=== PATIENT | female | born 1975 | race Caucasian/White ===

== ENCOUNTER 2020-01-29 10:08 | Outpatient (REF) | payer OTHER, SELFPAY | END 2020-01-29 10:09 | disposition home or self-care (01) | LOC: HO.BBR 10:08 | PROVIDERS: Visit Provider Internal Medicine | DX: E83.110 Hereditary hemochromatosis (principal) | CPT/HCPCS: 99195 ==

== ENCOUNTER 2020-05-19 09:40 | Outpatient (REF) | payer OTHER, SELFPAY | END 2020-05-19 09:41 | disposition home or self-care (01) | LOC: HO.BBR 09:40 | PROVIDERS: PCP Nurse Practitioner Family; Visit Provider Internal Medicine | DX: Z13.89 Encounter for screening for other disorder (principal) ==

== ENCOUNTER 2020-05-19 10:18 | Outpatient (REF) | payer SELFPAY ==
[2020-05-19 11:59] LABS: Vitamin D 25-OH Total 23.8 ng/mL (>30)
== END 2020-05-19 10:19 | disposition home or self-care (01) ==
LOC: HO.LNC 10:18
PROVIDERS: Visit Provider Pathology Anatomic Pathology & Clinical Pathology
DX: Z13.89 Encounter for screening for other disorder (principal)
CPT/HCPCS: 36415; 82306

== ENCOUNTER 2020-08-23 09:09 | Outpatient (REF) | payer OTHER, SELFPAY | END 2020-08-23 09:10 | disposition home or self-care (01) | LOC: HO.BBR 09:09 | PROVIDERS: Visit Provider Internal Medicine | DX: Z13.89 Encounter for screening for other disorder (principal) ==

== ENCOUNTER 2020-10-19 12:13 | Outpatient (REF) | payer OTHER, SELFPAY | END 2020-10-19 12:14 | disposition home or self-care (01) | LOC: HO.BBR 12:13 | PROVIDERS: Visit Provider Internal Medicine | DX: Z13.89 Encounter for screening for other disorder (principal) ==

== ENCOUNTER 2021-02-08 10:09 | Outpatient (REF) | payer OTHER, SELFPAY | END 2021-02-08 10:10 | disposition home or self-care (01) | LOC: HO.BBR 10:09 | PROVIDERS: PCP Nurse Practitioner Family; Visit Provider Internal Medicine | DX: Z13.89 Encounter for screening for other disorder (principal) ==

== ENCOUNTER 2021-03-23 15:46 | Outpatient (REF) | payer OTHER, SELFPAY | END 2021-03-23 15:47 | disposition home or self-care (01) | LOC: HO.LAB 15:46 | PROVIDERS: Visit Provider Internal Medicine | DX: Z20.822 Contact with and (suspected) exposure to COVID-19 (principal) | CPT/HCPCS: C9803; U0003; U0005 ==

== ENCOUNTER 2021-04-04 09:06 | Outpatient (REF) | payer OTHER, SELFPAY | END 2021-04-04 09:07 | disposition home or self-care (01) | LOC: HO.BBR 09:06 | PROVIDERS: Visit Provider Internal Medicine | DX: Z13.89 Encounter for screening for other disorder (principal) ==

== ENCOUNTER 2021-06-14 09:11 | Outpatient (REF) | payer OTHER, SELFPAY | END 2021-06-14 09:12 | disposition home or self-care (01) | LOC: HO.BBR 09:11 | PROVIDERS: Visit Provider Internal Medicine | DX: Z13.89 Encounter for screening for other disorder (principal) ==

== ENCOUNTER 2021-08-21 09:12 | Outpatient (REF) | payer OTHER, SELFPAY | END 2021-08-21 09:13 | disposition home or self-care (01) | LOC: HO.BBR 09:12 | PROVIDERS: Visit Provider Internal Medicine | DX: Z13.89 Encounter for screening for other disorder (principal) ==

== ENCOUNTER 2022-01-18 11:50 | Outpatient (REF) | payer OTHER, SELFPAY ==
[2022-01-18 13:44] LABS: Appearance Urine Clear; Color Urine Yellow; Glucose Urine UA Negative (Negative); Leukocyte Esterase Urine Small (1+) (Negative); Nitrite Urine Negative (Negative); UMIC TRIGGER UACC YES; Urine Blood Large (3+) (Negative); Urine Ketones Negative (Negative); Urine Protein Negative (Neg-Trace)
[2022-01-18 13:46] LABS: MANUAL DIFF FLAG NO
[2022-01-18 13:48] LABS: Basophils Percent Auto 0.6 % (0-2); Eosinophils Absolute Auto 0.1 X10*3/uL (0.0-0.4); Eosinophils Percent Auto 1.3 % (0-4); Hematocrit 35.3 % (37.0-47.0); Hemoglobin 11.8 g/dl (12.0-16.0); Imm Gran Abs Auto 0.02 X10*3/uL (0.00-0.03); Imm Gran Pct Auto 0.3 % (0.0-0.4); Lymphocytes Percent Auto 13.6 % (20-40); Mean Corpuscular HGB Conc 33.4 g/dl (31.0-35.0); Mean Corpuscular Hemoglobin 29.9 pg (27.0-33.0); Mean Corpuscular Volume 89.6 fL (80.0-98.0); Mean Platelet Volume 10.5 fL (9.4-12.3); Monocytes Absolute Auto 0.5 X10*3/uL (0.1-1.2); Monocytes Percent Auto 6.4 % (2-11); Neutrophils Absolute Auto 5.5 x10*3/uL (2.0-8.3); Neutrophils Percent Auto 77.8 % (45-73); Platelet Count 272 X10*3/uL (160-400); Red Blood Count 3.94 X10*6/uL (4.20-5.50); Red Cell Distribution Width 14.6 % (11.0-16.0)
[2022-01-18 13:55] LABS: Bacteria Urine None Seen (None Seen); Hyaline Casts Urine 0-2 /LPF (0-2); RBC Urine >20 /HPF (0-2); UACC Culture Trigger YES; WBC Urine 0-5 /HPF (0-5)
[2022-01-18 14:01] LABS: Alanine Aminotransferase 18 U/L (0-31); Albumin Level 3.8 g/dL (3.5-5.0); Alkaline Phosphatase 43 U/L (39-117); Anion Gap 11 (12-20); Aspartate Amino Transferase 17 U/L (5-31); Bilirubin Total 0.4 mg/dL (0.0-1.0); Blood Urea Nitrogen 11 mg/dL (9-16); Calcium 8.2 mg/dL (8.4-10.2); Carbon Dioxide 24 mmol/L (22-29); Chloride 107 mmol/L (96-108); Cholesterol 148 mg/dL; Estimated Glomerular Filt Rate > 60; Glucose Fasting 86 mg/dL (60-99); HDL Cholesterol 37 mg/dL; LDL Cholesterol Calculated 93 mg/dl; Sodium 138 mmol/L (135-145); Triglycerides 94 mg/dL
[2022-01-18 14:23] LABS: Ferritin 8 ng/mL (10-250); TSH reflex Free T4 0.52 uIU/mL (0.32-4.0)
== END 2022-01-18 11:51 | disposition home or self-care (01) ==
LOC: HO.10HDL 11:50
PROVIDERS: Visit Provider Nurse Practitioner Family
DX: Z00.00 Encounter for general adult medical examination without abnormal findings (principal)
CPT/HCPCS: 36415; 80053; 80061; 81001; 82728; 84443; 85025; 87086

== ENCOUNTER 2022-02-08 09:20 | Outpatient (REF) | payer OTHER, SELFPAY ==
--- NOTE | ~2022-02-08 | US_ITS ---
EXAMINATION: US THYROID CLINICAL INFORMATION: Nontoxic single thyroid nodule. COMPARISON: Ultrasound thyroid 01/09/2020. TECHNIQUE: Linear transducer grayscale and color Doppler examination with attention to the region of the thyroid. FINDINGS: SIZE: Measurements of the thyroid lobes and nodules are given in sagittal, anteroposterior and transverse dimensions respectively. Right Thyroid Lobe: 5.7 x 2.0 x 2.0 cm, volume 12.0 mL. Previously 5.7 x 1.8 x 2.2 cm, volume 10.8 mL. Parenchyma: The gland echotexture is heterogeneous. Thyroid vascularity is increased. Left Thyroid Lobe: 5.8 x 2.1 x 2.3 cm, volume 14.4 mL. Previously 5.1 x 2.1 x 2.4 cm, volume 13.4 mL. Parenchyma: The gland echotexture is heterogeneous. Thyroid vascularity is increased. Isthmus: 0.21 cm in maximum AP dimension. Previously 0.30 cm. Estimated total number of nodules greater than or equal to 1 cm: 4. 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 Location: Right superior. Size: 2.8 x 1.8 x 2.0 cm, volume 5.4 mL. Previously: 2.6 x 1.4 x 2.5 cm, volume 4.8 mL. Nodule characteristics: Composition: Solid/almost completely solid (2). Echogenicity: Isoechoic (1). Shape: Not taller than wide (0). Margins: Smooth (0). Echogenic Foci: Macrocalcifications (1). ACR TI-RADS total points: 4 ACR TI-RADS category: 4 Significant change in size (>/= 20% in 2 dimensions and minimal increase of 2 mm or 50% or greater increase in volume): No Change in features: No Change in ACR TI-RADS risk category: No 2. Location: Right mid. Size: 2.2 x 1.1 x 1.6 cm, volume 2.0 mL. Previously: 1.8 x 0.78 x 1.3 cm, volume 0.95 mL. Nodule characteristics: Composition: Solid/almost completely solid (2). Echogenicity: Isoechoic (1). Shape: Not taller than wide (0). Margins: Smooth (0). Echogenic Foci: Punctate echogenic foci (3). ACR TI-RADS total points: 6 ACR TI-RADS category: 4 Significant change in size (>/= 20% in 2 dimensions and minimal increase of 2 mm or 50% or greater increase in volume): Yes Change in features: No Change in ACR TI-RADS risk category: No 3. Location: Right mid. Size: 1.4 x 0.70 x 1.1 cm, volume 0.54 mL. Previously: 1.3 x 0.58 x 0.91 cm, volume 0.36 mL. Nodule characteristics: Composition: Solid/almost completely solid (2). Echogenicity: Isoechoic (1). Shape: Not taller than wide (0). Margins: Smooth (0). Echogenic Foci: None (0). ACR TI-RADS total points: 3 ACR TI-RADS category: 3 Significant change in size (>/= 20% in 2 dimensions and minimal increase of 2 mm or 50% or greater increase in volume): No Change in features: No Change in ACR TI-RADS risk category: No 4. Location: Left mid. Size: 2.8 x 2.0 x 1.6 cm, volume of 4.7 mL. Previously: 3.4 x 1.3 x 2.4 cm, volume 5.5 mL. Nodule characteristics: Composition: Solid/almost completely solid (2). Echogenicity: Isoechoic (1). Shape: Taller than wide (3). Margins: Smooth (0). Echogenic Foci: None (0). ACR TI-RADS total points: 6 ACR TI-RADS category: 4 Significant change in size (>/= 20% in 2 dimensions and minimal increase of 2 mm or 50% or greater increase in volume): No Change in features: No Change in ACR TI-RADS risk category: No NODES: No lymphadenopathy is seen in the tissue surrounding the thyroid gland. US/US thyroid IMPRESSION: Bilateral thyroid nodules are present. The most concerning nodules seen bilaterally meet criteria for TI-RADS category 4. These measure 2.8 and 2.2 cm in greatest dimension on the right, 2.8 cm on the left. Given the size greater than 1.5 cm, correlation with fine-needle aspiration is recommended. ACR TI-RADS RECOMMENDATION REFERENCE: * TR4 (4-6 points): FNA if more than or equal to 1.5 cm in maximum dimension, followup ultrasound in 1, 2, 3 and 5 years if 1 to 1.4 cm in maximum dimension. RECOMMENDATION: FINE NEEDLE ASPIRATION
== END 2022-02-08 09:21 | disposition home or self-care (01) ==
LOC: HO.HMGCX 09:20
PROVIDERS: PCP Nurse Practitioner Family; Visit Provider Nurse Practitioner Family
DX: E04.1 Nontoxic single thyroid nodule (principal)
CPT/HCPCS: 76536

== ENCOUNTER 2022-04-19 15:32 | Outpatient (REF) | payer OTHER, SELFPAY ==
[2022-04-19 15:50] LABS: MANUAL DIFF FLAG NO
[2022-04-19 17:52] LABS: Appearance Urine Clear; Color Urine Yellow; Glucose Urine UA Negative (Negative); Leukocyte Esterase Urine Negative (Negative); Nitrite Urine Negative (Negative); PH 8.5 (5.0-9.0); Specific Gravity - Urine 1.015 (1.005-1.025); UMIC TRIGGER UACC YES; Urine Blood Moderate (2+) (Negative); Urine Ketones Negative (Negative); Urine Protein Negative (Neg-Trace)
[2022-04-19 17:55] LABS: Basophils Absolute Auto 0.1 X10*3/uL (0.0-0.2); Basophils Percent Auto 0.8 % (0-2); Eosinophils Absolute Auto 0.3 X10*3/uL (0.0-0.4); Eosinophils Percent Auto 3.7 % (0-4); Hemoglobin 12.1 g/dl (12.0-16.0); Imm Gran Abs Auto 0.04 X10*3/uL (0.00-0.03); Imm Gran Pct Auto 0.6 % (0.0-0.4); Lymphocytes Absolute Auto 1.9 X10*3/uL (1.2-4.9); Lymphocytes Percent Auto 26.2 % (20-40); Mean Corpuscular HGB Conc 32.7 g/dl (31.0-35.0); Mean Corpuscular Hemoglobin 29.8 pg (27.0-33.0); Mean Corpuscular Volume 91.1 fL (80.0-98.0); Mean Platelet Volume 10.2 fL (9.4-12.3); Monocytes Absolute Auto 0.5 X10*3/uL (0.1-1.2); Monocytes Percent Auto 6.5 % (2-11); Neutrophils Absolute Auto 4.5 x10*3/uL (2.0-8.3); Neutrophils Percent Auto 62.2 % (45-73); Platelet Count 371 X10*3/uL (160-400); Red Blood Count 4.06 X10*6/uL (4.20-5.50); Red Cell Distribution Width 13.2 % (11.0-16.0); White Blood Count 7.2 X10*3/uL (4.8-10.8)
[2022-04-19 17:59] LABS: Bacteria Urine None Seen (None Seen); Hyaline Casts Urine 0-2 /LPF (0-2); RBC Urine >20 /HPF (0-2); Squamous Epithelial Cell Urine 0-2 /HPF (0-2); WBC Urine 0-5 /HPF (0-5)
[2022-04-19 18:36] LABS: Ferritin 8 ng/mL (10-250); Iron 33 mcg/dL (30-160); Percent Iron Saturation 12 % (15-50); Total Iron Binding Capacity 266 mcg/dL (228-428); Unsaturated Iron Binding 233 ug/dL
== END 2022-04-19 15:33 | disposition home or self-care (01) ==
LOC: HO.LAB 15:32
PROVIDERS: PCP Nurse Practitioner Family; Visit Provider Nurse Practitioner Family
DX: Z00.00 Encounter for general adult medical examination without abnormal findings (principal); E83.119 Hemochromatosis, unspecified
CPT/HCPCS: 36415; 81001; 82728; 83540; 85025

== ENCOUNTER 2022-08-31 06:42 | Day surgery (SDC) | payer OTHER, SELFPAY ==
--- NOTE | 2022-08-30 09:30 | P.CONAN_ITS ---
Documented by User: Faiza Campbell NP 08/30/22 09:33 HPI - Anesthesia Eval Consult details Narrative: 46yo F for Upper Endoscopy and Colonoscopy *Multiple Allergies* PMFSH Active Problems Active Problems: All Active Problems (Updated 04/04/22 @ 16:37 by Medardo Valdovinos MD) Upper respiratory tract infection (Acute) Hemochromatosis (Acute) Nodular thyroid disease (Acute) Physical exam (Acute) Past Medical History Medical History (Updated 04/04/22 @ 16:37 by Medardo Valdovinos MD) Asthma Enlarged thyroid Fibroadenoma of left breast Hemochromatosis Hepatic adenoma Hepatic hemangioma MVP (mitral valve prolapse) Nodular thyroid disease Renal cyst Family History Family History Father HTN (hypertension) Type 2 diabetes mellitus High cholesterol Ulcerative colitis Mother Pulmonary embolism Multiple myeloma Maternal Grandmother Diabetes mellitus CVD (cardiovascular disease) Maternal Grandfather CVD (cardiovascular disease) Paternal Grandfather Substance use disorder Paternal Grandmother Uterine cancer Maternal Uncle CVD (cardiovascular disease) Substance use disorder Sister No problems noted. Son No problems noted. Daughter No problems noted. Surgical History Surgical History History of section History of tonsillectomy and adenoidectomy Social History Social History Housing: House Alcohol intake: current Alcohol intake frequency: holidays/special occasions only Patient Tobacco Use Status: Never used Tobacco e-Cigarette/Vaping Use: Never Used Second Hand Smoke Exposure: No Advance Directives: No Advance Directives Information Provided: Yes Nutrition Risks: No Nutritional Risk service: No Current occupational status: employed Current occupation: [employer] Current occupational exposures/hazards: No Cognitive needs: No Hearing needs: No Vision needs: No Meds Allergies Allergy/AdvReac Type Severity Reaction Status Date / Time hydrocodone [HYDROCODONE] Allergy Intermediate HIVES Verified 04/04/22 16:21 amoxicillin [Augmentin] Allergy Unknown unknown Verified 04/04/22 16:21 chlorhexidine Allergy Unknown unknown Verified 04/04/22 16:21 clavulanic acid [Augmentin] Allergy Unknown unknown Verified 04/04/22 16:21 doxycycline Allergy Unknown anaphylaxis Verified 04/04/22 16:21 ibuprofen [IBUPROFEN] Allergy Unknown HIVES Verified 04/04/22 16:21 meperidine [Demerol] Allergy Unknown unknown Verified 04/04/22 16:21 morphine [MORPHINE] Allergy Unknown HIVES Verified 04/04/22 16:21 prednisone Allergy neuropathy Verified 08/30/22 11:49 acetaminophen [From PERCOCET] AdvReac Unknown HIVES Verified 04/04/22 16:21 oxycodone [From PERCOCET] AdvReac Unknown HIVES Verified 04/04/22 16:21 Home Medications Medication Instructions Recorded Confirmed Last Taken Type albuterol sulfate 90 mcg/actuation 2 puff PO QID PRN 03/31/20 01/09/22 Unknown History aerosol inhaler budesonide-formoterol HFA 160 2 puff inhalation BID 04/04/22 Unknown History mcg-4.5 mcg/actuation aerosol inhaler (Symbicort) montelukast 10 mg tablet 10 mg PO DAILY 04/04/22 Unknown History norgestimate 0.25 mg-ethinyl 1 tab PO DAILY 04/04/22 Unknown History estradiol 35 mcg tablet Exam Exam Date and Time: August 30, 2022 0930 Pertinent Lab Results Pertinent Lab Results: Laboratory Tests 01/18/22 04/19/22 11:25 15:46 WBC 7.2 Hgb 12.1 Hct 37.0 Plt Count 371 D Sodium 138 Potassium 4.0 Chloride 107 Carbon Dioxide 24 BUN 11 Creatinine 0.74 Assessment and Plan Assessment Anesthesia Assessment: Chart Reviewed Documented by User: Johnny Baker MD 08/31/22 07:32 [facility] Past Medical History Medical History (Updated 04/04/22 @ 16:37 by Medardo Valdovinos MD) Asthma Enlarged thyroid Fibroadenoma of left breast Hemochromatosis Hepatic adenoma Hepatic hemangioma MVP (mitral valve prolapse) Nodular thyroid disease Renal cyst Family History Family History Father HTN (hypertension) Type 2 diabetes mellitus High cholesterol Ulcerative colitis Mother Pulmonary embolism Multiple myeloma Maternal Grandmother Diabetes mellitus CVD (cardiovascular disease) Maternal Grandfather CVD (cardiovascular disease) Paternal Grandfather Substance use disorder Paternal Grandmother Uterine cancer Maternal Uncle CVD (cardiovascular disease) Substance use disorder Sister No problems noted. Son No problems noted. Daughter No problems noted. Family history of problems with anesthesia: No Surgical History Surgical History History of section History of tonsillectomy and adenoidectomy History of Problems with Anesthesia: No Social History Social History Housing: House Alcohol intake: current Alcohol intake frequency: holidays/special occasions only Patient Tobacco Use Status: Never used Tobacco e-Cigarette/Vaping Use: Never Used Second Hand Smoke Exposure: No Advance Directives: No Advance Directives Information Provided: Yes Nutrition Risks: No Nutritional Risk service: No Current occupational status: employed Current occupation: [employer] Current occupational exposures/hazards: No Cognitive needs: No Hearing needs: No Vision needs: No Meds Allergies Allergy/AdvReac Type Severity Reaction Status Date / Time hydrocodone [HYDROCODONE] Allergy Intermediate HIVES Verified 04/04/22 16:21 amoxicillin [Augmentin] Allergy Unknown unknown Verified 04/04/22 16:21 chlorhexidine Allergy Unknown unknown Verified 04/04/22 16:21 clavulanic acid [Augmentin] Allergy Unknown unknown Verified 04/04/22 16:21 doxycycline Allergy Unknown anaphylaxis Verified 04/04/22 16:21 ibuprofen [IBUPROFEN] Allergy Unknown HIVES Verified 04/04/22 16:21 meperidine [Demerol] Allergy Unknown unknown Verified 04/04/22 16:21 morphine [MORPHINE] Allergy Unknown HIVES Verified 04/04/22 16:21 prednisone Allergy neuropathy Verified 08/30/22 11:49 acetaminophen [From PERCOCET] AdvReac Unknown HIVES Verified 04/04/22 16:21 oxycodone [From PERCOCET] AdvReac Unknown HIVES Verified 04/04/22 16:21 Home Medications Medication Instructions Recorded Confirmed Last Taken Type albuterol sulfate 90 mcg/actuation 2 puff PO QID PRN 03/31/20 01/09/22 Unknown History aerosol inhaler budesonide-formoterol HFA 160 2 puff inhalation BID 04/04/22 Unknown History mcg-4.5 mcg/actuation aerosol inhaler (Symbicort) montelukast 10 mg tablet 10 mg PO DAILY 04/04/22 Unknown History norgestimate 0.25 mg-ethinyl 1 tab PO DAILY 04/04/22 Unknown History estradiol 35 mcg tablet Exam Airway Mallampati Class: III TM Dist: <=3cm Neck ROM: Limited Heart: rrr Lungs: cta Assessment and Plan Assessment Anesthesia Assessment: Anesthesia Plan Discussed Final Anesthetic Review Family History of Problems with Anesthesia: No History of Problems with Anesthesia: No NPO: Yes ASA Class: II Final Preanesthetic Review: No Changes in Pt Med Stat, Meds/Allgs Chart Reviewed, Consent Obtained/Reviewed and Anes Risks/Benef Reviewed Patient Risk: Intermediate Procedure Risk: Intermediate Anesthetic Plan Anesthetic Plan: MAC: and Agree w/ Assess. and Plan Disposition: Standard PACU
[2022-08-31 07:06] LABS: UPreg QC Valid YES; Urine Pregnancy NEGATIVE (NEGATIVE)
[2022-08-31 07:09] VITALS: BP 96/58; PULSE 75; RESP 16; TEMP 36.4; O2SAT 97; BMI 24.8
--- NOTE | 2022-08-31 07:31 | MHC.SHP ---
Pre-Procedural Eval Section A Date of Service: 08/31/22 Section B Chief Complaint: screening,reflux,dysphagia Details of Present Illness: see H&P no changes Relevant Family History (Specify if Yes): No Relevant Social History: None Present Medications: see Short Stay [facility] assessment Medical History: No relevant PMH History of Previous Operations: Relevant previous surgery/procedure and date(s) Allergies: Allergies Allergy/AdvReac Type Severity Reaction Status Date / Time hydrocodone [HYDROCODONE] Allergy Intermediate HIVES Verified 04/04/22 16:21 amoxicillin [Augmentin] Allergy Unknown unknown Verified 04/04/22 16:21 chlorhexidine Allergy Unknown unknown Verified 04/04/22 16:21 clavulanic acid [Augmentin] Allergy Unknown unknown Verified 04/04/22 16:21 doxycycline Allergy Unknown anaphylaxis Verified 04/04/22 16:21 ibuprofen [IBUPROFEN] Allergy Unknown HIVES Verified 04/04/22 16:21 meperidine [Demerol] Allergy Unknown unknown Verified 04/04/22 16:21 morphine [MORPHINE] Allergy Unknown HIVES Verified 04/04/22 16:21 prednisone Allergy neuropathy Verified 08/30/22 11:49 acetaminophen [From PERCOCET] AdvReac Unknown HIVES Verified 04/04/22 16:21 oxycodone [From PERCOCET] AdvReac Unknown HIVES Verified 04/04/22 16:21 Review of Systems Sugical H&P ROS: Negative: Constitution, Cardiovascular, Respiratory, Neurological, Psychiatric, Hem-Onc, Allergic/Immunologic, Gastrointestinal, Genitourinary, Musculoskeletal, Integumentary, Endocrine and Eyes/Ears/Nose/Throat Exam Surgical H&P Exam: Normal: HEENT, Normal: Heart, Normal: Lungs, Normal: Extremities, Normal: Abdomen, Normal: Skin and Normal: Neurological Plan Diagnosis/Plan: Unchanged I have reviewed the history and physical and performed a pertinent physical examination on my patient. No changes have occurred unless specified. Time Spent With Patient Time: Total time managing care of this patient today ____ minutes.
[2022-08-31 08:14] VITALS: BP 95/46; PULSE 77; RESP 16; TEMP 36.3; O2SAT 97
--- NOTE | 2022-08-31 08:18 | PM.OP ---
Brief Operative Note Date of Service: 08/31/22 Pre-op diagnosis: dysphagia, screenin Post-op diagnosis: same Procedure: egd colon Surgeon: Raúl Pike Anesthesia: MAC Was an Clinical Educator used for this Procedure?: No Estimated blood loss (mL): 2 Pathology: other Condition: stable Disposition: PACU
[2022-08-31 08:29] VITALS: BP 96/53; PULSE 87; RESP 16; TEMP 36.6; O2SAT 100
--- NOTE | 2022-08-31 09:06 | OP_ITS ---
DATE OF SERVICE: 08/31/2022 SURGEON: Raúl Pike MD INDICATIONS: Dysphagia and colon cancer screening. PREOPERATIVE DIAGNOSIS: POSTOPERATIVE DIAGNOSIS: PROCEDURE PERFORMED: Upper endoscopy with biopsy and colonoscopy to the terminal ileum with biopsy. ESTIMATED BLOOD LOSS: COMPLICATIONS: ANESTHESIA: Monitored anesthesia care. ASSISTANTS: SPECIMENS: DESCRIPTION OF PROCEDURE: History and physical performed. The risks and benefits of the procedure were explained to the patient. Informed consent was obtained. The patient was placed in left lateral decubitus position. The Olympus videogastroscope was introduced into the esophagus, stomach, and duodenum. Examination was performed. The scope was removed. She tolerated the procedure well and was repositioned for colonoscopy. Digital rectal exam was performed and it was found to be normal. The Olympus pediatric colonoscope was introduced into the rectum and advanced to the cecum without difficulty. The cecum was identified by transillumination, palpation, and identification of the ileocecal valve. Examination was performed. The scope was removed. She tolerated both procedures well and was returned to the recovery area in stable condition. FINDINGS: Upper endoscopy: 1. The esophagus showed an irregular EG junction. This was biopsied. 2. The stomach was normal. Antral biopsies were obtained to rule out H pylori. 3. Duodenum: The bulb and second portion were normal. Biopsies were obtained to evaluate for any evidence of celiac disease. Colonoscopy: The terminal ileum was normal. Visualized colonic mucosa was normal. Quality of the prep was good. There were no polyps. There was no evidence of colitis. Retroflexed examination showed no abnormalities. Biopsies were obtained from the sigmoid randomly. IMPRESSION: 1. Normal upper endoscopy. 2. Normal colonoscopy. RECOMMENDATION: Follow up biopsy results. MD HEIDI Page/JAKYL / [id number]
== END 2022-08-31 08:50 | disposition home or self-care (01) ==
PROVIDERS: Nurse Practitioner; PCP Nurse Practitioner Family; Visit Provider Internal Medicine Gastroenterology
PROC: (CPT 45378; principal; 2022-08-31 07:30)
DX: Z12.11 Encounter for screening for malignant neoplasm of colon (principal); R13.10 Dysphagia, unspecified; K21.9 Gastro-esophageal reflux disease without esophagitis; J45.909 Unspecified asthma, uncomplicated; Z79.899 Other long term (current) drug therapy; Z88.1 Allergy status to other antibiotic agents; Z88.5 Allergy status to narcotic agent; Z88.8 Allergy status to other drugs, medicaments and biological substances
CPT/HCPCS: 45378; 43239; 81025; 88305; 88342; J2250

== ENCOUNTER 2022-12-21 08:56 | Outpatient (REF) | payer OTHER, SELFPAY ==
[2022-12-21 11:02] LABS: MANUAL DIFF FLAG NO
[2022-12-21 11:06] LABS: Basophils Absolute Auto 0.1 X10*3/uL (0.0-0.2); Basophils Percent Auto 1.3 % (0-2); Eosinophils Absolute Auto 0.1 X10*3/uL (0.0-0.4); Eosinophils Percent Auto 3.1 % (0-4); Hematocrit 33.9 % (37.0-47.0); Hemoglobin 10.2 g/dl (12.0-16.0); Imm Gran Abs Auto 0.01 X10*3/uL (0.00-0.03); Imm Gran Pct Auto 0.2 % (0.0-0.4); Lymphocytes Absolute Auto 1.5 X10*3/uL (1.2-4.9); Lymphocytes Percent Auto 32.2 % (20-40); Mean Corpuscular HGB Conc 30.1 g/dl (31.0-35.0); Mean Corpuscular Hemoglobin 24.9 pg (27.0-33.0); Mean Corpuscular Volume 82.7 fL (80.0-98.0); Mean Platelet Volume 10.4 fL (9.4-12.3); Monocytes Absolute Auto 0.4 X10*3/uL (0.1-1.2); Monocytes Percent Auto 9.3 % (2-11); Neutrophils Absolute Auto 2.5 x10*3/uL (2.0-8.3); Neutrophils Percent Auto 53.9 % (45-73); Platelet Count 439 X10*3/uL (160-400); Red Cell Distribution Width 17.8 % (11.0-16.0); White Blood Count 4.5 X10*3/uL (4.8-10.8)
[2022-12-21 11:08] LABS: Appearance Urine Clear; Color Urine Yellow; Glucose Urine UA Negative (Negative); Leukocyte Esterase Urine Negative (Negative); Nitrite Urine Negative (Negative); PH 6.5 (5.0-9.0); Specific Gravity - Urine 1.025 (1.005-1.025); UMIC TRIGGER UACC YES; Urine Blood Large (3+) (Negative); Urine Ketones Negative (Negative); Urine Protein Trace mg/dL (Neg-Trace)
[2022-12-21 11:22] LABS: Bacteria Urine Trace (None Seen); Hyaline Casts Urine 0-2 /LPF (0-2); WBC Urine 0-5 /HPF (0-5)
[2022-12-21 11:41] LABS: Ferritin 7 ng/mL (10-250); TSH reflex Free T4 1.07 uIU/mL (0.32-4.0)
[2022-12-21 11:51] LABS: Alanine Aminotransferase 12 U/L (0-31); Alkaline Phosphatase 47 U/L (39-117); Anion Gap 12 (12-20); Aspartate Amino Transferase 17 U/L (5-31); Bilirubin Total 0.1 mg/dL (0.0-1.0); Blood Urea Nitrogen 10 mg/dL (9-16); Calcium 8.8 mg/dL (8.4-10.2); Carbon Dioxide 20 mmol/L (22-29); Chloride 112 mmol/L (96-108); Cholesterol 155 mg/dL (<200); Estimated Glomerular Filt Rate > 60; Glucose Fasting 105 mg/dL (60-99); HDL Cholesterol 44 mg/dL (>40); Iron 17 mcg/dL (30-160); LDL Cholesterol Calculated 96 mg/dL (<100); Percent Iron Saturation 6 % (15-50); Potassium 4.3 mmol/L (3.3-5.1); Sodium 140 mmol/L (135-145); Total Iron Binding Capacity 280 mcg/dL (228-428); Triglycerides 78 mg/dL (<150); Unsaturated Iron Binding 263 ug/dL
== END 2022-12-21 08:57 | disposition home or self-care (01) ==
LOC: HO.10HDL 08:56
PROVIDERS: Visit Provider Nurse Practitioner Family
DX: Z13.220 Encounter for screening for lipoid disorders (principal); E04.1 Nontoxic single thyroid nodule; K22.70 Barrett's esophagus without dysplasia; E83.119 Hemochromatosis, unspecified
CPT/HCPCS: 36415; 80053; 80061; 81001; 82728; 83540; 84443; 85025

== ENCOUNTER 2023-05-02 07:13 | Outpatient (AMB) | payer OTHER, SELFPAY ==
--- NOTE | 2023-05-02 07:24 | A.OFFPC_ITS ---
Intake Visit Reasons: Back muscle sprain [phone] Allergies hydrocodone [HYDROCODONE] Allergy (Intermediate, Verified 09/27/22 14:01) HIVES amoxicillin [Augmentin] Allergy (Unknown, Verified 09/27/22 14:01) unknown chlorhexidine Allergy (Unknown, Verified 09/27/22 14:01) unknown clavulanic acid [Augmentin] Allergy (Unknown, Verified 09/27/22 14:01) unknown doxycycline Allergy (Unknown, Verified 09/27/22 14:01) anaphylaxis ibuprofen [IBUPROFEN] Allergy (Unknown, Verified 09/27/22 14:01) HIVES meperidine [Demerol] Allergy (Unknown, Verified 09/27/22 14:01) unknown morphine [MORPHINE] Allergy (Unknown, Verified 09/27/22 14:01) HIVES prednisone Allergy (Verified 09/27/22 14:01) neuropathy acetaminophen [From PERCOCET] Adverse Reaction (Unknown, Verified 09/27/22 14:01) HIVES oxycodone [From PERCOCET] Adverse Reaction (Unknown, Verified 09/27/22 14:01) HIVES Medication List - Last Reconciled 05/02/23 by ISAIAH Briones albuterol sulfate 90 mcg/actuation 2 puffs PO QID PRN budesonide-formoterol 160-4.5 mcg/actuation (Symbicort) 2 puffs inhalation BID cyclobenzaprine 10 mg PO BID PRN 15 days epinephrine (Auvi-Q) IM lifitegrast 5% (Xiidra) drps ophthalmic (eye) montelukast 10 mg PO DAILY norgestimate-ethinyl estradiol 0.25-35 mg-mcg 1 tab PO DAILY omeprazole 20 mg PO DAILY Tobacco use date assessed: 09/27/22 HPI Back muscle sprain [phone] HPI Details Pt c/o pain to her right occipital region that radiates to her right posterior neck and trap region. She was given cyclobenzaprine which does help. Will refer to PT. Denies fever, chills, and dizziness. Neck strain [facility] Medical History (Updated 05/02/23 @ 07:28 by ISAIAH Briones) Barretts esophagus Enlarged thyroid MVP (mitral valve prolapse) Fibroadenoma of left breast Renal cyst Hepatic hemangioma Hepatic adenoma Asthma Hemochromatosis Nodular thyroid disease Surgical History (Updated 02/20/23 @ 17:20 [facility] H/O thyroidectomy History of tonsillectomy and adenoidectomy History of section Family History Father HTN (hypertension) Type 2 diabetes mellitus High cholesterol Ulcerative colitis Mother Pulmonary embolism Multiple myeloma Maternal Grandmother Diabetes mellitus CVD (cardiovascular disease) Maternal Grandfather CVD (cardiovascular disease) Paternal Grandfather Substance use disorder Paternal Grandmother Uterine cancer Maternal Uncle CVD (cardiovascular disease) Substance use disorder Sister No problems noted. Son No problems noted. Daughter No problems noted. Social History Housing: House Alcohol intake: current Alcohol intake frequency: holidays/special occasions only Patient Tobacco Use Status: Never used Tobacco e-Cigarette/Vaping Use: Never Used Second Hand Smoke Exposure: No service: No Current occupational status: employed Current occupation: [employer] Current occupational exposures/hazards: No Cognitive needs: No Hearing needs: No Vision needs: No Questionnaire Thrive Questionnaire Date Thrive assessed: 01/09/22 ABI-7 AMB Questionnaire ABI-7 Date ABI - 7 assessed: 01/09/22 Source: Developed by Drs. Rosales Rose, Thelma Willams, King Larson and colleagues, with an educational marjorie from [employer]. Review of Systems Const Reports as per HPI Physical exam (Primary Care) Tobacco/Smoking Status: Tobacco use Status Tobacco use date assessed 09/27/22 05/02/23 07:25 Patient Tobacco Use Status Never used Tobacco 05/02/23 07:25 e-Cigarette/Vaping Use Never Used 05/02/23 07:25 Thrive Assessment: Date of Thrive Assessment Date Thrive assessed 01/09/22 05/02/23 07:25 Const General: cooperative Orientation/consciousness: patient oriented x3 Neuro General: patient oriented x3 Psych Appearance: grossly normal Mental Status: mental status grossly normal Speech and movement: Clear speech present Affect: normal affect Attitude: cooperative Thought process: Normal thought process present Thought content: Normal thought content present Insight: Good insight present (Psych) Judgement: Good judgement present (Psych) Telehealth Telehealth Location of provider rendering services: practice address Location of patient: address on file Patient Identification confirmed using: Name, : Yes Telehealth method: video Patient verbally consented to treatment: Yes Patient verbally consented to billing insurance company: Yes Patient informed of any privacy concerns related to visit: Yes Minutes spent on Phone/Video with Pt.: 10 Assessment and Plan Assessment & Plan (1) Neck strain: Code(s): S16.1XXA - Strain of muscle, fascia and tendon at neck level, initial encounter Plan: Referred to PT, cyclobenzaprine sent Plan The patient agreed to the use of a medical research associate for this encounter. Scribed for ISAIAH Babb by Rubina Carcamo medical research associate, on 05/02/2023 at 07:25 EST. Orders: Orders PT Evaluation and Treatment Today S16.1XXA - Strain of muscle, fascia and tendon at neck level, initial encounter Medications: New cyclobenzaprine 10 mg PO BID 15 days PRN 30 tabs 0RF muscle spasm Coding Level of Care Code Tele Est Pt Level 3 (00710) Diagnoses Neck strain S16.1XXA
== END 2023-05-02 07:47 | disposition home or self-care (01) ==
LOC: HO.HMGC 07:13
PROVIDERS: PCP Nurse Practitioner Family; Visit Provider Nurse Practitioner Family
DX: S16.1XXA Strain of muscle, fascia and tendon at neck level, initial encounter (principal)
CPT/HCPCS: 99213

== ENCOUNTER 2023-06-27 09:33 | Outpatient (AMB) | payer OTHER, SELFPAY ==
[2023-06-27 09:36] VITALS: BP 102/60; PULSE 82; O2SAT 98; BMI 25.5
--- NOTE | 2023-06-27 09:36 | MHC.PC.OV ---
Vital Signs 06/27/23 09:36 Height 5 ft 3 in Weight 144 lb BMI 25.5 BP 102/60 Blood Pressure Location Rt brachial Position Sitting Pulse 82 Pulse Source Pulse Oximeter Pulse Oximetry (%) 98 Oxygen Delivery Method Room Air Intake Visit Reasons: Followup UC tachycardia Intake Note: pt is here for f/u tachycardia Psychiatric Technician Assistant Required: No Accompanied by: Self / Same As Patient Allergies hydrocodone [HYDROCODONE] Allergy (Intermediate, Verified 06/27/23 09:38) HIVES amoxicillin [Augmentin] Allergy (Unknown, Verified 06/27/23 09:38) unknown chlorhexidine Allergy (Unknown, Verified 06/27/23 09:38) unknown clavulanic acid [Augmentin] Allergy (Unknown, Verified 06/27/23 09:38) unknown doxycycline Allergy (Unknown, Verified 06/27/23 09:38) anaphylaxis ibuprofen [IBUPROFEN] Allergy (Unknown, Verified 06/27/23 09:38) HIVES meperidine [Demerol] Allergy (Unknown, Verified 06/27/23 09:38) unknown morphine [MORPHINE] Allergy (Unknown, Verified 06/27/23 09:38) HIVES prednisone Allergy (Verified 06/27/23 09:38) neuropathy acetaminophen [From PERCOCET] Adverse Reaction (Unknown, Verified 06/27/23 09:38) HIVES oxycodone [From PERCOCET] Adverse Reaction (Unknown, Verified 06/27/23 09:38) HIVES Medication List - Last Reconciled 06/27/23 by Brett Sharma, OIL WELL SERVICE OPERATOR HELPER- acyclovir 400 mg PO BID budesonide-formoterol 160-4.5 mcg/actuation (Symbicort) 2 puffs inhalation BID calcitriol mcg PO epinephrine (Auvi-Q) IM esomeprazole magnesium 40 mg PO DAILY levalbuterol tartrate 45 mcg/actuation 2 inhalations inhalation Q6H levothyroxine 112 mcg PO DAILY lifitegrast 5% (Xiidra) drps ophthalmic (eye) montelukast 10 mg PO DAILY norethindrone acetate 5 mg PO DAILY Tobacco use date assessed: 06/27/23 Dental Screening Dental Screen Date: 06/27/23 Did you have a dental visit in the last 12 months?: Yes Did you have a dental problem in the last 6 months where you did not have access to dental care?: No Was dental information given to patient?: Patient has dentist HPI Followup UC tachycardia HPI Details Pt reports episodes of tachycardia. She reports a feeling of doom with these but states this has improved. Pt was seen at an urgent care and EKG was normal according to pt. She is currently wearing a 14 day holter monitor. I look forward to final results from this. Pt knows to document if she develops tachycardia type symptoms, or any other symptoms while wearing this monitor . Pt will be following up with cardiology. She is also seeing an emergency veterinary technician due to asthma. Pt had a recent viral illness and reports doing better, with minimal residual symptoms (describing an uptake in asthma symptoms while battling illness). denies any CP, increased SOB, dizziness, blurred vision. [facility] Medical History (Updated 06/27/23 @ 12:26 by ISAIAH Briones) Barretts esophagus Enlarged thyroid MVP (mitral valve prolapse) Fibroadenoma of left breast Renal cyst Hepatic hemangioma Hepatic adenoma Asthma Hemochromatosis Nodular thyroid disease Surgical History H/O thyroidectomy History of tonsillectomy and adenoidectomy History of section Family History Father HTN (hypertension) Type 2 diabetes mellitus High cholesterol Ulcerative colitis Mother Pulmonary embolism Multiple myeloma Maternal Grandmother Diabetes mellitus CVD (cardiovascular disease) Maternal Grandfather CVD (cardiovascular disease) Paternal Grandfather Substance use disorder Paternal Grandmother Uterine cancer Maternal Uncle CVD (cardiovascular disease) Substance use disorder Sister No problems noted. Son No problems noted. Daughter No problems noted. Social History Housing: House Alcohol intake: current Alcohol intake frequency: holidays/special occasions only Patient Tobacco Use Status: Never used Tobacco e-Cigarette/Vaping Use: Never Used Second Hand Smoke Exposure: No service: No Current occupational status: employed Current occupation: [employer] Current occupational exposures/hazards: No Cognitive needs: No Hearing needs: No Vision needs: No Questionnaire Thrive Questionnaire Date Thrive assessed: 01/09/22 ABI-7 AMB Questionnaire ABI-7 Date ABI - 7 assessed: 01/09/22 Source: Developed by Drs. Rosales Rose, Thelma Willams, King Larson and colleagues, with an educational marjorie from [employer]. Review of Systems Const Reports as per HPI Physical exam (Primary Care) Vital Signs: Last Vital Signs Pulse 82 06/27/23 09:36 BP 102/60 06/27/23 09:36 Pulse Ox 98 06/27/23 09:36 Oxygen Delivery Method Room Air 06/27/23 09:36 BMI result Body Mass Index 25.5 Tobacco/Smoking Status: Tobacco use Status Tobacco use date assessed 06/27/23 06/27/23 09:43 Patient Tobacco Use Status Never used Tobacco 06/27/23 09:43 e-Cigarette/Vaping Use Never Used 06/27/23 09:43 Thrive Assessment: Date of Thrive Assessment Date Thrive assessed 01/09/22 06/27/23 09:43 Const Other: slightly diaphoretic, speaking in full sentences while wearing a mask, though stopped a couple of times, mid senstence, to catch breath. General: cooperative Orientation/consciousness: patient oriented x3 Resp Effort & Inspection: normal respiratory effort Auscultation: clear to auscultation bilaterally Cardio Rate: regular rate Rhythm: regular rhythm Heart sounds: S1 normal heart sound present, S2 normal heart sound present and no murmurs Neuro General: patient oriented x3 Psych Appearance: grossly normal Mental Status: mental status grossly normal Speech and movement: Normal speech and movement present Affect: normal affect Attitude: cooperative Thought process: Normal thought process present Thought content: Normal thought content present Insight: Good insight present (Psych) Judgement: Good judgement present (Psych) Assessment and Plan Assessment & Plan (1) Viral illness: Code(s): B34.9 - Viral infection, unspecified Plan: pt is slowly getting better, though still has some residual symptoms (2) Tachycardia: Code(s): R00.0 - Tachycardia, unspecified Plan: holter monitor present (3) Asthma: Code(s): J45.909 - Unspecified asthma, uncomplicated Plan The patient agreed to the use of a medical receptionist medical assistant for this encounter. Scribed for ISAIAH Babb by Rubina Carcamo medical receptionist medical assistant, on 06/27/2023 at 10:15 EST. Coding Level of Care Code Est Pt Level 3 (67470) Diagnoses Viral illness B34.9 Tachycardia R00.0 Asthma J45.909
== END 2023-06-27 10:26 | disposition home or self-care (01) ==
PROVIDERS: PCP Nurse Practitioner Family; Visit Provider Nurse Practitioner Family
DX: B34.9 Viral infection, unspecified (principal); R00.0 Tachycardia, unspecified; J45.909 Unspecified asthma, uncomplicated
CPT/HCPCS: 99213

== ENCOUNTER 2023-07-04 10:00 | Outpatient (RCR) | payer OTHER, SELFPAY ==
--- NOTE | 2023-05-30 13:45 | MHC.PT.EP ---
[facility] [place] Office [place] Office [place] Office [address] Rosie Hodge [address] [phone] F: [phone] F: [phone] F: [phone] F: [phone] Physical Therapy Plan of Care Date of Evaluation: 05/30/23 Date of Surgery: Diagnosis: neck strain Assessment: Pt is a 47yo female who was referred to PT for neck pain/muscle strain. PT exam reveals dysfunctional cervical motion, increased tissue density with new scar tissue, impaired deep neck flexor endurance and poor postural awareness. Skilled PT indicated to address these impairments, teach her how to manage symptoms at home, to improve QOL and return to PLOF. Pt in agreement with POC and is motivated to participate. Frequency and Duration: The patient will be seen 2x/week x 4 weeks Short Term Goals: 1. In 2 weeks patient will be able to Independently complete phase 1 exercises including chin tuck, and cervical stretching. 2. In 2 weeks, patient will report no pain when performing cervical neutral exercises. 3. In 2 weeks, patient will be I with scar tissue self-massage, and report reduction in sensitivity by 25%. Care Home Goals: 1. In 4 weeks, patient will be able to turn head without pain to check blind spot during driving. 2. In 4 weeks, patient will report decreased muscle and neck pain with improved NDI score by 50% 3. In 4 weeks, patient will improve deep neck flexor endurance to WNL. Treatment Plan: Modalities to reduce pain, spasms and effusion. Manual therapy to restore motion and function. Therapeutic exercise to improve strength and flexibility. Neuromuscular re-education for posture and balance. Therapeutic activities to return to functional activities of daily living. Electronically signed by: Nancy Kiran PT, DPT Please sign and return to therapist. Thank you for your referral.
--- NOTE | 2023-11-20 12:39 | MHC.PT.DC ---
[facility] [place] Office [place] Office [place] Office [address] Rosie Hodge [address] [phone] F: [phone] F: [phone] F: [phone] F: [phone] Physical Therapy Discharge Report Diagnosis: neck strain Date of Surgery: Date of Evaluation: 05/30/23 Date of Discharge: 07/04/23 Treatments to Date: 9 Cancellations to Date: No Shows to Date: Discharge Status: Achieved Goals Improved Function Independent with HEP Discharge Summary: Pt was referred to PT for trapezius strain. Pt fully participated in 9 treatment sessions. Focus of sessions including postural re-training, deep neck flexor endurance training, periscapular strengthening. By end of care, pt is I with HEP, and is encouraged by the improvement of deep neck flexor endurance and reduced pain overall. Pt in agreement with D/C to HEP. Thank you for this referral. Electronically signed by: Nancy Kiran PT, DPT Please sign and return to therapist. Thank you for your referral.
== END 2023-11-20 12:39 | disposition home or self-care (01) ==
LOC: HO.PT 10:00
PROVIDERS: PCP Nurse Practitioner Family; Visit Provider Nurse Practitioner Family
DX: S16.1XXA Strain of muscle, fascia and tendon at neck level, initial encounter (principal)
CPT/HCPCS: 97110; 97140; 97161

== ENCOUNTER 2023-07-11 08:10 | Outpatient (AMB) | payer OTHER, SELFPAY ==
--- NOTE | 2023-07-11 07:23 | MHC.PC.OV ---
Intake Visit Reasons: medication follow up/912-3123 Allergies hydrocodone [HYDROCODONE] Allergy (Intermediate, Verified 07/11/23 07:40) HIVES amoxicillin [Augmentin] Allergy (Unknown, Verified 07/11/23 07:40) unknown chlorhexidine Allergy (Unknown, Verified 07/11/23 07:40) unknown clavulanic acid [Augmentin] Allergy (Unknown, Verified 07/11/23 07:40) unknown doxycycline Allergy (Unknown, Verified 07/11/23 07:40) anaphylaxis ibuprofen [IBUPROFEN] Allergy (Unknown, Verified 07/11/23 07:40) HIVES meperidine [Demerol] Allergy (Unknown, Verified 07/11/23 07:40) unknown morphine [MORPHINE] Allergy (Unknown, Verified 07/11/23 07:40) HIVES prednisone Allergy (Verified 07/11/23 07:40) neuropathy acetaminophen [From PERCOCET] Adverse Reaction (Unknown, Verified 07/11/23 07:40) HIVES oxycodone [From PERCOCET] Adverse Reaction (Unknown, Verified 07/11/23 07:40) HIVES Medication List - Last Reconciled 07/11/23 by Brett Sharma, MAGNETIC PROSPECTOR- acyclovir 400 mg PO BID budesonide-formoterol 160-4.5 mcg/actuation (Symbicort) 2 puffs inhalation BID calcitriol mcg PO epinephrine (Auvi-Q) IM esomeprazole magnesium 40 mg PO DAILY levalbuterol tartrate 45 mcg/actuation 2 inhalations inhalation Q6H levothyroxine 112 mcg PO DAILY lifitegrast 5% (Xiidra) drps ophthalmic (eye) montelukast 10 mg PO DAILY norethindrone acetate 5 mg PO DAILY Tobacco use date assessed: 06/27/23 [facility] medication follow up/702-3952 HPI Details Tachycardia: Pt recently had a 14 day holter which is not resulted yet. She does report some ongoing episodes of tachycardia. Pt was tracking her heart rate and it went from 39 to 139 in less than a minute. Will await holter results (she sees cardiology). Will order labs. Denies chest pain, shortness of breath, and dizziness. Pt is on levothyroxine which she started 3 weeks ago. She is seeing [facility] due to multinodular goiter. [facility] Medical History Barretts esophagus Enlarged thyroid MVP (mitral valve prolapse) Fibroadenoma of left breast Renal cyst Hepatic hemangioma Hepatic adenoma Asthma Hemochromatosis Nodular thyroid disease Surgical History H/O thyroidectomy History of tonsillectomy and adenoidectomy History of section Family History Father HTN (hypertension) Type 2 diabetes mellitus High cholesterol Ulcerative colitis Mother Pulmonary embolism Multiple myeloma Maternal Grandmother Diabetes mellitus CVD (cardiovascular disease) Maternal Grandfather CVD (cardiovascular disease) Paternal Grandfather Substance use disorder Paternal Grandmother Uterine cancer Maternal Uncle CVD (cardiovascular disease) Substance use disorder Sister No problems noted. Son No problems noted. Daughter No problems noted. Social History Housing: House Alcohol intake: current Alcohol intake frequency: holidays/special occasions only Patient Tobacco Use Status: Never used Tobacco e-Cigarette/Vaping Use: Never Used Second Hand Smoke Exposure: No service: No Current occupational status: employed Current occupation: [employer] Current occupational exposures/hazards: No Cognitive needs: No Hearing needs: No Vision needs: No Questionnaire Thrive Questionnaire Date Thrive assessed: 01/09/22 ABI-7 AMB Questionnaire ABI-7 Date ABI - 7 assessed: 01/09/22 Source: Developed by Drs. Rosales Rose, Thelma Willams, King Larson and colleagues, with an educational marjorie from [employer]. Review of Systems Const Reports as per HPI Physical exam (Primary Care) Tobacco/Smoking Status: Tobacco use Status Tobacco use date assessed 06/27/23 07/11/23 07:25 Patient Tobacco Use Status Never used Tobacco 07/11/23 07:25 e-Cigarette/Vaping Use Never Used 07/11/23 07:25 Thrive Assessment: Date of Thrive Assessment Date Thrive assessed 01/09/22 07/11/23 07:25 Const General: cooperative Orientation/consciousness: patient oriented x3 Neuro General: patient oriented x3 Psych Appearance: grossly normal Mental Status: mental status grossly normal Speech and movement: Clear speech present Affect: normal affect Attitude: cooperative Thought process: Normal thought process present Thought content: Normal thought content present Insight: Good insight present (Psych) Judgement: Good judgement present (Psych) Telehealth Telehealth Location of provider rendering services: practice address Location of patient: address on file Patient Identification confirmed using: Name, : Yes Telehealth method: video Patient verbally consented to treatment: Yes Patient verbally consented to billing insurance company: Yes Patient informed of any privacy concerns related to visit: Yes Minutes spent on Phone/Video with Pt.: 10 Assessment and Plan Assessment & Plan (1) Tachycardia: Code(s): R00.0 - Tachycardia, unspecified Plan: Labs ordered, awaiting holter results (2) Asthma: Code(s): J45.909 - Unspecified asthma, uncomplicated (3) Nodular thyroid disease: Code(s): E04.1 - Nontoxic single thyroid nodule Plan: pt sees endo, tsh ordered Plan The patient agreed to the use of a outside medical sales representative for this encounter. Scribed for REX Babb-BC by Rubina Carcamo outside medical sales representative, on 07/11/2023 at 07:30 EST. Orders: Orders Complete Blood Count Auto Diff Today R00.0 - Tachycardia, unspecified TSH reflex Free T4 Today R00.0 - Tachycardia, unspecified Comprehensive Met. Panel Today R00.0 - Tachycardia, unspecified UA CC w/rflx Micro + Cult Today R00.0 - Tachycardia, unspecified Coding Level of Care Code Tele Est Pt Level 3 (05352) Diagnoses Tachycardia R00.0 Asthma J45.909 Nodular thyroid disease E04.1
== END 2023-07-11 12:09 | disposition home or self-care (01) ==
LOC: HO.HMGC 08:10
PROVIDERS: PCP Nurse Practitioner Family; Visit Provider Nurse Practitioner Family
DX: R00.0 Tachycardia, unspecified (principal); J45.909 Unspecified asthma, uncomplicated; E04.1 Nontoxic single thyroid nodule
CPT/HCPCS: 99213

== ENCOUNTER 2023-07-11 12:58 | Outpatient (REF) | payer OTHER, SELFPAY ==
[2023-07-11 13:08] LABS: MANUAL DIFF FLAG NO
[2023-07-11 13:53] LABS: Basophils Absolute Auto 0.1 X10*3/uL (0.0-0.2); Basophils Percent Auto 1.2 % (0-2); Eosinophils Absolute Auto 0.1 X10*3/uL (0.0-0.4); Eosinophils Percent Auto 1.9 % (0-4); Hematocrit 38.6 % (37.0-47.0); Hemoglobin 12.3 g/dl (12.0-16.0); Imm Gran Abs Auto 0.02 X10*3/uL (0.00-0.03); Imm Gran Pct Auto 0.4 % (0.0-0.4); Lymphocytes Percent Auto 38.4 % (20-40); Mean Corpuscular HGB Conc 31.9 g/dl (31.0-35.0); Mean Corpuscular Hemoglobin 27.5 pg (27.0-33.0); Mean Corpuscular Volume 86.4 fL (80.0-98.0); Mean Platelet Volume 9.7 fL (9.4-12.3); Monocytes Absolute Auto 0.5 X10*3/uL (0.1-1.2); Monocytes Percent Auto 8.6 % (2-11); Neutrophils Absolute Auto 2.6 x10*3/uL (2.0-8.3); Neutrophils Percent Auto 49.5 % (45-73); Platelet Count 404 X10*3/uL (160-400); Red Blood Count 4.47 X10*6/uL (4.20-5.50); Red Cell Distribution Width 15.2 % (11.0-16.0); White Blood Count 5.2 X10*3/uL (4.8-10.8)
[2023-07-11 13:56] LABS: Appearance Urine Clear; Color Urine Yellow; Glucose Urine UA Negative (Negative); Leukocyte Esterase Urine Negative (Negative); Nitrite Urine Negative (Negative); PH 7.5 (5.0-9.0); Specific Gravity - Urine <= 1.005 (1.005-1.025); Urine Blood Negative (Negative); Urine Ketones Negative (Negative); Urine Protein Negative (Neg-Trace)
[2023-07-11 14:25] LABS: Alanine Aminotransferase 15 U/L (0-31); Albumin Level 4.4 g/dL (3.5-5.0); Alkaline Phosphatase 44 U/L (39-117); Anion Gap 11 (12-20); Aspartate Amino Transferase 16 U/L (5-31); Bilirubin Total 0.3 mg/dL (0.0-1.0); Blood Urea Nitrogen 11 mg/dL (9-16); Calcium 9.1 mg/dL (8.4-10.2); Carbon Dioxide 28 mmol/L (22-29); Chloride 107 mmol/L (96-108); Estimated Glomerular Filt Rate > 60; Glucose Random 105 mg/dL (60-115); Potassium 4.2 mmol/L (3.3-5.1); Sodium 142 mmol/L (135-145); Total Protein 7.2 g/dL (6.5-8.0)
[2023-07-11 14:40] LABS: TSH reflex Free T4 5.05 uIU/mL (0.32-4.0)
[2023-07-11 15:24] LABS: Free T4 (Free Thyroxine) 1.13 ng/dL (0.71-1.85)
== END 2023-07-11 12:59 | disposition home or self-care (01) ==
LOC: HO.LAB 12:58
PROVIDERS: PCP Nurse Practitioner Family; Visit Provider Nurse Practitioner Family
DX: R00.0 Tachycardia, unspecified (principal)
CPT/HCPCS: 36415; 80053; 81003; 84439; 84443; 85025

== ENCOUNTER 2023-08-07 07:47 | Outpatient (AMB) | payer OTHER, SELFPAY ==
--- NOTE | 2023-08-07 07:39 | A.OFFPC_ITS ---
Intake Visit Reasons: 3 week follow up, labs/101-2008 Allergies hydrocodone [HYDROCODONE] Allergy (Intermediate, Verified 08/07/23 10:21) HIVES amoxicillin [Augmentin] Allergy (Unknown, Verified 08/07/23 10:21) unknown chlorhexidine Allergy (Unknown, Verified 08/07/23 10:21) unknown clavulanic acid [Augmentin] Allergy (Unknown, Verified 08/07/23 10:21) unknown doxycycline Allergy (Unknown, Verified 08/07/23 10:21) anaphylaxis ibuprofen [IBUPROFEN] Allergy (Unknown, Verified 08/07/23 10:21) HIVES meperidine [Demerol] Allergy (Unknown, Verified 08/07/23 10:21) unknown morphine [MORPHINE] Allergy (Unknown, Verified 08/07/23 10:21) HIVES prednisone Allergy (Verified 08/07/23 10:21) neuropathy acetaminophen [From PERCOCET] Adverse Reaction (Unknown, Verified 08/07/23 10:21) HIVES oxycodone [From PERCOCET] Adverse Reaction (Unknown, Verified 08/07/23 10:21) HIVES Medication List - Last Reconciled 08/07/23 by REX Briones- acyclovir 400 mg PO BID budesonide-formoterol 160-4.5 mcg/actuation (Symbicort) 2 puffs inhalation BID calcitriol mcg PO epinephrine (Auvi-Q) IM esomeprazole magnesium 40 mg PO DAILY levalbuterol tartrate 45 mcg/actuation 2 inhalations inhalation Q6H levothyroxine 112 mcg PO DAILY lifitegrast 5% (Xiidra) drps ophthalmic (eye) montelukast 10 mg PO DAILY norethindrone acetate 5 mg PO DAILY Tobacco use date assessed: 06/27/23 Dental Screening Dental Screen Date: 06/27/23 HPI 3 week follow up, labs/[id number] HPI Details asthma: symptoms getting better. palpitations: getting better, following up with cardiology, thought to be related to her thyroid (seeing endo), having non sustained SVT. hemochromotosis: Has a pulper tender. Fibroids: going to [facility] for possible ablation. Denies fever, chills, and dizziness. [facility] Medical History Barretts esophagus Enlarged thyroid MVP (mitral valve prolapse) Fibroadenoma of left breast Renal cyst Hepatic hemangioma Hepatic adenoma Asthma Hemochromatosis Nodular thyroid disease Surgical History H/O thyroidectomy History of tonsillectomy and adenoidectomy History of section Family History Father HTN (hypertension) Type 2 diabetes mellitus High cholesterol Ulcerative colitis Mother Pulmonary embolism Multiple myeloma Maternal Grandmother Diabetes mellitus CVD (cardiovascular disease) Maternal Grandfather CVD (cardiovascular disease) Paternal Grandfather Substance use disorder Paternal Grandmother Uterine cancer Maternal Uncle CVD (cardiovascular disease) Substance use disorder Sister No problems noted. Son No problems noted. Daughter No problems noted. Social History Housing: House Alcohol intake: current Alcohol intake frequency: holidays/special occasions only Patient Tobacco Use Status: Never used Tobacco e-Cigarette/Vaping Use: Never Used Second Hand Smoke Exposure: No service: No Current occupational status: employed Current occupation: [employer] Current occupational exposures/hazards: No Cognitive needs: No Hearing needs: No Vision needs: No Questionnaire Thrive Questionnaire Date Thrive assessed: 01/09/22 ABI-7 AMB Questionnaire ABI-7 Date ABI - 7 assessed: 01/09/22 Source: Developed by Drs. Rosales Rose, Thelma Willams, King Larson and colleagues, with an educational marjorie from [employer]. Review of Systems Const Reports as per HPI Physical exam (Primary Care) Tobacco/Smoking Status: Tobacco use Status Tobacco use date assessed 06/27/23 08/07/23 07:40 Patient Tobacco Use Status Never used Tobacco 08/07/23 07:40 e-Cigarette/Vaping Use Never Used 08/07/23 07:40 Thrive Assessment: Date of Thrive Assessment Date Thrive assessed 01/09/22 08/07/23 07:40 Const General: cooperative Orientation/consciousness: patient oriented x3 Neuro General: patient oriented x3 Psych Appearance: grossly normal Mental Status: mental status grossly normal Speech and movement: Clear speech present Affect: normal affect Attitude: cooperative Thought process: Normal thought process present Thought content: Normal thought content present Insight: Good insight present (Psych) Judgement: Good judgement present (Psych) Telehealth Telehealth Location of provider rendering services: practice address Location of patient: address on file Patient Identification confirmed using: Name, : Yes Telehealth method: video Patient verbally consented to treatment: Yes Patient verbally consented to billing insurance company: Yes Patient informed of any privacy concerns related to visit: Yes Minutes spent on Phone/Video with Pt.: 10 Assessment and Plan Assessment & Plan (1) Hemochromatosis: Code(s): E83.119 - Hemochromatosis, unspecified Plan: Seeing hematology (2) Nodular thyroid disease: Code(s): E04.1 - Nontoxic single thyroid nodule Plan: Seeing endo (3) Tachycardia: Code(s): R00.0 - Tachycardia, unspecified Plan: Seeing cardiology (4) Asthma: Code(s): J45.909 - Unspecified asthma, uncomplicated Plan: Better controlled (5) Fibroids: Code(s): D21.9 - Benign neoplasm of connective and other soft tissue, unspecified Plan: Going to [facility] for possible ablation Plan The patient agreed to the use of a medical and health services manager for this encounter. Scribed for ISAIAH Babb by Rubina Carcamo medical and health services manager, on 08/07/2023 at 07:45 EST. Coding Level of Care Code Tele Est Pt Level 3 (49441) Diagnoses Hemochromatosis E83.119 Nodular thyroid disease E04.1 Tachycardia R00.0 Asthma J45.909 Fibroids D21.9
== END 2023-08-07 16:43 | disposition home or self-care (01) ==
LOC: HO.HMGC 07:47
PROVIDERS: PCP Nurse Practitioner Family; Visit Provider Nurse Practitioner Family
DX: E83.119 Hemochromatosis, unspecified (principal); E04.1 Nontoxic single thyroid nodule; R00.0 Tachycardia, unspecified; J45.909 Unspecified asthma, uncomplicated; D21.9 Benign neoplasm of connective and other soft tissue, unspecified
CPT/HCPCS: 99213

== ENCOUNTER 2023-11-04 07:59 | Outpatient (REF) | payer OTHER, SELFPAY ==
[2023-11-04 08:15] LABS: MANUAL DIFF FLAG NO
[2023-11-04 08:53] LABS: Basophils Absolute Auto 0.1 X10*3/uL (0.0-0.2); Basophils Percent Auto 0.9 % (0-2); Eosinophils Absolute Auto 0.1 X10*3/uL (0.0-0.4); Eosinophils Percent Auto 1.9 % (0-4); Hemoglobin 13.3 g/dl (12.0-16.0); Imm Gran Abs Auto 0.01 X10*3/uL (0.00-0.03); Imm Gran Pct Auto 0.2 % (0.0-0.4); Lymphocytes Absolute Auto 1.8 X10*3/uL (1.2-4.9); Lymphocytes Percent Auto 31.6 % (20-40); Mean Corpuscular HGB Conc 33.3 g/dl (31.0-35.0); Mean Corpuscular Hemoglobin 29.4 pg (27.0-33.0); Mean Corpuscular Volume 88.5 fL (80.0-98.0); Mean Platelet Volume 10.1 fL (9.4-12.3); Monocytes Absolute Auto 0.5 X10*3/uL (0.1-1.2); Monocytes Percent Auto 8.9 % (2-11); Neutrophils Absolute Auto 3.3 x10*3/uL (2.0-8.3); Neutrophils Percent Auto 56.5 % (45-73); Platelet Count 343 X10*3/uL (160-400); Red Blood Count 4.52 X10*6/uL (4.20-5.50); Red Cell Distribution Width 15.6 % (11.0-16.0); White Blood Count 5.8 X10*3/uL (4.8-10.8)
[2023-11-04 09:34] LABS: Iron 58 mcg/dL (30-160); Percent Iron Saturation 25 % (15-50); Total Iron Binding Capacity 230 mcg/dL (228-428); Unsaturated Iron Binding 172 ug/dL
[2023-11-04 09:43] LABS: Ferritin 10 ng/mL (10-250); TSH reflex Free T4 1.76 uIU/mL (0.32-4.0)
== END 2023-11-04 08:00 | disposition home or self-care (01) ==
LOC: HO.LAB 07:59
PROVIDERS: PCP Nurse Practitioner Family; Visit Provider Nurse Practitioner Family
DX: R53.83 Other fatigue (principal)
CPT/HCPCS: 36415; 82728; 83540; 84443; 85025

== ENCOUNTER 2024-02-04 16:48 | Outpatient (REF) | payer OTHER, SELFPAY ==
[2024-02-04 16:59] LABS: MANUAL DIFF FLAG NO
[2024-02-04 17:15] LABS: Appearance Urine Clear; Color Urine Yellow; Glucose Urine UA Negative (Negative); Leukocyte Esterase Urine Negative (Negative); Nitrite Urine Negative (Negative); PH 5.5 (5.0-9.0); Specific Gravity - Urine 1.025 (1.005-1.025); Urine Blood Negative (Negative); Urine Ketones Negative (Negative); Urine Protein Negative (Neg-Trace)
[2024-02-04 17:16] LABS: Basophils Absolute Auto 0.1 X10*3/uL (0.0-0.2); Eosinophils Absolute Auto 0.2 X10*3/uL (0.0-0.4); Eosinophils Percent Auto 2.7 % (0-4); Hematocrit 43.1 % (37.0-47.0); Hemoglobin 14.1 g/dl (12.0-16.0); Imm Gran Abs Auto 0.03 X10*3/uL (0.00-0.03); Imm Gran Pct Auto 0.5 % (0.0-0.4); Lymphocytes Absolute Auto 2.2 X10*3/uL (1.2-4.9); Lymphocytes Percent Auto 36.4 % (20-40); Mean Corpuscular HGB Conc 32.7 g/dl (31.0-35.0); Mean Corpuscular Hemoglobin 29.1 pg (27.0-33.0); Mean Platelet Volume 9.5 fL (9.4-12.3); Monocytes Absolute Auto 0.5 X10*3/uL (0.1-1.2); Monocytes Percent Auto 8.1 % (2-11); Neutrophils Percent Auto 51.3 % (45-73); Platelet Count 370 X10*3/uL (160-400); Red Blood Count 4.84 X10*6/uL (4.20-5.50); Red Cell Distribution Width 13.7 % (11.0-16.0); White Blood Count 5.9 X10*3/uL (4.8-10.8)
[2024-02-04 17:54] LABS: Alanine Aminotransferase 28 U/L (0-31); Albumin Level 4.5 g/dL (3.5-5.0); Alkaline Phosphatase 48 U/L (39-117); Anion Gap 12 (12-20); Aspartate Amino Transferase 19 U/L (5-31); Bilirubin Total 0.2 mg/dL (0.0-1.0); Blood Urea Nitrogen 11 mg/dL (9-16); Calcium 9.5 mg/dL (8.4-10.2); Carbon Dioxide 25 mmol/L (22-29); Chloride 108 mmol/L (96-108); Estimated Glomerular Filt Rate > 60; Glucose Random 111 mg/dL (60-115); Potassium 3.9 mmol/L (3.3-5.1); Sodium 141 mmol/L (135-145); Total Protein 7.6 g/dL (6.5-8.0)
[2024-02-04 18:10] LABS: TSH reflex Free T4 2.12 uIU/mL (0.32-4.0)
== END 2024-02-04 16:49 | disposition home or self-care (01) ==
LOC: HO.LAB 16:48
PROVIDERS: PCP Nurse Practitioner Family; Visit Provider Nurse Practitioner Family
DX: Z01.818 Encounter for other preprocedural examination (principal)
CPT/HCPCS: 36415; 80053; 81003; 84443; 85025

== ENCOUNTER → 2024-02-10 15:29 | Outpatient (AMB) | payer OTHER, SELFPAY ==
--- NOTE | 2024-02-10 15:31 | MHC.PC.OV ---
Vital Signs 02/10/24 15:32 Height 5 ft 3 in Weight 154 lb 4 oz BMI 27.3 BP 106/62 Blood Pressure Location Rt brachial Position Sitting Pulse 83 Pulse Source Pulse Oximeter Pulse Oximetry (%) 98 Intake Visit Reasons: Surgical Clearance Intake Note: pt is here for pre-op clearance, repair umbilical hernia, abd pannis and abdplasty with liposuction flanks Allergies hydrocodone [HYDROCODONE] Allergy (Intermediate, Verified 02/10/24 16:41) HIVES amoxicillin [Augmentin] Allergy (Unknown, Verified 02/10/24 16:41) unknown chlorhexidine Allergy (Unknown, Verified 02/10/24 16:41) unknown clavulanic acid [Augmentin] Allergy (Unknown, Verified 02/10/24 16:41) unknown doxycycline Allergy (Unknown, Verified 02/10/24 16:41) anaphylaxis ibuprofen [IBUPROFEN] Allergy (Unknown, Verified 02/10/24 16:41) HIVES meperidine [Demerol] Allergy (Unknown, Verified 02/10/24 16:41) unknown morphine [MORPHINE] Allergy (Unknown, Verified 02/10/24 16:41) HIVES prednisone Allergy (Verified 02/10/24 16:41) neuropathy acetaminophen [From PERCOCET] Adverse Reaction (Unknown, Verified 02/10/24 16:41) HIVES oxycodone [From PERCOCET] Adverse Reaction (Unknown, Verified 02/10/24 16:41) HIVES Medication List - Last Reconciled 02/10/24 by Brett Sharma, FENCE ERECTOR SUPERVISOR- acyclovir 400 mg PO BID budesonide-formoterol 160-4.5 mcg/actuation (Symbicort) 2 puffs inhalation BID calcitriol mcg PO epinephrine (Auvi-Q) IM esomeprazole magnesium 40 mg PO DAILY levalbuterol tartrate 45 mcg/actuation 2 inhalations inhalation Q6H levothyroxine 112 mcg PO DAILY lifitegrast 5% (Xiidra) drps ophthalmic (eye) montelukast 10 mg PO DAILY norethindrone acetate 5 mg PO DAILY Tobacco use date assessed: 06/27/23 Dental Screening Dental Screen Date: 06/27/23 HPI Surgical Clearance HPI Details Pt is here for a pre-op evaluation. She is scheduled to undergo an umbilical hernia repair, abdominal pannus and abdominoplasty with liposuction flanks. Labs were already performed. EKG done in office. Pt is cleared for surgery from my standpoint. [facility] Medical History Barretts esophagus Enlarged thyroid MVP (mitral valve prolapse) Fibroadenoma of left breast Renal cyst Hepatic hemangioma Hepatic adenoma Asthma Hemochromatosis Nodular thyroid disease Surgical History H/O thyroidectomy History of tonsillectomy and adenoidectomy History of section Family History Father HTN (hypertension) Type 2 diabetes mellitus High cholesterol Ulcerative colitis Mother Pulmonary embolism Multiple myeloma Maternal Grandmother Diabetes mellitus CVD (cardiovascular disease) Maternal Grandfather CVD (cardiovascular disease) Paternal Grandfather Substance use disorder Paternal Grandmother Uterine cancer Maternal Uncle CVD (cardiovascular disease) Substance use disorder Sister No problems noted. Son No problems noted. Daughter No problems noted. Social History Housing: House Alcohol intake: current Alcohol intake frequency: holidays/special occasions only Patient Tobacco Use Status: Never used Tobacco e-Cigarette/Vaping Use: Never Used Second Hand Smoke Exposure: No service: No Current occupational status: employed Current occupation: [employer] Current occupational exposures/hazards: No Cognitive needs: No Hearing needs: No Vision needs: No Questionnaire PHQ-9 Over the last 2 weeks, how often have you been bothered by any of the following problems? 1. Little interest or pleasure in doing things: not at all 2. Feeling down, depressed, or hopeless: not at all 3. Trouble falling or staying asleep, or sleeping too much: not at all 4. Feeling tired or having little energy: not at all 5. Poor appetite or overeating: not at all 6. Feeling bad about yourself - or that you are a failure or have let yourself or your family down: not at all 7. Trouble concentrating on things, such as reading the newspaper or watching television: not at all 8. Moving or speaking so slowly that other people could have noticed. Or the opposite - being so fidgety or restless that you have been moving around a lot more than usual: not at all 9. Thoughts that you would be better off or of hurting yourself in some way: not at all Total score: 0 Depression Screening Interpretation: Negative Depression Screening Done: Yes 07290 - PHQ-9 Billing: Yes Source: Developed by Drs. Rosales Rose, Thelma Willams, King Larson and colleagues, with an educational marjorie from [email or web address]. Thrive Questionnaire Date Thrive assessed: 02/10/24 I am a: Patient What is your living situation today?: I have a steady place to live Within the past 12 months, did the food you bought not last and you didn't have the money to get more?: Never true Within the past 12 months, did you worry whether your food would run out before you got money to buy more?: Never true Do you have trouble paying for medicines?: No Do you have trouble getting transportation to medical appointments?: No Do you have trouble paying your heating and electricity bill?: No Do you have trouble taking care of your child, family member or friend?: No Do you have trouble with day-to-day activities such as bathing, preparing meals, shopping, managing finances, etc.?: No Are you currently unemployed and looking for a job?: No Are you interested in more education?: No Please select the resources that you would like help with: None Currently or been in a relationship where the following occur: No concerns reported THRIVE Score: 0 AUDIT C Alcohol Use Questionnaire (AUDIT-C) 1. How often do you have a drink containing alcohol?: 2-4 times a month 2. How many drinks containing alcohol do you have on a typical day when you are drinking?: 1 or 2 3. How often do you have six or more drinks on one occasion?: Never Total Score: 2 Score Reviewed/Action Taken: Yes ABI-7 AMB Questionnaire ABI-7 Date ABI - 7 assessed: 02/10/24 Feeling nervous, anxious, or on edge: 0 = Not at all Not being able to stop or control worryin = Not at all Worrying too much about different things: 0 = Not at all Trouble relaxin = Not at all Being so restless that it is hard to sit still: 0 = Not at all Becoming easily annoyed or irritable: 0 = Not at all Feeling afraid as if something awful might happen: 0 = Not at all Total ABI-7 score (0-4 normal; 5-9 mild; 10-14 moderate; 15-21 severe): 0 Source: Developed by Drs. Rosales Rose, Thelma Willams, King Larson and colleagues, with an educational marjorie from [email or web address]. ABI-7 Assessment Billing ABI-7 Assessment Tool: ABI-7 Assessment 06679 Review of Systems Const Denies chills and Denies fever(s) Eyes Denies blurry vision ENT Denies vertigo, Denies dizziness and Denies sore throat Card Denies chest pain at rest, Denies chest pain with activity, Denies diaphoresis, Denies dyspnea and Denies dyspnea on exertion Resp Denies cough, Denies dyspnea, Denies dyspnea on exertion and Denies wheezing GI Denies abdominal pain, Denies melena, Denies hematochezia, Denies constipation, Denies diarrhea and Denies loose stools Denies hematuria Musc Denies numbness and Denies tingling Skin/Breast Denies lesions Neuro Denies vertigo, Denies dizziness, Denies numbness and Denies tingling Psych Denies anxiety, Denies depression, Denies homicidal ideation, Denies suicidal ideation and Denies other (substance abuse) Aller/Immun Denies wheezing Physical exam (Primary Care) Vital Signs: Last Vital Signs Pulse 83 02/10/24 15:32 BP 106/62 02/10/24 15:32 Pulse Ox 98 02/10/24 15:32 BMI result Body Mass Index 27.3 Tobacco/Smoking Status: Tobacco use Status Tobacco use date assessed 06/27/23 02/10/24 15:33 Patient Tobacco Use Status Never used Tobacco 02/10/24 15:33 e-Cigarette/Vaping Use Never Used 02/10/24 15:33 PHQ-9: PHQ-9 Score PHQ-9: Total score 0 02/10/24 16:44 Depression Screening Interpretation: Negative Thrive Assessment: Date of Thrive Assessment Date Thrive assessed 02/10/24 02/10/24 15:33 Currently or been in a relationship where the following occur: No concerns reported Const General: cooperative Nutritional Appearance: well nourished Orientation/consciousness: patient oriented x3 Neck Neck: Yes no lymphadenopathy Resp Effort & Inspection: normal respiratory effort Auscultation: clear to auscultation bilaterally Cardio Rate: regular rate Rhythm: regular rhythm Heart sounds: S1 normal heart sound present, S2 normal heart sound present and no murmurs Neuro General: patient oriented x3 Psych Appearance: grossly normal Mental Status: mental status grossly normal Speech and movement: Normal speech and movement present Affect: normal affect Attitude: cooperative Thought process: Normal thought process present Thought content: Normal thought content present Insight: Good insight present (Psych) Judgement: Good judgement present (Psych) Coding Level of Care Code Est Pt Prev Care 40-64y(03540) Diagnoses Pre-op evaluation Z01.818 Additional Codes ABI-7 Assessment Billing - ABI-7 Assessment Tool: ABI-7 Assessment 19216 ([id number]) Assessment & Plan Assessment & Plan (1) Pre-op evaluation: Code(s): Z01.818 - Encounter for other preprocedural examination Category: Medical Plan The patient agreed to the use of a medical administrative for this encounter. Scribed for ISAIAH Babb by Rubina Carcamo medical administrative, on 02/10/2024 at 15:55 EST.
[2024-02-10 15:32] VITALS: BP 106/62; PULSE 83; O2SAT 98; BMI 27.3
== END ==
PROVIDERS: PCP Nurse Practitioner Family; Visit Provider Nurse Practitioner Family
DX: Z01.818 Encounter for other preprocedural examination (principal)

== ENCOUNTER → 2024-02-10 15:29 | Outpatient (BNVA) | payer OTHER, SELFPAY | PROVIDERS: PCP Nurse Practitioner Family; Visit Provider Nurse Practitioner Family | DX: Z01.818 Encounter for other preprocedural examination (principal); K42.9 Umbilical hernia without obstruction or gangrene | CPT/HCPCS: 96127 ==

== ENCOUNTER 2024-07-23 10:20 | Outpatient (AMB) | payer OTHER, SELFPAY ==
[2024-07-23 10:23] VITALS: BP 106/70; PULSE 82; O2SAT 97; BMI 25.5
--- NOTE | 2024-07-23 10:23 | A.OFFPC_ITS ---
Vital Signs 07/23/24 10:23 Height 5 ft 3 in Weight 144 lb BMI 25.5 BP 106/70 Blood Pressure Location Lt brachial Position Sitting Pulse 82 Pulse Source Pulse Oximeter Pulse Oximetry (%) 97 Oxygen Delivery Method Room Air Intake Visit Reasons: PE Intake Note: pt is here for PE today Local Truck Driver Required: No Accompanied by: Self / Same As Patient Allergies hydrocodone [HYDROCODONE] Allergy (Intermediate, Verified 07/23/24 10:23) HIVES amoxicillin [Augmentin] Allergy (Unknown, Verified 07/23/24 10:23) unknown chlorhexidine Allergy (Unknown, Verified 07/23/24 10:23) unknown clavulanic acid [Augmentin] Allergy (Unknown, Verified 07/23/24 10:23) unknown doxycycline Allergy (Unknown, Verified 07/23/24 10:23) anaphylaxis ibuprofen [IBUPROFEN] Allergy (Unknown, Verified 07/23/24 10:23) HIVES meperidine [Demerol] Allergy (Unknown, Verified 07/23/24 10:23) unknown morphine [MORPHINE] Allergy (Unknown, Verified 07/23/24 10:23) HIVES prednisone Allergy (Verified 07/23/24 10:23) neuropathy acetaminophen [From PERCOCET] Adverse Reaction (Unknown, Verified 07/23/24 10:23) HIVES oxycodone [From PERCOCET] Adverse Reaction (Unknown, Verified 07/23/24 10:23) HIVES Medication List - Last Reconciled 07/23/24 by Brett Sharma, SUPERVISOR [employer]- acyclovir 400 mg PO BID budesonide-formoterol 160-4.5 mcg/actuation (Symbicort) 2 puffs inhalation BID epinephrine (Auvi-Q) IM esomeprazole magnesium 40 mg PO DAILY levalbuterol tartrate 45 mcg/actuation 2 inhalations inhalation Q6H levothyroxine 125 mcg PO DAILY lifitegrast 5% (Xiidra) drps ophthalmic (eye) montelukast 10 mg PO DAILY Tobacco use date assessed: 07/23/24 Dental Screening Dental Screen Date: 07/23/24 Did you have a dental visit in the last 12 months?: Yes Did you have a dental problem in the last 6 months where you did not have access to dental care?: No Was dental information given to patient?: Patient has dentist HPI PE HPI Details History of Present Illness The patient is a 48-year-old female presenting with cervical neck pain, lower back pain, and numbness of the right foot. Following a bout of influenza, she developed neck pain localized to the left side two weeks prior while sleeping in a recliner. The patient reports a negative Spurling's test and minimal discomfort with neck movements. She also mentions numbness in her right foot, especially post-running, alongside slightly sore lower back pain. Notably, symptoms of cervical radiculopathy and cauda equina syndrome are denied, and her straight leg raise test is negative with positive patellar reflexes. Health Maintenance - Current mammogram is up to date. - Regular gynecological exams are conduc vera for Pap smears. - Plan to evaluate MMR vaccination statu s to assess immune competency. 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 - Engages in running as an exercise rout ine. Review of Systems - Neurological: Reports numbness in the right foot post-running. - Musculoskeletal: Denies cervical radic ulopathy symptoms. Denies symptoms suggestive of cauda equina syndrome. Physical Exam General: Cooperative, healthy appearing, comfortable, no acute distress and well developed Orientation: Patient oriented x3 Limitations: No limitations Head: Normal to inspection Ears: Hearing grossly normal bilaterally Nose: Normal external nose present Face and sinus: Normal facial exam Eyes: Appearance normal, both eyes and all related structures Neck: Stiff neck with cervical neck pain, especially on the left side. Negative Spurling's test. Full ROM with minimal discomfort on neck flexion. Respiratory: Normal respiratory effort and able to speak in complete sentences. Clear to auscultation bilaterally Cardiovascular: Regular rate and rhythm. Normal S1 and S2, very faint systolic murmur GI: Normal to inspection. Soft to palpation and nontender Skin: No rashes or lesions noted Neuro: Patient oriented x3. Positive patellar reflexes. Extremities: Normal to inspection. Slightly sore lower back. Negative straight leg raises. Results Plan I plan to conduct X-rays of the cervical and lumbar spine and refer the patient to physical therapy for her neck and lower back pain. 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 Discussion Notes During the consultation, I discussed the likely causes of the patient's cervical neck pain, lower back pain, and foot numbness. Diagnostic imaging in the form of X-rays has been recommended to further evaluate these complaints. I advised referring her to physical therapy to help alleviate her symptoms through targeted exercises. Additionally, an MMR titer was suggested to assess her immune status for occupational health reasons. We discussed the need for ongoing follow-up to monitor her progress and any recurrence of symptoms. Consent for the proposed diagnostic and therapeutic interventions was obtained. Patient Instructions - Undergo recommended X-rays of the cerv ical and lumbar spine. - Attend physical therapy sessions as pr escribed. - Follow up for MMR titers for immune st atus assessment. - Report any worsening symptoms or new d evelopments promptly to the clinic. [facility] Medical History Barretts esophagus Enlarged thyroid MVP (mitral valve prolapse) Fibroadenoma of left breast Renal cyst Hepatic hemangioma Hepatic adenoma Asthma Hemochromatosis Nodular thyroid disease Surgical History H/O thyroidectomy History of tonsillectomy and adenoidectomy History of section Family History Father HTN (hypertension) Type 2 diabetes mellitus High cholesterol Ulcerative colitis Mother Pulmonary embolism Multiple myeloma Maternal Grandmother Diabetes mellitus CVD (cardiovascular disease) Maternal Grandfather CVD (cardiovascular disease) Paternal Grandfather Substance use disorder Paternal Grandmother Uterine cancer Maternal Uncle CVD (cardiovascular disease) Substance use disorder Sister No problems noted. Son No problems noted. Daughter No problems noted. Social History Housing: House Alcohol intake: current Alcohol intake frequency: holidays/special occasions only Patient Tobacco Use Status: Never used Tobacco e-Cigarette/Vaping Use: Never Used Second Hand Smoke Exposure: No service: No Current occupational status: employed Current occupation: [employer] Current occupational exposures/hazards: No Cognitive needs: No Hearing needs: No Vision needs: No Questionnaire PHQ-9 Over the last 2 weeks, how often have you been bothered by any of the following problems? 1. Little interest or pleasure in doing things: not at all 2. Feeling down, depressed, or hopeless: not at all 3. Trouble falling or staying asleep, or sleeping too much: not at all 4. Feeling tired or having little energy: several days 5. Poor appetite or overeating: not at all 6. Feeling bad about yourself - or that you are a failure or have let yourself or your family down: not at all 7. Trouble concentrating on things, such as reading the newspaper or watching television: not at all 8. Moving or speaking so slowly that other people could have noticed. Or the opposite - being so fidgety or restless that you have been moving around a lot more than usual: not at all 9. Thoughts that you would be better off or of hurting yourself in some way: not at all Total score: 1 Depression Screening Interpretation: Negative Depression Screening Done: Yes 45133 - PHQ-9 Billing: Yes Source: Developed by Drs. Rosales Rose, Thelma Willams, King Larson and colleagues, with an educational marjorie from [employer]. Thrive Questionnaire Date Thrive assessed: 07/23/24 I am a: Patient What is your living situation today?: I have a steady place to live Within the past 12 months, did the food you bought not last and you didn't have the money to get more?: Never true Within the past 12 months, did you worry whether your food would run out before you got money to buy more?: Never true Do you have trouble paying for medicines?: No Do you have trouble getting transportation to medical appointments?: No Do you have trouble paying your heating and electricity bill?: No Do you have trouble taking care of your child, family member or friend?: No Do you have trouble with day-to-day activities such as bathing, preparing meals, shopping, managing finances, etc.?: No Are you currently unemployed and looking for a job?: No Are you interested in more education?: No Please select the resources that you would like help with: None Currently or been in a relationship where the following occur: No concerns reported THRIVE Score: 0 AUDIT C Alcohol Use Questionnaire (AUDIT-C) 1. How often do you have a drink containing alcohol?: 2-4 times a month 2. How many drinks containing alcohol do you have on a typical day when you are drinking?: 1 or 2 3. How often do you have six or more drinks on one occasion?: Never Total Score: 2 Score Reviewed/Action Taken: Yes ABI-7 AMB Questionnaire ABI-7 Date ABI - 7 assessed: 07/23/24 Feeling nervous, anxious, or on edge: 0 = Not at all Not being able to stop or control worryin = Not at all Worrying too much about different things: 0 = Not at all Trouble relaxin = Not at all Being so restless that it is hard to sit still: 0 = Not at all Becoming easily annoyed or irritable: 0 = Not at all Feeling afraid as if something awful might happen: 0 = Not at all Total ABI-7 score (0-4 normal; 5-9 mild; 10-14 moderate; 15-21 severe): 0 Source: Developed by Drs. Rosales Rose, Thelma Willams, King Larson and colleagues, with an educational marjorie from [employer]. ABI-7 Assessment Billing ABI-7 Assessment Tool: BAI-7 Assessment 35270 Physical exam (Primary Care) Vital Signs: Last Vital Signs Pulse 82 07/23/24 10:23 BP 106/70 07/23/24 10:23 Pulse Ox 97 07/23/24 10:23 Oxygen Delivery Method Room Air 07/23/24 10:23 BMI result Body Mass Index 25.5 Tobacco/Smoking Status: Tobacco use Status Tobacco use date assessed 07/23/24 07/23/24 10:24 Patient Tobacco Use Status Never used Tobacco 07/23/24 10:24 e-Cigarette/Vaping Use Never Used 07/23/24 10:24 PHQ-9: PHQ-9 Score PHQ-9: Total score 1 07/23/24 10:24 Depression Screening Interpretation: Negative Thrive Assessment: Date of Thrive Assessment Date Thrive assessed 07/23/24 07/23/24 10:24 Currently or been in a relationship where the following occur: No concerns reported Coding Level of Care Code Est Pt Prev Care 40-64y(54727) Diagnoses Immunizations incomplete Z28.39 Physical exam Z00.00 Lower back pain M54.50 Cervical pain (neck) M54.2 Additional Codes ABI-7 Assessment Billing - ABI-7 Assessment Tool: ABI-7 Assessment 39224 ([id number]) PHQ-9 - 60044 - PHQ-9 Billing: Yes ([id number]) Assessment & Plan Assessment & Plan (1) Immunizations incomplete: Code(s): Z28.39 - Other underimmunization status Category: Medical (2) Physical exam: Code(s): Z00.00 - Encounter for general adult medical examination without abnormal findi ngs Category: Medical (3) Lower back pain: Comment: with radiculopathy Code(s): M54.50 - Low back pain, unspecified Category: Medical (4) Cervical pain (neck): Code(s): M54.2 - Cervicalgia Category: Medical Plan . Orders: Orders MMR IgG Measles Mumps Rubella Today Z28.39 - Other underimmunization status Comprehensive [place]. Panel Fast Today Z00.00 - Encounter for general adult medical examination without abnormal findings PT Evaluation and Treatment Today M54.2 - Cervicalgia Complete Blood Count Auto Diff Today Z00.00 - Encounter for general adult medical examination without abnormal findings TSH reflex Free T4 Today Z00.00 - Encounter for general adult medical examination without abnormal findings UA CC w/rflx Micro + Cult Today Z00.00 - Encounter for general adult medical examination without abnormal findings Lipid Panel Today Z00.00 - Encounter for general adult medical examination without abnormal findings Vitamin D 25-OH Total Today Z00.00 - Encounter for general adult medical ex amination without abnormal findings XR lumbar spine 2-3V Today M54.50 - Low back pain, unspecified PT Evaluation and Treatment Today M54.50 - Low back pain, unspecified XR cervical spine 2V Today M54.2 - Cervicalgia
--- OUTSIDE RECORDS SUMMARY | 2024-07-23 11:15 | XMS_ITS | Patient Health Record ---
Author Organization [facility] Address [address] [place] [address] Care Team Providers Care Associate Producer Name Role Phone Rylee Dnag Primary Care Provider Raúl Turner Jr Unavailable Allergies Allergen (clinical drug ingredient) Drug/Non Drug Allergy documented on EMR Reaction Allergy Type Onset Date Status prednisone Prednisone neuropathy Drug Allergy Acti ve Latex Gloves Unknown Drug Allergy Acti ve meperidine Demerol (uncoded) Unknown Allergy A ctive Vicodin (uncoded) Unknown Allergy Ac tive acetaminophen / oxycodone Percocet (uncoded) Unknown Allergy Active Reason For Referral No Information Medications Medication SIG (Take, Route, Frequency, Duration) Notes Start Date End Date Status Ventolin HFA 108 (90 Base) MCG/ACT 2 puffs as needed Inhalation every 6 hrs/prn Active Pantoprazole Sodium 40 MG TAKE 1 TABLET BY MOUTH EVERY DAY FOR 30 DAYS for 90 Active Xiidra 5 % INSTILL 1 DROP INTO BOTH EYES TWICE A DAY Ophthalmic for 30 Active Symbicort 160-4.5 MCG/ACT 2 puffs Inhala tion Twice a day Active Esomeprazole Magnesium 40 MG TAKE 1 CAPS ULE BY MOUTH EVERY DAY for 90 Active Levothyroxine Sodium 125 MCG Oral for 90 Active Calcitriol 0.25 MCG Oral for 90 Active Immunizations Vaccine Route Administration Date Status Comme nts Influenza Unknown 02/04/2018 Administered Influenza Unknown 11/20/2018 Administered Influenza Unknown 01/27/2020 Administered Influenza Unknown 05/10/2021 Administered Problems Problem Type SNOMED Code ICD Code Onset Dates Problem Status W/U Status Risk Notes Problem 797377832 Colon cancer screening (Z12.11) Active confirmed Problem 666332667 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 Problem Dysphagia (31745119) Dysphagia (R13.10) Active confirmed Problem Gastroesophageal reflux disease (363163838) Gastroesophageal reflux disease (K21.9) Active confirmed Problem 609525346 Elevated liver function tests (R79.89) Active confirmed Problem 78470184 Dysphagia, unspecified type (R13.10) Active confirmed Problem 82302069 Hepatic hemangio ma (D18.03) Active confirmed Problem 538405865 Elevated liver function tests (R94.5) Active confirmed Problem 615365939 Gastroesophageal reflux disease, unspecified whether esophagitis present (K21.9) Active confirmed Vital Signs Blood pressure diastolic 00 mm Hg 11/28/2023 Height 62.50 in 11/28/2023 Blood pressure systolic 00 mm Hg 11/28/2023 Weight 144 lbs 11/28/2023 BMI 25.92 kg/m2 11/28/2023 Encounters Encounter Location Date Provider Diagnosis [facility] [address] [place] [phone] 11/28/2023 Raúl Pike Jr Hepatic hemangioma D18.03 ; Gastroesophageal reflux disease, unspecified whether esophagitis present K21.9 and 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 K22.70 [facility] [address] [place] [phone] 08/16/2023 Raúl Pike Jr [facility] [address] [place] [phone] 12/31/2023 Raúl Pike Jr [facility] [address] [place] [phone] 01/02/2024 aRúl Pike Jr Assessments Encounter Date Diagnosis (ICD Code) Assessment Notes Treatment Notes Treatment Clinical Notes Section Notes 11/28/2023 Hepatic hemangioma (ICD-10 - D18.03) Currently she appears to be stable. We discussed the endoscopic findings. She will have followup endoscopy in august of 2024. She understands risks and benefits and agrees to proceed. Imaging of her hepatic hemangioma will be obtained. Followup will be in one year pending these results. 11/28/2023 Gastroesophageal reflux disease, unspecified whether esophagitis present (ICD-10 - K21.9) Currently she appears to be stable. We discussed the endoscopic findings. She will have followup endoscopy in august of 2024. She understands risks and benefits and agrees to proceed. Imaging of her hepatic hemangioma will be obtained. Followup will be in one year pending these results. 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 We discussed the endoscopic findings. She will have followup endoscopy in august of 2024. She understands risks and benefits and agrees to proceed. Imaging of her hepatic hemangioma will be obtained. Followup will be in one year pending these results. Plan Of Treatment Pending Test Test Name Order Date LIVER PROFILE 01/13/2018 MRI ABD W&WO CONTRAST 05/07/2018 US ABD 11/28/2023 Future Test Test Name Order Date UPPER GI ENDOSCOPY 06/21/2022 COLONOSCOPY 06/21/2022 UPPER GI ENDOSCOPY 11/28/2023 Next Appt Details Provider Name:Raúl arteaga , 09/08/2024 08:20:00 AM, [address] [place] [address], [id number], Insurance Providers Payer Name Payer Address Payer Phone Subscriber Number Group Number Insured Name Patient Relationship to Insured Coverage Start Date Coverage End Date [facility] [address] [place], [place] [id number] ONDINA WINN Self - patient is the insured Medical (General) History Medical History History ICD Code Asthma hemochromatosis, Dr. Arturo Lawrence [facility] [place] valve prolapse Hepatic hemangioma Elevated liver function tests Thyroid cancer Colonoscopy 09/11, normal including biops ies, ten-year followup Gastroesophageal reflux dise ase/Gamino's esophagus, upper endoscopy 09/11 intestinal metaplasia at the EG junction. 2 year followup Surgical History Surgery Date(Month/Year) dental implant tonsillectomy and adenoidectomy section thyroid cancer /thyroid removed and part ial parathyroid removed Fibroid ablation
--- OUTSIDE RECORDS SUMMARY | 2024-07-23 11:15 | XMS_ITS | Encounter Summary ---
Author Organization [facility] Address [address] [place] [address] Care Team Providers Care Senior Game Developer Name Role Phone Brett Sharma MD Primary Care Provider + [phone] Encounter Details Date Type Department Care Team (Late st Contact Info) Description 03/04/2024 Scanned Document [facility] Plastic & Reconstructive Surgery [address] [phone] Michael Long MD [address] [place] [address] Social History Tobacco Use Types Packs/Day Years Used Date Smoking Tobacco: Never Smokeless Tobacco: Never Alcohol Use Standard Drinks/Week Comments Yes 0 (1 standard drink = 0.6 oz pur e alcohol) occ AUDIT-C Answer Date Recorded Q1: How often do you have a drink containing alc ohol? Monthly or less 02/20/2024 Q2: How many drinks containi ng alcohol do you have on a typical day when you are drinking? 1 or 2 02/20/2024 Q3: How often do you have si x or more drinks on one occasion? Never 02/20/2024 Sex and Gender Information Value Date Recorded Sex Assigned at Female 03/03/2024 11:57 AM EST Gender Identity Female 03/03/2024 11:57 AM EST Sexual Orientation Heterosexual (straight) 03/03 11:57 AM EST documented as of this encounter Plan of Treatment Upcoming Encounters Date Type Department Care Team (Late st Contact Info) Description 03/04/2025 9:00 AM EST Office Visit [facility] Plastic & Reconstructive Surgery [address] [place] [address] Michael Long MD [address] [facility] [address] [place] [address] documented as of this encounter Visit Diagnoses Not on filedocumented in this encounter Care Teams Senior Game Developer Relationship Specialty Start Date End Date Brett Sharma MD [address] [place] [address] PCP - General Family Medicine 03/03/24 documented as of this encounter
--- OUTSIDE RECORDS SUMMARY | 2024-07-23 11:15 | XMS_ITS | Clinical Summary ---
Author Organization [facility] Address [address] [place] [address] Care Team Providers Care Strike Out Machine Operator Name Role Phone Brett Sharma Primary Care Provider [phone] Allergies Active Allergy Reactions Criticality Noted Date Comments Amoxicillin-Pot Clavulanate Anaphylaxis High 10/19/2013 Cinnamon 12/31/2023 Doxycycline Anaphylaxis High 05/03/2017 Hydrocodone-Acetaminoph en Swelling 05/03/2017 Ibuprofen Anaphylaxis High 12/31/2023 Latex Rash Low 05/21/2019 Meperidine Swelling 05/03/2017 Morphine 09/12/2021 Other Rash Low 04/04/2017 turnips Oxycodone-Acetaminophen Rash,Swelling Low 8 Prednisone Other (See Comments) Medium 08/28/2022 [place] Hives Medium 04/04/2017 Tramadol Itching Low 09/12/2023 Itchy throat Itchy throat Valacyclovir Other (See Comments) Medium 08/28/2022 Medications Medication Sig Dispensed Refills Start Date End Date Status albuterol 108 (90 Base) MCG/ACT inhaler Inhale 2 puffs into the lungs every 6 (six) hours as needed. 0 06/23/2019 Active Symbicort 160-4.5 MCG/ACT inhaler 2 (two) times a day. 0 08/18/2021 Active Xiidra 5 % SOLN Place 1 drop into both eyes 2 (two) times a day. 0 08/23/2021 Active omeprazole (PriLOSEC) 20 MG capsule Take 1 capsule (20 mg total) by mouth daily. 0 08/09/2022 Active calcitRIOL (ROCALTROL) capsule 0.25 mcg TAKE 1 CAPSULE (0.25 MCG TOTAL) BY MOUTH TWICE A DAY 0 02/25/2023 Active levothyroxine (SYNTHROID) tablet 100 mcg TAKE 1 TABLET BY MOUTH EVERY DAY IN THE MORNING 0 02/12/2023 Active celecoxib (CeleBREX) 100 MG capsule TAKE 1 CAPSULE BY MOUTH EVERY DAY. BRING FOR CHALLENGE 0 09/24/2023 Active Auvi-Q 0.3 MG/0.3ML SOAJ INJECT NEEDED FOR SEVERE ALLERGIC REACTION INCLUDING ANAPHYLAXIS DIRECTED AND THEN CALL [phone] 12/16/2023 Active levalbuterol (XOPENEX HFA) 45 MCG/ACT inhaler Inhale 2 puffs into the lungs every 4 (four) hours as needed. 0 06/20/2023 Active acyclovir (ZOVIRAX) 200 MG capsuleIndications :History of herpes genitalis Take 2 capsules (400 mg total) by mouth 2 (two) times a day. 120 capsule 11 12/31/2023 Active norethindrone (AYGESTIN) 5 MG tabletIndications: Abnormal uterine bleeding Take 1 tablet (5 mg total) by mouth daily. 90 tablet 3 12/31/2023 Active Active Problems Problem Noted Date Diagnosed Date Abnormal uterine bleeding 05/02/2022 Immunizations Name Administration Dates Next Due Covid-19 (Moderna 12+) 100mcg/0.5mL dosage 05/27,04/29/2020 Family History Medical History Relation Name Comments Diabetes Father Breast cancer Maternal Aunt Diabetes Maternal Grandmother Multiple myeloma Mother Berry syndrome Sister mosaic; has aortic stenosis Colon cancer Neg Hx Ovarian cancer Neg Hx Uterine cancer Neg Hx Relation Name Status Comments Father Maternal Aunt Maternal Grandmother Mother Sister Social History Tobacco Use Types Packs/Day Years Used Date Smoking Tobacco: Never Smokeless Tobacco: Never Tobacco Cessation:Counseling Given: Not Answered Alcohol Use Standard Drinks/Week Comments Yes 0 (1 standard drink = 0.6 oz pur e alcohol) occasional Sex and Gender Information Value Date Recorded Sex Assigned at Female 09/11/2021 11:28 PM EDT Gender Identity Not on file Sexual Orientation Not on file Job Start Date Occupation Industry Not on file Not on file Not on file Last Filed Vital Signs Vital Sign Reading Time Taken Comments Blood Pressure 103/67 12/31/2023 4:21 PM EDT Pulse 87 04/18/2022 11:10 AM EST Temperature 36.9 ??C (98.5 ??F) 09/12/2021 6:42 AM ED T Respiratory Rate 18 09/12/2021 6:42 AM EDT Oxygen Saturation 97% 09/12/2021 6:42 AM EDT Inhaled Oxygen Concentration - - Weight 68 kg (150 lb) 12/31/2023 4:21 PM EDT Height 162.6 cm (5' 4 ) 12/31/2023 4:21 PM EDT Body Mass Index 25.75 12/31/2023 4:21 PM EDT Plan of Treatment Health Maintenance Due Date Last Done Comments Hepatitis B Vaccines (1 of 3 - 3-dose series) 1975 Depression Screening 1988 DTap / Tdap / Td (1 - Tdap) 09/14/1995 Colon Cancer Screening (Colonoscopy) 2021 BMI Counseling 04/10/2023 04/10/2022, 12/22, 10/04/2021 COVID-19 Vaccine ( season) 2023 01/27/2023, 05/27/2020, 04/29/2020 Preventative Health Evaluation 12/30/2024 12/31/2023, 10/17/2022 Cervical Cancer Screening (Pap Smear) 12/30/2026 12/31/2023 Pneumococcal Vaccine Aged Out 01/06/2021, 11/04/19 21 No longer eligible based on patient's age to complete this topic Hepatitis C Screening Completed 10/17/2022 Influenza Vaccine Completed 12/16/2023, , 02/19/2022, Additional history exists RSV Ped < 20 months Aged Out No longe r eligible based on patient's age to complete this topic Care Teams Strike Out Machine Operator Relationship Specialty Start Date End Date Brett Sharma [address] [facility] [place] [address] PCP - General Family Medicine 09/11/21
--- OUTSIDE RECORDS SUMMARY | 2024-07-23 11:15 | XMS_ITS | Encounter Summary ---
Author Organization [facility] Address [address] [place] [address] Care Team Providers Care Cattle Brander Name Role Phone Brett Sharma MD Primary Care Provider + [phone] Encounter Details Date Type Department Care Team (Late st Contact Info) Description 03/04/[address] [facility] Plastic & Reconstructive Surgery [address] [phone] Michael Long MD [address] [place] [address] Social History Tobacco Use Types Packs/Day Years [...] Description 03/04/2025 9:00 AM EST Office Visit [facility] Plastic & Reconstructive Surgery [address] [place] [address] Michael Long MD 399 [facility] [address] [place] [address] documented as of this encounter Visit Diagnoses Not on filedocumented in this encounter Care Teams Cattle Brander Relationship Specialty Start Date End Date Brett Sharma MD [address] [place] [address] PCP - General Family Medicine 03/03/24 documented as of this encounter
--- OUTSIDE RECORDS SUMMARY | 2024-07-23 11:15 | XMS_ITS ---
Author Organization [facility] Address [address] [place] [address] Care Team Providers Care Field Kiln Burner Name Role Phone Rylee Dang Primary Care Provider Raúl Turner Jr Unavailable Allergies Allergen (clinical drug ingredient) Drug/Non Drug Allergy documented on EMR Reaction Allergy Type Onset Date Status prednisone Prednisone neuropathy Drug Allergy Acti ve Latex Gloves Unknown Drug Allergy Acti ve meperidine Demerol (uncoded) Unknown Allergy A ctive Vicodin (uncoded) Unknown Allergy Ac tive acetaminophen / oxycodone Percocet (uncoded) Unknown Allergy Active REASON FOR VISIT Patient presents today for a hepatic hemangioma Medications Medication SIG (Take, Route, Frequency, Duration) Notes Start Date End Date Status Ventolin HFA 108 (90 Base) MCG/ACT 2 puffs as needed Inhalation every 6 hrs/prn Active Xiidra 5 % INSTILL 1 DROP INTO BOTH EYES TWICE A DAY Ophthalmic for 30 Active Symbicort 160-4.5 MCG/ACT 2 puffs Inhala tion Twice a day Active Calcitriol 0.25 MCG Oral for 90 Active Esomeprazole Magnesium 40 MG TAKE 1 CAPS ULE BY MOUTH EVERY DAY FOR 30 DAYS for 90 Active Levothyroxine Sodium 125 MCG Oral for 90 Active Problems Problem Type SNOMED Code ICD Code Onset Dates Problem Status W/U Status Risk Notes Problem [id number] 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 Vital Signs Blood pressure systolic 00 mm Hg 11/28/19 24 Blood pressure diastolic 00 mm Hg 024 Height 62.50 in 11/28/2023 Weight 144 lbs 11/28/2023 BMI 25.92 kg/m2 11/28/2023 Encounters Encounter Location Date Provider Diagnosis [facility] [address] [facility] [address] [place] [address] 11/28/2023 Raúl Pike Jr Hepatic hemangioma D18.03 ; Gastroesophageal reflux disease, unspecified whether esophagitis present K21.9 and 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 K22.70 Assessments Encounter Date Diagnosis (ICD Code) Assessment [...] Treatment Pending Test Test Name Order Date US ABD 11/28/2023 Future Test Test Name Order Date UPPER GI ENDOSCOPY 11/28/2023 Next Appt Details Follow Up: 1 Year, Reason: Provider Name:Raúl arteaga Jr, 09/08/2024 08:20:00 AM, [address] [facility] , [place], [place], [id number], Progress Notes * JULIENNE WINNSANJUB:1975 ( 48 yo F)Acc No.[id number]:11/28/2023 Progress Notes Patient:?ONDINA WINN Provider:?Raúl Pike MD :1975???Age:48 Y???Sex:Female D ate:11/28/2023 Address:[address], [place] Pcp:Rylee Dang Subjective: * Chief Complaints: * ???1. Patient presents today for a hepatic hemangioma. * HPI: ???New symptom(s):? The patient is a pleasant 48-year-old woman seen today in followup of Gamino's esophagus/reflux disease and hepatic hemangioma. Previous endoscopy in august of 2022 done for dysphagia and colon cancer screening showed an irregular EG junction which was biopsied. Focal intestinal metaplasia was identified consistent with Gamino's esophagus. We reviewed this today. Other biopsy showed no H. pylori or celiac disease. She underwent colonoscopy at the same time, which was normal, including biopsies. We reviewed this today. Since we saw her last she's had thyroid cancer with a thyroidectomy at [facility]. She continues on esomeprazole for her reflux. She takes occasional TUMS for breakthrough symptoms. She has no dysphagia, hematemesis, or melena. Weight and appetite have been stable. She remains asymptomatic from her hepatic hemangioma. * Medical History:?Asthma, hem ochromatosis, Dr. Arturo Lawrence [facility], Mitral valve prolapse, Hepatic hemangioma, Elevated liver function tests, Thyroid cancer, Colonoscopy 09/11, normal including biopsies, ten-year followup, Gastroesophageal reflux disease/Gamino's esophagus, upper endoscopy 09/11 intestinal metaplasia at the EG junction. 2 year followup. * Surgical History:?dental imp lant , tonsillectomy and adenoidectomy , section , thyroid cancer /thyroid removed and partial parathyroid removed , Fibroid ablation . * Family History:?Father: art harper, Ulcerative colitis, diagnosed with Diabetes.?Mother: alive, mulitple Myleoma, diagnosed with HTN (hypertension).?Siblings: alive, cobos syndrome.? denies family hx of colon cancer, colon polyps, liver ds. * Social History:?Tobacco Use:?Tobacco Use/Smoking?Are you a: nonsmoker.?Drugs/Alcohol:?Alcohol Screen?Points: 1, Interpretation: Negative.? * Medications:?Taking Ventolin HFA 108 (90 Base) MCG/ACT Aerosol Solution 2 puffs as needed Inhalation every 6 hrs/prn, Taking Symbicort 160-4.5 MCG/ACT Aerosol 2 puffs Inhalation Twice a day, Taking Xiidra 5 % Solution INSTILL 1 DROP INTO BOTH EYES TWICE A DAY Ophthalmic , Taking Levothyroxine Sodium 125 MCG Tablet Oral , Taking Esomeprazole Magnesium 40 MG Capsule Delayed Release TAKE 1 CAPSULE BY MOUTH EVERY DAY FOR 30 DAYS , Taking Calcitriol 0.25 MCG Capsule Oral , Discontinued Pantoprazole Sodium 40 MG Tablet Delayed Release TAKE 1 TABLET BY MOUTH EVERY DAY FOR 30 DAYS , Medication List reviewed and reconciled with the patient * Allergies:?Percocet, Vicodin , Demerol, Latex Gloves, Prednisone: neuropathy. Objective: * Vitals:?Wt: 144 lbs, Ht: 62. 50 in, BMI:25.92 Index, BP: 00/00 mm Hg. * Examination: ???General Examination: ???On examination today, she appears well. Skin is anicteric. Lungs are clear. Heart shows a regular rate and rhythm. Abdomen is soft no focal masses or tenderness. Extremities are without edema. Assessment: * Assessment: 1.?Hepatic hemangioma - D18. 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 Currently she appears to be stable. We discussed the endoscopic findings. She will have followup endoscopy in august of 2024. She understands risks and benefits and agrees to proceed. Imaging of her hepatic hemangioma will be obtained. Followup will be in one year pending these results. Plan: * Treatment: * 2.?Gastroesophageal reflux disease, unspecified whether esophagitis present?Procedure: UPPER GI ENDOSCOPY (Ordered for 11/28/2023)* August 2024 3.?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?Procedure: UPPER GI ENDOSCOPY (Ordered for 11/28/2023)* August 2024 * Preventive Medicine:? ??Counseling:?Care goal follow-up plan:?Above Normal BMI Follow-up?Giving encouragement to exercise,?BMI management provided?Yes.? * Follow Up:?1 Year * * Sign off status: Completed true * Provider:?Raúl Pike MD Date:?0 11/28/2023 Generated for Chitra ordaz/Consuelo/Gaelitting on:?07/23/2024 11:15 AM EDT History and Physical Notes * HPI (History of Present Illness) Category Sub-Category Detail Notes Category Not es New symptom(s) The patient i s a pleasant 48-year-old woman seen today in followup of Gamino's esophagus/reflux disease and hepatic hemangioma. Previous endoscopy in august of 2022 done for dysphagia and colon cancer screening showed an irregular EG junction which was biopsied. Focal intestinal metaplasia was identified consistent with Gamino's esophagus. We reviewed this today. Other biopsy showed no H. pylori or celiac disease. She underwent colonoscopy at the same time, which was normal, including biopsies. We reviewed this today. Since we saw her last she's had thyroid cancer with a thyroidectomy at [facility]. She continues on esomeprazole for her reflux. She takes occasional TUMS for breakthrough symptoms. She has no dysphagia, hematemesis, or melena. Weight and appetite have been stable. She remains asymptomatic from her hepatic hemangioma. Examination Category Sub-Category Detail Notes Category Not es General Examination On exami nation today, she appears well. Skin is anicteric. Lungs are clear. Heart shows a regular rate and rhythm. Abdomen is soft no focal masses or tenderness. Extremities are without edema.
--- OUTSIDE RECORDS SUMMARY | 2024-07-23 11:15 | XMS_ITS | Encounter Summary ---
Author Organization [facility] [place] [facility] Address [address] [place] [address] Care Team Providers Care Car Designer Name Role Phone Pcp, No Primary Care Provider Brett Luis MD Primary Care Provider [phone] Encounter Details Date Type Department Care Team (Late st Contact Info) Description 02/27/2024 Scanned Document [facility] Plastic & Reconstructive Surgery [address] [place] [address] Michael Long MD [address] [place] [address] [address] [place] [phone] Social History Tobacco Use Types Packs/Day Years [...] Description 03/04/2025 9:00 AM EST Office Visit [facility] Plastic & Reconstructive Surgery [place] [address] [facility] [address] [place] [address] Michael Long MD [address] [facility] [address] [place] [address] documented as of this encounter Visit Diagnoses Not on filedocumented in this encounter Care Teams Car Designer Relationship Specialty Start Date End Date Pcp, No PCP - General General Medicine 03/04/19 03/02/24 Brett Sharma MD [address] [place] [address] PCP - General Family Medicine 03/03/24 documented as of this encounter
--- OUTSIDE RECORDS SUMMARY | 2024-07-23 11:15 | XMS_ITS | Encounter Summary ---
Author Organization [facility] Address [address] [place] [address] Care Team Providers Care Oil Well Services Superintendent Name Role Phone Brett Sharma MD Primary Care Provider + [phone] Encounter Details Date Type Department Care Team (Late st Contact Info) Description 04/21/2024 Scanned Document [facility] Plastic & Reconstructive Surgery [address] [place] [address] Mary Solomon LPN [address] [address] Social History Tobacco Use Types Packs/Day Years [...] [facility] [address] [place] [address] Michael Long MD [address] [facility] [address] [place] [address] documented as of this encounter Visit Diagnoses Not on filedocumented in this encounter Care Teams Oil Well Services Superintendent Relationship Specialty Start Date End Date Brett Sharma MD [address] [place] [address] PCP - General Family Medicine 03/03/24 documented as of this encounter
--- OUTSIDE RECORDS SUMMARY | 2024-07-23 11:15 | XMS_ITS | Clinical Summary ---
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 Phone Brett Sharma MD Primary Care Provider Allergies Active Allergy Reactions Criticality Noted Date Comments Amoxicillin-Pot Clavulanate Anaphylaxis High 10/19/2013 Cinnamon Unknown/Patient and Family Unable to Define Medium 12/31/2023 Doxycycline Anaphylaxis High 05/03/2017 Hydrocodone-Acetamin ophen Swelling Medium 05/03/2017 Ok with tylenol Ibuprofen Shortness Of Breath,Anaphylaxis High 12/31/2023 Delayed hypersensitivity reaction Latex Rash/Dermatitis,Unk nown/Patient and Family Unable to Define Medium 05/21/2019 Meperidine Swelling,Unknown/Pa tient and Family Unable to Define Medium 05/03/2017 Morphine Itching,Swelling Medium 10/19/2013 Prednisone Other (See Comments) Medium 08/28/2022 Neuropathy Strawberries Hives Medium 04/04/2017 Tramadol Itching Low 09/12/2023 Itchy throat Itchy throat Itchy throat Valacyclovir Other (See Comments) Medium 08/28/2022 Medications Medication Sig Dispensed Refills Start Date End Date Status calcitRIOL (ROCALTROL) 0.25 MCG capsule Take 1 capsule (0.25 mcg total) by mouth every morning. 02/25/2023 09/06/2024 Active Symbicort 160-4.5 MCG/ACT inhaler Inhale 2 puffs 2 (two) times a day. 09/05/2023 Active albuterol (PROVENTIL) (0.083%) 2.5 mg/3 mL nebulizer solution INHALE 1 AMP EVERY 4 HOURS NEEDED 09/24/2023 Active acyclovir (ZOVIRAX) 200 mg capsule Take 2 capsules (400 mg total) by mouth. 11/13/2022 Active celeCOXIB (CeleBREX) 100 MG capsule as needed. 09/24/2023 Active Auvi-Q 0.3 MG/0.3ML auto-injection INJECT NEEDED FOR SEVERE ALLERGIC REACTION INCLUDING ANAPHYLAXIS DIRECTED AND THEN CALL 911 12/16/2023 Active esomeprazole (NexIUM) 40 MG capsule every morning. Active levothyroxine (SYNTHROID, LEVOTHROID) 125 MCG tablet Oral for 90 10/16/2023 Active norethindrone (AYGESTIN) 5 MG tablet Take 1 tablet (5 mg total) by mouth every morning. Active levalbuterol (XOPENEX HFA) 45 mcg/puff inhaler Inhale 2 puffs every 4 (four) hours as needed. 06/20/2023 Active Xiidra 5 % Solution INSTILL 1 DROP INTO BOTH EYES TWICE A DAY Ophthalmic for 30 Active diazepam (VALIUM) 5 MG tabletIndications: Abdominal pannus,Umbilical hernia without obstruction and without gangrene Take 1 tablet (5 mg total) by mouth 4 times daily (every 6 hours) as needed for anxiety. 15 tablet 12/26/2023 Active HYDROmorphone (DILAUDID) 2 MG tabletIndications: Abdominal pannus,Umbilical hernia without obstruction and without gangrene Take 1 tablet (2 mg total) by mouth every 4 (four) hours as needed for moderate pain or severe pain. Max Daily Amount: 12 mg 18 tablet 01/02/2024 Active calcium carbonate (TUMS) 500 MG chewable tablet Chew 1 tablet (500 mg total) nightly. Active famotidine (PEPCID) 40 MG tablet Take 1 tablet (40 mg total) by mouth 2 (two) times a day as needed. 03/11/2024 Active PANTOprazole (PROTONIX) 40 MG EC tablet Take 1 tablet (40 mg total) by mouth. 02/22/2024 Active diazepam (VALIUM) 5 MG tabletIndications: Diastasis recti Take 1 tablet (5 mg total) by mouth 3 times daily (every 8 hours) as needed for muscle spasms. 10 tablet 03/26/2024 Active Active Problems No known active problems Resolved Problems Problem Noted Date Diagnosed Date Resolved Date Asthma exacerbation, mild 03/03/2024 Encounters Date Type Department Care Team Description 05/28/2024 9:00 AM EST Office Visit [facility] Plastic & Reconstructive Surgery [address] [id number] Clyde Martin PA Abdominal pannus (Primary Dx); Lipodystrophy; Umbilical hernia without obstruction and without gangrene; Diastasis recti 05/28/2024 Travel from Last 3 Months Social History Tobacco Use Types Packs/Day Years [...] Orientation Heterosexual (straight) 03/03 11:57 AM EST Last Filed Vital Signs Vital Sign Reading Time Taken Comments Blood Pressure 104/70 03/04/2024 8:18 AM EST Pulse 88 03/04/2024 8:18 AM EST Temperature 37.2 ??C (99 ??F) 03/04/2024 8:18 AM EST Respiratory Rate 18 03/04/2024 8:18 AM EST Oxygen Saturation 96% 03/04/2024 8:18 AM EST Inhaled Oxygen Concentration - - Weight 61.2 kg (135 lb) 03/26/2024 1:03 PM EST Height 162.6 cm (5' 4 ) 03/26/2024 1:03 PM EST Body Mass Index 23.17 03/26/2024 1:03 PM EST Plan of Treatment Upcoming Encounters Date Type Department Care Team (Late st Contact Info) Description 03/04/2025 9:00 AM EST Office Visit [facility] Plastic & Reconstructive Surgery [address] [place] [address] Michael Long MD [address] [place] [address] Health Maintenance Due Date Last Done Comments Hepatitis C Virus Screening 1976 HIV Screening 1989 DTaP/Tdap/Td Vaccines (1 - Tdap) 09/14/1995 Hepatitis B Vaccines (1 of 3 - 19+ 3-dose series) 09/14/1995 Pap Smear (Ages 21-65) 1997 Mammogram 2016 Colonoscopy 2021 Influenza Vaccine Completed 12/16/2023, , 12/16/2023, Additional history exists COVID-19 Vaccine Completed 01/29/2024, 11/2022, 01/17/2022, Additional history exists Pneumococcal Vaccine: Pediatric (0-5 Years) and At-Risk Patients (6 to 49 Years) Aged Out No longer eligible based on patient's age to complete this topic Advance Directives * Full Code (Latest Code Status on File) Date Activated Date Inactivated Comments 03/03/2024 9:09 PM * Full Code Date Activated Date Inactivated Comments 03/03/2024 12:17 PM 03/03/2024 9:09 PM 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
--- OUTSIDE RECORDS SUMMARY | 2024-07-23 11:15 | XMS_ITS | Clinical Summary ---
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 Role Phone Brett Sharma NP Primary Care Provider Allergies Active Allergy Reactions Criticality Noted Date Comments Amoxicillin-Pot Clavulanate Anaphylaxis High 10/19/2013 Cinnamon 12/31/2023 Doxycycline Anaphylaxis High 05/03/2017 Hydrocodone-Acetaminophen Swelling 05/03/2017 Ibuprofen Anaphylaxis High 12/31/2023 Latex Rash Low 05/21/2019 Meperidine Swelling 05/03/2017 Morphine 09/12/2021 Other Rash Low 04/04/2017 turnips Oxycodone-Acetaminophen Rash,Swelling Low 8 Prednisone Medium 08/28/2022 Other Reaction(s): Other (See Comments) Mcclelland Hives Medium 04/04/2017 Tramadol Itching Low 09/12/2023 Itchy throat Itchy throat Valacyclovir Medium 08/28/2022 Other Reaction(s): Other (See Comments) Medications acyclovir (ZOVIRAX) 200 mg capsule Take 2 capsules (400 mg total) by mouth 2 (two) times a day. Active albuterol HFA (PROAIR HFA ; PROVENTIL HFA ; VENTOLIN HFA) 90 mcg/actuation inhaler Inhale 2 puffs by mouth every 6 hours as needed. 0 Active calcitrioL (ROCALTROL) 0.25 mcg capsule Take 1 capsule (0.25 mcg total) by mouth 1 (one) time each day. Active celecoxib (CeleBREX) 100 mg capsule TAKE 1 CAPSULE BY MOUTH EVERY DAY. BRING FOR CHALLENGE Active Auvi-Q 0.3 mg/0.3 mL injection INJECT NEEDED FOR SEVERE ALLERGIC REACTION INCLUDING ANAPHYLAXIS DIRECTED AND THEN CALL 911 4 Active levalbuterol (XOPENEX HFA) 45 mcg/actuation inhaler Inhale 2 puffs by mouth Every 4 hours as needed. 4 Active levothyroxine (SYNTHROID, LEVOTHROID) 100 mcg tablet Take 1 tablet (100 mcg total) by mouth 1 (one) time each day in the morning. 3 Active omeprazole (PriLOSEC) [address] capsule Take 1 capsule (20 mg total) by mouth 1 (one) time each day. 3 Active Xiidra 5 % dropperette Place 1 drop into both eyes 2 (two) times a day. 2 Active Active Problems Problem Noted Date Diagnosed Date Abnormal uterine bleeding 05/02/2022 Encounters Date Type Department Care Team Description 06/11/2024 Telephone Obstetrics and Gynecology [facility] [address] [place] [phone] Viky Cohen RN f/u appt for iud check 06/10/2024 12:43 PM EST - 06/10/2024 11:59 PM EST Hospital Encounter [facility] OB Ultrasound [address] [place] [address] Fibroids Discharge Disposition: Home or Self Care 06/10/2024 11:30 AM EST Procedure visit Obstetrics and Gynecology [facility] [address] [place] [phone] Sharon Lawrence DO test negative (Primary Dx); Abnormal uterine bleeding (AUB) 06/04/2024 Telephone Obstetrics and Gynecology [facility] [address] [place] [phone] Darya Linares MA prior auth 06/03/2024 Telephone Obstetrics and Gynecology [facility] [address] [place] [address], [place] [phone] Viky Cohen RN ultrasound / iud appt today 05/14/2024 Telephone Obstetrics and Gynecology [facility] [address] [place] [address] Physician, No Pcp from Last 3 Months Surgical History Surgery Date Site/Laterality Comments SECTION PROCEDURE: SECTION TONSILLECTOMY PROCEDURE:TONSILLECTOMY;COMMENT:adnoids WISDOM TOOTH EXTRACTION PROCEDURE:WISDOM TOOTH EXTRACTION COLONOSCOPY PROCEDURE:COLONOSCOPY RADIOFREQUENCY ABLATION PROCEDURE:RADIOFREQUENCY ABLATION;COMMENT:of uterine fibroid via Sonata THYROIDECTOMY PROCEDURE:THYROIDECTOMY;COMMENT:total Medical History Medical History Date Comments Asthma DX:Asthma Hemochromatosis DX:Hemochromatos is Gamino esophagus DX:Gamino eso phagus Papillary thyroid carcinoma 01/2023 DX:P apillary thyroid carcinoma (HCC) Hearing loss DX:Hearing loss; COMMENT:bilateral; Fibroids DX:Fibroids Hypoparathyroidism DX:Hypoparath yroidism (HCC) Family History Medical History Relation Name Comments Diabetes Father Diabetes Maternal Grandmother Multiple myeloma Mother Breast cancer Mother's Sister Berry syndrome Sister mosaic; has aortic stenosis Colon cancer Neg Hx Ovarian cancer Neg Hx Uterine cancer Neg Hx Relation Name Status Comments Father Maternal Grandmother Mother Mother's Sister Sister Social History Tobacco Use Types Packs/Day Years Used Date Smoking Tobacco: Never Smokeless Tobacco: Never Alcohol Use Standard Drinks/Week Comments Yes 0 (1 standard drink = 0.6 oz pur e alcohol) Housing Instability Answer Date Recorde d Are you worried that in the next 2 months you may not have stable housing? No 05/27/2024 Food Access & Nutrition Answer Date Rec orded Do you have access to a vari ety of food including fruits and vegetables? Yes 05/27/2024 Health Literacy Answer Date Recorded How often do you need to hav e someone help you when you read instructions, pamphlets, or other written material from your doctor or pharmacy? Never 05/27/2024 Caregiver: How often do you need to have someone help you when you read instructions, pamphlets, or other written material from your doctor or pharmacy? Not on file 05/27/2024 Financial Risk Answer Date Recorded How hard is it for you to pa y for the very basics like food, housing, medical care, and air conditioning / heating? Not very hard 05/27/2024 Transportation Answer Date Recorded Has the lack of transportati on kept you from meetings, work, or from getting things needed for daily living? No Has the lack of transportati on kept you from medical appointments or from getting medications? No 05/27/2024 Social Isolation Answer Date Recorded How often do you feel lonely or isolated from th ose around you? Never 05/27/2024 Food Risk Answer Date Recorded Within the past 12 months we worried whether our food would run out before we got money to buy more. Never true 05/27/2024 Within the past 12 months th e food we bought just didn't last and we didn't have money to get more. Never true 05/27/2024 Dependent Care Answer Date Recorded Do you need help finding or paying for care for your loved ones. For example, child and family therapist or elderly care for an older adult? No 05/27/2024 Education Answer Date Recorded Do you think completing more education or training, like finishing a GED, going to college, or learning a trade, would be helpful for you? No 05/27/2024 Employment and Income Answer Date Recor ded During the last four weeks, have you been actively looking for work? No 05/27/2024 Living Situation Answer Date Recorded What is your living situation? 0 05/27/2024 Comments Unknown Sex and Gender Information Value Date Recorded Sex Assigned at Female 05/29/2024 10:13 AM EST Legal Sex Female 1:23 AM EST Gender Identity Female 05/29/2024 10:13 AM EST Sexual Orientation Not on file Obstetrics History Last Filed Vital Signs Vital Sign Reading Time Taken Comments Blood Pressure 113/69 06/10/2024 11:42 AM EST Pulse 81 06/10/2024 11:42 AM EST Temperature - - Respiratory Rate - - Oxygen Saturation - - Inhaled Oxygen Concentration - - Weight 68 kg (150 lb) 12/31/2023 4:21 PM EDT Height 162.6 cm (5' 4 ) 12/31/2023 4:21 PM EDT Body Mass Index 25.75 12/31/2023 4:21 PM EDT Plan of Treatment Upcoming Encounters Date Type Department Care Team (Late st Contact Info) Description 07/28/2024 1:00 PM EDT Office Visit Obstetrics and Gynecology - [place] [address] [place] [phone] Faustina Weaver MD [address] [place] [address] 01/15/2025 8:30 AM EDT Office Visit Obstetrics and Gynecology - [place] [address] [place] [phone] Faustina Weaver MD [address] [place], [place] [id number] Health Maintenance Due Date Last Done Comments Breast Cancer Screening 1975 Hepatitis B Vaccines (1 of 3 - 19+ 3-dose series) 09/14/1995 Colorectal Cancer Screening: Colonoscopy 03/31/2022 Cholesterol Screening (Lipid Panel) 03/10/2025 03/10/2020 Social Influencers of Health Screening 05/27/2025 05/27/2024 Depression Screening 07/22/2025 07/22/2024 Pneumococcal Vaccine: Pediatrics (0 to 5 Years) and At-Risk Patients (6 to 64 Years) (3 of 3 - PCV20 or PCV21) 2026 01/06/2021, 11/03/2020 Cervical Cancer Screening: HPV 12/30/2028 12/31/2023 DTaP,Tdap,and Td Vaccines (2 - Td or Tdap) 08/18/2033 08/19/2023 MMR Vaccines Aged Out 09/16/2018 No longer eligi ble based on patient's age to complete this topic HIV Screening Completed 10/17/2022 Hepatitis C Screening Completed 10/17/2022 Influenza Vaccine Completed 12/16/2023, , 02/19/2022, Additional history exists COVID-19 Vaccine Completed 01/29/2024, 11/2022, 01/17/2022, Additional history exists HIB Vaccines Aged Out No longer eligi ble based on patient's age to complete this topic HPV Vaccines Aged Out No longer eligi ble based on patient's age to complete this topic Hepatitis A Vaccines Aged Out No long er eligible based on patient's age to complete this topic IPV Vaccines Aged Out No longer eligi ble based on patient's age to complete this topic Meningococcal ACWY Vaccine Aged Out N o longer eligible based on patient's age to complete this topic Meningococcal B Vacine Aged Out No lo nger eligible based on patient's age to complete this topic RSV Immunization Patients Under 20 months Aged Out No longer eligible based on patient's age to complete this topic Varicella Vaccines Aged Out No longer eligible based on patient's age to complete this topic Procedures Procedure Name Priority Date/Time Associated Diagnosis Comments US PELVIS TRANSVAGINAL NON OB Routine 06/10/2024 2:20 PM EST Fibroids US PELVIS NON OB COMPLETE Routine 06/10/2024 2:20 PM EST Fibroids POC , URINE DIAGNOSTIC Routine 06/10/2024 11:41 AM EST test negative HPV Routine 12/31/2023 HEPATITIS C SCREENING Routine 10/17/2022 HIV SCREENING Routine 10/17/2022 from Last 3 Months or Most Recently Relevant to Health Maintenance Results * US Pelvis Non OB Complete (06/10/2024 2:20 PM EST) Anatomical Region Laterality Modality Body, Pelvis Ultrasound 06/10/2024 3:35 PM EST Narrative 06/10/2024 4:00 PM EST Female Pelvis ?(Signed Final 06/10/2024 04:00 pm) PATIENT INFO: ID #: ? [id number] ? : ??[birth year] (48 yrs)(F) Name: ? CAMRYN WINN ?Visit Date: 06/10/2024 03:35 pm PERFORMED BY: Attending: ?Sharon Lawrence, DO Associate: ?Sharon Lawrence DO Performed By: ? Imelda Ritter RDND Referred By: ?FAUSTINA WEAVER M.D. Ref. Address: ? [address] ? [address] ? [place], [place] Location: ? [facility] Ultrasound (OBU) SERVICE(S) PROVIDED: US Pelvic and Transvaginal ?[id number], [id number] INDICATIONS: Fibroids ? D25.9 Encounter for IUD insertion ?Z30.430 TECHNIQUE/SCAN QUALITY: Technique: ?A transabdominal and a transvaginal scan were ? completed at today's visit Scan Quality: ?? Satisfactory COMPARISON: Ultrasounds dating back to 09/12/21 CLINICAL INFORMATION: Age: ?? 47 ?G: ?4 ? P: ?2 AB: ?2 Menses: ?Irregular. Hormone Treatment: ? norethindrone HISTORY: section Thyroidectomy with partial parathyroidectomy due to cancer January 2023 Abdominoplasty Radiofrequency Sonata UTERUS: Size (cm) ?L: ??9.58 ?W: ?? 7.06 ? H: ??5.31 Vol(ml): ?188.05 Position: ?Anteverted, anteflexed. Comment: ? The uterus is enlarged and irregular in contour. ?The myometrium is heterogeneous. ??Multiple ?fibroids noted (see below). MYOMETRIAL LESIONS: # ?? Date ?Location ?Site ? Description 1 ?? 06/10/24 ? Midline Posterior Submucosal ? Heterogeneous 1 ?? 01/22/24 ? Midline Posterior partially ?Heterogeneous ? Intracavitary 1 ?? 05/15/23 ? Midline Posterior partially ?Heterogeneous ? intracavitary 2 ?? 06/10/24 ? Right Posterior ?? Intramural ? Heterogeneous 2 ?? 01/22/24 ? Right Lateral ? Intramural ? Heterogeneous 2 ?? 05/15/23 ? Right Lateral ? Intramural ? Heterogeneous 3 ?? 06/10/24 ? Midline Posterior Intramural ? Heterogeneous 3 ?? 01/22/24 ? Midline Posterior Subserosal ? Heterogeneous 3 ?? 05/15/23 ? Midline Posterior Subserosal ? Heterogeneous 4 ?? 01/22/24 ? Left Lateral ?Intramural ? Heterogeneous 4 ?? 05/15/23 ? Left Lateral ?Intramural ? Heterogeneous 5 ?? 01/22/24 ? Midline Posterior Intramural ? Heterogeneous Measurements: # ?? Date ?L(cm) ? AP(cm) ?TV(cm) 1 ?? 06/10/24 ? 1.87 ?1.75 ?2.62 1 ?? 01/22/24 ? 2.58 ?2.15 ?2.88 1 ?? 05/15/23 ? 3.8 ? 3.14 ?3.9 2 ?? 06/10/24 ? 2.15 ?1.75 ?2.32 2 ?? 01/22/24 ? 2.61 ?2.1 ? 2.68 2 ?? 05/15/23 ? 2.4 ? 2.23 ?2.54 3 ?? 06/10/24 ? 0.9 ? 0.77 ?1 3 ?? 01/22/24 ? 2.52 ?1.61 ?2.36 3 ?? 05/15/23 ? 2.37 ?2.08 ?2.36 4 ?? 01/22/24 ? 1.46 ?1.01 ?1.25 4 ?? 05/15/23 ? 1.94 ?1.84 ?1.86 5 ?? 01/22/24 ? 2.54 ?1.76 ?2.25 ENDOMETRIUM: Thickness: ?? 3.2 ? mm Comment: ?The endometrial cavity is distorted by multiple ? uterine fibroids. The endometrial cavity is ? symmetric. ??The endometrial lining is regular. ? Single layer thickness measures 0.16 cm. CERVIX: No abnormality visualized. RIGHT OVARY: Size(cm): ?1.06 ? x ??1.51 ? x ??2.23 ?Vol(ml): ??1.87 Comment: ?Normal appearance. The ovary is located between ? the uterus and the pelvic sidewall. RIGHT ADNEXA: Comment: ?No abnormality visualized. LEFT OVARY: Size(cm): ?2.09 ? x ??1.48 ? x ??1.57 ?Vol(ml): ??2.54 Comment: ?Normal appearance. The ovary is located between ? the uterus and the pelvic sidewall. LEFT ADNEXA: Comment: ?No abnormality visualized. CUL-DE-SAC: There is no free fluid in the cul de sac. BLADDER: Distended with regular contour. COMMENTS: Ms. Winn is referred today for evaluation of fibroids and for an ultrasound guided IUD insertion. Transabdominal and transvaginal imaging today w/a 9.58cm AV uterus w/ inhomogeneous uterine parenchyma w/ several small myomas and 2 dominant fibroid lesions measured today: ??1.87 x 1.75 x 2.62cm posterior type II-III submucosal myoma ans a 2cm posterior type IV myomoa on right/posterior. ??Bilateral ovaries/adnexa within normal limits. ??No FF in cul de sac. Today's ultrasound demonstrates multiple uterine leiomyomas described above, decreased in size slightly from previous imaging. The IUD was successfully inserted-documented in EPIC chart. The ovaries appear normal. Thank you for allowing us to participate in the care of your patient. [facility], DO Electronically Signed Final Report ?? 06/10/2024 04:00 pm Procedure [facility], - 06/10/2024 Female Pelvis (Signed Final 06/10/2024 04:00 pm) PATIENT INFO: ID #: [id number] : [birth year] (48 yrs)(F) Name: CAMRYN WINN Visit Date: 06/10/2024 03:35 pm PERFORMED BY: Attending: [facility] DO Associate: Sharon Lawrence DO Performed By: Imelda Ritter [facility] Referred By: FAUSTINA WEAVER M.D. Ref. Address: [address] [place] [address] Location: [facility] Ultrasound (OBU) SERVICE(S) PROVIDED: US Pelvic and Transvaginal [id number], [id number] INDICATIONS: Fibroids D25.9 Encounter for IUD insertion Z30.430 TECHNIQUE/SCAN QUALITY: Technique: A transabdominal and a transvaginal scan were completed at today's visit Scan Quality: Satisfactory COMPARISON: Ultrasounds dating back to 09/12/21 CLINICAL INFORMATION: Age: 47 P: 2 AB: 2 Menses: Irregular. Hormone Treatment: norethindrone HISTORY: section Thyroidectomy with partial parathyroidectomy due to cancer January 2023 Abdominoplasty Radiofrequency Sonata UTERUS: Size (cm) L: 9.58 W: 7.06 H: 5.31 Vol(ml): 188.05 Position: Anteverted, anteflexed. Comment: The uterus is enlarged and irregular in contour. The myometrium is heterogeneous. Multiple fibroids noted (see below). MYOMETRIAL LESIONS: # Date Location Site Description 1 06/10/24 Midline Posterior Submucosal Heterogeneous 1 01/22/24 Midline Posterior partially Heterogeneous Intracavitary 1 05/15/23 Midline Posterior partially Heterogeneous intracavitary 2 06/10/24 Right Posterior Intramural Heterogeneous 2 01/22/24 Right Lateral Intramural Heterogeneous 2 05/15/23 Right Lateral Intramural Heterogeneous 3 06/10/24 Midline Posterior Intramural Heterogeneous 3 01/22/24 Midline Posterior Subserosal Heterogeneous 3 05/15/23 Midline Posterior Subserosal Heterogeneous 4 01/22/24 Left Lateral Intramural Heterogeneous 4 05/15/23 Left Lateral Intramural Heterogeneous 5 01/22/24 Midline Posterior Intramural Heterogeneous Measurements: # Date L(cm) AP(cm) TV(cm) 1 06/10/24 1.87 1.75 2.62 1 01/22/24 2.58 2.15 2.88 1 05/15/23 3.8 3.14 3.9 2 06/10/24 2.15 1.75 2.32 2 01/22/24 2.61 2.1 2.68 2 05/15/23 2.4 2.23 2.54 3 06/10/24 0.9 0.77 1 3 01/22/24 2.52 1.61 2.36 3 05/15/23 2.37 2.08 2.36 4 01/22/24 1.46 1.01 1.25 4 05/15/23 1.94 1.84 1.86 5 01/22/24 2.54 1.76 2.25 ENDOMETRIUM: Thickness: 3.2 mm Comment: The endometrial cavity is distorted by multiple uterine fibroids. The endometrial cavity is symmetric. The endometrial lining is regular. Single layer thickness measures 0.16 cm. CERVIX: No abnormality visualized. RIGHT OVARY: Size(cm): 1.06 x 1.51 x 2.23 Vol(ml): 1.87 Comment: Normal appearance. The ovary is located between the uterus and the pelvic sidewall. RIGHT ADNEXA: Comment: No abnormality visualized. LEFT OVARY: Size(cm): 2.09 x 1.48 x 1.57 Vol(ml): 2.54 Comment: Normal appearance. The ovary is located between the uterus and the pelvic sidewall. LEFT ADNEXA: Comment: No abnormality visualized. CUL-DE-SAC: There is no free fluid in the cul de sac. BLADDER: Distended with regular contour. COMMENTS: Ms. Winn is referred today for evaluation of fibroids and for an ultrasound guided IUD insertion. Transabdominal and transvaginal imaging today w/a 9.58cm AV uterus w/ inhomogeneous uterine parenchyma w/ several small myomas and 2 dominant fibroid lesions measured today: 1.87 x 1.75 x 2.62cm posterior type II-III submucosal myoma ans a 2cm posterior type IV myomoa on right/posterior. Bilateral ovaries/adnexa within normal limits. No FF in cul de sac. Today's ultrasound demonstrates multiple uterine leiomyomas described above, decreased in size slightly from previous imaging. The IUD was successfully inserted-documented in EPIC chart. The ovaries appear normal. Thank you for allowing us to participate in the care of your patient. [facility], DO Electronically Signed Final Report 06/10/2024 04:00 pm us Faustina Weaver MD IMG US PROCEDURES Final Resul t * US Pelvis Transvaginal Non OB (06/10/2024 2:20 PM EST) Anatomical Region Laterality Modality Body Ultrasound 06/10/2024 3:35 PM EST Narrative 06/10/2024 4:00 PM EST Female Pelvis ?(Signed Final 06/10/2024 04:00 pm) PATIENT INFO: ID #: ? [id number] ? : ??[birth year] (48 yrs)(F) Name: ? CAMRYN WINN ?Visit Date: 06/10/2024 03:35 pm PERFORMED BY: Attending: ?Sharon Lawrence, DO Associate: ?Sharon Lawrence DO Performed By: ? Imelda Ritter RDMS Referred By: ?FAUSTIAN WEAVER M.D. Ref. Address: ? [address] ? [address] ? [place] Location: ? [facility] Ultrasound (OBU) SERVICE(S) PROVIDED: US Pelvic and Transvaginal ?[id number], [address] INDICATIONS: Fibroids ? D25.9 Encounter for IUD insertion ?Z30.430 TECHNIQUE/SCAN QUALITY: Technique: ?A transabdominal and a transvaginal scan were ? completed at today's visit Scan Quality: ?? Satisfactory COMPARISON: Ultrasounds dating back to 09/12/21 CLINICAL INFORMATION: Age: ?? 47 ?G: ?4 ? P: ?2 AB: ?2 Menses: ?Irregular. Hormone Treatment: ? norethindrone HISTORY: section Thyroidectomy with partial parathyroidectomy due to cancer January 2023 Abdominoplasty Radiofrequency Sonata UTERUS: Size (cm) ?L: ??9.58 ?W: ?? 7.06 ? H: ??5.31 Vol(ml): ?188.05 Position: ?Anteverted, anteflexed. Comment: ? The uterus is enlarged and irregular in contour. ?The myometrium is heterogeneous. ??Multiple ?fibroids noted (see below). MYOMETRIAL LESIONS: # ?? Date ?Location ?Site ? Description 1 ?? 06/10/24 ? Midline Posterior Submucosal ? Heterogeneous 1 ?? 01/22/24 ? Midline Posterior partially ?Heterogeneous ? Intracavitary 1 ?? 05/15/23 ? Midline Posterior partially ?Heterogeneous ? intracavitary 2 ?? 06/10/24 ? Right Posterior ?? Intramural ? Heterogeneous 2 ?? 01/22/24 ? Right Lateral ? Intramural ? Heterogeneous 2 ?? 05/15/23 ? Right Lateral ? Intramural ? Heterogeneous 3 ?? 06/10/24 ? Midline Posterior Intramural ? Heterogeneous 3 ?? 01/22/24 ? Midline Posterior Subserosal ? Heterogeneous 3 ?? 05/15/23 ? Midline Posterior Subserosal ? Heterogeneous 4 ?? 01/22/24 ? Left Lateral ?Intramural ? Heterogeneous 4 ?? 05/15/23 ? Left Lateral ?Intramural ? Heterogeneous 5 ?? 01/22/24 ? Midline Posterior Intramural ? Heterogeneous Measurements: # ?? Date ?L(cm) ? AP(cm) ?TV(cm) 1 ?? 06/10/24 ? 1.87 ?1.75 ?2.62 1 ?? 01/22/24 ? 2.58 ?2.15 ?2.88 1 ?? 05/15/23 ? 3.8 ? 3.14 ?3.9 2 ?? 06/10/24 ? 2.15 ?1.75 ?2.32 2 ?? 01/22/24 ? 2.61 ?2.1 ? 2.68 2 ?? 05/15/23 ? 2.4 ? 2.23 ?2.54 3 ?? 06/10/24 ? 0.9 ? 0.77 ?1 3 ?? 01/22/24 ? 2.52 ?1.61 ?2.36 3 ?? 05/15/23 ? 2.37 ?2.08 ?2.36 4 ?? 01/22/24 ? 1.46 ?1.01 ?1.25 4 ?? 05/15/23 ? 1.94 ?1.84 ?1.86 5 ?? 01/22/24 ? 2.54 ?1.76 ?2.25 ENDOMETRIUM: Thickness: ?? 3.2 ? mm Comment: ?The endometrial cavity is distorted by multiple ? uterine fibroids. The endometrial cavity is ? symmetric. ??The endometrial lining is regular. ? Single layer thickness measures 0.16 cm. CERVIX: No abnormality visualized. RIGHT OVARY: Size(cm): ?1.06 ? x ??1.51 ? x ??2.23 ?Vol(ml): ??1.87 Comment: ?Normal appearance. The ovary is located between ? the uterus and the pelvic sidewall. RIGHT ADNEXA: Comment: ?No abnormality visualized. LEFT OVARY: Size(cm): ?2.09 ? x ??1.48 ? x ??1.57 ?Vol(ml): ??2.54 Comment: ?Normal appearance. The ovary is located between ? the uterus and the pelvic sidewall. LEFT ADNEXA: Comment: ?No abnormality visualized. CUL-DE-SAC: There is no free fluid in the cul de sac. BLADDER: Distended with regular contour. COMMENTS: Ms. Winn is referred today for evaluation of fibroids and for an ultrasound guided IUD insertion. Transabdominal and transvaginal imaging today w/a 9.58cm AV uterus w/ inhomogeneous uterine parenchyma w/ several small myomas and 2 dominant fibroid lesions measured today: ??1.87 x 1.75 x 2.62cm posterior type II-III submucosal myoma ans a 2cm posterior type IV myomoa on right/posterior. ??Bilateral ovaries/adnexa within normal limits. ??No FF in cul de sac. Today's ultrasound demonstrates multiple uterine leiomyomas described above, decreased in size slightly from previous imaging. The IUD was successfully inserted-documented in EPIC chart. The ovaries appear normal. Thank you for allowing us to participate in the care of your patient. Sharon Lawrence, DO Electronically Signed Final Report ?? 06/10/2024 04:00 pm Procedure Note Sharon Lawrence, DO - 06/10/2024 Female Pelvis (Signed Final 06/10/2024 04:00 pm) PATIENT INFO: ID #: [id number] : [birth year] (48 yrs)(F) Name: CAMRYN WINN Visit Date: 06/10/2024 03:35 pm PERFORMED BY: Attending: Sharon Lawrence DO Associate: Sharon Lawrence DO Performed By: Imelda Ritter [facility] Referred By: FAUSTINA WEAVER M.D. Ref. Address: [address] [place] [address] [place] [address] Location: [facility] Ultrasound (OBU) SERVICE(S) PROVIDED: US Pelvic and Transvaginal [id number], [id number] INDICATIONS: Fibroids D25.9 Encounter for IUD insertion Z30.430 TECHNIQUE/SCAN QUALITY: Technique: A transabdominal and a transvaginal scan were completed at today's visit Scan Quality: Satisfactory COMPARISON: Ultrasounds dating back to 09/12/21 CLINICAL INFORMATION: Age: 47 P: 2 AB: 2 Menses: Irregular. Hormone Treatment: norethindrone HISTORY: section Thyroidectomy with partial parathyroidectomy due to cancer January 2023 Abdominoplasty Radiofrequency Sonata UTERUS: Size (cm) L: 9.58 W: 7.06 H: 5.31 Vol(ml): 188.05 Position: Anteverted, anteflexed. Comment: The uterus is enlarged and irregular in contour. The myometrium is heterogeneous. Multiple fibroids noted (see below). MYOMETRIAL LESIONS: # Date Location Site Description 1 06/10/24 Midline Posterior Submucosal Heterogeneous 1 01/22/24 Midline Posterior partially Heterogeneous Intracavitary 1 05/15/23 Midline Posterior partially Heterogeneous intracavitary 2 06/10/24 Right Posterior Intramural Heterogeneous 2 01/22/24 Right Lateral Intramural Heterogeneous 2 05/15/23 Right Lateral Intramural Heterogeneous 3 06/10/24 Midline Posterior Intramural Heterogeneous 3 01/22/24 Midline Posterior Subserosal Heterogeneous 3 05/15/23 Midline Posterior Subserosal Heterogeneous 4 01/22/24 Left Lateral Intramural Heterogeneous 4 05/15/23 Left Lateral Intramural Heterogeneous 5 01/22/24 Midline Posterior Intramural Heterogeneous Measurements: # Date L(cm) AP(cm) TV(cm) 1 06/10/24 1.87 1.75 2.62 1 01/22/24 2.58 2.15 2.88 1 05/15/23 3.8 3.14 3.9 2 06/10/24 2.15 1.75 2.32 2 01/22/24 2.61 2.1 2.68 2 05/15/23 2.4 2.23 2.54 3 06/10/24 0.9 0.77 1 3 01/22/24 2.52 1.61 2.36 3 05/15/23 2.37 2.08 2.36 4 01/22/24 1.46 1.01 1.25 4 05/15/23 1.94 1.84 1.86 5 01/22/24 2.54 1.76 2.25 ENDOMETRIUM: Thickness: 3.2 mm Comment: The endometrial cavity is distorted by multiple uterine fibroids. The endometrial cavity is symmetric. The endometrial lining is regular. Single layer thickness measures 0.16 cm. CERVIX: No abnormality visualized. RIGHT OVARY: Size(cm): 1.06 x 1.51 x 2.23 Vol(ml): 1.87 Comment: Normal appearance. The ovary is located between the uterus and the pelvic sidewall. RIGHT ADNEXA: Comment: No abnormality visualized. LEFT OVARY: Size(cm): 2.09 x 1.48 x 1.57 Vol(ml): 2.54 Comment: Normal appearance. The ovary is located between the uterus and the pelvic sidewall. LEFT ADNEXA: Comment: No abnormality visualized. CUL-DE-SAC: There is no free fluid in the cul de sac. BLADDER: Distended with regular contour. COMMENTS: Ms. Winn is referred today for evaluation of fibroids and for an ultrasound guided IUD insertion. Transabdominal and transvaginal imaging today w/a 9.58cm AV uterus w/ inhomogeneous uterine parenchyma w/ several small myomas and 2 dominant fibroid lesions measured today: 1.87 x 1.75 x 2.62cm posterior type II-III submucosal myoma ans a 2cm posterior type IV myomoa on right/posterior. Bilateral ovaries/adnexa within normal limits. No FF in cul de sac. Today's ultrasound demonstrates multiple uterine leiomyomas described above, decreased in size slightly from previous imaging. The IUD was successfully inserted-documented in EPIC chart. The ovaries appear normal. Thank you for allowing us to participate in the care of your patient. Sharon Lawrence DO Electronically Signed Final Report 06/10/2024 04:00 pm Faustina LEDEZMA US PROCEDURES Final Resul t * POC , urine manually resulted (06/10/2024 11:41 AM EST) HCG, Ur POC Negative Negative POC hCG Int QC Pass? Yes Yes EXPIRATION DATE POC na LOT NUMBER POC na Urine Urine specimen obtained by clean catch procedure / Unknown 06/10/2024 11:41 AM EST Sharon Lawrence DO POINT OF CARE TEST ENTER/EDIT ORDERABLES Final Result * Cervical Cancer Screening: HPV (12/31/2023) Cervical Cancer Screening: HPV Negative, Abstracted Historical Provider MD HEALTH MAINTENANCE Final Result * HIV Screening (10/17/2022) HIV Screening Abstracted Historical Provider MD HEALTH MAINTENANCE Final Result * Hepatitis C Screening (10/17/2022) Hepatitis C Screening Abstracted Historical Provider HEALTH MAINTENANCE Final Result from Last 3 Months or Most Recently Relevant to Health Maintenance Insurance Care Teams Joint Cleaning Machine Operator Relationship Specialty Start Date End Date Brett Sharma NP [address] [facility] JERZY Caro PCP - General Family Medicine 09/11/21
--- OUTSIDE RECORDS SUMMARY | 2024-07-23 11:15 | XMS_ITS | Encounter Summary ---
Author Organization [facility] Address [address] [place] [address] Care Team Providers Care Diesel Instructor Name Role Phone Pcp, No Primary Care Provider Brett Luis MD Primary Care Provider [phone] Encounter Details Date Type Department Care Team (Late st Contact Info) Description 02/27/2024 Scanned Document [facility] [address] [place] [address] Michael Long MD [address] [place] [address] [address] [place] [phone] Social History Tobacco Use Types Packs/Day Years [...] Description 03/04/2025 9:00 AM EST [facility] [place] [address] [facility] [address] [place] [address] Michael Long MD [address] [facility] [address] [place] [address] documented as of this encounter Visit Diagnoses Not on filedocumented in this encounter Care Teams Diesel Instructor Relationship Specialty Start Date End Date Pcp, No PCP - General General Medicine 03/04/19 03/02/24 Brett Sharma MD [address] [place] [address] PCP - General Family Medicine 03/03/24 documented as of this encounter
--- OUTSIDE RECORDS SUMMARY | 2024-07-23 11:16 | XMS_ITS ---
[facility] Name [facility] History of Medication Use Medication Directions Dispensed Refills Start Date End Date Stat levonorgestreL (MIRENA) 21 mcg/24hr (up to 8 yrs) 52 mg IUD intrauterine, Once, On Sat06/10/24 at 1215, For 1 dose 06/10/2024 5 completed norethindrone (AYGESTIN) 5 mg tablet Take 1 tablet (5 mg total) by mouth 1 (one) time each day. active calcitrioL (ROCALTROL) 0.25 mcg capsule Take 1 capsule (0.25 mcg total) by mouth 1 (one) time each day. active omeprazole (PriLOSEC) [address] capsule Take 1 capsule (20 mg total) by mouth 1 (one) time each day. 08/09/2022 active levothyroxine (SYNTHROID, LEVOTHROID) 100 mcg tablet Take 1 tablet (100 mcg total) by mouth 1 (one) time each day in the morning. 02/12/2023 active levalbuterol (XOPENEX HFA) 45 mcg/actuation inhaler Inhale 2 puffs by mouth Every 4 hours as needed. 06/20/2023 active Auvi-Q 0.3 mg/0.3 mL injection INJECT NEEDED FOR SEVERE ALLERGIC REACTION INCLUDING ANAPHYLAXIS DIRECTED AND THEN CALL 911 12/16/2023 active acyclovir (ZOVIRAX) 200 mg capsule Take 2 capsules (400 mg total) by mouth 2 (two) times a day. active albuterol HFA (PROAIR HFA ; PROVENTIL HFA ; VENTOLIN HFA) 90 mcg/actuation inhaler Inhale 2 puffs by mouth every 6 hours as needed. 06/23/2019 active Xiidra 5 % dropperette Place 1 drop into both eyes 2 (two) times a day. 08/23/2021 active celecoxib (CeleBREX) 100 mg capsule TAKE 1 CAPSULE BY MOUTH EVERY DAY. BRING FOR CHALLENGE active levalbuterol (XOPENEX HFA) 45 mcg/puff inhaler Inhale 2 puffs every 4 (four) hours as needed. 06/20/2023 active cephalexin (KEFLEX) 500 MG capsule Take 1 capsule (500 mg total) by mouth 2 (two) times a day. 12/26/2023 active acyclovir (ZOVIRAX) 200 MG capsule Take 2 capsules (400 mg total) by mouth 2 (two) times a day. 02/14/2023 active calcitRIOL (ROCALTROL) capsule 0.25 mcg TAKE 1 CAPSULE (0.25 MCG TOTAL) BY MOUTH TWICE A DAY 02/25/2023 active celecoxib (CeleBREX) 100 MG capsule TAKE 1 CAPSULE BY MOUTH EVERY DAY. BRING FOR CHALLENGE 09/24/2023 active calcitRIOL (ROCALTROL) capsule 0.25 mcg TAKE 1 CAPSULE (0.25 MCG TOTAL) BY MOUTH TWICE A DAY 02/25/2023 active estradiol (VIVELLE-DOT) 0.0375 MG/24HR Place 1 patch onto the skin 2 (two) times a week. 06/27/2023 active Symbicort 160-4.5 MCG/ACT inhaler Inhale 2 puffs 2 (two) times a day. 09/05/2023 active Xiidra 5 % SOLN Place 1 drop into both eyes 2 (two) times a day. 08/23/2021 active levalbuterol (XOPENEX HFA) 45 MCG/ACT inhaler Inhale 2 puffs into the lungs every 4 (four) hours as needed. 06/20/2023 active Xiidra 5 % Solution INSTILL 1 DROP INTO BOTH EYES TWICE A DAY Ophthalmic for 30 active acyclovir (ZOVIRAX) 200 MG capsule Take 2 capsules (400 mg total) by mouth 2 (two) times a day. 12/31/2023 active cefdinir (OMNICEF) 300 MG capsule Take 1 capsule (300 mg total) by mouth. 03/11/2024 active Problems Problem Status Onset Date Problem Type Date of Resolution Source Abnormal uterine bleeding active 2022-05-02 ProblemAct [facility] Abdominal pannus active EncounterDiagnosisAct [facility] Diastasis recti active EncounterDiagnosisAct [facility] Screening for cervical cancer active EncounterDiagnosisAct [facility] Fibroids active EncounterDiagnosisAct [facility] History of herpes genitalis active EncounterDiagnosisAct [facility] Umbilical hernia without obstruction and without gangrene [facility] Encounter for screening mammogram for malignant neoplasm of breast active EncounterDiagnosisAct [facility] Lipodystrophy active [facility]Diagn[facility]Act [facility] Immunizations Vaccine Date Source Lot Number Status Prevnar 13 Prefilled Syringe 11/03/2020 [id number] completed Influenza (IM) Preservative Free (36+ Months) 04/08/2013 [facility] Pfizer Cominarty Covid-19 SDV (12+ yrs) 01/27/2023 [facility] CCT [id number] completed Covid-19 (Moderna 12+) 100mcg/0.5mL dosage 04/29/2020 [facility] NEMG [id number] completed Covid-19 (Moderna 12+) 100mcg/0.5mL dosage 05/27/2020 [facility] NEMG [id number] completed Fluarix Quadrivalent Prefilled Syringe 03/03/2016 [facility] 74Y32 completed Flucelvax Trivalent PFS IM; Without Preservative (18+ mos) 12/18/2019 [facility] [id number] completed MMR Single Dose Vial 09/16/2018 [facility] [id number] comp leted Fluarix Quadrivalent Prefilled Syringe 01/23/2017 [facility] [id number] completed Flucelvax Trivalent PFS IM; Without Preservative (18+ mos) 02/04/2021 [facility] 0764[facility] completed Boostrix (Tdap) Prefilled Syringe 08/19/2023 [facility] Z7 L7H completed Fluzone Trivalent Prefilled Syringe (18+ months) 01/20/2018 [facility] [id number] completed Flucelvax Trivalent PFS IM; Without Preservative (18+ mos) 12/11/2018 [facility] [id number] completed Flucelvax Trivalent PFS IM; Without Preservative (18+ mos) 04/06/2019 [facility] 461278 completed Flucelvax Trivalent PFS IM; Without Preservative (18+ mos) 02/19/2022 [facility] 701672 completed Flucelvax Trivalent PFS IM; Without Preservative (18+ mos) 12/16/2023 [facility] 6664[facility] completed Pfizer Comirnaty Covid-19 Pr efilled Syringe (12+ yrs) 01/29/2024 [facility] [id number] completed Fluzone Quadrivalent Multi-d ose Vial (36+ months) 01/21/2015 [facility] [id number] completed Pneumovax 23 Prefilled Syringe 01/06/2021 [facility] T0402 02 completed Flucelvax Trivalent PFS IM; Without Preservative (18+ mos) 02/05/2023 [facility] 480571 completed Encounters Encounter Type Encounter Reason Primary Diagnosis Location Date Ambulatory Benign neoplasm of connective and other soft tissue, 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 05/28/2024 Ambulatory Localized adiposity Localized adiposity H [facility] 03/26/2024 Ambulatory Localized adiposity Localized adiposity [facility] 03/12/2024 Ambulatory Localized adiposity Localized adiposity H [facility] 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 12/26/2023 Ambulatory Localized adiposity Localized adiposity [facility] 10/07/2023 Ambulatory Benign neoplasm of connective and other soft tissue, unspecified [facility] 11/13/2022 [facility] 11/07/2022 Care Team Organization Name Specialty Phone Email Start Date End Da jose miguel [facility] Primary [facility] 03/03/2024 [facility] Primary [facility] 03/02/2024 [facility] 02/28/2024 [facility] NO PCP Primary Care 01/29 [facility] PCP Electrician Office 10/08/2023 07/09/2024 [facility] 11/07/2022 11/07/2022 [facility] NO PCP Primary Care 10/04/2022 10/04/2022
--- OUTSIDE RECORDS SUMMARY | 2024-07-23 11:16 | XMS_ITS ---
Author Organization [facility] Address [address] [place] [address] Care Team Providers Care System Support Specialist Name Role Phone Rylee Dang Primary Care Provider Raúl Turner Jr REASON FOR VISIT Please lock 11-28-2023 office note. Encounters Encounter Location Date Provider Diagnosis [facility] [address] [place] [address] [place] [address] 12/31/2023 Raúl Pike Jr Plan Of Treatment Next Appt Details Provider Name:Raúl arteaga Jr, 09/08/2024 08:20:00 AM, [address] [place] [address] , [place], [place], [phone], Progress Notes * JULIENNE WINNIDOB:1975 ( 48 yo F)Acc No.[id number]:12/31/2023 Patient:?ONDINA WINN :1975???Age:48 Y???Sex:Female Address:[address], [place], [address] * true * Date:? Generated for Chitra ordaz/Consuelo/eTransmitting on:?07/23/2024 11:15 AM EDT
--- OUTSIDE RECORDS SUMMARY | 2024-07-23 11:16 | XMS_ITS ---
Author Organization [facility] Address [address] [place] [address] Care Team Providers Care Renewable Energy Consultant Name Role Phone Rylee Dang Primary Care Provider Raúl Turner Jr REASON FOR VISIT ultrasound Encounters Encounter Location Date Provider Diagnosis [facility] [address] [place] [address] 01/02/2024 Raúl Pike Jr Plan Of Treatment Next Appt Details Provider Name:Raúl arteaga Jr, 09/08/2024 08:20:00 AM, [address] [place] [address] , [place], [place], [phone], Progress Notes * BRYON WINNB:1975 ( 48 yo F)Acc No.[id number]:01/02/2024 Patient:?ONDINA WINN :1975???Age:48 Y???Sex:Female Address:[address], [place], [address] * true * Date:? Generated for Printi sushma/Consuelo/eTransmitting on:?07/23/2024 11:15 AM EDT
== END 2024-07-23 11:55 | disposition home or self-care (01) ==
LOC: HO.HMCC 10:21
PROVIDERS: PCP Nurse Practitioner Family; Visit Provider Nurse Practitioner Family
DX: Z28.39 Other underimmunization status (principal); Z00.00 Encounter for general adult medical examination without abnormal findings; M54.50 Low back pain, unspecified; M54.2 Cervicalgia

== ENCOUNTER → 2024-07-23 10:20 | Outpatient (BNVA) | payer OTHER, SELFPAY | PROVIDERS: PCP Nurse Practitioner Family; Visit Provider Nurse Practitioner Family | DX: Z00.00 Encounter for general adult medical examination without abnormal findings (principal); M54.50 Low back pain, unspecified; M54.2 Cervicalgia; Z28.39 Other underimmunization status | CPT/HCPCS: 96127 ==

== ENCOUNTER 2024-07-27 10:13 | Outpatient (REF) | payer OTHER, SELFPAY ==
--- NOTE | ~2024-07-27 | XR_ITS ---
CLINICAL HISTORY: M54.50 - Low back pain, unspecified 3 views lumbar spine Comparison: None Findings: No fractures or spondylolisthesis. Small anterior lateral vertebral body osteophytes Normal facets Disc spaces are maintained. Pedicles and transverse processes intact. Lordotic curvature is straightened Normal bone mineralization. Normal soft tissues. Sacroiliac joints unremarkable. Impression: 1. No compression fractures or spondylolisthesis. Straightened lumbar lordosis. Minimal spondylosis This document has been electronically signed by: Genaro Mulligan MD on 07/28/2024 12:56:56
--- NOTE | ~2024-07-27 | XR_ITS ---
CLINICAL HISTORY: M54.2 - Cervicalgia 3 views cervical spine Comparison: None Findings: No compression fractures. Equivocal 2 mm retrolisthesis C5 relative to C6 and 2 mm anterolisthesis C7 relative to T1 Odontoid and lateral masses intact. Mild degenerative facet arthropathy C4 through C7. Disc spaces are maintained. Unicinate and transverse processes intact. Lordotic curvature is preserved. Normal bone mineralization. Multiple surgical clips in the soft tissues of the neck No widening of the retropharyngeal soft tissues. Lung apices unremarkable. Impression: 1. Degenerative spondylosis with minimal listhesis This document has been electronically signed by: Genaro Mulligan MD on 07/28/2024 12:46:04
[2024-07-27 10:30] LABS: MANUAL DIFF FLAG NO
[2024-07-27 10:59] LABS: Basophils Absolute Auto 0.1 X10*3/uL (0.0-0.2); Basophils Percent Auto 1.7 % (0-2); Eosinophils Absolute Auto 0.1 X10*3/uL (0.0-0.4); Eosinophils Percent Auto 2.1 % (0-4); Hematocrit 39.6 % (37.0-47.0); Hemoglobin 13.1 g/dl (12.0-16.0); Imm Gran Abs Auto 0.02 X10*3/uL (0.00-0.03); Imm Gran Pct Auto 0.4 % (0.0-0.4); Lymphocytes Absolute Auto 1.7 X10*3/uL (1.2-4.9); Lymphocytes Percent Auto 31.9 % (20-40); Mean Corpuscular HGB Conc 33.1 g/dl (31.0-35.0); Mean Corpuscular Hemoglobin 29.2 pg (27.0-33.0); Mean Corpuscular Volume 88.4 fL (80.0-98.0); Mean Platelet Volume 10.1 fL (9.4-12.3); Monocytes Absolute Auto 0.5 X10*3/uL (0.1-1.2); Neutrophils Absolute Auto 2.9 x10*3/uL (2.0-8.3); Neutrophils Percent Auto 54.9 % (45-73); Platelet Count 298 X10*3/uL (160-400); Red Blood Count 4.48 X10*6/uL (4.20-5.50); White Blood Count 5.2 X10*3/uL (4.8-10.8)
[2024-07-27 11:06] LABS: Appearance Urine Clear; Color Urine Yellow; Glucose Urine UA Negative (Negative); Leukocyte Esterase Urine Negative (Negative); Nitrite Urine Negative (Negative); Urine Blood Negative (Negative); Urine Ketones Negative (Negative); Urine Protein Negative (Neg-Trace)
--- OUTSIDE RECORDS SUMMARY | 2024-07-27 11:58 | XMS_ITS | Encounter Summary ---
Author Organization [facility] Address [address] [place] [address] Care Team Providers Care Cattle Killer Name Role Phone Brett Sharma MD Primary Care Provider + [phone] Encounter Details Date Type Department Care Team (Late st Contact Info) Description 04/21/2024 Scanned Document [facility] Plastic & Reconstructive Surgery [address] [place] [phone] Mary Solomon LPN [address] [address] Social History Tobacco Use Types Packs/Day Years [...] Description 03/04/2025 9:00 AM EST Office Visit [facility] Plastic & Reconstructive Surgery [address] [place] [address] Michael Long MD [address] [facility] [address] [place] [address] documented as of this encounter Visit Diagnoses Not on filedocumented in this encounter Care Teams Cattle Killer Relationship Specialty Start Date End Date Brett Sharma MD [address] [place] [address] PCP - General Family Medicine 03/03/24 documented as of this encounter
--- OUTSIDE RECORDS SUMMARY | 2024-07-27 11:58 | XMS_ITS | Encounter Summary ---
Author Organization [facility] Address [address] [place] [address] Care Team Providers Care Shell Coremaker Name Role Phone Pcp, No Primary Care Provider Brett Luis MD Primary Care Provider + [phone] Encounter Details Date Type Department Care Team (Late st Contact Info) Description 02/27/2024 Scanned Document [facility] Plastic & Reconstructive Surgery [address] [place] [address] Michael Long MD [address] [place] [address] [address] [place] [phone] Social History Tobacco Use Types Packs/Day Years [...] Description 03/04/2025 9:00 AM EST Office Visit [facility] Plastic & Reconstructive Surgery [place] [address] [facility] [address] [place] [address] Michael Long MD [address] [facility] [address] [place] [address] documented as of this encounter Visit Diagnoses Not on filedocumented in this encounter Care Teams Shell Coremaker Relationship Specialty Start Date End Date Pcp, No PCP - General General Medicine 03/04/19 03/02/24 Brett Sharma MD [address] [place] [address] PCP - General Family Medicine 03/03/24 documented as of this encounter
--- OUTSIDE RECORDS SUMMARY | 2024-07-27 11:58 | XMS_ITS ---
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 Vital Signs Blood pressure systolic 00 mm Hg 11/28/19 24 Blood pressure diastolic 00 mm Hg 024 Height 62.50 in 11/28/2023 Weight 144 lbs 11/28/2023 BMI 25.92 kg/m2 11/28/2023 Encounters Encounter Location Date Provider Diagnosis [facility] [address] [facility] [address] [place] [address] 11/28/2023 Raúl Pike Jr Hepatic hemangioma D18.03 [...] Name:Raúl arteaga Jr, 09/08/2024 08:20:00 AM, [address] [facility] , [place], [place], [phone], Progress Notes * JULIENNE WINNSANJUB:1975 ( 48 yo F)Acc No.[id number]:11/28/2023 Progress Notes Patient:?ONDINA WINN Provider:?Raúl Pike MD :1975???Age:48 Y???Sex:Female D ate:11/28/2023 Address:[address], [id number] Pcp:Rylee Dang Subjective: * Chief Complaints: * [...] had thyroid cancer with a thyroidectomy at [facility]. She continues on esomeprazole for her reflux. She takes occasional TUMS for breakthrough symptoms. She has no dysphagia, hematemesis, or melena. Weight and appetite have been stable. She remains asymptomatic from her hepatic hemangioma. * Medical History:?Asthma, hem ochromatosis, Dr. Arturo Lawrence [facility], Mitral valve prolapse, Hepatic hemangioma, Elevated liver [...] MD Date:?0 11/28/2023 Generated for Chitra ordaz/Consuelo/Gaelitting on:?07/27/2024 11:58 AM EDT History and Physical Notes * [...] had thyroid cancer with a thyroidectomy at [facility]. She continues on esomeprazole for [...]
--- OUTSIDE RECORDS SUMMARY | 2024-07-27 11:58 | XMS_ITS | Patient Health Record ---
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 Problem Dysphagia (03388723) Dysphagia (R13.10) Active confirmed Problem Gastroesophageal reflux disease (329664999) Gastroesophageal reflux disease (K21.9) Active confirmed Problem 617552685 Elevated liver function tests (R79.89) Active confirmed Problem 42337270 Dysphagia, unspecified type (R13.10) Active confirmed Problem 58815690 Hepatic hemangio ma (D18.03) Active confirmed Problem 292816871 Elevated liver function tests (R94.5) Active confirmed Problem 634331042 Gastroesophageal reflux disease, unspecified whether esophagitis present (K21.9) Active confirmed Vital Signs Blood pressure diastolic 00 mm Hg 11/28/2023 Height 62.50 in 11/28/2023 Blood pressure systolic 00 mm Hg 11/28/2023 Weight 144 lbs 11/28/2023 BMI 25.92 kg/m2 11/28/2023 Encounters Encounter Location Date Provider Diagnosis [facility] [address] [place] [phone] 11/28/2023 Raúl Pike Jr Hepatic hemangioma D18.03 ; Gastroesophageal reflux disease, unspecified whether esophagitis present K21.9 and 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 K22.70 [facility] [address] [place] [phone] 08/16/2023 Raúl Pike Jr [facility] [address] [place] [phone] 12/31/2023 Raúl Pike Jr [facility] [address] [place] [phone] 01/02/2024 Raúl Pike Jr Assessments Encounter Date Diagnosis (ICD [...] Provider Name:Raúl arteaga , 09/08/2024 08:20:00 AM, [address] [place] [address], [phone], Insurance Providers Payer Name Payer Address Payer Phone Subscriber Number Group Number Insured Name Patient Relationship to Insured Coverage Start Date Coverage End Date [facility] [address] [place], [place] [id number] ONDINA WINN Self - patient is the insured Medical (General) History Medical History History ICD Code Asthma hemochromatosis, Dr. Arturo Lawrence [facility] [place] mitral valve prolapse Hepatic hemangioma Elevated liver [...]
--- OUTSIDE RECORDS SUMMARY | 2024-07-27 11:58 | XMS_ITS | Encounter Summary ---
Author Organization [facility] Address [address] [place] [address] Care Team Providers Care Behavioral Instructor Name Role Phone Brett Sharma MD Primary Care Provider + [phone] Encounter Details Date Type Department Care Team (Late st Contact Info) Description 03/04/[address] [facility] Plastic & Reconstructive Surgery [address] [phone] Michael Long MD [address] [place] [address] Social History Tobacco Use Types Packs/Day Years [...] 03/04/2025 9:00 AM EST Office Visit [facility] Plastic & Reconstructive Surgery [address] [place] [address] Michael Long MD [address] [facility] [address] [place] [address] documented as of this encounter Visit Diagnoses Not on filedocumented in this encounter Care Teams Behavioral Instructor Relationship Specialty Start Date End Date Brett Sharma MD [address] [place] [address] PCP - General Family Medicine 03/03/24 documented as of this encounter
--- OUTSIDE RECORDS SUMMARY | 2024-07-27 11:58 | XMS_ITS | Clinical Summary ---
Author Organization [facility] Address [address] [place] [phone] Phone Care Team Providers Care Land Development Project Manager Name Role Phone Brett Sharma NP Primary Care Provider Allergies Active Allergy Reactions Criticality Noted Date Comments Amoxicillin-Pot Clavulanate Anaphylaxis High 10/19/2013 Cinnamon 12/31/2023 Doxycycline Anaphylaxis High 05/03/2017 Hydrocodone-Acetaminophen Swelling 05/03/2017 Ibuprofen Anaphylaxis High 12/31/2023 Latex Rash Low 05/21/2019 Meperidine Swelling 05/03/2017 Morphine 09/12/2021 Other Rash Low 04/04/2017 turnips Oxycodone-Acetaminophen Rash,Swelling Low 8 Prednisone Medium 08/28/2022 Other Reaction(s): Other (See Comments) [place]our Hives Medium 04/04/2017 Tramadol Itching Low 09/12/2023 [...] Team Description 06/11/2024 Telephone Obstetrics and Gynecology [facility] [address] [place] [phone] Viky Cohen RN f/u appt for iud check 06/10/2024 12:43 PM EST - 06/10/2024 11:59 PM EST Hospital Encounter [facility] OB Ultrasound [address] [place] [address] Fibroids Discharge Disposition: Home or Self Care 06/10/2024 11:30 AM EST Procedure visit Obstetrics and Gynecology [facility] [address] [place] [phone] Sharon Lawrence DO test negative (Primary Dx); Abnormal uterine bleeding (AUB) 06/04/2024 Telephone Obstetrics and Gynecology [facility] [address] [place] [address] Darya Linares MA prior auth 06/03/2024 Telephone Obstetrics and Gynecology [facility] [address] [place] [address], [place] [address] Viky Choen RN ultrasound / iud appt today 05/14/2024 Telephone Obstetrics [facility] [address] [place] [address] Physician, No Pcp from Last [...] care for your loved ones. For example, school child care attendant or elderly care for an older adult? [...] EDT Office Visit Obstetrics and Gynecology - [place] [address] [place] [address] Faustina Weaver MD [address] [place] [address] 01/15/2025 8:30 AM EDT Office Visit Obstetrics and Gynecology - [place] [address] [place] [address] Faustina Weaver MD [address] [place], [place] [phone] Health Maintenance Due Date Last Done Comments [...] 04:00 pm) PATIENT INFO: ID #: ? [id number] ? : ??[birth year] (48 yrs)(F) Name: ? CAMRYN WINN ?Visit Date: 06/10/2024 03:35 pm PERFORMED BY: Attending: ?Sharon Lawrence, DO Associate: ?Sharon Lawrence DO Performed By: ? Imelda Ritter RDTX Referred By: ?FAUSTINA WEAVER M.D. Ref. Address: ? [address] ? [address] ? [place], [place] Location: ? [facility] Ultrasound (OBU) SERVICE(S) PROVIDED: US Pelvic and Transvaginal ?78285, 18063 INDICATIONS: Fibroids ? D25.9 Encounter for IUD [...] 06/10/2024 04:00 pm) PATIENT INFO: ID #: [id number] : [birth year] (48 yrs)(F) Name: CAMRYN WINN Visit Date: 06/10/2024 03:35 pm PERFORMED BY: Attending: Sharon Lawrence DO Associate: Sharon Lawrence DO Performed By: Imelda Ritter [facility] Referred By: FAUSTINA WEAVER M.D. Ref. Address: [address] [place] [address] Location: [facility] Ultrasound (OBU) SERVICE(S) PROVIDED: US Pelvic and Transvaginal 65166, [address]34 INDICATIONS: Fibroids D25.9 Encounter for IUD insertion [...] 04:00 pm) PATIENT INFO: ID #: ? [id number] ? : ??[birth year] (48 yrs)(F) Name: ? CAMRYN WINN ?Visit Date: 06/10/2024 03:35 pm PERFORMED BY: Attending: ?Sharon Lawrence, DO Associate: ?Sharon Lawrence DO Performed By: ? Imelda Ritter RDMS Referred By: ?FAUSTINA WEAVER M.D. Ref. Address: ? [address] ? [address] ? [place] Location: ? [facility] Ultrasound (OBU) SERVICE(S) PROVIDED: US Pelvic and Transvaginal ?99363, 32412 INDICATIONS: Fibroids ? D25.9 Encounter for IUD [...] 06/10/2024 04:00 pm) PATIENT INFO: ID #: [id number] : [birth year] (48 yrs)(F) Name: CAMRYN WINN Visit Date: 06/10/2024 03:35 pm PERFORMED BY: Attending: Sharon Lawrence DO Associate: Sharon Lawrence DO Performed By: Imelda Ritter [facility] Referred By: FAUSTINA WEAVER M.D. Ref. Address: [address] [place] [address] [place] [address] Location: [facility] Ultrasound (OBU) SERVICE(S) PROVIDED: US Pelvic and Transvaginal 69118, 85206 INDICATIONS: Fibroids D25.9 Encounter for IUD insertion [...] Relevant to Health Maintenance Insurance Care Teams Land Development Project Manager Relationship Specialty Start Date End Date Brett Sharma NP [address] [facility] [place] PCP - General Family Medicine 09/11/21
--- OUTSIDE RECORDS SUMMARY | 2024-07-27 11:58 | XMS_ITS | Encounter Summary ---
Author Organization [facility] Address [address] [place] [address] Care Team Providers Care Reroller Hand Name Role Phone Brett Sharma MD Primary Care Provider + [phone] Encounter Details Date Type Department Care Team (Late st Contact Info) Description 03/04/2024 Scanned Document [facility] Plastic & Reconstructive Surgery [address] [phone] Michael Long MD [address] [place] [address] Social History Tobacco Use Types Packs/Day Years [...] Description 03/04/2025 9:00 AM EST Office Visit [facility] Plastic & Reconstructive Surgery [address] [place] [address] Michael Long MD [address] [facility] [address] [place] [address] documented as of this encounter Visit Diagnoses Not on filedocumented in this encounter Care Teams Reroller Hand Relationship Specialty Start Date End Date Brett Sharma MD [address] [place] [address] PCP - General Family Medicine 03/03/24 documented as of this encounter
--- OUTSIDE RECORDS SUMMARY | 2024-07-27 11:58 | XMS_ITS | Clinical Summary ---
Author Organization [facility] Address [address] [place] [address] Care Team Providers Care Ice Cream Machine Operator Name Role Phone Brett Sharma MD Primary [...] Description 05/28/2024 9:00 AM EST Office Visit [facility] Plastic & Reconstructive Surgery [address] [address] Clyde Martin PA Abdominal pannus [...] Description 03/04/2025 9:00 AM EST Office Visit [facility] Plastic & Reconstructive Surgery [address] [place] [address] Michael Long MD [address] [place] [address] Health Maintenance Due Date Last Done Comments [...] 12:17 PM 03/03/2024 9:09 PM Care Teams Ice Cream Machine Operator Relationship Specialty Start Date End Date Brett Sharma MD [address] [place] [address] PCP - General Family Medicine 03/03/24
--- OUTSIDE RECORDS SUMMARY | 2024-07-27 11:58 | XMS_ITS | Clinical Summary ---
Author Organization [facility] Address [address] [place] [address] Care Team Providers Care Corporate Development Intern Name Role Phone Brett Sharma Primary Care Provider [phone] Allergies Active Allergy Reactions Criticality Noted Date Comments Amoxicillin-Pot Clavulanate Anaphylaxis High 10/19/2013 Cinnamon 12/31/2023 Doxycycline Anaphylaxis High 05/03/2017 Hydrocodone-Acetaminoph en Swelling 05/03/2017 Ibuprofen Anaphylaxis High 12/31/2023 Latex Rash Low 05/21/2019 Meperidine Swelling 05/03/2017 Morphine 09/12/2021 Other Rash Low 04/04/2017 turnips Oxycodone-Acetaminophen Rash,Swelling Low 8 Prednisone Other (See Comments) Medium 08/28/2022 [place] Hives Medium 04/04/2017 Tramadol Itching Low 09/12/2023 [...] age to complete this topic Care Teams Corporate Development Intern Relationship Specialty Start Date End Date Brett Sharma [address] [facility] [place] [address] PCP - General Family Medicine 09/11/21
--- OUTSIDE RECORDS SUMMARY | 2024-07-27 11:58 | XMS_ITS | Encounter Summary ---
Author Organization [facility] Address [address] [place] [address] Care Team Providers Care Heat Curer Name Role Phone Pcp, No Primary Care Provider Brett Luis MD Primary Care Provider + [phone] Encounter Details Date Type Department Care Team (Late st Contact Info) Description 02/27/2024 Scanned Document [facility] Plastic & Reconstructive Surgery [address] [place] [address] Michael Long MD [address] [place] [address] [address] [place] [phone] Social History Tobacco Use Types Packs/Day Years [...] [facility] Plastic & Reconstructive Surgery [place] [address] [facility] [address] [place] [address] Michael Long MD [address] [facility] [address] [place] [address] documented as of this encounter Visit Diagnoses Not on filedocumented in this encounter Care Teams Heat Curer Relationship Specialty Start Date End Date Pcp, No PCP - General General Medicine 03/04/19 03/02/24 Brett Sharma MD [address] [place] [address] PCP - General Family Medicine 03/03/24 documented as of this encounter
--- OUTSIDE RECORDS SUMMARY | 2024-07-27 11:59 | XMS_ITS ---
Author Organization [facility] Address [address] [place] [address] Care Team Providers Care Semiconductor Testing Group Leader Name Role Phone Rylee Dang Primary Care Provider Raúl Turner Jr [phone] REASON FOR VISIT Please lock 11-28-2023 office note. Encounters Encounter Location Date Provider Diagnosis [facility] [address] [place] [address] [place] [address] 12/31/2023 Raúl Pike Jr Plan Of Treatment Next Appt Details Provider Name:Raúl arteaga Jr, 09/08/2024 08:20:00 AM, [address] [place] [address] , [place], [place], [phone], Progress Notes * JULIENNE WINNIDOB:1975 ( 48 yo F)Acc No.[id number]:12/31/2023 Patient:?ONDINA WINN :1975???Age:48 Y???Sex:Female Address:[address], [place], [address] * true * Date:? Generated for Chitra ordaz/Consuelo/eTransmitting on:?07/27/2024 11:59 AM EDT
--- OUTSIDE RECORDS SUMMARY | 2024-07-27 11:59 | XMS_ITS ---
Author Organization [facility] Address [address] [place] [address] Care Team Providers Care Office Assistant Receptionist Name Role Phone Rylee Dang Primary Care Provider Raúl Turner Jr REASON FOR VISIT ultrasound Encounters Encounter Location Date Provider Diagnosis [facility] [address] [place] [phone] 01/02/2024 Raúl Pike Jr Plan Of Treatment Next Appt Details Provider Name:Raúl arteaga Jr, 09/08/2024 08:20:00 AM, [address] [place] [address] , [place], [place], [phone], Progress Notes * BRYON WINNB:1975 ( 48 yo F)Acc No.[id number]:01/02/2024 Patient:?ONDINA WINN :1975???Age:48 Y???Sex:Female Address:[address], [place], [address] * true * Date:? Generated for Printi ng/Jorjeg/eTransmitting on:?07/27/2024 11:58 AM EDT
[2024-07-27 12:07] LABS: TSH reflex Free T4 0.83 uIU/mL (0.32-4.0); Vitamin D 25-OH Total 34.7 ng/mL (>30)
[2024-07-27 15:11] LABS: Alanine Aminotransferase 41 U/L (0-31); Albumin Level 4.1 g/dL (3.5-5.0); Alkaline Phosphatase 52 U/L (39-117); Anion Gap 11 (12-20); Aspartate Amino Transferase 24 U/L (5-31); Bilirubin Total 0.4 mg/dL (0.0-1.0); Blood Urea Nitrogen 13 mg/dL (9-16); Calcium 8.8 mg/dL (8.4-10.2); Carbon Dioxide 24 mmol/L (22-29); Chloride 110 mmol/L (96-108); Cholesterol 157 mg/dL (<200); Estimated Glomerular Filt Rate > 60; Glucose Fasting 90 mg/dL (60-99); HDL Cholesterol 38 mg/dL (>40); LDL Cholesterol Calculated 107 mg/dL (<100); Potassium 4.3 mmol/L (3.3-5.1); Sodium 141 mmol/L (135-145); Total Protein 6.6 g/dL (6.5-8.0); Triglycerides 63 mg/dL (<150)
[2024-07-28 22:24] LABS: Rubella IgG Antibody 1.91 Index; Rubeola IgG (Measles) >300.00 AU/mL
== END 2024-07-27 10:14 | disposition home or self-care (01) ==
LOC: HO.LAB 10:13
PROVIDERS: PCP Nurse Practitioner Family; Visit Provider Nurse Practitioner Family
DX: Z00.00 Encounter for general adult medical examination without abnormal findings (principal); Z28.39 Other underimmunization status; M54.50 Low back pain, unspecified; M47.812 Spondylosis without myelopathy or radiculopathy, cervical region
CPT/HCPCS: 36415; 72040; 72100; 80053; 80061; 81003; 82306; 84443; 85025; 86735; 86762; 86765

== ENCOUNTER → 2024-07-27 10:33 | Outpatient (BNV) | payer OTHER, SELFPAY | PROVIDERS: PCP Nurse Practitioner Family; Visit Provider Radiology Diagnostic Radiology | DX: M54.2 Cervicalgia (principal); M54.50 Low back pain, unspecified | CPT/HCPCS: 72040; 72100 ==

== ENCOUNTER 2024-09-08 07:07 | Day surgery (SDC) | payer OTHER, SELFPAY ==
[2024-09-04 13:16] VITALS: BMI 25.9
--- NOTE | 2024-09-07 12:07 | HO.ANESPROP2 ---
Documented by User: Faiza Campbell NP 09/07/24 12:09 HPI - Anesthesia Eval Consult details Narrative: 48yo F for Upper Endoscopy PMFSH Active Problems Active Problems: All Active Problems Cervical pain (neck) (Acute) Lower back pain (Acute) Immunizations incomplete (Acute) Pre-op evaluation (Acute) Fatigue (Acute) Fibroids (Acute) Tachycardia (Acute) Viral illness (Acute) Neck strain (Acute) Upper respiratory tract infection (Acute) Physical exam (Acute) Asthma (Acute) Barretts esophagus (Acute) Hemochromatosis (Acute) Nodular thyroid disease (Acute) Past Medical History Medical History Hernia GERD (gastroesophageal reflux disease) Thyroid cancer Elevated liver function tests Barretts esophagus Enlarged thyroid MVP (mitral valve prolapse) Fibroadenoma of left breast Renal cyst Hepatic hemangioma Hepatic adenoma Asthma Hemochromatosis Nodular thyroid disease Family History Family History Father HTN (hypertension) Type 2 diabetes mellitus High cholesterol Ulcerative colitis Mother Pulmonary embolism Multiple myeloma Maternal Grandmother Diabetes mellitus CVD (cardiovascular disease) Maternal Grandfather CVD (cardiovascular disease) Paternal Grandfather Substance use disorder Paternal Grandmother Uterine cancer Maternal Uncle CVD (cardiovascular disease) Substance use disorder Sister No problems noted. Son No problems noted. Daughter No problems noted. Family history of problems with anesthesia: No Surgical History Surgical History Hx of prior ablation treatment Hx of partial thyroidectomy History of esophagogastroduodenoscopy (EGD) H/O colonoscopy H/O thyroidectomy History of tonsillectomy and adenoidectomy History of section History of Problems with Anesthesia: No Social History Social History Housing: House Alcohol intake: current Alcohol intake frequency: holidays/special occasions only Patient Tobacco Use Status: Never used Tobacco e-Cigarette/Vaping Use: Never Used Second Hand Smoke Exposure: No Have you been hit, kicked, punched, or otherwise hurt by someone within the past year? If so, by whom?: No Are you DNR?: No Advance Directives: No Advance Directives Information Provided: Yes FDLMP: 2 weeks ago service: No Current occupational status: employed Current occupation: [employer] Current occupational exposures/hazards: No Cognitive needs: No Hearing needs: No Vision needs: No Meds Allergies Allergy/AdvReac Type Severity Reaction Status Date / Time hydrocodone [HYDROCODONE] Allergy Intermediate HIVES Verified 07/23/24 10:23 amoxicillin [Augmentin] Allergy Unknown unknown Verified 07/23/24 10:23 chlorhexidine Allergy Unknown unknown Verified 07/23/24 10:23 clavulanic acid [Augmentin] Allergy Unknown unknown Verified 07/23/24 10:23 doxycycline Allergy Unknown anaphylaxis Verified 07/23/24 10:23 ibuprofen [IBUPROFEN] Allergy Unknown HIVES Verified 07/23/24 10:23 meperidine [Demerol] Allergy Unknown unknown Verified 07/23/24 10:23 morphine [MORPHINE] Allergy Unknown HIVES Verified 07/23/24 10:23 acetaminophen Allergy Anaphylaxis Verified 09/08/24 07:46 cephalexin [From Keflex] Allergy Anaphylaxis Verified 09/08/24 07:31 latex Allergy Unknown Verified 09/04/24 13:22 prednisone Allergy neuropathy Verified 07/23/24 10:23 oxycodone [From PERCOCET] AdvReac Unknown HIVES Verified 07/23/24 10:23 Home Medications ?Medication ?Instructions ?Recorded ?Confirmed ?Last Taken ?Type budesonide-formoterol HFA 160 2 puff inhalation BID 04/04/22 09/04/24 09/08/24 History mcg-4.5 mcg/actuation aerosol inhaler (Symbicort) lifitegrast 5 % eye drops in a 1 drp ophthalmic (eye) BID 09/27/22 09/04/24 Unknown History dropperette (Xiidra) esomeprazole magnesium 40 mg 40 mg PO DAILY 06/27/23 09/04/24 09/08/24 History capsule,delayed release levothyroxine 125 mcg tablet 125 mcg PO DAILY 07/23/24 09/04/24 09/08/24 History albuterol sulfate 90 mcg/actuation 2 puff inhalation Q6H PRN 09/04/24 09/04/24 Unknown History aerosol inhaler (Ventolin HFA) Shortness Of Breath Or Wheezing calcitriol 0.25 mcg capsule 0.25 mcg PO DAILY 09/04/24 09/04/24 Unknown History cetirizine 10 mg tablet (Zyrtec) 10 mg PO DAILY 09/08/24 09/08/24 Unknown History montelukast 10 mg tablet 10 mg PO DAILY 09/08/24 09/08/24 Unknown History (Singulair) Exam Height,Weight and Vital Signs: Height 5 ft 2.5 in Weight 65.317 kg Assessment and Plan Assessment Anesthesia Assessment: Chart Reviewed Final Anesthetic Review Family History of Problems with Anesthesia: No History of Problems with Anesthesia: No Documented by User: Modesta Richard MD 09/08/24 07:53 PMFSH Past Medical History Medical History Hernia GERD (gastroesophageal reflux disease) Thyroid cancer Elevated liver function tests Barretts esophagus Enlarged thyroid MVP (mitral valve prolapse) Fibroadenoma of left breast Renal cyst Hepatic hemangioma Hepatic adenoma Asthma Hemochromatosis Nodular thyroid disease Family History Family History Father HTN (hypertension) Type 2 diabetes mellitus High cholesterol Ulcerative colitis Mother Pulmonary embolism Multiple myeloma Maternal Grandmother Diabetes mellitus CVD (cardiovascular disease) Maternal Grandfather CVD (cardiovascular disease) Paternal Grandfather Substance use disorder Paternal Grandmother Uterine cancer Maternal Uncle CVD (cardiovascular disease) Substance use disorder Sister No problems noted. Son No problems noted. Daughter No problems noted. Surgical History Surgical History Hx of prior ablation treatment Hx of partial thyroidectomy History of esophagogastroduodenoscopy (EGD) H/O colonoscopy H/O thyroidectomy History of tonsillectomy and adenoidectomy History of section Social History Social History Housing: House Alcohol intake: current Alcohol intake frequency: holidays/special occasions only Patient Tobacco Use Status: Never used Tobacco e-Cigarette/Vaping Use: Never Used Second Hand Smoke Exposure: No Have you been hit, kicked, punched, or otherwise hurt by someone within the past year? If so, by whom?: No Are you DNR?: No Advance Directives: No Advance Directives Information Provided: Yes FDLMP: 2 weeks ago service: No Current occupational status: employed Current occupation: [employer] Current occupational exposures/hazards: No Cognitive needs: No Hearing needs: No Vision needs: No Meds Allergies Allergy/AdvReac Type Severity Reaction Status Date / Time hydrocodone [HYDROCODONE] Allergy Intermediate HIVES Verified 07/23/24 10:23 amoxicillin [Augmentin] Allergy Unknown unknown Verified 07/23/24 10:23 chlorhexidine Allergy Unknown unknown Verified 07/23/24 10:23 clavulanic acid [Augmentin] Allergy Unknown unknown Verified 07/23/24 10:23 doxycycline Allergy Unknown anaphylaxis Verified 07/23/24 10:23 ibuprofen [IBUPROFEN] Allergy Unknown HIVES Verified 07/23/24 10:23 meperidine [Demerol] Allergy Unknown unknown Verified 07/23/24 10:23 morphine [MORPHINE] Allergy Unknown HIVES Verified 07/23/24 10:23 acetaminophen Allergy Anaphylaxis Verified 09/08/24 07:46 cephalexin [From Keflex] Allergy Anaphylaxis Verified 09/08/24 07:31 latex Allergy Unknown Verified 09/04/24 13:22 prednisone Allergy neuropathy Verified 07/23/24 10:23 oxycodone [From PERCOCET] AdvReac Unknown HIVES Verified 07/23/24 10:23 Home Medications ?Medication ?Instructions ?Recorded ?Confirmed ?Last Taken ?Type budesonide-formoterol HFA 160 2 puff inhalation BID 04/04/22 09/04/24 09/08/24 History mcg-4.5 mcg/actuation aerosol inhaler (Symbicort) lifitegrast 5 % eye drops in a 1 drp ophthalmic (eye) BID 09/27/22 09/04/24 Unknown History dropperette (Xiidra) esomeprazole magnesium 40 mg 40 mg PO DAILY 06/27/23 09/04/24 09/08/24 History capsule,delayed release levothyroxine 125 mcg tablet 125 mcg PO DAILY 07/23/24 09/04/24 09/08/24 History albuterol sulfate 90 mcg/actuation 2 puff inhalation Q6H PRN 09/04/24 09/04/24 Unknown History aerosol inhaler (Ventolin HFA) Shortness Of Breath Or Wheezing calcitriol 0.25 mcg capsule 0.25 mcg PO DAILY 09/04/24 09/04/24 Unknown History cetirizine 10 mg tablet (Zyrtec) 10 mg PO DAILY 09/08/24 09/08/24 Unknown History montelukast 10 mg tablet 10 mg PO DAILY 09/08/24 09/08/24 Unknown History (Singulair) Exam Airway Mallampati Class: II TM Dist: >3cm Neck ROM: Full Heart: rrr Lungs: cta Assessment and Plan Assessment Anesthesia Assessment: Anesthesia Plan Discussed Final Anesthetic Review NPO: Yes ASA Class: II Final Preanesthetic Review: No Changes in Pt Med Stat, Meds/Allgs Chart Reviewed, Consent Obtained/Reviewed and Anes Risks/Benef Reviewed Patient Risk: Low Procedure Risk: Low Anesthetic Plan Anesthetic Plan: MAC: Disposition: Standard PACU
[2024-09-08 07:09] VITALS: BP 104/60; PULSE 76; RESP 18; TEMP 36.9; O2SAT 97
[2024-09-08 07:23] LABS: UPreg QC Valid YES; Urine Pregnancy NEGATIVE (NEGATIVE)
[2024-09-08] MEDS: Lactated Ringers 1,000 ML 100 ML IVCONT (07:39)
--- NOTE | 2024-09-08 07:59 | MHC.SHP ---
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 Details of Present Illness: see H&P no changes Relevant Family History (Specify if Yes): No Relevant Social History: None Present Medications: see Short Stay Collaborative assessment Medical History: No relevant PMH History of Previous Operations: No relevant previous surgery Allergies: Allergies Allergy/AdvReac Type Severity Reaction Status Date / Time hydrocodone [HYDROCODONE] Allergy Intermediate HIVES Verified 07/23/24 10:23 amoxicillin [Augmentin] Allergy Unknown unknown Verified 07/23/24 10:23 chlorhexidine Allergy Unknown unknown Verified 07/23/24 10:23 clavulanic acid [Augmentin] Allergy Unknown unknown Verified 07/23/24 10:23 doxycycline Allergy Unknown anaphylaxis Verified 07/23/24 10:23 ibuprofen [IBUPROFEN] Allergy Unknown HIVES Verified 07/23/24 10:23 meperidine [Demerol] Allergy Unknown unknown Verified 07/23/24 10:23 morphine [MORPHINE] Allergy Unknown HIVES Verified 07/23/24 10:23 acetaminophen Allergy Anaphylaxis Verified 09/08/24 07:46 cephalexin [From Keflex] Allergy Anaphylaxis Verified 09/08/24 07:31 latex Allergy Unknown Verified 09/04/24 13:22 prednisone Allergy neuropathy Verified 07/23/24 10:23 oxycodone [From PERCOCET] AdvReac Unknown HIVES Verified 07/23/24 10:23 Review of Systems Sugical H&P ROS: Negative: Constitution, Cardiovascular, Respiratory, Neurological, Psychiatric, Hem-Onc, Allergic/Immunologic, Gastrointestinal, Genitourinary, Musculoskeletal, Integumentary, Endocrine and Eyes/Ears/Nose/Throat Exam Surgical H&P Exam: Normal: HEENT, Normal: Heart, Normal: Lungs, Normal: Extremities, Normal: Abdomen, Normal: Skin and Normal: Neurological Plan Diagnosis/Plan: Unchanged I have reviewed the history and physical and performed a pertinent physical examination on my patient. No changes have occurred unless specified. Time Spent With Patient Time: Total time managing care of this patient today ____ minutes.
[2024-09-08] MEDS: Albuterol Sulfate (0.083%) 2.5 MG/3 ML VIAL.NEB INHALE (08:02)
[2024-09-08 08:03] VITALS: PULSE 67; RESP 18; O2SAT 97
--- NOTE | 2024-09-08 08:20 | PC.NURSE ---
pt received resp tx ls clear prior no sob resp easy and reg pt sts to anesthesia didnot take allergy meds has a tickle in throat with clearing of throat no resp distress noted pwd speaking in full sentences
[2024-09-08 09:05] VITALS: BP 125/80; PULSE 81; RESP 16; TEMP 36.6; O2SAT 96
[2024-09-08 09:20] VITALS: BP 101/49; PULSE 78; RESP 16; O2SAT 98
--- NOTE | 2024-09-08 09:29 | OP_ITS ---
DATE OF SERVICE: 09/08/2024 SURGEON: Raúl Pike MD PREOPERATIVE DIAGNOSIS: POSTOPERATIVE DIAGNOSIS: PROCEDURE PERFORMED: Upper endoscopy with biopsy. ESTIMATED BLOOD LOSS: COMPLICATIONS: ANESTHESIA: Monitored anesthesia care. 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 DESCRIPTION OF PROCEDURE: A history and physical was performed. The risks and benefits of the procedure were explained to the patient. Informed consent was obtained. The patient was placed in the left lateral decubitus position. The Olympus video gastroscope was introduced into the esophagus, stomach, and duodenum. Examination was performed. The scope was removed. She tolerated the procedure well and was returned to the recovery area in stable condition. FINDINGS: Esophagus: The esophagus showed an irregular EG junction. This was biopsied. There were no raised lesions or ulcerated areas. Stomach: The stomach showed no evidence of masses, ulcers, or polyps. There was a small sliding hiatal hernia. Duodenum: The bulb and 2nd portion were normal. IMPRESSION: Gamino esophagus. RECOMMENDATION: Follow up the biopsy results. Raúl Pike MD BC/MODL / [id number] MTDD
[2024-09-08 09:35] VITALS: BP 104/64; PULSE 78; RESP 20; TEMP 36.8; O2SAT 98
== END 2024-09-08 10:00 | disposition home or self-care (01) ==
PROVIDERS: Nurse Practitioner; PCP Nurse Practitioner Family; Visit Provider Internal Medicine Gastroenterology
PROC: 0DJ08ZZ Inspection of Upper Intestinal Tract, Via Natural or Artificial Opening Endoscopic (ICD-10-PCS; CPT 43235; principal; 2024-09-08 08:20)
DX: K22.70 Barrett's esophagus without dysplasia (principal); K22.89 Other specified disease of esophagus; K44.9 Diaphragmatic hernia without obstruction or gangrene; K21.9 Gastro-esophageal reflux disease without esophagitis; D18.03 Hemangioma of intra-abdominal structures; E83.119 Hemochromatosis, unspecified; J45.909 Unspecified asthma, uncomplicated; C73 Malignant neoplasm of thyroid gland; Z79.899 Other long term (current) drug therapy
CPT/HCPCS: 43239; 81025; 88305; 88313; 94640; J2003; J2704

== ENCOUNTER 2024-11-20 08:02 | Outpatient (RCR) | payer OTHER, SELFPAY ==
--- NOTE | 2024-09-11 12:54 | MHC.PT.EP ---
[facility] [place] Office [place] Office [place] Office [address] Rosie Hodge [address] [phone] F: [phone] F: [phone] F: [phone] F: [phone] Physical Therapy Plan of Care Date of Evaluation: 09/11/24 Date of Surgery: Diagnosis: LOWER BACK PAIN Assessment: 48 YO FEMALE REF TO PT W H/O Rt SI Jt ACHE , BUT HER CONCERN IS AKIL DISTAL LEs NUMBNESS ONSET WITH RUNNING (ON A TREADMILL) 3 MILES , PROGRESSIVE OVER THE PAST YEAR - OF IMPORTANCE, SHE HAD AN UMBILICAL HERNIA REPAIR IN 02/2024 WITH A LARGE HORIZONTAL LOWER ABDOM INCISIONAL SCAR. 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 OBJECTIVE FINDINGS: DECR POSTURAL AWARENESS, (+) LUMBOPELVIC ASYMM W INCR LEFT LUMBAR PS TENSION AND Rt QL RESTRICTION; WEAK ABDOM/ GLUTES; AND ACTIVITY SPECIFIC ONSET OF DISTAL LEs NUMBNESS W RUNNING. SHE IS INDEP W ADLs- SHE HAS A SQUAT TO THE FLOOR W (+) COMPENSATION FOR TIGHT CALVES/ HIPS. SHE DENIES BLADDER/ BOWEL SIGNS AND SXS. THE Pt IS MOTIVATED FOR PT- WE DISCUSSED POC AND SHE AGREES TO PROCEED W OUT-Pt PT. 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 Manual therapy to restore motion and function. Therapeutic exercise to improve strength and flexibility. Neuromuscular re-education for posture and balance. Therapeutic activities to return to functional activities of daily living. Electronically signed by: PIYUSH TOTH,PT Please sign and return to therapist. Thank you for your referral.
--- NOTE | 2024-11-26 09:27 | MHC.PT.DC ---
[facility] [place] Office [place] Office [place] Office [address] Rosie Hodge [address] [phone] F: [phone] F: [phone] F: [phone] F: [phone] Physical Therapy Discharge Report Diagnosis: LOWER BACK PAIN Date of Surgery: Date of Evaluation: 09/11/24 Date of Discharge: 11/26/24 Treatments to Date: 11 Cancellations to Date: 4 No Shows to Date: 1 Discharge Status: Achieved Goals Improved Function Independent with HEP Discharge Summary: ONDINA HAS PROGRESSED NICELY IN PT ADDRESSING HER LBP-> SHE HAS MADE SIGNIF IMPROVEMENTS WITH PT IN IMPROVING STRENGTH, SELF-SX MGMT TECHN, POSTURAL AWARENESS, AND SCAR/ SOFT TISSUE MOBILITY. SHE HAS COMPLETED 11 SESSIONS , IS INDEP W HEP-> SHE HAS MET HER PT GOALS AND AGREES W D/C AT THIS TIME. Electronically signed by: PIYUSH TOTH,PT Please sign and return to therapist. Thank you for your referral.
== END 2024-11-26 09:28 | disposition home or self-care (01) ==
LOC: HO.PT 08:02
PROVIDERS: PCP Nurse Practitioner Family; Visit Provider Nurse Practitioner Family
DX: M54.50 Low back pain, unspecified (principal)
CPT/HCPCS: 97110; 97112; 97140; 97162; 97530

== ENCOUNTER 2024-12-28 15:11 | Outpatient (REF) | payer OTHER, SELFPAY ==
--- OUTSIDE RECORDS SUMMARY | 2023-08-19 06:40 | XMS_ITS ---
Author Organization [facility] Address [address] [place] [address] Care Team Providers Care Debeader Name Role Phone Rylee Dang Primary Care Provider Raúl Turner Jr [phone] REASON FOR VISIT Patient presents today for hepatic hemangioma Encounters Encounter Location Date Provider Diagnosis [facility] [address] [place] [address] 08/19/2023 Raúl Pike Jr Plan Of Treatment No Information Progress Notes * BRYON WINNB:1975 ( 49 yo F)Acc No.[id number]:08/19/2023 Progress Notes Patient: ONDINA VILLEDA Provider: Ulices Pike MD :1975 A ge:47 Y S ex:Female Date:08/19/2023 Address:[address] [facility] Pcp:Rylee Dang Subjective: * Chief Complaints: * 1 . Patient presents today for hepatic hemangioma. * Medical History: Objective: * Vitals: Assessment: Plan: * Treatment: * * The named appointment provid er may or may not be the originator of this progress note, and it is not deemed complete until electronically signed by the appointment provider. Sign off status: Pending * Provider: Ulices Pike MD Date: 0 08/19/2023 Generated for Chitra ordaz/Consuelo/eTransmitting on: 12/28/2024 06:21 PM EDT
--- OUTSIDE RECORDS SUMMARY | 2024-09-08 04:20 | XMS_ITS ---
Author Organization 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
--- OUTSIDE RECORDS SUMMARY | 2024-12-24 15:39 | XMS_ITS | Encounter Summary ---
Author Organization [facility] Address [address] [facility] [address] [place] [address] Phone Care Team Providers Care Textile Pin Worker Name Role Phone Arturo Lawrence MD, PhD Unavailable [phone] Brett Sharma NP Primary Care Provider + Encounter Details Date Type Department Care Team (Latest Contact Info) Description 12/24/2024 3:39 PM EDT - 12/24/2024 11:59 PM EDT Hospital Encounter [facility] 30 [place] [address] Miki Blackwood MD 15 [place] [address] [email or web address] Discharge Disposition: Home or Self Care Social History Tobacco Use Types Packs/Day Years Used Date Smoking Tobacco: Never Smokeless Tobacco: Never Alcohol Use Standard Drinks/Week Comments Yes 3 (1 standard drink = 0.6 oz pur e alcohol) socially Education Answer Date Recorded Are you interested in more education? Not on kayden e 08/28/2022 Are you concerned about learning? Not on file 08/28/2022 No 08/28/2022 No 08/28/2022 Digital Access Answer Date Recorded No 09/14/2022 No 09/14/2022 Reliable internet access at home? Not on file 09/14/2022 Device with a working camera? Not on file Intimate Partner Violence Answer Date R ecorded Are you denied basic needs s uch as food, clothing, or medical care? No 03/11/2024 In the past 12 months have y ou been in a relationship with a person who hurts, threatens, or tries to control you? No 03/11/2024 Are you denied basic needs s uch as food, clothing, or medical care? No 03/11/2024 In the past 12 months have y ou been in a relationship with a person who hurts, threatens, or tries to control you? No 03/11/2024 Comments No Sex and Gender Information Value Date Recorded Sex Assigned at Female 06/23/2019 12:35 PM EST Legal Sex Female 5:25 PM EST Gender Identity Female 06/23/2019 12:35 PM EST Sexual Orientation Straight 06/23/2019 12 :35 PM EST documented as of this encounter Medications at Time of Discharge albuterol 90 mcg/actuation inhaler Inhale 2 puffs into the lungs every 6 (six) hours as needed for wheezing. 1 Inhaler 06/23/2019 budesonide-formo terol (SYMBICORT) 160-4.5 mcg/actuation inhaler 2 (two) times a day. 08/18/2021 calcium carbonate (TUMS ULTRA) 1,000 mg (400 mg elemental) Chew Take 1,000 mg by mouth daily. celecoxib (CELEBREX) 100 MG capsule TAKE 1 CAPSULE BY MOUTH EVERY DAY. BRING FOR CHALLENGE 09/24/2023 levalbuterol (XOPENEX HFA) 45 mcg/actuation inhaler Inhale 1-2 puffs into the lungs every 4 (four) hours as needed for wheezing. levothyroxine (SYNTHROID, LEVOTHROID) 125 MCG tablet Take 1 tablet (125 mcg total) by mouth every morning. 90 tablet 3 09/08/2024 montelukast (SINGULAIR) 10 mg tablet take 1 tablet by mouth everyday at bedtime 11/12/2022 pantoprazole (PROTONIX) 40 MG tablet Take 1 tablet by mouth every morning. 08/09/2023 XIIDRA 5 % opthalmic solution 1 drop 2 (two) times a day. 12/21/2022 documented as of this encounter Plan of Treatment Upcoming Encounters Date Type Department Care Team (Late st Contact Info) Description 12/31/2024 3:30 PM EDT Blood Draw [facility] [address] [facility], 7th Floor, [address] [place] [address] Arturo Lawrence MD, PhD [address] [place] [address] for [address] [address] [email or web address] 12/31/2024 4:40 PM EDT Office Visit [facility] [address] [place] [address], 7th Floor, [address] [place] [address] Arturo Lawrence MD, PhD [address] [place] [address] [address] [email or web address] 01/11/2025 9:40 AM EDT Office Visit [facility] [address] [place] [address], [address] [address] Miki Blackwood MD [address] [place] [address] [email or web address] 01/15/2025 9:30 AM EDT Office Visit [facility] Otology [address] [address] Arturo Bunn MD, PhD [address] [place] [address] [email or web address] 01/15/2025 11:30 AM EDT Evaluation [facility] Audiology [address] [address] Arturo Bunn MD, PhD [address] [place] [address] [email or web address] Alecia Hogan E[phone] [place] [address] [email or web address] 04/29/2025 10:30 AM EST Office Visit [facility] [address] [facility], 5th [place] [address] Ranjit Morley MD [address] [address] MARCELA@[email or web address] 09/24/2025 10:30 AM EDT Office Visit [facility] [address] [facility], [address] [place] [address] Magnus Perez MD 55 [place] [address] [email or web address] documented as of this encounter Procedures Procedure Name Priority Date/Time Associated Diagnosis Comments THYROGLOBULIN, TUMOR MARKER Routine 12/24/2024 4:54 PM EDT Hypothyroidism, postop Thyroid cancer FREE T3 Routine 12/24/2024 4:54 PM EDT Hypothyroidism, postop Thyroid cancer TSH Routine 12/24/2024 4:54 PM EDT Hypothyroidism, postop Thyroid cancer FREE T4 Routine 12/24/2024 4:54 PM EDT Hypothyroidism, postop Thyroid cancer PHOSPHORUS Routine 12/24/2024 4:54 PM EDT Hypocalcemia PARATHYROID HORMONE (PTH) Routine 12/24/2024 4:54 PM EDT Hypocalcemia CALCIUM Routine 12/24/2024 4:54 PM EDT Hypocalcemia ALBUMIN Routine 12/24/2024 4:54 PM EDT Hypocalcemia documented in this encounter Results * Albumin (12/24/2024 4:54 PM EDT) ALBUMIN 4.6 3.9 - 4.8 g/dL [facility] Blood 12/24/2024 4:54 PM EDT 12/24/2024 5:01 PM EDT Miki Blackwood MD LAB BLOOD ORDERABLES Final Result Performing Organization Address City/[facility]/ZIP Co de Phone Number [address] [address] * Phosphorus (12/24/2024 4:54 PM EDT) PHOSPHORUS 3.0 2.7 - 4.5 mg/dL [facility] Blood 12/24/2024 4:54 PM EDT 12/24/2024 5:01 PM EDT Miki Blackwood MD LAB BLOOD ORDERABLES Final Result Performing Organization Address City/[facility]/ZIP Co de Phone Number [address] [address] * Thyroglobulin, Tumor Marker (12/24/2024 4:54 PM EDT) Pathologist [facility] THYROGLOBULIN 0.5 < or = 33 ng/mL [facility] THYROGLOBULIN AB <1.8 <1.8 IU/mL [facility] THYROGLOBULIN INTRP SEE NOTE [facility] Comment: (NOTE) Thyroglobulin (Tg) reference intervals are for patients with an intact thyroid and not for patients who have had surgery for thyroid cancer. Tg reference intervals in patients that have undergone thyroidectomy or any treatment for follicular thyroid cancer are dependent on the residual mass of the thyroid tissue after surgery. Tg results, regardless of concentration, should not be interpreted as absolute evidence for the presence or absence of papillary or follicular thyroid cancer. This result needs to be interpreted in the context of the clinical evaluation. ADDITIONAL INFORMATION PLEASE NOTE: The given cutoff of <1.8 IU/mL is for the detection of potential thyroglobulin antibody (TgAb) interference in thyroglobulin immunoassays. A thyroglobulin antibody (TgAb) reference cutoff of <4.0 IU/mL may be more suitable for the evaluation of autoimmune thyroiditis. The thyroglobulin and thyroglobulin antibody testing methods are immunoenzymatic assays manufactured by [employer] and performed on the [employer] DXI 800. Values obtained from different assay methods or kits may be different and cannot be used interchangeably. The results cannot be interpreted as absolute evidence for the presence or absence of malignant disease. Blood 12/24/2024 4:54 PM EDT 12/24/2024 5:01 PM EDT Miki Blackwood MD LAB BLOOD ORDERABLES Final Result Performing Organization Address City/[facility]/ZIP Co de Phone Number [facility] [address] [place] [address] * Free T3 (12/24/2024 4:54 PM EDT) FREE T3 2.9 2.0 - 4.4 pg/mL [facility] Blood 12/24/2024 4:54 PM EDT 12/24/2024 5:01 PM EDT Miki Blackwood MD LAB BLOOD ORDERABLES Final Result Performing Organization Address City/[facility]/ZIP Co de Phone Number [address] [address] * Free T4 (12/24/2024 4:54 PM EDT) FREE T4 1.6 0.9 - 1.7 ng/dL [facility] Blood 12/24/2024 4:54 PM EDT 12/24/2024 5:01 PM EDT Miki Blackwood MD LAB BLOOD ORDERABLES Final Result Performing Organization Address City/[facility]/ZIP Co de Phone Number [address] [address] * TSH (12/24/2024 4:54 PM EDT) TSH 0.47 0.27 - 4.20 uIU/mL [facility] Blood 12/24/2024 4:54 PM EDT 12/24/2024 5:01 PM EDT us Miki Blackwood MD LAB BLOOD ORDERABLES Final Result [address] [address] * Calcium (12/24/2024 4:54 PM EDT) CALCIUM 8.9 8.4 - 10.3 mg/dL [facility] Blood 12/24/2024 4:54 PM EDT 12/24/2024 5:01 PM EDT us Miki Blackwood MD LAB BLOOD ORDERABLES Final Result [address] [address] * Parathyroid hormone (PTH) (12/24/2024 4:54 PM EDT) PARATHYROID HORMONE 39 15 - 65 pg/mL [facility] Blood 12/24/2024 4:54 PM EDT 12/24/2024 5:01 PM EDT Miki Blackwood MD LAB BLOOD ORDERABLES Final Result [address] [address] documented in this encounter Visit Diagnoses Diagnosis Hypothyroidism, postop Thyroid cancer Malignant neoplasm of thyroid gland Hypocalcemia documented in this encounter Care Teams Textile Pin Worker Relationship Specialty Start Date End Date Brett Sharma NP [address] [facility] [place] [address] PCP - General Family Medicine 08/16/21 Arturo Lawrence MD, PhD [address] [place] [address] Outpatient CareYAW [address]B [place] [address] [email or web address] Hematology and Oncology 07/06/17 documented as of this encounter Additional Source Comments The information contained in this document represents components of the legal health record. It is not the complete legal health record.[facility]
--- OUTSIDE RECORDS SUMMARY | 2024-12-28 02:45 | XMS_ITS | Encounter Summary ---
Author Organization [facility] Address [address] [place] [address] Phone Care Team Providers Care Manager Of Clinical Name Role Phone Arturo Lawrence MD, PhD Unavailable [phone] Brett Sharma NP Primary Care Provider + Reason for Visit * Reason Comments Allergic Reaction Encounter Details Date Type Department Care Team (Late st Contact Info) Description 12/28/2024 2:45 AM EDT - 12/28/2024 6:20 AM EDT Emergency [facility] [address] [place] [address] Jairo Young, DO [address] [place] [address] [email or web address] Discharge Disposition: Home or Self Care Social [...] as food, clothing, or medical care? No 12/28/2024 In the past 12 months have y ou been in a relationship with a person who hurts, threatens, or tries to control you? No 12/28/2024 Are you denied basic needs s uch as food, clothing, or medical care? No 12/28/2024 In the past 12 months have y ou been in a relationship with a person who hurts, threatens, or tries to control you? No 12/28/2024 Comments No Sex and Gender Information Value Date Recorded Sex Assigned at Female 06/23/2019 12:35 PM EST Legal Sex Female 5:25 PM EST Gender Identity Female 06/23/2019 12:35 PM EST Sexual Orientation Straight 06/23/2019 12 :35 PM EST documented as of this encounter Last Filed Vital Signs Vital Sign Reading Time Taken Comments Blood Pressure 101/58 12/28/2024 5:30 AM EDT Pulse 95 12/28/2024 12:16 AM EDT Temperature 36.2 C (97.2 F) 12/28/2024 5:30 AM EDT Respiratory Rate 20 12/28/2024 12:16 AM EDT Oxygen Saturation 100% 12/28/2024 5:30 AM EDT Inhaled Oxygen Concentration - - Weight 66.2 kg (146 lb) 12/28/2024 12:16 AM EDT Height 162.6 cm (5' 4 ) 12/28/2024 12:16 AM EDT Body Mass Index 25.06 12/28/2024 12:16 AM EDT documented in this encounter Functional Status * Calculated C-SSRS Risk Score (Lifetime/Recent) Answer Date of Assessment Author No Risk Indicated 12/28/2024 12:18 AM EDT Rylee Carl RN * [place] Suicide Severity Rating Scale (Screener/Recent Self-Report) Question Answer Date of Assessment Author 1. Wish to be (Past 1 Month) No 12/28/2024 12:18 AM EDT Rylee Carl RN 2. Non-Specific Active Suicidal Thoughts (Past 1 Month) No 12/28/2024 12:18 AM EDT Rylee Carl RN 6. Suicidal Behavior (Lifetime) No 12/28/2024 12:18 AM EDT Rylee Carl RN documented as of this encounter Discharge Instructions * Attachments The following attachments cannot be sent through Care Everywhere. * Allergic Reaction (Slovak) documented in this encounter Medications at Time of Discharge [...] day. 12/21/2022 documented as of this encounter ED Notes * Ella Romo RN - 12/28/2024 6:16 AM EDT ED Discharge Nursing Note Pt d/c instructions reviewed with no questions or concerns, pt in NAD, breathing even and unlabored, speaking in clear full sentences, ambulates with steady gait * Rylee Carl RN - 12/28/2024 12:15 AM EDT Patient presents reporting anaphylaxis to cinnamon today, took benadryl at 430pm and 1030pm tonight. Patient reports hypersensitivity reaction it comes 12 hours later after taking benadryl . Patientawake, alert, voice hoarse, speech unclear, breathing is equal and unlabored, no hives or skin reaction noted. Patient reporting tightness in throat and lungs. documented in this encounter Plan of Treatment Upcoming Encounters Date Type Department Care Team (Late st Contact Info) Description 12/31/2024 3:30 PM EDT Blood Draw [facility] [address] [place] [address], 7th Floor, [address] [place] [address] Arturo Lawrence MD, PhD [address] [place] [address] for [address] [address] [email or web address] 12/31/2024 4:40 PM EDT Office Visit [facility] [address] [place] [address], 7th Floor, [address] [place] [address] Arturo Lawrence MD, PhD [address] [place] [address] [address] [email or web address] 01/11/2025 9:40 AM EDT Office Visit [facility] [address] [facility], [address] [place] [address] Miki Blackwood MD [address] [place] [address] KALPANA@[email or web address] 01/15/2025 9:30 AM EDT Office Visit [facility] Otology [address] 2nd [place] [address] Arturo Bunn MD, PhD [address] [place] [address] [email or web address] 01/15/2025 11:30 AM EDT Evaluation [facility] Audiology [facility] [address] [facility] 2nd [place] [address] Arturo Bunn MD, PhD [address] [place] [address] [email or web address] EdisonGretaangy YangEron [address] [place] [phone] [email or web address] 04/29/2025 10:30 AM EST Office Visit [facility] [address] [facility], 5th [place] [address] Ranjit Morley MD [address] [address] [email or web address]@[email or web address] 09/24/2025 10:30 AM EDT Office Visit [facility] [address] [facility], [address] [place] [address] Magnus Perez MD 55 [place] [address] [email or web address] documented as of this encounter Visit Diagnoses Diagnosis Allergic reaction, initial encounter- Primary documented in this encounter Administered Medications Inactive Administered Medications - up to 3 most recent administrations Medication Order MAR Action Action Date Dose Rate Site dexAMETHasone (DECADRON) oral solution 10 mg 10 mg, Oral, Once, On 12/28/24 at 0330, For 1 dose, FOR ORAL USE ONLY May administer with food to reduce GI upset. Given 12/28/2024 4:08 AM EDT 10 mg famotidine (PEPCID) tablet 20 mg 20 mg, Oral, Once, On 12/28/24 at 0330, For 1 dose Given 12/28/2024 4:08 AM EDT 20 mg documented in this encounter Active and Recently Administered Medications Times are shown in EDT. Scheduled Medication Order 12/26/2024 12/27/2024 12/28/2024 dexAMETHasone (DECADRON) oral solution 10 mg (COMPLETED) 10 mg, Oral, Once, On Sat12/28/24 at 0330, For 1 dose, FOR ORAL USE ONLY May administer with food to reduce GI upset. 0408 (Given - Provid er: Ella Romo, DANE) famotidine (PEPCID) tablet 20 mg (COMPLETED) 20 mg, Oral, Once, On Sat12/28/24 at 0330, For 1 dose 0408 (Given - Provid er: Ella Romo RN) documented in this encounter Care Teams Manager Of Clinical Relationship Specialty Start Date End Date Brett Sharma NP [address] [facility] [place] [address] PCP - General Family Medicine 08/16/21 Arturo Lawrence MD, PhD [address] [place] [address] [address] [email or web address] Hematology and Oncology 07/06/17 documented as of this encounter Additional Source Comments The information contained in this document represents components of the legal health record. It is not the complete legal health record.[facility]
--- OUTSIDE RECORDS SUMMARY | 2024-12-28 18:21 | XMS_ITS | Encounter Summary ---
Author Organization [facility] Address [address] [facility] [address] [place] [address] Phone Care Team Providers Care Special Events Fundraiser Name Role Phone Arturo Lawrence MD, PhD Unavailable [phone] Bertt Sharma NP Primary Care Provider + Encounter Details Date Type Department Care Team (Late st Contact Info) Description 11/30/2021 Procedure Pass [facility] Cardiology [address] [facility], [address] [place] [id number] Social History Tobacco Use Types Packs/Day Years Used Date Smoking Tobacco: Never Smokeless Tobacco: Never Comments Unknown Sex and Gender Information Value Date Recorded Sex Assigned at Female 06/23/2019 12:35 PM EST Legal Sex Female 5:25 PM EST Gender Identity Female 06/23/2019 12:35 PM EST Sexual Orientation Straight 06/23/2019 12 :35 PM EST documented as of this encounter Plan of Treatment Upcoming Encounters Date Type Department Care Team (Late st Contact Info) Description 12/31/2024 3:30 PM EDT Blood Draw [facility] for [facility] [address] [facility], 7th Floor, [address] [place] [address] Arturo Lawrence MD, PhD [address] [facility] for Outpatient CareYAW [address] [place] [address] [email or web address] 12/31/2024 4:40 PM EDT Office Visit [facility] for [facility]ology [address] [facility], 7th Floor, [address] [place] [address] Arturo Lawrnece MD, PhD [address] [facility] for Outpatient CareYAW [address] [place] [address] [email or web address] 01/11/2025 9:40 AM EDT Office Visit [facility] [address] [facility], [address] [place] [address] Miki Blackwood MD 15 [place] [address] KALPANA@[email or web address] 01/15/2025 9:30 AM EDT Office Visit [facility] Otology [address] [address] Arturo Bunn MD, PhD [address] [place] [address] [email or web address] 01/15/2025 11:30 AM EDT Evaluation [facility] Audiology [address] [address] Arturo Bunn MD, PhD [address] [place] [address] [email or web address] Alecia Hogan [phone] [place] [address] [email or web address] 04/29/2025 10:30 AM EST Office Visit [facility] [address] [facility], 5th [place] [address] Ranjit Morley MD 15 [facility] [address] [place] [address] [email or web address] 09/24/2025 10:30 AM EDT Office Visit [facility] Cardiology Street Practice [address] [facility], [address] [place] [address] Magnus Perez MD 55 [place] [address] [email or web address] documented as of this encounter Visit Diagnoses Not on filedocumented in this encounter Care Teams Special Events Fundraiser Relationship Specialty Start Date End Date Brett Sharma, SELWYN [address] [facility] [place] [id number] PCP - General Family Medicine 08/16/21 Arturo Lawrence MD, PhD [address] [place] [address] [facility] [address] [place] [address] [email or web address] Hematology and Oncology 07/06/17 documented as of this encounter Additional Source Comments The information contained in this document represents components of the legal health record. It is not the complete legal health record.[facility]
--- OUTSIDE RECORDS SUMMARY | 2024-12-28 18:21 | XMS_ITS | Clinical Summary ---
Author Organization [facility] Address [address] [place] [address] Care Team Providers Care Dictaphone Typist Name Role Phone Brett Sharma Primary Care Provider [phone] Allergies Active Allergy Reactions Criticality Noted Date Comments Amoxicillin-Pot Clavulanate Anaphylaxis High 10/19/2013 Cinnamon 12/31/2023 Doxycycline Anaphylaxis High 05/03/2017 Hydrocodone-Acetaminoph en Swelling 05/03/2017 Ibuprofen Anaphylaxis High 12/31/2023 Latex Rash Low 05/21/2019 Meperidine Swelling 05/03/2017 Morphine 09/12/2021 Other Rash Low 04/04/2017 turnips Oxycodone-Acetaminophen Rash,Swelling Low 8 Prednisone Other (See Comments) Medium 08/28/2022 [place] Hives Medium 04/04/2017 Tramadol Itching Low 09/12/2023 [...] 87 04/18/2022 11:10 AM EST Temperature 36.9 C (98.5 F) 09/12/2021 6:42 AM EDT Respiratory Rate 18 09/12/2021 6:42 AM EDT [...] 04/10/2022, 12/22, 10/04/2021 COVID-19 Vaccine ( season) 2024 01/27/2023, 05/27/2020, 04/29/2020 Influenza Vaccine (#1) 2024 , 02/05/2023, 02/19/2022, Additional history exists Preventative Health Evaluation 12/30/2024 12/31/2023, 10/17/2022 Cervical Cancer Screening (Pap Smear) 12/30/2026 12/31/2023 Pneumococcal Vaccine Aged Out 01/06/2021, 11/04/19 21 No longer eligible based on patient's age to complete this topic Hepatitis C Screening Completed 10/17/2022 RSV Ped < 20 months Aged Out No longe r eligible based on patient's age to complete this topic Care Teams Dictaphone Typist Relationship Specialty Start Date End Date Brett Sharma [address] [place] [address] PCP - General Family Medicine 09/11/21
--- OUTSIDE RECORDS SUMMARY | 2024-12-28 18:22 | XMS_ITS | Encounter Summary ---
Author Organization [facility] Address [address] [facility] [address] [place] [address] Phone Care Team Providers Care Side Piece Coverer Name Role Phone Arturo Lawrence MD, PhD Unavailable [phone] Brett Sharam NP Primary Care Provider + Reason for Visit * Reason Onset Date Comments s/p procedure question 10/08/2023 Shannen Hernandez Encounter Details Date Type Department Care Team (Late st Contact Info) Description 10/08/2023 Telephone [facility] Gynecology [address] [facility], 4th Floor, [address] [place] [address] Shannen Hayward MD [address] [place] [address] [email or web address] [place] [email or web address] s/p procedure question (Shannen Hayward) Social History Tobacco Use Types Packs/Day Years [...] with a working camera? Not on file Comments No Sex and Gender Information Value [...] Description 12/31/2024 3:30 PM EDT Blood Draw [facility] [address] [place] [address], 7th [facility], [address] [place] [address] Arturo Lawrence MD, PhD [address] [place] [address] [address] AURELIA@[facility] 12/31/2024 4:40 PM EDT Office Visit [facility] [address] [place] [address], [address]th [facility], [address] [place] [address] Arturo Lawrence MD, PhD [address] [place] [address] [address] AURELIA@[facility] 01/11/2025 9:40 AM EDT Office Visit [facility] [address] [place] [address], [address] [place] [address] Miki Blackwood MD [address] [place] [address] KALPANA@[facility] 01/15/2025 9:30 AM EDT Office Visit [facility] Otology [address] 2nd [place] [address] Arturo Bunn MD, PhD [address] [place] [address] [email or web address] 01/15/2025 11:30 AM EDT Evaluation [facility] Audiology [facility] [address] [facility] 2nd [place] [address] Arturo Bunn MD, PhD [address] [place] [address] [email or web address] Alecia holland [address] [place] [address] [email or web address] 04/29/2025 10:30 AM EST Office Visit [facility] 55 [facility], 5th [place] [address] Ranjit Morley MD [address] [address] MARCELA@[facility] 09/24/2025 10:30 AM EDT Office Visit [facility] [address] [facility], [address] [place] [address] Magnus Perez MD 55 [place] [address] [email or web address] documented as of this encounter Visit Diagnoses Not on filedocumented in this encounter Care Teams Side Piece Coverer Relationship Specialty Start Date End Date Brett Sharma NP [address] [facility] [place] [address] PCP - General Family Medicine 08/16/21 Arturo Lawrence MD, PhD [address] [facility] Outpatient CareYA [address] [place] [address] AURELIA@[email or web address] Hematology and Oncology 07/06/17 documented as of this encounter Additional Source Comments The information contained in this document represents components of the legal health record. It is not the complete legal health record.[facility]
--- OUTSIDE RECORDS SUMMARY | 2024-12-28 18:22 | XMS_ITS | Encounter Summary ---
Author Organization [facility] Address [address] [facility] [address] [place] [address] Phone Care Team Providers Care Case Investigator Name Role Phone Arturo Lawrence MD, PhD Unavailable [phone] Brett Sharma NP Primary Care Provider + Encounter Details Date Type Department Care Team (Late st Contact Info) Description 02/12/2023 Procedure Pass [facility] [address] [place], [place] [id number] Social History Tobacco Use Types Packs/Day Years Used Date Smoking Tobacco: Never Smokeless Tobacco: Never Alcohol Use Standard Drinks/Week Comments Yes 3 (1 standard drink = 0.6 oz pur e alcohol) Education Answer Date Recorded Are you interested [...] 12/31/2024 3:30 PM EDT Blood Draw [facility] [address] [facility], 7th Floor, [address] [place] [address] Arturo Lawrence MD, PhD [address] [place] [address] [address] AURELIA@[facility] 12/31/2024 4:40 PM EDT Office Visit [facility] [address] [facility], 7th Floor, [address] [place] [address] Arturo Lawrence MD, PhD [address] [place] [address] [address] AURELIA@[facility] 01/11/2025 9:40 AM EDT Office Visit [facility] [address] [facility] [place], [address] [place] [address] Miki Blackwood MD [address] [place] [address] KALPANA@[facility] 01/15/2025 9:30 AM EDT Office Visit [facility] Otology [address] [address] Arturo Bunn MD, PhD [address] [place] [address] [email or web address]@[email or web address] 01/15/2025 11:30 AM EDT Evaluation [facility] Audiology [address] [address] Arturo Bunn MD, PhD [address] [place] [address] [email or web address]@[email or web address] Alecia Hogan [address] [place] [phone] [email or web address] 04/29/2025 10:30 AM EST Office Visit [facility] 55 [facility], 5th [place] [address] Ranjit Morley MD [address] [address] MARCELA@[email or web address] 09/24/2025 10:30 AM EDT Office Visit [facility] Cardiology [facility] [address] [facility], [address] [place] [address] Magnus Perez MD 55 [place] [address] [email or web address] documented as of this encounter Visit Diagnoses Not on filedocumented in this encounter Care Teams Case Investigator Relationship Specialty Start Date End Date Brett Sharma NP [address] [facility] [place] [address] PCP - General Family Medicine 08/16/21 Arturo Lawrence MD, PhD [address] [place] [address] Outpatient CareYAW 7B [place] [address] [email or web address] Hematology and Oncology 07/06/17 documented as of this encounter Additional Source Comments The information contained in this document represents components of the legal health record. It is not the complete legal health record.[facility]
--- OUTSIDE RECORDS SUMMARY | 2024-12-28 18:22 | XMS_ITS | Encounter Summary ---
Author Organization [facility] Address [address] [facility] [address] [place] [address] Phone Care Team Providers Care Theoretical Physicist Name Role Phone Arturo Lawrence MD, PhD Unavailable [phone] Brett Sharma NP Primary Care Provider + Encounter Details Date Type Department Care Team (Late Contact Info) Description 09/25/2023 Procedure Pass [facility] [address] [place] [id number] Social History Tobacco Use Types Packs/Day Years [...] Description 12/31/2024 3:30 PM EDT Blood Draw [facility]ematology [address] [facility], 7th Floor, [address] [place] [address] Arturo Lawrence MD, PhD [address] [place] [address] [address] [address] AURELIA@[facility] 12/31/2024 4:40 PM EDT Office Visit [facility] Hematology [address] [facility], 7th Floor, [address] [place] [address] Arturo Lawrence MD, PhD [address] [place] [address] [address] AURELIA@[facility] 01/11/2025 9:40 AM EDT Office Visit [facility] [address] [facility], [address] [place] [address] Miki Blackwood MD [address] [place] [address] KALPANA@[email or web address] 01/15/2025 9:30 AM EDT Office Visit [facility] Otology [address] [address] Arturo Bunn MD, PhD [address] [place] [address] [email or web address]@[email or web address] 01/15/2025 11:30 AM EDT Evaluation [facility] Audiology [address] [address] Arturo Bunn MD, PhD [address] [place] [address] [email or web address]@[email or web address] Alecia Hogan [address] [place] [address] [email or web address] 04/29/2025 10:30 AM EST Office Visit [facility] 55 [facility], 5th [place] [address] Ranjit oMrley MD 15 [facility] [address] [place] [address] MARCELA@[facility] 09/24/2025 10:30 AM EDT Office Visit [facility] Cardiology [facility] [address] [facility], [address] [place] [address] Magnus Perez MD 55 [place] [address] [email or web address] documented as of this encounter Visit Diagnoses Not on filedocumented in this encounter Care Teams Theoretical Physicist Relationship Specialty Start Date End Date Brett Sharma NP [address] [facility] [place] [address] PCP - General Family Medicine 08/16/21 Arturo Lawrence MD, PhD [address] [place] [address] Outpatient CareYA [address] [place] [address] AURELIA@[facility] Hematology and Oncology 07/06/17 documented as of this encounter Additional Source Comments The information contained in this document represents components of the legal health record. It is not the complete legal health record.[facility]
--- OUTSIDE RECORDS SUMMARY | 2024-12-28 18:22 | XMS_ITS | Encounter Summary ---
Author Organization [facility] Address [address] [facility] [address] [place] [address] Phone Care Team Providers Care Income Tax Consultant Name Role Phone Pcp, Not Required Primary Care Provider Unavaila Arturo Tong MD, PhD Unavailable [phone] Rylee Zendejas MAINTENANCE MECHANIC ELEVATORS Primary Care Provider Unknown, Unknown Primary Care Provider Rylee Sanchez MAINTENANCE MECHANIC ELEVATORS Primary Care Provider Brett Sharma MAINTENANCE MECHANIC ELEVATORS Primary Care Provider + Encounter Details Date Type Department Care Team (Late st Contact Info) Description 02/03/2018 Procedure Pass [facility] General Imaging [address] [place] [address] Social History Tobacco Use Types Packs/Day Years [...] Description 12/31/2024 3:30 PM EDT Blood Draw [facility] Center for Hematology [address] [facility], 7th Floor, [address] [place] [address] Arturo Lawrence MD, PhD [address] [facility] for Outpatient CareYAW [address] [place] [address] AURELIA@[facility] 12/31/2024 4:40 PM EDT Office Visit [facility] Center for Hematology [address] [facility], 7th Floor, [address] [place] [address] Arturo Lawrence MD, PhD [address] [facility] for Outpatient CareYAW [address] [place] [address] AURELIA@[facility] 01/11/2025 9:40 AM EDT Office Visit [facility] 52 [facility], [address] [place] [address] Miki Blackwood MD [address] [place] [address] KALPANA@[facility] 01/15/2025 9:30 AM EDT Office Visit [facility] Otology [address] [address] Arturo Bunn MD, PhD [address] [place] [address] [email or web address] 01/15/2025 11:30 AM EDT Evaluation [facility] Audiology [address] [address] Arturo Bunn MD, PhD [address] [place] [address] [email or web address] Alecia Hogan [address] [place] [phone] [email or web address] 04/29/2025 10:30 AM EST Office Visit [facility] 55 [facility], 5th [place] [address] Ranjit Morley MD 15 [facility] [address] [place] [address] MARCELA@[facility] 09/24/2025 10:30 AM EDT Office Visit [facility] [address] [facility], [address] [place] [address] Magnus Perez MD [address] [place] [address] [email or web address] documented as of this encounter Visit Diagnoses Not on filedocumented in this encounter Care Teams Income Tax Consultant Relationship Specialty Start Date End Date Pcp, Not Required [address] [place] [address] PCP - General 08/24/16 04/26/19 Rylee Zendejas NP [address] [place] [address] [email or web address] PCP - General Family Medicine 04/27/19 06/15/19 Cesario, MD Cesario [address] [place] [address] PCP - General 06/16/19 06/22/19 Rylee Zendejas NP [address] [place] [address] [place] [address] [email or web address] PCP - General Family Medicine 06/23/19 08/15/21 Brett Sharma NP [address] [place] [address] [place] [address] PCP - General Family Medicine 08/16/21 Arturo Lawrence MD, PhD [address] [facility] Outpatient CareYAW [address] [place] [address] AURELIA@[email or web address] Hematology and Oncology 07/06/17 documented as of this encounter Additional Source Comments The information contained in this document represents components of the legal health record. It is not the complete legal health record.[facility]
--- OUTSIDE RECORDS SUMMARY | 2024-12-28 18:22 | XMS_ITS | Encounter Summary ---
Author Organization [facility] Address [address] [address] Phone Care Team Providers Care Acid Purification Equipment Operator Name Role Phone Pcp, Not Required Primary Care Provider Unavaila Arturo Tong MD, PhD Unavailable [phone] Rylee Zendejas PHARMACEUTICAL BOTANIST Primary Care Provider Unknown, Unknown Primary Care Provider Rylee Sanchez PHARMACEUTICAL BOTANIST Primary Care Provider Brett Sharma PHARMACEUTICAL BOTANIST Primary Care Provider + Encounter Details Date Type Department Care Team (Late st Contact Info) Description 04/07/2019 Transcribe Orders [facility] Laboratory [address] [place] [address] Arturo Lawrence MD, PhD [address] [place] [address] [address] [email or web address] Pigment cirrhosis (Primary Dx) Social History Tobacco Use Types Packs/Day Years [...] Description 12/31/2024 3:30 PM EDT Blood Draw [facility] Center for Hematology [address] [facility], 7th Floor, [address] [place] [address] Arturo Lawrence MD, PhD [address] [place] [address] [address] AURELIA@[facility] 12/31/2024 4:40 PM EDT Office Visit [facility] Center for Hematology [address] [facility], 7th Floor, [address] [place] [address] Arturo Lawrence MD, PhD [address] [place] [address] [address] AURELIA@[facility] 01/11/2025 9:40 AM EDT Office Visit [facility] 52 [facility], [facility] [address] [place] [address] Miki Blackwood MD [address] [place] [address] KALPANA@[facility] 01/15/2025 9:30 AM EDT Office Visit [facility] Otology [address] [address] Arturo Bunn MD, PhD [address] [place] [address] [email or web address]@[email or web address] 01/15/2025 11:30 AM EDT Evaluation [facility] Audiology [address] [address] Arturo Bunn MD, PhD [address] [place] [address] [email or web address]@[email or web address] Alecia Hogan [address] [place] [address] [email or web address] 04/29/2025 10:30 AM EST Office Visit [facility] 55 [facility], 5th [place] [address] Ranjit Morley MD [address] [address] [email or web address]@[email or web address] 09/24/2025 10:30 AM EDT Office Visit [facility] Cardiology [facility] [address] [facility], [address] [place] [address] Magnus Perez MD 55 [place] [address] [email or web address] documented as of this encounter Results * Ferritin (04/07/2019 9:28 AM EST) FERRITIN 22 13 - 150 ug/L [facility] Blood 04/07/2019 9:28 AM EST 04/07/2019 9:30 AM EST us Arturo Lawrence MD, PhD LAB BLOOD ORDERABLES F inal Result Performing Organization Address [facility]/ZIP Co de Phone Number [address] [address] * Iron and iron binding capacity (04/07/2019 9:28 AM EST) IRON 67 30 - 160 ug/dL [facility] IRON BINDING CAPACITY 230 228 - 428 ug/dL [facility] TRANSFERRIN SATURAT. 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 PCP - General Family Medicine 06/23/19 08/15/21 Brett Sharma, SELWYN [address] [place] [address] [place] [address] PCP - General Family Medicine 08/16/21 Arturo Lawrence MD, PhD [address] [place] [address] [facility] [address] [place] [address] [email or web address] Hematology and Oncology 07/06/17 documented as of this encounter Additional Source Comments The information contained in this document represents components of the legal health record. It is not the complete legal health record.[facility]
--- OUTSIDE RECORDS SUMMARY | 2024-12-28 18:22 | XMS_ITS | Encounter Summary ---
Author Organization [facility] Address [address] [facility] [address] [place] [id number] Phone Care Team Providers Care Outsole Caser Name Role Phone Arturo Lawrence MD, PhD Unavailable [phone] Brett Sharma NP Primary Care Provider + Encounter Details Date Type Department Care Team (Late st Contact Info) Description 08/28/2022 Procedure Pass [facility], Ct Scan - [address] [address] Social History Tobacco Use Types Packs/Day Years Used Date Smoking Tobacco: Never Smokeless Tobacco: Never Education Answer Date Recorded Are you interested in more education? Not on kayden e 08/28/2022 Are you concerned about learning? Not on file 08/28/2022 No 08/28/2022 No 08/28/2022 Comments Unknown Sex and Gender Information Value Date Recorded Sex Assigned at Female 06/23/2019 12:35 PM EST Legal Sex Female 5:25 PM EST Gender Identity Female 06/23/2019 12:35 PM EST Sexual Orientation Straight 06/23/2019 12 :35 PM EST documented as of this encounter Functional Status * Calculated C-SSRS Risk Score (Lifetime/Recent) Answer Date of Assessment Author No Risk Indicated 08/28/2022 4:56 AM Eli Rios, RN * Sunburst Suicide Severity Rating Scale (Screener/Recent Self-Report) Question Answer Date of Assessment Author 1. Wish to be (Past 1 Month) No 08/28/2022 4:56 AM EDT Mulugeta Tomas, DANE 2. Non-Specific Active Suicidal Thoughts (Past 1 Month) No 08/28/2022 4:56 AM EDT Mulugeta Tomas, DANE 6. Suicidal Behavior (Lifetime) No 08/28/2022 4:56 AM EDT Mulugeta Tomas, RN documented as of this encounter Plan of Treatment Upcoming Encounters Date Type Department Care Team (Late st Contact Info) Description 12/31/2024 3:30 PM EDT Blood Draw [facility] [address] [place] [address], [address] [facility], [address] [place] [address] Arturo Lawrence MD, PhD [address] [place] [address] [address] [email or web address] 12/31/2024 4:40 PM EDT Office Visit [facility] [address] [place] [address], [address]th [facility], [address] [place] [address] Arturo Lawrence MD, PhD [address] [place] [address] [address] [email or web address] 01/11/2025 9:40 AM EDT Office Visit [facility] [address] [facility], [address] [place] [address] Miki Blackwood MD [address] [place] [id number] [email or web address] 01/15/2025 9:30 AM EDT Office Visit [facility] [address] [place] [address] Arturo Bunn MD, PhD [address] [place] [id number] [email or web address] 01/15/2025 11:30 AM EDT Evaluation [facility] Audiology [facility] [address] [facility] 2nd [place] [address] Arturo Bunn MD, PhD [address] [place] [address] [email or web address] Alecia holland [phone] [place] [phone] [email or web address] 04/29/2025 10:30 AM EST Office Visit [facility] [address] [facility] 5th [place] [address] Ranjit Morley MD [address] [address] [email or web address] 09/24/2025 10:30 AM EDT Office Visit [facility] [place] [facility] Cardiology [facility] [address] [facility], [address] [place] [address] Magnus Perez MD [address] [place] [address] [email or web address] documented as of this encounter Visit Diagnoses Not on filedocumented in this encounter Care Teams Outsole Caser Relationship Specialty Start Date End Date Brett Sharma NP [address] [facility] [place] [address] PCP - General Family Medicine 08/16/21 Arturo Lawrence MD, PhD [address] [facility] [address] [place] [address] [email or web address] and Oncology 07/06/17 documented as of this encounter Additional Source Comments The information contained in this document represents components of the legal health record. It is not the complete legal health record.[facility]
--- OUTSIDE RECORDS SUMMARY | 2024-12-28 18:22 | XMS_ITS | Clinical Summary ---
Author Organization [facility] Address [address] [address] Phone Care Team Providers Care Thin Film Technician Name Role Phone Arturo Lawrence MD, PhD Unavailable [phone] Brett Sharma NP Primary Care Provider + Allergies Active Allergy Reactions Criticality Noted Date Comments [place] Oil Rash Low 04/04/2017 Amoxicillin-Pot Clavulanate Anaphylaxis High 10/19/2013 Flavoring Agent (Bulk) Rash Low 04/04/2017 Meperidine Swelling 05/03/2017 Doxycycline Hyclate Anaphylaxis High 05/03/2017 Ibuprofen 05/23/2022 Throat tightness feels like asthma attack Latex, Natural Rubber Rash Low 05/21/2019 Morphine Itching,Swelling 10/19/2013 Other 08/28/2022 turnip Oxycodone-Acetaminophen Swelling 05/03/2017 Ok with tylenol Prednisone Neuropathy Medium 08/28/2022 [place] Hives Medium 04/04/2017 Tramadol Itching Low 09/12/2023 Itchy throat Valacyclovir Neuropathy Medium 08/28/2022 Hydrocodone-Acetaminophe n Swelling 05/03/2017 Ok with tylenol Medications albuterol 90 mcg/actuation inhaler Inhale 2 puffs into the lungs every 6 (six) hours as needed for wheezing. 1 Inhaler 0 Active budesonide-form oterol (SYMBICORT) 160-4.5 mcg/actuation inhaler 2 (two) times a day. 2 Active XIIDRA 5 % opthalmic solution 1 drop 2 (two) times a day. 3 Active montelukast (SINGULAIR) 10 mg tablet take 1 tablet by mouth everyday at bedtime 3 Active levalbuterol (XOPENEX HFA) 45 mcg/actuation inhaler Inhale 1-2 puffs into the lungs every 4 (four) hours as needed for wheezing. Active celecoxib (CELEBREX) 100 MG capsule TAKE 1 CAPSULE BY MOUTH EVERY DAY. BRING FOR CHALLENGE 4 Active pantoprazole (PROTONIX) 40 MG tablet Take 1 tablet by mouth every morning. 4 Active calcium carbonate (TUMS ULTRA) 1,000 mg (400 mg elemental) Chew Take 1,000 mg by mouth daily. Active levothyroxine (SYNTHROID, LEVOTHROID) 125 MCG tablet Take 1 tablet (125 mcg total) by mouth every morning. 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 A prior echocardiogram reports mild posterior mitral valve leaflet prolapse with mild to moderate mitral regurgitation. Echocardiogram report from July 2017 reports LVEF 60-65%, LVIDd 42 mm, LVIDs 30 mm, mild posterior mitral valve prolapse, mild to moderate mitral regurgitation, normal RV size and function, estimated RVSP 19 mmHg, normal LV systolic function and left ventricular cavity size, normal left atrial size with an anterior-posterior dimension of 34 mm and a volume index of 34 mL/m2. EKG from today shows normal sinus rhythm at 76 bpm, left axis deviation and minor nonspecific ST-segment and T-wave abnormalities. Blood pressure well controlled. EKG obtained today and interpreted by me. Reviewed her echocardiogram report in detail. Reviewed that the findings of mitral valve prolapse and regurgitation are unlikely to be related to her diagnosis of hemochromatosis, also the degree of regurgitation has reported as only mild to moderate. Discussed that the natural history of this condition will be important to follow to get a sense of progression. Will, therefore, plan for a first repeat echocardiogram in July 2018, so that could be compared to the study from July 2017 done in [facility]. She will try to send me the disc of the study done in July 2017. The findings of the July 2018 study could then inform how frequently we need to get echocardiograms moving forward. We did discuss a smaller real chance of an acute chord rupture and acute severe mitral regurgitation and she knows to look out for that although hopefully, that will not occur. We also discussed that antibiotic prophylaxis is not mandated based on practice guidelines. It has been recommended for her to take an aspirin each day although she has an allergy to NSAIDs and we discussed that from my perspective an aspirin is not absolutely necessary. She felt relieved after our discussion and we will plan for the repeat echocardiogram in July 2018 at the [facility] facility and then one week later an office visit with me to review the findings. Follow up in July 2018, one week after the repeat echocardiogram. 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 Lawrence for hemochromatosis and receives therapeutic phlebotomy. There is a plan from her morning show producer, Dr. Castle at [place] to perform a cardiac MRI to assess for the myocardial involvement of the hemochromatosis. As noted, she has genetically improving hemochromatosis and is undergoing phlebotomy. In terms of cardiac involvement, it is noteworthy that the echocardiogram shows normal LV wall thickness with a septal thickness of 6 mm and posterior wall of 8 mm. Additionally, the E/A ratio is normal with an E wave of 62 and A wave of 49. Reviewed and discussed prior cardiac studies. Discussed that the echocardiogram does not suggest any myocardial involvement for hemochromatosis. She does have a cardiac MRI plan locally which is reasonable and she will send the results to me for review. It is also noted that after phlebotomy she can feel tachycardic where her heart races. She had a Holter monitor which was worn in August 2017 and that showed sinus rhythm and a period of sinus tachycardia up to 150 bpm which occurred after phlebotomy session. Now that the phlebotomy is being spread out more she is hopeful that she would be feeling better and the EKG from today shows a heart rate of 76 bpm. Paresthesia 10/19/2013 Overview (06/12/2014): Paresthesia Asthma 10/19/2013 Overview (06/12/2014): Asthma Resolved Problems Problem Noted Date Diagnosed Date Resolved Date Cobalamin deficiency 10/19/2013 018 Overview (06/12/2014): Vitamin B12 deficiency Encounters Date Type Department Care Team Description 12/28/2024 2:45 AM EDT - 12/28/2024 6:20 AM EDT Emergency [facility] [address] [place] [address] Jairo Young, DO Discharge Disposition: Home or Self Care 12/24/2024 3:39 PM EDT - 12/24/2024 11:59 PM EDT Hospital Encounter [facility] Laboratory [address] [place] [address] Miki Blackwood MD Discharge Disposition: Home or Self Care 12/24/2024 Orders Only [facility] [address] [facility], [address] [place] [address] Miki Blackwood MD Hypocalcemia (Primary Dx) 12/24/2024 Transcribe Orders [facility] [address] [place] [address] Miki Blackwood MD Hypothyroidism, postop (Primary Dx); Thyroid cancer 12/24/2024 Transcribe Orders [facility] [address] [place] [address] Miki Blackwood MD Hypothyroidism, postop (Primary Dx); Thyroid cancer 12/07/2024 Orders Only [facility] [address] [facility], [address] [place] [address] Miki Blackwood MD Hypothyroidism, postop (Primary Dx); Thyroid cancer 11/11/2024 8:45 AM EDT Office Visit [address] [address] Arturo Bunn MD, PhD Sudden left hearing loss (Primary Dx) 11/06/2024 3:30 PM EDT Office Visit [address] [address] Roscoe Jtet MD Sudden left hearing loss (Primary Dx) 11/02/2024 10:03 AM EDT - 11/02/2024 11:59 PM EDT Hospital Encounter [facility] PATHOLOGY [facility] [address] [facility] [place] [address] Discharge Disposition: Home or Self Care 11/02/2024 7:15 AM EDT Procedure visit [address] [address] Jovany Kaur MD Sudden left hearing loss (Primary Dx) 10/28/2024 1:45 PM EDT Office Visit [address] [address] Arturo Bunn MD, PhD Sudden left hearing loss (Primary Dx); Sensorineural hearing loss (SNHL), bilateral 10/28/2024 11:45 AM EDT Evaluation [facility] Audiology [address] [address] Unknown, Unknown, Gena Guzmán AuD Sensorineural hearing loss (SNHL) of both ears (Primary Dx) 10/28/2024 Orders Only [facility] Otology [address] [address] Arturo Bunn MD, PhD Sudden hearing loss (Primary Dx) 10/26/[address] [address] Isi Solomon RN 10/20/2024 Telephone [facility] Otology [address] [place] [address] [facility] 2nd [place] [address] Isi Solomon RN 10/20/2024 Telephone [facility] [address] [facility], [address] [place] [address] Miki Blackwood MD 10/02/2024 10:00 AM EDT Office Visit [facility] Card[facility] [address] [facility], [address] [place] [address] Da Winters MD Mitral valve prolapse (Primary Dx); Mitral valve insufficiency, unspecified etiology; Hereditary hemochromatosis 10/02/2024 8:41 AM EDT - 10/02/2024 11:59 PM EDT Hospital Encounter [facility] Echo [facility] [address] [facility], [address] [place] [address] Da Winters MD Discharge Disposition: Home or Self Care 10/02/2024 Orders Only [facility] [address] [facility], [address] [place] [address] Mary Degroot Mitral valve insufficiency, unspecified etiology (Primary Dx) 10/04/2023 Procedure Pass [facility] [address] [facility] [facility], [address] [place] [address] from Last 3 Months Immunizations Immunization Administration Dates Next Due COVID-19 (Pre-02/11) Moderna Vaccine, mRNA, PF 0 05/27/2020,04/29/2020 Influenza, Unspecified Formulation 01/17/2017, Family History Medical History Relation Comments Diabetes Father Hearing loss Father Ulcerative colitis Father Stomach cancer Maternal Grandfather Diabetes Maternal Grandmother Multiple myeloma Mother Uterine cancer Paternal Grandmother TRINIDAD disease Son Thyroid cancer Neg Hx Thyroid disease Neg Hx Relation Status Comments Daughter Alive Father Alive Maternal Grandfather Maternal Grandmother Mother Alive Paternal Grandfather Paternal Grandmother Son Alive Social History Tobacco Use Types Packs/Day Years [...] Orientation Straight 06/23/2019 12 :35 PM EST Last Filed Vital Signs Vital Sign [...] Mass Index 25.06 12/28/2024 12:16 AM EDT Plan of Treatment Upcoming Encounters Date Type Department Care Team (Late st Contact Info) Description 12/31/2024 3:30 PM EDT Blood Draw [facility] Center for Hematology [address] [facility], 7th [address], [address] [place] [address] Arturo Lawrence MD, PhD [address] [place] [address] [address] [address] [email or web address] 12/31/2024 4:40 PM EDT Office Visit [facility] for [facility] [address] [facility], [address]th [address], [address] [place] [address] Arturo Lawrence MD, PhD [address] [facility] for Outpatient CareYAW [address] [place] [id number] [email or web address] 01/11/2025 9:40 AM EDT Office Visit [facility] [address] [facility], [address] [place] [address] Miki Blackwood MD [address] [place] [id number] [email or web address] 01/15/2025 9:30 AM EDT Office Visit [facility] Otology [address] [address] Arturo Bunn MD, PhD [address] [place] [phone] [email or web address] 01/15/2025 11:30 AM EDT Evaluation [facility] Audiology [address] [address] Arturo Bunn MD, PhD [address] [place] [id number] [email or web address] Alecia Hogan [address] [phone] [email or web address] 04/29/2025 10:30 AM EST Office Visit [facility] [address] [facility], 5th [place] [address] Ranjit Morley MD [address] [address] [email or web address] 09/24/2025 10:30 AM EDT Office Visit [facility] Cardiology [facility] [address] [facility], [address] [place] [address] Da Winters MD [address] [place] [address] [email or web address] Health Maintenance Due Date Last Done Comments DEPRESSION SCREENING 1988 HIV ONE-TIME SCREENING (18-65 YEARS) 1994 PNEUMOCOCCAL VACCINES (0-49 years) (1 of 2 - PCV) 09/14/1995 MAMMOGRAM 2016 COLOGUARD 2021 COLONOSCOPY 2021 COLORECTAL CANCER SCREENING 2021 FIT TEST 2021 FOBT 2021 SIGMOIDOSCOPY 2021 VIRTUAL COLONOSCOPY 2021 Adult Td,Tdap Booster 09/20/2021 09/21/2011 INFLUENZA VACCINE (#1) 2024 , 12/29/2019, 11/25/2018, Additional history exists COVID-19 VACCINE (2024- season) 2024 03/24/2021, 05/27/2020, 04/29/2020 LIPID PANEL 03/10/2025 03/10/2020 SCREENING FOR DIABETES 08/28/2025 08/28/2022 TSH LEVEL 12/24/2025 12/24/2024, 05/23, 12/30/2023, Additional history exists PAP SMEAR 12/30/2026 12/31/2023 HEPATITIS C SCREENING Completed 10/17/2022 SMOKING STATUS SCREENING (Once After 26 Yrs) Completed 12/28/2024 HEPATITIS A VACCINES Aged Out No long er eligible based on patient's age to complete this topic HIB VACCINES Aged Out No longer eligi ble based on patient's age to complete this topic MENINGOCOCCAL VACCINES (ACWY) Aged Out No longer eligible based on patient's age to complete this topic MENINGOCOCCAL VACCINES (B) Aged Out N o longer eligible based on patient's age to complete this topic Medical Devices Implanted Type Area Clinical Informatics Strategist Device Identifier Shelf Expiration Date Model / Serial / Lot Dental-Left Upper Procedures Procedure Name Priority Date/Time Associated Diagnosis Comments ALBUMIN Routine 12/24/2024 4:54 PM EDT Hypocalcemia PHOSPHORUS Routine 12/24/2024 4:54 PM EDT Hypocalcemia THYROGLOBULIN, TUMOR MARKER Routine 12/24/2024 4:54 PM EDT Hypothyroidism, postop Thyroid cancer FREE T3 Routine 12/24/2024 4:54 PM EDT Hypothyroidism, postop Thyroid cancer FREE T4 Routine 12/24/2024 4:54 PM EDT Hypothyroidism, postop Thyroid cancer TSH Routine 12/24/2024 4:54 PM EDT Hypothyroidism, postop Thyroid cancer CALCIUM Routine 12/24/2024 4:54 PM EDT Hypocalcemia PARATHYROID HORMONE (PTH) Routine 12/24/2024 4:54 PM EDT Hypocalcemia CBC AND DIFFERENTIAL Routine 11/02/2024 10:27 AM EDT Hereditary hemochromatosis FERRITIN Routine 11/02/2024 10:27 AM EDT Hereditary hemochromatosis HEARING TEST Routine 10/28/2024 1:33 PM EDT Sudden hearing loss AUDIOLOGY ORDERS 10/28/2024 12:0 4 PM EDT ECG 12-LEAD Routine 10/02/2024 10:05 AM EDT Mitral valve insufficiency, unspecified etiology TTE COMPREHENSIVE Routine 10/02/2024 9:5 1 AM EDT Mitral valve insufficiency, unspecified etiology from Last 3 Months Results * Thyroglobulin, Tumor Marker (12/24/2024 4:54 PM EDT) THYROGLOBULIN 0.5 < or = 33 ng/mL [facility] THYROGLOBULIN AB <1.8 <1.8 IU/mL [facility] THYROGLOBULIN INTRP SEE NOTE [facility] Comment: (NOTE) Thyroglobulin (Tg) [...] testing methods are immunoenzymatic assays manufactured by [employer] and performed on the [employer] DXI 800. Values obtained from different assay methods or kits may be different and cannot be used interchangeably. The results cannot be interpreted as absolute evidence for the presence or absence of malignant disease. Blood 12/24/2024 4:54 PM EDT 12/24/2024 5:01 PM EDT us Miki Blackwood MD LAB BLOOD ORDERABLES Final Result [facility] [address] [place] [address] * Free T3 (12/24/2024 4:54 PM EDT) FREE T3 2.9 2.0 - 4.4 pg/mL [facility] Blood 12/24/2024 4:54 PM EDT 12/24/2024 5:01 PM EDT us Miki Blackwood MD LAB BLOOD ORDERABLES Final Result Performing Organization Address [facility]/ZIP Co de Phone Number [address] [address] * TSH (12/24/2024 4:54 PM EDT) TSH 0.47 0.27 - 4.20 uIU/mL [facility] Blood 12/24/2024 4:54 PM EDT 12/24/2024 5:01 PM EDT us Miki Blackwood MD LAB BLOOD ORDERABLES Final Result Performing Organization Address [facility] Co de Phone Number [address] [address] * Free T4 (12/24/2024 4:54 PM EDT) FREE T4 1.6 0.9 - 1.7 ng/dL [facility] Blood 12/24/2024 4:54 PM EDT 12/24/2024 5:01 PM EDT us Miki Blackwood MD LAB BLOOD ORDERABLES Final Result Performing Organization Address [facility] Co de Phone Number [address] [address] * Phosphorus (12/24/2024 4:54 PM EDT) PHOSPHORUS 3.0 2.7 - 4.5 mg/dL [facility] Blood 12/24/2024 4:54 PM EDT 12/24/2024 5:01 PM EDT us Miki Blackwood MD LAB BLOOD ORDERABLES Final Result Performing Organization Address City/[facility]/ZIP Co de Phone Number [address] [address] * Parathyroid hormone (PTH) (12/24/2024 4:54 PM EDT) PARATHYROID HORMONE 39 15 - 65 pg/mL [facility] Blood 12/24/2024 4:54 PM EDT 12/24/2024 5:01 PM EDT Miki Blackwood MD LAB BLOOD ORDERABLES Final Result [address] [address] * Calcium (12/24/2024 4:54 PM EDT) CALCIUM 8.9 8.4 - 10.3 mg/dL [facility] Blood 12/24/2024 4:54 PM EDT 12/24/2024 5:01 PM EDT Miki Blackwood MD LAB BLOOD ORDERABLES Final Result [address] [address] * Albumin (12/24/2024 4:54 PM EDT) ALBUMIN 4.6 3.9 - 4.8 g/dL [facility] Blood 12/24/2024 4:54 PM EDT 12/24/2024 5:01 PM EDT Miki Blackwood MD LAB BLOOD ORDERABLES Final Result [address] [address] * (ABNORMAL) CBC and differential (11/02/2024 10:27 AM EDT) WBC 6.61 4.00 - 11.00 K/uL [facility] RBC 4.41 4.00 - 5.20 M/uL [facility] HGB 13.1 12.0 - 16.0 g/dL [facility] HCT 41.6 36.0 - 46.0 % [facility] PLT 311 150 - 450 K/uL [facility] MCV 94.3 80.0 - 100.0 fL [facility] MCH 29.7 27.0 - 31.0 pg [facility] MCHC 31.5(L) 32.0 - 36.0 g/dL [facility] RDW 13.4 11.5 - 14.5 % [facility] MPV 10.8 8.4 - 12.0 fL [facility] NRBC 0.00 0.00 /100 WBCs [facility] ABSOLUTE NRBC 0.00 0.00 K/uL [facility] DIFF METHOD Auto [facility] NEUTS 75.1 48.0 - 76.0 % [facility] LYMPHS 18.0 18.0 - 41.0 % [facility] MONOS 4.2 4.0 - 11.0 % [facility] EOS 0.8 0.0 - 5.0 % [facility] BASOS 1.1 0.0 - 1.5 % [facility] % IMMATURE GRANS 0.8 0.0 - 0.9 % [facility] ABSOLUTE NEUTS 4.97 1.92 - 7.60 K/uL [facility] ABSOLUTE LYMPHS 1.19 0.72 - 4.10 K/uL [facility] ABSOLUTE MONOS 0.28 0.16 - 1.10 K/uL [facility] ABSOLUTE EOS 0.05 0.00 - 0.50 K/uL [facility] ABSOLUTE BASOS 0.07 0.00 - 0.15 K/uL [facility] ABS IMMATURE GRANS 0.05 0.00 - 0.09 K/uL [facility] Blood 11/02/2024 10:2 7 AM EDT 11/02/2024 1:05 PM EDT us Arturo Lawrence MD, PhD LAB BLOOD ORDERABLES F inal Result [facility] [address] [place] [address] * Ferritin (11/02/2024 10:27 AM EDT) FERRITIN 17 10 - 200 ug/L [facility] 11/02/2024 10:2 7 AM EDT 11/02/2024 1:05 PM EDT us Arturo Lawrence MD, PhD LAB BLOOD ORDERABLES F inal Result [facility] [address] [place] [address] * Hearing Test (10/28/2024 1:33 PM EDT) Other us Arturo Bunn MD, PhD AUDIOLOGY SERVICES ORDERABL ES Final Result * Audiology Orders (10/28/2024 12:04 PM EDT) 10/28/2024 12:0 4 PM EDT us Provider Not In System PhD AUDIOLOGY SERVICES OR DERABLES Final Result Performing Organization Address City/[facility]/ZIP Co de Phone Number DR HARMONEI AUD * ECG 12-LEAD (10/02/2024 10:05 AM EDT) Systolic Blood Pressure [facility] Diastolic Blood Pressure [facility] Ventricular Rate EKG/MIN 59 BPM [facility] Atrial Rate 59 BPM [facility] DC Interval 204 ms [facility] QRS Duration 90 ms [facility] QT Interval 414 ms [facility] QTC Interval 409 ms [facility] P Beaver 20 degrees [facility] R Wave Beaver -46 degrees [facility] T Wave Be[place] 18 degrees [facility] 10/02/2024 10:0 5 AM EDT 10/04/2024 10:29 AM EDT Narrative [facility] - 10/04/2024 10:29 AM EDT SINUS BRADYCARDIA BORDERLINE FIRST DEGREE ATRIOVENTRICULAR BLOCK ANDRA PATTERN NORMAL VARIANT LEFT AXIS DEVIATION TENDENCY TO LOW VOLTAGE POOR R WAVE PROGRESSION WHEN COMPARED WITH ECG OF 04-Oct-2023 09:07, HEART RATE HAS DECREASED us Da Winters MD ECG ORDERABLES Final Result [facility] * TTE COMPREHENSIVE (10/02/2024 9:51 AM EDT) Left Ventricle Internal Diameter End Diastole 44 37 - 52 mm Interventricular Septum Thickness 10 6 - 11 mm Height 163 cm Left Ventricle Internal Diameter End Systole 29 <35 mm Left Ventricular Posterior Wall Thickness 9 6 - 11 mm Ascending Aorta Diameter 33 <36 mm Weight 63 kg Raw LV EF% 57 % Left Atrium Dimension Anterior-Posterior 40 15 - 40 mm Body Surface Area 1.68 m2 Left Atrial Volume Index 32 16 - 34 mL/m2 Right Ventricle TAPSE 22 >=17 mm Relative Wall Thickness 0.41 0.22 - 0.42 Left Ventricle indexed to BSA 82.0 g/m2 Right Ventricle Basal Diameter 29 25 - 41 mm Left Atrial Volume 53 mL Left Atrial Volume Index by Height 33 mL/m Ascending Aorta Index 20 mm/m2 Asc Aorta CSA Index by Height 5.24 cm2/m Right Atrium Pressure Estimated 10 mmHg Ascending Aorta Index 20 mm Ascending Aorta Diameter 20 mm AO ASC DIAM BSA INDEX 19.64 Aortic Sinus Diameter 39 <40 mm Left Ventricular Apical Contribution 10 Ejection Fraction 64 50 - 75 % Aortic Valve Sinus Index by BSA 23 mm/m2 Aorta Sinus Index by Height 2.39 cm/m Aorta Sinus CSA index by Height 7.33 cm2/m Aortic Sinus Index 23 mm Aortic Valve Sinus Index 1 23 19 - 27 mm Right Ventricle Tissue Doppler MPI 11 0.22 - 0.54 Left Atrium Dimension Medial-Lateral 42 29 - 49 mm Right Atrium Dimension Superior-Inferior 51 mm Right Atrium Index Superior-Inferior 30 19 - 30 mm/m2 Right Atrium Dimension Medial-Lateral 39 mm Right Atrium Dimension Medial-Lateral 23 13 - 25 mm/m2 Inferior Vena Cava Diameter 16 <21 mm Right Atrium Dimension Medial-Lateral 23 mm/m2 Right Atrium Index Superior-Inferior 30 mm/m2 Anatomical Region Laterality Modality Heart Ultrasound Narrative 10/03/2024 9:36 AM EDT Normal biventricular systolic function Posterior MVP with trace mitral regurgitation Left Ventricle The left ventricle is normal in size. There is normal wall thickness. There is normal left ventricular systolic function. The LV ejection fraction is 64% (calculated via the single dimension method). There are no wall motion abnormalities. Right Ventricle The right ventricle is normal in size. The RV basal dimension is 29 mm (normal: 25-41 mm). There is normal right ventricular systolic function. Left Atrium The left atrium is normal in size. The left atrial volume is 53 mL. The left atrial volume index by BSA is 32 mL/m2 (normal: 16-34 mL/m2). Right Atrium The right atrium is normal in size. The right atrial superior-inferior index is 30 mm/m2 (normal: 19-30 mm/m2). The right atrial medial-lateral index is 23 mm/m2 (normal: 13-25 mm/m2). The IVC is normal in size with normal inspiratory collapse. Mitral Valve There is mild posterior mitral valve prolapse. There is trace mitral regurgitation. Tricuspid Valve There is trace tricuspid regurgitation. RV systolic pressure could not be estimated due to insufficient TR Doppler envelope. Aortic Valve The aortic valve is tricuspid. There is no aortic stenosis. There is trace aortic regurgitation. The aortic sinus diameter is 39 mm (normal: < 40 mm). The ascending aortic diameter is 33 mm (normal: < 36 mm). Pulmonic Valve There is no pulmonic stenosis. There is trace pulmonic regurgitation. Pericardium There is no pericardial effusion. General Findings The image quality was fair (3). Comparison Findings Compared to prior TTE study on 04/19/2022, there are no important changes. Da Winters MD CV ECHO ORDERABLES Final Result from Last 3 Months Insurance AETNA PPO AETNA PPO AETNA PPO AETNA PPO AETNA PPO AETNA PPO AETNA PPO AETNA PPO AETNA PPO AET[employer] PPO Care Teams Thin Film Technician Relationship Specialty Start Date End Date Brett Sharma NP [address] [place] [address] PCP - General Family Medicine 08/16/21 Arturo Lawrence MD, PhD [address] [place] [id number] [email or web address] Hematology and Oncology 07/06/17 Additional Source Comments The information contained in this document represents components of the legal health record. It is not the complete legal health record.[facility]
--- OUTSIDE RECORDS SUMMARY | 2024-12-28 18:22 | XMS_ITS ---
Author Name [facility] Organization Unknown History of Medication Use Medication Directions Dispensed Refills Start Date End Date Stat us levonorgestreL (MIRENA) 21 mcg/24hr (up to 8 yrs) 52 mg IUD intrauterine, Once, On Sat06/10/24 at 1215, For 1 dose 06/10/2024 5 completed cefdinir (OMNICEF) 300 MG capsule Take 1 capsule (300 mg total) by mouth. 03/11/2024 4 active acyclovir (ZOVIRAX) 200 MG capsule Take 2 capsules (400 mg total) by mouth 2 (two) times a day. 12/31/2023 active cephalexin (KEFLEX) 500 MG capsule Take 1 capsule (500 mg total) by mouth 2 (two) times a day. 12/26/2023 4 active Auvi-Q 0.3 mg/0.3 mL injection INJECT NEEDED FOR SEVERE ALLERGIC REACTION INCLUDING ANAPHYLAXIS DIRECTED AND THEN CALL 911 12/16/2023 active celecoxib (CeleBREX) 100 MG capsule TAKE 1 CAPSULE BY MOUTH EVERY DAY. BRING FOR CHALLENGE 09/24/2023 active Symbicort 160-4.5 MCG/ACT inhaler Inhale 2 puffs 2 (two) times a day. 09/05/2023 active estradiol (VIVELLE-DOT) 0.0375 MG/24HR Place 1 patch onto the skin 2 (two) times a week. 06/27/2023 active levalbuterol (XOPENEX HFA) 45 MCG/ACT inhaler Inhale 2 puffs into the lungs every 4 (four) hours as needed. 06/20/2023 active levalbuterol (XOPENEX HFA) 45 mcg/actuation inhaler Inhale 2 puffs by mouth Every 4 hours as needed. 06/20/2023 active levalbuterol (XOPENEX HFA) 45 mcg/actuation inhaler TAKE 2 PUFFS BY MOUTH EVERY 4 HOURS NEEDED 06/20/2023 active levalbuterol (XOPENEX HFA) 45 mcg/puff inhaler Inhale 2 puffs every 4 (four) hours as needed. 06/20/2023 active calcitRIOL (ROCALTROL) capsule 0.25 mcg TAKE 1 CAPSULE (0.25 MCG TOTAL) BY MOUTH TWICE A DAY 02/25/2023 active calcitRIOL (ROCALTROL) capsule 0.25 mcg TAKE 1 CAPSULE (0.25 MCG TOTAL) BY MOUTH TWICE A DAY 02/25/2023 active acyclovir (ZOVIRAX) 200 MG capsule Take 2 capsules (400 mg total) by mouth 2 (two) times a day. 02/14/2023 active levothyroxine (SYNTHROID, LEVOTHROID) 100 mcg tablet Take 1 tablet (100 mcg total) by mouth 1 (one) time each day in the morning. 02/12/2023 active omeprazole (PriLOSEC) 20 MG capsule Take 1 capsule (20 mg total) by mouth 08/09/2022 active omeprazole (PriLOSEC) [address] capsule Take 1 capsule (20 mg total) by mouth 1 (one) time each day. 08/09/2022 active Xiidra 5 % dropperette Place 1 drop into both eyes 2 (two) times a day. 08/23/2021 active Xiidra 5 % SOLN Place 1 drop into both eyes 2 (two) times a day. 08/23/2021 active budesonide-formotero L (SYMBICORT) 160-4.5 mcg/actuation inhaler 2 (two) times a day. 08/18/2021 active albuterol HFA (PROAIR HFA ; PROVENTIL HFA ; VENTOLIN HFA) 90 mcg/actuation inhaler Inhale 2 puffs by mouth every 6 hours as needed. 06/23/2019 active acyclovir (ZOVIRAX) 200 mg capsule Take 2 capsules (400 mg total) by mouth 2 (two) times a day. active calcitrioL (ROCALTROL) 0.25 mcg capsule Take 1 capsule (0.25 mcg total) by mouth 1 (one) time each day. active celecoxib (CeleBREX) 100 mg capsule TAKE 1 CAPSULE BY MOUTH EVERY DAY. BRING FOR CHALLENGE active norethindrone (AYGESTIN) 5 mg tablet Take 1 tablet (5 mg total) by mouth 1 (one) time each day. active Xiidra 5 % Solution INSTILL 1 DROP INTO BOTH EYES TWICE A DAY Ophthalmic for 30 active Allergies Allergen Reaction Severity Comment Documented Date Source Status TRAMADOL ITCHINGITCHINGITCHING Itchy throat Itchy throat,Itchy throat 09/12/2023 [facility] active VALACYCLOVIR OTHER (SEE COMMENTS) Other Reaction(s): Other (See Comments) 08/28/2022 [facility] active IBUPROFEN ANAPHYLAXIS Throat tightness feels like asthma attack 05/23/2022 [facility] active LATEX UNKNOWN/PATIENT AND FAMILY UNABLE TO DEFINE 05/21/2019 [facility] acti ve LATEX, NATURAL RUBBER RASH 05/21/2019 [facility] active MEPERIDINE UNKNOWN/PATIENT AND FAMILY UNABLE TO DEFINE 05/03/2017 [facility] acti ve OXYCODONE-ACET AMINOPHEN SWELLINGRASH 05/03/2017 [facility] active STRAWBERRIES HIVES 04/04/2017 [facility] active STRAWBERRY HIVES 04/04/2017 [facility] active AMOXICILLIN-PO T CLAVULANATE ANAPHYLAXIS 10/19/2013 [facility] active MORPHINE SWELLING 10/19/2013 [facility] active ALMOND OIL RASH/DERMATITIS [facility] CINNAMON UNKNOWN/PATIENT AND FAMILY UNABLE TO DEFINE [facility] DOXYCYCLINE ANAPHYLAXIS [facility] AN DOXYCYCLINE HYCLATE ANAPHYLAXIS [facility] HYDROCODONE-AC ETAMINOPHEN SWELLING Ok with tylenol [facility] OTHER RASHRASH turnips [facility] PREDNISONE OTHER (SEE COMMENTS) Neuropathy [facility] Problems Problem Status Onset Date Problem Type Date of Resolution Source Encounter for screening mammogram for malignant neoplasm of breast active EncounterDiagnosisAct [facility] Abnormal uterine bleeding active 2022-05-02 [address] [facility] History of herpes genitalis active EncounterDiagnosisAct [facility]THNE MG Screening for cervical cancer active EncounterDiagnosisAct [facility]TT [facility] IUD check up active EncounterDiagnosisAct [facility] Fibroid active EncounterDiagnosisAct [facility] Abdominal pannus active EncounterDiagnosisAct [facility] Diastasis recti active EncounterDiagnosisAct [facility] Umbilical hernia without obstruction and without gangrene active EncounterDiagnosisAct [facility] Lipodystrophy active EncounterDiagnosisAct [facility] Immunizations Vaccine Date Source Lot Number Status [facility] Pr efilled Syringe (12+ yrs) 01/29/2024 [facility] [id number] completed Flucelvax Trivalent PFS IM; Without Preservative (18+ mos) 12/16/2023 [facility] [id number] completed Boostrix (Tdap) Prefilled Syringe 08/19/2023 [facility] [id number] completed Flucelvax Trivalent PFS IM; Without Preservative (18+ mos) 02/05/2023 [facility] [id number] completed [facility] Covid-19 SDV (12+ yrs) 01/27/2023 [facility] CCT [id number] completed Flucelvax Trivalent PFS IM; Without Preservative (18+ mos) 02/19/2022 [facility] [id number] completed Flucelvax Trivalent PFS IM; Without Preservative (18+ mos) 02/04/2021 [facility] [id number] completed Pneumovax 23 Prefilled Syringe 01/06/2021 [facility] [id number] 02 completed Prevnar 13 Prefilled Syringe 11/03/2020 [facility] [id number] completed Covid-19 (Moderna 12+) 100mcg/0.5mL dosage 05/27/2020 [facility] [id number] completed Covid-19 (Moderna 12+) 100mcg/0.5mL dosage 04/29/2020 [facility] [id number] completed Flucelvax Trivalent PFS IM; Without Preservative (18+ mos) 12/18/2019 [facility] [id number] completed Flucelvax Trivalent PFS IM; Without Preservative (18+ mos) 04/06/2019 [facility] [id number] completed Flucelvax Trivalent PFS IM; Without Preservative (18+ mos) 12/11/2018 [facility] [id number] completed MMR Single Dose Vial 09/16/2018 [facility] [id number] comp leted Fluzone Trivalent Prefilled Syringe (18+ months) 01/20/2018 [facility] [id number] completed Fluarix Quadrivalent Prefilled Syringe 01/23/2017 [facility] [id number] completed Fluarix Quadrivalent Prefilled Syringe 03/03/2016 [facility] [id number] completed Fluzone Quadrivalent Multi-d ose Vial (36+ months) 01/21/2015 [facility] [id number] completed Influenza (IM) Preservative Free (36+ Months) 04/08/2013 [facility] completed Encounters Encounter Type Encounter Reason Primary Diagnosis Location Date Ambulatory office visit Encounter for ro utine checking of intrauterine contraceptive device 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 06/10/2024 Ambulatory Encounter for test, result negative Encounter for test, result negative 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 01/22/2024 Ambulatory Encounter for screening for malignant neoplasm of cervix Encounter for screening for malignant neoplasm of cervix [facility] 01/01/2024 [facility] 12/31/2023 Ambulatory Localized adiposity Localized adiposity H Cycle 12/26/2023 Ambulatory Localized adiposity Localized adiposity H Cycle 10/07/2023 Ambulatory Benign neoplasm of connective and other soft tissue, unspecified [facility] 11/13/2022 [facility] 11/07/2022 Care Team Organization Name Specialty Phone Email Start Date End Da te [facility] Primary [facility] 03/03/2024 [facility] 03/02/2024 [facility] 02/28/[address] [facility] NO PCP Primary Care 01/29 [facility] 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
--- OUTSIDE RECORDS SUMMARY | 2024-12-28 18:22 | XMS_ITS | Clinical Summary ---
Author Organization [facility] Address [address] [place] [phone] Phone Care Team Providers Care Pull Over Machine Operator Name Role Phone Brett Sharma NP Primary Care Provider Allergies Active Allergy Reactions Criticality Noted Date Comments Amoxicillin-Pot Clavulanate Anaphylaxis High 10/19/2013 Cinnamon 12/31/2023 Doxycycline Anaphylaxis High 05/03/2017 Hydrocodone-Acetaminophen Swelling 05/03/2017 Ibuprofen Anaphylaxis High 12/31/2023 Latex Rash Low 05/21/2019 Meperidine Swelling 05/03/2017 Morphine 09/12/2021 Other Rash Low 04/04/2017 turnips Oxycodone-Acetaminophen Rash,Swelling Low 8 Prednisone Medium 08/28/2022 Other Reaction(s): Other (See Comments) [place] Hives Medium 04/04/2017 Tramadol Itching Low 09/12/2023 Itchy throat Itchy throat Valacyclovir Medium 08/28/2022 Other Reaction(s): Other (See Comments) Medications albuterol HFA (PROAIR HFA ; PROVENTIL HFA ; VENTOLIN HFA) 90 mcg/actuation inhaler Inhale 2 puffs by mouth every 6 hours as needed. 0 Active celecoxib (CeleBREX) 100 mg capsule TAKE [...] 2 (two) times a day. 2 Active acyclovir (ZOVIRAX) 200 mg capsuleIndicatio ns:Personal history of other infectious and parasitic diseases TAKE 2 CAPSULES BY MOUTH 2 TIMES A DAY. 360 capsule 3 5 Active Active Problems Problem Noted Date Diagnosed Date Abnormal uterine bleeding 05/02/2022 Surgical History Surgery Date Site/Laterality Comments SECTION PROCEDURE: SECTION TONSILLECTOMY PROCEDURE:TONSILLECTOMY;COMMENT:adnoids WISDOM TOOTH EXTRACTION PROCEDURE:WISDOM TOOTH EXTRACTION COLONOSCOPY PROCEDURE:COLONOSCOPY RADIOFREQUENCY ABLATION PROCEDURE:RADIOFREQUENCY ABLATION;COMMENT:of uterine fibroid via Sonata THYROIDECTOMY PROCEDURE:THYROIDECTOMY;COMMENT:total Medical History Medical History Date Comments Asthma DX:Asthma Hemochromatosis DX:Hemochromatos is Gamino esophagus DX:Gamino eso phagus Papillary thyroid carcinoma (CMS/HCC V24, CMS/HCC V28) 01/2023 DX:Papillary thyroid carcino ma (HCC) Hearing loss DX:Hearing loss; COMMENT:bilateral; Fibroids DX:Fibroids Hypoparathyroidism (CMS/HCC V24) DX:Hypoparathyroidism (HCC) Family History Medical History Relation Name [...] care for your loved ones. For example, children's lunchroom supervisor or elderly care for an older adult? [...] Sign Reading Time Taken Comments Blood Pressure 112/71 07/28/2024 1:02 PM EDT Pulse 81 06/10/2024 11:42 AM EST Temperature - - Respiratory Rate - - Oxygen Saturation - - Inhaled Oxygen Concentration - - Weight 64.9 kg (143 lb) 07/28/2024 1:02 PM EDT Height 162.6 cm (5' 4 ) 07/28/2024 1:02 PM EDT Body Mass Index 24.55 07/28/2024 1:02 PM EDT Plan of Treatment Upcoming Encounters Date Type Department Care Team (Late st Contact Info) Description 02/26/2025 11:15 AM EST Office Visit Obstetrics and Gynecology - [address] [place] [phone] Faustina [place] MD [address] [place], [place] [id number] Health Maintenance Due Date Last Done Comments Breast Cancer Screening 1975 Hepatitis B Vaccines (1 of 3 - 19+ 3-dose series) 09/14/1995 Colorectal Cancer Screening: Colonoscopy 03/31/2022 COVID-19 Vaccine (6 - Mixed Product risk season) 2024 01/29/2024, 01/27/2023, 01/17/2022, Additional history exists Influenza Vaccine (#1) 2024 , 02/05/2023, 02/19/2022, Additional history exists Cholesterol Screening (Lipid Panel) 03/10/2025 03/10/2020 Social Influencers of Health Screening 05/27/2025 05/27/2024 Pneumococcal Vaccine: Pediatrics (0 to 5 Years) and At-Risk Patients (6 to 49 Years) (3 of 3 - PCV20 or PCV21) 2026 01/06/2021, 11/03/2020 Cervical Cancer Screening: HPV 12/30/2028 12/31/2023 DTaP,Tdap,and Td Vaccines (2 - Td or Tdap) 08/18/2033 08/19/2023 MMR Vaccines Aged Out 09/16/2018 No longer eligi ble based on patient's age to complete this topic HIV Screening Completed 10/17/2022 Hepatitis C Screening Completed 10/17/2022 Depression Screening Completed 07/22/2024 HIB Vaccines Aged Out No longer eligi [...] age to complete this topic Meningococcal B Vaccine Aged Out No l onger eligible based on patient's age to complete this topic RSV Immunization Patients Under 20 months Aged Out No longer eligible based on patient's age to complete this topic Varicella Vaccines Aged Out No longer eligible based on patient's age to complete this topic Procedures Procedure Name Priority Date/Time Associated Diagnosis Comments HPV Routine 12/31/2023 HEPATITIS C SCREENING Routine 10/17/2022 HIV SCREENING Routine 10/17/2022 from Last 3 Months or Most Recently Relevant to Health Maintenance Results * Cervical Cancer Screening: HPV (12/31/2023) [facility] Cervical Cancer Screening: HPV Negative, Abstracted [facility] Provider HEALTH MAINTENANCE Final Result * HIV Screening (10/17/2022) [facility] HIV Screening Abstracted [facility] Provider HEALTH MAINTENANCE Final Result * Hepatitis C Screening (10/17/2022) [facility] Hepatitis C Screening Abstracted [facility] Provider HEALTH MAINTENANCE Final Result from Last 3 Months or Most Recently Relevant to Health Maintenance Insurance Care Teams Pull Over Machine Operator Relationship Specialty Start Date End Date Brett Sharma NP [address] [place], [place] PCP - General Family Medicine 09/11/21
--- OUTSIDE RECORDS SUMMARY | 2024-12-28 18:22 | XMS_ITS | Encounter Summary ---
Author Organization [facility] Address [address] [address] Phone Care Team Providers Care Ferryboat Helper Name Role Phone Pcp, Not Required Primary Care Provider Unavaila Arturo Tong MD, PhD Unavailable [phone] Rylee Zendejas RECOIL SPRING WINDER Primary Care Provider Unknown, Unknown Primary Care Provider Rylee Sanchez [employer]ER Primary Care Provider Brett Sharma [employer] SPRING WINDER Primary Care Provider + Encounter Details Date Type Department Care Team (Late st Contact Info) Description 08/14/2018 Transcribe Orders [facility] [address] [place] [address] Arturo [place] MD, PhD [address] [place] [address] [address] [email or web address] Social History Tobacco Use Types Packs/Day Years [...] 12/31/2024 3:30 PM EDT Blood Draw [facility] [address], [address], [address] [place] [address] Arturo Lawrence MD, PhD [address] [place] [address] [address] [email or web address] 12/31/2024 4:40 PM EDT Office Visit [facility] [address], [address], [address] [place] [address] Arturo [place] MD, PhD [address] [place] [address] [address] [email or web address] 01/11/2025 9:40 AM EDT Office Visit [facility] [address], [address] [place] [address] Miki Blackwood MD [address] [place] [id number] [email or web address] 01/15/2025 9:30 AM EDT Office Visit [facility] [address] [address] Arturo Bunn MD, PhD [address] [place] [address] [email or web address] 01/15/2025 11:30 AM EDT Evaluation [facility] Audiology [address] [address] Arturo Bunn MD, PhD [address] [place] [phone] [email or web address] Hogan [phone] [place] [phone] [email or web address] 04/29/2025 10:30 AM EST Office Visit [facility] [address], 5th [place] [address] Ranjit Morley MD [address] [address] [email or web address] 09/24/2025 10:30 AM EDT Office Visit [facility] [address], [address] [place] [address] Magnus Perez MD [address] [place] [address] [email or web address] documented as of this encounter Visit Diagnoses Not on filedocumented in this encounter Care Teams Ferryboat Helper Relationship Specialty Start Date End Date Pcp, Not Required [address] [place] [id number] PCP - General 08/24/16 04/26/19 Rylee Zendejas NP [address] [place] [address] [email or web address] PCP - General Family Medicine 04/27/19 06/15/19 Cesario, MD Cesario [address] [place] [address] PCP - General 06/16/19 06/22/19 Rylee Zendejas NP [address] [place] [address] [place] [address] [email or web address] PCP - General Family Medicine 06/23/19 08/15/21 Brett Sharma NP [address] [place] [address] [place] [address] PCP - General Family Medicine 08/16/21 Arturo Lawrence MD, PhD [address] [place] [address] Outpatient [facility] [address] [place] [address] [email or web address] Hematology and Oncology 07/06/17 documented as of this encounter Additional Source Comments The information contained in this document represents components of the legal health record. It is not the complete legal health record.[facility]
--- OUTSIDE RECORDS SUMMARY | 2024-12-28 18:22 | XMS_ITS | Clinical Summary ---
Author Organization [facility] Address [address] [place] [address] Care Team Providers Care Business Development Professional Name Role Phone Brett Sharma MD Primary [...] Valacyclovir Other (See Comments) Medium 08/28/2022 Medications calcitRIOL (ROCALTROL) 0.25 MCG capsule Take 1 capsule (0.25 mcg total) by mouth every morning. 3 Active Symbicort 160-4.5 MCG/ACT inhaler Inhale 2 puffs 2 (two) times a day. 4 Active albuterol (PROVENTIL) (0.083%) 2.5 mg/3 mL nebulizer solution INHALE 1 AMP EVERY 4 HOURS NEEDED 4 Active acyclovir (ZOVIRAX) 200 mg capsule Take 2 capsules (400 mg total) by mouth. 3 Active celeCOXIB (CeleBREX) 100 MG capsule as needed. 4 Active Auvi-Q 0.3 MG/0.3ML auto-injection INJECT NEEDED FOR SEVERE ALLERGIC REACTION INCLUDING ANAPHYLAXIS DIRECTED AND THEN CALL 911 4 Active esomeprazole (NexIUM) 40 MG capsule every morning. Activ e levothyroxine (SYNTHROID, LEVOTHROID) 125 MCG tablet Oral for 90 4 Active norethindrone (AYGESTIN) 5 MG tablet Take 1 tablet (5 mg total) by mouth every morning. Active levalbuterol (XOPENEX HFA) 45 mcg/puff inhaler Inhale 2 puffs every 4 (four) hours as needed. 4 Active Xiidra 5 % Solution INSTILL 1 DROP INTO BOTH EYES TWICE A DAY Ophthalmic for 30 Active diazepam (VALIUM) 5 MG tabletIndication s:Abdominal pannus,Umbilical hernia without obstruction and without gangrene Take 1 tablet (5 mg total) by mouth 4 times daily (every 6 hours) as needed for anxiety. 15 tablet 4 Active HYDROmorphone (DILAUDID) 2 MG tabletIndication s:Abdominal pannus,Umbilical hernia without obstruction and without gangrene Take 1 tablet (2 mg total) by mouth every 4 (four) hours as needed for moderate pain or severe pain. Max Daily Amount: 12 mg 18 tablet 4 Active calcium carbonate (TUMS) 500 MG chewable tablet Chew 1 tablet (500 mg total) nightly. Active famotidine (PEPCID) 40 MG tablet Take 1 tablet (40 mg total) by mouth 2 (two) times a day as needed. 4 Active PANTOprazole (PROTONIX) 40 MG EC tablet Take 1 tablet (40 mg total) by mouth. 4 Active diazepam (VALIUM) 5 MG tabletIndication s:Diastasis recti Take 1 tablet (5 mg total) by mouth 3 times daily (every 8 hours) as needed for muscle spasms. 10 tablet 4 Active Active Problems No known active problems Resolved Problems Problem Noted Date Diagnosed Date Resolved Date Asthma exacerbation, mild 03/03/2024 Social History Tobacco Use Types Packs/Day Years [...] more drinks on one occasion? Never 02/20/2024 Comments Unknown Sex and Gender Information Value Date Recorded Sex Assigned at Female 03/03/2024 11:57 AM EST Legal Sex Female 1:15 PM EST Gender Identity Female 03/03/2024 11:57 AM EST Sexual Orientation Heterosexual (straight) 03/03 11:57 AM EST Last Filed Vital Signs Vital Sign Reading Time Taken Comments Blood Pressure 104/70 03/04/2024 8:18 AM EST Pulse 88 03/04/2024 8:18 AM EST Temperature 37.2 C (99 F) 03/04/2024 8:18 AM EST Respiratory Rate 18 [...] Care Team (Late st Contact Info) Description 03/25/2025 9:00 AM EST Office Visit [facility] Plastic & Re[facility]ive [facility] [place] [address] [facility] 210 [place] [phone] Michael Long MD [address] [place] [address] [address] [place] [address] Health Maintenance Due Date Last Done Comments Hepatitis C Virus Screening 1976 HIV Screening 1989 DTaP/Tdap/Td Vaccines (1 - Tdap) 09/14/1995 Hepatitis B Vaccines (1 of 3 - 19+ 3-dose series) 09/14/1995 Pap Smear (Ages 21-65) 1997 Mammogram 2016 Colonoscopy 2021 Influenza Vaccine 11/20/2024 12/16/2023, , 12/16/2023, Additional history exists COVID-19 Vaccine Completed 01/29/2024, 11/2022, 01/17/2022, Additional history exists Pneumococcal Vaccine: Pediatric (0-5 Years) and At-Risk Patients (6 to 49 Years) Aged Out No longer eligible based on patient's age to complete this topic Insurance Advance Directives * Full Code (Latest Code Status on File) Date Activated Date Inactivated Comments 03/03/2024 9:09 PM * Full Code Date Activated Date Inactivated Comments 03/03/2024 12:17 PM 03/03/2024 9:09 PM Care Teams Business Development Professional Relationship Specialty Start Date End Date Brett Sharma MD [address] [place] [address] PCP - General Family Medicine 03/03/24
--- OUTSIDE RECORDS SUMMARY | 2024-12-28 18:22 | XMS_ITS | Encounter Summary ---
Author Organization [facility] Address [address] [address] Phone Care Team Providers Care Community Service Organization Director Name Role Phone Pcp, Not Required Primary Care Provider Unavaila Arturo Tong MD, PhD Unavailable [phone] Rylee Zendejas MACHINE STRAW HAT PRESSER Primary Care Provider Unknown, Unknown Primary Care Provider Rylee Sanchez MACHINE STRAW HAT PRESSER Primary Care Provider Brett Sharma MACHINE STRAW HAT PRESSER Primary Care Provider + Encounter Details Date Type Department Care Team (Late st Contact Info) Description 08/14/2018 Transcribe Orders [facility] Laboratory 30 [place] [address] Arturo Lawrence MD, PhD [address] [place] [address] [address] [email or web address] Social History Tobacco Use Types Packs/Day [...] Description 12/31/2024 3:30 PM EDT Blood [address] [facility] [address] [facility], 7th Floor, [address] [place] [address] Arturo Lawrence MD, PhD [address] [place] [address] [address] AURELIA@[email or web address] 12/31/2024 4:40 PM EDT Office Visit [facility] Center for Hematology [address] [facility], 7th Floor, [address] [place] [address] Arturo Lawrence MD, PhD [address] [place] [address] [address] AURELIA@[email or web address] 01/11/2025 9:40 AM EDT Office Visit [facility] [address] [facility], [address] [place] [address] Miki Blackwood MD [address] [place] [address] KALPANA@[email or web address] 01/15/2025 9:30 AM EDT Office [place] [facility] Ot[place] [address] [address] Arturo Bunn MD, PhD [address] [place] [address] [email or web address] 01/15/2025 11:30 AM EDT Evaluation [facility] Audiology [address] [address] Arturo Bunn MD, PhD [address] [place] [address] [email or web address] Alecia Hogan [address] [place] [address] [email or web address] 04/29/2025 10:30 AM EST Office Visit [facility] [address] [facility], 5th [place] [address] Ranjit Morley MD [address] [address] MARCELA@[email or web address] 09/24/2025 10:30 AM EDT Office Visit [facility] [address] [facility], [address] [place] [address] Magnus Perez MD 55 [place] [address] [email or web address] documented as of this encounter Visit Diagnoses Not on filedocumented in this encounter Care Teams Community Service Organization Director Relationship Specialty Start Date End Date Pcp, Not Required [address] [place] [address] PCP - General 08/24/16 04/26/19 Rylee Zendejas NP [address] [place] [address] [email or web address] PCP - General Family Medicine 04/27/19 06/15/19 Cesario, MD Cesario [address] [place] [address] PCP - General 06/16/19 06/22/19 Rylee Zendejas NP [address] [place] [address] [place] [address] [email or web address] PCP - General Family Medicine 06/23/19 08/15/21 Brett Sharma NP [address] [place] [address] [place] [address] PCP - General Family Medicine 08/16/21 Arturo Lawrence MD, PhD [address] [place] [address] Outpatient CareYAW [address]B [place] [address] [email or web address] Hematology and Oncology 07/06/17 documented as of this encounter Additional Source Comments The information contained in this document represents components of the legal health record. It is not the complete legal health record.[facility]
--- OUTSIDE RECORDS SUMMARY | 2024-12-28 18:22 | XMS_ITS | Encounter Summary ---
Author Organization [facility] Address 399 [facility] [address] [place] [address] Phone Care Team Providers Care Hospice Team Lead Name Role Phone Arturo Lawrence MD, PhD Unavailable [phone] Brett Sharma NP Primary Care Provider + Encounter Details Date Type Department Care Team (Late st Contact Info) Description 09/28/2022 Procedure Pass [facility] [place] [address] [facility], 6th [place] [address] Social History Tobacco Use Types Packs/Day Years [...] a working camera? Not on file Comments Unknown Sex and Gender Information Value [...] 12/31/2024 3:30 [address] EDT [address] [facility] Center for Hematology [address] [facility], 7th Floor, [address] [place] [address] Arturo Lawrence MD, PhD [address] [place] [address] [address] [address] AURELIA@[facility] 12/31/2024 4:40 PM EDT Office Visit [facility] Center for Hematology [address] [facility], 7th Floor, [address] [place] [address] Arturo Lawrence MD, PhD [address] [place] [address] [address] AURELIA@[facility] 01/11/2025 9:40 AM EDT Office Visit [facility] [address] [facility], [place] [address] [place] [address] Miki Blackwood MD [address] [place] [address] KALPANA@[email or web address] 01/15/2025 9:30 AM EDT Office Visit [facility] Otology [address] [address] Arturo Bunn MD, PhD [address] [place] [address] [email or web address] 01/15/2025 11:30 AM EDT Evaluation [facility] Audiology [address] [address] Arturo Bunn MD, PhD [address] [place] [phone] [email or web address] Alecia Hogan [phone] [place] [address] [email or web address] 04/29/2025 10:30 AM EST Office Visit [facility] 55 [facility], 5th [place] [address] Ranjit Morley MD [address] [facility] [address] [place] [address] MARCELA@[email or web address] 09/24/2025 10:30 AM EDT Office Visit [facility] [address] [facility], [address] [place] [address] Mangus Perze MD 55 [place] [address] [email or web address] documented as of this encounter Visit Diagnoses Not on filedocumented in this encounter Care Teams Hospice Team Lead Relationship Specialty Start Date End Date Brett Sharma NP [address] [place] [address] PCP - General Family Medicine 08/16/21 Arturo Lawrence MD, PhD 55 [facility] Outpatient CareYAW 7B [place] [address] AURELIA@[email or web address] Hematology and Oncology 07/06/17 documented as of this encounter Additional Source Comments The information contained in this document represents components of the legal health record. It is not the complete legal health record.[facility]
--- OUTSIDE RECORDS SUMMARY | 2024-12-28 18:23 | XMS_ITS | Encounter Summary ---
Author Organization [facility] Address [address] [facility] [address] [place] [address] Phone Care Team Providers Care New Car Inspector Name Role Phone Arturo Lawrence MD, PhD Unavailable [phone] Brett Sharma NP Primary Care Provider + Encounter Details Date Type Department Care Team (Late st Contact Info) Description 06/21/2023 Procedure Pass [facility] Cardiology [address], [address] [place], [place] [id number] Social History Tobacco Use Types Packs/Day Years [...] Description 12/31/2024 3:30 PM EDT Blood Draw [facility] Center for Hematology [address] [facility], 7th Floor, [address] [place] [address] Arturo Lawrence MD, PhD [address] [place] [address] [address] AURELIA@[facility] 12/31/2024 4:40 PM EDT Office Visit [facility] Center for Hematology [address] [facility], 7th Floor, [address] [place] [address] Arturo Lawrence MD, PhD [address] [place] [address] [address] AURELIA@[facility] 01/11/2025 9:40 AM EDT Office Visit [facility] [address] [facility], [address] [place] [address] Miki Blackwood MD [address] [place] [address] KALPANA@[facility] 01/15/2025 9:30 AM EDT Office [place] [facility] [place] [address] [address] Arturo Bunn MD, PhD [address] [place] [phone] [email or web address]@[email or web address] 01/15/2025 11:30 AM EDT Evaluation [facility] Audiology [address] [address] Arturo Bunn MD, PhD [address] [place] [address] [email or web address] Alecia Hogan [phone] [place] [address] [email or web address] 04/29/2025 10:30 AM EST Office Visit [facility] 55 [facility], 5th [place] [address] Ranjit Morley MD 15 [facility] 535 [place] [address] MARCELA@[facility] 09/24/2025 10:30 AM EDT Office Visit [facility] Cardiology [facility] [address], [address] [place] [address] Magnus Perez MD 55 [place] [address] [email or web address] documented as of this encounter Visit Diagnoses Not on filedocumented in this encounter Care Teams New Car Inspector Relationship Specialty Start Date End Date Brett Sharma NP [address] [place] [address] PCP - General Family Medicine 08/16/21 Arturo Lawrence MD, PhD [address] [place] [address] Outpatient CareYAW [address] [place] [address] AURELIA@[email or web address] Hematology and Oncology 07/06/17 documented as of this encounter Additional Source Comments The information contained in this document represents components of the legal health record. It is not the complete legal health record.[facility]
--- OUTSIDE RECORDS SUMMARY | 2024-12-28 18:23 | XMS_ITS | Encounter Summary ---
Author Organization [facility] Address [address] [place] [address] Care Team Providers Care Sous Chef Kitchen Manager Name Role Phone Pcp, No Primary Care Provider Brett Luis MD Primary Care Provider [phone] Encounter Details Date Type Department Care Team (Late st Contact Info) Description 02/27/2024 Scanned Document [facility] Plastic & Reconstructive Surgery [address] [place] [address] Michael Long MD [address] [place] [address] [address] [place] [phone] Social History Tobacco Use Types Packs/Day Years [...] Description 03/25/2025 9:00 AM EST Office Visit [facility] Plastic & Reconstructive Surgery [place] [address] [facility] [address] [place] [phone] Michael Long MD 399 [facility] 210 [place] [address] documented as of this encounter Visit Diagnoses Not on filedocumented in this encounter Care Teams Sous Chef Kitchen Manager Relationship Specialty Start Date End Date Pcp, No PCP - General General Medicine 03/04/19 03/02/24 Brett Sharma MD [address] [place] [address] PCP - General Family Medicine 03/03/24 documented as of this encounter
--- OUTSIDE RECORDS SUMMARY | 2024-12-28 18:23 | XMS_ITS | Encounter Summary ---
Author Organization [facility] Address [address] [facility] [address] [place] [address] Phone Care Team Providers Care Development Consultant Name Role Phone Arturo Lawrence MD, PhD Unavailable [phone] Brett Sharma NP Primary Care Provider + Encounter Details Date Type Department Care Team (Latest Contact Info) Description 12/24/[address] [facility] Laboratory 30 [place] [address] Miki Blackwood MD 15 [place] [address] KALPANA@[email or web address] Hypothyroidism, postop (Primary Dx); Thyroid cancer Social History Tobacco Use Types Packs/Day Years [...] Description 12/31/2024 3:30 PM EDT Blood Draw [facility] Center for Hematology [address] [place] [address], [facility], [address] [place] [address] Arturo Lawrence MD, PhD [address] [place] [address] for [address] [address] AURELIA@[facility] 12/31/2024 4:40 PM EDT Office Visit [facility] Center for Hematology [address] [place] [address], 7th Floor, [address] [place] [address] Arturo Lawrence MD, PhD [address] [place] [address] for Outpatient CareYAW [address] [place] [address] AURELIA@[facility] 01/11/2025 9:40 AM EDT Office Visit [facility] [address] [place] [address], [address] [place] [address] Miki Blackwood MD [address] [place] [address] KALPANA@[email or web address] 01/15/2025 9:30 AM EDT Office Visit [facility] Otology [facility] [address] [address] Arturo Bunn MD, PhD [address] [place] [address] [email or web address]@[email or web address] 01/15/2025 11:30 AM EDT Evaluation [facility] Audiology [address] [address] Arturo Bunn MD, PhD [address] [place] [address] [email or web address]@[email or web address] Edison Aleciasparkle Little[place] [address] [place] [phone] [email or web address] 04/29/2025 10:30 AM EST Office Visit [facility] 55 [facility], 5th [place] [address] Ranjit Morley MD [address] [address] MARCELA@[facility] 09/24/2025 10:30 AM EDT Office Visit [facility] Cardiology [facility] 52 [facility], [address] [place] [address] Magnus Perez MD 55 [place] [address] [email or web address] documented as of this encounter Results * Free T3 (12/24/2024 4:54 PM EDT) FREE T3 2.9 2.0 - 4.4 pg/mL [facility] Blood 12/24/2024 4:54 PM EDT 12/24/2024 5:01 PM EDT us Miki Blackwood MD LAB BLOOD ORDERABLES Final Result [address] [address] * Free T4 (12/24/2024 4:54 PM EDT) FREE T4 1.6 0.9 - 1.7 ng/dL [facility] Blood 12/24/2024 4:54 PM EDT 12/24/2024 5:01 PM EDT us Miki Blackwood MD LAB BLOOD ORDERABLES Final Result [address] [address] * TSH (12/24/2024 4:54 PM EDT) TSH 0.47 0.27 - 4.20 uIU/mL [facility] Blood 12/24/2024 4:54 PM EDT 12/24/2024 5:01 PM EDT us Miki Blackwood MD LAB BLOOD ORDERABLES Final Result Performing Organization Address City/[facility]/ZIP Co de Phone Number [address] [address] documented in this encounter Visit Diagnoses Diagnosis Hypothyroidism, postop- Primary Thyroid cancer Malignant neoplasm of thyroid gland documented in this encounter Care Teams Development Consultant Relationship Specialty Start Date End Date Brett Sharma NP [address] [place] [address] PCP - General Family Medicine 08/16/21 Arturo Lawrence MD, PhD [address] [place] [address] AURELIA@[email or web address] Hematology and Oncology 07/06/17 documented as of this encounter Additional Source Comments The information contained in this document represents components of the legal health record. It is not the complete legal health record.[facility]
--- OUTSIDE RECORDS SUMMARY | 2024-12-28 18:23 | XMS_ITS | Encounter Summary ---
Author Organization [facility] Address [address] [place] [address] Care Team Providers Care Process Designer Name Role Phone Brett Sharma MD Primary Care Provider [phone] Encounter Details Date Type Department Care Team (Late st Contact Info) Description 03/04/2024 Scanned Document [facility] Plastic & Reconstructive Surgery [address] [place] [phone] Michael Long MD [address] [place] [address] 210 [place] [address] Social History Tobacco Use Types Packs/Day Years [...] Description 03/25/2025 9:00 AM EST Office Visit [facility] Plastic & Reconstructive Surgery [place] [address] [facility] [address] [place] [address] Michael Long MD 399 [facility] [address] [place] [address] documented as of this encounter Visit Diagnoses Not on filedocumented in this encounter Care Teams Process Designer Relationship Specialty Start Date End Date Brett Sharma MD [address] [place] [address] PCP - General Family Medicine 03/03/24 documented as of this encounter
--- OUTSIDE RECORDS SUMMARY | 2024-12-28 18:23 | XMS_ITS | Encounter Summary ---
Author Organization [facility] Address [address] [place] [address] Phone Care Team Providers Care Baggage Security Checker Name Role Phone Arturo Lawrence MD, PhD Unavailable [phone] Brett Sharma NP Primary Care Provider + Encounter Details Date Type Department Care Team (Late st Contact Info) Description 12/24/2024 Orders Only [facility] [address] [facility], [address] [place] [address] Miki Blackwood MD 15 [place] [address] [email or web address] Hypocalcemia (Primary Dx) Social History Tobacco Use Types [...] Description 12/31/2024 3:30 PM EDT Blood Draw [facility] [address] [place] [address], [facility] Floor, [address] [place] [address] Arturo Lawrence MD, PhD [address] [place] [address] [address] [email or web address] 12/31/2024 4:40 PM EDT Office Visit [facility] Hematology [address] [place] [address], 7th Floor, [address] [place] [address] Arturo Lawrence MD, PhD [address] [place] [address] for Outpatient CareYAW [address] [place] [address] [email or web address] 01/11/2025 9:40 AM EDT Office Visit [facility] [address] [place] [address], Suite [facility] [place] [address] Miki Blackwood MD [address] [place] [address] [email or web address] 01/15/2025 9:30 AM EDT Office Visit [facility] Otology [facility] [address] [address] Arturo Bunn MD, PhD [address] [place] [address] [email or web address] 01/15/2025 11:30 AM EDT Evaluation [facility] Audiology [facility] [address] [address] Arturo Bunn MD, PhD [address] [place] [address] [email or web address] Edison Aleciasparkle Littlejohn [address] [place] [address] [email or web address] 04/29/2025 10:30 AM EST Office Visit [facility] 55 [facility], 5th [place] [address] Ranjit Morley MD [address] [address] [email or web address] 09/24/2025 10:30 AM EDT Office Visit [facility] Cardiology [facility] [address] [facility], [address] [place] [address] Magnus Perez MD 55 [place] [address] [email or web address] documented as of this encounter Results * Parathyroid hormone (PTH) (12/24/2024 4:54 PM EDT) PARATHYROID HORMONE 39 15 - 65 pg/mL [facility] Blood 12/24/2024 4:54 PM EDT 12/24/2024 5:01 PM EDT us Miki Blackwood MD LAB BLOOD ORDERABLES Final Result [address] [address] * Calcium (12/24/2024 4:54 PM EDT) CALCIUM 8.9 8.4 - 10.3 mg/dL [facility] Blood 12/24/2024 4:54 PM EDT 12/24/2024 5:01 PM EDT us Miki Blackwood MD LAB BLOOD ORDERABLES Final Result Performing Organization Address [facility]/ZIP Co de Phone Number [address] [address] * Albumin (12/24/2024 4:54 PM EDT) ALBUMIN 4.6 3.9 - 4.8 g/dL [facility] Blood 12/24/2024 4:54 PM EDT 12/24/2024 5:01 PM EDT us Miki Blackwood MD LAB BLOOD ORDERABLES Final Result Performing Organization Address City/[facility]/ZIP Co de Phone Number [address] [address] * Phosphorus (12/24/2024 4:54 PM EDT) PHOSPHORUS 3.0 2.7 - 4.5 mg/dL [facility] Blood 12/24/2024 4:54 PM EDT 12/24/2024 5:01 PM EDT us Miki Blackwood MD LAB BLOOD ORDERABLES Final Result [address] [address] documented in this encounter Visit Diagnoses Diagnosis Hypocalcemia- Primary documented in this encounter Care Teams Baggage Security Checker Relationship Specialty Start Date End Date Brett Sharma NP [address] [facility] [address] PCP - General Family Medicine 08/16/21 Arturo Lawrence MD, PhD [address] [place] [address] Outpatient CareYA [address] [place] [address] [email or web address] Hematology and Oncology 07/06/17 documented as of this encounter Additional Source Comments The information contained in this document represents components of the legal health record. It is not the complete legal health record.[facility]
--- OUTSIDE RECORDS SUMMARY | 2024-12-28 18:23 | XMS_ITS | Patient Health Record ---
Author Organization [facility] Address [address] [place] [address] Care Team Providers Care Tool Honing Machine Set Up Operator Name Role Phone Rylee Dang Primary Care Provider Raúl Turner Jr Unavailable [phone] Allergies Allergen (clinical drug ingredient) Drug/Non Drug Allergy documented on EMR Reaction Allergy Type Onset Date Status prednisone Prednisone neuropathy Drug Allergy Acti ve Latex Gloves Unknown Drug Allergy Acti ve meperidine Demerol (uncoded) Unknown Allergy A ctive Vicodin (uncoded) Unknown Allergy Ac tive acetaminophen / oxycodone Percocet (uncoded) Unknown Allergy Active Results Component Value Reference Range Notes Ur Preg Test Reviewed date:09/09/2024 08:27:13 AM Interpretation: Performing Lab:[facility], [address] [place] [phone] Notes/Report: Urine NEGATIVE NEGATIVE This test was developed to detect early . False negative results may occur after the 5th - 7th week of when using this test method. If clinically indicated, consider a serum hCG. 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 Problem Dysphagia (31199717) Dysphagia (R13.10) Active confirmed Problem Gastroesophageal reflux disease (278334396) Gastroesophageal reflux disease (K21.9) Active confirmed Problem 808765664 Elevated liver function tests (R79.89) Active confirmed Problem 57720231 Dysphagia, unspecified type (R13.10) Active confirmed Problem 87196985 Hepatic hemangio ma (D18.03) Active confirmed Problem 915452543 Elevated liver function tests (R94.5) Active confirmed Problem 230200740 Gastroesophageal reflux disease, unspecified whether esophagitis present (K21.9) Active confirmed Encounters Encounter Location Date Provider Diagnosis [facility] Outpatient [address] [place] [phone] 09/08/2024 Raúl Pike Jr Gamino esophagus K22.70 [facility] [address] [place] [phone] 12/31/2023 Raúl Pike Jr [facility] [address] [place] [phone] 01/02/2024 Raúl Pike Jr [facility] [address] [place] [phone] 09/11/2024 Raúl Pike Jr [facility] [address] [place] [phone] 09/16/2024 Raúl Pike Jr Assessments Encounter Date Diagnosis (ICD Code) Assessment Notes Treatment Notes Treatment Clinical Notes Section Notes 09/08/2024 Gamino esophagus (ICD-10 - K22.70) Plan Of Treatment Pending Test Test Name Order Date LIVER PROFILE 01/13/2018 MRI ABD W&WO CONTRAST 05/07/2018 US ABD 11/28/2023 Future Test Test Name Order Date UPPER GI ENDOSCOPY 06/21/2022 COLONOSCOPY 06/21/2022 UPPER GI ENDOSCOPY 11/28/2023 Insurance Providers Payer Name Payer Address Payer Phone Subscriber Number Group Number Insured Name Patient Relationship to Insured Coverage Start Date Coverage End Date [facility] [address] [place], [place] [id number] ONDINA WINN Self - patient is the insured Medical (General) History Medical History History ICD Code Asthma hemochromatosis, Dr. Arturo Lawrence [facility] mitral valve prolapse Hepatic hemangioma Elevated liver [...]
--- OUTSIDE RECORDS SUMMARY | 2024-12-28 18:23 | XMS_ITS | Encounter Summary ---
Author Organization [facility] Address [address] [facility] [address] [place] [address] Phone Care Team Providers Care Commissary Worker Name Role Phone Arturo Lawrence MD, PhD Unavailable [phone] Brett Sharma NP Primary Care Provider + Encounter Details Date Type Department Care Team (Latest Contact Info) Description 12/24/2024 Transcribe Orders [facility] Laboratory 30 [place] [address] Miki Blackwood MD 15 [place] [address] [email or web address] Hypothyroidism, postop (Primary Dx); Thyroid cancer Social [...] Description 12/31/2024 3:30 PM EDT Blood Draw [facility] Center for Hematology [address] [place] [address], [facility] Floor, [address] [place] [address] Arturo Lawrence MD, PhD [address] [place] [address] [address] [address] [email or web address] [place] 12/31/2024 4:40 PM EDT Office Visit [facility] Center for Hematology [address] [place] [address], 7th Floor, [address] [place] [address] Arturo Lawrence MD, PhD [address] [place] [address] for Outpatient CareYAW [address] [place] [address] [email or web address] [place] 01/11/2025 9:40 AM EDT Office Visit [facility] Associates [address] [place] [address], [address] [place] [address] Miki Blackwood MD [address] [place] [address] [email or web address] 01/15/2025 9:30 AM EDT Office Visit [facility] Otology [address] [address] Arturo Bunn MD, PhD [address] [place] [address] [email or web address] 01/15/2025 11:30 AM EDT Evaluation [facility] Audiology [address] [address] Arturo Bunn MD, PhD [address] [place] [address] [email or web address] skyler Aleciasparkle Littlejohn [address] [place] [address] [email or web address] 04/29/2025 10:30 AM EST Office Visit [facility]astro[facility]ology Associates 55 [facility], 5th [place] [address] Ranjit Morley MD [address] [address] [email or web address] [place] 09/24/2025 10:30 AM EDT Office Visit [facility] Cardiology [facility] [address] [facility], [address] [place] [address] Magnus Perez MD 55 [place] [address] [email or web address] documented as of this encounter Results * Thyroglobulin, Tumor Marker (12/24/2024 4:54 PM EDT) THYROGLOBULIN 0.5 < or = 33 ng/mL [facility] THYROGLOBULIN AB <1.8 <1.8 IU/mL [facility] THYROGLOBULIN INTRP SEE [...] testing methods are immunoenzymatic assays manufactured by [employer] and performed on the [employer] DXI 800. Values obtained from different assay methods or kits may be different and cannot be used interchangeably. The results cannot be interpreted as absolute evidence for the presence or absence of malignant disease. Blood 12/24/2024 4:54 PM EDT 12/24/2024 5:01 PM EDT us Miki Blackwood MD LAB BLOOD ORDERABLES Final Result [facility] [address] [place] [address] documented in this encounter Visit Diagnoses Diagnosis Hypothyroidism, postop- Primary Thyroid cancer Malignant neoplasm of thyroid gland documented in this encounter Care Teams Commissary Worker Relationship Specialty Start Date End Date Brett Sharma NP [address] [facility] [address] PCP - General Family Medicine 08/16/21 Arturo Lawrence MD, PhD [address] [place] [address] Outpatient [facility] [address] [place] [address] [email or web address] Hematology and Oncology 07/06/17 documented as of this encounter Additional Source Comments The information contained in this document represents components of the legal health record. It is not the complete legal health record.[facility]
--- OUTSIDE RECORDS SUMMARY | 2024-12-28 18:23 | XMS_ITS | Encounter Summary ---
Author Organization [facility] Address [address] [place] [address] Care Team Providers Care Casting Coordinator Name Role Phone Pcp, No Primary Care Provider Brett Luis MD Primary Care Provider [phone] Encounter Details Date Type Department Care Team (Late st Contact Info) Description 02/27/2024 Scanned Document [facility] Plastic & Reconstructive Surgery [address] [place] [address] Michael Long MD [address] [place] [address] [address] [place] [phone] Social History Tobacco Use Types Packs/Day Years [...] Description 03/25/2025 9:00 AM EST Office Visit [facility] Plastic & Reconstructive Surgery [place] [address] [facility] [address] [place] [address] Michael Long MD 399 [facility] Joshua [address] [place] [address] documented as of this encounter Visit Diagnoses Not on filedocumented in this encounter Care Teams Casting Coordinator Relationship Specialty Start Date End Date Pcp, No PCP - General General Medicine 03/04/19 03/02/24 Brett Sharma MD [address] [place] [address] PCP - General Family Medicine 03/03/24 documented as of this encounter
--- OUTSIDE RECORDS SUMMARY | 2024-12-28 18:23 | XMS_ITS | Encounter Summary ---
Author Organization [facility] Address [address] [place] [address] Care Team Providers Care Hot Iron Worker Name Role Phone Brett Sharma MD Primary Care Provider + [phone] Encounter Details Date Type Department Care Team (Late st Contact Info) Description 04/21/2024 Scanned Document [facility] Plastic & Reconstructive Surgery [address] [place] [phone] Mary Solomon LPN [address] [address] Social History Tobacco Use Types Packs/Day Years [...] Description 03/25/2025 9:00 AM EST Office Visit [facility] Plastic & Reconstructive Surgery [place] [address] [facility] [address] [place] [address] Michael Long MD 399 [facility] [address] [place] [address] documented as of this encounter Visit Diagnoses Not on filedocumented in this encounter Care Teams Hot Iron Worker Relationship Specialty Start Date End Date Brett Sharma MD [address] [place] [address] PCP - General Family Medicine 03/03/24 documented as of this encounter
--- OUTSIDE RECORDS SUMMARY | 2024-12-28 18:23 | XMS_ITS | Encounter Summary ---
Author Organization [facility] Address [address] [address] Phone Care Team Providers Care Harp Regulator Name Role Phone Pcp, Not Required Primary Care Provider Arturo Castillo MD, PhD Unavailable [phone] Rylee Zendejas GUARD MANAGER Primary Care Provider Unknown, Unknown Primary Care Provider Rylee Sanchez GUARD MANAGER Primary Care Provider Brett Sharma GUARD MANAGER Primary Care Provider + Reason for Referral * Consultation (Elective) - Closed Specialty Diagnoses / Procedures Referred By Contact Referred To Contact Pediatric Gastroenterology Diagnoses Non-celiac gluten sensitivity System, Provider Not In, PhD [address] [address] Referral ID Status Reason Start Date Expiration Date Visits Re quested Visits Authorized [id number] Closed 08/24/2016 08/24/2017 1 1 Encounter Details Date Type Department Care Team (Latest Contact Info) Description 08/24/2016 Transcribe Orders [facility] [address] [place] [address] Pcp, Not Required [address] [place] [address] Non-celiac gluten sensitivity (Primary Dx); Intestinal malabsorption, unspecified type Social History Tobacco Use Types Packs/Day Years Used Date Smoking Tobacco: Never Comments Unknown Sex and Gender [...] Description 12/31/2024 3:30 PM EDT Blood Draw [facility] Center for Hematology [address] [place] [address], [address] [place] [address], [address] [place] [address] Arturo Lawrence MD, PhD [address] [place] [address] [address] [email or web address] 12/31/2024 4:40 PM EDT Office Visit [facility] Center for Hematology [address] [place] [address], [address] [place] [address], [address] [place] [address] Arturo Lawrence MD, PhD [address] [place] [address] [address] [email or web address] 01/11/2025 9:40 AM EDT Office Visit [facility] Thyroid Associates [address] [place] [address] [address] [place] [address] Miki Blackwood MD [address] [place] [address] [email or web address] 01/15/2025 9:30 AM EDT Office Visit [facility] Otology [address] [address] Arturo Bunn MD, PhD [address] [place] [address] [email or web address] 01/15/2025 11:30 AM EDT Evaluation [facility] Audiology [address] [address] Arturo Bunn MD, PhD [address] [place] [address] [email or web address] Alecia Hogan [phone] [place] [address] [email or web address] 04/29/2025 10:30 AM EST Office Visit [facility] Gastroenterology Associates 55 [facility], 5th [place] [address] Ranjit Morley MD [address] [address] [email or web address] 09/24/2025 10:30 AM EDT Office Visit [facility] Cardiology [place] [facility] [address] [facility], [address] [place] [address] Magnus Perez MD [address] [place] [address] [email or web address] Scheduled Referrals Name Type Priority Associated Diagnoses Orde r Schedule Ambulatory referral to [facility] Pediatric GI/Nutrition Outpatient Referral Routine Non-celiac gluten sensitivity Ordered: 08/24/2016 documented as of this encounter Visit Diagnoses Diagnosis Non-celiac gluten sensitivity- Primary Intestinal malabsorption, unspecified type documented in this encounter Care Teams Harp Regulator Relationship Specialty Start Date End Date Pcp, Not Required [address] [place] [address] PCP - General 08/24/16 04/26/19 Rylee Zendejas NP [address] [place] [address] [email or web address] PCP - General Family Medicine 04/27/19 06/15/19 Unknown, MD Cesario [address] [place] [address] PCP - General 06/16/19 06/22/19 Rylee Zendejas NP [address] [place] [address] [place] [address] [email or web address] [facility] PCP - General Family Medicine 06/23/19 08/15/21 Brett Sharma, SELWYN [address] [place] [address] [place] [address] PCP - General Family Medicine 08/16/21 Arturo Lawrence MD, PhD [address] [place] [address] Outpatient CareW [address] [place] [address] [email or web address] Hematology and Oncology 07/06/17 documented as of this encounter Additional Source Comments The information contained in this document represents components of the legal health record. It is not the complete legal health record.[facility]
--- OUTSIDE RECORDS SUMMARY | 2024-12-28 18:23 | XMS_ITS | Encounter Summary ---
Author Organization [facility] Address [address] [place] [address] Care Team Providers Care Bobbin Trucker Name Role Phone Brett Sharma MD Primary Care Provider + [phone] Encounter Details Date Type Department Care Team (Late st Contact Info) Description 03/04/2024 Scanned Document [facility] Plastic & Reconstructive Surgery [address] [place] [address] Michael Long MD [address] [place] [address] 210 [place] [address] Social History Tobacco Use Types Packs/Day Years [...] 9:00 AM EST Office Visit [facility] Plastic & Reconstructive Surgery [place] [address] [facility] [address] [place] [address] Michael Long MD 399 [facility] [address] [place] [address] documented as of this encounter Visit Diagnoses Not on filedocumented in this encounter Care Teams Bobbin Trucker Relationship Specialty Start Date End Date Brett Sharma MD [address] [place] [address] PCP - General Family Medicine 03/03/24 documented as of this encounter
== END 2024-12-28 15:12 | disposition home or self-care (01) ==
LOC: HO.LAB 15:11
PROVIDERS: PCP Nurse Practitioner Family; Visit Provider Allergy & Immunology
DX: J45.21 Mild intermittent asthma with (acute) exacerbation (principal); T88.7XXA Unspecified adverse effect of drug or medicament, initial encounter; J30.9 Allergic rhinitis, unspecified
CPT/HCPCS: 36415; 82785

== ENCOUNTER 2025-01-19 07:59 | Outpatient (RCR) | payer OTHER, SELFPAY ==
--- NOTE | 2024-12-18 08:58 | MHC.PT.EP ---
[facility] [place] Office [place] Office [place] Office [address] [phone] F: [phone] F: [phone] F: [phone] F: [phone] Physical Therapy Plan of Care Date of Evaluation: 12/18/24 Date of Surgery: NA Diagnosis: Cervicalgia Assessment: Camryn is a 49 year old female who is referred to PT for cervicalgia . She reports of having gradual onset of pain about 7-8 months back. She denies any trauma or falls but reports of having p/h/o neck pain following thyroid surgery which resolved with PT. On PT examination she presented with TTP over B UT and spinous process from C2 to T4, 3-4/10 pain with neck rotation and flexion, decreased neck ROM, decreased shoulder ROM, decreased scap strength and altered posture. She lives with her family and is independent with all ADLS but has pain with them. 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 She would benefit from skilled PT to address the aforementioned impairments and improve tolerance to functional activities. Frequency and Duration: The patient will be seen 2/week for 5 weeks Short Term Goals: 1. Pt will have 50% decrease in pain which will enable her to sleep through the night in 2 weeks. 2. Pt will be able to move her neck through full plane of motion without pain which will enable her to drive without pain in 3 weeks Departmental Shipping Clerk Goals: 1. Pt will demonstrate an increase in muscle strength by 1 grade which will enable her to perform all ADLS without pain in 5 weeks 2. Pt will be independent with all HEP for symptom management and maintenance following d/c in 5 weeks. Treatment Plan: Modalities to reduce pain, spasms and effusion. Manual therapy to restore motion and function. Therapeutic exercise to improve strength and flexibility. Neuromuscular re-education for posture and balance. Therapeutic activities to return to functional activities of daily living. Electronically signed by: Sarah Sullivan PT DPT Please sign and return to therapist. Thank you for your referral.
--- NOTE | 2025-01-25 08:24 | MHC.PT.DC ---
[facility] [place] Office [place] Office [place] Office [address] Rosei Hodge [address] [phone] F: [phone] F: [phone] F: [phone] F: [phone] Physical Therapy Discharge Report Diagnosis: Cervicalgia Date of Surgery: NA Date of Evaluation: 12/18/24 Date of Discharge: 01/25/25 Treatments to Date: 6 Cancellations to Date: 0 No Shows to Date: 0 Discharge Status: Patient Elected to Stop Discharge Summary: Camryn came for her 5th PT visit with sudden onset of severe pain in her neck and R UE and she denied having any trauma or injury. A few days after that visit she went to the ED due to increased pain and weakness R UE. She was seen by neurosurgery and recommended surgery for neck. She is therefore being d/c from PT. Electronically signed by: Sarah [place] PT DPT Please sign and return to therapist. Thank you for your referral.
== END 2025-01-25 08:24 | disposition home or self-care (01) ==
LOC: HO.PT 07:59
PROVIDERS: PCP Nurse Practitioner Family; Visit Provider Nurse Practitioner Family
DX: M54.2 Cervicalgia (principal)
CPT/HCPCS: 97110; 97112; 97140; 97161; 97530

== ENCOUNTER 2025-02-01 09:27 | Outpatient (REF) | payer OTHER, SELFPAY ==
[2025-02-01 13:06] LABS: MANUAL DIFF FLAG NO
[2025-02-01 13:11] LABS: Hematocrit 42.4 % (37.0-47.0); Hemoglobin 14.1 g/dl (12.0-16.0); Imm Gran Abs Auto 0.03 X10*3/uL (0.00-0.03); Imm Gran Pct Auto 0.5 % (0.0-0.4); Lymphocytes Absolute Auto 1.3 X10*3/uL (1.2-4.9); Mean Corpuscular HGB Conc 33.3 g/dl (31.0-35.0); Mean Corpuscular Hemoglobin 30.7 pg (27.0-33.0); Mean Corpuscular Volume 92.4 fL (80.0-98.0); NRBC Abs Auto 0.000 X10*3/uL (0.0-0.012); NRBC Pct Auto 0.0 /100WBC (0.0-0.2); Platelet Count 293 X10*3/uL (160-400); Red Blood Count 4.59 X10*6/uL (4.20-5.50); White Blood Count 5.8 X10*3/uL (4.8-10.8)
[2025-02-01 13:19] LABS: INTERNATIONAL NORM RATIO 1.0 (0.9-1.1); Prothrombin Time 11.0 SEC (10.9-12.4)
[2025-02-01 13:20] LABS: Appearance Urine Clear; Glucose Urine UA Negative (Negative); PH 5.5 (5.0-9.0); Specific Gravity - Urine 1.015 (1.005-1.025)
[2025-02-01 13:21] LABS: Partial Thromboplastin Time 25.2 SEC (26.7-34.1)
[2025-02-01 13:41] LABS: Alanine Aminotransferase 20 U/L (0-31); Albumin Level 4.2 g/dL (3.5-5.0); Alkaline Phosphatase 52 U/L (39-117); Anion Gap 11 (12-20); Aspartate Amino Transferase 18 U/L (5-31); Blood Urea Nitrogen 16 mg/dL (9-16); Calcium 8.6 mg/dL (8.4-10.2); Carbon Dioxide 25 mmol/L (22-29); Chloride 111 mmol/L (96-108); Estimated Glomerular Filt Rate > 60; Potassium 3.4 mmol/L (3.3-5.1); Sodium 144 mmol/L (135-145); Total Protein 6.3 g/dL (6.5-8.0)
== END 2025-02-01 09:28 | disposition home or self-care (01) ==
LOC: HO.HMGCLDS 09:27
PROVIDERS: PCP Nurse Practitioner Family; Visit Provider Nurse Practitioner Family
DX: Z01.818 Encounter for other preprocedural examination (principal); E83.119 Hemochromatosis, unspecified; Z85.850 Personal history of malignant neoplasm of thyroid
CPT/HCPCS: 36415; 80053; 81003; 84443; 85025; 85610; 85730; 96127

== ENCOUNTER 2025-02-01 09:27 | Outpatient (AMB) | payer OTHER, SELFPAY ==
--- OUTSIDE RECORDS SUMMARY | 2023-08-19 06:40 | XMS_ITS ---
Author Organization [facility] Address [address] [place] [address] Care Team Providers Care Conductor/Engineer Name Role Phone Rylee Dang Primary Care Provider Raúl Turner Jr REASON FOR VISIT Patient presents today for hepatic hemangioma Encounters Encounter Location Date Provider Diagnosis [facility] [address] [place] [address] 08/19/2023 Raúl Pike Jr Plan Of Treatment No Information Progress Notes * BRYON WINNB:1975 ( 49 yo F)Acc No.[id number]:08/19/2023 Progress Notes Patient: ONDINA VILLEDA Provider: Ulices Pike MD :1975 A ge:47 Y S ex:Female Date:08/19/2023 Address:[address] [facility] Pcp:Rylee Dang Subjective: * Chief Complaints: * [...] 0 08/19/2023 Generated for Chitra ordaz/Consuelo/eTransmitting on: 1 09:31 AM EDT
--- OUTSIDE RECORDS SUMMARY | 2024-09-08 04:20 | XMS_ITS ---
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 Self's. * Medical History: Objective: * Vitals: Assessment: * Assessment: 1. B arrett esophagus - K22.70 (Primary) Plan: * Treatment: * Procedure Codes: 4 3239 UPPER GI ENDOSCOPY, BIOPSY * * The named appointment provid er may or may not be the originator of this progress note, and it is not deemed complete until electronically signed by the appointment provider. Sign off status: Pending * Provider: Ulices Pike MD Date: 0 09/08/2024 Generated for Chitra ordaz/Consuelo/Oscar on: 09:32 AM EDT
--- OUTSIDE RECORDS SUMMARY | 2025-01-27 09:00 | XMS_ITS | Encounter Summary ---
Author Organization Formerly [facility] Address [address] [place] [id number] Care Team Providers Care Workers' Compensation Mediator Name Role Phone Brett Shamra MD Primary Care Provider + [phone] Isis Young RN Unavailable [phone] Reason for Visit * Reason Comments Neck Pain * Neurosurgery (Routine) - Closed Specialty Diagnoses / Procedures Referred By Contac t Referred To Contact Surgery, Neurosurgery / Neurosurgery Diagnoses Spinal stenosis of cervical region Brett Sharma MD [address] [facility] [place] Phone: tel: fax: Tip Campos MD [address] [address] Phone: tel: fax: Referral ID Status Reason Start Date Expiration Date V isits Requested Visits Authorized [id number] Closed Consult 01/21/2025 01/22/2026 1 1 Encounter Details Date Type Department Care Team (Late st Contact Info) Description 01/27/2025 9:00 AM EDT Consult [facility] Neuro[facility] [address] [place] [address] [phone] Tip Campos MD [address] [address] Cervical disc disorder with radiculopathy (Primary Dx) Social History Tobacco Use Types [...] AM EST documented as of this encounter Last Filed Vital Signs Vital Sign Reading Time Taken Comments Blood Pressure - - Pulse 107 01/27/2025 9:10 AM EDT Temperature 36.7 C (98 F) 01/27/2025 9:10 AM EDT Respiratory Rate - - Oxygen Saturation 98% 01/27/2025 9:10 AM EDT Inhaled Oxygen Concentration - - Weight 65.8 kg (145 lb) 01/27/2025 9:10 AM EDT V erbal Given. Height 162.6 cm (5' 4.02 ) 01/27/2025 9:10 AM ED T Verbal Given. Body Mass Index 24.88 01/27/2025 9:10 AM EDT documented in this encounter Patient Instructions * Patient Instructions* Tip Campos MD - 01/27/2025 8:53 AM EDT Images from the original note were not included. MRI side view (facet to R) View from feet (face up, R is L) Your MRI shows disc bulges/arthritis narrowing the space around your nerves at C4-5 (on the R) and to a less extent at C5-6 (more on the left). This can cause shooting pain down your arm and potentially weakness of your R shoulder, but should not cause facial numbness or twitching (the nerves in your neck do not go to your face, and your brain MRI looks normal). It also should not cause numbness in your 4th-5th fingers. You may also have thoracic outlet syndrome (narrowing around the nerves in your upper chest/shoulder) - this cause cause pain in your shoulder/arm and numbness in your fingers (worse raising arm overhead) but should not cause weakness raising your shoulder (deltoid muscle). Fortunately, there is no pressure on your spinal cord to suggest you need emergency surgery, but since your R arm is getting weaker, I recommend an operation to take the pressure off your nerves - atleast at C4-5 and probably C5-6. X-rays bending front Bending back Your neck/shoulder/arm pain are from arthritis in your neck pushing on the nerves leaving your spine. If you have surgery with me, your operation would be at [facility] and would involve a 2-3 incision on the front of your neck and taking out the discs/bone spurs at C4-5 and probably C5-6 thenfusing the bones together with at metal plate/screws & replacing the discs with cadaver bone plugs (anterior cervical discectomy/fusion C4-5 or C4-6). The operation takes about 2-3 and you generally spend 1 night in the hospital. Recovery to light activity is 6 weeks and full activity 6 months in general. We could also try an injection in your neck. You should avoid advil/motrin/ibuprofen/alleve/naproxen for and take calcium/vitamin D supplements for 6 months after surgery. documented in this encounter Progress Notes * Tip Campos MD - 01/27/2025 11:30 AM EDT Images from the original note were not included. Assessment & Plan Ms. 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 I believe this would best be accomplished through an anterior approach -an ACDF C4-6. I explained to Camryn that her facial numbness/twitching is not directly related to her cervical pathology, and she reportedly was diagnosed with thoracic outlet syndrome by an orthopedic surgeon recently, though this does not explain her proximal weakness or decreased C5/6 reflexes. The risks, benefits, indications, alternatives and methods of an anterior cervical diskectomy and instrumented fusion with plate/screws using local autograft & cadaveric allograft bone C4-6 were explained in detail to Ms. Quach. Risks include but are not limited to , coma, paralysis, stroke, bleeding, infection, pain, numbness, weakness, nerve damage, swallowing/talking problems, hardware failure/malpositioning, non-union, CSF leak, heart attack, blood clots, and need for more surgery. Alteratives include no treatment, injections, disc arthoplasty, posterior decompression w/wo fusion, laminoplasty, PT, acupuncture, chiropractor, massage therapy, bracing or medical therapy. All questions were answered. No guarantees were made. Surgical techniques were reviewed using patient's imaging. She seemed to understand and agreed to proceed. Subjective Camryn Quach is a 49 y.o. right-handed female who is being evaluated for Neck Pain as requested by Brett Sharma MD. She developed right neck pain in July 2024. She was in PT from September through December without any significant relief. The pain worsened in October and radiated to her right upper arm with numbness in her 4th/5th digits. The pain is worse with reaching, looking up or turning her head to the right. Shetingling but she says she is about the arm. Around 01/08/2025, she developed severe neck and right shoulder pain with new difficulty raising her arm. The pain has improved, but her deltoid has gotten progressively weaker. 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 The pain and weakness gets worse later in the day. Lyrica has helped her pain, but not her strength. The following portions of the patient's history were reviewed and updated as appropriate: allergies, current medications, past family history, past medical history, past social history, past surgicalhistory and problem list. Review of Systems: Weight Change: Yes Chills: No Fever: No Eye redness: No Eye pain: No Rash: No Skin color change: No Sore throat: No Ear pain: No Stuffy nose: No Hearing loss: Yes Sneezing: No Runny nose: No Ringing in the ears: Yes Leg swelling: No Palpitations: Yes Shortness of breath: Yes Wheezing: No Chest tightness: No Joint pains: No Back pain: Yes Muscle pains: No Joint swelling: No Nervous/anxious: No Sleep disturbance: Yes Confusion: No Cold intolerance: No Heat intolerance: No Painful urination: No Frequent urination: No Loss of bladder control: No Blood in urine: No Easy bruising/bleeding: No Swollen glands: No Abdominal pain: No Nausea: No Vomiting: No Constipation: No Tremors: No Numbness: Yes Weakness: Yes Dizziness: Yes Seizures: No Headaches: Yes Food allergies: Yes Environmental allergies: Yes Low immune system: No Objective Physical Exam: Pulse (!) 107 Temp 98 ??F (36.7 ??C) (Temporal) Ht 1.626 m (5' 4.02 ) Comment: Verbal Given. Wt 65.8 kg (145 lb) Comment: Verbal Given. SpO2 98% BMI 24.88 kg/m?? 3-4/5 R deltoid. 4+/5 R biceps/tricep. 3+ x4 except 1+ R biceps No javier/toes Constitutional: in no acute distress and healthy appearing. Head and Face: atraumatic and head normocephalic. Eyes: the sclera and conjunctiva were normal. ENT: the ears and nose were normal in appearance and mucous membranes were moist. Neck: the appearance of the neck was normal: supple w/ no stridor. Pulmonary: normal respiratory rhythm and effort and non-labored breathing. Neurologic: Mental status: alert and oriented, speech & memory grossly intact. Cranial Nerves: cranial nerves II - XII grossly intact. Motor: grossly, strength is full with normal bulk and tone. 5/5 x4 except R deltoid 2-3/5 and biceps/triceps 4+/5. Reflexes 2+ left biceps & bilateral triceps, patella, achilles. 1+ right biceps. Toes down going bilaterally. Negative Javier's sign bilaterally. No ankle clonus. Gait: the balance and gait were normal. Spine: Cervical spine: positive spurling's maneuver on R. Vascular: extremities warm and well perfused. Skin: normal skin color and pigmentation. Results: MRI of the cervical spine 01/17/25 & 01/24/25 reveals R canal/foraminal narrowing at C4-5 and bilateral C5-6 foraminal narrowing. There does not appear to be any significant cord compression. Cervical X-rays today revealed decreased ROM C4-6 without instability. I personally reviewed the imaging and radiologist's interpretation. I spent a total of 52 minutes during the same date of this visit on [id number] evaluation of the patient, reviewing relevant clinical data, communicating with patient's providers and/or documentation of the encounter. Tip Campos MD documented in this encounter Plan of Treatment Upcoming Encounters Date Type Department Care Team (Late st Contact Info) Description 02/05/2025 8:15 AM EDT Hospital Encounter [facility] [address] [place] [phone] Tip Campos MD [address] [address] 02/05/2025 8:15 AM EDT - 02/05/2025 12:30 PM EDT Surgery [facility] [address] [place] [phone] Tip Campos MD [address] [address] ACDF 4-6 02/19/2025 10:00 AM EDT Office Visit [facility] [place] [address] [phone] Leatha Mc PA 85 [facility] [address] [place] [address] 03/25/2025 9:00 AM EST Office Visit [facility] [place] [address] [facility] [address] [place] [phone] Michael Long MD 399 [facility] [address] [place] [address] Scheduled Procedures Name Priority Associated Diagnoses Date/Ti me FUSION ANTERIOR CERVICAL DISC Cervical disc prolapse with radiculopathy 02/05/2025 8:15 AM EDT Scheduled Referrals Name Type Priority Associated Diagnoses Order Schedule Amb Referral to Neurosurgery Outpatient Referral Routine Spinal stenosis of cervical region Ordered: 01/21/2025 documented as of this encounter Visit Diagnoses Diagnosis Cervical disc disorder with radiculopathy- Primary Other and unspecified disc disorder of cervical region Cervical disc prolapse with radiculopathy documented in this encounter Care Teams Workers' Compensation Mediator Relationship Specialty Start Date End Date Brett Sharma MD [address] [place] [address] PCP - General Family Medicine 03/03/24 Isis Young RN [address] [place] [address] Nurse Navigator Surgery, Neurosurgery 01/25/25 documented as of this encounter
--- OUTSIDE RECORDS SUMMARY | 2025-02-01 09:31 | XMS_ITS | Clinical Summary ---
Author Organization [facility] Address [address] [place] [phone] Phone Care Team Providers Care [employer] Supervisor Name Role Phone Brett Sharma NP Primary Care Provider Allergies Active Allergy Reactions Criticality Noted Date Comments Amoxicillin-Pot Clavulanate Anaphylaxis High 10/19/2013 Cinnamon 12/31/2023 Doxycycline Anaphylaxis High 05/03/2017 Hydrocodone-Acetaminophen Swelling 05/03/2017 Ibuprofen Anaphylaxis High 12/31/2023 Latex Rash Low 05/21/2019 Meperidine Swelling 05/03/2017 Morphine 09/12/2021 Other Rash Low 04/04/2017 turnips Oxycodone-Acetaminophen Rash,Swelling Low 8 Prednisone Medium 08/28/2022 Other Reaction(s): Other (See Comments) [place] Hives Medium 04/04/2017 Tramadol Itching Low 09/12/2023 [...] for your loved ones. For example, child care group leader or elderly care for an older adult? [...] Date Recorded What is your living situation? Unrecognized valu e 05/27/2024 Comments Unknown Sex and Gender Information [...] EST Office Visit Obstetrics and Gynecology - [address] [place] [phone] Faustina Weaver MD [address] [place] [address] [place], [place] [id number] Health Maintenance Due Date Last Done Comments Breast Cancer Screening 1975 Colorectal Cancer Screening: Colonoscopy 1975 Hepatitis B Vaccines (1 of 3 - 19+ 3-dose series) 09/14/1995 COVID-19 Vaccine (6 - Mixed Product risk [...] (2 - Td or Tdap) 08/18/2033 08/19/2023 RSV Immunization Adult Patients (1 - 1-dose 75+ series) 09/14/2051 MMR Vaccines Aged Out 09/16/2018 No longer [...] Results * Cervical Cancer Screening: HPV (12/31/2023) [facility] Cervical Cancer Screening: HPV Negative, Abstracted [facility] Provider HEALTH MAINTENANCE Final Result * HIV Screening (10/17/2022) [facility] HIV Screening Abstracted [facility] Provider HEALTH MAINTENANCE Final Result * Hepatitis C Screening (10/17/2022) [facility] Hepatitis C Screening Abstracted [facility] Provider HEALTH MAINTENANCE Final Result from Last 3 Months or Most Recently Relevant to Health Maintenance Insurance Care Teams [employer] Supervisor Relationship Specialty Start Date End Date Brett Sharma NP [address] [place], [place] PCP - General Family Medicine 09/11/21
--- OUTSIDE RECORDS SUMMARY | 2025-02-01 09:31 | XMS_ITS | Clinical Summary ---
Author Organization [facility] Address [address] [place] [address] Care Team Providers Care Nickel Operator Name Role Phone Brett Sharma MD Primary Care Provider [phone] Isis Young RN Unavailable [phone] Allergies Active Allergy Reactions Criticality Noted Date Comments Amoxicillin-Pot Clavulanate Anaphylaxis High 10/19/2013 Cinnamon Unknown/Patient and Family Unable to Define Medium 12/31/2023 Doxycycline Anaphylaxis High 05/03/2017 Hydrocodone-Acetamin ophen Swelling Medium 05/03/2017 Ok with tylenol Ibuprofen Shortness Of Breath,Anaphylaxis High 12/31/2023 Delayed hypersensitivity reaction Cephalexin Anaphylaxis High 01/27/2025 Latex Rash/Dermatitis,Unk nown/Patient and Family Unable to Define Medium 05/21/2019 Meperidine Swelling,Unknown/Pa tient and Family Unable to Define Medium 05/03/2017 Morphine Itching,Swelling Medium 10/19/2013 Prednisone Other (See Comments) Medium 08/28/2022 Neuropathy Strawberries Hives Medium 04/04/2017 Tramadol Unknown/Patient and Family Unable to Define Medium 09/12/2023 Made me feel funny Valacyclovir Other (See Comments) Medium 08/28/2022 Medications Symbicort 160-4.5 MCG/ACT inhaler Inhale 2 puffs as needed. 09/05/19 24 Active celeCOXIB (CeleBREX) 100 MG capsule Take 1 capsule (100 mg total) by mouth 2 (two) times a day. 09/24/19 24 Active levothyroxine (SYNTHROID, LEVOTHROID) 125 MCG tablet Take 1 tablet (125 mcg total) by mouth every morning. 10/16/19 24 Active levalbuterol (XOPENEX HFA) 45 mcg/puff inhaler Inhale 2 puffs every 4 (four) hours as needed. 06/20/19 24 Active HYDROmorphone (DILAUDID) 2 MG tabletIndicatio ns:Abdominal pannus,Umbilica l hernia without obstruction and without gangrene Take 1 tablet (2 mg total) by mouth every 4 (four) hours as needed for moderate pain or severe pain. Max Daily Amount: 12 mg 18 tablet 01/02/20 Active Additional Information Patient not taking.Reason: Other, Informant: Self, Reported on 01/29/2025 calcium carbonate (TUMS) 500 MG chewable tablet Chew 1 tablet (500 mg total) as needed. Active Restasis 0.05 % ophthalmic emulsion Administer 1 drop to both eyes twice daily (every 12 hours). 01/19/20 Active montelukast (SINGULAIR) 10 MG tablet Take 1 tablet (10 mg total) by mouth nightly. 01/19/20 Active OMEprazole (PriLOSEC) 20 MG capsule Take 1 capsule (20 mg total) by mouth every morning before breakfast. Active acetaminophen (TYLENOL) 500 MG tablet Take 2 tablets (1,000 mg total) by mouth 4 times daily (every 6 hours) as needed for mild pain. Active carboxymethylce llulose (REFRESH PLUS) 0.5 % Solution Administer 1 drop to both eyes 4 (four) times a day as needed for dry eyes. Active pregabalin (LYRICA) 50 MG capsuleIndicati ons:Cervical stenosis of spine Take 1 capsule (50 mg total) by mouth 3 (three) times a day. 90 capsule 01/26/20 25 Active Albuterol-Budes onide 90-80 MCG/ACT Aerosol Inhale as needed. Active levonorgestrel (MIRENA) 20 mcg/24hr IUD 1 Intra Uterine Device by Intrauterine route once. Active busPIRone (BUSPAR) 5 MG tablet Take 1 tablet (5 mg total) by mouth 2 (two) times a day. Active calcitRIOL (ROCALTROL) 0.25 MCG capsule Take 1 capsule (0.25 mcg total) by mouth every morning. 02/26/20 23 025 Discontin ued(Thera py completed ) albuterol (PROVENTIL) (0.083%) 2.5 mg/3 mL nebulizer solution INHALE 1 AMP EVERY 4 HOURS NEEDED 09/24/19 Discontin ued(Med List Clean-up/ Old Med - No E-Cancel/ No AVS) acyclovir (ZOVIRAX) 200 mg capsule Take 2 capsules (400 mg total) by mouth. 11/14/19 Discontin ued(Stop Taking at Discharge ) Auvi-Q 0.3 MG/0.3ML auto-injection INJECT NEEDED FOR SEVERE ALLERGIC REACTION INCLUDING ANAPHYLAXIS DIRECTED AND THEN CALL 911 12/16/19 Discontin ued(Med List Clean-up/ Old Med - No E-Cancel/ No AVS) esomeprazole (NexIUM) 40 MG capsule every morning. Discontin ued(Med List Clean-up/ Old Med - No E-Cancel/ No AVS) norethindrone (AYGESTIN) 5 MG tablet Take 1 tablet (5 mg total) by mouth every morning. Discontin ued(Med List Clean-up/ Old Med - No E-Cancel/ No AVS) Xiidra 5 % Solution INSTILL 1 DROP INTO BOTH EYES TWICE A DAY Ophthalmic for 30 Discontin ued(Med List Clean-up/ Old Med - No E-Cancel/ No AVS) diazepam (VALIUM) 5 MG tabletIndicatio ns:Abdominal pannus,Umbilica l hernia without obstruction and without gangrene Take 1 tablet (5 mg total) by mouth 4 times daily (every 6 hours) as needed for anxiety. 15 tablet 12/26/19 Discontin ued(Med List Clean-up/ Old Med - No E-Cancel/ No AVS) famotidine (PEPCID) 40 MG tablet Take 1 tablet (40 mg total) by mouth 2 (two) times a day as needed. 03/11/20 Discontin ued(Med List Clean-up/ Old Med - No E-Cancel/ No AVS) PANTOprazole (PROTONIX) 40 MG EC tablet Take 1 tablet (40 mg total) by mouth. 11/02 Discontin ued(Dose adjustmen t) diazepam (VALIUM) 5 MG tabletIndicatio ns:Diastasis recti Take 1 tablet (5 mg total) by mouth 3 times daily (every 8 hours) as needed for muscle spasms. 10 tablet 03/26/20 Discontin ued(Med List Clean-up/ Old Med - No E-Cancel/ No AVS) Airsupra 90-80 MCG/ACT Aerosol Take 2 puffs by mouth every 4 (four) hours as needed. 01/19/20 Discontin ued(Stop Taking at Discharge ) gabapentin (NEURONTIN) 300 MG capsule Take 1 capsule (300 mg total) by mouth nightly. 01/02/20 Discontin ued(Stop Taking at Discharge ) PANTOprazole (PROTONIX) 20 MG tablet Take 1 tablet (20 mg total) by mouth. 01/19/20 Discontin ued(Med List Clean-up/ Old Med - No E-Cancel/ No AVS) Active Problems Problem Noted Date Diagnosed Date Chest pain 01/25/2025 Tachycardia, paroxysmal 01/25/2025 Assessment & Plan (01/25/2025 3:15 AM EDT): Patient presented with incidental finding of heart rate of 170-175/min on her Apple watch tracing Patient endorses palpitations with lightheadedness and chest pressure Patient with known history of mitral valve prolapse mild posterior leaflet trace MR. As noted per echo on September/2024. Troponin initially 51-->58--->58 Anticipating likely troponin elevation related to tachycardia EKG reviewed showed sinus tachycardia done on arrival rate 125 bpm left axis deviation Patient with positive family history of coronary artery disease specially mother approximately around age of 50 TSH was 0.47 in 01/14, free T41.6, free T32.9 Continue cardiac telemetry Mg 2.1 K 3.8 Elevated troponin 01/25/2025 Assessment & Plan (01/25/2025 3:15 AM EDT): Patient presented with incidental finding of heart rate of 170-175/min on her Apple watch tracing Patient endorses palpitations with lightheadedness and chest pressure Patient with known history of mitral valve prolapse mild posterior leaflet trace MR. As noted per echo on September/2024. Troponin initially 51-->58--->58 Anticipating likely troponin elevation related to tachycardia EKG reviewed showed sinus tachycardia done on arrival rate 125 bpm left axis deviation Patient with positive family history of coronary artery disease specially mother approximately around age of 50 TSH was 0.47 in 01/14, free T41.6, free T32.9 Continue cardiac telemetry Mg 2.1 K 3.8 Gastroesophageal reflux dise ase with esophagitis without hemorrhage 01/25/2025 Assessment & Plan (01/25/2025 2:14 AM EDT): Continue pantoprazole 40 mg daily History of asthma 01/25/2025 Assessment & Plan (01/25/2025 2:14 AM EDT): With history of asthma she uses Symbicort as outpatient History of thyroid cancer 01/25/2025 Assessment & Plan (01/25/2025 2:14 AM EDT): Status post total thyroidectomy on 0 02/12/2023 benign 9-year-old with 7 mm incidental PTC Patient has hypoparathyroidism and postoperative hypothyroidism. 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 Per most recent hematology note the last lobotomy was done in August/2021. Hypoparathyroidism after procedure 01/25/2025 Assessment & Plan (01/25/2025 2:14 AM EDT): Status post total thyroidectomy on 0 02/12/2023 benign 9-year-old with 7 mm incidental PTC Patient has hypoparathyroidism and postoperative hypothyroidism. Continue on 25 mcg Synthroid per home dose Continue calcium carbonate 1000 mg per home dose continue calcitriol 0.25 mcg per home dose Acquired hypothyroidism 01/25/2025 Assessment & Plan (01/25/2025 2:14 AM EDT): Status post total thyroidectomy on 0 02/12/2023 benign 9-year-old with 7 mm incidental PTC Patient has hypoparathyroidism and postoperative hypothyroidism. Continue on 25 mcg Synthroid per home dose Continue calcium carbonate 1000 mg per home dose continue calcitriol 0.25 mcg per home dose Cervical stenosis of spine 01/25/2025 Assessment & Plan (01/25/2025 2:14 AM EDT): Patient with previous history of C4-C5 bilateral neuroforaminal narrowing at C5- C6 Repeated MRI today showed multilevel cervical spondylosis no any acute intracranial abnormality Patient evaluated neurosurgery in the ED initially for concern of cord alert due to weakness right upper extremity/stroke MRI brain and MRI cervical spine with no any acute pathology Neurosurgery signed off, patient to continue home medication DVT prophylaxis as required as well Resolved Problems Problem Noted Date Diagnosed Date Resolved Date Asthma exacerbation, mild 03/03/2024 Encounters Date Type Department Care Team Description 02/01/2025 Orders Only [facility] [address] [phone] Tip Campos MD Dysphonia (Primary Dx) 01/29/2025 Travel 01/29/2025 Telephone [facility] [address] [place] [phone] Isis Young RN Advice Only 01/27/2025 9:00 AM EDT Consult [facility] [address] [place] [phone] Tip Campos MD Cervical disc disorder with radiculopathy (Primary Dx) 01/27/2025 Telephone [facility] [address] [place] [address] Tip Campos MD surgery 01/27/2025 Scanned Document [facility] [address] [place] [address] Tip Campos MD 01/27/2025 Travel 01/26/2025 Telephone [facility] [place] [address] [facility] [address] [place] [phone] Isis Young RN Establish Care 01/24/2025 7:30 PM EDT - 01/25/2025 3:33 PM EDT Hospital Encounter [facility] Emergency Department [address] [place] [phone] Jaswinder Valentine MD Alkasir, Amr, MD Khan, Sana, MD Cervical stenosis of spine (Primary Dx); Cervical stenosis of spinal canal; Chest pain Discharge Disposition: Home or Self Care 01/24/2025 Travel 01/22/2025 11:20 AM EDT Ancillary Procedure [facility] [address] [place] [phone] Provider, File Room 01/22/2025 Orders Only [facility] [address] [phone] Tip Campos MD Cervical disc disorder with radiculopathy (Primary Dx) 01/22/2025 Scanned Document [facility] [id number] [id number] [place] [address] Tip Campos MD 01/21/2025 Transcribe Orders [facility] [place] [address] [facility] [address] [place] [address] Neurosurgery, Scan Spinal stenosis of cervical region (Primary Dx) 01/17/2025 Orders Only [facility] [address] [place] [phone] Provider, File Room from Last 3 Months Social History Tobacco Use Types Packs/Day Years Used Date Smoking Tobacco: Never Smokeless Tobacco: Never Tobacco Cessation:Counseling Given: Not Answered Alcohol Use Standard Drinks/Week Comments Yes 0 (1 standard drink = 0.6 oz pur e alcohol) occ AUDIT-C Answer Date Recorded Q1: How often do you have a drink containing alc ohol? 2-4 times a month 01/29/2025 Q2: How many drinks containi ng alcohol do you have on a typical day when you are drinking? 1 or 2 01/29/2025 Q3: How often do you have si x or more drinks on one occasion? Never 01/29/2025 Comments Unknown Sex and Gender Information Value Date Recorded Sex Assigned at Female 03/03/2024 11:57 AM EST Legal Sex Female 1:15 PM EST Gender Identity Female 03/03/2024 11:57 AM EST Sexual Orientation Heterosexual (straight) 03/03 11:57 AM EST Last Filed Vital Signs Vital Sign Reading Time Taken Comments Blood Pressure 114/56 01/25/2025 2:07 PM EDT Pulse 107 01/27/2025 9:10 AM EDT Temperature 36.7 C (98 F) 01/27/2025 9:10 AM EDT Respiratory Rate 18 01/25/2025 2:07 PM EDT Oxygen Saturation 98% 01/27/2025 9:10 AM EDT Inhaled Oxygen Concentration - - Weight 63.5 kg (140 lb) 01/29/2025 11:49 AM EDT Height 162.6 cm (5' 4 ) 01/29/2025 11:49 AM EDT Body Mass Index 24.03 01/29/2025 11:49 AM EDT Plan of Treatment Upcoming Encounters Date Type Department Care Team (Late st Contact Info) Description 02/05/2025 8:15 AM EDT Hospital Encounter [facility] [address] [place] [phone] Tip Campos MD [address] [phone] 02/05/2025 8:15 AM EDT - 02/05/2025 12:30 PM EDT Surgery [facility] [address] [place] [phone] Tip Campos MD [address] [address] ACDF [id number] 02/19/2025 10:00 AM EDT Office Visit [facility] [place] [address] [facility] [address] [place] [phone] Leatha Mc PA 85 [facility] [address] [place], [place] [phone] 03/25/2025 9:00 AM EST Office Visit [facility] [place] [address] [facility] [address] [place] [address] Michael Long MD [address] [facility] [address] [place] [address] Scheduled Procedures Name Priority Associated Diagnoses Date/Ti me FUSION ANTERIOR CERVICAL DISC Cervical disc prolapse with radiculopathy 02/05/2025 8:15 AM EDT Health Maintenance Due Date Last Done Comments Hepatitis C Virus Screening 1976 HIV Screening 1989 DTaP/Tdap/Td Vaccines (1 - Tdap) 09/14/1995 Hepatitis B Vaccines (1 of 3 - 19+ 3-dose series) 09/14/1995 Pap Smear (Ages 21-65) 1997 Mammogram 2016 Colonoscopy 2021 COVID-19 Vaccine Completed 01/05/2025, 12/2023, 01/27/2023, Additional history exists Influenza Vaccine Completed 01/22/2025, , 12/16/2023, Additional history exists Pneumococcal Vaccine: Pediatric (0-5 Years) and At-Risk Patients (6 to 49 Years) Aged Out No longer eligible based on patient's age to complete this topic Goals Goal Patient Goal Type Associated Problems Recent Progress Patient-Stated? Author Autogenerat ed Goal Care Plan Autogenerated Problem No Chaparro Maravilla MA Procedures Procedure Name Priority Date/Time Associated Diagnosis Comments HIGH SENSITIVITY TROPONIN T CARD 01/25/2025 3:31 AM EDT ECG 12-LEAD STAT 01/25/2025 2:58 AM EDT MAGNESIUM CARD 01/24/2025 11:49 PM EDT HIGH SENSITIVITY TROPONIN T CARD 01/24/2025 11:49 PM EDT HIGH SENSITIVITY TROPONIN T CARD 01/24/2025 10:59 PM EDT MRI CERVICAL SPINE W/O CONTRAST STAT 01/24/2025 10:41 PM EDT MRI BRAIN W/O CONTRAST STAT 10:41 PM EDT COMPREHENSIVE METABOLIC PANEL STAT 01/24/2025 8:06 PM EDT COMPLETE BLOOD COUNT, WITH DIFFERENTIAL STAT 01/24/2025 8:06 PM EDT HIGH SENSITIVITY TROPONIN T CARD 01/24/2025 8:06 PM EDT ECG 12-LEAD Routine 01/24/2025 7:20 PM EDT MR SPINE ARCHIVE FOR REFERENCE ONLY Routine 01/22/2025 11:15 AM EDT from Last 3 Months Results * (ABNORMAL) High Sensitivity Troponin T (Once) (01/25/2025 3:31 AM EDT) Only the most recent of4 resultswithin the time period is included. High Sensitivity Troponin T 38(H) <15 ng/L 01/25/2025 4:07 AM EDT [facility] Delta (Change) 13(H) <3 01/25/2025 4:07 AM EDT [facility] Comment:Decreased Blood Blood specimen / Unknown 01/25/2025 3:31 AM EDT 01/25/2025 3:35 AM EDT Zaira Stewart MD LAB BLOOD ORDERABLES Final Resul t [facility] [address] [place] [address], [facility] [address] [place] [address] * ECG 12 lead (01/25/2025 2:58 AM EDT) Only the most recent of2 resultswithin the time period is included. Pathologist [facility] Ventricular rate 99 BPM EKG [facility] Atrial rate 99 BPM EKG [facility] P-R interval 182 ms EKG [facility] QRS duration 88 ms EKG [facility] Q-T interval 344 ms EKG [facility] QTC calculation (Bazett) 442 ms EKG [facility] P axis 60 degrees EKG [facility] R axis -52 degrees EKG [facility] T axis 30 degrees [facility] 01/25/2025 2:58 AM EDT Narrative EKG [facility] - 01/25/2025 12:02 PM EDT Normal sinus rhythm Left axis deviation Inferior infarct (cited on or before 24-Jan-2025) Cannot rule out Anterior infarct (cited on or before 24-Jan-2025) Abnormal ECG When compared with ECG of 24-Jan-2025 19:20, No significant change was found Confirmed by MD Forte Eric ([id number]) on 01/25/2025 12:02:53 PM Procedure Note Golden Forte MD - 01/25/2025 Normal sinus rhythm Left axis deviation Inferior infarct (cited on or before 24-Jan-2025) Cannot rule out Anterior infarct (cited on or before 24-Jan-2025) Abnormal ECG When compared with ECG of 24-Jan-2025 19:20, No significant change was found Confirmed by MD Forte Eric ([id number]) on 01/25/2025 12:02:53 PM Jaswinder Valentine MD ECG ORDERABLES Final Result [facility] * Magnesium (01/24/2025 11:49 PM EDT) Magnesium 2.1 1.6 - 2.7 mg/dL 01/25/2025 2:44 AM EDT [facility] 01/24/2025 11:4 9 PM EDT 01/25/2025 12:01 AM EDT Jaswinder Valentine MD LAB BLOOD ORDERABLES Final Res ult Performing Organization Address City/State/[facility] Co de Phone Number [facility] [address] [place] [address], [facility] [address] [place] [address] * MRI Cervical spine w/o contrast (01/24/2025 10:41 PM EDT) Anatomical Region Laterality Modality C-spine Magnetic Resonan ce 01/24/2025 9:42 PM EDT Addenda Addendum by Capo Constantino MD on 01/26/2025 8:50 AM EDT ADDENDUM #1 Results Acknowledgement: This was communicated to Dr. Jaswinder Valentine by a physician functional support analyst at 11:25 PM on 01/24/2025. Impressions 01/24/2025 11:19 PM EDT 1. No acute intracranial abnormality. 2. Multilevel cervical spondylosis as detailed. At C4-C5, there is disc osteophyte complex asymmetric to the right with right paracentral disc protrusion. Moderate spinal canal narrowing with mass effect and mild indentation of the right anterior aspect of the cervical spinal cord. Severe right and mild left foraminal stenosis. At C5-C6, there is severe left and moderate to severe right foraminal stenosis. Narrative 01/24/2025 11:19 PM EDT EXAMINATION: MRI BRAIN AND CERVICAL SPINE WITHOUT CONTRAST CLINICAL INFORMATION: Right facial paresthesia. Right upper extremity weakness. Concern for cervical spine compression. COMPARISON: Cervical spine radiograph 07/27/2024. TECHNIQUE: Noncontrast multiplanar multisequence MRI of the brain and cervical spine. FINDINGS: HEAD: No restricted diffusion to suggest acute or subacute infarct. No evidence of intracranial hemorrhage. The ventricles and cortical sulci are normal. There is no mass effect or midline shift. No significant chronic microangiopathy. No extra-axial collections.The brainstem and cerebellum appear unremarkable. The major intracranial flow voids appear preserved. Minimal mucosal thickening of ethmoid air cells. Otherwise the paranasal sinuses and bilateral mastoids are clear. Normal osseous marrow signal. CERVICAL SPINE: Mild reversal of cervical lordosis. The cervical vertebral bodies demonstrate normal height. 2 mm retrolisthesis of C4 over C5 and C5 over C6. Mild multilevel intervertebral disc space narrowing. Disc desiccation at multiple levels. The paraspinous soft tissues appear unremarkable. The cervical spinal cord demonstrate normal signal. C2-C3: Left uncovertebral hypertrophy. No significant spinal canal or foraminal stenosis. C3-C4: Mild disc osteophyte complex. No spinal canal stenosis. Mild left foraminal narrowing. No right foraminal stenosis. C4-C5: Disc osteophyte complex asymmetric to the right with right paracentral disc protrusion. Moderate spinal canal narrowing with mass effect and mild indentation of the right anterior aspect of cervical spinal cord. Severe right and mild left foraminal stenosis. C5-C6: Disc osteophyte complex with uncovertebral hypertrophy. Bilateral facet arthropathy, left greater than right. Mild spinal canal narrowing. Severe left and moderate to severe right foraminal stenosis. C6-C7: Disc osteophyte complex and bilateral facet arthropathy. No significant spinal canal stenosis. Mild to moderate bilateral foraminal stenosis. C7-T1: No spinal canal or foraminal stenosis. Procedure Note Capo Constantino MD - 01/24/2025 EXAMINATION: MRI BRAIN AND CERVICAL SPINE WITHOUT CONTRAST CLINICAL INFORMATION: Right facial paresthesia. Right upper extremity weakness. Concern for cervical spine compression. COMPARISON: Cervical spine radiograph 07/27/2024. TECHNIQUE: Noncontrast multiplanar multisequence MRI of the brain and cervical spine. FINDINGS: HEAD: No restricted diffusion to suggest acute or subacute infarct. No evidence of intracranial hemorrhage. The ventricles and cortical sulci are normal. There is no mass effect or midline shift. No significant chronic microangiopathy. No extra-axial collections.The brainstem and cerebellum appear unremarkable. The major intracranial flow voids appear preserved. Minimal mucosal thickening of ethmoid air cells. Otherwise the paranasal sinuses and bilateral mastoids are clear. Normal osseous marrow signal. CERVICAL SPINE: Mild reversal of cervical lordosis. The cervical vertebral bodies demonstrate normal height. 2 mm retrolisthesis of C4 over C5 and C5 over C6. Mild multilevel intervertebral disc space narrowing. Disc desiccation at multiple levels. The paraspinous soft tissues appear unremarkable. The cervical spinal cord demonstrate normal signal. C2-C3: Left uncovertebral hypertrophy. No significant spinal canal or foraminal stenosis. C3-C4: Mild disc osteophyte complex. No spinal canal stenosis. Mild left foraminal narrowing. No right foraminal stenosis. C4-C5: Disc osteophyte complex asymmetric to the right with right paracentral disc protrusion. Moderate spinal canal narrowing with mass effect and mild indentation of the right anterior aspect of cervical spinal cord. Severe right and mild left foraminal stenosis. C5-C6: Disc osteophyte complex with uncovertebral hypertrophy. Bilateral facet arthropathy, left greater than right. Mild spinal canal narrowing. Severe left and moderate to severe right foraminal stenosis. C6-C7: Disc osteophyte complex and bilateral facet arthropathy. No significant spinal canal stenosis. Mild to moderate bilateral foraminal stenosis. C7-T1: No spinal canal or foraminal stenosis. IMPRESSION: 1. No acute intracranial abnormality. 2. Multilevel cervical spondylosis as detailed. At C4-C5, there is disc osteophyte complex asymmetric to the right with right paracentral disc protrusion. Moderate spinal canal narrowing with mass effect and mild indentation of the right anterior aspect of the cervical spinal cord. Severe right and mild left foraminal stenosis. At C5-C6, there is severe left and moderate to severe right foraminal stenosis. Jaswinder Valentine MD [place] MRI ORDERABLES Edited Resu lt - Final * MRI Brain w/o contrast (01/24/2025 10:41 PM EDT) Anatomical Region Laterality Modality Head Magnetic Resonan ce 01/24/2025 9:43 PM EDT Addenda Addendum by Capo Constantino MD on 01/26/2025 8:50 AM EDT ADDENDUM #1 Results Acknowledgement: This was communicated to Dr. Jaswinder Valentine by a physician functional support analyst at 11:25 PM on 01/24/2025. Impressions 01/24/2025 11:19 PM EDT 1. No acute intracranial abnormality. 2. Multilevel cervical spondylosis as detailed. At C4-C5, there is disc osteophyte complex asymmetric to the right with right paracentral disc protrusion. Moderate spinal canal narrowing with mass effect and mild indentation of the right anterior aspect of the cervical spinal cord. Severe right and mild left foraminal stenosis. At C5-C6, there is severe left and moderate to severe right foraminal stenosis. Narrative 01/24/2025 11:19 PM EDT EXAMINATION: MRI BRAIN AND CERVICAL SPINE WITHOUT CONTRAST CLINICAL INFORMATION: Right facial paresthesia. Right upper extremity weakness. Concern for cervical spine compression. COMPARISON: Cervical spine radiograph 07/27/2024. TECHNIQUE: Noncontrast multiplanar multisequence MRI of the brain and cervical spine. FINDINGS: HEAD: No restricted diffusion to suggest acute or subacute infarct. No evidence of intracranial hemorrhage. The ventricles and cortical sulci are normal. There is no mass effect or midline shift. No significant chronic microangiopathy. No extra-axial collections.The brainstem and cerebellum appear unremarkable. The major intracranial flow voids appear preserved. Minimal mucosal thickening of ethmoid air cells. Otherwise the paranasal sinuses and bilateral mastoids are clear. Normal osseous marrow signal. CERVICAL SPINE: Mild reversal of cervical lordosis. The cervical vertebral bodies demonstrate normal height. 2 mm retrolisthesis of C4 over C5 and C5 over C6. Mild multilevel intervertebral disc space narrowing. Disc desiccation at multiple levels. The paraspinous soft tissues appear unremarkable. The cervical spinal cord demonstrate normal signal. C2-C3: Left uncovertebral hypertrophy. No significant spinal canal or foraminal stenosis. C3-C4: Mild disc osteophyte complex. No spinal canal stenosis. Mild left foraminal narrowing. No right foraminal stenosis. C4-C5: Disc osteophyte complex asymmetric to the right with right paracentral disc protrusion. Moderate spinal canal narrowing with mass effect and mild indentation of the right anterior aspect of cervical spinal cord. Severe right and mild left foraminal stenosis. C5-C6: Disc osteophyte complex with uncovertebral hypertrophy. Bilateral facet arthropathy, left greater than right. Mild spinal canal narrowing. Severe left and moderate to severe right foraminal stenosis. C6-C7: Disc osteophyte complex and bilateral facet arthropathy. No significant spinal canal stenosis. Mild to moderate bilateral foraminal stenosis. C7-T1: No spinal canal or foraminal stenosis. Procedure Note Capo Constantino MD - 01/24/2025 EXAMINATION: MRI BRAIN AND CERVICAL SPINE WITHOUT CONTRAST CLINICAL INFORMATION: Right facial paresthesia. Right upper extremity weakness. Concern for cervical spine compression. COMPARISON: Cervical spine radiograph 07/27/2024. TECHNIQUE: Noncontrast multiplanar multisequence MRI of the brain and cervical spine. FINDINGS: HEAD: No restricted diffusion to suggest acute or subacute infarct. No evidence of intracranial hemorrhage. The ventricles and cortical sulci are normal. There is no mass effect or midline shift. No significant chronic microangiopathy. No extra-axial collections.The brainstem and cerebellum appear unremarkable. The major intracranial flow voids appear preserved. Minimal mucosal thickening of ethmoid air cells. Otherwise the paranasal sinuses and bilateral mastoids are clear. Normal osseous marrow signal. CERVICAL SPINE: Mild reversal of cervical lordosis. The cervical vertebral bodies demonstrate normal height. 2 mm retrolisthesis of C4 over C5 and C5 over C6. Mild multilevel intervertebral disc space narrowing. Disc desiccation at multiple levels. The paraspinous soft tissues appear unremarkable. The cervical spinal cord demonstrate normal signal. C2-C3: Left uncovertebral hypertrophy. No significant spinal canal or foraminal stenosis. C3-C4: Mild disc osteophyte complex. No spinal canal stenosis. Mild left foraminal narrowing. No right foraminal stenosis. C4-C5: Disc osteophyte complex asymmetric to the right with right paracentral disc protrusion. Moderate spinal canal narrowing with mass effect and mild indentation of the right anterior aspect of cervical spinal cord. Severe right and mild left foraminal stenosis. C5-C6: Disc osteophyte complex with uncovertebral hypertrophy. Bilateral facet arthropathy, left greater than right. Mild spinal canal narrowing. Severe left and moderate to severe right foraminal stenosis. C6-C7: Disc osteophyte complex and bilateral facet arthropathy. No significant spinal canal stenosis. Mild to moderate bilateral foraminal stenosis. C7-T1: No spinal canal or foraminal stenosis. IMPRESSION: 1. No acute intracranial abnormality. 2. Multilevel cervical spondylosis as detailed. At C4-C5, there is disc osteophyte complex asymmetric to the right with right paracentral disc protrusion. Moderate spinal canal narrowing with mass effect and mild indentation of the right anterior aspect of the cervical spinal cord. Severe right and mild left foraminal stenosis. At C5-C6, there is severe left and moderate to severe right foraminal stenosis. us Jaswinder Valentine MD IMG MRI ORDERABLES Edited Resu lt - Final * Complete Blood Count, with Differential (01/24/2025 8:06 PM EDT) White Blood Cell Count 9.3 4.0 - 11.0 Thou/uL 01/24/2025 9:07 PM [facility] Platelet Count 364 150 - 450 Thou/uL 01/24/2025 9:07 PM [facility] Hemoglobin 15.2 11.7 - 15.7 g/dL 01/24/2025 9:07 PM [facility] Hematocrit 45.1 35.0 - 47.0 % 01/24/2025 9:07 PM [facility] Red Blood Cell Count 5.10 4.00 - 5.40 Mil/uL 01/24/2025 9:07 PM [facility] MCV 88 80 - 100 fL 01/24/2025 9:07 PM [facility] MCH 29.8 26.0 - 34.0 pg 01/24/2025 9:07 PM [facility] MCHC 33.7 30.0 - 36.0 g/dL 01/24/2025 9:07 PM [facility] RDW 14.1 11.5 - 14.5 % 01/24/2025 9:07 PM [facility] MPV 10.0 7.5 - 12.5 fL 01/24/2025 9:07 PM [facility] Neutrophils Auto 65.3 % 01/25/20 9:07 PM [facility] Immature Granulocytes 1.0 % 01/24/2025 9:07 PM [facility] Lymphocytes Auto 24.4 % 01/25/20 9:07 PM [facility] Monocytes Auto 7.8 % 01/24/2025 9:07 PM [facility] Eosinophils Auto 0.6 % 01/25/20 9:07 PM [facility] Basophils Auto 0.9 % 01/24/2025 9:07 PM EDT [facility] Abs Neutrophils Auto 6.04 2.00 - 7.50 Thou/uL 01/24/2025 9:07 PM EDT [facility] Abs Immature Granulocytes 0.09 0.00 - 0.10 Thou/uL 01/24/2025 9:07 PM EDT [facility] Abs Lymphocytes Auto 2.26 1.50 - 4.50 Thou/uL 01/24/2025 9:07 PM EDT [facility] Abs Monocytes Auto 0.72 0.20 - 1.50 Thou/uL 01/24/2025 9:07 PM EDT [facility] Abs Eosinophils Auto 0.06 0.00 - 0.70 Thou/uL 01/24/2025 9:07 PM EDT [facility] Abs Basophils Auto 0.08 0.00 - 0.20 Thou/uL 01/24/2025 9:07 PM T [facility] Blood Blood specimen / Unknown 01/24/2025 8:06 PM EDT 01/24/2025 8:57 PM EDT us Jaswinder Valentine MD LAB BLOOD [place]AB[place] [address], [place] [address] * (ABNORMAL) Comprehensive Metabolic Panel (01/24/2025 8:06 PM EDT) Glucose 101(H) 65 - 99 mg/dL 01/24/2025 9:59 PM T [facility] Comment:Fasting: <100 mg/dL, Non-Fasting: <200 mg/dL (ADA 2004) Blood Urea Nitrogen (BUN) 23(H) 8 - 21 mg/dL 01/24/2025 9:59 PM EDT [facility] Creatinine 0.78 0.40 - 1.10 mg/dL 01/24/2025 9:59 PM EDT [facility] eGFR >90 >59 01/24/2025 9:59 PM T [facility] Comment:CKD-EPI (2020) in mL /min/1.73 sq meters. Sodium 141 136 - 145 mmol/L [facility] Potassium 3.8 3.4 - 5.3 mmol/L 01/24/2025 9:59 PM [facility] Chloride 108(H) 98 - 107 mmol/L 01/24/2025 9:59 PM [facility] CO2 23 22 - 33 mmol/L 01/24/2025 9:59 PM [facility] Calcium 9.3 8.7 - 10.5 mg/dL 01/24/2025 9:59 PM [facility] Alkaline Phosphatase 59 32 - 122 U/L 01/24/2025 9:59 PM [facility] Aspartate Aminotrans (AST) 15 10 - 50 U/L 01/24/2025 9:59 PM [facility] Alanine Aminotrans (ALT) 17 10 - 50 U/L 01/24/2025 9:59 PM [facility] Bilirubin, Total <0.2(L) 0.2 - 1.0 mg/dL 01/24/2025 9:59 PM [facility] Protein, Total 6.6 6.3 - 8.3 g/dL 01/24/2025 9:59 PM [facility] Albumin 4.1 3.5 - 5.0 g/dL 01/24/2025 9:59 PM [facility] BUN/Creatinine Ratio 29(H) 10.0 - 25.0 Ratio 01/24/2025 9:59 PM [facility] Globulin 2.5 1.5 - 3.9 g/dL 01/24/2025 9:59 PM [facility] Albumin/Globulin Ratio 1.6 1.0 - 3.0 Ratio 01/24/2025 9:59 PM [facility] Anion Gap 10 7 - 17 01/24/2025 9:59 PM [facility] Blood Blood specimen / Unknown 01/24/2025 8:06 PM EDT 01/24/2025 8:57 PM EDT us Jaswinder Valentine MD LAB BLOOD ORDERABLES Final Res ult [address] [address], [address] [address] * MR Spine Archive for Reference Only (01/22/2025 11:15 AM EDT) Pito RAMOS - 01/22/2025 11:15 AM EDT This study has been auto finalized and does not contain a result. us File Room Provider IMG DIGITIZE FILMS Final Resu lt RACHEL [phone] from Last 3 Months Additional Health Concerns Active Problems Noted Date Diagnosed Date Autogenerated Problem 01/28/2025 Insurance Advance Directives * Full Code (Latest Code Status on File) Date Activated Date Inactivated Comments 01/25/2025 1:00 AM * Full Code Date Activated Date Inactivated Comments 03/03/2024 9:09 PM 01/24/2025 7:09 PM * Full Code Date Activated Date Inactivated Comments 03/03/2024 12:17 PM 03/03/2024 9:09 PM Care Teams Nickel Operator Relationship Specialty Start Date End Date Brett Sharma MD [address] [place] [address] PCP - General Family Medicine 03/03/24 Isis Young RN [address] [place] [address] Nurse Navigator Surgery, Neurosurgery 01/25/25
--- OUTSIDE RECORDS SUMMARY | 2025-02-01 09:32 | XMS_ITS | Patient Health Record ---
Author Organization [facility] Address [address] [place] [address] Care Team Providers Care Electromechanical Equipment Assembler Name Role Phone Rylee Dang Primary Care [...] Test Reviewed date:09/09/2024 08:27:13 AM Interpretation: Performing Lab:[facility], [address] [place] [id number] Notes/Report: Urine NEGATIVE NEGATIVE This test was developed to detect early . False negative results may occur after the 5th - 7th week of when using this test method. If clinically indicated, consider a serum hCG. Pathology Reviewed date:09/11/2024 04:05:40 PM Interpretation: Performing Lab:[address] [address] Notes/Report: Reason For Referral No Information Medications Medication SIG (Take, Route, Frequency, Duration) Notes Start Date End Date Status Ventolin HFA 108 (90 Base) MCG/ACT 2 puffs as needed Inhalation every 6 hrs/prn Active Pantoprazole Sodium 40 MG TAKE 1 TABLET BY MOUTH EVERY DAY FOR 30 DAYS; Duration: 90 Active Xiidra 5 % INSTILL 1 DROP INTO BOTH EYES TWICE A DAY Ophthalmic; Duration: 30 Active Symbicort 160-4.5 MCG/ACT 2 puffs Inhala tion Twice a day Active Esomeprazole Magnesium 40 MG TAKE 1 CAPS ULE BY MOUTH EVERY DAY; Duration: 90 Active Levothyroxine Sodium 125 MCG Oral; Duration: 90 Active Calcitriol 0.25 MCG Oral; Duration: 90 Active Immunizations Vaccine Route Administration Date Status Comme nts Influenza Unknown 02/04/2018 Administered Influenza Unknown 11/20/2018 Administered Influenza Unknown 01/27/2020 Administered Influenza Unknown 05/10/2021 Administered Problems Problem Type SNOMED Code ICD Code Onset Dates Problem Status W/U Status Risk Notes Problem Colon cancer screening (860663024) Colon cancer screening (Z12.11) Active confirmed Problem 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 Problem Dysphagia (48308013) Dysphagia (R13.10) Active confirmed Problem Gastroesophageal reflux disease (179228688) Gastroesophageal reflux disease (K21.9) Active confirmed Problem Elevated liver enzymes level (650217676) Elevated liver function tests (R79.89) Active confirmed Problem Dysphagia (12163155) Dysphagia, unspecified type (R13.10) Active confirmed Problem Hepatic hemangioma (22255498) Hepatic hemangioma (D18.03) Active confirmed Problem Elevated liver enzymes level (829417169) Elevated liver function tests (R94.5) Active confirmed Problem Gastroesophageal reflux disease (110070275) Gastroesophageal reflux disease, unspecified whether esophagitis present (K21.9) Active confirmed Encounters Encounter Location Date Provider Diagnosis [facility] Outpatient [address] [place] [id number] 09/08/2024 Raúl Pike Jr Gamino esophagus K22.70 [facility] [address] [place] [phone] 09/11/2024 Raúl Pike Jr [facility] [address] [place] [phone] 09/16/2024 Raúl Pike Jr Assessments Encounter Date [...] Insured Coverage Start Date Coverage End Date [facility] [id number] MUKESH MONTES [id number] ONDINA WINN Self - patient is the insured Medical (General) History Medical History History ICD Code Asthma hemochromatosis, Dr. Arturo Lawrence [facility] mitral valve prolapse Hepatic hemangioma Elevated liver [...]
--- OUTSIDE RECORDS SUMMARY | 2025-02-01 09:32 | XMS_ITS | Encounter Summary ---
Author Organization [facility] Address [address] [place] [address] Care Team Providers Care Sales Support Technician Name Role Phone Pcp, No Primary Care Provider Brett Luis MD Primary Care Provider [phone] Isis Young RN Unavailable Encounter Details Date Type Department Care Team (Late Contact Info) Description 02/27/2024 Scanned Document [facility] Plastic & Reconstructive Surgery [address] [place] [phone] Michael Long MD [address] [place] [address] [address] [place] [address] Social History Tobacco Use Types Packs/Day Years [...] Description 02/05/2025 8:15 AM EDT Hospital Encounter [facility] [address] [place] [phone] Tip Campos MD [address] [phone] 02/05/2025 8:15 AM EDT - 02/05/2025 12:30 PM EDT Surgery [facility] [address] [place] [phone] Tip Campos MD [address] [phone] ACDF 4-6 02/19/2025 10:00 AM EDT Office Visit [facility] Neurosurgery [place] [address] [phone] Leatha Mc PA [address] [phone] 03/25/2025 9:00 AM EST Office Visit [facility] Plastic & Reconstructive Surgery [place] [address] [phone] Michael Long MD [address] [place] [address] Scheduled Procedures Name Priority Associated Diagnoses Date/Ti me FUSION ANTERIOR CERVICAL DISC Cervical disc prolapse with radiculopathy 02/05/2025 8:15 AM EDT documented as of this encounter Visit Diagnoses Not on filedocumented in this encounter Care Teams Sales Support Technician Relationship Specialty Start Date End Date Pcp, No PCP - General General Medicine 03/04/19 03/02/24 Brett Sharma MD [address] [place] [address] PCP - General Family Medicine 03/03/24 Isis Young RN [address] [place] [address] Nurse Navigator Surgery, Neurosurgery 01/25/25 documented as of this encounter
--- OUTSIDE RECORDS SUMMARY | 2025-02-01 09:32 | XMS_ITS | Encounter Summary ---
Author Organization [facility] Address [address] [place] [address] Care Team Providers Care Analytical Chemist Name Role Phone Brett Sharma MD Primary Care Provider [phone] Isis Young RN Unavailable [phone] Encounter Details Date Type Department Care Team (Late Contact Info) Description 03/04/2024 Scanned Document [facility] Plastic & Reconstructive Surgery [address] [place] [address] Michael Long MD [address] [place] [address] [address] [place] [phone] Social History Tobacco Use Types Packs/Day Years [...] Encounters Date Type Department Care Team (Late Contact Info) Description 02/05/2025 8:15 AM EDT Hospital Encounter [facility] [address] [place] [phone] Tip Campos MD [address] [address] 02/05/2025 8:15 AM EDT - 02/05/2025 12:30 PM EDT Surgery [facility] [address] [place] [phone] Tip Campos MD [address] [phone] ACDF 4-6 02/19/2025 10:00 AM EDT Office Visit [facility] Neurosurgery [place] [address] [phone] Leatha Mc PA [address] [phone] 03/25/2025 9:00 AM EST Office Visit [facility] Plastic & Reconstructive Surgery [place] [address] [phone] Michael Long MD [address] [place] [address] Scheduled Procedures Name Priority Associated Diagnoses Date/Ti me FUSION ANTERIOR CERVICAL DISC Cervical disc prolapse with radiculopathy 02/05/2025 8:15 AM EDT documented as of this encounter Visit Diagnoses Not on filedocumented in this encounter Care Teams Analytical Chemist Relationship Specialty Start Date End Date Brett Sharma MD [address] [place] [address] PCP - General Family Medicine 03/03/24 Isis Young RN [address] [place] [address] Nurse Navigator Surgery, Neurosurgery 01/25/25 documented as of this encounter
--- OUTSIDE RECORDS SUMMARY | 2025-02-01 09:32 | XMS_ITS | Encounter Summary ---
Author Organization [facility] Address [address] [place] [address] Care Team Providers Care Car Knocker Name Role Phone Pcp, No Primary Care Provider Brett Luis MD Primary Care Provider [phone] Isis Young RN Unavailable [phone] Encounter Details Date Type Department Care Team (Late Contact Info) Description 02/27/2024 Scanned Document [facility] Plastic & Reconstructive Surgery [address] [place] [phone] Michael Long MD [address] [place] [address] [address] [place] [address] Social History Tobacco Use Types Packs/Day Years [...] Description 02/05/2025 8:15 AM EDT Hospital Encounter [facility] [address] [place] [phone] Tip Campos MD [address] [phone] 02/05/2025 8:15 AM EDT - 02/05/2025 12:30 PM EDT Surgery [facility] [address] [place] [phone] Tip Campos MD [address] [phone] ACDF 4-6 02/19/2025 10:00 AM EDT Office Visit [facility] Neurosurgery [place] [address] [phone] Leatha Mc PA [address] [phone] 03/25/2025 9:00 AM EST Office Visit [facility] Plastic & Reconstructive Surgery [place] [address] [phone] Michael Long MD [address] [place] [address] Scheduled Procedures Name Priority Associated Diagnoses Date/Ti me FUSION ANTERIOR CERVICAL DISC Cervical disc prolapse with radiculopathy 02/05/2025 8:15 AM EDT documented as of this encounter Visit Diagnoses Not on filedocumented in this encounter Care Teams Car Knocker Relationship Specialty Start Date End Date Pcp, No PCP - General General Medicine 03/04/19 03/02/24 Brett Sharma MD [address] [place] [address] PCP - General Family Medicine 03/03/24 Isis Young RN [address] [place] [address] Nurse Navigator Surgery, Neurosurgery 01/25/25 documented as of this encounter
--- OUTSIDE RECORDS SUMMARY | 2025-02-01 09:32 | XMS_ITS | Encounter Summary ---
Author Organization [facility] Address [address] [facility] [address] [place] [address] Phone Care Team Providers Care Program Planner Name Role Phone Arturo Lawrence MD, PhD Unavailable [phone] Brett Sharma NP Primary Care Provider + Encounter Details Date Type Department Care Team (Late st Contact Info) Description 11/30/2021 Procedure Pass [facility] [place] [facility] [address] [facility] [place] [phone] Social History Tobacco Use Types Packs/Day Years [...] Care Team (Late st Contact Info) Description 03/23/2025 3:20 PM EST Office Visit [facility] [address] [facility], [address] [place] [address] Miki Blackwood MD [address] [place] [address] [address] [place] [address] [email or web address] 04/29/2025 10:30 AM EST Office Visit [facility] [address] [facility], 5th [place] [address] Ranjit Morley MD [address] [address] [email or web address] 05/18/2025 8:45 AM EST Evaluation [facility] Audiology [address] [address] Charissa Lew AuD [address] [place] [address] [email or web address] 05/18/2025 9:30 AM EST Office Visit [facility] Otology [address] [address] Arturo Bunn MD, PhD [address] [place] [address] [email or web address] 08/27/2025 9:10 AM EDT Office Visit [facility] [address] [place] [address] Pooja Jacob MD [address] [address] [email or web address] 09/24/2025 10:30 AM EDT Office Visit [facility] Cardiology [place] [facility] [address] [facility] [place] [address] Magnus Perez MD [address] [facility] [address] [place] [address] [email or web address] documented as of this encounter Visit Diagnoses Not on filedocumented in this encounter Care Teams Program Planner Relationship Specialty Start Date End Date Brett Sharma NP [address] [facility] [address] PCP - General Family Medicine 08/16/21 Arturo Lawrence MD, PhD [address] [place] [address] [facility] [address] [place] [address] [email or web address] Hematology and Oncology 07/06/17 documented as of this encounter Additional Source Comments The information contained in this document represents components of the legal health record. It is not the complete legal health record.[facility]
--- OUTSIDE RECORDS SUMMARY | 2025-02-01 09:32 | XMS_ITS | Encounter Summary ---
Author Organization [facility] Address [address] [place] [address] Care Team Providers Care Coal Tram Driver Name Role Phone Brett Sharma MD Primary Care Provider [phone] Isis Young RN Unavailable [phone] Encounter Details Date Type Department Care Team (Late Contact Info) Description 04/21/2024 Scanned Document [facility] Plastic & Reconstructive Surgery [address] [place] [address] Mary Solomon LPN [address] [address] Social History Tobacco Use Types Packs/Day Years [...] Description 02/05/2025 8:15 AM EDT Hospital Encounter [facility] Perioperative Surgical Services 80 [place] [phone] Tip Campos MD [address] [phone] 02/05/2025 8:15 AM EDT - 02/05/2025 12:30 PM EDT Surgery [facility]operative Surgical Services [address] [place] [phone] Tip Campos MD [address] [phone] ACDF 4-6 02/19/2025 10:00 AM EDT Office Visit [facility] Neurosurgery [place] [address] [phone] Leatha Mc PA [address] [address] 03/25/2025 9:00 AM EST Office Visit [facility] Plastic & Reconstructive Surgery [place] [address] [phone] Michael Long MD [address] [place] [address] Scheduled Procedures Name Priority Associated Diagnoses Date/Ti me FUSION ANTERIOR CERVICAL DISC Cervical disc prolapse with radiculopathy 02/05/2025 8:15 AM EDT documented as of this encounter Visit Diagnoses Not on filedocumented in this encounter Care Teams Coal Tram Driver Relationship Specialty Start Date End Date Brett Sharma MD [address] [place] [address] PCP - General Family Medicine 03/03/24 Isis Young, DANE [address] [place] [address] Nurse Navigator Surgery, Neurosurgery 01/25/25 documented as of this encounter
--- OUTSIDE RECORDS SUMMARY | 2025-02-01 09:32 | XMS_ITS | Encounter Summary ---
Author Organization [facility] Address [address] [place] [address] Care Team Providers Care Chemical Educator Name Role Phone Brett Sharma MD Primary Care Provider [phone] Isis Young RN Unavailable [phone] Encounter Details Date Type Department Care Team (Late Contact Info) Description 03/04/2024 Scanned Document [facility] Plastic & Reconstructive Surgery [address] [place] [address] Michael Long MD [address] [place] [address] [address] [place] [phone] Social History Tobacco Use Types Packs/Day Years [...] Description 02/05/2025 8:15 AM EDT Hospital Encounter [facility] Perioperative Surgical Services 80 [place] [phone] Tip Campos MD [address] [address] 02/05/2025 8:15 AM EDT - 02/05/2025 12:30 PM EDT Surgery [facility] Perioperative Surgical Services 80 [place] [phone] Tip Campos MD [address] [phone] ACDF 4-6 02/19/2025 10:00 AM EDT Office Visit [facility] Neurosurgery [place] [address] [phone] Leatha Mc PA [address] [phone] 03/25/2025 9:00 AM EST Office Visit [facility] Plastic & Reconstructive Surgery [place] [address] [address] Michael Long MD [address] [place] [address] Scheduled Procedures Name Priority Associated Diagnoses Date/Ti me FUSION ANTERIOR CERVICAL DISC Cervical disc prolapse with radiculopathy 02/05/2025 8:15 AM EDT documented as of this encounter Visit Diagnoses Not on filedocumented in this encounter Care Teams Chemical Educator Relationship Specialty Start Date End Date Brett Sharma MD [address] [place] [address] PCP - General Family Medicine 03/03/24 Isis Young RN 80 [place] [address] Nurse Navigator Surgery, Neurosurgery 01/25/25 documented as of this encounter
--- OUTSIDE RECORDS SUMMARY | 2025-02-01 09:32 | XMS_ITS | Clinical Summary ---
Author Organization [facility] Address [address] [place] [address] Care Team Providers Care Grain Distributor Name Role Phone Brett Sharma Primary Care Provider [phone] Allergies Active Allergy Reactions Criticality Noted Date Comments Amoxicillin-Pot Clavulanate Anaphylaxis High 10/19/2013 Cinnamon 12/31/2023 Doxycycline Anaphylaxis High 05/03/2017 Hydrocodone-Acetaminoph en Swelling 05/03/2017 Ibuprofen Anaphylaxis High 12/31/2023 Latex Rash Low 05/21/2019 Meperidine Swelling 05/03/2017 Morphine 09/12/2021 Other Rash Low 04/04/2017 turnips Oxycodone-Acetaminophen Rash,Swelling Low 8 Prednisone Other (See Comments) Medium 08/28/2022 Evening Shade Hives Medium 04/04/2017 Tramadol Itching Low 09/12/2023 [...] age to complete this topic Care Teams Grain Distributor Relationship Specialty Start Date End Date Brett Shamra [address] [place] [address] PCP - General Family Medicine 09/11/21
--- OUTSIDE RECORDS SUMMARY | 2025-02-01 09:32 | XMS_ITS | Encounter Summary ---
Author Organization [facility] Address [address] [facility] [address] [place] [address] Phone Care Team Providers Care Director Client Services Name Role Phone Arturo Lawrence MD, PhD Unavailable [phone] Brett Sharma NP Primary Care Provider + Encounter Details Date Type Department Care Team (Late st Contact Info) Description 10/04/2023 Procedure Pass [facility] Cardiology Echo [facility] [place] 52 Counts Include [address] [facility], [address] [place] [address] Social History Tobacco Use Types Packs/Day Years [...] Description 03/23/2025 3:20 PM EST Office Visit [facility] 15 [facility], [address] [place] [address] Miki Blackwood MD 55 [facility] [address] [place] [address] KALPANA@[email or web address] 04/29/2025 10:30 AM EST Office Visit [facility] 55 [facility], 5th [place] [address] Ranjit Morley MD [address] [address] [email or web address] 05/18/2025 8:45 AM EST Evaluation [facility] Audiology [address] [address] Charissa Lew AuD [address] [place] [address] Amanda@[email or web address] 05/18/2025 9:30 AM EST Office Visit [facility] Otology [address] [address] Arturo Bunn MD, PhD [address] [place] [address] [email or web address] 08/27/2025 9:10 AM EDT Office Visit [facility] Cardiovascular Clinic 70 [place] [address] Pooja Jacob MD [address] [address] NINI@[facility] 09/24/2025 10:30 AM EDT Office Visit [facility] 52 [facility], [address] [place] [address] Magnus Perez MD 55 [facility] [address] [place] [address] [email or web address] documented as of this encounter Visit Diagnoses Not on filedocumented in this encounter Care Teams Director Client Services Relationship Specialty Start Date End Date Brett Sharma, SELWYN [address] [facility] [place] [address] PCP - General Family Medicine 08/16/21 Arturo Lawrence MD, PhD 55 [facility] Outpatient CareY[facility] 7B [place] [address] AURELIA@[email or web address] [facility].[facility] Hematology and Oncology 07/06/17 documented as of this encounter Additional Source Comments The information contained in this document represents components of the legal health record. It is not the complete legal health record.[facility]
--- OUTSIDE RECORDS SUMMARY | 2025-02-01 09:33 | XMS_ITS | Encounter Summary ---
Author Organization [facility] Address [address] [address] Phone Care Team Providers Care Talent Acquisition Administrator Name Role Phone Pcp, Not Required Primary Care Provider Unavaila Arturo Tong MD, PhD Unavailable [phone] Rylee Zendejas KAITARA TARAKA Primary Care Provider Unknown, Unknown Primary Care Provider Rylee Sanchez KAITARA TARAKA Primary Care Provider Brett Sharma KAITARA TARAKA Primary Care Provider + Encounter Details Date Type Department Care Team (Late st Contact Info) Description 08/14/2018 Transcribe Orders [facility] Laboratory 30 [place] [address] Arturo Lawrence MD, PhD [address] [place] [address] [address] [email or web address] Social History Tobacco Use Types [...] Description 03/23/2025 3:20 PM EST Office Visit [facility] 15 [facility], [address] [place] [address] Miki Blackwood MD 55 [facility] [address] [place] [address] KALPANA@[email or web address] 04/29/2025 10:30 AM EST Office Visit [facility] 55 [facility], 5th [place] [address] Ranjit Morley MD [address] [address] MARCELA@[email or web address] 05/18/2025 8:45 AM EST Evaluation [facility] Audiology [address] [address] Charissa Lew AuD [address] [place] [address] Amanda@[facility] 05/18/2025 9:30 AM EST Office Visit [facility] Otology [address] [address] Arturo Bunn MD, PhD [address] [place] [address] [email or web address] 08/27/2025 9:10 AM EDT Office Visit [facility] 70 [place] [address] Pooja Jacob MD [address] [address] NINI@[email or web address] 09/24/2025 10:30 AM EDT Office Visit [facility] Cardiology [facility] 52 [facility] 520 [place] [address] Magnus Peerz MD 55 [facility] 5B [place] [address] [email or web address] documented as of this encounter Visit Diagnoses Not on filedocumented in this encounter Care Teams Talent Acquisition Administrator Relationship Specialty Start Date End Date Pcp, Not Required [address] [place] [address] PCP - General 08/24/16 04/26/19 Rylee Zendejas, SELWYN [address] [place] [address] [email or web address] PCP - General Family Medicine 04/27/19 06/15/19 Unknown, Cesario, [address] [place] [address] PCP - General 06/16/19 06/22/19 Rylee Zendejas, SELWYN [address] [place] [address] [place] [address] [email or web address] PCP - General Family Medicine 06/23/19 08/15/21 Brett Sharma NP [address] [place] [address] [place] [address] PCP - General Family Medicine 08/16/21 Arturo Lawrence MD, PhD [address] [place] [address] Outpatient CareYAW [address] [place] [address] [email or web address] Hematology and Oncology 07/06/17 documented as of this encounter Additional Source Comments The information contained in this document represents components of the legal health record. It is not the complete legal health record.[facility]
--- OUTSIDE RECORDS SUMMARY | 2025-02-01 09:33 | XMS_ITS | Encounter Summary ---
Author Organization [facility] Address 399 [facility] [address] [place] [address] Phone Care Team Providers Care Clinical Laboratory Director Name Role Phone Arturo Lawrence MD, PhD Unavailable [phone] Brett Sharma NP Primary Care Provider + Encounter Details Date Type Department Care Team (Late st Contact Info) Description 06/21/2023 Procedure Pass [facility] Cardiology [address] [facility], [address] [place], [place] [phone] Social History Tobacco Use Types Packs/Day Years [...] Description 03/23/2025 3:20 PM EST Office Visit [facility] 15 [facility], [address] [place] [address] Miki Blackwood MD 55 [facility] [address] [place] [address] KALPANA@[email or web address] 04/29/2025 10:30 AM EST Office Visit [facility] 55 [facility], 5th [place] [address] Ranjit Morley MD [address] [address] MARCELA@[email or web address] 05/18/2025 8:45 AM EST Evaluation [facility] Audiology [address] [address] Charissa Lew AuD [address] [place] [address] Amanda@[facility] 05/18/2025 9:30 AM EST Office Visit [facility] Otology [address] [address] Arturo Bunn MD, PhD [address] [place] [address] [email or web address] 08/27/2025 9:10 AM EDT Office [facility] Clinic 70 [place] [address] Pooja Jacob MD [address] [address] NINI@[facility] 09/24/2025 10:30 AM EDT Office Visit [facility] Cardiology [facility] 52 [facility], [address] [place] [address] Magnus Perez MD 55 [facility] [address] [place] [address] [email or web address] documented as of this encounter Visit Diagnoses Not on filedocumented in this encounter Care Teams Clinical Laboratory Director Relationship Specialty Start Date End Date Brett Sharma NP [facility] [place] [address] PCP - General Family Medicine 08/16/21 Arturo Lawrence MD, PhD [address] [place] [address] Outpatient CareYAW 7B [place] [address] [email or web address] Hematology and Oncology 07/06/17 documented as of this encounter Additional Source Comments The information contained in this document represents components of the legal health record. It is not the complete legal health record.[facility]
--- OUTSIDE RECORDS SUMMARY | 2025-02-01 09:33 | XMS_ITS | Encounter Summary ---
Author Organization [facility] Address [address] [facility] [address] [place] [address] Phone Care Team Providers Care Willow Specialists Name Role Phone Arturo Lawrence MD, PhD Unavailable [phone] Brett Sharma NP Primary Care Provider + Encounter Details Date Type Department Care Team (Late st Contact Info) Description 08/28/2022 Procedure Pass [facility], Ct Scan - [address] [address] Social History Tobacco Use Types Packs/Day Years [...] 08/28/2022 4:56 AM Eli Rios, RN * [place] Suicide Severity Rating Scale (Screener/Recent Self-Report) Question Answer Date of Assessment Author 1. Wish to be (Past 1 Month) No 08/28/2022 4:56 AM EDT Mulugeta Tomas RN 2. Non-Specific Active Suicidal Thoughts (Past 1 Month) No 08/28/2022 4:56 AM EDT Mulugeta Tomas RN 6. Suicidal Behavior (Lifetime) No 08/28/2022 4:56 AM EDT Mulugeta Tomas RN documented as of this encounter Plan of Treatment Upcoming Encounters Date Type Department Care Team (Late st Contact Info) Description 03/23/2025 3:20 PM EST Office Visit [facility] 15 [facility], [address] [place] [address] Miki Blackwood MD [address] [place] [address] [address] [place] [address] KALPANA@[email or web address] 04/29/2025 10:30 AM EST Office Visit [facility] [address] [place] [address], 5th [place] [address] Ranjit Morley MD [address] [address] MARCELA@[email or web address] 05/18/2025 8:45 AM EST Evaluation [place] [address] [address] Charissa Lew AuD [address] [place] [address] Amanda@[facility] 05/18/2025 9:30 AM EST Office Visit [place] [address] [address] Arturo Bunn MD, PhD [address] [place] [address] [email or web address] 08/27/2025 9:10 AM EDT Office Visit [facility] Cardiovascular Clinic 70 [place] [address] Pooja Jacob MD [address] [facility] Clinics3 [place] [address] [email or web address] 09/24/2025 10:30 AM EDT Office Visit [facility] Cardiology [place] [facility] 52 [facility], [address] [place] [address] Magnus Perez MD 55 [facility] [address] [place] [address] [email or web address] documented as of this encounter Visit Diagnoses Not on filedocumented in this encounter Care Teams Willow Specialists Relationship Specialty Start Date End Date Brett Sharma NP [address] [place] [address] PCP - General Family Medicine 08/16/21 Arturo Lawrence MD, PhD 55 [facility] Outpatient CareYAW 7[address] [place] [address] AURELIA@[facility].[place].[facility] Hematology and Oncology 07/06/17 documented as of this encounter Additional Source Comments The information contained in this document represents components of the legal health record. It is not the complete legal health record.[facility]
--- OUTSIDE RECORDS SUMMARY | 2025-02-01 09:33 | XMS_ITS | Encounter Summary ---
Author Organization [facility] Address 399 [facility] [address] [place] [address] Phone Care Team Providers Care Customer Engineering Specialist Name Role Phone Arturo Lawrence MD, PhD Unavailable [phone] Brett Sharma NP Primary Care Provider + Encounter Details Date Type Department Care Team (Late st Contact Info) Description 09/28/2022 Procedure Pass [facility] [place] 32 [facility], 6th [place] [address] Social History Tobacco Use Types Packs/Day Years [...] Description 03/23/2025 3:20 PM EST Office Visit [facility] 15 [facility], [address] [place] [address] Miki Blackwood MD 55 [facility] [address] [place] [address] KALPANA@[facility] 04/29/2025 10:30 AM EST Office Visit [facility] 55 [facility], 5th [place] [address] Ranjit Morley MD 15 [facility] 535 [place] [address] MARCELA@[facility] 05/18/2025 8:45 AM EST Evaluation [facility] Audiology [address] [address] Charissa Lew AuD [address] [place] [address] Amanda@[facility] 05/18/2025 9:30 AM EST Office Visit [facility] Otology [address] [address] Arturo Bunn MD, PhD [address] [place] [address] [email or web address] 08/27/2025 9:10 AM EDT Office Visit [facility] Cardiovascular Clinic 70 [place] [address] Pooja Jacob MD [address] [address] NINI@[email or web address] 09/24/2025 10:30 AM EDT Office Visit [facility] Cardiology [facility] [address] [facility], [address] [place] [address] Magnus Perez MD [address] [address] [email or web address] documented as of this encounter Visit Diagnoses Not on filedocumented in this encounter Care Teams Customer Engineering Specialist Relationship Specialty Start Date End Date Brett Sharma NP [address] [facility] [address] PCP - General Family Medicine 08/16/21 Arturo Lawrence MD, PhD 55 [facility] Outpatient CareYAW 7[address] [place] [address] AURELIA@[facility].[facility] Hematology and Oncology 07/06/17 documented as of this encounter Additional Source Comments The information contained in this document represents components of the legal health record. It is not the complete legal health record.[facility]
--- OUTSIDE RECORDS SUMMARY | 2025-02-01 09:33 | XMS_ITS | Encounter Summary ---
Author Organization [facility] Address [address] [place] [address] Care Team Providers Care Leasing Machine Tender Name Role Phone Brett Sharma MD Primary Care Provider [phone] Isis Young RN Unavailable [phone] Encounter Details Date Type Department Care Team ([facility] Contact Info) Description 01/22/2025 Scanned Document [facility] [id number] [address] [address] Tip Campos MD 85 [facility] [address] [place] [phone] Social History Tobacco Use Types Packs/Day Years [...] Upcoming Encounters Date Type Department Care Team ([facility] Contact Info) Description 02/05/2025 8:15 AM EDT Hospital Encounter [facility] Perioperative Surgical Services 80 [place] [address] Tip Campos MD [address] [address] 02/05/2025 8:15 AM EDT - 02/05/2025 12:30 PM EDT Surgery [facility] Perioperative Surgical Services [address] [place] [address] Tip Campos MD [address] [phone] ACDF 4-6 02/19/2025 10:00 AM EDT Office Visit [facility] Neurosurgery [place] [address] [phone] Leatha Mc PA [address] [phone] 03/25/2025 9:00 AM EST Office Visit [facility] Plastic & Reconstructive Surgery [place] [address] [address] Michael Long MD [address] [place] [address] Scheduled Procedures Name Priority Associated Diagnoses Date/Ti me FUSION ANTERIOR CERVICAL DISC Cervical disc prolapse with radiculopathy 02/05/2025 8:15 AM EDT documented as of this encounter Visit Diagnoses Not on filedocumented in this encounter Care Teams Leasing Machine Tender Relationship Specialty Start Date End Date Brett Sharma MD [address] [place] [address] PCP - General Family Medicine 03/03/24 Isis Young, DANE [address] [place] [address] Nurse Navigator Surgery, Neurosurgery 01/25/25 documented as of this encounter
--- OUTSIDE RECORDS SUMMARY | 2025-02-01 09:33 | XMS_ITS | Encounter Summary ---
Author Organization [facility] Address 399 [facility] [address] [place] [address] Phone Care Team Providers Care Furniture Restorer Name Role Phone Arturo Lawrence MD, PhD Unavailable [phone] Brett Sharma NP Primary Care Provider + Encounter Details Date Type Department Care Team (Late st Contact Info) Description 02/12/2023 Procedure Pass [facility] PERIOPERATIVE DEPT [address] [place], [place] [id number] Social History Tobacco Use Types Packs/Day Years [...] Description 03/23/2025 3:20 PM EST Office Visit [facility] [address] [facility], [address] [place] [address] Miki Blackwood MD 55 [facility] [address] [place] [address] [email or web address] 04/29/2025 10:30 AM EST Office Visit [facility] 55 [facility], 5th [place] [address] Ranjit Morley MD [address] [address] [email or web address] 05/18/2025 8:45 AM EST Evaluation [facility] [place] [address] [address] Charissa Lew AuD [address] [place] [address] [email or web address] 05/18/2025 9:30 AM EST Office Visit [facility] [place]ology [address] [address] Arturo Bunn MD, PhD [address] [place] [address] [email or web address] 08/27/2025 9:10 AM EDT Office Visit [facility] Clinic [address] [place] [address] Pooja Jacob MD [address] [address] [email or web address] 09/24/2025 10:30 AM EDT Office Visit [facility] [address] [facility], [address] [place] [address] Magnus Perez MD 55 [facility] [address] [place] [address] [email or web address] documented as of this encounter Visit Diagnoses Not on filedocumented in this encounter Care Teams Furniture Restorer Relationship Specialty Start Date End Date Brett Sharma NP [employer] [facility] [place] [address] PCP - General Family Medicine 08/16/21 Arturo Lawrence MD, PhD [address] [place] [address] Outpatient [facility] [address] [place] [address] [email or web address] Hematology and Oncology 07/06/17 documented as of this encounter Additional Source Comments The information contained in this document represents components of the legal health record. It is not the complete legal health record.[facility]
--- OUTSIDE RECORDS SUMMARY | 2025-02-01 09:33 | XMS_ITS | Encounter Summary ---
Author Organization [facility] Address [address] [place] [address] Care Team Providers Care Mergers And Acquisitions Manager Name Role Phone Brett Sharma MD Primary Care Provider [phone] Isis Young RN Unavailable [phone] Encounter Details Date Type Department Care Team (Late st Contact Info) Description 01/27/[address] [facility] Neurosurgery [place] 100 [facility] [address] [place] [address] Tip Campos MD [address] [place] [address] 1003 [place] [address] Social History Tobacco Use Types Packs/Day Years [...] AM EST documented as of this encounter Functional Status * Audit-C Score Answer Date of Assessment Author 2 01/29/2025 11:53 AM Rogelio Quintero RN * Question Answer Date of Assessment Author AUDIT-C Total Score - Female 2 01/29/2025 11:53 AM Rogelio Quintero RN Q1: How often do you have a drink containing alcohol? 2-4 times a month 01/29/2025 11:53 AM Rogelio Quintero RN Q2: How many drinks containing alcohol do you have on a typical day when you are drinking? 1 or 2 01/29/2025 11:53 AM Rogelio Quintero RN Q3: How often do you have six or more drinks on one occasion? Never 01/29/2025 11:53 AM Rogelio Quintero RN documented as of this encounter Plan of Treatment Upcoming Encounters Date Type Department Care Team (Late st Contact Info) Description 02/05/2025 8:15 AM EDT Hospital Encounter [facility] Perioperative Surgical Services [address] [place] [phone] Tip Campos MD [address] [place] [address] 02/05/2025 8:15 AM EDT - 02/05/2025 12:30 PM EDT Surgery [facility] Perioperative Surgical Services [address] [place] [phone] Tip Campos MD [address] [place] [address] ACDF 4-6 02/19/2025 10:00 AM EDT Office Visit [facility] Neurosurgery [place] [address] [address] Leatha Mc PA [address] [address] 03/25/2025 9:00 AM EST Office Visit [facility] Plastic & Reconstructive Surgery [address] [place] [address] Michael Long MD 399 [facility] 210 [place] [address] Scheduled Procedures Name Priority Associated Diagnoses Date/Ti me FUSION ANTERIOR CERVICAL DISC Cervical disc prolapse with radiculopathy 02/05/2025 8:15 AM EDT documented as of this encounter Visit Diagnoses Not on filedocumented in this encounter Care Teams Mergers And Acquisitions Manager Relationship Specialty Start Date End Date Brett Sharma MD [address] [place] [address] PCP - General Family Medicine 03/03/24 Isis Young, DANE 80 [place] [address] Nurse Navigator Surgery, Neurosurgery 01/25/25 documented as of this encounter
--- OUTSIDE RECORDS SUMMARY | 2025-02-01 09:33 | XMS_ITS | Encounter Summary ---
Author Organization [facility] Address 100 [place] [address] Care Team Providers Care Freelance Court Reporter Name Role Phone Brett Sharma MD Primary Care Provider + [phone] Isis Young RN Unavailable [phone] Encounter Details Date Type Department Care Team (Latest Contact Info) Description 01/27/2025 Travel Social History Tobacco Use Types Packs/Day Years [...] Encounter [facility] Perioperative Surgical Services [address] [place] [address] Tip Campos MD 85 [facility] 1003 [place] [address] 02/05/2025 8:15 AM EDT - 02/05/2025 12:30 PM EDT Surgery [facility] Perioperative Surgical Services [address] [place] [phone] Tip Campos MD [address] [address] ACDF 4-6 02/19/2025 10:00 AM EDT Office Visit [facility] Neurosurgery [place] 85 [facility] [address] [place] [phone] Leatha Mc PA [address] [address] 03/25/2025 9:00 AM EST Office Visit [facility] Plastic & Reconstructive Surgery [place] [address] [phone] Michael Long MD 399 [facility] 210 [place] [address] Scheduled Procedures Name Priority Associated Diagnoses Date/Ti me FUSION ANTERIOR CERVICAL DISC Cervical disc prolapse with radiculopathy 02/05/2025 8:15 AM EDT documented as of this encounter Visit Diagnoses Not on filedocumented in this encounter Care Teams Freelance Court Reporter Relationship Specialty Start Date End Date Brett Sharma MD [address] [place] [address] PCP - General Family Medicine 03/03/24 Isis Young, DANE 80 [place] [address] Nurse Navigator Surgery, Neurosurgery 01/25/25 documented as of this encounter
--- OUTSIDE RECORDS SUMMARY | 2025-02-01 09:33 | XMS_ITS | Encounter Summary ---
Author Organization [facility] Address [address] [place] [address] Care Team Providers Care High Lead Yarder Name Role Phone Brett Sharma MD Primary Care Provider [phone] Isis Young RN Unavailable [phone] Reason for Visit * Reason Onset Date Comments Advice Only 01/29/2025 Encounter Details Date Type Department Care Team (Late st Contact Info) Description 01/29/[address] [place] [address] Isis Young RN 80 [place], [place] [phone] Advice Only Social History Tobacco Use Types Packs/Day Years [...] Quintero RN documented as of this encounter Miscellaneous Notes * Telephone Encounter - Isis Young RN - 01/29/2025 1:58 PM EDT Camryn called. Provided [facility] contact #[phone] to call to schedule appointment. Provided pre-operative, intra-operative, and postoperative phase of care education. Advised for Camryn to clarify allergy inhaler mediations with design transferrer Dr. Yoon. Eased anxieties and concerns regarding intubation, ABCs, and infection risk and antibiotic treatment. Advised for Camryn to follow up with PCP to inquire about potential antianxiety medication(s) she maybe prescribed pre-operatively. NN contact provided, advised to call with questions/concerns. * Telephone Encounter - Isis Young RN - 01/29/2025 10:02 AM EDT Received message from Camryn asking to review surgical questions/concerns and asking where to send FMLA paperwork. Able to leave message, informed to send FMLA to office nurse Viktoriya, advised to call back to clarify questions/concerns regarding surgery. NN contact provided to further discuss. documented in this encounter Plan of Treatment Upcoming Encounters Date Type Department Care Team (Late st Contact Info) Description 02/05/2025 8:15 AM EDT Hospital Encounter [facility] Perioperative Surgical Services 80 [place] [phone] Tip Campos MD [address] [address] 02/05/2025 8:15 AM EDT - 02/05/2025 12:30 PM EDT Surgery [facility] Perioperative Surgical Services 80 [place] [phone] Tip Campos MD [address] [phone] ACDF 4-6 02/19/2025 10:00 AM EDT Office Visit [facility] Neurosurgery [place] [address] [phone] Leatha Mc PA [address] [phone] 03/25/2025 9:00 AM EST Office Visit [facility] Plastic & Reconstructive Surgery [place] [address] [address] Michael Long MD [address] [place] [address] 210 [place] [address] Scheduled Procedures Name Priority Associated Diagnoses Date/Ti me FUSION ANTERIOR CERVICAL DISC Cervical disc prolapse with radiculopathy 02/05/2025 8:15 AM EDT documented as of this encounter Goals Goal Patient Goal Type Associated Problems Recent Progress Patient-Stated? Author Autogenerat ed Goal Care Plan Autogenerated Problem Chaparro Dent [place] documented as of this encounter Visit Diagnoses Not on filedocumented in this encounter Additional Health Concerns Active Problems Noted Date Diagnosed Date Autogenerated Problem 01/28/2025 documented as of this encounter Care Teams High Lead Yarder Relationship Specialty Start Date End Date Brett Sharma MD [address] [place] [address] PCP - General Family Medicine 03/03/24 Isis Young RN 80 [place] [address] Nurse Navigator Surgery, Neurosurgery 01/25/25 documented as of this encounter
--- OUTSIDE RECORDS SUMMARY | 2025-02-01 09:33 | XMS_ITS | Encounter Summary ---
Author Organization [facility] Address [address] [place] [address] Care Team Providers Care Black Top Roller Name Role Phone Brett Sharma MD Primary Care Provider + [phone] Isis Young RN Unavailable [phone] Reason for Referral * ENT (Urgent) - Authorized Specialty Diagnoses / Procedures Referred By Contac t Referred To Contact Otolaryngology Diagnoses Dysphonia Tip Campos MD [address] [place] [address] Phone: tel: fax: Denzel Hale MD [address] [place] [address] Phone: tel: fax: Referral ID Status Reason Start Date Expiration Date Visits Requested Visits Authorized [id number] Authorized Specialty Services Required 02/02/2026 1 1 Comments Prior thyroidectomy w post-op hoarseness, urgent ACDF scheduled 02/05. Please eval vocal cord function w/ laryngoscopy. Thx! Encounter Details Date Type Department Care Team (Late st Contact Info) Description 02/01/2025 Orders Only [facility] Neurosurgery [address] [phone] Tip Campos MD [address] [address] Dysphonia (Primary Dx) Social History Tobacco Use Types [...] Hospital Encounter [facility] Perioperative Surgical Services [address] [place] [phone] Tip Campos MD [address] [place] [phone] 02/05/2025 8:15 AM EDT - 02/05/2025 12:30 PM EDT Surgery [facility] Perioperative Surgical Services 80 [place] [phone] Tip Campos MD [address] [place] [phone] ACDF 4-6 02/19/2025 10:00 AM EDT Office Visit [facility] Neurosurgery [place] [address] [phone] Leatha Mc PA [address] [phone] 03/25/2025 9:00 AM EST Office Visit [facility] Plastic & Reconstructive Surgery [place] [address] [facility] [address] [place] [address] Michael Long MD 399 [facility] 210 [place] [address] Scheduled Procedures Name Priority Associated Diagnoses Date/Ti me FUSION ANTERIOR CERVICAL DISC Cervical disc prolapse with radiculopathy 02/05/2025 8:15 AM EDT Scheduled Referrals Name Type Priority Associated Diagnoses Orde r Schedule Amb Referral to ENT Outpatient Referral Routine Dysphonia Ordered: 02/01/2025 documented as of this encounter Goals Goal Patient Goal Type Associated Problems Recent Progress Patient-Stated? Author Autogenerat ed Goal Care Plan Autogenerated Problem Chaparro Dent MA documented as of this encounter Visit Diagnoses Diagnosis Dysphonia- Primary Cervical disc prolapse with radiculopathy documented in this encounter Additional Health Concerns Active Problems Noted Date Diagnosed Date Autogenerated Problem 01/28/2025 documented as of this encounter Care Teams Black Top Roller Relationship Specialty Start Date End Date Brett Sharma MD [address] [place] [address] PCP - General Family Medicine 03/03/24 Isis Young RN 80 [place] [address] Nurse Navigator Surgery, Neurosurgery 01/25/25 documented as of this encounter
--- OUTSIDE RECORDS SUMMARY | 2025-02-01 09:33 | XMS_ITS | Encounter Summary ---
Author Organization [facility] Address [address] [facility] [address] [place] [address] Phone Care Team Providers Care Potato Inspector Name Role Phone Pcp, Not Required Primary Care Provider Arturo Castillo MD, PhD Unavailable [phone] Rylee Zendejas TIN TIE MACHINE OPERATOR AUTOMATIC Primary Care Provider Unknown, Unknown Primary Care Provider Rylee Sanchez TIN TIE MACHINE OPERATOR AUTOMATIC Primary Care Provider Brett Sharma TIN TIE MACHINE OPERATOR AUTOMATIC Primary Care Provider + Encounter Details Date Type Department Care Team (Late st Contact Info) Description 02/03/[address] [facility] Imaging 55 [place] [address] Social History Tobacco Use Types Packs/Day Years [...] 03/23/2025 3:20 PM EST Office Visit [facility] 15 [facility], [address] [place] [address] Miki Blackwood MD [address] [place] [address] [address] [place] [address] [email or web address] 04/29/2025 10:30 AM EST Office Visit [facility] 55 [facility], 5th [place] [address] Ranjit [place] MD 15 [facility] 535 [place] [address] [email or web address] 05/18/2025 8:45 AM EST Evaluation [facility] [address] [address] Charissa Lew AuD [address] [place] [address] [email or web address] 05/18/2025 9:30 AM EST Office Visit [facility] [address] [address] Arturo Bunn MD, PhD [address] [place] [phone] [email or web address] 08/27/2025 9:10 AM EDT Office Visit [facility] Cardiovascular Clinic 70 [place] [address] Pooja Jacob MD [address] [address] [email or web address] 09/24/2025 10:30 AM EDT Office Visit [facility] [address] [facility], [address] [place] [address] Magnus Perez MD 55 [facility] Y[address] [place] [address] [email or web address] documented as of this encounter Visit Diagnoses Not on filedocumented in this encounter Care Teams Potato Inspector Relationship Specialty Start Date End Date Pcp, Not Required [address] [place] [address] PCP - General 08/24/16 04/26/19 Rylee Zendejas, SELWYN [address] [place] [address] [email or web address] PCP - General Family Medicine 04/27/19 06/15/19 Unknown, Cesario, [address] [place] [address] PCP - General 06/16/19 06/22/19 Rylee Zendejas, SELYWN [address] [place] [address] [place] [address] [email or web address] PCP - General Family Medicine 06/23/19 08/15/21 Brett Sharma, SELWYN [address] [place] [address] [place] [address] PCP - General Family Medicine 08/16/21 Arturo Lawrence MD, PhD [address] [place] [address] [facility] [address] [place] [address] [email or web address] Hematology and Oncology 07/06/17 documented as of this encounter Additional Source Comments The information contained in this document represents components of the legal health record. It is not the complete legal health record.[facility]
--- OUTSIDE RECORDS SUMMARY | 2025-02-01 09:33 | XMS_ITS | Encounter Summary ---
Author Organization [facility] Address [address] [address] Phone Care Team Providers Care Case Management Social Worker Name Role Phone Pcp, Not Required Primary Care Provider Unavaila Arturo Tong MD, PhD Unavailable [phone] Rylee Zendejas EXTERNAL RELATIONS DIRECTOR Primary Care Provider Unknown, Unknown Primary Care Provider Rylee Sanchez EXTERNAL RELATIONS DIRECTOR Primary Care Provider Brett Sharma EXTERNAL RELATIONS DIRECTOR Primary Care Provider + Encounter Details Date Type Department Care Team (Late st Contact Info) Description 04/07/2019 Transcribe Orders [facility] Laboratory 30 [place] [address] Arturo Lawrence MD, PhD [address] [place] [address] [address] [email or web address] Pigment cirrhosis (Primary Dx) Social History Tobacco [...] Description 03/23/2025 3:20 PM EST Office Visit [facility] 15 [facility], [address] [place] [address] Miki Blackwood MD 55 [facility] [address] [place] [address] [email or web address] 04/29/2025 10:30 AM EST Office Visit [facility] 55 [facility], 5th [place] [address] Ranjit [place] MD [address] [address] [email or web address] 05/18/2025 8:45 AM EST Evaluation [facility] Audiology [address] [address] Charissa Lew AuD [address] [place] [address] [email or web address] 05/18/2025 9:30 AM EST Office Visit [facility] Otology [address] [address] Arturo Bunn MD, PhD [address] [place] [address] [email or web address] 08/27/2025 9:10 AM EDT Office Visit [facility] Cardiovascular Clinic 70 [place] [address] Pooja Jacob MD [address] [address] [email or web address] 09/24/2025 10:30 AM EDT Office Visit [facility] [address] [facility], [address] [place] [address] Magnus Perez MD [address] [facility] [address] [place] [address] [email or web address] documented as of this encounter Results * Ferritin (04/07/2019 9:28 AM EST) FERRITIN 22 13 - 150 ug/L [facility] Blood 04/07/2019 9:28 AM EST 04/07/2019 9:30 AM EST us Arturo Lawrence MD, PhD LAB BLOOD ORDERABLES F inal Result Performing Organization Address City/[facility]/ZIP Co de Phone Number [address] [address] * Iron and iron binding capacity (04/07/2019 9:28 AM EST) IRON 67 30 - 160 ug/dL [facility] IRON BINDING CAPACITY 230 228 - 428 ug/dL [facility] TRANSFERRIN SATURAT. 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 PCP - General Family Medicine 04/27/19 06/15/19 Unknown, Cesario, [address] [place] [address] PCP - General 06/16/19 06/22/19 Rylee Zendejas, SELWYN [address] [place] [address] [place] [address] [email or web address] PCP - General Family Medicine 06/23/19 08/15/21 Brett Sharma, SELWYN [address] [place] [address] [place] [address] PCP - General Family Medicine 08/16/21 Arturo Lawrence MD, PhD [address] [place] [place] [address] [facility] 7B [place] [address] [email or web address] [email or web address] Hematology and Oncology 07/06/17 documented as of this encounter Additional Source Comments The information contained in this document represents components of the legal health record. It is not the complete legal health record.[facility]
--- OUTSIDE RECORDS SUMMARY | 2025-02-01 09:33 | XMS_ITS | Encounter Summary ---
Author Organization [facility] Address [address] [place] [address] Care Team Providers Care Printer Technician Name Role Phone Brett Sharma MD Primary Care Provider + [phone] Isis Young RN Unavailable [phone] Encounter Details Date Type Department Care Team (Latest Contact Info) Description 01/29/2025 Travel Social History Tobacco Use Types Packs/Day [...] 2-4 times a month 01/29/2025 11:53 AM EDT Rogelio Emanuel RN Q2: How many drinks containing alcohol do you have on a typical day when you are drinking? 1 or 2 01/29/2025 11:53 AM EDT Rogelio Emanuel RN Q3: How often do you have six or more drinks on one occasion? Never 01/29/2025 11:53 AM EDT Rogelio Emanuel RN documented as of this encounter Plan of Treatment Upcoming Encounters Date Type Department Care Team (Late st Contact Info) Description 02/05/2025 8:15 AM EDT Hospital Encounter [facility] Perioperative Surgical Services [address] [place] [phone] Tip Campos MD [address] [place] [phone] 02/05/2025 8:15 AM EDT - 02/05/2025 12:30 PM EDT Surgery [facility] Perioperative Surgical Services [address] [place] [phone] Tip Campos MD [address] [place] [phone] [id number] [id number] 02/19/2025 10:00 AM EDT Office Visit [facility] [place] [address] [phone] Leatha Mc PA [address] [address] 03/25/2025 9:00 AM EST Office Visit [facility] Plastic & Reconstructive Surgery [place] [address] [phone] Michael Long MD [address] [place] [phone] Scheduled Procedures Name Priority Associated Diagnoses Date/Ti [...] documented as of this encounter Care Teams Printer Technician Relationship Specialty Start Date End Date Brett Sharma MD [address] [place] [address] PCP - General Family Medicine 03/03/24 Isis Young RN [address] [place] [address] Nurse Navigator Surgery, Neurosurgery 01/25/25 documented as of this encounter
--- OUTSIDE RECORDS SUMMARY | 2025-02-01 09:33 | XMS_ITS | Encounter Summary ---
Author Organization [facility] Address [address] [address] Phone Care Team Providers Care Tangled Yarn Spool Straightener Name Role Phone Pcp, Not Required Primary Care Provider Arturo Castillo MD, PhD Unavailable [phone] Rylee Zendejas POULTRY BONER Primary Care Provider Unknown, Unknown Primary Care Provider Rylee Sanchez POULTRY BONER Primary Care Provider Brett Sharma POULTRY BONER Primary Care Provider + Reason for Referral * Consultation (Elective) - Closed Specialty Diagnoses / Procedures Referred By Contact Referred To Contact Pediatric Gastroenterology Diagnoses Non-celiac gluten sensitivity System, Provider Not In, PhD [address] [address] Referral ID Status Reason Start Date Expiration Date Visits Re quested Visits Authorized [id number] Closed 08/24/2016 08/24/2017 1 1 Encounter Details Date Type Department Care Team (Latest Contact Info) Description 08/24/2016 Transcribe Orders [facility] [address] [place] [phone] Pcp, Not Required [address] [place] [phone] Non-celiac gluten sensitivity (Primary Dx); Intestinal malabsorption, [...] Description 03/23/2025 3:20 PM EST Office Visit [facility] [address], [address] [place] [address] Miki Blackwood MD [address] [facility] [address] [place] [address] [email or web address] 04/29/2025 10:30 AM EST Office Visit [facility] [address] [facility], [address] [place] [address] Ranjit Morley MD [address] [address] [email or web address] 05/18/2025 8:45 AM EST Evaluation [facility] [address] [address] Charissa Lew AuD [address] [place] [address] [email or web address] 05/18/2025 9:30 AM EST Office Visit [facility] Otology [address] [address] Arturo Bunn MD, PhD [address] [place] [phone] [email or web address] 08/27/2025 9:10 AM EDT Office [facility] [address] [place] [address] Pooja Jacob MD [address] [place], [place] [address] [place] [address] [email or web address] 09/24/2025 10:30 AM EDT Office Visit [facility] [address] [facility], [address] [place] [address] Magnus Perez MD [address] [address] [email or web address] Scheduled Referrals Name Type Priority Associated Diagnoses Orde r Schedule Ambulatory referral to [facility] Pediatric GI/Nutrition Outpatient Referral Routine Non-celiac gluten sensitivity Ordered: 08/24/2016 documented as of this encounter Visit Diagnoses Diagnosis Non-celiac gluten sensitivity- Primary Intestinal malabsorption, unspecified type documented in this encounter Care Teams Tangled Yarn Spool Straightener Relationship Specialty Start Date End Date Pcp, Not Required [address] [place] [address] PCP - General 08/24/16 04/26/19 Rylee Zendejas NP [address] [place] [address] [email or web address] PCP - General Family Medicine 04/27/19 06/15/19 Unknown, MD Cesario [address] [place] [address] PCP - General 06/16/19 06/22/19 Rylee Zendejas NP [address] [place] [address] [place] [address] [email or web address] PCP - General Family Medicine 06/23/19 08/15/21 Brett Sharma NP [address] [place] [address] [place] [address] PCP - General Family Medicine 08/16/21 Arturo Lawrence MD, PhD [address] [place] [address] [facility] [address] [place] [address] [email or web address] Hematology and Oncology 07/06/17 documented as of this encounter Additional Source Comments The information contained in this document represents components of the legal health record. It is not the complete legal health record.[facility]
--- OUTSIDE RECORDS SUMMARY | 2025-02-01 09:33 | XMS_ITS | Clinical Summary ---
Author Organization [facility] Address [address] [address] Phone Care Team Providers Care Samples And Repairs Preparer Name Role Phone Arturo Lawrence MD, PhD Unavailable [phone] Brett Sharma NP Primary Care Provider + Allergies Active Allergy Reactions Criticality Noted Date Comments [place] Oil Rash Low 04/04/2017 Amoxicillin-Pot Clavulanate Anaphylaxis High 10/19/2013 Flavoring Agent (Bulk) Rash Low 04/04/2017 Meperidine Swelling 05/03/2017 Doxycycline Hyclate Anaphylaxis High 05/03/2017 Ibuprofen 05/23/2022 Throat tightness feels like asthma attack Latex, Natural Rubber Rash Low 05/21/2019 Morphine Itching,Swelling 10/19/2013 Other 08/28/2022 turnip Oxycodone-Acetaminophen Swelling 05/03/2017 Ok with tylenol Prednisone Neuropathy Medium 08/28/2022 [place] Hives Medium 04/04/2017 Tramadol Itching Low 09/12/2023 [...] mg See Adm Inst Once 10/28/2024 01/26/2025 Ended Active Problems Problem Noted Date Diagnosed Date Bilateral hearing loss 01/01/2025 H/O total thyroidectomy 02/12/2023 GERD (gastroesophageal reflux disease) 3 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 A prior echocardiogram reports mild posterior mitral [...] the study from July 2017 done in [facility]. She will try to send me [...] repeat echocardiogram in July 2018 at the [facility] facility and then one week later an office visit with me to review the findings. Follow up in July 2018, one week after the repeat echocardiogram. 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 Lawrence for hemochromatosis and receives therapeutic phlebotomy. There is a plan from her bead flipper, Dr. Castle at [place] to perform a cardiac MRI to assess [...] Encounters Date Type Department Care Team Description 01/25/2025 Telephone [facility] [place] [facility] [address] [facility], [address] [place] [address] Magnus Perez MD 01/20/2025 Ancillary Orders [facility] [address] [place] [address] UnknownCesario MD 01/19/2025 4:26 PM EDT - 01/19/2025 11:59 PM EDT Hospital Encounter [facility] Laboratory [address] [place] [address] Jorge Moreno, Discharge Disposition: Home or Self Care 01/19/2025 Transcribe Orders [facility] Laboratory [address] [place] [address] Jorge Moreno DO Adverse food reaction, subsequent encounter (Primary Dx); Allergy to other foods 01/18/2025 Orders Only [facility] [address] [facility], 7th Floor, [address] [place] [address] Arturo Lawrence MD, PhD 01/17/2025 - 01/17/2025 11:59 PM EDT Hospital Encounter [facility] [address] [place] [address] Unknown, Unknown, MD Discharge Disposition: Home or Self Care 01/15/2025 11:30 AM EDT Evaluation [facility] [place] [address] [address] Arturo Bunn MD, PhD skyler Alecia Yangwell Sensorineural hearing loss (SNHL) of both ears (Primary Dx) 01/15/2025 11:00 AM EDT Evaluation [facility] [place] [address] [address] Arturo Bunn MD, PhD Sharon Borrego, AuD Sensorineural hearing loss, bilateral 01/15/2025 9:30 AM EDT Office Visit [facility] [place] [address] [address] Arturo Bunn MD, PhD Sudden left hearing loss (Primary Dx); Sensorineural hearing loss (SNHL), bilateral 01/15/2025 Transcribe Orders [facility] [place] [address] [address] Arturo Bunn MD, PhD Hearing disorder, unspecified laterality (Primary Dx) 01/06/2025 1:10 PM EDT - 01/06/2025 11:59 PM EDT Hospital Encounter [facility] [address] [place] [address] Jorge Moreno, Discharge Disposition: Home or Self Care 01/06/2025 Transcribe Orders [facility] [address] [place] [address] Jorge Moreno DO Anaphylaxis, subsequent encounter (Primary Dx) 01/04/2025 12:08 AM EDT - 01/04/2025 2:28 AM EDT Emergency [facility] Emergency [address] [place] [address] Discharge Disposition: Home or Self Care 12/31/2024 4:40 PM EDT Office Visit [facility] [address] [place] [address], 7th Floor, [address] [place] [address] Arturo Lawrence MD, PhD Hereditary hemochromatosis (Primary Dx); Bilateral hearing loss, unspecified hearing loss type; Fibroids 12/28/2024 2:45 AM EDT - 12/28/2024 6:20 AM EDT Emergency [facility] Emergency [address] [place] [address] Jairo Young, Discharge Disposition: Home or Self Care 12/24/2024 3:39 PM EDT - 12/24/2024 11:59 PM EDT Hospital Encounter [facility] Laboratory [address] [place] [address] Miki Blackwood MD Discharge Disposition: Home or Self Care 12/24/2024 Orders Only [facility] [address] [facility], [address] [place] [address] Miki Blackwood MD Hypocalcemia (Primary Dx) 12/24/2024 Transcribe Orders [facility] Laboratory [address] [place] [address] Miki Blackwood MD Hypothyroidism, postop (Primary Dx); Thyroid cancer 12/24/2024 Transcribe Orders [facility] Laboratory [address] [place] [address] Miki Blackwood MD Hypothyroidism, postop (Primary Dx); Thyroid cancer 12/07/2024 Orders Only [facility] [address] [facility], [address] [place] [address] Miki Blackwood MD Hypothyroidism, postop (Primary Dx); Thyroid cancer 11/11/2024 8:45 AM EDT Office Visit [facility] Otology Main [address] [address] Arturo Bunn MD, PhD Sudden left hearing loss (Primary Dx) 11/06/2024 3:30 PM EDT Office Visit [facility] [place] [address] [address] Roscoe Jett MD Sudden left hearing loss (Primary Dx) 11/02/2024 10:03 AM EDT - 11/02/2024 11:59 PM EDT Hospital Encounter [facility]OLOGY ACC[address] WACC-[address] [place] [address] Discharge Disposition: Home or Self Care 11/02/2024 7:15 AM EDT Procedure visit [facility] [place] [facility] [address] 2nd Floor [place], [place] [address] Jovany Kaur MD Sudden left hearing loss (Primary Dx) from Last 3 Months Immunizations Immunization Administration [...] on file 08/28/2022 No 08/28/2022 No 08/28/2022 Food Answer Date Recorded Within the past 6 months we worried whether our food would run out before we got money to buy more. Unable to assess 025 Within the past 6 months the food we bought just didn't last and we didn't have enough money to get more. Unable to assess 01/04/2025 Residential Stability Answer Date Recor ded What is your housing situation today? Unable to assess 01/04/2025 How many times have you moved in the past 12 mon ths? Unable to assess 01/04/2025 Paying for Meds Answer Date Recorded Do you have trouble paying for medicines? Unable to assess 01/04/2025 Paying Utility Bills Answer Date Record ed Do you have trouble paying y our heating or electricity bill? Unable to assess 01/04/2025 Transportation Answer Date Recorded Has the lack of transportati on kept you from medical appointments or from getting medications? Unable to assess 01/04/2025 Digital Access Answer Date Recorded No 01/04/2025 No 01/04/2025 Do you have reliable internet access at home? Un able to assess 01/04/2025 Do you have a device (e.g., phone, tablet, computer) with a working camera? Unable to assess 01/04/2025 Intimate Partner Violence Answer Date R ecorded Are you denied basic needs s uch as food, clothing, or medical care? No 01/03/2025 In the past 12 months have y ou been in a relationship with a person who hurts, threatens, or tries to control you? No 01/03/2025 Are you denied basic needs s uch as food, clothing, or medical care? No 01/03/2025 In the past 12 months have y ou been in a relationship with a person who hurts, threatens, or tries to control you? No 01/03/2025 Comments No Sex and Gender Information Value Date Recorded Sex Assigned at Female 06/23/2019 12:35 PM EST Legal Sex Female 5:25 PM EST Gender Identity Female 06/23/2019 12:35 PM EST Sexual Orientation Straight 06/23/2019 12 :35 PM EST Last Filed Vital Signs Vital Sign Reading Time Taken Comments Blood Pressure 110/67 01/04/2025 2:17 AM EDT Pulse 83 01/04/2025 2:17 AM EDT Temperature 36.9 C (98.4 F) 01/04/2025 2:17 AM EDT Respiratory Rate 18 01/04/2025 2:17 AM EDT Oxygen Saturation 98% 01/04/2025 2:17 AM EDT Inhaled Oxygen Concentration - - Weight 65.8 kg (145 lb) 01/03/2025 11:36 PM EDT Height 162.6 cm (5' 4 ) 12/28/2024 12:16 AM EDT Body Mass Index 24.89 12/28/2024 12:16 AM EDT Plan of Treatment Upcoming Encounters Date Type Department Care Team (Late st Contact Info) Description 03/23/2025 3:20 PM EST Office Visit [facility] [address] [facility], [address] [place] [address] Miki Blackwood MD [address] [place] [address] [address] [place] [address] [email or web address] 04/29/2025 10:30 AM EST Office Visit [facility] [address] [facility], 5th [place] [address] Ranjit Morley MD [address] [address] [email or web address] 05/18/2025 8:45 AM EST Evaluation [facility] [place] [address] [address] Charissa Lew AuD [address] [place] [address] [email or web address] 05/18/2025 9:30 AM EST Office Visit [facility] [place] [facility] [address] [address] Arturo Bunn MD, PhD [address] [place] [email or web address] 08/27/2025 9:10 AM EDT Office Visit [facility] [address] [place] [address] Pooja Jacob MD [address] [place] [email or web address] 09/24/2025 10:30 AM EDT Office Visit [facility] [place] [facility] [address] [facility], [address] [place] [address] Magnus Perez MD 55 [facility] [address] [place] [address] [email or web address] Health Maintenance Due Date Last Done Comments DEPRESSION SCREENING 1988 HIV ONE-TIME SCREENING (18-65 YEARS) 1994 PNEUMOCOCCAL VACCINES (0-49 years) (1 of 2 - PCV) 09/14/1995 MAMMOGRAM 2016 COLOGUARD 2021 COLONOSCOPY 2021 COLORECTAL CANCER SCREENING 2021 FIT TEST 2021 FOBT 2021 SIGMOIDOSCOPY 2021 VIRTUAL COLONOSCOPY 2021 Adult Td,Tdap Booster 09/20/2021 09/21/2011 COVID-19 VACCINE ( season) 2024 03/24/2021, 05/27/2020, 04/29/2020 LIPID PANEL 03/10/2025 03/10/2020 TSH LEVEL 12/24/2025 12/24/2024, 05/23, 12/30/2023, Additional history exists PAP SMEAR 12/30/2026 12/31/2023 HEPATITIS C SCREENING Completed 10/17/2022 SMOKING STATUS SCREENING (Once After 26 Yrs) Completed 12/28/2024 INFLUENZA VACCINE Completed 01/22/2025, , 12/29/2019, Additional history exists HEPATITIS A VACCINES Aged Out No long [...] this topic Medical Devices Implanted Type Area Cnc Mill And Lathe Operator Device Identifier Shelf Expiration Date Model / Serial / Lot Dental-Left Upper Procedures Procedure Name Priority Date/Time Associated Diagnosis Comments CINNAMON, IGE Routine 01/19/2025 4:41 PM EDT Adverse food reaction, subsequent encounter Allergy to other foods IMMUNOGLOBULIN E, TOTAL Routine 01/19/2025 4:41 PM EDT Anaphylaxis, subsequent encounter MRI SPINE MUSCULOSKELETAL FOCUS OUTSIDE (NO INTERPRETATION) Routine 01/17/2025 12:00 AM EDT AUDIOLOGY ORDERS 01/15/2025 11:1 3 AM EDT FERRITIN Routine 12/31/2024 2:58 PM EDT Hereditary hemochromatosis CBC AND DIFFERENTIAL Routine 12/31/2024 2:58 PM EDT Hereditary hemochromatosis ALBUMIN Routine 12/24/2024 4:54 PM EDT Hypocalcemia [...] Routine 11/02/2024 10:27 AM EDT Hereditary hemochromatosis from Last 3 Months Results * Katerin IgE (01/19/2025 4:41 PM EDT) Pathologist Marcela LEMUS IGE <0.10 <0.70 kU/L [place] [facility] MED/PATH [address] BOSCH Comment: (NOTE) Class 0 (Negative <0.10) ADDITIONAL INFORMATION This test was developed and its performance characteristics determined by [facility] in a manner consistent with CLIA requirements. This test has not been cleared or approved by the U.S. Food and Drug Administration. Blood 01/19/2025 4:41 PM EDT 01/19/2025 4:47 PM EDT Jorge Bhavani Notch DO LAB BLOOD ORDERABLES Final R esult Performing Organization Address [facility] Co de Phone Number [facility] LAB MED/PATH [address] [place] [address] * Immunoglobulin E, total (01/19/2025 4:41 PM EDT) IGE 27.8 <=214 kU/L [facility] LAB MED/PATH [address] Blood 01/19/2025 4:41 PM EDT 01/19/2025 4:47 PM EDT Jorge Bhavani [employer] LAB BLOOD ORDERABLES Final R esult Performing Organization Address [facility] de Phone Number [facility] LAB MED/PATH [address] [place] [address] * MRI Spine (Bone) Outside (No Interpretation) (01/17/2025 12:00 AM EDT) Narrative [facility] IMG INTERFACES - 01/20/2025 1:35 PM EDT This study is for PACS storage only and not for interpretation. us Unknown Unknown MD IMG OUTSIDE IMAGING W/OUT INT ERPRETATION Final Result Performing Organization Address [facility] Co de Phone Number [facility] IMG INTERFACES * Audiology Orders (01/15/2025 11:13 AM EDT) 01/15/2025 11:1 3 AM EDT us Provider Not In System PhD AUDIOLOGY SERVICES OR DERABLES Final Result Performing Organization Address [facility] Co de Phone Number DR BERNAL AUD * CBC and differential (12/31/2024 2:58 PM EDT) Only the most recent of2 resultswithin the time period is included. WBC 7.78 4.00 - 11.00 K/uL [facility] RBC 4.71 4.00 - 5.20 M/uL [facility] HGB 14.4 12.0 - 16.0 g/dL [facility] HCT 41.8 36.0 - 46.0 % [facility] PLT 326 150 - 450 K/uL [facility] MCV 88.7 80.0 - 100.0 fL [facility] MCH 30.6 27.0 - 31.0 pg [facility] MCHC 34.4 32.0 - 36.0 g/dL [facility] RDW 13.6 11.5 - 14.5 % [facility] MPV 10.1 8.4 - 12.0 fL [facility] NRBC 0.00 0.00 /100 WBCs [facility] ABSOLUTE NRBC 0.00 0.00 K/uL [facility] DIFF METHOD Auto [facility] NEUTS 60.9 48.0 - 76.0 % [facility] LYMPHS 29.6 18.0 - 41.0 % [facility] MONOS 7.5 4.0 - 11.0 % [facility] EOS 0.8 0.0 - 5.0 % [facility] BASOS 0.8 0.0 - 1.5 % [facility] % IMMATURE GRANS 0.4 0.0 - 0.9 % [facility] ABSOLUTE NEUTS 4.75 1.92 - 7.60 K/uL [facility] ABSOLUTE LYMPHS 2.30 0.72 - 4.10 K/uL [facility] ABSOLUTE MONOS 0.58 0.16 - 1.10 K/uL [facility] ABSOLUTE EOS 0.06 0.00 - 0.50 K/uL [facility] ABSOLUTE BASOS 0.06 0.00 - 0.15 K/uL [facility] ABS IMMATURE GRANS 0.03 0.00 - 0.09 K/uL [facility] Blood 12/31/2024 2:58 PM EDT 12/31/2024 3:09 PM EDT Arturo Lawrence MD, PhD LAB BLOOD ORDERABLES F inal Result [facility] [address] [place] [address] * Ferritin (12/31/2024 2:58 PM EDT) Only the most recent of2 resultswithin the time period is included. FERRITIN 24 10 - 200 ug/L [facility] 12/31/2024 2:58 PM EDT 12/31/2024 3:09 PM EDT Arturo Lawrence MD, PhD LAB BLOOD ORDERABLES F inal Result [facility] [address] [place] [address] * Thyroglobulin, Tumor Marker (12/24/2024 4:54 PM [...] testing methods are immunoenzymatic assays manufactured by [employer] and performed on the [employer] DXI 800. Values obtained from different assay methods or kits may be different and cannot be used interchangeably. The results cannot be interpreted as absolute evidence for the presence or absence of malignant disease. Blood 12/24/2024 4:54 PM EDT 12/24/2024 5:01 PM EDT Miki Blackwood MD LAB BLOOD ORDERABLES Final Result [facility] LAB MED/PATH [address] [place] [address] * Free T3 (12/24/2024 4:54 PM EDT) FREE T3 2.9 2.0 - 4.4 pg/mL [facility] Blood 12/24/2024 4:54 PM EDT 12/24/2024 5:01 PM EDT Miki Blackwood MD LAB BLOOD ORDERABLES Final Result Performing Organization Address [facility] Co de Phone Number [address] [address] * TSH (12/24/2024 4:54 PM EDT) TSH 0.47 0.27 - 4.20 uIU/mL [facility] Blood 12/24/2024 4:54 PM EDT 12/24/2024 5:01 PM EDT Miki Blackwood MD LAB BLOOD ORDERABLES Final Result Performing Organization Address City/[facility]/ZIP Co de Phone Number [address] [address] * Free T4 (12/24/2024 4:54 PM EDT) FREE T4 1.6 0.9 - 1.7 ng/dL [facility] Blood 12/24/2024 4:54 PM EDT 12/24/2024 5:01 PM EDT us Miki Blackwood MD LAB BLOOD ORDERABLES Final Result [address] [address] * Phosphorus (12/24/2024 4:54 PM EDT) PHOSPHORUS 3.0 2.7 - 4.5 mg/dL [facility] Blood 12/24/2024 4:54 PM EDT 12/24/2024 5:01 PM EDT us Miki Blackwood MD LAB BLOOD ORDERABLES Final Result Performing Organization Address [facility]/ZIP Co de Phone Number [address] [address] * Parathyroid hormone (PTH) (12/24/2024 4:54 PM EDT) PARATHYROID HORMONE 39 15 - 65 pg/mL [facility] Blood 12/24/2024 4:54 PM EDT 12/24/2024 5:01 PM EDT us Miki Blackwood MD LAB BLOOD ORDERABLES Final Result Performing Organization Address City/[facility]/ZIP Co de Phone Number [address] [address] * Calcium (12/24/2024 4:54 PM EDT) CALCIUM 8.9 8.4 - 10.3 mg/dL [facility] Blood 12/24/2024 4:54 PM EDT 12/24/2024 5:01 PM EDT us Miki Blackwood MD LAB BLOOD ORDERABLES Final Result Performing Organization Address City/[facility]/ZIP Co de Phone Number [address] [address] * Albumin (12/24/2024 4:54 PM EDT) ALBUMIN 4.6 3.9 - 4.8 g/dL [facility] Blood 12/24/2024 4:54 PM EDT 12/24/2024 5:01 PM EDT us Miki Blackwood MD LAB BLOOD ORDERABLES Final Result [facility] [address] [place] [address] from Last 3 Months Insurance AET PPO AETNA PPO AETNA PPO AETNA PPO AETNA PPO AETNA PPO AETNA PPO AETNA PPO AETNA PPO AETNA PPO Care Teams Samples And Repairs Preparer Relationship Specialty Start Date End Date Brett Sharma NP 1960 [facility] [place] [address] PCP - General Family Medicine 08/16/21 Arturo Lawrence MD, PhD [address] [place] [address] [facility] [address] [place] [address] [email or web address] Hematology and Oncology 07/06/17 Additional Source Comments The information contained in this document represents components of the legal health record. It is not the complete legal health record.[facility]
--- OUTSIDE RECORDS SUMMARY | 2025-02-01 09:33 | XMS_ITS | Encounter Summary ---
Author Organization [facility] Address [address] [address] Phone Care Team Providers Care Restrictive Preparation Operator Name Role Phone Pcp, Not Required Primary Care Provider Unavaila Arturo Tong MD, PhD Unavailable [phone] Rylee Zendejas WATCH CRYSTAL MOLDER Primary Care Provider Unknown, Unknown Primary Care Provider Rylee Sanchez WATCH CRYSTAL MOLDER Primary Care Provider Brett Sharma WATCH CRYSTAL MOLDER Primary Care Provider + Encounter Details Date Type Department Care Team (Late st Contact Info) Description 08/14/2018 Transcribe Orders [facility] Laboratory [address] [place] [address] Arturo Lawrence MD, PhD [address] [place] [address] [address] [email or web address] Social History Tobacco Use Types Packs/Day [...] Description 03/23/2025 3:20 PM EST Office Visit [facility] [address] [facility], [address] [place] [address] Miki Blackwood MD 55 [facility] [address] [place] [address] [email or web address] 04/29/2025 10:30 AM EST Office Visit [facility] [address] [facility], 5th [place] [address] Ranjit Morley MD [address] [address] [email or web address] 05/18/2025 8:45 AM EST Evaluation [facility] [address] [address] Charissa Lew AuD [address] [place] [address] [email or web address] 05/18/2025 9:30 AM EST Office Visit [facility] Otology [address] [address] Arturo Bunn MD, PhD [address] [place] [email or web address] 08/27/2025 9:10 AM EDT Office Visit [facility] [address] [place] [address] Pooja Jacob MD [address] [address] [email or web address] 09/24/2025 10:30 AM EDT Office Visit [facility] Cardiology [place] [facility] [address] [facility] [address] [place] [address] Magnus Perez MD 55 [facility] [address] [place] [address] [email or web address] documented as of this encounter Visit Diagnoses Not on filedocumented in this encounter Care Teams Restrictive Preparation Operator Relationship Specialty Start Date End Date Pcp, Not Required [address] [place] [address] PCP - General 08/24/16 04/26/19 Rylee Zendejas, SELWYN [address] [place] [address] [email or web address] PCP - General Family Medicine 04/27/19 06/15/19 Unknown, Cesario, [address] [place] [address] PCP - General 06/16/19 06/22/19 Rylee Zendejas, SELWYN [address] [place] [address] [place] [address] [email or web address] PCP - General Family Medicine 06/23/19 08/15/21 Brett Sharma NP [address] [place] [address] [place] [address] PCP - General Family Medicine 08/16/21 Arturo Lawrence MD, PhD [address] [place] [address] Outpatient [facility] [address] [place] [address] [email or web address] Hematology and Oncology 07/06/17 documented as of this encounter Additional Source Comments The information contained in this document represents components of the legal health record. It is not the complete legal health record.[facility]
--- OUTSIDE RECORDS SUMMARY | 2025-02-01 09:33 | XMS_ITS | Encounter Summary ---
Author Organization [facility] Address [address] [place] [address] Care Team Providers Care Kindergarten Instructional Assistant Name Role Phone Brett Sharma MD Primary Care Provider + [phone] Isis Young RN Unavailable [phone] Reason for Visit * Reason Onset Date Comments surgery 01/27/2025 Encounter Details Date Type Department Care Team (Late st Contact Info) Description 01/27/2025 Telephone [facility] Neurosurgery [address] [phone] Tip Campos MD [address] [place] [address] surgery Social History Tobacco Use Types Packs/Day Years [...] AM EST documented as of this encounter Miscellaneous Notes * Telephone Encounter - Mary Aldricharria - 01/27/2025 2:00 PM EDT Left message for patient 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 Advised to return my call toschedule. documented in this encounter Plan of Treatment Upcoming Encounters Date Type Department Care Team (Late st Contact Info) Description 02/05/2025 8:15 AM EDT Hospital Encounter [facility] Perioperative Surgical Services [address] [place] [address] Tip Campos MD [address] [address] 02/05/2025 8:15 AM EDT - 02/05/2025 12:30 PM EDT Surgery [facility] Perioperative Surgical Services [address] [place] [phone] Tip Campos MD [address] [address] ACDF 4-6 02/19/2025 10:00 AM EDT Office Visit [facility] Neurosurgery [place] [address] [phone] Leatha Mc PA [address] [address] 03/25/2025 9:00 AM EST Office Visit [facility] Plastic & Reconstructive Surgery [place] [address] [phone] Michael Long MD [address] [place] [address] Scheduled Procedures Name Priority Associated Diagnoses Date/Ti me FUSION ANTERIOR CERVICAL DISC Cervical disc prolapse with radiculopathy 02/05/2025 8:15 AM EDT documented as of this encounter Visit Diagnoses Not on filedocumented in this encounter Care Teams Kindergarten Instructional Assistant Relationship Specialty Start Date End Date Brett Sharma MD [address] [place] [address] PCP - General Family Medicine 03/03/24 Isis Young RN [address] [place] [phone] Nurse Navigator Surgery, Neurosurgery 01/25/25 documented as of this encounter
--- OUTSIDE RECORDS SUMMARY | 2025-02-01 09:33 | XMS_ITS | Encounter Summary ---
Author Organization [facility] Address [address] [facility] [address] [place] [address] Phone Care Team Providers Care Social Media Marketing Manager Name Role Phone Arturo Lawrence MD, PhD Unavailable [phone] Brett Sharma NP Primary Care Provider + Reason for Visit * Reason Onset Date Comments s/p procedure question 10/08/2023 Shannen Hernandez Encounter Details Date Type Department Care Team (Late st Contact Info) Description 10/08/2023 Telephone [facility] Gynecology [address] [facility], 4th Floor, [address] [place] [address] Shannen Hayward MD [address] [place] [place] [address] [email or web address] s/p procedure question (Shannen Hayward) Social [...] PM EST Office Visit [facility] [address] [facility], [address] [place] [address] Miki Blackwood MD [address] [place] [address] [address] [place] [address] [email or web address] 04/29/2025 10:30 AM EST Office Visit [facility] [address] [place] [address], 5th [place] [address] Ranjit Morley MD [address] [address] [email or web address] 05/18/2025 8:45 AM EST Evaluation [facility] [address] [address] Charissa Lew AuD [address] [place] [address] [email or web address] 05/18/2025 9:30 AM EST Office Visit [facility] Otology [address] [address] Arturo Bunn MD, PhD [address] [place] [address] [email or web address] 08/27/2025 9:10 AM EDT Office Visit [facility] Cardiovascular Clinic [address] [place] [address] Pooja Jacob MD 75 [facility]3 [place] [address] [email or web address] 09/24/2025 10:30 AM EDT Office Visit [facility] [address] [facility], [address] [place] [address] Magnus Perez MD [address] [facility] [address] [place] [address] [email or web address] documented as of this encounter Visit Diagnoses Not on filedocumented in this encounter Care Teams Social Media Marketing Manager Relationship Specialty Start Date End Date Brett Sharma NP [address] [facility] [place] [address] PCP - General Family Medicine 08/16/21 Arturo Lawrence MD, PhD 55 [facility] Outpatient CareYAW [address] [place] [address] [email or web address] Hematology and Oncology 07/06/17 documented as of this encounter Additional Source Comments The information contained in this document represents components of the legal health record. It is not the complete legal health record.[facility]
--- OUTSIDE RECORDS SUMMARY | 2025-02-01 09:33 | XMS_ITS | Encounter Summary ---
Author Organization [facility] Address [address] [facility] [address] [place] [address] Phone Care Team Providers Care Sheet Metal Assembler Name Role Phone Arturo Lawrence MD, PhD Unavailable [phone] Brett Sharma NP Primary Care Provider + Encounter Details Date Type Department Care Team (Late Contact Info) Description 09/25/2023 Procedure Pass [facility] [address] [place] [phone] Social History Tobacco Use Types Packs/Day Years [...] Description 03/23/2025 3:20 PM EST Office Visit [facility] [address] [facility], [address] [place] [address] Miki Blackwood MD 55 [facility] [address] [place] [address] [email or web address] 04/29/2025 10:30 AM EST Office Visit [facility] [address], 5th [place] [address] Ranjit Morley MD 15 [facility] [address] [place] [address] [email or web address] 05/18/2025 8:45 AM EST Evaluation [facility] [place] [address] [address] Charissa Lew AuD [address] [place] [address] [email or web address] 05/18/2025 9:30 AM EST Office Visit [facility] Otology [address] [address] Arturo Bunn MD, PhD [address] [place] [phone] [email or web address] 08/27/2025 9:10 AM EDT Office Visit [facility] [address] [place] [address] Pooja Jacob MD [address] [address] [email or web address] 09/24/2025 10:30 AM EDT Office Visit [facility] Cardiology [facility] [address] [facility], [address] [place] [address] Magnus Perez MD 55 [facility] [address] [place] [address] [email or web address] documented as of this encounter Visit Diagnoses Not on filedocumented in this encounter Care Teams Sheet Metal Assembler Relationship Specialty Start Date End Date Brett Sharma NP [address] [facility] [place] [address] PCP - General Family Medicine 08/16/21 Arturo Lawrence MD, PhD [address] [place] [address] Outpatient CareYAW [address] [place] [address] [email or web address] Hematology and Oncology 07/06/17 documented as of this encounter Additional Source Comments The information contained in this document represents components of the legal health record. It is not the complete legal health record.[facility]
[2025-02-01 09:36] VITALS: BP 108/64; PULSE 92; RESP 16; TEMP 36.8; O2SAT 98; BMI 25.9
--- NOTE | 2025-02-01 09:36 | MHC.PC.OV ---
Vital Signs 02/01/25 09:36 Height 5 ft 2.5 in Weight 144 lb BMI 25.9 BP 108/64 Blood Pressure Location Lt brachial Position Sitting Respiration 16 Pulse 92 Pulse Source Pulse Oximeter Temp 98.2 F Temp Source Oral Pulse Oximetry (%) 98 Intake Visit Reasons: cervical spine fusion Rigging Loft Repairer Required: No Accompanied by: Unknown Allergies hydrocodone (HYDROCODONE) Allergy (Intermediate, Verified 02/01/25 10:21) HIVES amoxicillin (Augmentin) Allergy (Unknown, Verified 02/01/25 10:21) unknown chlorhexidine Allergy (Unknown, Verified 02/01/25 10:21) unknown clavulanic acid (Augmentin) Allergy (Unknown, Verified 02/01/25 10:21) unknown doxycycline Allergy (Unknown, Verified 02/01/25 10:21) anaphylaxis ibuprofen (IBUPROFEN) Allergy (Unknown, Verified 02/01/25 10:21) HIVES meperidine (Demerol) Allergy (Unknown, Verified 02/01/25 10:21) unknown morphine (MORPHINE) Allergy (Unknown, Verified 02/01/25 10:21) HIVES acetaminophen Allergy (Verified 02/01/25 10:21) Anaphylaxis cephalexin (From Keflex) Allergy (Verified 02/01/25 10:21) Anaphylaxis latex Allergy (Verified 02/01/25 10:21) Unknown prednisone Allergy (Verified 02/01/25 10:21) neuropathy oxycodone (From PERCOCET) Adverse Reaction (Unknown, Verified 02/01/25 10:21) HIVES Medication List - Last Reconciled 02/01/25 by REX Briones- acyclovir 200 mg PO QID albuterol sulfate 90 mcg/actuation (Ventolin HFA) 2 puffs inhalation Q6H PRN budesonide-formoterol 160-4.5 mcg/actuation (Symbicort) 2 puffs inhalation BID buspirone 5 mg PO BID 30 days calcitriol 0.25 mcg PO DAILY cetirizine (Zyrtec) 10 mg PO DAILY esomeprazole magnesium 40 mg PO DAILY levothyroxine 125 mcg PO DAILY montelukast (Singulair) 10 mg PO DAILY pregabalin (Lyrica) 50 mg PO TID Tobacco use date assessed: 02/01/25 Dental Screening Dental Screen Date: 02/01/25 Did you have a dental visit in the last 12 months?: Yes Did you have a dental problem in the last 6 months where you did not have access to dental care?: No Was dental information given to patient?: Patient has dentist HPI cervical spine fusion HPI Details Chief Complaint The patient presents for a preoperative evaluation for cervical fusion surgery. History of Present Illness The patient is a 49-year-old female presenting for a preoperative evaluation for cervical fusion surgery. She has been evaluated by a neurosurgeon and is scheduled for cervical fusion at C4-C5, possibly extending to C5-C6, on the of this month. The patient has a history of tachycardia, for which she recently visited the emergency room. The tachycardia was not sustained, and she regularly sees a commissioner public works due to her history of hemochromatosis and previous episodes of tachycardia. She undergoes regular echocardiograms and is aware of the need for cardiology clearance prior to surgery, which she has reportedly obtained. Social History Health Maintenance Review of Systems Physical Exam General: Cooperative, healthy appearing, comfortable, no acute distress and well developed Orientation: Patient oriented x3 Limitations: Limited range of motion to her right upper extremity Head: Normal to inspection Ears: Hearing grossly normal bilaterally Nose: Normal external nose present Face and sinus: Normal facial exam Eyes: Appearance normal, both eyes and all related structures Neck: Normal visual inspection and limited ROM, especially turning to the right Respiratory: Normal respiratory effort and able to speak in complete sentences. Clear to auscultation bilaterally Cardiovascular: Regular rate and rhythm. Normal S1 and S2 GI: Normal to inspection. Soft to palpation and nontender Skin: No rashes or lesions noted Neuro: Patient oriented x3 Extremities: Limited range of motion to her right upper extremity Results Plan 1. Cervical Fusion The patient is scheduled for cervical fusion at C4-C5, possibly extending to C5-C6, on the of this month. She has been evaluated by a neurosurgeon and is cleared from a surgical standpoint. 2. Tachycardia The patient has a history of tachycardia and recently visited the emergency room for an episode that was not sustained. She is under regular cardiology care and undergoes echocardiograms routinely. Cardiology clearance for surgery has reportedly been obtained. 3. Hemochromatosis The patient has a history of hemochromatosis and is under regular cardiology care due to its implications. Discussion Notes The patient was informed about the upcoming cervical fusion surgery and the necessity of cardiology clearance due to her history of tachycardia and hemochromatosis. I confirmed that she has reportedly obtained this clearance and is clear from a surgical standpoint. Patient Instructions - Ensure cardiology clearance is documented before surgery. - Follow up with neurosurgeon as scheduled for surgery on the . [facility] Medical History Degenerative cervical disc Foraminal stenosis of cervical region Fibromuscular dysplasia of carotid artery Tinnitus Hearing loss Hernia GERD (gastroesophageal reflux disease) Thyroid cancer Elevated liver function tests Barretts esophagus Enlarged thyroid MVP (mitral valve prolapse) Fibroadenoma of left breast Renal cyst Hepatic hemangioma Hepatic adenoma Asthma Hemochromatosis Nodular thyroid disease Surgical History Hx of prior ablation treatment Hx of partial thyroidectomy History of esophagogastroduodenoscopy (EGD) H/O colonoscopy H/O thyroidectomy History of tonsillectomy and adenoidectomy History of section Family History Father HTN (hypertension) Type 2 diabetes mellitus High cholesterol Ulcerative colitis Mother Pulmonary embolism Multiple myeloma Maternal Grandmother Diabetes mellitus CVD (cardiovascular disease) Maternal Grandfather CVD (cardiovascular disease) Paternal Grandfather Substance use disorder Paternal Grandmother Uterine cancer Maternal Uncle CVD (cardiovascular disease) Substance use disorder Sister No problems noted. Son No problems noted. Daughter No problems noted. Social History Housing: House Alcohol intake: current Alcohol intake frequency: holidays/special occasions only Patient Tobacco Use Status: Never used Tobacco e-Cigarette/Vaping Use: Never Used Second Hand Smoke Exposure: No service: No Current occupational status: employed Current occupation: [employer] Current occupational exposures/hazards: No Cognitive needs: No Hearing needs: No Vision needs: No Questionnaire PHQ-9 Over the last 2 weeks, how often have you been bothered by any of the following problems? 1. Little interest or pleasure in doing things: not at all 2. Feeling down, depressed, or hopeless: not at all 3. Trouble falling or staying asleep, or sleeping too much: not at all 4. Feeling tired or having little energy: several days 5. Poor appetite or overeating: not at all 6. Feeling bad about yourself - or that you are a failure or have let yourself or your family down: not at all 7. Trouble concentrating on things, such as reading the newspaper or watching television: not at all 8. Moving or speaking so slowly that other people could have noticed. Or the opposite - being so fidgety or restless that you have been moving around a lot more than usual: not at all 9. Thoughts that you would be better off or of hurting yourself in some way: not at all Total score: 1 Depression Screening Interpretation: Negative Depression Screening Done: Yes 55715 - PHQ-9 Billing: Yes Source: Developed by Drs. Rosales Rose, Thelma Willams, King Larson and colleagues, with an educational marjorie from [employer]. Thrive Questionnaire Date Thrive assessed: 07/16/24 I am a: Patient What is your living situation today?: I have a steady place to live Within the past 12 months, did the food you bought not last and you didn't have the money to get more?: Never true Within the past 12 months, did you worry whether your food would run out before you got money to buy more?: Never true Do you have trouble paying for medicines?: No Do you have trouble getting transportation to medical appointments?: No Do you have trouble paying your heating and electricity bill?: No Do you have trouble taking care of your child, family member or friend?: No Do you have trouble with day-to-day activities such as bathing, preparing meals, shopping, managing finances, etc.?: No Are you currently unemployed and looking for a job?: No Are you interested in more education?: No Please select the resources that you would like help with: None Currently or been in a relationship where the following occur: No concerns reported THRIVE Score: 0 ABI-7 AMB Questionnaire ABI-7 Date ABI - 7 assessed: 02/01/25 Feeling nervous, anxious, or on edge: 0 = Not at all Not being able to stop or control worryin = Not at all Worrying too much about different things: 0 = Not at all Trouble relaxin = Not at all Being so restless that it is hard to sit still: 0 = Not at all Becoming easily annoyed or irritable: 0 = Not at all Feeling afraid as if something awful might happen: 0 = Not at all Total ABI-7 score (0-4 normal; 5-9 mild; 10-14 moderate; 15-21 severe): 0 Source: Developed by Drs. Rosales Rose, Thelma Willams, King Larson and colleagues, with an educational marjorie from [employer]. ABI-7 Assessment Billing ABI-7 Assessment Tool: ABI-7 Assessment 77899 Physical exam (Primary Care) Vital Signs: Last Vital Signs Temp 98.2 F 02/01/25 09:36 Pulse 92 02/01/25 09:36 Resp 16 02/01/25 09:36 BP 108/64 02/01/25 09:36 Pulse Ox 98 02/01/25 09:36 BMI result Body Mass Index 25.9 Tobacco/Smoking Status: Tobacco use Status Tobacco use date assessed 02/01/25 02/01/25 09:44 Patient Tobacco Use Status Never used Tobacco 02/01/25 09:44 e-Cigarette/Vaping Use Never Used 02/01/25 09:44 PHQ-9: PHQ-9 Score PHQ-9: Total score 1 02/01/25 09:46 Depression Screening Interpretation: Negative Thrive Assessment: Date of Thrive Assessment Date Thrive assessed 07/16/24 02/01/25 09:44 Currently or been in a relationship where the following occur: No concerns reported Coding Level of Care Code Est Pt Level 3 (40405) Est Pt Prev Care 40-64y(79157) Diagnoses Preoperative clearance Z01.818 Additional Codes ABI-7 Assessment Billing - ABI-7 Assessment Tool: ABI-7 Assessment 69414 ([id number]) PHQ-9 - 55640 - PHQ-9 Billing: Yes ([id number]) Assessment & Plan Assessment & Plan (1) Preoperative clearance: Code(s): Z01.818 - Encounter for other preprocedural examination Category: Medical Plan . Orders: Orders Complete Blood Count Auto Diff Today Z01.818 - Encounter for other preprocedural examination Comprehensive Met. Panel Today Z01.818 - Encounter for other preprocedural examination TSH reflex Free T4 Today Z01.818 - Encounter for other preprocedural examination Prothrombin Time INR Today Z01.818 - Encounter for other preprocedural examination UA CC w/rflx Micro + Cult Today Z01.818 - Encounter for other preprocedural examination Partial Thromboplastin Time Today Z01.818 - Encounter for other preprocedural examination
== END 2025-02-01 11:13 | disposition home or self-care (01) ==
LOC: HO.HMCC 09:28
PROVIDERS: PCP Nurse Practitioner Family; Visit Provider Nurse Practitioner Family
DX: M48.02 Spinal stenosis, cervical region (principal); R00.0 Tachycardia, unspecified; Z01.818 Encounter for other preprocedural examination

== ENCOUNTER 2025-03-27 11:39 | Outpatient (REF) | payer OTHER, SELFPAY ==
--- OUTSIDE RECORDS SUMMARY | 2025-03-25 09:00 | XMS_ITS | Encounter Summary ---
Author Organization Formerly [facility] Address [address] [place] [address] Care Team Providers Care Hims Coder Name Role Phone Brett Sharma NP Primary Care Provider [phone] Isis Young RN Unavailable [phone] Tip Campos MD Unavailable Magnus Perez MD Unavailable System, Provider Not In Unavailable Unavaila Miki Diana MD Unavailable [phone] Raúl Pike MD Unavailable Jorge Moreno DO Unavailable [phone] Arturo Bunn MD Unavailable Leatha Mc Unavailable [phone] Encounter Details Date Type Department Care Team (Late st Contact Info) Description 03/25/2025 9:00 AM EST Office Visit [facility] [address] [place] [phone] Michael Long MD [address] [place] [address] 210 [place] [address] Abdominal pannus (Primary Dx); Umbilical hernia without obstruction and without gangrene; Scar condition and fibrosis of skin Social History Tobacco Use Types Packs/Day Years Used Date Smoking Tobacco: Never Passive Smoke Exposure: Never Smokeless Tobacco: Never Alcohol Use Standard Drinks/Week Comments Yes 0 (1 standard drink = 0.6 oz pur e alcohol) rare, none for 2 months AUDIT-C Answer Date Recorded Q1: How often do you have a drink containing alc ohol? Monthly or less 02/01/2025 Q2: How many drinks containi ng alcohol do you have on a typical day when you are drinking? 1 or 2 02/01/2025 Q3: How often do you have si x or more drinks on one occasion? Never 02/01/2025 PHQ-2 Answer Date Recorded PHQ-2 Total Score 0 02/05/2025 Hunger Vital Sign Answer Date Recorded Within the past 12 months, y ou worried that your food would run out before you got the money to buy more. Never true 02/06/20 25 Within the past 12 months, t he food you bought just didn't last and you didn't have money to get more. Never true 02/05/2025 PRAPARE - Transportation Answer Date Re corded In the past 12 months, has l ack of transportation kept you from medical appointments or from getting medications? No 01/20 In the past 12 months, has l ack of transportation kept you from meetings, work, or from getting things needed for daily living? No 02/05/2025 Housing Stability Vital Sign Answer Casey e Recorded In the last 12 months, was t here a time when you were not able to pay the mortgage or rent on time? No 02/05/2025 In the past 12 months, how m any times have you moved where you were living? 0 02/05/2025 At any time in the past 12 m [facility], were you homeless or living in a long term (including now)? No 02/05/2025 [facility] Utilities Answer Date Recorded In the past 12 months has th e [employer], gas, oil, or water [employer] threatened to shut off services in your home? No 02/05/2025 Comments Unknown Sex and Gender Information Value Date Recorded Sex Assigned at Female 03/03/2024 11:57 AM EST Legal Sex Female 1:15 PM EST Gender Identity Female 03/03/2024 11:57 AM EST Sexual Orientation Heterosexual (straight) 03/03 11:57 AM EST documented as of this encounter Progress Notes * Michael Long MD - 03/25/2025 9:56 AM EST Did not show for today's follow-up visit. documented in this encounter Plan of Treatment Upcoming Encounters Date Type Department Care Team (Late st Contact Info) Description 03/31/2025 9:00 AM EST Treatment [facility] 35 [facility] [place] [address] Leatha Mc PA 85 [facility] [address] [place] [address] Zeina Messer CCC-BUILD MASTER 1559 [place] [address] 03/31/2025 10:00 AM EST Office Visit [facility] [place] 85 [facility] [address] [place] [phone] Samara Mendoza PA-C 85 [facility] [address] [place] [address] documented as of this encounter Goals Goal Patient Goal Type Associated Problems Recent Progress Patient-Stated? Author ST LTG 1 Speech Therapy No Zeina Messer CCC-BUILD MASTER Note: Pt will tolerate least restrictive diet without s/s aspiration. ST STG 1 Speech Therapy No Zeina Messer CCC-BUILD MASTER Note: Pt will complete an instrumental swallowing evaluation within 2 weeks. Additional goals to be set as indicated. documented as of this encounter Visit Diagnoses Diagnosis Abdominal pannus- Primary Umbilical hernia without obstruction and without gangrene Scar condition and fibrosis of skin documented in this encounter Care Teams Hims Coder Relationship Specialty Start Date End Date Brett Sharma NP [address] [place] [address] PCP - General Family Medicine 03/03/24 Isis Young, DANE 80 [place] [address] Nurse Navigator Surgery, Neurosurgery 01/25/25 Tip Campos MD [address] [address] Surgery, Neurosurgery 02/01/25 Magnus Perez MD [address] [place] [phone] Cardiovascular Disease 02/01/25 System, Provider Not In [address] [place] [phone] Hematology Oncology 02/01/25 Miki Blackwood MD [address] [place] [address] Endocrinology 02/01/25 Raúl Pike MD [address] [place] [address] Gastroenterology 02/01/25 Jorge Moreno DO [address] [place] [address] 201 [place] [address] Immunology 02/01/25 Arturo Bunn MD [address] [place] [address] Otolaryngology 02/01/25 Leatha Mc PA [address] [address] Physician Wire Cutter Surgery, Neurosurgery 02/05/25 documented as of this encounter
--- OUTSIDE RECORDS SUMMARY | 2025-03-27 11:42 | XMS_ITS | Encounter Summary ---
Author Organization [facility] Address [address] [place] [address] Care Team Providers Care Tallier Name Role Phone Brett Sharma NP Primary Care Provider + [phone] Isis Young RN Unavailable Tip Campos MD Unavailable [phone] Magnus Perez MD Unavailable [phone] System, Provider Not In Unavailable Unavaila Miki Diana MD Unavailable [phone] Raúl Pike MD Unavailable Jorge Moreno DO Unavailable Arturo Bunn MD Unavailable Leatha Mc Unavailable [phone] Encounter Details Date Type Department Care Team (Late st Contact Info) Description 03/25/2025 Scanned Document [facility] [place] 85 [facility] [address] [place] [address] Samara Mendoza PA-C 85 [facility] Joshua [address] [place] [address] Social History Tobacco Use Types Packs/Day Years [...] any time in the past 12 m [facility], were you homeless or living in a custodial (including now)? No 02/05/2025 [facility] Utilities Answer Date Recorded In the past 12 months has th e electric, gas, oil, or water company threatened to shut off services in your [...] Info) Description 03/31/2025 9:00 AM EST Treatment [facility] Yung [address] [place] [address] EMILI Barragan [phone] Leatha Mc PA [address] [phone] Zeina Messer CCC-SYSTEM SALES CONSULTANT [address] [place] [address] 03/31/2025 10:00 AM EST Office [facility] [place] 85 [facility] [address] [place] [phone] Samara Mendoza PA-C [address] [phone] documented as of this encounter Goals Goal Patient Goal Type Associated Problems Recent Progress Patient-Stated? Author ST LTG 1 Speech Therapy No Zeina Messer CCC-SLP Note: Pt will tolerate least restrictive diet without s/s aspiration. ST STG 1 Speech Therapy No Zeina Messer CCC-SLP Note: Pt will complete an instrumental swallowing evaluation within 2 weeks. Additional goals to be set as indicated. documented as of this encounter Visit Diagnoses Not on filedocumented in this encounter Care Teams Tallier Relationship Specialty Start Date End Date Brett Sharma NP [address] [place] [address] PCP - General Family Medicine 03/03/24 Isis Young RN 80 [place] [address] Nurse Navigator Surgery, Neurosurgery 01/25/25 Tip Campos MD [address] [phone] Surgery, Neurosurgery 02/01/25 Magnus Perez MD [address] [phone] Cardiovascular Disease 02/01/25 System, Provider Not In [address] [place] [phone] Hematology Oncology 02/01/25 Miki Blackwood MD 15 [place] [address] Endocrinology 02/01/25 Raúl Pike MD [address] [place] [address] Gastroenterology 02/01/25 Jorge Moreno DO 269 [facility] 201 [place] [address] Immunology 02/01/25 Arturo Bunn MD [address] [place] [address] Otolaryngology 02/01/25 Leatha Mc PA 85 [facility] 1003 [place] [address] Physician Cloud Developer Surgery, Neurosurgery 02/05/25 documented as of this encounter
--- OUTSIDE RECORDS SUMMARY | 2025-03-27 11:42 | XMS_ITS | Encounter Summary ---
Author Organization [facility] Address [address] [place] [address] Care Team Providers Care Cut Off Machine Helper Name Role Phone Brett Sharma NP Primary Care Provider + [phone] Isis Young RN Unavailable Tip Campos MD Unavailable [phone] Magnus Perez MD Unavailable [phone] System, Provider Not In Unavailable Unavaila Miki Diana MD Unavailable [phone] Raúl Pike MD Unavailable [phone] Jorge Moreno DO Unavailable Arturo Bunn MD Unavailable Leatha Mc Unavailable [phone] Encounter Details Date Type Department Care Team (Late st Contact Info) Description 02/03/2025 Scanned Document [facility] [place] 85 [facility] [address] [place] [phone] Samara Mendoza PA-C 85 [facility] Joshua [address] [place] [address] Social History Tobacco Use Types Packs/Day [...] any time in the past 12 m [facility], were you homeless or living in a custodial (including now)? No 02/05/[address] [facility] Utilities Answer Date Recorded In the [...] as of this encounter Functional Status * PHQ-2 Total Score Answer Date of Assessment Author 0 02/05/2025 6:49 AM EDT Ro Anaya RN * Question Answer Date of Assessment Author Little interest or pleasure in doing things Not at all 02/05/2025 6:49 AM EDT Lisa Anaya RN Feeling down, depressed, or hopeless Not at all 02/05/2025 6:49 AM EDT Lisa Anaya RN * Over the past 2 weeks, how often have you been bothered by any of the following problems? Question Answer Date of Assessment Author Patient Health Questionnaire-2 Score 0 01/20 6:49 AM EDT Lisa Anaya RN * Level of Risk per Screen Answer Date of Assessment Author Low Risk 02/05/2025 6:49 AM EDT Ro Anaya RN documented as of this encounter Plan of Treatment Upcoming Encounters Date Type Department Care Team (Late st Contact Info) Description 03/31/2025 9:00 AM EST Treatment [facility] 35 [place] [address] Leatha Mc PA [address] [place] [address] Zeina Messer, [facility]-PHARMACEUTICAL PLANT OPERATOR [address] [place] [address] 03/31/2025 10:00 AM EST Office Visit [facility] [place] [address] [phone] Samara Mendoza PA-C [address] [phone] documented as of this encounter Visit Diagnoses Not on filedocumented in this encounter Care Teams Cut Off Machine Helper Relationship Specialty Start Date End Date Brett Sharma NP [address] [place] [address] PCP - General Family Medicine 03/03/24 Isis Young RN 80 [place] [address] Nurse Navigator Surgery, Neurosurgery 01/25/25 Tip Campos MD [address] [address] Surgery, Neurosurgery 02/01/25 Magnus Perez MD [address] [place] [phone] Cardiovascular Disease 02/01/25 System, Provider Not In [address] [place] [phone] Hematology Oncology 02/01/25 Miki Blackwood MD [address] [place] [address] Endocrinology 02/01/25 Raúl Pike MD [address] [place] [address] Gastroenterology 02/01/25 Jorge Moreno DO [address] [place] [address] Immunology 02/01/25 Arturo Bunn MD [address] [place] [address] Otolaryngology 02/01/25 Leatha Mc PA [address] [address] Physician Electric Golf Cart Repairer Surgery, Neurosurgery 02/05/25 documented as of this encounter
--- OUTSIDE RECORDS SUMMARY | 2025-03-27 11:42 | XMS_ITS | Encounter Summary ---
Author Organization [facility]ly [facility] Address 100 [place] [address] Care Team Providers Care Sheet Folder Name Role Phone Brett Sharma NP Primary Care Provider [phone] Isis Young RN Unavailable [phone] Tip Campos MD Unavailable Magnus Perez MD Unavailable [phone] System, Provider Not In Unavailable Unavaila Miki Diana MD Unavailable [phone] Raúl Pike MD Unavailable [phone] Jorge Moreno DO Unavailable [phone] Arturo Bunn MD Unavailable Leatha Mc Unavailable [phone] Encounter Details Date Type Department Care Team (Late st Contact Info) Description 02/03/2025 Results Follow-Up [facility] [place] [address] [place] [address] 2nd [address] [place] [address] Ginny White PA [address] [place] [address] [address] [place] [address] Social History Tobacco Use Types Packs/Day Years [...] any time in the past 12 m [facility], were you homeless or living in a snf (including now)? No 02/05/2025 [facility] Utilities Answer Date Recorded In the past 12 months has th e [employer], gas, oil, or water [employer] threatened to shut off services in your [...] of Assessment Author 0 02/05/2025 6:49 AM EDRo Christian RN * Question Answer Date of Assessment Author Little interest or pleasure in doing things Not at all 02/05/2025 6:49 AM EDT Lisa Anaya RN Feeling down, depressed, or hopeless Not at all 02/05/2025 6:49 AM EDT Lisa Aanya RN * Over the past 2 weeks, [...] Info) Description 03/31/2025 9:00 AM EST Treatment [facility] 35 [place] [address] Leatha Mc PA [address] [place] [address] Zeina Messer, [facility])-PHARMACOGNOSY TEACHER [address] [place] [address] 03/31/2025 10:00 AM EST Office Visit [facility] [place] [address] [phone] Samara Mendoza PA-C [address] [place] [phone] documented as of this encounter Visit Diagnoses Not on filedocumented in this encounter Care Teams Sheet Folder Relationship Specialty Start Date End Date Brett Sharma NP [address] [place] [address] PCP - General Family Medicine 03/03/24 Isis Young RN 80 [place] [address] Nurse Navigator Surgery, Neurosurgery 01/25/25 Tip Campos MD [address] [address] Surgery, Neurosurgery 02/01/25 Magnus Perez MD [address] [place] [phone] Cardiovascular Disease 02/01/25 System, Provider Not In [address] [place] [phone] Hematology Oncology 02/01/25 Miki Blackwood MD [address] [place] [address] Endocrinology 02/01/25 Raúl Pike MD [address] [place] [address] Gastroenterology 02/01/25 Jorge Moreno DO [address] [place] [address] 201 [place] [address] Immunology 02/01/25 Arturo Bunn MD [address] [place] [address] Otolaryngology 02/01/25 Leatha Mc PA [address] [address] Physician Revenue Specialist Surgery, Neurosurgery 02/05/25 documented as of this encounter
--- OUTSIDE RECORDS SUMMARY | 2025-03-27 11:43 | XMS_ITS | Encounter Summary ---
Author Organization [facility] Address [address] [place] [address] Care Team Providers Care Draw End Hand Name Role Phone Brett Sharma NP Primary Care Provider + [phone] Isis Young RN Unavailable Tip Campos MD Unavailable Magnus Perez MD Unavailable [phone] System, Provider Not In Unavailable Unavaila Miki Diana MD Unavailable [phone] Raúl Pike MD Unavailable Jorge Moreno DO Unavailable Arturo Bunn MD Unavailable Leatha Mc Unavailable [phone] Encounter Details Date Type Department Care Team (Late st Contact Info) Description 03/19/2025 Scanned Document [facility] Neurosurgery [address] [address] Tip Campos MD [address] [place] [address] Social History Tobacco Use Types Packs/Day [...] any time in the past 12 m [facility], were you homeless or living in a intermediate (including now)? No 02/05/2025 [facility] Utilities Answer Date Recorded In the [...] Info) Description 03/31/2025 9:00 AM EST Treatment [facility] Yung [address] [place] [address] EMILI Barragan [address] Leatha Mc PA [address] [phone] Zeina Messer CCC-ASSISTANT GOLF COACH [address] [place] [address] 03/31/2025 10:00 AM EST Office Visit [facility] [place] 85 [facility] [address] [place] [phone] Samara Mendoza PA-C [address] [phone] documented as of this encounter Goals Goal Patient Goal Type Associated Problems Recent Progress Patient-Stated? Author ST LTG 1 Speech Therapy No eZina Messer CCC-SLP Note: Pt will tolerate least restrictive diet without s/s aspiration. ST STG 1 Speech Therapy No Zeina Messer CCC-SLP Note: Pt will complete an instrumental swallowing evaluation within 2 weeks. Additional goals to be set as indicated. documented as of this encounter Visit Diagnoses Not on filedocumented in this encounter Care Teams Draw End Hand Relationship Specialty Start Date End Date Brett Sharma NP [address] [place] [address] PCP - General Family Medicine 03/03/24 Isis Young RN 80 [place] [address] Nurse Navigator Surgery, Neurosurgery 01/25/25 Tip Campos MD [address] [phone] Surgery, Neurosurgery 02/01/25 Magnus Perez MD [address] [phone] Cardiovascular Disease 02/01/25 System, Provider Not In [address] [place] [phone] Hematology Oncology 02/01/25 Miki Blackwood MD 15 [place] [address] Endocrinology 02/01/25 Raúl Pike MD [address] [place] [address] Gastroenterology 02/01/25 Jorge Moreno DO 269 [facility] 201 [place] [address] Immunology 02/01/25 Arturo Bunn MD [address] [place] [address] Otolaryngology 02/01/25 Leatha Mc PA 85 [facility] 1003 [place] [address] Physician Waiter/Waitress Tavern Surgery, Neurosurgery 02/05/25 documented as of this encounter
--- OUTSIDE RECORDS SUMMARY | 2025-03-27 11:43 | XMS_ITS | Encounter Summary ---
Author Organization [facility] Address [address] [facility] [address] [place] [address] Phone Care Team Providers Care Dress Shoe Inspector Name Role Phone Arturo Lawrence MD, PhD Unavailable [phone] Brett Sharma NP Primary Care Provider + Reason for Visit * Reason Onset Date Comments s/p procedure question 10/08/2023 Shannen Hernandez Encounter Details Date Type Department Care Team (Late st Contact Info) Description 10/08/2023 Telephone [facility] Gynecology 55 [facility], 4th Floor, [address] [place] [address] Shannen Hayward MD [address] [place] [place] [address] [email or web address] s/p procedure question (Shannen Hayward) [...] Care Team (Late st Contact Info) Description 04/13/2025 3:00 PM EST Office Visit [facility] [address] [facility], [address] [place] [address] Miki Blackwood MD 55 [facility] [address] [place] [address] [email or web address] 04/29/2025 10:30 AM EST Office Visit [facility] 55 [facility], 5th [place] [address] Ranjit Morley MD [address] [address] [email or web address] 05/18/2025 8:45 AM EST Evaluation [facility] Audiology [address] [address] Charissa Lew AuD [address] [place] [address] [email or web address] 05/18/2025 9:30 AM EST Office Visit [facility] Otology [address] [address] Arturo Bunn MD, PhD [address] [place] [address] [email or web address] 08/27/2025 9:10 AM EDT Office Visit [facility] [address] [place] [address] Pooja Jacob MD 75 [facility] [place] [address] [email or web address] 09/24/2025 10:30 AM EDT Office Visit [facility] Cardiology [facility] [address] [facility], [address] [place] [address] Magnus Perez MD 55 [facility] [address] [place] [address] [email or web address] documented as of this encounter Visit Diagnoses Not on filedocumented in this encounter Care Teams Dress Shoe Inspector Relationship Specialty Start Date End Date Brett Sharma NP [address] [facility] [place] [address] PCP - General Family Medicine 08/16/21 Arturo Lawrence MD, PhD 55 [facility] Care[facility] [address] [place] [address] [email or web address] Hematology and Oncology 07/06/17 documented as of this encounter Additional Source Comments The information contained in this document represents components of the legal health record. It is not the complete legal health record.[facility]
--- OUTSIDE RECORDS SUMMARY | 2025-03-27 11:43 | XMS_ITS | Clinical Summary ---
Author Organization [facility] Address [address] [place] [address] Care Team Providers Care Occupational Safety And Health Manager Name Role Phone Rosalind Vizcarra NP Primary Care Provider Isis Young RN Unavailable Makayla Campos MD Unavailable Magnus Perez MD Unavailable [phone] System, Provider Not In Unavailable Unavaila Miki Diana MD Unavailable [phone] Raúl Pike MD Unavailable [phone] Jorge Moreno DO Unavailable [phone] Arturo Bunn MD Unavailable Leatha Mc Unavailable [phone] Allergies Active Allergy Reactions Criticality Noted Date Comments Amoxicillin-Pot Clavulanate Anaphylaxis High 10/19/2013 Cinnamon Anaphylaxis High 12/31/2023 Doxycycline Anaphylaxis High 05/03/2017 Lidocaine Rash/Dermatitis High 02/07/2025 Hydrocodone-Acetamin ophen Swelling Medium 05/03/2017 Ok with tylenol Ibuprofen Shortness Of Breath,Anaphylaxis High 12/31/2023 Delayed hypersensitivity reaction Cephalexin Anaphylaxis High 01/27/2025 Latex Rash/Dermatitis Medium 05/21/2019 Meperidine Swelling Medium 05/03/2017 Morphine Itching,Swelling Medium 10/19/2013 Mupirocin Rash/Dermatitis Low 02/02/2025 Prednisone Other (See Comments) Medium 08/28/2022 Neuropathy OK TO TAKE DECADRON Strawberries Anaphylaxis,Hives High 04/04/2017 Tramadol Unknown/Patient and Family Unable to Define Medium 09/12/2023 Made me feel funny Turnip Anaphylaxis High 02/01/2025 Valacyclovir Other (See Comments) Medium 08/28/2022 NEUROPATHY Medications Symbicort 160-4.5 MCG/ACT inhaler Inhale 2 puffs as needed. 4 Active levothyroxine (SYNTHROID, LEVOTHROID) 125 MCG tablet Take 1 tablet (125 mcg total) by mouth every morning. 4 Active levalbuterol (XOPENEX HFA) 45 mcg/puff inhaler Inhale 2 puffs every 4 (four) hours as needed. 4 Active calcium carbonate (TUMS) 500 MG chewable tablet Chew 1 tablet (500 mg total) as needed. Active Restasis 0.05 % ophthalmic emulsion Administer 1 drop to both eyes twice daily (every 12 hours). 5 Active montelukast (SINGULAIR) 10 MG tablet Take 1 tablet (10 mg total) by mouth nightly. 5 Active OMEprazole (PriLOSEC) 20 MG capsule Take 1 capsule (20 mg total) by mouth every morning before breakfast. Active carboxymethylce llulose (REFRESH PLUS) 0.5 % Solution Administer 1 drop to both eyes 4 (four) times a day as needed for dry eyes. Active Albuterol-Budes onide 90-80 MCG/ACT Aerosol Inhale as needed. Active levonorgestrel (MIRENA) 20 mcg/24hr IUD 1 Intra Uterine Device by Intrauterine route once. Active busPIRone (BUSPAR) 5 MG tablet Take 1 tablet (5 mg total) by mouth 2 (two) times a day. Active MISC MEDICATION/NEUT RACEUTICAL by Does not apply route. FIBER VIACTIV- VITAMIN D AND C PROTEIN POWDER MVI Active levocetirizine (XYZAL) 5 MG tablet Take 1 tablet (5 mg total) by mouth daily as needed for allergies. Active EPINEPHrine (Neffy) 1 MG/0.1ML Solution into each nostril once as needed (anaphylactic reaction). Active acyclovir (ZOVIRAX) 200 mg capsule Take 1 capsule (200 mg total) by mouth 2 (two) times a day. Active methylPREDNISol one (MEDROL DOSEPAK) 4 MG tabletIndicatio ns:Cervical spondylosis follow package directions 21 tablet 5 Active acetaminophen (TYLENOL) 325 MG tabletIndicatio ns:Cervical spondylosis Take 3 tablets (975 mg total) by mouth every 6 (six) hours. 360 tablet 5 Active esomeprazole (NexIUM) 40 MG capsule TAKE 1 CAPSULE BY MOUTH EVERY DAY; Duration: 90 Active Active Problems Problem Noted Date Diagnosed Date Cervical spondylosis 02/05/2025 Prediabetes 02/03/2025 Assessment & Plan (02/03/2025 2:41 PM EDT): A1c 5.7. advised ADA diet. PCP follow up to monitor. Anesthesia complication 02/02/2025 Assessment & Plan (02/02/2025 1:44 PM EDT): Reports difficulty breathing following abdominoplasty surgery, sx had improved with neb treatment in PACU. She states she has told they had difficulty with extubation. Chest pain 01/25/2025 Tachycardia, paroxysmal 01/25/2025 Assessment & Plan (02/02/2025 1:29 PM EDT): Patient presented to /H on 01/24/25 with incidental finding of heart rate of 170-175/min on her Apple watch tracing Patient with known history of mitral valve prolapse mild posterior leaflet trace MR. As noted per echo on September/2024. Troponin initially 51-->58--->58 Anticipating likely troponin elevation related to tachycardia EKG reviewed showed sinus tachycardia done on arrival rate 125 bpm left axis deviation Patient follows with cardiology ( Dr. Manuel Perez) in [place]. Per his recent notes (02/01/25)-Discussed pursuing a coronary CT-angiogram given the troponin during the recent admission. With no apparent cardiac symptoms that is not required prior to the planned surgery on Feb 05. Assessment & Plan (01/25/2025 3:15 AM EDT): [...] esophagitis without hemorrhage 01/25/2025 Assessment & Plan (02/02/2025 11:24 AM EDT): Maintained on prn tums and Omeprazole. Assessment & Plan (01/25/2025 2:14 AM EDT): Continue pantoprazole 40 mg daily History of asthma 01/25/2025 Assessment & Plan (02/02/2025 1:40 PM EDT): Stable asthma, no recent flare. Maintained on daily symbicort, montelucast, and prn albuterol. Assessment & Plan (01/25/2025 2:14 AM EDT): [...] home dose Hemochromatosis 01/25/2025 Assessment & Plan (02/02/2025 1:39 PM EDT): Therapeutic phlebotomy in the past, most recent 2021. 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 Per most recent hematology note the last lobotomy was done in August/2021. 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 -maintained on levothyroxine -TSH 0.47 (12/25/23) -PTH 39 -Free T3 2.9 -Free T4 1.6 Assessment & Plan (01/25/2025 2:14 AM EDT): [...] stenosis of spine 01/25/2025 Assessment & Plan (02/02/2025 1:31 PM EDT): ACDF 4-[address] Campos on 02/05/25. Assessment & Plan (01/25/2025 2:14 AM EDT): [...] medication DVT prophylaxis as required as well Bilateral hearing loss 01/01/2025 Mitral valve prolapse 11/22/2017 Assessment & Plan (02/02/2025 1:42 PM EDT): TTE 09/2024 LEVF 64%, mild MVP, trace MR. Resolved Problems Problem Noted Date Diagnosed Date Resolved Date Asthma exacerbation, mild 03/03/2024 Encounters Date Type Department Care Team Description 03/25/2025 9:00 AM EST Office Visit [facility] [address] [place] [phone] Michael Long MD Abdominal pannus (Primary Dx); Umbilical hernia without obstruction and without gangrene; Scar condition and fibrosis of skin 03/25/2025 Scanned Document [facility] Neurosurgery [address] [place] [phone] Samara Mendoza PA-C 03/19/2025 Scanned Document [facility] Neurosurgery [address] [place] [phone] Makayla Campos MD 03/19/2025 Scanned Document [facility] Neurosurgery [address] [place] [phone] Makayla Campos MD 03/09/2025 Scanned Document [facility] Neurosurgery [place] [address] [facility] [address] [place] [address] Leatha Mc PA 03/05/2025 9:00 AM EST Office Visit [facility] [address] [phone] Alonzo Root MD Dysphonia (Primary Dx); Laryngeal spasm; Muscle tension dysphonia; History of fusion of cervical spine; Chronic rhinitis; Unilateral partial vocal fold paralysis 02/26/2025 7:38 AM EST - 02/26/2025 11:59 PM EST Hospital Encounter [facility] Radiology [address] [place] [phone] Samara Mendoza PA-C Dysphagia, unspecified type; S/P cervical spinal fusion Discharge Disposition: Home or Self Care 02/24/2025 1:00 PM EST Evaluation [address] [phone] Leatha Mc PA Falk, Janice, [facility]-INFORMATION CLERK CASHIER Dysphagia, pharyngeal phase (Primary Dx); S/P cervical spinal fusion 02/24/2025 Plan of Care Documentation [address] [phone] 02/24/2025 Scanned Document [facility]surgery [place] [address] [facility] [address] [place] [phone] Makayla Campos MD 02/19/2025 11:40 AM EDT Ancillary Procedure [facility] Radiology [address] [place] [phone] Provider, File Room 02/19/2025 11:35 AM EDT Ancillary Procedure [facility]iology [address] [place] [phone] Provider, File Room 02/19/2025 11:35 AM EDT Ancillary Procedure [facility] [address] [place] [address] Provider, File Room 02/19/2025 10:00 AM EDT Office Visit [facility]surgery [place] [address] [facility] [address] [place] [address] Leatha Mc PA S/P cervical spinal fusion (Primary Dx); Dysphonia; Cervical disc disorder with radiculopathy; Fibromuscular dysplasia 02/17/2025 Scanned Document [facility] [place] [address] [facility] [address] [place] [address] Leatha Mc PA 02/09/2025 Scanned Document [facility] Neurosurgery [address] [phone] Neurosurgery, Scan 02/05/2025 8:15 AM EDT - 02/05/2025 12:[address] [facility] [address] [place] [address] Makayla Campos MD ACDF 4-6 02/05/2025 8:13 AM EDT Anesthesia Event [facility] [address] [place] [address] Conrad Jiang MD 02/05/2025 6:14 AM EDT - 02/07/2025 2:04 PM EDT Hospital Encounter [facility] [address] [place] [phone] Makayla Campos MD Cervical spondylosis (Primary Dx) Discharge Disposition: Home or Self Care 02/03/2025 Scanned Document [facility] [place] [address] [facility] [address] [place] [address] Samara Mendoza PA-C 02/03/2025 Results Follow-Up [facility] [address] [facility] 2nd [address] [place] [address] Ginny White PA 02/02/2025 10:30 AM EDT Pre-Admission Testing [facility] [address] [facility] 2[address] [facility] [address] [place] [address] Ginny White PA Pre-op evaluation (Primary Dx); Gastroesophageal reflux disease with esophagitis without hemorrhage; Hypoparathyroidism after procedure; Tachycardia, paroxysmal (HCC); Cervical stenosis of spine; Hemochromatosis, unspecified hemochromatosis type; History of asthma; Mitral valve prolapse; Complication of anesthesia, initial encounter; Prediabetes 02/02/2025 9:00 AM EDT Office Visit [facility] [address] [phone] Alonzo Root MD Dysphonia (Primary Dx); Cervical disc disorder; Muscle tension dysphonia 01/27/2025 9:00 AM EDT Consult [facility] Neurosurgery [address] [place] [address] Makayla Campos MD Cervical disc disorder with radiculopathy (Primary Dx) 01/27/2025 Scanned Document [facility]surgery [address] [place] [address] Makayla Campos MD 01/24/2025 7:30 PM EDT - 01/25/2025 3:33 PM EDT Hospital Encounter [facility] Emergency Department [address] [place] [address] Jaswinder Valentine MD Alkasir, Amr, MD Khan, Sana, MD Cervical stenosis of spine (Primary Dx); Cervical stenosis of spinal canal; Chest pain Discharge Disposition: Home or Self Care 01/22/2025 11:20 AM EDT Ancillary Procedure [facility] [address] [place] [address] Provider, File Room 01/22/2025 Scanned Document [facility] [id number] [address] [facility] [address] [place] [address] Makayla Campos MD from Last 3 Months Family History Medical History Relation Name Comments Autoimmune disease Father Lane Ilcerativ e colitis Blood Clots Father Lane Cancer Mother Shante Multiple myelom a Clotting disorder Paternal Uncle 1 Uncle tiago Factor V clotting disorder Factor V Leiden deficiency Paternal Uncle 2 Asthma Sister Shu Heart disease Sister Shu Aortic valve r eplacement from congential aortic stenosis and 2 aortic arrtery anyurisms repaied has turners syndrome Relation Name Status Comments Father Lane Alive Mother Shante Alive Paternal Uncle 1 Uncle tiago Alive Paternal Uncle 2 Sister Shu Alive Social History Tobacco Use Types Packs/Day Years Used Date Smoking Tobacco: Never Passive Smoke Exposure: Never Smokeless Tobacco: Never Tobacco Cessation:Counseling Given: [...] any time in the past 12 [facility], were you homeless or living in a longterm (including now)? No 02/05/2025 [facility] Utilities Answer Date Recorded In the past 12 months has [facility] electric, gas, oil, or water company threatened [...] Sign Reading Time Taken Comments Blood Pressure 104/57 02/07/2025 5:00 AM EDT Pulse 66 02/07/2025 5:00 AM EDT Temperature 36.6 C (97.8 F) 02/07/2025 5:00 AM EDT Respiratory Rate 18 02/07/2025 5:00 AM EDT Oxygen Saturation 98% 02/07/2025 9:24 AM EDT Inhaled Oxygen Concentration - - Weight 66.2 kg (146 lb) 03/05/2025 9:34 AM EST Height 160 cm (5' 3 ) 03/05/2025 9:34 AM EST Body Mass Index 25.86 03/05/2025 9:34 AM EST Plan of Treatment Upcoming Encounters Date Type Department Care Team (Late st Contact Info) Description 03/31/2025 9:00 AM EST Treatment [address] [phone] Leatha Mc PA [address] [place] [address] [address] [place], [place] [phone] Zeina Messer [facility]-INFORMATION CLERK CASHIER [address] [place] [address] 03/31/2025 10:00 AM EST Office Visit [facility] [place] [address] [facility] [address] [place] [phone] Samara Mendoza PA-C [address] [place] [phone] Health Maintenance Due Date Last Done Comments Hepatitis C Virus Screening 1976 HIV Screening 1989 DTaP/Tdap/Td Vaccines (1 - Tdap) 09/14/1995 Hepatitis B Vaccines (1 of 3 - 19+ 3-dose series) 09/14/1995 Pneumococcal Vaccine: Pediat bala (0-5 Years) and At-Risk Patients (6 to 49 Years) (1 of 2 - PCV) 09/14/1995 Pap Smear (Ages 21-65) 1997 Mammogram 2016 Colonoscopy 2021 COVID-19 Vaccine Completed 01/05/2025, 12/2023, 01/27/2023, Additional history exists Influenza Vaccine Completed 01/22/2025, , 01/22/2025, Additional history exists Goals Goal Patient Goal Type Associated Problems Recent Progress Patient-Stated? Author ST LTG 1 Speech Therapy No Zeina Messer CCC-INFORMATION CLERK CASHIER Note: Pt will tolerate least restrictive diet without s/s aspiration. ST STG 1 Speech Therapy No Zeina Messer CCC-INFORMATION CLERK CASHIER Note: Pt will complete an instrumental swallowing evaluation within 2 weeks. Additional goals to be set as indicated. Medical Devices Implanted Type Area Shaker Out Device Identifier Shelf Expiration Date Model / Serial / Lot [id number] Plate Spine 37.5mm Bone Valentina Vs Elite - [id number] Implanted:Qty : 1 on 02/05/2025 by Makayla Campos MD at [facility] Plate N/A: Spine Cervical [employer] MINIMALLY INVASIVE T [id number] / / [id number] Screw Bone Spine Cervical Anterior [place] 14mm Ti 4mm - [id number] Implanted:Qty : 4 on 02/05/2025 by Makayla Cmapos MD at [facility] Spine N/A: Spine Cervical [employer] MINIMALLY INVASIVE T [id number] / / [id number] Screw Bone Spine Cervical Anterior [place] 13mm Ti 4mm - [id number] Implanted:Qty : 2 on 02/05/2025 by Makayla Campos MD at [facility] Spine N/A: Spine Cervical [employer] MINIMALLY INVASIVE T [id number] / / [id number] Aalograft Spacer [id number] - [id number] Implanted:Qty : 1 on 02/05/2025 by Makayla Campos MD at [facility] Tissue N/A: Spine Cervical [employer] 06/02/2027 [id number] / [id number] / [id number] Graft Bone Crstn Asr Lrdtc Canc Aureliano Algrf Spcr [id number] - [id number] Implanted:Qty : 1 on 02/05/2025 by Makayla Campos MD at [facility] Tissue N/A: Spine Cervical [employer] MINIMALLY INVASIVE T 05/25/2027 [id number] / [id number] / [id number] Procedures Procedure Name Priority Date/Time Associated Diagnosis Comments XR LUMBAR SPINE COMPLETE W/BENDING 6+ VIEWS Routine 03/12/2025 4:25 PM EST Lumbar radiculopathy FL MODIFIED BARIUM SWALLOW W/SPEECH Routine 02/26/2025 8:56 AM EST Dysphagia, unspecified type S/P cervical spinal fusion XR CERVICAL SPINE 4 OR 5 VIEWS Routine 02/25/2025 2:23 PM EST S/P cervical spinal fusion Cervical disc disorder with radiculopathy CT HEAD ARCHIVE FOR REFERENCE ONLY Routine 02/19/2025 11:33 AM EDT MR HEAD ARCHIVE FOR REFERENCE ONLY Routine 02/19/2025 11:[address] HEAD ARCHIVE FOR REFERENCE ONLY Routine 02/19/2025 11:32 AM EDT XR CHEST 1 VIEW-PORTABLE Routine 02/06/2025 6:08 PM EDT XR CERVICAL SPINE 2 OR 3 VIEWS Routine 02/05/2025 9:46 PM EDT XR OR FLUORO <=1 HR (HH) Routine 02/05/2025 11:05 AM EDT XR CERVICAL SPINE 2 OR 3 VIEWS Routine 02/05/2025 11:05 AM EDT XR CERVICAL SPINE 2 OR 3 VIEWS STAT 02/05/2025 11:05 AM EDT LINE - PERIPHERAL Routine 02/05/2025 9:0 5 AM EDT ANES INTUBATION Routine 02/05/2025 9:05 AM EDT MS ARTHRD ANT INTERBODY DECOMPRESS CERVICAL BELW C2 02/05/2025 7:43 AM EDT Cervical disc prolapse with radiculopathy Special Needs *8:15 startLATEX ALLERGYC-ARM, [employer] [place]LANTIS/CORNERSTONE, NUVASIVE: SSEP, EMG, EMBER, SUPINE, MIDAS DRILL W/ MATCHSTICK, DELUCA BIPOLARS AVAILABLE, TRIMLINE RETRACTORS W/ FIXED HANDLE, CASPAR PINS W/ RETRACTORS, CODMAN CURETTES, 3-0 VICRYL SH, 4-0 MONOCRYL PS2, LIQUID SKIN ADHESIVE, HEADLIGHT, GEIGER STAND/C-ARM COVER, SURGIFLO W/ 14 GAUGE ANGIOCATH, FOLDED SHEET UNDER SHOULDERS, SUTURE: 3-0 VICRYL, 4-0 MONOCRYL, DERMABOND, UMBILICAL TAPE/3 POUND WEIGHT AVAILABLE, POST OP: BJI POCT , URINE (CHARGE) Routine 02/05/2025 6:48 AM EDT TYPE AND SCREEN Routine 02/05/2025 6:34 AM EDT TYPE AND SCREEN Routine 02/02/2025 11:39 AM EDT Pre-op evaluation TRANSFERRIN Routine 02/02/2025 11:39 AM EDT Pre-op evaluation PROTIME-INR Routine 02/02/2025 11:39 AM EDT Pre-op evaluation PARTIAL THROMBOPLASTIN TIME (PTT) Routine 02/02/2025 11:39 AM EDT Pre-op evaluation PREALBUMIN Routine 02/02/2025 11:39 AM EDT Pre-op evaluation HEMOGLOBIN A1C WITH ESTIMATED AVERAGE GLUCOSE Routine 02/02/2025 11:39 AM EDT Pre-op evaluation NASAL MRSA SCREEN, PCR Routine 02/02/2025 11:39 AM EDT Pre-op evaluation LAB RESULT 02/01/2025 XR CERVICAL SPINE W/FLEX+EXT 6+ VIEWS Routine 01/26/2025 3:01 PM EDT Cervical disc disorder with radiculopathy HIGH SENSITIVITY TROPONIN T CARD 01/25/2025 3:31 AM EDT ECG 12-LEAD STAT 01/25/2025 2:58 AM EDT MAGNESIUM CARD 01/24/2025 11:49 PM EDT HIGH SENSITIVITY TROPONIN T CARD 01/24/2025 11:49 PM EDT HIGH SENSITIVITY TROPONIN T CARD 01/24/2025 10:59 PM EDT MRI CERVICAL SPINE W/O CONTRAST STAT 01/24/2025 10:41 PM EDT MRI BRAIN W/O CONTRAST STAT 01/24/2025 10:41 PM EDT COMPREHENSIVE METABOLIC PANEL STAT 01/24/2025 8:06 PM EDT COMPLETE BLOOD COUNT, WITH DIFFERENTIAL STAT 01/24/2025 8:06 PM EDT HIGH SENSITIVITY TROPONIN T CARD 01/24/2025 8:06 PM EDT ECG 12-LEAD Routine 01/24/2025 7:20 PM EDT MR SPINE ARCHIVE FOR REFERENCE ONLY Routine 01/22/2025 11:15 AM EDT from Last 3 Months Results * XR Lumbar spine complete w/bending 6+ views (03/12/2025 4:25 PM EST) Anatomical Region Laterality Modality L-spine Computed Radiogr aphy 03/12/2025 4:00 PM EST 03/12/2025 4:00 PM EST Impressions 03/17/2025 3:47 PM EST Mild lumbar levoscoliosis. Discogenic degenerative changes at L5-S1. No change or instability with flexion or extension. Electronically signed by: Minh Nayak MD 03/17/2025 03:47 PM EST Thank you for referring your patient to us, Minh Nayak MD [phone] (Electronically Signed - 03/17/2025 15:47) Copy: ROSALIND VIZCARRA NP [facility] [address] [place] [address] Narrative 03/17/2025 3:47 PM EST EXAMINATION: XR LUMBAR SPINE CLINICAL INFORMATION: Radiculopathy, lumbar region. Patient states low back pain and right leg numbness, denies trauma or surgery. COMPARISON: X-ray lumbar spine 07/27/2024. TECHNIQUE: AP and lateral views of the lumbar spine and Lima and lateral views of the lumbosacral junction. FINDINGS: Mild lumbar levoscoliosis. Discogenic degenerative changes at L5-S1. No change or instability with flexion or extension. Procedure Note Minh Nayak MD - 03/17/2025 EXAMINATION: XR LUMBAR SPINE CLINICAL INFORMATION: Radiculopathy, lumbar region. Patient states low back pain and right legnumbness, denies trauma or surgery. COMPARISON: X-ray lumbar spine 07/27/2024. TECHNIQUE: AP and lateral views of the lumbar spine and Lima and lateral views ofthe lumbosacral junction. FINDINGS: Mild lumbar levoscoliosis. Discogenic degenerative changes at L5-S1. Nochange or instability with flexion or extension. IMPRESSION: Mild lumbar levoscoliosis. Discogenic degenerative changes at L5-S1. Nochange or instability with flexion or extension. Electronically signed by: Minh Nayak MD 03/17/2025 03:47 PM EST RPWorkstation: [id number] Thank you for referring your patient to us, Minh Nayak MD [phone] (Electronically Signed - 03/17/2025 15:47) Copy: ROSALIND VIZCARRA NP [facility] [address] [facility] [id number] us Leatha MOSS IMG DIAGNOSTIC IMAGING ORDERAB LES Final Result * FL Modified barium swallow w/speech (02/26/2025 8:56 AM EST) Anatomical Region Laterality Modality Radio Fluoroscop y 02/26/2025 8:21 AM EST Impressions 02/26/2025 4:44 PM EST 1. No aspiration or penetration with tested consistencies. 2. Please see speech language therapist's note for further details. Interpreted by: Manuel Shabazz MD [employer] Operator I personally reviewed the images and the resident's preliminary report and AGREE with the report as it is now presented ([email or web address]). Narrative 02/26/2025 4:44 PM EST EXAMINATION: FL MODIFIED BARIUM SWALLOW CLINICAL INFORMATION: Pharyngeal dysphagia, status post cervical spinal fusion COMPARISON: Cervical spine radiograph 02/05/2025 TECHNIQUE: The examination was performed with the speech pathologist present. The patient took several consistencies of barium. FLUOROSCOPY TIME: 1.9 minutes DAP: 40.793 dGy-cm2 FINDINGS: No pharyngeal or cricopharyngeal abnormalities were noted. Moderate spondylitic changes of the cervical spine with anterior fusion hardware from C4-C6. Surgical clips project over soft tissues anterior to the spinal fusion hardware. No aspiration or penetration with tested consistencies. Procedure Note Efrain Lind DO - 02/26/2025 EXAMINATION: FL MODIFIED BARIUM SWALLOW CLINICAL INFORMATION: Pharyngeal dysphagia, status post cervical spinal fusion COMPARISON: Cervical spine radiograph 02/05/2025 TECHNIQUE: The examination was performed with the speech pathologist present. The patient took several consistencies of barium. FLUOROSCOPY TIME: 1.9 minutes DAP: 40.793 dGy-cm2 FINDINGS: No pharyngeal or cricopharyngeal abnormalities were noted. Moderate spondylitic changes of the cervical spine with anterior fusion hardware from C4-C6. Surgical clips project over soft tissues anterior to the spinal fusion hardware. No aspiration or penetration with tested consistencies. IMPRESSION: 1. No aspiration or penetration with tested consistencies. 2. Please see speech language therapist's note for further details. Interpreted by: Manuel Shabazz MD [employer] Operator I personally reviewed the images and the resident's preliminary report and AGREE with the report as it is now presented ([email or web address]). us Samara Mendoza PA-C IMG FLUOROSCOPY ORDERABLES Fi nal Result * XR Cervical spine 4 or 5 views (02/25/2025 2:23 PM EST) Anatomical Region Laterality Modality C-spine Computed Radiogr aphy 02/25/2025 2:00 PM EST 02/25/2025 2:00 PM EST Impressions 03/01/2025 5:56 PM EST Postoperative changes in good position. Electronically signed by: Juan Moran MD 03/01/2025 05:56 PM EST Thank you for referring your patient to us, Juan Moran MD [phone] (Electronically Signed - 03/01/2025 17:56) Copy: MAKAYLA CAMPOS [facility]- [facility]- [place] [address] [facility] [address] [place] [address] ROSALIND VIZCARRA [facility] [address] [place] [address] PATIENT , Narrative 03/01/2025 5:56 PM EST EXAMINATION: XR CERVICAL SPINE CLINICAL INFORMATION: postop ACDF - check hardware COMPARISON: February 05, 2025 TECHNIQUE: 4 views of the cervical spine were performed. Anterior surgery is seen extending from C4 through C6 with plate and screws. Disc spacers are seen at these levels. Positioning appears good. There is no malalignment. Mild osteoarthropathy is seen of the facets of the cervical spine. There is a minimal subluxation with C2 anterior to C3 by 1 to 2 mm. This is unchanged. On flexion and extension lateral views no instability is seen. Procedure Note Juan Moran MD - 03/01/2025 EXAMINATION: XR CERVICAL SPINE CLINICAL INFORMATION: postop ACDF - check hardware COMPARISON: February 05, 2025 TECHNIQUE: 4 views of the cervical spine were performed. Anterior surgery is seenextending from C4 through C6 with plate and screws. Disc spacers are seenat these levels. Positioning appears good. There is no malalignment. Mild osteoarthropathy is seen of the facets of the cervical spine. Thereis a minimal subluxation with C2 anterior to C3 by 1 to 2 mm. This isunchanged. On flexion and extension lateral views no instability isseen. IMPRESSION: Postoperative changes in good position. Electronically signed by: Juan Moran MD 03/01/2025 05:56 PM EST RPWorkstation: [id number] Thank you for referring your patient to us, Juan Moran MD [phone] (Electronically Signed - 03/01/2025 17:56) Copy: MAKAYLA CAMPOS [facility]- NEUROSURGERY- [place] [address] [place] [address] ROSALIND VIZCARRA [facility] [address] [place] [address] PATIENT , us Leatha MOSS IMG DIAGNOSTIC IMAGING ORDERAB LES Final Result * CT Head Archive for Reference Only (02/19/2025 11:33 AM EDT) Only the most recent of2 resultswithin the time period is included. Narrative RAHCEL - 02/19/2025 11:33 AM EDT This study has been auto finalized and does not contain a result. us File Room Provider IMG DIGITIZE FILMS Final Resu lt RACHEL [phone] * MR Head Archive for Reference Only (02/19/2025 11:32 AM EDT) Narrative RACHEL - 02/19/2025 11:32 AM EDT This study has been auto finalized and does not contain a result. us File Room Provider IMG DIGITIZE FILMS Final Resu lt RACHEL [phone] * XR Chest 1 view-Portable (02/06/2025 6:08 PM EDT) Anatomical Region Laterality Modality Chest Computed Radiogr aphy 02/06/2025 5:27 PM EDT Impressions 02/09/2025 10:54 AM EDT No acute cardiopulmonary findings. Narrative 02/09/2025 10:54 AM EDT EXAMINATION: XR CHEST CLINICAL INFORMATION: Phlegm. Difficulty with secretions. Cough. COMPARISON: None available. TECHNIQUE: Frontal view of the chest was obtained. FINDINGS: The lungs are clear. The cardiomediastinal silhouette is normal in size. There is no pleural effusion or pneumothorax. No acute osseous abnormality. Procedure Note Armen Mckeon MD - 02/09/2025 EXAMINATION: XR CHEST CLINICAL INFORMATION: Phlegm. Difficulty with secretions. Cough. COMPARISON: None available. TECHNIQUE: Frontal view of the chest was obtained. FINDINGS: The lungs are clear. The cardiomediastinal silhouette is normal in size. There is no pleural effusion or pneumothorax. No acute osseous abnormality. IMPRESSION: No acute cardiopulmonary findings. Rosalind Stephens PA-C [facility] DIAGNOSTIC IMAGING OR DERABLES Final Result * XR Cervical spine 2 or 3 views (02/05/2025 9:46 PM EDT) Only the most recent of3 resultswithin the time period is included. Anatomical Region Laterality Modality C-spine Computed Radiogr aphy 02/05/2025 9:37 PM EDT Impressions 02/09/2025 11:21 AM EDT 1. Anterior stabilization and intervertebral disc hardware at C4 through C6 without evidence of complication. 2. Mild degenerative disc disease at C6-C7, unchanged. Narrative 02/09/2025 11:21 AM EDT EXAMINATION: XR CERVICAL SPINE CLINICAL INFORMATION: Postop cervical fusion. COMPARISON: Cervical spine radiographs dated 01/26/2025. TECHNIQUE: AP and lateral views of the cervical spine. FINDINGS: Anterior stabilization and intervertebral disc hardware at C4 through C6. No hardware fracture. Overlying soft tissue swelling and air consistent with postsurgical change. No radiopaque foreign body. Surgical clips redemonstrated within the thyroid bed. No acute osseous fracture. Normal vertebral body alignment. Mild degenerative disc disease at C6-C7, unchanged. Mild multilevel bilateral facet arthropathy is redemonstrated. Procedure Note Armen Mckeon MD - 02/09/2025 EXAMINATION: XR CERVICAL SPINE CLINICAL INFORMATION: Postop cervical fusion. COMPARISON: Cervical spine radiographs dated 01/26/2025. TECHNIQUE: AP and lateral views of the cervical spine. FINDINGS: Anterior stabilization and intervertebral disc hardware at C4 through C6. No hardware fracture. Overlying soft tissue swelling and air consistent with postsurgical change. No radiopaque foreign body. Surgical clips redemonstrated within the thyroid bed. No acute osseous fracture. Normal vertebral body alignment. Mild degenerative disc disease at C6-C7, unchanged. Mild multilevel bilateral facet arthropathy is redemonstrated. IMPRESSION: 1. Anterior stabilization and intervertebral disc hardware at C4 through C6 without evidence of complication. 2. Mild degenerative disc disease at C6-C7, unchanged. Leatha MOSS IMG DIAGNOSTIC IMAGING ORDERAB LES Final Result * XR OR FLUORO <=1HR () (02/05/2025 11:05 AM EDT) Anatomical Region Laterality Modality Computed Radiogr aphy 02/05/2025 8:39 AM EDT Impressions 02/05/2025 8:50 PM EDT Above findings were discussed with Dr. Campos on 02/05/2025 at 10:50 AM. Narrative 02/05/2025 8:50 PM EDT EXAMINATION: XR CERVICAL SPINE CLINICAL INFORMATION: ACDF 4-6 COMPARISON: Cervical spine radiograph 01/26/2025. TECHNIQUE: Multiple intraoperative views of the cervical spine. FINDINGS: Series of images demonstrate progressive surgical planning. The final set of images demonstrate postsurgical changes related to anterior cervical discectomy and fusion at C4-C6. The surgical hardware is adequately aligned and appears intact. Procedure Note Capo Constantino MD - 02/05/2025 EXAMINATION: XR CERVICAL SPINE CLINICAL INFORMATION: ACDF 4-6 COMPARISON: Cervical spine radiograph 01/26/2025. TECHNIQUE: Multiple intraoperative views of the cervical spine. FINDINGS: Series of images demonstrate progressive surgical planning. The final set of images demonstrate postsurgical changes related to anterior cervical discectomy and fusion at C4-C6. The surgical hardware is adequately aligned and appears intact. IMPRESSION: Above findings were discussed with Dr. Campos on 02/05/2025 at 10:50 AM. Makayla Campos MD IMG FLUOROSCOPY ORDERABLES Final Result * Peripheral Line (02/05/2025 9:05 AM EDT) Conrad Kraft MD - 02/05/2025 9:05 AM EDT Conrad Jiang MD 02/05/2025 9:28 AM Anesthesia Procedure Note - Peripheral IV Placement Patient Name: Camryn Quach : 1975 Patient location: OR Indication(s): surgery Performed by: MD Guadalupe Lucas SRNA Procedure Preparation Skin prep: skin prepped with alcohol - completely dried prior to procedure Hand hygeine performed prior to needle/catheter insertion Sterile barriers in place: cap, gloves and mask Patient pre-procedure mental status: awake 20 G, 1 in length, in right hand Insertion attempts: 1 Conrad Jiang MD MS ANESTHESIA Final Result * ANES INTUBATION (02/05/2025 9:05 AM EDT) Conrad Kraft MD - 02/05/2025 9:05 AM EDT Conrad Jiang MD 02/05/2025 9:28 AM Anesthesia Procedure Note - Intubation Patient Name: Camryn Quach : 1975 Patient location: OR Procedure indications: airway protection Procedure diagnosis: Anesthesia Performed by: MD Guadalupe Lucas SRNA Chart Verification ID band applied and present Patient ID verified via arm band, verbally with patient. Airway: airway not difficult Preanesthetic Checklist monitors and equipment checked. Patient's pre-procedure mental status: awake The patient was sedated prior to procedure. Current level of sedation: general anesthesia Airway not difficult - NPO status: > 8 hours Procedure Details Intubation route: oral Intubation method: direct laryngoscopy Mac 3 Number of attempts: 1 Patient status for intubation: unresponsive, paralyzed and sedated Patient position: supine Preoxygenation: BVM Quality of BVM: easy Tube size: 7.0 mm Tube: standard - cuffed and cuff inflated Cricoid pressure not applied or not required Cord visualization: Grade I Placement confirmation method: chest rise and ETCO2 monitor Breath sounds: equal bilaterally ETT to lip: 21 cm Dentition: same as baseline Complications: no complications us Conrad Jiang MD MS ANESTHESIA Final Result * POCT , Urine (02/05/2025 6:48 AM EDT) Preg Test, Ur Negative Negative Lot Number [id number] Clam Shucker Pass Pass Urine 02/05/2025 6:48 AM EDT us Conrad Jiang MD POINT OF CARE TEST ORD ERABLES Final Result * Type and Screen (02/05/2025 6:34 AM EDT) Only the most recent of2 resultswithin the time period is included. ABO/Rh A NEGATIVE 02/05/2025 8:37 AM EDT [facility] Antibody Screen NEGATIVE 8:37 AM EDT [facility] Specimen Expiration 02/08/2025 02/05/2025 8:37 AM EDT [facility] Blood Blood specimen / Unknown 02/05/2025 6:34 AM EDT 02/05/2025 7:26 AM EDT Lambert MOSS BLOOD BANK TEST ORDERABLES Final Result [address] [address], [address] [address] * (ABNORMAL) Hemoglobin A1c with Estimated Average Glucose (02/02/2025 11:39 AM EDT) Hemoglobin A1C 5.7(H) <5.7 % 02/03/2025 4:30 AM EDT [facility] Comment: A1c% Interpretation 5.7 - 6.0 Increase risk of diabetes 6.1 - 6.4 Higher risk of diabetes > or = 6.5 Consistent with diabetes Diabetes Care, 33(Supp 1):S1-S61, 2010 Estimated Average Glucose 117 mg/dL 02/03/2025 4:30 AM EDT [facility] Blood Blood specimen / Unknown 02/02/2025 11:39 AM EDT 02/02/2025 8:26 PM EDT us Ginny Otoo PA LAB BLOOD ORDERABLES Final Resul t Performing Organization Address City/[facility]/[place] [address], [place] [address] * MRSA PCR Screen, Qualitative: (02/02/2025 11:39 AM EDT) MRSA Result Not Detected Not Detected 10:27 PM EDT [facility] Comment:Performed by the Xpe rt MRSA NxG Assay Swab, Anterior Nares Specimen from nose / Unknown 02/02/2025 11:39 AM EDT 02/02/2025 8:25 PM EDT us Ginny Otoo PA MICROBIOLOGY - GENERAL ORDERABLE S Final Result Performing Organization Address [facility]/[place] [address], [place] [address] * Partial Thromboplastin Time (PTT) (02/02/2025 11:39 AM EDT) Anticoagulant Information not given 02/02/2025 10:32 AM EDT [facility] Partial Thromboplastin Time (PTT) 25 25 - 36 seconds 02/02/2025 8:44 PM EDT [facility] Blood Blood specimen / Unknown 02/02/2025 11:39 AM EDT 02/02/2025 8:26 PM EDT us Ginny Otoo PA LAB BLOOD ORDERABLES Final Resul t Performing Organization Address [facility] Co de Phone Number [address] [address], [address] [address] * Protime-INR (02/02/2025 11:39 AM EDT) Anticoagulant Information not given 02/02/2025 10:32 AM EDT [facility] Prothrombin Time (PT) 10.8 10.0 - 13.5 seconds 02/02/2025 8:44 PM EDT [facility] INR 0.9 02/02/2025 8:44 PM EDT [facility] Comment:INR Therapeutic Rang es: Standard dose anticoagulant 2.0 to 3.0, High dose anticoagulant 2.5-3.5. Blood Blood specimen / Unknown 02/02/2025 11:39 AM EDT 02/02/2025 8:26 PM EDT us Ginny Otoo PA LAB BLOOD ORDERABLES Final Resul t Performing Organization Address [facility] Co de Phone Number [address] [address], [address] [address] * Transferrin (02/02/2025 11:39 AM EDT) Transferrin 209 200 - 360 mg/dL 02/02/2025 8:50 PM EDT [facility] Blood Blood specimen / Unknown 02/02/2025 11:39 AM EDT 02/02/2025 8:26 PM EDT us Ginny Otoo PA LAB BLOOD ORDERABLES Final Resul t Performing Organization Address City/[facility] Co de Phone Number [address] [address], [address] [address] * Prealbumin (02/02/2025 11:39 AM EDT) Prealbumin 33 20 - 40 mg/dL 02/02/2025 8:50 PM EDT [facility] Blood Blood specimen / Unknown 02/02/2025 11:39 AM EDT 02/02/2025 8:26 PM EDT us Ginny Christopher PA LAB BLOOD ORDERABLES Final Resul t [address] [address], [address] [address] * LAB RESULT (02/01/2025) us Scan Primary Care HX AMB PROCEDURES Final Result * XR Cervical spine w/flex+ext 6+ views (01/26/2025 3:01 PM EDT) Anatomical Region Laterality Modality C-spine Computed Radiogr aphy 01/26/2025 3:30 PM EDT 01/26/2025 3:30 PM EDT Impressions 02/05/2025 4:09 PM EDT Unremarkable examination. Electronically signed by: Minh Nayak MD 02/05/2025 04:09 PM EDT Workstation: [id number] Thank you for referring your patient to us, Minh Nayak MD [phone] (Electronically Signed - 02/05/2025 16:09) Copy: ROSALIND VIZCARRA DICTATING MACHINE TRANSCRIBER [facility] [address] [facility] [place] [address] Narrative 02/05/2025 4:09 PM EDT EXAMINATION: XR CERVICAL SPINE CLINICAL INFORMATION: Cervical disc disorder with radiculopathy, unspecified cervical region. Patient states limited mobility right arm, neck pain. COMPARISON: X-ray cervical spine 07/27/2024. TECHNIQUE: AP, lateral (flexion, extension and neutral), both oblique, and open mouth odontoid views of the cervical spine. FINDINGS: Vertebral alignment is normal without spondylolisthesis. Vertebral body heights are normal. No fractures are evident. Intervertebral disc heights are well-preserved. Facet joints are unremarkable. No osseous neural foraminal encroachment. Prevertebral soft tissues are normal. Procedure Note Minh Nayak MD - 02/05/2025 EXAMINATION: XR CERVICAL SPINE CLINICAL INFORMATION: Cervical disc disorder with radiculopathy, unspecified cervical region.Patient states limited mobility right arm, neck pain. COMPARISON: X-ray cervical spine 07/27/2024. TECHNIQUE: AP, lateral (flexion, extension and neutral), both oblique, and open mouthodontoid views of the cervical spine. FINDINGS: Vertebral alignment is normal without spondylolisthesis. Vertebral bodyheights are normal. No fractures are evident. Intervertebral disc heights are well-preserved. Facet joints areunremarkable. No osseous neural foraminal encroachment. Prevertebral soft tissues are normal. IMPRESSION: Unremarkable examination. Electronically signed by: Minh Nayak MD 02/05/2025 04:09 PM EDT RPWorkstation: [id number] Thank you for referring your patient to us, Minh Nayak MD [phone] (Electronically Signed - 02/05/2025 16:09) Copy: ROSALIND VIZCARRA DICTATING MACHINE TRANSCRIBER [address] [place] [address] us Makayla Campos MD [facility] DIAGNOSTIC IMAGING ORDOrtega VALLES Final Result * (ABNORMAL) High Sensitivity Troponin T (Once) (01/25/2025 3:31 AM EDT) Only the most recent of4 resultswithin the time period is included. High Sensitivity Troponin T 38(H) <15 ng/L 01/25/2025 4:07 AM EDT [facility] Delta (Change) 13(H) <3 01/25/2025 4:07 AM EDT [facility] Comment:Decreased Blood Blood specimen / Unknown 01/25/2025 3:31 AM EDT 01/25/2025 3:35 AM EDT us Zaira Stewart MD LAB BLOOD ORDERABLES Final Resul t Performing Organization Address City/[facility] Co de Phone Number [address] [address], [facility] [address] [place] [address] * ECG 12 lead (01/25/2025 2:58 AM EDT) Only the most recent of2 resultswithin the time period is included. Ventricular rate 99 BPM EKG [facility] Atrial rate 99 BPM EKG [facility] P-R interval 182 ms EKG [facility] QRS duration 88 ms EKG [facility] Q-T interval 344 ms EKG [facility] QTC calculation (Bazett) 442 ms EKG [facility] P axis 60 degrees EKG [facility] R axis -52 degrees EKG [facility] T axis 30 degrees EKG [facility] 01/25/2025 2:58 AM EDT Narrative EKG [facility] - 01/25/2025 12:02 PM EDT Normal sinus [...] Forte Eric ([id number]) on 01/25/2025 12:02:53 PM us Jaswinder Valentine MD ECG ORDERABLES Final Result Performing Organization Address City/[facility]/ZIP Co de Phone Number EKG [facility] * Magnesium (01/24/2025 11:49 PM EDT) Magnesium 2.1 1.6 - 2.7 mg/dL 01/25/2025 2:44 AM EDT [facility] 01/24/2025 11:4 9 PM EDT 01/25/2025 12:01 AM EDT us Jaswinder Valentine MD LAB BLOOD ORDERABLES Final Res ult Performing Organization Address [facility] Co de Phone Number [address] [address], [address] [address] * MRI Cervical spine w/o contrast (01/24/2025 10:41 PM EDT) Anatomical Region Laterality Modality C-spine Magnetic Resonan ce 01/24/2025 9:42 PM EDT Addenda Addendum by Capo Constantino MD on 01/26/2025 8:50 AM EDT ADDENDUM #1 Results Acknowledgement: This was communicated to Dr. Jaswinder Valentine by a physician whanau support worker at 11:25 PM on 01/24/2025. Impressions 01/24/2025 [...] right foraminal stenosis. us Jaswinder Valentine MD G MRI ORDERABLES Edited Resu lt - Final * MRI Brain w/o contrast (01/24/2025 10:41 PM EDT) Anatomical Region Laterality Modality Head Magnetic Resonan ce 01/24/2025 9:43 PM EDT Addenda Addendum by Capo Constantino MD on 01/26/2025 8:50 AM EDT ADDENDUM #1 Results Acknowledgement: This was communicated to Dr. Jaswinder Valentine by a physician whanau support worker at 11:25 PM on 01/24/2025. Impressions 01/24/2025 [...] Blood Count, with Differential (01/24/2025 8:06 PM T) White Blood Cell Count 9.3 4.0 - 11.0 Thou/uL 01/24/2025 9:07 PM [facility] Platelet Count 364 150 - 450 Thou/uL 01/24/2025 9:07 PM [facility] Hemoglobin 15.2 11.7 - 15.7 g/dL 01/24/2025 9:07 PM [facility] Hematocrit 45.1 35.0 - 47.0 % 01/24/2025 9:07 PM [facility] Red Blood Cell Count 5.10 4.00 - 5.40 Mil/uL 01/24/2025 9:07 PM [facility] MCV 88 80 - 100 fL 01/24/2025 9:07 PM [facility] MCH 29.8 26.0 - 34.0 pg 01/24/2025 9:07 PM [facility] MCHC 33.7 30.0 - 36.0 g/dL 01/24/2025 9:07 PM [facility] RDW 14.1 11.5 - 14.5 % 01/24/2025 9:07 PM [facility] MPV 10.0 7.5 - 12.5 fL 01/24/2025 9:07 PM [facility] Neutrophils Auto 65.3 % 01/25/20 9:07 PM [facility] Immature Granulocytes 1.0 % 01/24/2025 9:07 PM [facility] Lymphocytes Auto 24.4 % 01/25/20 9:07 PM [facility] Monocytes Auto 7.8 % 01/24/2025 9:07 PM EDT [facility] Eosinophils Auto 0.6 % 01/25/20 9:07 PM EDT [facility] Basophils Auto 0.9 % 01/24/2025 9:07 PM EDT [facility] Abs Neutrophils Auto 6.04 2.00 - 7.50 Thou/uL 01/24/2025 9:07 PM EDT [facility] Abs Immature Granulocytes 0.09 0.00 - 0.10 Thou/uL 01/24/2025 9:07 PM EDT [facility] Abs Lymphocytes Auto 2.26 1.50 - 4.50 Thou/uL 01/24/2025 9:07 PM EDT [facility] Abs Monocytes Auto 0.72 0.20 - 1.50 Thou/uL 01/24/2025 9:07 PM EDT [facility] Abs Eosinophils Auto 0.06 0.00 - 0.70 Thou/uL 01/24/2025 9:07 PM EDT [facility] Abs Basophils Auto 0.08 0.00 - 0.20 Thou/uL 01/24/2025 9:07 PM EDT [facility] Blood Blood specimen / Unknown 01/24/2025 8:06 PM EDT 01/24/2025 8:57 PM EDT us Jaswinder Valentine MD LAB [place]LOOD [place] [address], [place] [address] * (ABNORMAL) Comprehensive Metabolic Panel (01/24/2025 8:06 PM EDT) Glucose 101(H) 65 - 99 mg/dL 01/24/2025 9:59 PM EDT [facility] Comment:Fasting: <100 mg/dL, Non-Fasting: <200 mg/dL (ADA 2005) Blood Urea Nitrogen (BUN) 23(H) 8 - 21 mg/dL 01/24/2025 9:59 PM EDT [facility] Creatinine 0.78 0.40 - 1.10 mg/dL 01/24/2025 9:59 PM EDT [facility] eGFR >90 >59 01/24/2025 9:59 PM [facility] Comment:CKD-EPI (2020) in mL /min/1.73 sq meters. Sodium 141 136 - 145 mmol/L 01/24/2025 9:59 PM [facility] Potassium 3.8 3.4 - 5.3 mmol/L 01/24/2025 9:59 PM [facility] Chloride 108(H) 98 - 107 mmol/L 01/24/2025 9:59 PM [facility] CO2 23 22 - 33 mmol/L 01/24/2025 9:59 PM [facility] Calcium 9.3 8.7 - 10.5 mg/dL 01/24/2025 9:59 PM [facility] Alkaline Phosphatase 59 32 - 122 U/L 01/24/2025 9:59 PM [facility] Aspartate Aminotrans (AST) 15 10 - 50 U/L 01/24/2025 9:59 PM [facility] Alanine Aminotrans (ALT) 17 10 - 50 U/L 01/24/2025 9:59 PM [facility] Bilirubin, Total <0.2(L) 0.2 - 1.0 mg/dL 01/24/2025 9:59 PM [facility] Protein, Total 6.6 6.3 - 8.3 g/dL 01/24/2025 9:59 PM [facility] Albumin 4.1 3.5 - 5.0 g/dL 01/24/2025 9:59 PM [facility] BUN/Creatinine Ratio 29(H) 10.0 - 25.0 Ratio 01/24/2025 9:59 PM [facility] Globulin 2.5 1.5 - 3.9 g/dL 01/24/2025 9:59 PM [facility] Albumin/Globulin Ratio 1.6 1.0 - 3.0 Ratio 01/24/2025 9:59 PM [facility] Anion Gap 10 7 - 17 01/24/2025 9:59 PM [facility] Blood Blood specimen / Unknown 01/24/2025 8:06 PM EDT 01/24/2025 8:57 PM EDT us Jaswinder Valentine MD LAB BLOOD ORDERABLES Final Res ult [address] [address], [address] [address] * MR Spine Archive for Reference Only (01/22/2025 11:15 AM EDT) Narrative RACHEL - 01/22/2025 11:15 AM EDT This study has been auto finalized and does not contain a result. us File Room Provider IMG DIGITIZE FILMS Final Resu lt RACHEL [phone] from Last 3 Months Insurance T PPO T PPO Advance Directives * Full Code (Latest Code Status on File) Date Activated Date Inactivated Comments 02/05/2025 1:26 PM * Full Code Date Activated Date Inactivated Comments 02/05/2025 6:33 AM 02/05/2025 1:26 PM * Full Code Date Activated Date Inactivated Comments 01/25/2025 1:00 AM 02/05/2025 6:14 AM * Full Code Date Activated Date Inactivated Comments 03/03/2024 9:09 PM 01/24/2025 7:09 PM * Full Code Date Activated Date Inactivated Comments 03/03/2024 12:17 PM 03/03/2024 9:09 PM Care Teams Occupational Safety And Health Manager Relationship Specialty Start Date End Date Rosalind Vizcarra NP [address] [place] [address] PCP - General Family Medicine 03/03/24 Isis Young RN [address] [place] [address] Nurse Navigator Surgery, Neurosurgery 01/25/25 Makayla Campos MD [address] [address] Surgery, Neurosurgery 02/01/25 Magnus Perez MD [address] [place] [phone] Cardiovascular Disease 02/01/25 System, Provider Not In [address] [place] [phone] Hematology Oncology 02/01/25 Miki Blackwood MD [address] [place] [phone] Endocrinology 02/01/25 Raúl Pike MD [address] [place] [address] [place] [address] Gastroenterology 02/01/25 Jorge Moreno DO [address] [facility] [address] [place] [address] Immunology 02/01/25 Arturo Bunn MD [address] [place] [phone] Otolaryngology 02/01/25 Leatha Mc PA [address] [address] Physician Food Sanitarian Surgery, Neurosurgery 02/05/25
--- OUTSIDE RECORDS SUMMARY | 2025-03-27 11:43 | XMS_ITS | Encounter Summary ---
Author Organization [facility] Address [address] [place] [address] Care Team Providers Care Marine Consultant Name Role Phone Brett Sharma NP Primary Care Provider + [phone] Isis Young RN Unavailable [phone] Tip Campos MD Unavailable [phone] Magnus Perez MD Unavailable System, Provider Not In Unavailable Unavaila Miki Diana MD Unavailable [phone] Raúl Pike MD Unavailable Jorge Moreno DO Unavailable Arturo Bunn MD Unavailable Leatha Mc Unavailable [phone] Encounter Details Date Type Department Care Team (Late st Contact Info) Description 03/04/2024 Scanned Document [facility] Plastic & Reconstructive Surgery [address] [place] [address] Michael Long MD [address] [place] [address] 210 [place] [address] Social History Tobacco Use Types Packs/Day Years [...] 9:00 AM EST Treatment [facility] [address] [address] Leatha Mc PA [address] [place] [address] [phone] Zeina Messer, [facility]-COMPUTER INFORMATION SCIENCE PROFESSOR [address] [place] [address] 03/31/2025 10:00 AM EST Office Visit [facility] Neurosurgery [place] [address] [phone] Samara Mendoza PA-C [address] [place] [phone] documented as of this encounter Visit Diagnoses Not on filedocumented in this encounter Care Teams Marine Consultant Relationship Specialty Start Date End Date Brett Sharma NP [address] [place] [address] PCP - General Family Medicine 03/03/24 Isis Young RN 80 [place] [address] Nurse Navigator Surgery, Neurosurgery 01/25/25 Tip Campos MD [address] [address] Surgery, Neurosurgery 02/01/25 Magnus Perez MD [address] [place] [phone] Cardiovascular Disease 02/01/25 System, Provider Not In [address] [place] [phone] Hematology Oncology 02/01/25 Miki Blackwood MD [address] [place] [address] Endocrinology 02/01/25 Raúl Pike MD [address] [place] [address] Gastroenterology 02/01/25 Jorge Moreno DO [address] [place] [address] Immunology 02/01/25 Arturo Bunn MD [address] [place] [address] Otolaryngology 02/01/25 Leatha Mc PA [address] [address] Physician Student Assistance Counselor Surgery, Neurosurgery 02/05/25 documented as of this encounter
--- OUTSIDE RECORDS SUMMARY | 2025-03-27 11:43 | XMS_ITS | Encounter Summary ---
Author Organization [facility] Address [address] [place] [address] Care Team Providers Care Hole Digger Truck Driver Name Role Phone Brett Sharma NP Primary Care Provider + [phone] Isis Young RN Unavailable Tip Campos MD Unavailable [phone] Magnus Perez MD Unavailable [phone] System, Provider Not In Unavailable Unavaila Miki Diana MD Unavailable [phone] Raúl Pike MD Unavailable Jorge Moreno DO Unavailable [phone] Arturo Bunn MD Unavailable Leatha Mc Unavailable [phone] Encounter Details Date Type Department Care Team (Late st Contact Info) Description 02/24/2025 Scanned Document [facility] Neurosurgery [address] [address] Tip Campos MD [address] [place] [address] Social History Tobacco Use Types Packs/Day [...] time in the past 12 m [facility], were you homeless or living in a longterm (including now)? No 02/05/2025 [facility] Utilities Answer Date Recorded In the [...] Info) Description 03/31/2025 9:00 AM EST Treatment [facility] Yung [address] [place] [address] EMILI Barragan [address] Leatha Mc PA [address] [phone] Zeina Messer CCC-AIRCRAFT SERVICER [address] [place] [address] 03/31/2025 10:00 AM EST Office Visit [facility] Neurosurgery [place] 85 [facility] [address] [place] [address] Samara Mendoza PA-C [address] [phone] documented as of this encounter Goals Goal [...] on filedocumented in this encounter Care Teams Hole Digger Truck Driver Relationship Specialty Start Date End Date Brett Sharma NP [address] [place] [address] PCP - General Family Medicine 03/03/24 Isis Young RN 80 [place] [address] Nurse Navigator Surgery, Neurosurgery 01/25/25 Tip Campos MD [address] [phone] Surgery, Neurosurgery 02/01/25 Magnus Perez MD [address] [phone] Cardiovascular Disease 02/01/25 System, Provider Not In [address] [place] [address] Hematology Oncology 02/01/25 Miki Blackwood MD 15 [place] [address] Endocrinology 02/01/25 Raúl Pike MD [address] [place] [address] Gastroenterology 02/01/25 Jorge Moreno DO 269 [facility] 201 [place] [address] Immunology 02/01/25 Arturo Bunn MD [address] [place] [address] Otolaryngology 02/01/25 Leatha Mc PA 85 [facility] 1003 [place] [address] Physician Splicer Apprentice Surgery, Neurosurgery 02/05/25 documented as of this encounter
--- OUTSIDE RECORDS SUMMARY | 2025-03-27 11:43 | XMS_ITS | Clinical Summary ---
Author Organization [facility] Prior to 09/19/[address] [place] [address] Care Team Providers Care Supervisor Wound Name Role Phone Brett Sharma Primary Care Provider [phone] Allergies Active Allergy Reactions Criticality Noted Date Comments Amoxicillin-Pot Clavulanate Anaphylaxis High 10/19/2013 Cinnamon 12/31/2023 Doxycycline Anaphylaxis High 05/03/2017 Hydrocodone-Acetaminoph en Swelling 05/03/2017 Ibuprofen Anaphylaxis High 12/31/2023 Latex Rash Low 05/21/2019 Meperidine Swelling 05/03/2017 Morphine 09/12/2021 Other Rash Low 04/04/2017 turnips Oxycodone-Acetaminophen Rash,Swelling Low 8 Prednisone Other (See Comments) Medium 08/28/2022 [place] Hives Medium 04/04/2017 Tramadol Itching Low 09/12/2023 [...] age to complete this topic Care Teams Supervisor Wound Relationship Specialty Start Date End Date Brett Sharma [address] [facility] [place]Y [place] [address] PCP - General Family Medicine 09/11/21
--- OUTSIDE RECORDS SUMMARY | 2025-03-27 11:43 | XMS_ITS | Encounter Summary ---
Author Organization [facility] Address [address] [place] [address] Care Team Providers Care Account Technician Name Role Phone Brett Sharma NP Primary Care Provider + [phone] Isis Young RN Unavailable Tip Campos MD Unavailable [phone] Magnus Perez MD Unavailable [phone] System, Provider Not In Unavailable Unavaila Miki Diana MD Unavailable [phone] Raúl Pike MD Unavailable Jorge Moreno DO Unavailable [phone] Arturo Bunn MD Unavailable Leatha Mc Unavailable [phone] Encounter Details Date Type Department Care Team (Late st Contact Info) Description 02/17/2025 Scanned Document [facility] Neurosurgery [address] [address] Leatha Mc PA [address] [address] Social History Tobacco Use Types Packs/Day [...] any time in the past 12 m [facility], were you homeless or living in a prison (including now)? No 02/05/2025 [facility] Utilities Answer Date Recorded In [...] Info) Description 03/31/2025 9:00 AM EST Treatment [facility] Yung [address] [place] [address] EMILI Barragan [address] Leatha Mc PA [address] [phone] Zeina Messer, [facility]-FIRE OFFICER 1559 [place] [address] 03/31/2025 10:00 AM EST Office Visit [facility] Neurosurgery [place] [address] [phone] Samara Mendoza PA-C [address] [address] documented as of this encounter Visit Diagnoses Not on filedocumented in this encounter Care Teams Account Technician Relationship Specialty Start Date End Date Brett Sharma NP 262 [place] [address] PCP - General Family Medicine 03/03/24 Isis Young RN 80 [place] [address] Nurse Navigator Surgery, Neurosurgery 01/25/25 Tip Campos MD [address] [place] [address] Surgery, Neurosurgery 02/01/25 Magnus Perez MD [address] [place] [phone] Cardiovascular Disease 02/01/25 System, Provider Not In [address] [place] [phone] Hematology Oncology 02/01/25 Miki Blackwood MD [address] [place] [address] Endocrinology 02/01/25 Raúl Pike MD [address] [place] [address] 102 [place] [address] Gastroenterology 02/01/25 Jorge Moreno DO [address] [place] [address] 201 [place] [address] Immunology 02/01/25 Arturo Bunn MD [address] [place] [address] Otolaryngology 02/01/25 Leatha Mc PA 85 [facility] 1003 [place] [address] Physician Technician Assistant Surgery, Neurosurgery 02/05/25 documented as of this encounter
--- OUTSIDE RECORDS SUMMARY | 2025-03-27 11:43 | XMS_ITS | Encounter Summary ---
Author Organization [facility] Address [address] [place] [address] Phone Care Team Providers Care Residential Care Facility Manager Name Role Phone Arturo Lawrence MD, PhD Unavailable [phone] Brett Sharma NP Primary Care Provider + Encounter Details Date Type Department Care Team (Late st Contact Info) Description 10/04/2023 Procedure Pass [facility] Cardiology [facility] [place] [address] [facility], [address] [place] [address] Social History Tobacco Use Types Packs/Day Years [...] Description 04/13/2025 3:00 PM EST Office Visit [facility] [address] [facility], [address] [place] [address] Miki Blackwood MD 55 [facility] [address] [place] [address] [email or web address] 04/29/2025 10:30 AM EST Office Visit [facility] [address] [facility], 5th [place] [address] Ranjit Morley MD [address] [address] [email or web address] 05/18/2025 8:45 AM EST Evaluation [facility] Audiology [address] [address] Charissa Lew AuD 243 [place] [address] [email or web address] 05/18/2025 9:30 AM EST Office Visit [facility] Otology [address] [address] Arturo Bunn MD, PhD [address] [place] [address] [email or web address] 08/27/2025 9:10 AM EDT Office Visit [facility] 70 [place] [address] Pooja Jacob MD [address] [address] [email or web address] 09/24/2025 10:30 AM EDT Office Visit [facility] [address] [facility], [address] [place] [address] Magnus Perez MD 55 [facility] [address] [place] [address] [email or web address] documented as of this encounter Visit Diagnoses Not on filedocumented in this encounter Care Teams Residential Care Facility Manager Relationship Specialty Start Date End Date Brett Sharma, SELWYN [address] [facility] [address] PCP - General Family Medicine 08/16/21 Arturo Lawrence MD, PhD 55 [facility] Out[facility] [address]B [place] [address] [email or web address] Hematology and Oncology 07/06/17 documented as of this encounter Additional Source Comments The information contained in this document represents components of the legal health record. It is not the complete legal health record.[facility]
--- OUTSIDE RECORDS SUMMARY | 2025-03-27 11:43 | XMS_ITS | Encounter Summary ---
Author Organization [facility] Address [address] [facility] [address] [place] [address] Phone Care Team Providers Care Feed Mill Tender Name Role Phone Arturo Lawrence MD, PhD Unavailable [phone] Brett Sharma NP Primary Care Provider + Encounter Details Date Type Department Care Team (Late Contact Info) Description 09/25/2023 Procedure [facility] [address] [place] [phone] Social History Tobacco Use Types Packs/Day Years [...] Description 04/13/2025 3:00 PM EST Office Visit [facility] 15 [facility], [address] [place] [address] Miki Blackwood MD 55 [facility] [address] [place] [address] [email or web address] 04/29/2025 10:30 AM EST Office Visit [facility] 55 [facility], 5th [place] [address] Ranjit Morley MD 15 [facility] 535 [place] [address] [email or web address] 05/18/2025 8:45 AM EST Evaluation [facility] Audiology [address] [address] Charissa Lew AuD [address] [place] [address] [email or web address] 05/18/2025 9:30 AM EST Office Visit [facility] Otology [address] [address] Arturo Bunn MD, PhD [address] [place] [address] [email or web address] 08/27/2025 9:10 AM EDT Office Visit [facility] 70 [place] [address] Pooja Jacob MD [address] [address] [email or web address] 09/24/2025 10:30 AM EDT Office Visit [facility] Cardiology [facility] [address] [facility], [address] [place] [address] Magnus Perez MD 55 [facility] 5[address] [place] [address] [email or web address] documented as of this encounter Visit Diagnoses Not on filedocumented in this encounter Care Teams Feed Mill Tender Relationship Specialty Start Date End Date Brett Sharma NP [address] [facility] [place] [address] PCP - General Family Medicine 08/16/21 Arturo Lawrence MD, PhD [address] [place] [address] Outpatient [facility] 7B [place] [address] [email or web address] Hematology and Oncology 07/06/17 documented as of this encounter Additional Source Comments The information contained in this document represents components of the legal health record. It is not the complete legal health record.[facility]
--- OUTSIDE RECORDS SUMMARY | 2025-03-27 11:43 | XMS_ITS | Encounter Summary ---
Author Organization [facility] Address [address] [address] Phone Care Team Providers Care Senior Administrative Assistant Name Role Phone Pcp, Not Required Primary Care Provider Unavaila Arturo Tong MD, PhD Unavailable [phone] Rylee Zendejas BEHAVIORAL HEALTH TECH Primary Care Provider Unknown, Unknown Primary Care Provider Rylee Sanchez BEHAVIORAL HEALTH TECH Primary Care Provider Brett Sharma BEHAVIORAL HEALTH TECH Primary Care Provider + Encounter Details Date Type Department Care Team (Late st Contact Info) Description 08/14/2018 Transcribe Orders [facility] Phleb Main 30 [place] [address] Arturo Lawrence MD, PhD [address] [place] [address] [address] [email or web address] Social History Tobacco Use Types Packs/Day [...] Description 04/13/2025 3:00 PM EST Office Visit [facility] 15 [facility], [address] [place] [address] Miki Blackwood MD 55 [facility] [address] [place] [address] [email or web address] 04/29/2025 10:30 AM EST Office Visit [facility] Gastro[facility]ology Associates 55 [facility], 5th [place] [address] Ranjit Morley MD [address] [address] [email or web address] 05/18/2025 8:45 AM EST Evaluation [facility] Audiology [address] [address] Charissa Lew AuD 243 [place] [address] [email or web address] 05/18/2025 9:30 AM EST Office Visit [facility] Otology [address] [address] Arturo Bunn MD, PhD [address] [place] [address] [email or web address] 08/27/2025 9:10 AM EDT Office Visit [facility] Cardi[facility] Clinic 70 [place] [address] Pooja Jacob MD [address] [address] [email or web address] 09/24/2025 10:30 AM EDT Office Visit [facility] Cardiology [facility] [address] [facility] [address] [place] [address] Magnus Perez MD 55 [facility] 5[address] [place] [address] [email or web address] documented as of this encounter Visit Diagnoses Not on filedocumented in this encounter Care Teams Senior Administrative Assistant Relationship Specialty Start Date End Date Pcp, Not Required PCP - General 08/24/16 04/26/19 Rylee Zendejas, SELWYN [address] [place] [address] [email or web address] PCP - General Family Medicine 04/27/19 06/15/19 Unknown, Cesario, [address] [place] [address] PCP - General 06/16/19 06/22/19 Rylee Zendejas NP [address] [place] [address] [place] [address] [email or web address] PCP - General Family Medicine 06/23/19 08/15/21 Brett Sharma, SELWYN [address] [place] [address] [place] [address] PCP - General Family Medicine 08/16/21 Arturo Lawrence MD, PhD 55 [facility] Outpatient [facility] 7[address] [place] [address] [email or web address] Hematology and Oncology 07/06/17 documented as of this encounter Additional Source Comments The information contained in this document represents components of the legal health record. It is not the complete legal health record.[facility]
--- OUTSIDE RECORDS SUMMARY | 2025-03-27 11:43 | XMS_ITS | Encounter Summary ---
Author Organization [facility] Address [address] [place] [address] Care Team Providers Care Potato Seed Cutter Name Role Phone Brett Sharma NP Primary Care Provider + [phone] Isis Young RN Unavailable Tip Campos MD Unavailable Magnus Perez MD Unavailable [phone] System, Provider Not In Unavailable Unavaila Miki Diana MD Unavailable [phone] Raúl Pike MD Unavailable Jorge Moreno DO Unavailable [phone] Arturo Bunn MD Unavailable Leatha Mc Unavailable [phone] Encounter Details Date Type Department Care Team (Late st Contact Info) Description 03/19/2025 Scanned Document [facility] Neurosurgery [address] [address] Tip Campos MD [address] [place] [address] Social History Tobacco Use Types Packs/Day [...] any time in the past 12 m [facility], were you homeless or living in a correction (including now)? No 02/05/2025 [facility] [...] Info) Description 03/31/2025 9:00 AM EST Treatment [facility] Yung [address] [place] [address] EMILI Barragan [address] Leatha Mc PA [address] [phone] Zeina Messer CCC-ROADS SUPERINTENDENT [address] [place] [address] 03/31/2025 10:00 AM EST Office Visit [facility] Neurosurgery [place] 85 [facility] [address] [place] [address] Samara Mendoza PA-C [address] [phone] documented as of this encounter Goals Goal [...] filedocumented in this encounter Care Teams Potato Seed Cutter Relationship Specialty Start Date End Date Brett Sharma NP [address] [place] [address] PCP - General Family Medicine 03/03/24 Isis Young RN 80 [place] [address] Nurse Navigator Surgery, Neurosurgery 01/25/25 Tip Campos MD [address] [phone] Surgery, Neurosurgery 02/01/25 Magnus Perez MD [address] [phone] Cardiovascular Disease 02/01/25 System, Provider Not In [address] [place] [phone] Hematology Oncology 02/01/25 Miki Blackwood MD 15 [place] [address] Endocrinology 02/01/25 Raúl Pike MD [address] [place] [address] Gastroenterology 02/01/25 Jorge Moreno DO 269 [facility] 201 [place] [address] Immunology 02/01/25 Arturo Bunn MD [address] [place] [address] Otolaryngology 02/01/25 Leatha Mc PA 85 [facility] 1003 [place] [address] Physician Washery Boss Surgery, Neurosurgery 02/05/25 documented as of this encounter
--- OUTSIDE RECORDS SUMMARY | 2025-03-27 11:43 | XMS_ITS | Clinical Summary ---
Author Organization [facility] Address [address] [place] [address] Phone Care Team Providers Care Qual Research Manager Name Role Phone Brett Sharma NP Primary Care Provider Allergies Active Allergy Reactions Criticality Noted Date Comments [place] Oil Rash Low 04/04/2017 Amoxicillin-Pot Clavulanate Anaphylaxis High 10/19/2013 Cinnamon Unknown Medium 12/31/2023 Doxycycline Anaphylaxis High 05/03/2017 Flavoring Agent (Bulk) Rash Low 04/04/2017 Hydrocodone-Acetaminophen Swelling 05/03/2017 Ibuprofen Anaphylaxis High 12/31/2023 Latex Rash Low 05/21/2019 Meperidine Swelling 05/03/2017 Morphine 09/12/2021 Other Rash Low 04/04/2017 turnips Oxycodone-Acetaminophen Rash,Swelling Low 8 Prednisone Medium 08/28/2022 Other Reaction(s): Other (See Comments) [place] Hives Medium 04/04/2017 Tramadol Itching Low 09/12/2023 [...] care for your loved ones. For example, registered nurse maternal child or elderly care for an older adult? [...] Care Team (Late st Contact Info) Description 05/04/2025 9:00 AM EST Office Visit Obstetrics and Gynecology - [address] [place] [phone] Faustina Weaver MD [address] [place] [address]26 [place] [address] Health Maintenance Due Date Last Done Comments Breast Cancer Screening 1976 Colorectal Cancer Screening: Colonoscopy 1975 Hepatitis B Vaccines (1 of 3 - 19+ 3-dose series) 09/14/1995 COVID-19 Vaccine (2024- season) 2024 01/29/2024, 01/27/2023, 01/17/2022, Additional history exists Influenza Vaccine (#1) 2024 , 02/05/2023, 02/19/2022, Additional history exists Social Influencers of Health Screening 05/27/2025 05/27/2024 [...] Results * Cervical Cancer Screening: HPV (12/31/2023) [facility] Cervical Cancer Screening: HPV Negative, Abstracted [facility] Provider HEALTH MAINTENANCE Final Result * HIV Screening (10/17/2022) [facility] HIV Screening Abstracted [facility] Provider HEALTH MAINTENANCE Final Result * Hepatitis C Screening (10/17/2022) [facility] Hepatitis C Screening Abstracted [facility] Provider HEALTH MAINTENANCE Final Result from Last 3 Months or Most Recently Relevant to Health Maintenance Insurance Care Teams Qual Research Manager Relationship Specialty Start Date End Date Brett Sharma NP 262 [place], [place] PCP - General Family Medicine 09/11/21
--- OUTSIDE RECORDS SUMMARY | 2025-03-27 11:43 | XMS_ITS | Encounter Summary ---
Author Organization [facility] Address [address] [address] Phone Care Team Providers Care Contemporary Or Modern Dancer Name Role Phone Pcp, Not Required Primary Care Provider Unavaila Arturo Tong MD, PhD Unavailable [phone] Rylee Zendejas UNIT SUPPORT REPRESENTATIVE Primary Care Provider Unknown, Unknown Primary Care Provider Rylee Sanchez UNIT SUPPORT REPRESENTATIVE Primary Care Provider Brett Sharma UNIT SUPPORT REPRESENTATIVE Primary Care Provider + Encounter Details Date Type Department Care Team (Late st Contact Info) Description 08/14/2018 Transcribe Orders [facility] Phleb Main 30 [place] [address] Arturo Lawrence MD, PhD [address] [place] [address] [address] [email or web address] Social History Tobacco Use Types Packs/Day [...] Description 04/13/2025 3:00 PM EST Office Visit [facility] 15 [facility], [address] [place] [address] Miki Blackwood MD 55 [facility] [address] [place] [address] [email or web address] 04/29/2025 10:30 AM EST Office Visit [facility] 55 [employer], 5th [place] [address] Ranjit Morley MD [address] [address] [email or web address] 05/18/2025 8:45 AM EST Evaluation [facility] Audiology [address] [address] Charissa Lew AuD 243 [place] [address] [email or web address] 05/18/2025 9:30 AM EST Office Visit [facility] Otology [address] [address] Arturo Bunn MD, PhD [address] [place] [address] [email or web address] 08/27/2025 9:10 AM EDT Office Visit [facility] 70 [place] [address] Pooja Jacob MD [address] [address] [email or web address] 09/24/2025 10:30 AM EDT Office Visit [facility] [address] [facility] [address] [place] [address] Magnus Perez MD 55 [facility] [address] [place] [address] [email or web address] documented as of this encounter Visit Diagnoses Not on filedocumented in this encounter Care Teams Contemporary Or Modern Dancer Relationship Specialty Start Date End Date Pcp, Not Required PCP - General 08/24/16 04/26/19 Rylee Zendejas, SELWYN [address] [place] [address] [email or web address] PCP - General Family Medicine 04/27/19 06/15/19 Unknown, Cesario, [address] [place] [address] PCP - General 06/16/19 06/22/19 Rylee Zendejas NP [address] [place] [address] [place] [address] [email or web address] PCP - General Family Medicine 06/23/19 08/15/21 Brett Sharma, SELWYN [address] [place] [address] [place] [address] PCP - General Family Medicine 08/16/21 Arturo Lawrence MD, PhD 55 [facility] Outpatient CareY[facility] [address] [place] [address] [email or web address] Hematology and Oncology 07/06/17 documented as of this encounter Additional Source Comments The information contained in this document represents components of the legal health record. It is not the complete legal health record.[facility]
--- OUTSIDE RECORDS SUMMARY | 2025-03-27 11:43 | XMS_ITS | Encounter Summary ---
Author Organization [facility] Address 399 [facility] [address] [place] [address] Phone Care Team Providers Care Master Certified Rv Technician Name Role Phone Pcp, Not Required Primary Care Provider Arturo Castillo MD, PhD Unavailable [phone] Rylee Zendejas FORESTRY SUPPORT SPECIALIST Primary Care Provider Unknown, Unknown Primary Care Provider Rylee Sanchez FORESTRY SUPPORT SPECIALIST Primary Care Provider Brett Sharma FORESTRY SUPPORT SPECIALIST Primary Care Provider + Encounter Details Date Type Department Care Team (Late st Contact Info) Description 02/03/[address] [facility] Imaging 55 [place] [address] Social History Tobacco Use Types Packs/Day Years [...] Description 04/13/2025 3:00 PM EST Office Visit [facility] 15 [facility], [address] [place] [address] Miki Blackwood MD [address] [place] [address] [address] [place] [address] [email or web address] 04/29/2025 10:30 AM EST Office Visit [facility] Gastroenterology Associates 55 [facility], 5th [place] [address] Ranjit Morley MD 15 [facility] 535 [place] [address] [email or web address] 05/18/2025 8:45 AM EST Evaluation [facility] Audiology [address] [address] Charissa Lew AuD [address] [place] [address] [email or web address] 05/18/2025 9:30 AM EST Office Visit [facility] Otology [address] [address] Arturo Bunn MD, PhD [address] [place] [address] [email or web address] 08/27/2025 9:10 AM EDT Office Visit [facility] 70 [place] [address] Pooja Jacob MD [address] [address] [email or web address] 09/24/2025 10:30 AM EDT Office Visit [facility] Cardiology [facility] [address] [facility], [address] [place] [address] Magnus Perez MD 55 [facility] YAW [address] [place] [address] [email or web address] documented as of this encounter Visit Diagnoses Not on filedocumented in this encounter Care Teams Master Certified Rv Technician Relationship Specialty Start Date End Date Pcp, Not Required PCP - General 08/24/16 04/26/19 Rylee Zendejas, SELWYN [address] [place] [address] [email or web address] PCP - General Family Medicine 04/27/19 06/15/19 Unknown, Unknown, [address] [place] [address] PCP - General 06/16/19 06/22/19 Rylee Zendejas NP [address] [place] [address] [place] [address] [email or web address] PCP - General Family Medicine 06/23/19 08/15/21 Brett Sharma, SELWYN [address] [place] [address] [place] [address] PCP - General Family Medicine 08/16/21 Arturo Lawrence MD, PhD [address] [place] [address] Outpatient CareW [address] [place] [address] [email or web address] Hematology and Oncology 07/06/17 documented as of this encounter Additional Source Comments The information contained in this document represents components of the legal health record. It is not the complete legal health record.[facility]
--- OUTSIDE RECORDS SUMMARY | 2025-03-27 11:43 | XMS_ITS | Encounter Summary ---
Author Organization [facility] Address [address] [place] [address] Care Team Providers Care Cash Manager Name Role Phone Brett Sharma NP Primary Care Provider + [phone] Isis Young RN Unavailable Tip Campos MD Unavailable Magnus Perez MD Unavailable System, Provider Not In Unavailable Unavaila Miki Diana MD Unavailable [phone] Raúl Pike MD Unavailable [phone] Jorge Moreno DO Unavailable Arturo Bunn MD Unavailable Leatha Mc Unavailable [phone] Encounter Details Date Type Department Care Team (Late st Contact Info) Description 03/04/2024 Scanned Document [facility] Plastic & Reconstructive Surgery [address] [place] [address] Michael Long MD [address] [place] [address] 210 [place] [address] Social History Tobacco Use Types Packs/Day Years [...] 03/31/2025 9:00 AM EST Treatment [facility] [address] [address] Leatha Mc PA [address] [place] [phone] Zeina Messer, [facility] [address] [place] [address] 03/31/2025 10:00 AM EST Office Visit [facility] Neurosurgery [place] [address] [phone] Samara Mendoza PA-C [address] [place] [phone] documented as of this encounter Visit Diagnoses Not on filedocumented in this encounter Care Teams Cash Manager Relationship Specialty Start Date End Date Brett Sharma NP [address] [place] [address] PCP - General Family Medicine 03/03/24 Isis Young RN 80 [place] [address] Nurse Navigator Surgery, Neurosurgery 01/25/25 Tip Campos MD [address] [address] Surgery, Neurosurgery 02/01/25 Magnus Perez MD [address] [place] [phone] Cardiovascular Disease 02/01/25 System, Provider Not In [address] [place] [phone] Hematology Oncology 02/01/25 Miki Blackwood MD [address] [place] [address] Endocrinology 02/01/25 Raúl Pike MD [address] [place] [address] Gastroenterology 02/01/25 Jorge Moreno DO [address] [place] [address] Immunology 02/01/25 Arturo Bunn MD [address] [place] [address] Otolaryngology 02/01/25 Leatha Mc PA [address] [address] Physician Flour Blender Helper Surgery, Neurosurgery 02/05/25 documented as of this encounter
--- OUTSIDE RECORDS SUMMARY | 2025-03-27 11:43 | XMS_ITS | Encounter Summary ---
Author Organization [facility] Address [address] [place] [address] Care Team Providers Care Risk Management Manager Name Role Phone Brett Sharma NP Primary Care Provider + [phone] Isis Young RN Unavailable [phone] Tip Campos MD Unavailable Magnus Perez MD Unavailable [phone] System, Provider Not In Unavailable Unavaila Miki Diana MD Unavailable [phone] Raúl Pike MD Unavailable Jorge Moreno DO Unavailable [phone] Arturo Bunn MD Unavailable Leatha Mc Unavailable [phone] Encounter Details Date Type Department Care Team (Late st Contact Info) Description 04/21/2024 Scanned Document [facility] Plastic & Reconstructive Surgery [address] [place] [address] Mary Solomon LPN [address] [address] Social History Tobacco Use Types Packs/Day Years [...] Info) Description 03/31/2025 9:00 AM EST Treatment [facility] 35 [place] [address] Leatha Mc PA [address] [address] Zeina Messer, [facility] BPC DEVELOPER [address] [place] [address] 03/31/2025 10:00 AM EST Office Visit [facility] Neurosurgery [facility] [address] [phone] Samara Mendoza, PA-C [address] [phone] documented as of this encounter Visit Diagnoses Not on filedocumented in this encounter Care Teams Risk Management Manager Relationship Specialty Start Date End Date Brett Sharma NP [address] [place] [address] PCP - General Family Medicine 03/03/24 Isis Young RN 80 [place] [address] Nurse Navigator Surgery, Neurosurgery 01/25/25 Tip Campos MD [address] [address] Surgery, Neurosurgery 02/01/25 Magnus Perez MD [address] [place] [phone] Cardiovascular Disease 02/01/25 System, Provider Not In [address] [place] [phone] Hematology Oncology 02/01/25 Miki Blackwood MD [address] [place] [address] Endocrinology 02/01/25 Raúl Pike MD [address] [place] [address] Gastroenterology 02/01/25 Jorge Moreno DO [address] [place] [address] Immunology 02/01/25 Arturo Bunn MD [address] [place] [address] Otolaryngology 02/01/25 Leatha cM PA [address] [address] Physician Marker Machine Attendant Surgery, Neurosurgery 02/05/25 documented as of this encounter
--- OUTSIDE RECORDS SUMMARY | 2025-03-27 11:43 | XMS_ITS | Encounter Summary ---
Author Organization [facility] Address [address] [place] [address] Care Team Providers Care Caption Writer Name Role Phone Brett Sharma NP Primary Care Provider + [phone] Isis Young RN Unavailable Tip Campos MD Unavailable [phone] Magnus Perez MD Unavailable [phone] System, Provider Not In Unavailable Unavaila Miki Diana MD Unavailable [phone] Raúl Pike MD Unavailable [phone] Jorge Moreno DO Unavailable [phone] Arturo Bunn MD Unavailable Leatha Mc Unavailable [phone] Encounter Details Date Type Department Care Team (Late st Contact Info) Description 03/09/2025 Scanned Document [facility] Neurosurgery [address] [address] Leatha Mc PA [address] [address] Social History Tobacco Use Types [...] any time in the past 12 m [facility], were you homeless or living in a senior care (including now)? No 02/05/2025 [facility] Utilities Answer Date Recorded In [...] Info) Description 03/31/2025 9:00 AM EST Treatment [facility] Yung [address] [place] [address] EMILI Barragan [address] Leatha Mc PA [address] [phone] Zeina Messer CCC-MANUFACTURING LABORER [address] [place] [address] 03/31/2025 10:00 AM EST Office Visit [facility] Neurosurgery [place] 85 [facility] [address] [place] [phone] Samara Mendoza PA-C [address] [phone] documented as of this encounter Goals Goal [...] on filedocumented in this encounter Care Teams Caption Writer Relationship Specialty Start Date End Date Brett Sharma NP [address] [place] [address] PCP - General Family Medicine 03/03/24 Isis Young RN 80 [place] [address] Nurse Navigator Surgery, Neurosurgery 01/25/25 Tip Campos MD [address] [phone] Surgery, Neurosurgery 02/01/25 Magnus Perez MD [address] [phone] Cardiovascular Disease 02/01/25 System, Provider Not In [address] [place] [phone] Hematology Oncology 02/01/25 Miki Blackwood MD 15 [place] [address] Endocrinology 02/01/25 Raúl Pike MD [address] [place] [address] Gastroenterology 02/01/25 Jorge Moreno DO 269 [facility] 201 [place] [address] Immunology 02/01/25 Arturo Bunn MD [address] [place] [address] Otolaryngology 02/01/25 Leatha Mc PA 85 [facility] 1003 [place] [address] Physician Belt Maker Helper Surgery, Neurosurgery 02/05/25 documented as of this encounter
--- OUTSIDE RECORDS SUMMARY | 2025-03-27 11:43 | XMS_ITS | Encounter Summary ---
Author Organization [facility] Address [address] [place] [address] Care Team Providers Care Laboratory Equipment Cleaner Name Role Phone Pcp, No Primary Care Provider Unavailabl Brett Iqbal NP Primary Care Provider [phone] Isis Young RN Unavailable Tip Campos MD Unavailable [phone] Magnus Perez MD Unavailable System, Provider Not In Unavailable Unavaila Miki Diana MD Unavailable Raúl Pike MD Unavailable Jorge Moreno DO Unavailable Arturo Bunn MD Unavailable Leatha Mc Unavailable [phone] Encounter Details Date Type Department Care Team (Late st Contact Info) Description 02/27/2024 Scanned Document [facility] Plastic & Reconstructive Surgery [address] [place] [phone] Michael Long MD [address] [place] [address] 210 [place] [address] Social History Tobacco Use Types Packs/Day Years [...] Description 03/31/2025 9:00 AM EST Treatment [facility] 35 [place] [address] Leatha Mc PA [address] [place] [phone] Zeina Messer, [facility] [address] 03/31/2025 10:00 AM EST Office Visit [facility] Neurosurgery [place] [address] [phone] Samara Mendoza PA-C [address] [place] [phone] documented as of this encounter Visit Diagnoses Not on filedocumented in this encounter Care Teams Laboratory Equipment Cleaner Relationship Specialty Start Date End Date Pcp, No PCP - General General Medicine 03/04/19 03/02/24 Brett Sharma NP [address] [place] [address] PCP - General Family Medicine 03/03/24 Isis Young RN 80 [place] [address] Nurse Navigator Surgery, Neurosurgery 01/25/25 Tip Campos MD [address] [address] Surgery, Neurosurgery 02/01/25 Magnus Perez MD [address] [place] [phone] Cardiovascular Disease 02/01/25 System, Provider Not In [address] [place] [phone] Hematology Oncology 02/01/25 Miki Blackwood MD [address] [place] [address] Endocrinology 02/01/25 Raúl Pike MD [address] [place] [address] Gastroenterology 02/01/25 Jorge Moreno DO [address] [address] Immunology 02/01/25 Arturo Bunn MD [address] [place] [address] Otolaryngology 02/01/25 Leatha Mc PA [address] [place] [address] Physician Falafel Cart Cook Surgery, Neurosurgery 02/05/25 documented as of this encounter
--- OUTSIDE RECORDS SUMMARY | 2025-03-27 11:43 | XMS_ITS | Encounter Summary ---
Author Organization [facility] Address [address] [address] Phone Care Team Providers Care Blueprint Maker Name Role Phone Pcp, Not Required Primary Care Provider Unavaila Arturo Tong MD, PhD Unavailable [phone] Rylee Zendejas TEACHER'S AIDE Primary Care Provider Unknown, Unknown Primary Care Provider Rylee Sanchez TEACHER'S AIDE Primary Care Provider Brett Sharma TEACHER'S AIDE Primary Care Provider + Encounter Details Date Type Department Care Team (Late st Contact Info) Description 04/07/2019 Transcribe Orders [facility] Phleb Main 30 [place] [address] Arturo Lawrence MD, PhD [address] [place] [address] [address] [email or web address] Pigment cirrhosis (Primary Dx) Social History [...] Description 04/13/2025 3:00 PM EST Office Visit [facility]roid Associates 15 [facility], [address] [place] [address] Miki Blackwood MD 55 [facility] [address] [place] [address] [email or web address] 04/29/2025 10:30 AM EST Office Visit [facility] Gastroenterology Associates 55 [facility], 5th [place] [address] Ranjit Morley MD [address] [address] [email or web address] 05/18/2025 8:45 AM EST Evaluation [facility] Audiology [address] [address] Charissa Lew AuD [address] [place] [address] [email or web address] 05/18/2025 9:30 AM EST Office Visit [facility] Otology [address] [address] Arturo Bunn MD, PhD [address] [place] [phone] [email or web address] 08/27/2025 9:10 AM EDT Office Visit [facility] Cardiovascular Clinic 70 [place] [address] Pooja Jacob MD [address] [address] [email or web address] 09/24/2025 10:30 AM EDT Office Visit [facility] Cardiology [facility] 52 [facility], [address] [place] [address] Magnus Perez MD [address] [place] [address] [email or web address] documented as of this encounter Results * Ferritin (04/07/2019 9:28 AM EST) FERRITIN 22 13 - 150 ug/L [facility] Blood 04/07/2019 9:28 AM EST 04/07/2019 9:30 AM EST Arturo Lawrence MD, PhD LAB BLOOD BKR ORDERABL ES Final Result Performing Organization Address City/[facility]/ZIP Co de Phone Number [address] [address] * Iron and iron binding capacity (04/07/2019 9:28 AM EST) IRON 67 30 - 160 ug/dL [facility] IRON BINDING CAPACITY 230 228 - 428 ug/dL [facility] TRANSFERRIN SATURAT. 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 PCP - General Family Medicine 04/27/19 06/15/19 Unknown, Cesario, [address] [place] [address] PCP - General 06/16/19 06/22/19 Rylee Zendejas, SELWYN [address] [place] [address] [place] [address] [email or web address] PCP - General Family Medicine 06/23/19 08/15/21 Brett Sharma, SELWYN [address] [place] [address] [place] [address] PCP - General Family Medicine 08/16/21 Arturo Lawrence MD, PhD [address] [place] [address] Outpatient CareW [address] [place] [address] [email or web address] Hematology and Oncology 07/06/17 documented as of this encounter Additional Source Comments The information contained in this document represents components of the legal health record. It is not the complete legal health record.[facility]
--- OUTSIDE RECORDS SUMMARY | 2025-03-27 11:43 | XMS_ITS | Encounter Summary ---
Author Organization Formerly [facility] Address [address] [place] [address] Care Team Providers Care Core Driller Helper Name Role Phone Brett Sharma NP Primary Care Provider + [phone] Isis Young RN Unavailable Tip Campos MD Unavailable [phone] Magnus Perez MD Unavailable [phone] System, Provider Not In Unavailable Unavaila Miki Diana MD Unavailable [phone] Raúl Pike MD Unavailable Jorge Moreno DO Unavailable [phone] Arturo Bunn MD Unavailable Leatha Mc Unavailable [phone] Encounter Details Date Type Department Care Team (Late st Contact Info) Description 02/09/2025 Scanned Document [facility] Neurosurgery [address] [phone] Neurosurgery, Scan Social History Tobacco Use Types Packs/Day Years [...] in the past 12 m [facility], were you homeless or living in a correction (including now)? No 02/05/2025 [facility] Utilities Answer Date Recorded In the past [...] Info) Description 03/31/2025 9:00 AM EST Treatment [facility] 35 [place] [phone] Leatha Mc, AJAY 85 [facility] 100[address] [place], [place] [phone] Zeina Messer, [facility] 1559 [place] [address] 03/31/2025 10:00 AM EST Office Visit [facility] Neurosurgery [place] [address] [phone] Samara Mendoza PA-C [address] [address] documented as of this encounter Visit Diagnoses Not on filedocumented in this encounter Care Teams Core Driller Helper Relationship Specialty Start Date End Date Brett Sharma NP 262 [place] [address] PCP - General Family Medicine 03/03/24 Isis Young RN 80 [place] [address] Nurse Navigator Surgery, Neurosurgery 01/25/25 Tip Campos MD [address] [place] [address] Surgery, Neurosurgery 02/01/25 Magnus Perez MD [address] [place] [phone] Cardiovascular Disease 02/01/25 System, Provider Not In [address] [place] [phone] Hematology Oncology 02/01/25 Miki Blackwood MD [address] [place] [address] Endocrinology 02/01/25 Raúl Pike MD [address] [place] [address] 102 [place] [address] Gastroenterology 02/01/25 Jorge Moreno DO 269 [facility] 201 [place] [address] Immunology 02/01/25 Arturo Bunn MD [address] [place] [address] Otolaryngology 02/01/25 Leatha Mc PA [address] [place] [address] 1003 [place] [address] Physician Order Schedule Clerk Surgery, Neurosurgery 02/05/25 documented as of this encounter
--- OUTSIDE RECORDS SUMMARY | 2025-03-27 11:43 | XMS_ITS | Encounter Summary ---
Author Organization [facility] Address [address] [place] [address] Phone Care Team Providers Care Software Test Engineer Name Role Phone Arturo Lawrence MD, PhD Unavailable [phone] Brett Sharma NP Primary Care Provider + Encounter Details Date Type Department Care Team (Late st Contact Info) Description 11/30/2021 Procedure Pass [facility] Cardiology [address] [facility], [address] [place] [phone] Social History Tobacco Use Types Packs/Day Years [...] Description 04/13/2025 3:00 PM EST Office Visit [facility] 15 [facility], [address] [place] [address] Miki Blackwood MD [address] [place] [address] [address] [place] [address] [email or web address] 04/29/2025 10:30 AM EST Office Visit [facility] 55 [facility], 5th [place] [address] Ranjit Morley MD [address] [address] [email or web address] 05/18/2025 8:45 AM EST Evaluation [facility] Audiology [address] [address] Charissa Lew AuD 243 [place] [address] [email or web address] 05/18/2025 9:30 AM EST Office Visit [facility] Otology [address] [address] Arturo Bunn MD, PhD [address] [place] [address] [email or web address] 08/27/2025 9:10 AM EDT Office Visit [facility] 70 [place] [address] Pooja Jacob MD [address] [address] [email or web address] 09/24/2025 10:30 AM EDT Office Visit [facility] Cardiology [facility] [address] [facility], [address] [place] [address] Magnus Perez MD 55 [facility] 5B [place] [address] [email or web address] documented as of this encounter Visit Diagnoses Not on filedocumented in this encounter Care Teams Software Test Engineer Relationship Specialty Start Date End Date Brett Sharma NP [address] [place] [address] PCP - General Family Medicine 08/16/21 Arturo Lawrence MD, PhD [address] [place] [address] [facility] 7B [place] [address] [email or web address] Hematology and Oncology 07/06/17 documented as of this encounter Additional Source Comments The information contained in this document represents components of the legal health record. It is not the complete legal health record.[facility]
--- OUTSIDE RECORDS SUMMARY | 2025-03-27 11:43 | XMS_ITS | Encounter Summary ---
Author Organization [facility] Address [address] [place] [address] Care Team Providers Care Garment Cutter Name Role Phone Pcp, No Primary Care Provider Unavailabl Brett Iqbal NP Primary Care Provider [phone] Isis Young RN Unavailable Tip Campos MD Unavailable [phone] Magnus Perez MD Unavailable [phone] System, Provider Not In Unavailable Unavaila Miki Diana MD Unavailable [phone] Raúl Pike MD Unavailable Jorge Moreno DO Unavailable Arturo Bunn MD Unavailable Leatha Mc Unavailable [phone] Encounter Details Date Type Department Care Team (Late st Contact Info) Description 02/27/2024 Scanned Document [facility] [address] 210 [place] [phone] Michael Long MD [address] [place] [address] 210 [place] [address] Social History Tobacco Use Types Packs/Day Years [...] AM EST Treatment [facility] 35 [place] [address] Leatha Mc PA [address] [place] [phone] Zeina Messer, [facility] [address] 03/31/2025 10:00 AM EST Office Visit [facility] [place] [address] [phone] Samara Mendoza PA-C [address] [place] [phone] documented as of this encounter Visit Diagnoses Not on filedocumented in this encounter Care Teams Garment Cutter Relationship Specialty Start Date End Date Pcp, No PCP - General General Medicine 03/04/19 03/02/24 Brett Sharma NP [address] [place] [address] PCP - General Family Medicine 03/03/24 Isis Young RN 80 [place] [address] Nurse Navigator Surgery, Neurosurgery 01/25/25 Tip Campos MD [address] [address] Surgery, Neurosurgery 02/01/25 Magnus Perez MD [address] [place] [phone] Cardiovascular Disease 02/01/25 System, Provider Not In [address] [place] [phone] Hematology Oncology 02/01/25 Miki Blackwood MD [address] [place] [address] Endocrinology 02/01/25 Raúl Pike MD [address] [place] [address] Gastroenterology 02/01/25 Jorge Moreno DO [address] [address] Immunology 02/01/25 Arturo Bunn MD [address] [place] [address] Otolaryngology 02/01/25 Leatha Mc PA [address] [place] [address] Physician Technical Inspector Surgery, Neurosurgery 02/05/25 documented as of this encounter
--- OUTSIDE RECORDS SUMMARY | 2025-03-27 11:44 | XMS_ITS | Encounter Summary ---
Author Organization [facility] Address [address] [facility] [address] [place] [address] Phone Care Team Providers Care Fisher Diver Net Name Role Phone Arturo Lawrence MD, PhD Unavailable [phone] Brett Sharma NP Primary Care Provider + Encounter Details Date Type Department Care Team (Late st Contact Info) Description 08/28/2022 Procedure Pass [facility] Scan - [address] [address] Social History Tobacco Use Types Packs/Day Years [...] 08/28/2022 4:56 AM Eli Rios, RN * Fielding Suicide Severity Rating Scale (Screener/Recent Self-Report) Question [...] Description 04/13/2025 3:00 PM EST Office Visit [facility] 15 [facility], [address] [place] [address] Miki Blackwood MD [address] [place] [address] [address] [place] [address] [email or web address] 04/29/2025 10:30 AM EST Office Visit [facility] Gastroenterology Associates [address] [place] [address], 5th [place] [address] Ranjit Morley MD [address] [address] [email or web address] 05/18/2025 8:45 AM EST Evaluation [facility] Audiology [address] [address] Charissa Lew AuD [address] [place] [address] [email or web address] 05/18/2025 9:30 AM EST Office Visit [facility] Otology [address] [address] Arturo Bunn MD, PhD [address] [place] [address] [email or web address] 08/27/2025 9:10 AM EDT Office Visit [facility] Cardiovascular Clinic 70 [place] [address] Pooja Jacob MD 75 [facility]3 [place] [address] [email or web address] 09/24/2025 10:30 AM EDT Office Visit [facility] Cardiology [facility] [address] [facility], [address] [place] [address] Magnus Perez MD 55 [facility] Y[address] 5B [place] [address] [email or web address] documented as of this encounter Visit Diagnoses Not on filedocumented in this encounter Care Teams Fisher Diver Net Relationship Specialty Start Date End Date Brett Sharma NP 1961 [facility] [place] [address] PCP - General Family Medicine 08/16/21 Arturo Lawrence MD, PhD 55 [facility] Outpatient Care[facility] 7B [place] [address] AURELIA@[email or web address] Hematology and Oncology 07/06/17 documented as of this encounter Additional Source Comments The information contained in this document represents components of the legal health record. It is not the complete legal health record.[facility]
--- OUTSIDE RECORDS SUMMARY | 2025-03-27 11:44 | XMS_ITS | Encounter Summary ---
Author Organization [facility] Address 399 [facility] [address] [place] [address] Phone Care Team Providers Care Correctional Food Service Supervisor Name Role Phone Arturo Lawrence MD, PhD Unavailable [phone] Brett Sharma NP Primary Care Provider + Encounter Details Date Type Department Care Team (Late st Contact Info) Description 09/28/2022 Procedure Pass [facility] [place] 32 [facility], 6th [place] [address] Social History Tobacco Use Types Packs/Day Years [...] Description 04/13/2025 3:00 PM EST Office Visit [facility] 15 [facility], [address] [place] [address] Miki Blackwood MD 55 [facility] [address] [place] [address] [email or web address] 04/29/2025 10:30 AM EST Office Visit [facility] Gastroenterology Associates 55 [facility], 5th [place] [address] Ranjit Morley MD 15 [facility] 535 [place] [address] MARCELA@[email or web address] 05/18/2025 8:45 AM EST Evaluation [facility] Audiology [address] [address] Charissa Lew AuD [address] [place] [address] [email or web address] 05/18/2025 9:30 AM EST Office Visit [facility] Otology [address] [address] Arturo uBnn MD, PhD [address] [place] [address] [email or web address] 08/27/2025 9:10 AM EDT Office Visit [facility] Cardiovascular Clinic 70 [place] [address] Pooja Jacob MD [address] [address] [email or web address] 09/24/2025 10:30 AM EDT Office Visit [facility] [address] [facility], [address] [place] [address] Magnus Perez MD [address] [address] [email or web address] documented as of this encounter Visit Diagnoses Not on filedocumented in this encounter Care Teams Correctional Food Service Supervisor Relationship Specialty Start Date End Date Brett Sharma NP [address] [facility] [address] PCP - General Family Medicine 08/16/21 Arturo Lawrence MD, PhD 55 [facility] Out[facility] Care[facility] 7B [place] [address] AURELIA@[email or web address] Hematology and Oncology 07/06/17 documented as of this encounter Additional Source Comments The information contained in this document represents components of the legal health record. It is not the complete legal health record.[facility]
--- OUTSIDE RECORDS SUMMARY | 2025-03-27 11:44 | XMS_ITS | Encounter Summary ---
Author Organization [facility] Address [address] [address] Phone Care Team Providers Care Lens Hardener Name Role Phone Pcp, Not Required Primary Care Provider Arturo Castillo MD, PhD Unavailable [phone] Rylee Zendejas OPERATOR CAVITY PUMP Primary Care Provider Unknown, Unknown Primary Care Provider Rylee Sanchez OPERATOR CAVITY PUMP Primary Care Provider Brett Sharma OPERATOR CAVITY PUMP Primary Care Provider + Reason for Referral * Consultation (Elective) - Closed Specialty Diagnoses / Procedures Referred By Contact Referred To Contact Pediatric Gastroenterology Diagnoses Non-celiac gluten sensitivity System, Provider Not In, PhD [address] [address] Referral ID Status Reason Start Date Expiration Date Visits Re quested Visits Authorized [id number] Closed 08/24/2016 08/24/2017 1 1 Encounter Details Date Type Department Care Team (Late st Contact Info) Description 08/24/[address] [facility] [address] [place] [address] Pcp, Not Required Non-celiac gluten sensitivity (Primary Dx); Intestinal malabsorption, [...] Description 04/13/2025 3:00 PM EST Office Visit [facility] 15 [facility], [address] [place] [address] Miki Blackwood MD 55 [facility] [address] [place] [address] [email or web address] 04/29/2025 10:30 AM EST Office Visit [facility] 55 [facility], 5th [place] [address] Ranjit Morley MD [address] [address] [email or web address] 05/18/2025 8:45 AM EST Evaluation [facility] Audiology [address] [address] Charissa Lew AuD 243 [place] [address] [email or web address] 05/18/2025 9:30 AM EST Office Visit [facility] Otology [address] [address] Arturo Bunn MD, PhD [address] [place] [address] [email or web address] 08/27/2025 9:10 AM EDT Office Visit [facility] Cardiovascular Clinic 70 [place] [address] Pooja Jacob MD [address] [address] [email or web address] 09/24/2025 10:30 AM EDT Office Visit [facility] Cardiology [place] [facility] [address] [facility], [address] [place] [address] Magnus Perez MD [address] [address] [email or web address] Scheduled Referrals Name Type Priority Associated Diagnoses Orde r Schedule Ambulatory referral to [facility] Pediatric GI/Nutrition Outpatient Referral Routine Non-celiac gluten sensitivity Ordered: 08/24/2016 documented as of this encounter Visit Diagnoses Diagnosis Non-celiac gluten sensitivity- Primary Intestinal malabsorption, unspecified type documented in this encounter Care Teams Lens Hardener Relationship Specialty Start Date End Date Pcp, Not Required PCP - General 08/24/16 04/26/19 Rylee Zendejas NP [address] [place] [address] [email or web address] PCP - General Family Medicine 04/27/19 06/15/19 Cesario, MD Cesario [address] [place] [address] PCP - General 06/16/19 06/22/19 Rylee Zendejas NP [address] [place] [address] [place] [address] [email or web address] PCP - General Family Medicine 06/23/19 08/15/21 Brett Sharma NP [address] [place] [address] [place] [address] PCP - General Family Medicine 08/16/21 Arturo Lawrence MD, PhD 55 [facility] Outpatient CareYAW 7B [place] [address] AURELIA@[email or web address] Hematology and Oncology 07/06/17 documented as of this encounter Additional Source Comments The information contained in this document represents components of the legal health record. It is not the complete legal health record.[facility]
--- OUTSIDE RECORDS SUMMARY | 2025-03-27 11:44 | XMS_ITS | Encounter Summary ---
Author Organization [facility] Address 399 [facility] [address] [place] [address] Phone Care Team Providers Care Insolvency Practitioner Name Role Phone Arturo Lawrence MD, PhD Unavailable [phone] Brett Sharma NP Primary Care Provider + Encounter Details Date Type Department Care Team (Late st Contact Info) Description 02/12/2023 Procedure Pass [facility] 2013 [place], [place] [id number] Social History Tobacco Use Types Packs/Day Years [...] Description 04/13/2025 3:00 PM EST Office Visit [facility] 15 [facility], [address] [place] [address] Miki Blackwood MD 55 [facility] [address] [place] [address] KALPANA@[email or web address] 04/29/2025 10:30 AM EST Office Visit [facility] Gastroenterology Associates 55 [facility], 5th [place] [address] Ranjit Morley MD 15 [facility] 535 [place] [address] MARCELA@[email or web address] 05/18/2025 8:45 AM EST Evaluation [facility] Audiology [address] [address] Charissa Lew AuD [address] [place] [address] [email or web address] 05/18/2025 9:30 AM EST Office Visit [facility] Otology [address] [address] Arturo Bunn MD, PhD [address] [place] [address] [email or web address] 08/27/2025 9:10 AM EDT Office Visit [facility] 70 [place] [address] Pooja Jacob MD [address] [address] [email or web address] 09/24/2025 10:30 AM EDT Office Visit [facility] Cardiology [place] [facility] [address] [facility], [address] [place] [address] Magnus Perez MD 55 [facility] [address] [place] [address] [email or web address] documented as of this encounter Visit Diagnoses Not on filedocumented in this encounter Care Teams Insolvency Practitioner Relationship Specialty Start Date End Date Brett Sharma NP [facility] [place] [address] PCP - General Family Medicine 08/16/21 Arturo Lawrence MD, PhD [address] [place] [address] Outpatient CareYAW 7B [place] [address] AURELIA@[email or web address] Hematology and Oncology 07/06/17 documented as of this encounter Additional Source Comments The information contained in this document represents components of the legal health record. It is not the complete legal health record.[facility]
--- OUTSIDE RECORDS SUMMARY | 2025-03-27 11:44 | XMS_ITS | Encounter Summary ---
Author Organization [facility] Address [address] [place] [address] Care Team Providers Care Flap Curer Name Role Phone Brett Sharma NP Primary Care Provider [phone] Isis Young RN Unavailable Tip Campos MD Unavailable Magnus Perez MD Unavailable [phone] System, Provider Not In Unavailable Unavaila Miki Diana MD Unavailable [phone] Raúl Pike MD Unavailable Jorge Moreno DO Unavailable [phone] Arturo Bunn MD Unavailable Leatha Mc Unavailable [phone] Encounter Details Date Type Department Care Team (Late st Contact Info) Description 01/27/2025 Scanned Document [facility] Neurosurgery [address] [place] [address] Tip Campos MD [address] [place] [address] 1003 [place] [address] Social History Tobacco Use Types [...] as of this encounter Functional Status * AUDIT-C Score Answer Date of Assessment Author 2 [...] Info) Description 03/31/2025 9:00 AM EST Treatment [address] [phone] Leatha Mc PA [address] [address] Zeina Messer, [facility] COORDINATOR 17[address] [place] [address] 03/31/2025 10:00 AM EST Office Visit [facility] Neurosurgery [place] [address] [address] Samara Mendoza PA-C [address] [address] documented as of this encounter Visit Diagnoses Not on filedocumented in this encounter Care Teams Flap Curer Relationship Specialty Start Date End Date Brett Sharma NP [address] [place] [address] PCP - General Family Medicine 03/03/24 Isis Young RN 80 [place] [address] Nurse Navigator Surgery, Neurosurgery 01/25/25 Tip Campos MD [address] [place] [address] Surgery, Neurosurgery 02/01/25 Magnus Perez MD [address] [place] [phone] Cardiovascular Disease 02/01/25 System, Provider Not In [address] [place] [phone] Hematology Oncology 02/01/25 Miki Blackwood MD [address] [place] [address] Endocrinology 02/01/25 Raúl Pike MD [address] [place] [address] Dr [place] [address] Gastroenterology 02/01/25 Jorge Moreno DO [address] [place] [address] 201 [place] [address] Immunology 02/01/25 Arturo Bunn MD [address] [place] [address] Otolaryngology 02/01/25 Leatha Mc PA [address] [address] Physician Staff Psychologist Surgery, Neurosurgery 02/05/25 documented as of this encounter
--- OUTSIDE RECORDS SUMMARY | 2025-03-27 11:44 | XMS_ITS | Encounter Summary ---
Author Organization [facility] Address [address] [place] [address] Care Team Providers Care Slitter Scorer Cut Off Operator Name Role Phone Brett Sharma NP Primary Care Provider + [phone] Isis Young RN Unavailable [phone] Tip Campos MD Unavailable [phone] Magnus Perez MD Unavailable [phone] System, Provider Not In Unavailable Unavaila Miki Diana MD Unavailable [phone] Raúl Pike MD Unavailable [phone] Jorge Moreno DO Unavailable [phone] Arturo Bunn MD Unavailable Leatha Mc Unavailable [phone] Encounter Details Date Type Department Care Team (Late st Contact Info) Description 01/22/2025 Scanned Document [facility] [id number] [address] [place] [phone] Tip Campos MD [address] [place] [address] [place] [address] Social History Tobacco Use Types Packs/Day [...] Info) Description 03/31/2025 9:00 AM EST Treatment [facility] [address] [phone] Leatha Mc PA [address] [phone] Zeina Messer, [facility]-SUPERVISORY INVESTIGATIVE SPECIALIST [address] [place] [address] 03/31/2025 10:00 AM EST Office Visit [facility] Neurosurgery [place] [address] [phone] Samara Mendoza, PA-C [address] [phone] documented as of this encounter Visit Diagnoses Not on filedocumented in this encounter Care Teams Slitter Scorer Cut Off Operator Relationship Specialty Start Date End Date Brett Sharma NP [address] [place] [address] PCP - General Family Medicine 03/03/24 Isis Young RN [address] [place] [address] Nurse Navigator Surgery, Neurosurgery 01/25/25 Tip Campos MD [address] [address] Surgery, Neurosurgery 02/01/25 Magnus Perez MD [address] [place] [phone] Cardiovascular Disease 02/01/25 System, Provider Not In [address] [place] [phone] Hematology Oncology 02/01/25 Miki Blackwood MD [address] [place] [address] Endocrinology 02/01/25 Raúl Pike MD [address] [place] [address] Gastroenterology 02/01/25 Jorge Moreno DO [address] [place] [phone] Immunology 02/01/25 Arturo Bunn MD [address] [place] [address] Otolaryngology 02/01/25 Leatha Mc PA [address] [address] Physician Door To Door Fundraising Collector Surgery, Neurosurgery 02/05/25 documented as of this encounter
--- OUTSIDE RECORDS SUMMARY | 2025-03-27 11:44 | XMS_ITS | Encounter Summary ---
Author Organization [facility] Address [address] [facility] [address] [place] [address] Phone Care Team Providers Care Pumper Brewery Name Role Phone Arturo Lawrence MD, PhD Unavailable [phone] Brett Sharma NP Primary Care Provider + Encounter Details Date Type Department Care Team (Late st Contact Info) Description 06/21/2023 Procedure Pass [facility] Cardiology [address] [facility], [address] [place], [place] [phone] Social History Tobacco Use Types Packs/Day Years [...] Description 04/13/2025 3:00 PM EST Office Visit [facility] [address] [facility], [address] [place] [address] Miki Blackwood MD [address] [facility] [address] [place] [address] [email or web address] 04/29/2025 10:30 AM EST Office Visit [facility] [address] [facility], 5th [place] [address] Ranjit Morley MD [address] [address] [email or web address] 05/18/2025 8:45 AM EST Evaluation [facility] Audiology [address] [address] Charissa Lew AuD [address] [place] [phone] [email or web address] 05/18/2025 9:30 AM EST Office Visit [facility] Otology [address] [address] Arturo Bunn MD, PhD [address] [place] [address] [email or web address] 08/27/2025 9:10 AM EDT Office Visit [facility] [address] [place] [address] Pooja Jacob MD [address] [address] [email or web address] 09/24/2025 10:30 AM EDT Office Visit [facility] Cardiology [facility] [address] [facility], [address] [place] [address] Magnus Perez MD 55 [facility] [address] [place] [address] [email or web address] documented as of this encounter Visit Diagnoses Not on filedocumented in this encounter Care Teams Pumper Brewery Relationship Specialty Start Date End Date Brett Sharma NP [facility] [place] [address] PCP - General Family Medicine 08/16/21 Arturo Lawrence MD, PhD [address] [place] [address] Outpatient [facility] [address] [place] [address] [email or web address] Hematology and Oncology 07/06/17 documented as of this encounter Additional Source Comments The information contained in this document represents components of the legal health record. It is not the complete legal health record.[facility]
--- OUTSIDE RECORDS SUMMARY | 2025-03-27 11:44 | XMS_ITS | Clinical Summary ---
Author Organization [facility] Address [address] [address] Phone Care Team Providers Care Linecasting Machine Keyboard Operator Name Role Phone Arturo Lawrence MD, PhD Unavailable [phone] Brett Sharma NP Primary Care Provider + Allergies Active Allergy Reactions Criticality Noted Date Comments [place] Oil Rash Low 04/04/2017 Amoxicillin-Pot Clavulanate Anaphylaxis High 10/19/2013 Flavoring Agent (Bulk) Rash Low 04/04/2017 Meperidine Swelling 05/03/2017 Doxycycline Hyclate Anaphylaxis High 05/03/2017 Ibuprofen 05/23/2022 Throat tightness feels like asthma attack Latex, Natural Rubber Rash Low 05/21/2019 Morphine Itching,Swelling 10/19/2013 Other 08/28/2022 turnip Oxycodone-Acetaminophen Swelling 05/03/2017 Ok with tylenol Prednisone Neuropathy Medium 08/28/2022 [place] Hives Medium 04/04/2017 Tramadol Itching Low 09/12/2023 [...] 90 tablet 3 5 09/09/19 26 Active Active Problems Problem Noted Date Diagnosed Date Bilateral hearing loss 01/01/2025 H/O total thyroidectomy 02/12/2023 GERD (gastroesophageal reflux disease) 3 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 A prior echocardiogram reports mild [...] the study from July 2017 done in [facility]. She will try to send me [...] repeat echocardiogram in July [address] [facility] facility and then one week later an office visit with me to review the findings. Follow up in July 2018, one week after the repeat echocardiogram. 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 Lawrence for hemochromatosis and receives therapeutic phlebotomy. There is a plan from her performance test consultant, Dr. Castle at [facility] to perform a cardiac MRI to assess [...] Date Type Department Care Team Description 02/01/2025 Telephone [facility] Cardiology [address] [place] [address] Magnus Perez MD 01/25/2025 Telephone [facility] Cardiology [facility] [address] [facility], [address] [place] [address] Magnus Perez MD 01/20/2025 Ancillary Orders [facility] [address] [place] [address] Cesario, MD Cesario 01/19/2025 4:26 PM EDT - 01/19/2025 11:59 PM EDT Hospital Encounter [facility] [address] [place] [address] Jorge Moreno DO Discharge Disposition: Home or Self Care 01/19/2025 Transcribe Orders [facility] [address] [place] [address] Jorge Moreno DO Adverse food reaction, subsequent encounter (Primary Dx); Allergy to other foods 01/18/2025 Orders Only [facility] Center for Hematology [address] [facility], 7th Floor, [address] [place] [address] Arturo Lawrence MD, PhD 01/17/2025 - 01/17/2025 11:59 PM EDT Hospital Encounter [facility] [address] [place] [address] Unknown, Unknown, MD Discharge Disposition: Home or Self Care 01/15/2025 11:30 AM EDT Evaluation [facility] Audiology [address] [address] Arturo Bunn MD, PhD Edison Alecia Eron Sensorineural hearing loss (SNHL) of both ears (Primary Dx) 01/15/2025 11:00 AM EDT Evaluation [facility] Audiology [address] [address] Arturo Bunn MD, PhD Sharon Borrego AuD Sensorineural hearing loss, bilateral 01/15/2025 9:30 AM EDT Office Visit [facility] Otology [address] [address] Arturo Bunn MD, PhD Sudden left hearing loss (Primary Dx); Sensorineural hearing loss (SNHL), bilateral 01/15/2025 Transcribe Orders [facility] Audiology [address] [address] Arturo Bunn MD, PhD Hearing disorder, unspecified laterality (Primary Dx) 01/06/2025 1:10 PM EDT - 01/06/2025 11:59 PM EDT Hospital Encounter [facility] [address] [place] [address] Jorge Moreno DO Discharge Disposition: Home or Self Care 01/06/2025 Transcribe Orders [facility] [address] [place] [address] Jorge Moreno DO Anaphylaxis, subsequent encounter (Primary Dx) 01/04/2025 12:08 AM EDT - 01/04/2025 2:28 AM EDT Emergency [facility] [address] [place] [address] Discharge Disposition: Home or Self Care 12/31/2024 4:40 PM EDT Office Visit [facility] Center for Hematology [address] [place] [address], 7th Floor, [address] [place] [address] Arturo Lawrence MD, PhD Hereditary hemochromatosis (Primary Dx); Bilateral hearing loss, unspecified hearing loss type; Fibroids 12/28/2024 2:45 AM EDT - 12/28/2024 6:20 AM EDT Emergency [facility] [address] [place] [address] Jairo Young, DO Discharge Disposition: Home or Self Care from Last 3 Months Immunizations Immunization Administration [...] 04/13/2025 3:00 PM EST Office Visit [facility] [address] [facility], [address] [place] [address] Miki Blackwood MD [address] [place] [address] [address] [place] [address] [email or web address] 04/29/2025 10:30 AM EST Office Visit [facility] [address] [facility], 5th [place] [address] Ranjit Morley MD [address] [address] [email or web address] 05/18/2025 8:45 AM EST Evaluation [facility] Audiology [address] [address] Charissa Lew AuD [address] [place] [address] [email or web address] 05/18/2025 9:30 AM EST Office Visit [facility] Otology [facility] [address] [address] Arturo Bunn MD, PhD [address] [place] [phone] [email or web address] 08/27/2025 9:10 AM EDT Office Visit [facility] [address] [place] [address] Pooja Jacob MD [address] [address] [email or web address] 09/24/2025 10:30 AM EDT Office Visit [facility] Cardiology [facility] [address] [facility], [address] [place] [address] Magnus Perez MD [address] [facility] [address] [place] [address] [email or web address] Health Maintenance Due Date Last Done Comments DEPRESSION SCREENING 1988 HIV ONE-TIME SCREENING (18-65 YEARS) 1994 PNEUMOCOCCAL VACCINES (0-49 years) (1 of 2 - PCV) 09/14/1995 MAMMOGRAM 2016 COLOGUARD 2021 COLONOSCOPY 2021 COLORECTAL CANCER SCREENING 2021 FIT TEST 2021 FOBT 2021 SIGMOIDOSCOPY 2021 VIRTUAL COLONOSCOPY 2021 Adult Td,Tdap Booster 09/20/2021 09/21/2011 COVID-19 VACCINE (2024- season) 2024 03/24/2021, 05/27/2020, [...] this topic Medical Devices Implanted Type Area Sulky Driver Device Identifier Shelf Expiration Date Model / [...] Routine 12/31/2024 2:58 PM EDT Hereditary hemochromatosis THYROID STIMULATING HORMONE (TSH) Routine 12/24/2024 4:54 PM EDT Hypothyroidism, postop Thyroid cancer from Last 3 Months or Most Recently Relevant to Health Maintenance Results * Cinnamon, IgE (01/19/2025 4:41 PM EDT) CINNAMON, IGE <0.10 <0.70 kU/L [facility]PATH SUPERIOR BOSCH Comment: (NOTE) Class 0 (Negative <0.10) ADDITIONAL INFORMATION This test was developed and its performance characteristics determined by [facility] in a manner consistent with CLIA requirements. This test has not been cleared or approved by the U.S. Food and Drug Administration. Blood 01/19/2025 4:41 PM EDT 01/19/2025 4:47 PM EDT Jorge Beckham Photolitec DO LAB BLOOD ORDERABLES Final R esult Performing Organization Address [facility] Co de Phone Number [facility] LAB MED/[place] [address] * Immunoglobulin E, total (01/19/2025 4:41 PM EDT) Pathologist [facility] IGE 27.8 <=214 kU/L [facility] LAB MED/PATH SUPERIOR BOSCH Blood 01/19/2025 4:41 PM EDT 01/19/2025 4:47 PM EDT Jorge Beckham Photolitec DO LAB BLOOD BKR ORDERABLES Fin al Result Performing Organization Address City/[facility] Co de Phone Number [facility] LAB MED/[place] [address] * MRI Spine (Bone) Outside (No Interpretation) (01/17/2025 12:00 AM EDT) Narrative [facility] IMG INTERFACES - 01/20/2025 1:35 PM EDT This study is for PACS storage only and not for interpretation. us Unknown Unknown IMG OUTSIDE IMAGING W/OUT INT ERPRETATION Final Result [facility] IMG INTERFACES * Audiology Orders (01/15/2025 11:13 AM EDT) 01/15/2025 11:1 3 AM EDT us Provider Not In System PhD AUDIOLOGY SERVICES OR DERABLES Final Result DR BERNAL AUD * CBC and differential (12/31/2024 2:58 PM EDT) WBC 7.78 4.00 - 11.00 K/uL [facility] RBC 4.71 4.00 - 5.20 M/uL [facility] HGB 14.4 12.0 - 16.0 g/dL [facility] HCT 41.8 36.0 - 46.0 % [facility] PLT 326 150 - 450 K/uL [facility] MCV 88.7 80.0 - 100.0 fL [facility] MCH 30.6 27.0 - 31.0 pg [facility] MCHC 34.4 32.0 - 36.0 g/dL [facility] RDW 13.6 11.5 - 14.5 % [facility] MPV 10.1 8.4 - 12.0 fL [facility] NRBC 0.00 0.00 /100 WBCs [facility] ABSOLUTE NRBC 0.00 0.00 K/uL [facility] DIFF METHOD Auto [facility] NEUTS 60.9 48.0 - 76.0 % [facility] LYMPHS 29.6 18.0 - 41.0 % [facility] MONOS 7.5 4.0 - 11.0 % [facility] EOS 0.8 0.0 - 5.0 % [facility] BASOS 0.8 0.0 - 1.5 % [facility] % IMMATURE GRANS 0.4 0.0 - 0.9 % [facility] ABSOLUTE NEUTS 4.75 1.92 - 7.60 K/uL [facility] ABSOLUTE LYMPHS 2.30 0.72 - 4.10 K/uL [facility] ABSOLUTE MONOS 0.58 0.16 - 1.10 K/uL [facility] ABSOLUTE EOS 0.06 0.00 - 0.50 K/uL [facility] ABSOLUTE BASOS 0.06 0.00 - 0.15 K/uL [facility] ABS IMMATURE GRANS 0.03 0.00 - 0.09 K/uL [facility] Blood 12/31/2024 2:58 PM EDT 12/31/2024 3:09 PM EDT us Arturo Lawrence MD, PhD LAB BLOOD BKR ORDERABL ES Final Result Performing Organization Address City/[facility]/ZIP Co de Phone Number [address] [address] * Ferritin (12/31/2024 2:58 PM EDT) FERRITIN 24 10 - 200 ug/L [facility] 12/31/2024 2:58 PM EDT 12/31/2024 3:09 PM EDT Arturo Lawrence MD, PhD LAB BLOOD BKR ORDERABL ES Final Result Performing Organization Address City/[facility]/ZIP Co de Phone Number [address] [address] * TSH (12/24/2024 4:54 PM EDT) TSH 0.47 0.27 - 4.20 uIU/mL [facility] Blood 12/24/2024 4:54 PM EDT 12/24/2024 5:01 PM EDT Miki Blackwood MD LAB BLOOD BKR ORDERABLES F inal Result [address] [address] from Last 3 Months or Most Recently Relevant to Health Maintenance Insurance AETNA PPO AETNA PPO AETNA PPO AET[employer] PPO A[employer] PPO [employer] PPO [employer] [phone] [id number] Care Teams Linecasting Machine Keyboard Operator Relationship Specialty Start Date End Date Brett Sharma NP [facility] [place] [address] PCP - General Family Medicine 08/16/21 Arturo Lawrence MD, PhD [address] [place] [address] [address] [email or web address] Hematology and Oncology 07/06/17 Additional Source Comments The information contained in this document represents components of the legal health record. It is not the complete legal health record.[facility]
[2025-03-27 13:47] LABS: MANUAL DIFF FLAG NO
[2025-03-27 13:52] LABS: Hematocrit 39.2 % (37.0-47.0); Hemoglobin 13.0 g/dl (12.0-16.0); Imm Gran Abs Auto 0.03 X10*3/uL (0.00-0.03); Imm Gran Pct Auto 0.3 % (0.0-0.4); Lymphocytes Absolute Auto 0.7 X10*3/uL (1.2-4.9); Mean Corpuscular HGB Conc 33.2 g/dl (31.0-35.0); Mean Corpuscular Hemoglobin 31.2 pg (27.0-33.0); Mean Corpuscular Volume 94.0 fL (80.0-98.0); NRBC Abs Auto 0.000 X10*3/uL (0.0-0.012); NRBC Pct Auto 0.0 /100WBC (0.0-0.2); Platelet Count 304 X10*3/uL (160-400); Red Blood Count 4.17 X10*6/uL (4.20-5.50); White Blood Count 9.8 X10*3/uL (4.8-10.8)
[2025-03-27 14:06] LABS: Alanine Aminotransferase 26 U/L (0-31); Albumin Level 4.5 g/dL (3.5-5.0); Alkaline Phosphatase 67 U/L (39-117); Anion Gap 11 (12-20); Aspartate Amino Transferase 22 U/L (5-31); Blood Urea Nitrogen 12 mg/dL (9-16); Calcium 9.0 mg/dL (8.4-10.2); Carbon Dioxide 26 mmol/L (22-29); Chloride 109 mmol/L (96-108); Estimated Glomerular Filt Rate > 60; Potassium 3.6 mmol/L (3.3-5.1); Sodium 142 mmol/L (135-145); Total Protein 6.9 g/dL (6.5-8.0)
[2025-03-27 14:30] LABS: Erythrocyte Sedimentation Rate 8 MM/HR (0-20)
[2025-03-29 21:34] LABS: SM/Ribonucleoprotein Ab <1.0 NEG AI (<1.0 NEG); Smith Protein <1.0 NEG AI (<1.0 NEG)
[2025-03-30 12:57] LABS: Anti Nuclear Antibody Screen NEGATIVE (NEGATIVE)
== END 2025-03-27 11:40 | disposition home or self-care (01) ==
LOC: HO.HMGCLDS 11:39
PROVIDERS: PCP Nurse Practitioner Family; Visit Provider Allergy & Immunology
DX: Z01.84 Encounter for antibody response examination (principal); J30.9 Allergic rhinitis, unspecified; R13.10 Dysphagia, unspecified
CPT/HCPCS: 36415; 80053; 85025; 85652; 86038; 86140; 86235

== ENCOUNTER 2025-04-04 13:18 | Observation (INO) | payer OTHER, SELFPAY ==
--- OUTSIDE RECORDS SUMMARY | 2024-09-08 03:20 | XMS_ITS ---
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 B arrett esophagus - K22.70 (Primary) Plan: * Procedure Codes: 4 3239 UPPER GI ENDOSCOPY, BIOPSY Billing Information: * Procedure Codes: 99051 UPPER GI ENDOSCOPY, BIOPSY. * The named appointment provid er may or may not be the originator of this progress note, and it is not deemed complete until electronically signed by the appointment provider. Sign off status: Pending * Provider: Ulices Pike MD Date: 0 09/08/2024 Generated for Chitra ordaz/Consuelo/Oscar on: 1 06/05/2024 04:49 PM EST
--- OUTSIDE RECORDS SUMMARY | 2025-03-31 10:00 | XMS_ITS | Encounter Summary ---
Author Organization [facility] Address [address] [place] [address] Care Team Providers Care Email Operations Manager Name Role Phone Rosalind Vizcarra NP Primary Care Provider + [phone] Isis Young RN Unavailable [phone] Tip Campos MD Unavailable [phone] Magnus Perez MD Unavailable [phone] System, Provider Not In Unavailable Unavaila Miki Diana MD Unavailable [phone] Raúl Pike MD Unavailable [phone] Jorge Moreno DO Unavailable Arturo Bunn MD Unavailable Leatha Mc Unavailable [phone] Reason for Referral * Rehabilitation (Elective) - Pending Review Specialty Diagnoses / Procedures Referred By Contelda t Referred To Contact Rehabilitation Diagnoses Lumbar radiculopathy Degeneration of intervertebral disc of lumbar region with discogenic back pain and lower extremity pain Samara Mendoza PA-C [address] [place] [address] Phone: tel: fax: [facility] Phone: tel: Referral ID Status Reason Start Date Expiration Date Visits Requested Visits Authorized [id number] Pending Review Support Services 04/01/2026 99 99 Question Answer Is this referral for an initial evaluation or additional visits? Initial evaulation Is this related to a Neurological Condition? Yes Is this referral for PT or OT? PT - L5-S1 DDD, lumbar sacral radiculopathy * Rehabilitation (Elective) - Pending Review Specialty Diagnoses / Procedures Referred By Can t Referred To Contact Rehabilitation Diagnoses S/P cervical spinal fusion Cervical disc disorder with radiculopathy Samara Mendoza PA-C [address] [place] [id number] Phone: tel: fax: [facility] Phone: tel: Referral ID Status Reason Start Date Expiration Date Visits Requested Visits Authorized [id number] Pending Review Support Services 04/01/2026 99 99 Question Answer Is this referral for an initial evaluation or additional visits? Additional visits Is this related to a Neurological Condition? Yes Is this referral for PT or OT? PT - S/p C4-6 ACDF on 02/05/2025 for right C5 radic with deltoid weakness - ok to start gentle PT for arm strengthening. Ok for UE weights gradual progression. may start gentle ROM. Reason for Visit * Reason Comments Back Pain Neck Pain Encounter Details Date Type Department Care Team (Latest Contact Info) Description 03/31/2025 10:00 AM EST Office Visit [facility] Neurosurgery [address] [place] [phone] Samara Mendoza PA-C [address] [place] [id number] S/P cervical spinal fusion (Primary Dx); Cervical disc disorder with radiculopathy; Lumbar radiculopathy; Degeneration of intervertebral disc of lumbar region with discogenic back pain and lower extremity pain; Fibromuscular dysplasia Social History Tobacco Use Types Packs/Day Years [...] any time in the past 12 m [facility], were you homeless or living in a detention (including now)? No 02/05/2025 [facility] Utilities Answer Date Recorded In the [...] Taken Comments Blood Pressure - - Pulse 80 03/31/2025 9:57 AM EST Temperature - - Respiratory Rate - - Oxygen Saturation 97% 03/31/2025 9:57 AM EST Inhaled Oxygen Concentration - - Weight 66.2 kg (146 lb) 03/31/2025 9:57 AM EST Height 160 cm (5' 3 ) 03/31/2025 9:57 AM EST Body Mass Index 25.86 03/31/2025 9:57 AM EST documented in this encounter Progress Notes * Samara Mendoza PA-C - 03/31/2025 10:00 AM EST Assessment & Plan Camryn is presenting for postoperative follow up from C4-6 ACDF on 02/05/2025. Right arm strength significantly improved. Lumbar radiculopathy. Struggling from pulmonary perspective, has follow-up today. -Regarding her pulmonary status, she has now had 2 courses of steroids. We discussed weighing the risk benefits of additional steroids moving forward in regards to her early postop arthrodesis consideration. She voiced good understanding of this. - PT for cervical and lumbar spine. - MRA head/neck pending 04/01 for concern of FMD from previous cardiology work up. Will follow-up pending results, may consider [facility] visit if findings or review if negative at next scheduled appointment. Ativan provided. PDMP compliant. - Calcium/Vitamin D supplement (OTC is ok) - bone stimulator use continued - Instructions re: incisional care and activity restrictions reviewed - Follow up in 8-10weeks weeks with xrays Subjective Camryn Quach is here for a follow up postop visit. 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 She went on to have C4-6 ACDF on 02/05/2025. At her initial postop visit 02/19 she had minimal pain- u sing tylenol only. She had dysphagia which was present preoperatively and was referred for NUCLEAR CONTROL ROOM OPERATOR evaluation and MBS (no aspiration/penetration, s/sx likely due to esophagitis and self's). She contacted our office 03/26 reporting new left arm pain following a coughing fit. This ultimatelyresolved. She was found to have RSV. She was placed on a steroid taper by her allergy/asthma provider. She is currently in PT. She reports neck pain 2/10. Some intermittent hand numbness. She reports she has now full range of motion with her right arm. Strength is significantly improving. She reports numbness from her right lower back lateral right leg down to the plantar right foot. The following portions of the patient's history were reviewed and updated as appropriate: allergies, current medications, past family history, past medical history, past social history, past surgicalhistory and problem list. Objective Physical Exam: Pulse 80 Ht 1.6 m (5' 3 ) Wt 66.2 kg (146 lb) SpO2 97% BMI 25.86 kg/m?? Constitutional: in no acute distress and healthy appearing. Head and Face: atraumatic and head normocephalic. Eyes: the sclera and conjunctiva were normal. Pulmonary: normal respiratory rhythm and effort and non-labored breathing. Neurologic: Mental status: alert and oriented, speech clear and fluent, no hoarseness Cranial Nerves: PERRL, EOMI, face symmetric Motor: Bl UE 5/5- significant improvement in RUE D/B strength Sensation: some mild numbness/tingling to R hand noted. Gait: the balance and gait were normal. Vascular: extremities warm and well perfused, no edema Skin: normal skin color and pigmentation. Incision: Healing well. No fullness, erythema, or drainage. Results: XR Cervical spine w/flex+ext 6+ views Result Date: 03/30/2025 Cervical spine 4 views HISTORY: Postoperative, new left arm numbness Postoperative changes are seenfrom C4 through C6 anteriorly with plate and screws. Disc spacers are seen at C4-5 and C5-6. Positioning appears good. No interval changes are noted from prior exam. Minimal subluxation is seen at C2-3 with C2 anterior to C5 3 by a few millimeters. There is mild arthropathy seen throughout the facets apparent inferiorly. A miniscule subluxation is seen C7-T1 with C7 anterior to T1 by 2 mm. This also appears unchanged. On flexion and extension views no instability is felt to be present. Surgicalclips are seen in the anterior aspect of the lower neck likely related to prior thyroid surgery. Postoperative changes C4-C6. Positioning appears good. No instability is seen. Electronically signed by: Juan Moran MD 03/30/2025 07:26 AM EST RP Thank you for referring your patient to us, Juan Moran MD [phone] (Electronically Signed - 03/30/2025 07:26) Copy: PATIENT , XR Lumbar spine complete w/bending 6+ views Result Date: 03/17/2025 EXAMINATION: XR LUMBAR SPINE CLINICAL INFORMATION: Radiculopathy, lumbar region. Patient states lowback pain and right leg numbness, denies trauma or surgery. COMPARISON: X-ray lumbar spine 07/27/2024. TECHNIQUE: AP and lateral views of the lumbar spine and Lima and lateral views of the lumbosacral junction. FINDINGS: Mild lumbar levoscoliosis. Discogenic degenerative changes at L5-S1. No change or instability with flexion or extension. Mild lumbar levoscoliosis. Discogenic degenerative changes at L5-S1. No change or instability with flexion or extension. Electronically signed by: Minh Nayak MD 03/17/2025 03:47 PM EST RP Thank you for referring your patient to us, Minh Nayak MD [phone] (Electronically Signed - 03/17/2025 15:47) Copy: ROSALIND VIZCARRA YIELD CLERK [address] [place] [address] I personally reviewed the imaging and agree with the radiologist's interpretation. Samara Campos MD documented in this encounter Plan of Treatment Upcoming Encounters Date Type Department Care Team (Late st Contact Info) Description 04/26/2025 1:00 PM EST Office Visit [facility] Plastic & Reconstructive Surgery [place] [address] [facility] [address] [place] [phone] Clyde Martin PA [address] [facility] [address] [place] [address] 06/01/2025 10:00 AM EST Office Visit [facility] Neurosurgery [place] [address] [facility] [address] [place] [address] Samaar Mendoza PA-C [address] [facility] [place] [address] [place] [phone] Scheduled Orders Name Type Priority Associated Diagnoses Orde r Schedule XR Cervical spine 4 or 5 views Imaging Routine S/P cervical spinal fusion Expected: 06/29/2025 (Approximate), Expires: 03/31/2026 Scheduled Referrals Name Type Priority Associated Diagnoses Orde r Schedule Amb Referral to Therapy Services (PT or OT) Outpatient Referral Routine S/P cervical spinal fusion Cervical disc disorder with radiculopathy Ordered: 03/31/2025 Amb Referral to Therapy Services (PT or OT) Outpatient Referral Routine Lumbar radiculopathy Degeneration of intervertebral disc of lumbar region with discogenic back pain and lower extremity pain Ordered: 03/31/2025 documented as of this encounter Goals Goal Patient Goal Type Associated Problems Recent Progress Patient-Stated? Author ST LTG 1 Speech Therapy No Zeina Messer CCC-NUCLEAR CONTROL ROOM OPERATOR Note: Pt will tolerate least restrictive diet without s/s aspiration. ST STG 1 Speech Therapy No Zeina Messer CCC-NUCLEAR CONTROL ROOM OPERATOR Note: Pt will complete an instrumental swallowing evaluation within 2 weeks. Additional goals to be set as indicated. documented as of this encounter Visit Diagnoses Diagnosis S/P cervical spinal fusion- Primary Arthrodesis status Cervical disc disorder with radiculopathy Other and unspecified disc disorder of cervical region Lumbar radiculopathy Thoracic or lumbosacral neuritis or radiculitis, unspecified Degeneration of intervertebral disc of lumbar region with discogenic back pain and lower extremity pain Fibromuscular dysplasia Other specified disorders of arteries and arterioles documented in this encounter Care Teams Email Operations Manager Relationship Specialty Start Date End Date Rosalind Vizcarra NP [address] [place] [address] PCP - General Family Medicine 03/03/24 Isis Young RN [address] [place] [address] Nurse Navigator Surgery, Neurosurgery 01/25/25 Tip Campos MD [address] [address] Surgery, Neurosurgery 02/01/25 Magnus Perez MD [address] [place] [phone] Cardiovascular Disease 02/01/25 System, Provider Not In [address] [place] [phone] Hematology Oncology 02/01/25 Miki Blackwood MD [address] [place] [phone] Endocrinology 02/01/25 Raúl Pike MD [address] [place] [address] Gastroenterology 02/01/25 Jorge Moreno DO [address] [place] [phone] Immunology 02/01/25 Arturo Bunn MD [address] [place] [address] Otolaryngology 02/01/25 Leatha Mc PA [address] [place] [phone] Physician Rubber Goods Inspector Surgery, Neurosurgery 02/05/25 documented as of this encounter
--- NOTE | ~2025-04-04 | XR_ITS ---
CLINICAL HISTORY: recent anterior spinal fusion --- Additional Notes or Special Instructions: has been coughing, increased pain 3 views cervical spine Comparison: 07/27/2024 Findings: Since prior exam patient has undergone ACDF C4-C6. Anterior fusion plate and intervertebral grafts are present. Hardware and vertebral alignment appear intact with no evidence of hardware failure. Remaining intervertebral disc heights appear maintained. There is similar slight vertebral body spurring at C6-7. Prevertebral soft tissues normal. Lung apices are unremarkable. Impression: 1. Interval ACDF C4-C6. No evidence of hardware failure. This document has been electronically signed by: Miki Leigh MD on 04/04/2025 18:48:35
--- NOTE | ~2025-04-04 | XR_ITS ---
CLINICAL HISTORY: SOB 2 view chest x-ray. Comparison: None Findings: No consolidation or effusion. Cardiac and mediastinal contours are unremarkable. Bones unremarkable. Impression: 1. No acute pulmonary disease. This document has been electronically signed by: Miki Leigh MD on 04/04/2025 14:28:22
--- NOTE | ~2025-04-04 | CT_ITS ---
CLINICAL HISTORY: pleuritic CP, recent surgery, hx of cancer Exam: Contrast-enhanced chest CT pulmonary angiogram with multiplanar reformats. Comparison: None. Findings: There is no pulmonary embolism or thoracic aortic dissection. No mediastinal or hilar masses or adenopathy. No pleural or pericardial effusions. Images below the diaphragms reveal no acute abnormalities. Lungs are free of focal consolidation. No pulmonary nodules or parenchymal lesions. Airways are patent. No pneumothorax. There is very minimal pulmonary mosaic attenuation common nonspecific although may be seen in small airways disease. Osseous structures reveal no destructive osseous lesions. Impression: 1. No pulmonary embolism, aortic dissection or pulmonary consolidation. Very minimal pulmonary mosaic attenuation as described above. This document has been electronically signed by: Miki Leigh MD on 04/04/2025 18:32:56
[2025-04-04 13:33] VITALS: BP 123/60; PULSE 112; RESP 20; TEMP 36.4; O2SAT 95; BMI 24.8
--- NOTE | 2025-04-04 13:33 | ED.GENADULT ---
HPI - General Adult General Chief complaint: Dyspnea Stated complaint: asthma Time Seen by Provider: 04/04/25 16:35 Source: patient and RN notes reviewed Mode of arrival: ambulatory Limitations: no limitations History of Present Illness ED Provider: Beverley Lao PA-C HPI narrative: This is a 49-year-old female, with a past medical history of thyroid cancer s/p thyroidectomy 2022, cervical spine fusion 7 wks ago, asthma, hemochromatosis, HTN, HLD, MVP, fibromuscular dysplasia, pre-diabetes, with a recent anterior spinal fusion 7 weeks ago. Patient presents for 2 weeks of worsening shortness for breath and cough after an RSV infection diagnosed 7 days ago. Initial illness began on March 23 with URI symptoms which progressed to pneumonia, she was treated with the azithromycin with rapid improvement. Patient then developed RSV on March 29. Patient was started on methylprednisolone 35 milligrams by mouth at that time. Patient states that she felt as though her O2 saturations fell while tapering off of methylprednisolone, and felt as though her symptoms were your worsening therefore the dose was increased to 40 milligrams daily on . She currently has been on prednisolone 40mg for the last 4 days. Patient reports that today she has had increased shortness for breath with talking, walking, and all amount of free fluid and states that she has had nocturnal violent coughing. She also reports that she has had intermittent chest pain, and has had a new achiness in the her right posterior chest that correlates with coughing, and does occasionally occur at random. Patient denies any palpitations, racing heart rate or skipped beats. She states that after climbing 1 flight of stairs her heart rate went to 118 which is atypical of her. She has been monitoring her SpO2, reports 97-98% percent daytime, and drops to 93-94% daytime, and drops to 93-94% on waking. Patient is not currently on any antibiotics. She states that her snapper on, Dr. Moreno is concern for postinfectious pulmonary embolism. Patient reports that she has been using her nebulizers at home which provides her with some relief however after several hours she feels as though she needs it again. She otherwise denies any abdominal pain, nausea, vomiting, diarrhea. No other complaints or concerns at this time. Patient also reports that her mother had a history of a blood clot however was diagnosed with cancer. Uncle has factor 5 Leiden complaint: Shortness of breath Onset (ago): week(s) Radiation: non-radiation Severity: moderate Quality: aching Pain Consistency: constant Relieving factors: none Exacerbating factors: none Associated symptoms: denies other symptoms Treatments prior to arrival: none Related Data Home Medications ?Medication ?Instructions ?Recorded ?Confirmed budesonide-formoterol HFA 160 2 puff inhalation BID 04/04/22 02/01/25 mcg-4.5 mcg/actuation aerosol inhaler (Symbicort) esomeprazole magnesium 40 mg 40 mg PO DAILY 06/27/23 02/01/25 capsule,delayed release levothyroxine 125 mcg tablet 125 mcg PO DAILY 07/23/24 02/01/25 albuterol sulfate 90 mcg/actuation 2 puff inhalation Q6H PRN 09/04/24 02/01/25 aerosol inhaler (Ventolin HFA) Shortness Of Breath Or Wheezing calcitriol 0.25 mcg capsule 0.25 mcg PO DAILY 09/04/24 02/01/25 cetirizine 10 mg tablet (Zyrtec) 10 mg PO DAILY 09/08/24 02/01/25 montelukast 10 mg tablet 10 mg PO DAILY 09/08/24 02/01/25 (Singulair) acyclovir 200 mg capsule 200 mg PO QID 02/01/25 02/01/25 pregabalin 50 mg capsule (Lyrica) 50 mg PO TID 02/01/25 02/01/25 Previous Rx's ?Medication ?Instructions ?Recorded buspirone 5 mg tablet 5 mg PO BID 30 days #60 tabs 01/29/25 azithromycin 250 mg tablet See Rx Instructions PO .COMPLEX #6 02/16/25 tabs Allergies Allergy/AdvReac Type Severity Reaction Status Date / Time hydrocodone (HYDROCODONE) Allergy Intermediate HIVES Verified 02/01/25 10:21 amoxicillin (Augmentin) Allergy Unknown unknown Verified 02/01/25 10:21 chlorhexidine Allergy Unknown unknown Verified 02/01/25 10:21 clavulanic acid (Augmentin) Allergy Unknown unknown Verified 02/01/25 10:21 doxycycline Allergy Unknown anaphylaxis Verified 02/01/25 10:21 ibuprofen (IBUPROFEN) Allergy Unknown HIVES Verified 02/01/25 10:21 meperidine (Demerol) Allergy Unknown unknown Verified 02/01/25 10:21 morphine (MORPHINE) Allergy Unknown HIVES Verified 02/01/25 10:21 acetaminophen Allergy Anaphylaxis Verified 02/01/25 10:21 cephalexin (From Keflex) Allergy Anaphylaxis Verified 02/01/25 10:21 latex Allergy Unknown Verified 02/01/25 10:21 lidocaine (From LidoPatch) Allergy Rash Verified 04/04/25 13:37 menthol (From LidoPatch) Allergy Rash Verified 04/04/25 13:37 mupirocin Allergy Rash Verified 04/04/25 13:37 prednisone Allergy neuropathy Verified 02/01/25 10:21 oxycodone (From PERCOCET) AdvReac Unknown HIVES Verified 02/01/25 10:21 Review of Systems Review of Systems: Constitutional : No Fever, No Chills ENT/Mouth : No sore throat, No Rhinorrhea Eyes: No Eye Pain, No Swelling, No Redness Cardiovascular : + Chest Pain, + SOB Respiratory : + Cough, No Sputum Gastrointestinal : No Nausea, No Vomiting, No Diarrhea, No abdominal Pain Genitourinary : No Dysuria, No Hematuria Musculoskeletal : No joint pain, No Myalgias, No Joint Swelling Skin : No Skin Lesions Neuro : No Weakness, No Numbness, No Headache All other systems reviewed and are negative Yes all other systems are reviewed and are negative Constitutional: Constitutional: Reports as per [facility] Past Medical History Attestation statement: The following information was validated with the patient. Medical History Degenerative lumbar disc Neck pain with history of cervical spinal surgery Degenerative cervical disc Foraminal stenosis of cervical region Fibromuscular dysplasia of carotid artery Tinnitus Hearing loss Hernia GERD (gastroesophageal reflux disease) Thyroid cancer Elevated liver function tests Barretts esophagus Enlarged thyroid MVP (mitral valve prolapse) Fibroadenoma of left breast Renal cyst Hepatic hemangioma Hepatic adenoma Asthma Hemochromatosis Nodular thyroid disease Surgical History Hx of prior ablation treatment Hx of partial thyroidectomy History of esophagogastroduodenoscopy (EGD) H/O colonoscopy H/O thyroidectomy History of tonsillectomy and adenoidectomy History of section Family History Family History Father HTN (hypertension) Type 2 diabetes mellitus High cholesterol Ulcerative colitis Mother Pulmonary embolism Multiple myeloma Maternal Grandmother Diabetes mellitus CVD (cardiovascular disease) Maternal Grandfather CVD (cardiovascular disease) Paternal Grandfather Substance use disorder Paternal Grandmother Uterine cancer Maternal Uncle CVD (cardiovascular disease) Substance use disorder Sister No problems noted. Son No problems noted. Daughter No problems noted. Social History Social History Housing: House Alcohol intake: current Alcohol intake frequency: holidays/special occasions only Patient Tobacco Use Status: Never used Tobacco Smoked in Last 30 Days: No e-Cigarette/Vaping Use: Never Used Second Hand Smoke Exposure: No Use of substances other than those prescribed or required for medical reasons: No Advance Directives: No Advance Directives Information Provided: Yes Patient : No service: No Current occupational status: employed Current occupation: [employer] Current occupational exposures/hazards: No Cognitive needs: No Hearing needs: No Vision needs: No Physical Exam ED Vital Signs: Vital Signs - 24 hr 04/04/25 13:33 04/04/25 15:41 04/04/25 17:32 Temperature 97.6 F 98.2 F Pulse Rate 112 H 85 87 Respiratory Rate 20 22 H 18 Blood Pressure 123/60 117/72 Pulse Oximetry 95 93 95 Oxygen Delivery Method Room Air Room Air Room Air 04/04/25 18:15 Temperature Pulse Rate 92 Respiratory Rate 18 Blood Pressure Pulse Oximetry Oxygen Delivery Method BMI result Body Mass Index 24.8 Const General: cooperative, comfortable and no acute distress Orientation/consciousness: patient oriented x3 Limitations: no limitations [facility] Head: Yes normal to inspection, Yes normocephalic and Yes atraumatic Ears: hearing grossly normal bilaterally General nose exam: Normal external nose present Face and sinus: Yes normal facial exam Mouth: Normal oral and palatal mucosa present, oropharynx normal and moist mucous membranes Throat: Yes posterior oropharynx normal Eyes General: appearance normal, both eyes and all related structures Eyelids: Yes eyelids normal Conjunctivae: conjunctivae normal Sclerae: sclerae normal Pupils: Equal, round and reactive pupils present EOM: EOMs intact bilaterally Neck Other: Pt placed in soft cervical collar Neck: Yes normal visual inspection, Yes full ROM and Yes no lymphadenopathy Lymphatic: no lymphadenopathy noted Chest Chest palpation & inspection: normal inspection of the chest Resp Other: Lungs with faint expiratory wheeze at bilateral lung bases as well as left upper lung field. No crackles appreciated. Effort & Inspection: normal respiratory effort and able to speak in complete sentences Cardio Rate: regular rate Rhythm: regular rhythm Heart sounds: S1 normal heart sound present and S2 normal heart sound present GI Inspection: Yes normal to inspection Skin General skin exam: no rashes or lesions noted Trauma: no lacerations or abrasions Wounds: no wounds Neuro General: patient oriented x3 and moves all extremities Cranial nerves: Yes Equal, round and reactive pupils present Extrem General: Yes normal to inspection Right upper extremity: normal to inspection Left upper extremity: normal to inspection Right lower extremity: normal to inspection Left lower extremity: normal to inspection Course Course Course Narrative: This is a Rapid Medical Examination (RME) performed by Toño Corral PA-C in triage. Full HPI, ROS, assessment and treatment plan per primary provider in the Main ED. Hx: 49 yo F hx asthma here for eval of SOB and cough. diagnosed with RSV on Saturday (7 days ago). reports difficulty breathing and cough, her prednisone has been increased without improvement, outpatient snapper on is worried about possible post infectious PE - sent in for rule out. hx anterior spinal fusion 7 weeks ago - in soft collar. PE/vitals: 94% on RA, bronchospastic cough Plan: labs, ekg, cxr Medications Administered Discontinued Medications Generic Name Dose Route Start Last Admin Trade Name Freq PRN Reason Stop Dose Admin Albuterol Sulfate 2.5 mg/ 0 mg 04/04/25 18:09 04/04/25 18:14 Albuterol/Ipratropium 3 ml INHALE 04/04/25 18:10 5 dose ONCE ONE Administration Magnesium Sulfate 2 gm in 50 mls @ 150 mls/hr 04/04/25 17:55 04/04/25 19:38 Magnesium Sulfate/H2o IV 04/04/25 18:14 Infused ONCE ONE Infusion Iohexol 100 ml 04/04/25 17:57 04/04/25 17:58 Iohexol 350 Mg/Ml 100 Ml Infus..Btl IV 04/04/25 17:58 65 ml ONCE ONE Administration Medical Decision Making Medical Decision Making MDM Narrative: This is a 49-year-old female, with a past medical history of thyroid cancer s/p thyroidectomy 2022, cervical spine fusion 7 wks ago, asthma, hemochromatosis, HTN, HLD, MVP, fibromuscular dysplasia, pre-diabetes, with a recent anterior spinal fusion 7 weeks ago. On arrival, patient tachycardic at 112bpm oxygen saturation 95% on room air. Lungs with faint expiratory wheeze noted at bilateral lung bases as well as left upper lung wade. Patient is presenting with recent RSV infection on high dose steroids now with worsening dyspnea in a, wheezing, nocturnal desaturations and chest and back pain. High suspicion for post infectious complication including pulmonary embolism, other differentials including asthma exacerbation, pneumonia, steroid responsive reactive airway disease. Given worsening shortness of breath 2 weeks post URI, tachycardia with mild exertion with O2 saturation dropping and new pleuritic chest/back pain, we will obtain a CT angio of the chest to rule out PE. Will obtain CBC, BMP, coag panel. We will continue cardiac and SpO2 monitoring while in the ED. Given that patient has already took methylprednisolone 40 milligrams by mouth today, I am holding off on IV steroids at this time. Will medicate with single 2 gram of IV magnesium dose. We will also have Respiratory therapy come and assess patient as patient does have slight expiratory wheeze noted. 6:05 PM 04/04/2025 (Beverley Lao PA-C): Labs revealing slight leukocytosis at 11.1, chemistry revealing no significant electrolyte derangement, troponin less than 2.7. This does not appear to be cardiac in etiology therefore 2nd troponin not indicated at this time. Chest x-ray was obtained prior to my evaluation, no pneumonia seen. EKG revealing normal sinus rhythm at a ventricular rate of 86 beats per minute, IL interval 174, QT QTC 350/418, she does have an incomplete right bundle-branch block, no STEMI. Patient has a history of an incomplete right bundle-branch block seen on previous. CT angio as well as IV magnesium and ED bronch protocol pending at this time. We will continue to closely monitor. We will also perform walking O2 sat. 6:31 PM 04/04/2025 (Beverley Lao PA-C): Patient reports that her surgeon just got into contact with her stating to have repeat cervical spine x-rays given coughing, would like to assess to ensure that C-spine looks okay. Recommending uploading to the [facility] portal so he can assess these images once they were performed 6:59 PM 04/04/2025 (Beverley Lao PA-C): Cervical spinal x-ray revealing interval ACDF C4 through C6, no evidence of hardware failure. Uploaded the images to [facility] per patient's surgeon. We are still awaiting flu, COVID, and RSV swab. Patient is still has wheezes noted in bilateral lower lung wade. Sign-out given to my colleague, awaiting walking O2 sat, viral swabs, and overall symptomatic improvement. If patient continues to have shortness of breath, or walking O2 saturation desaturates, patient may need to be admitted for further management. Differential Diagnosis Differential Diagnoses: The differential diagnosis associated with the presentation includes See above Admission/Observation Consideration of admission/observation: Escalation of care including admission/observation considered Lab Data [facility] Lab Attestation statement: I reviewed the patient's lab results. See [facility] 04/04/25 13:57 04/04/25 13:57 Labs: Lab Results 04/04/25 04/04/25 Range/Units 13:57 18:32 WBC 11.1 H (4.8-10.8) X10*3/uL RBC 4.49 (4.20-5.50) X10*6/uL Hgb 13.9 (12.0-16.0) g/dl Hct 40.4 (37.0-47.0) % MCV 90.0 (80.0-98.0) fL MCH 31.0 (27.0-33.0) pg MCHC 34.4 (31.0-35.0) g/dl RDW 12.9 (11.0-16.0) % Plt Count 388 D (160-400) X10*3/uL MPV 9.6 (9.4-12.3) fL Immature Gran % (Auto) 1.5 H (0.0-0.4) % Neut % (Auto) 78.7 H (45-73) % Lymph % (Auto) 13.1 L (20-40) % [place] % (Auto) 6.4 (2-11) % Eos % (Auto) 0.1 (0-4) % Baso % (Auto) 0.2 (0-2) % Lymph # (Auto) 1.5 (1.2-4.9) X10*3/uL [place] # (Auto) 0.7 (0.1-1.2) X10*3/uL Eos # (Auto) 0.0 (0.0-0.4) X10*3/uL Baso # (Auto) 0.0 (0.0-0.2) X10*3/uL Abs Immat Gran (auto) 0.17 H (0.00-0.03) X10*3/uL Absolute Neuts (auto) 8.7 H (2.0-8.3) x10*3/uL Absolute Nucleated RBC 0.000 (0.0-0.012) X10*3/uL Nucleated RBC % (auto) 0.0 (0.0-0.2) /100WBC PT 12.3 (11.2-13.5) SEC INR 1.0 (0.9-1.1) Sodium 140 (135-145) mmol/L Potassium 4.2 (3.3-5.1) mmol/L Chloride 107 (96-108) mmol/L Carbon Dioxide 24 (22-29) mmol/L Anion Gap 13 (12-20) BUN 17 H (9-16) mg/dL Creatinine 0.63 (0.5-1.4) mg/dL Estim Creat Clear Calc 97.9 Estimated GFR > 60 Random Glucose 117 H (60-115) mg/dL Calcium 9.1 (8.4-10.2) mg/dL Magnesium 2.3 (1.6-2.6) mg/dL Total Bilirubin 0.3 (0.0-1.0) mg/dL AST 17 (5-31) U/L ALT 26 (0-31) U/L Alkaline Phosphatase 62 (39-117) U/L Troponin I High Sens < 2.7 (<3.5-17.0) ng/L NT-Pro-B Natriuret Pep 54.2 (<300) pg/mL Total Protein 6.8 (6.5-8.0) g/dL Albumin 4.3 (3.5-5.0) g/dL Influenza Type A (PCR) NEGATIVE (Negative) Influenza Type B (PCR) NEGATIVE (Negative) RSV RNA Qual (PCR) POSITIVE A (Negative) SARS-CoV-2 RNA (RT-PCR) NEGATIVE (Negative) Independent Interpretation I performed an independent interpretation of an: EKG Interpretation: EKG revealing normal sinus rhythm at a ventricular rate of 86 beats per minute, IL interval 174, QT QTC 350/418, she does have an incomplete right bundle-branch block, no STEMI. Patient has a history of an incomplete right bundle-branch block seen on previous. Radiology Impression Discussion of test interpretation with radiology: I have reviewed the radiologist's reading. Radiologist Impression: Reason for Exam: cough, sob CLINICAL HISTORY: SOB 2 view chest x-ray. Comparison: None Findings: No consolidation or effusion. Cardiac and mediastinal contours are unremarkable. Bones unremarkable. Impression: 1. No acute pulmonary disease. This document has been electronically signed by: iMki Leigh MD on 04/04/2025 14:28:22 Dictated By: Miki Leigh MD CLINICAL HISTORY: pleuritic CP, recent surgery, hx of cancer Exam: Contrast-enhanced chest CT pulmonary angiogram with multiplanar reformats. Comparison: None. Findings: There is no pulmonary embolism or thoracic aortic dissection. No mediastinal or hilar masses or adenopathy. No pleural or pericardial effusions. Images below the diaphragms reveal no acute abnormalities. Lungs are free of focal consolidation. No pulmonary nodules or parenchymal lesions. Airways are patent. No pneumothorax. There is very minimal pulmonary mosaic attenuation common nonspecific although may be seen in small airways disease. Osseous structures reveal no destructive osseous lesions. Impression: 1. No pulmonary embolism, aortic dissection or pulmonary consolidation. Very minimal pulmonary mosaic attenuation as described above. This document has been electronically signed by: Miki Leigh MD on 04/04/2025 18:32:56 Dictated By: Miki Leigh MD CLINICAL HISTORY: recent anterior spinal fusion --- Additional Notes or Special Instructions: has been coughing, increased pain 3 views cervical spine Comparison: 07/27/2024 Findings: Since prior exam patient has undergone ACDF C4-C6. Anterior fusion plate and intervertebral grafts are present. Hardware and vertebral alignment appear intact with no evidence of hardware failure. Remaining intervertebral disc heights appear maintained. There is similar slight vertebral body spurring at C6-7. Prevertebral soft tissues normal. Lung apices are unremarkable. Impression: 1. Interval ACDF C4-C6. No evidence of hardware failure. This document has been electronically signed by: Miki Leigh MD on 04/04/2025 18:48:35 Dictated By: Miki Leigh MD Discharge Plan Discharge Clinical Impression: Respiratory syncytial virus (RSV), Tachypnea Prescriptions: No Action buspirone 5 mg tablet 5 mg PO BID 30 Days Qty: 60 2RF azithromycin 250 mg tablet See Rx Instructions PO .COMPLEX Qty: 6 0RF Rx Instructions: For 250 mg dose pack: take 500 mg today (day 1), then 250 mg for 4 days (days 2-5) PO albuterol sulfate [Ventolin HFA] 90 mcg/actuation Hfa Aerosol Inhaler 2 puff INHALATION Q6H PRN (Reason: Shortness Of Breath Or Wheezing) calcitriol 0.25 mcg capsule 0.25 mcg PO DAILY cetirizine [Zyrtec] 10 mg Tablet 10 mg PO DAILY montelukast [Singulair] 10 mg Tablet 10 mg PO DAILY budesonide-formoterol [Symbicort] 160-4.5 mcg/actuation HFA aerosol inhaler 2 puff inhalation BID esomeprazole magnesium 40 mg capsule,delayed release(DR/EC) 40 mg PO DAILY levothyroxine 125 mcg tablet 125 mcg PO DAILY pregabalin [Lyrica] 50 mg capsule 50 mg PO TID acyclovir 200 mg capsule 200 mg PO QID Print Language: Arabic
--- NOTE | 2025-04-04 13:37 | ECG_ITS ---
Test Reason : sob Blood Pressure : */* mmHG Vent. Rate : 86 BPM Atrial Rate : 86 BPM P-R Int : 174 ms QRS Dur : 96 ms QT Int : 350 ms P-R-T Axes : 48 -44 24 degrees QTcB Int : 418 ms Normal sinus rhythm Left axis deviation Low voltage QRS Incomplete right bundle branch block Inferior infarct , age undetermined Abnormal ECG No previous ECGs available Referred By: Robina Corral Electronically Signed By: Noah Farah
[2025-04-04 14:03] LABS: MANUAL DIFF FLAG NO
[2025-04-04 14:13] LABS: INTERNATIONAL NORM RATIO 1.0 (0.9-1.1); Prothrombin Time 12.3 SEC (11.2-13.5)
[2025-04-04 14:16] LABS: Alanine Aminotransferase 26 U/L (0-31); Albumin Level 4.3 g/dL (3.5-5.0); Alkaline Phosphatase 62 U/L (39-117); Anion Gap 13 (12-20); Aspartate Amino Transferase 17 U/L (5-31); Blood Urea Nitrogen 17 mg/dL (9-16); Calcium 9.1 mg/dL (8.4-10.2); Carbon Dioxide 24 mmol/L (22-29); Chloride 107 mmol/L (96-108); Creatinine Clr Calc Pharmacy 97.9; Estimated Glomerular Filt Rate > 60; Magnesium 2.3 mg/dL (1.6-2.6); Potassium 4.2 mmol/L (3.3-5.1); Sodium 140 mmol/L (135-145); Total Protein 6.8 g/dL (6.5-8.0)
[2025-04-04 14:24] LABS: Troponin-I High Sensitivity < 2.7 ng/L (<3.5-17.0)
[2025-04-04 14:26] LABS: Hematocrit 40.4 % (37.0-47.0); Hemoglobin 13.9 g/dl (12.0-16.0); Imm Gran Abs Auto 0.17 X10*3/uL (0.00-0.03); Imm Gran Pct Auto 1.5 % (0.0-0.4); Lymphocytes Absolute Auto 1.5 X10*3/uL (1.2-4.9); Mean Corpuscular HGB Conc 34.4 g/dl (31.0-35.0); Mean Corpuscular Hemoglobin 31.0 pg (27.0-33.0); Mean Corpuscular Volume 90.0 fL (80.0-98.0); NRBC Abs Auto 0.000 X10*3/uL (0.0-0.012); NRBC Pct Auto 0.0 /100WBC (0.0-0.2); Platelet Count 388 X10*3/uL (160-400); Red Blood Count 4.49 X10*6/uL (4.20-5.50); White Blood Count 11.1 X10*3/uL (4.8-10.8)
[2025-04-04 15:41] VITALS: PULSE 85; RESP 22; O2SAT 93
--- OUTSIDE RECORDS SUMMARY | 2025-04-04 16:48 | XMS_ITS | Encounter Summary ---
Author Organization [facility] Address [address] [place] [id number] Care Team Providers Care Gi Technician Name Role Phone Brett Sharma NP Primary Care Provider + [phone] Isis Young RN Unavailable Tip Campos MD Unavailable [phone] Magnus Perez MD Unavailable [phone] System, Provider Not In Unavailable Unavaila Miki Diana MD Unavailable [phone] Raúl Pike MD Unavailable Jorge Moreno DO Unavailable [phone] Arturo Bunn MD Unavailable Leatha Mc Unavailable [phone] Encounter Details Date Type Department Care Team (Late st Contact Info) Description 02/24/2025 Scanned Document [facility] Neurosurgery [address] [phone] Tip Campos MD [address] [place] [address] Social History Tobacco Use Types Packs/Day [...] any time in the past [address] [facility], were you homeless or living in a long term (including now)? No 02/05/2025 [facility] Utilities Answer Date Recorded In [...] Description 04/26/2025 1:00 PM EST Office Visit [facility] Plastic & Reconstructive Surgery [address] [place] [address] Clyde Martin PA [address] [facility] [address] [place] [address] 06/01/2025 10:00 AM EST Office Visit [facility] Neurosurgery [place] [address] [phone] Samara Mendoza PA-C [address] [phone] documented as of this encounter Goals Goal Patient Goal Type Associated Problems Recent Progress Patient-Stated? Author ST LTG 1 Speech Therapy No Zeina Messer CCC-CORNICE MAKER Note: Pt will tolerate least restrictive diet without s/s aspiration. ST STG 1 Speech Therapy No Zeina Messer CCC-CORNICE MAKER Note: Pt will complete an instrumental swallowing evaluation within 2 weeks. Additional goals to be set as indicated. documented as of this encounter Visit Diagnoses Not on filedocumented in this encounter Care Teams Gi Technician Relationship Specialty Start Date End Date Brett Sharma NP [address] [place] [address] PCP - General Family Medicine 03/03/24 Isis Young RN [address] [place] [address] Nurse Navigator Surgery, Neurosurgery 01/25/25 Tip Campos MD [address] [place] [id number] Surgery, Neurosurgery 02/01/25 Magnus Perez MD [address] [place] [phone] Cardiovascular Disease 02/01/25 System, Provider Not In [address] [place] [phone] Hematology Oncology 02/01/25 Miki Blackwood MD [address] [place] [address] Endocrinology 02/01/25 Raúl Pike MD [address] [place] [address] Gastroenterology 02/01/25 Jorge Moreno DO [address] [facility] [place] [place] [address] [place] [address] Immunology 02/01/25 Arturo Bunn MD [address] [place] [address] Otolaryngology 02/01/25 Leatha Mc PA [address] [place] [address] [place] [phone] Physician Agricultural Education Teacher Surgery, Neurosurgery 02/05/25 documented as of this encounter
--- OUTSIDE RECORDS SUMMARY | 2025-04-04 16:48 | XMS_ITS | Encounter Summary ---
Author Organization [facility] Address [address] [place] [address] Care Team Providers Care Snuff Packing Machine Operator Name Role Phone Brett Sharma NP Primary Care Provider + [phone] Isis Young RN Unavailable [phone] Tip Campos MD Unavailable [phone] Magnus Perez MD Unavailable [phone] System, Provider Not In Unavailable Unavaila Miki Diana MD Unavailable [phone] Raúl Pike MD Unavailable Jorge Moreno DO Unavailable [phone] Arturo Bunn MD Unavailable Leatha Mc Unavailable [phone] Encounter Details Date Type Department Care Team (Late st Contact Info) Description 03/19/2025 Scanned Document [facility] Neurosurgery [address] [address] Tip Campos MD [address] [place] [address] Social History Tobacco Use Types Packs/Day [...] any time in the past 12 m [facility], were you homeless or living in a long term (including now)? No 02/05/2025 [facility] Utilities Answer Date Recorded In [...] Description 04/26/2025 1:00 PM EST Office Visit [facility] Plastic & Reconstructive Surgery [address] [place] [address] Clyde Martin PA 399 [facility] 210 [place] [address] 06/01/2025 10:00 AM EST Office Visit [facility] Neurosurgery [place] [address] [phone] Samara Mendoza PA-C [address] [address] documented as of this encounter Goals Goal Patient Goal Type Associated Problems Recent Progress Patient-Stated? Author ST LTG 1 Speech Therapy No Zeina Messer CCC-KITCHENHAND Note: Pt will tolerate least restrictive diet without s/s aspiration. ST STG 1 Speech Therapy No Zeina Messer CCC-KITCHENHAND Note: Pt will complete an instrumental swallowing evaluation within 2 weeks. Additional goals to be set as indicated. documented as of this encounter Visit Diagnoses Not on filedocumented in this encounter Care Teams Snuff Packing Machine Operator Relationship Specialty Start Date End Date Brett Sharma NP 262 [place] [address] PCP - General Family Medicine 03/03/24 Isis Young RN 80 [place] [address] Nurse Navigator Surgery, Neurosurgery 01/25/25 Tip Campos MD [address] [place] [address] Surgery, Neurosurgery 02/01/25 Magnus Perez MD [address] [place] [phone] Cardiovascular Disease 02/01/25 System, Provider Not In [address] [place] [address] Hematology Oncology 02/01/25 Miki Blackwood MD 15 [place] [address] Endocrinology 02/01/25 Raúl Pike MD [address] [place] [address] Gastroenterology 02/01/25 Jorge Moreno DO 269 [facility] 201 [place] [address] Immunology 02/01/25 Arturo Bunn MD [address] [place] [address] Otolaryngology 02/01/25 Leatha Mc PA [address] [place] [address] [place] [address] Physician Batter Mixer Helper Surgery, Neurosurgery 02/05/25 documented as of this encounter
--- OUTSIDE RECORDS SUMMARY | 2025-04-04 16:48 | XMS_ITS | Encounter Summary ---
Author Organization [facility] Address [address] [place] [address] Care Team Providers Care Bus Aide Name Role Phone Brett Sharma NP Primary Care Provider + [phone] Isis Young RN Unavailable Tip Campos MD Unavailable [phone] Magnus Perez MD Unavailable [phone] System, Provider Not In Unavailable Unavaila Miki Diana MD Unavailable [phone] Raúl Pike MD Unavailable Jorge Moreno DO Unavailable [phone] Arturo Bunn MD Unavailable Leatha Mc Unavailable [phone] Encounter Details Date Type Department Care Team (Late st Contact Info) Description 03/09/2025 Scanned Document [facility] Neurosurgery [address] [address] Leatha Mc PA [address] [address] Social History Tobacco Use Types [...] any time in the past 12 m [facility], were you homeless or living in a assisted (including now)? No 02/05/2025 [facility] Utilities Answer Date Recorded In the [...] Description 04/26/2025 1:00 PM EST Office Visit [facility] Plastic & Reconstructive Surgery [address] [place] [address] Clyde Martin PA 399 [facility] 210 [place] [address] 06/01/2025 10:00 AM EST Office Visit [facility] Neurosurgery [place] [address] [phone] Samara Mendoza PA-C [address] [address] documented as of this encounter Goals Goal Patient Goal Type Associated Problems Recent Progress Patient-Stated? Author ST LTG 1 Speech Therapy No Zeina Messer CCC-WHEELAGE CLERK Note: Pt will tolerate least restrictive diet without s/s aspiration. ST STG 1 Speech Therapy No Zeina Messer CCC-WHEELAGE CLERK Note: Pt will complete an instrumental swallowing evaluation within 2 weeks. Additional goals to be set as indicated. documented as of this encounter Visit Diagnoses Not on filedocumented in this encounter Care Teams Bus Aide Relationship Specialty Start Date End Date Brett Sharma NP 262 [place] [address] PCP - General Family Medicine 03/03/24 Isis Young RN 80 [place] [address] Nurse Navigator Surgery, Neurosurgery 01/25/25 Tip Campos MD [address] [place] [address] Surgery, Neurosurgery 02/01/25 Magnus Perez MD [address] [place] [phone] Cardiovascular Disease 02/01/25 System, Provider Not In [address] [place] [phone] Hematology Oncology 02/01/25 Miki Blackwood MD 15 [place] [address] Endocrinology 02/01/25 Raúl Pike MD [address] [place] [address] Gastroenterology 02/01/25 Jorge Moreno DO 269 [facility] 201 [place] [address] Immunology 02/01/25 Arturo Bunn MD [address] [place] [address] Otolaryngology 02/01/25 Leatha Mc PA [address] [place] [address] [place] [address] Physician Runner Man Surgery, Neurosurgery 02/05/25 documented as of this encounter
--- OUTSIDE RECORDS SUMMARY | 2025-04-04 16:48 | XMS_ITS | Clinical Summary ---
Author Organization [facility] Address [address] [place] [address] Phone Care Team Providers Care First Officer And Flight Instructor Name Role Phone Brett Sharma NP Primary Care Provider Allergies Active Allergy Reactions Criticality Noted Date Comments Crapo Oil Rash Low 04/04/2017 Amoxicillin-Pot Clavulanate Anaphylaxis High 10/19/2013 Cinnamon Unknown Medium 12/31/2023 Doxycycline Anaphylaxis High 05/03/2017 Flavoring Agent (Bulk) Rash Low 04/04/2017 Hydrocodone-Acetaminophen Swelling 05/03/2017 Ibuprofen Anaphylaxis High 12/31/2023 Latex Rash Low 05/21/2019 Meperidine Swelling 05/03/2017 Morphine 09/12/2021 Other Rash Low 04/04/2017 turnips Oxycodone-Acetaminophen Rash,Swelling Low 8 Prednisone Medium 08/28/2022 Other Reaction(s): Other (See Comments) [place] Hives Medium 04/04/2017 Tramadol Itching Low 09/12/2023 [...] care for your loved ones. For example, early childhood worker or elderly care for an older adult? [...] AM EST Sexual Orientation Not on file Last Filed Vital Signs [...] EST Office Visit Obstetrics and Gynecology - [address] [place] [phone] Faustina Weaver MD [address] [facility] 1026 [place] [address] Health Maintenance Due Date Last Done Comments Breast Cancer Screening 1976 Colorectal Cancer Screening: Colonoscopy 1976 Hepatitis B Vaccines (1 of 3 - 19+ 3-dose series) 09/14/1995 COVID-19 Vaccine ( - season) 2024 01/29/2024, 01/27/2023, 01/17/2022, Additional history [...] Results * Cervical Cancer Screening: HPV (12/31/2023) [facility] Cervical Cancer Screening: HPV Negative, Abstracted Historical Provider HEALTH MAINTENANCE Final Result * HIV Screening (10/17/2022) [facility] HIV Screening Abstracted [facility] Provider HEALTH MAINTENANCE Final Result * Hepatitis C Screening (10/17/2022) [facility] Hepatitis C Screening Abstracted [facility] Provider HEALTH MAINTENANCE Final Result from Last 3 Months or Most Recently Relevant to Health Maintenance Insurance Care Teams First Officer And Flight Instructor Relationship Specialty Start Date End Date Brett Sharma NP 262 [place], [place] PCP - General Family Medicine 09/11/21
--- OUTSIDE RECORDS SUMMARY | 2025-04-04 16:48 | XMS_ITS | Encounter Summary ---
Author Organization [facility] Address [address] [place] [address] Care Team Providers Care Vest Presser Name Role Phone Brett Sharma NP Primary Care Provider + [phone] Isis Young RN Unavailable Tip Campos MD Unavailable [phone] Magnus Perez MD Unavailable [phone] System, Provider Not In Unavailable Unavaila Miki Diana MD Unavailable [phone] Raúl Pike MD Unavailable Jorge Moreno DO Unavailable Arturo Bunn MD Unavailable Leatha Mc Unavailable [phone] Encounter Details Date Type Department Care Team (Late st Contact Info) Description 02/03/2025 Scanned Document [facility] Neurosurgery [place] 85 [facility] [address] [place] [address] Samara Mendoza PA-C 85 [facility] Joshua [address] [place] [address] Social History Tobacco Use Types Packs/Day [...] any time in the past 12 m [facility], were you homeless or living in a nursing home (including now)? No 02/05/2025 [facility] Utilities Answer Date Recorded In the [...] Description 04/26/2025 1:00 PM EST Office Visit [facility] Plastic & Reconstructive Surgery [place] 399 [facility] 210 [place] [address] Clyde Martin PA [address] [place] [address] 06/01/2025 10:00 AM EST Office Visit [facility] Neurosurgery [place] 85 [facility] 1003 [place] [phone] Samara Mendoza PA-C 85 [facility] [address] [place] [phone] documented as of this encounter Visit Diagnoses Not on filedocumented in this encounter Care Teams Vest Presser Relationship Specialty Start Date End Date Brett Sharma NP [address] [place] [address] PCP - General Family Medicine 03/03/24 Isis Young RN 80 [place] [address] Nurse Navigator Surgery, Neurosurgery 01/25/25 Tip Campos MD 85 [facility] 1003 [place] [address] Surgery, Neurosurgery 02/01/25 Magnus Perez MD [address] [place] [phone] Cardiovascular Disease 02/01/25 System, Provider Not In [address] [place] [address] Hematology Oncology 02/01/25 Miki Blackwood MD [address] [place] [address] Endocrinology 02/01/25 Raúl Pike MD [address] [place] [address] Gastroenterology 02/01/25 Jorge Moreno DO [address] [place] [address] 201 [place] [address] Immunology 02/01/25 Arturo Bunn MD [address] [place] [address] Otolaryngology 02/01/25 Leatha Mc PA 85 [facility] 1003 [place] [address] Physician Safety Counselor Surgery, Neurosurgery 02/05/25 documented as of this encounter
--- OUTSIDE RECORDS SUMMARY | 2025-04-04 16:48 | XMS_ITS | Encounter Summary ---
Author Organization [facility] Address [address] [place] [address] Care Team Providers Care Ski Molder Name Role Phone Brett Sharma NP Primary Care Provider + [phone] Isis Young RN Unavailable Tip Campos MD Unavailable [phone] Magnus Perez MD Unavailable [phone] System, Provider Not In Unavailable Unavaila Miki Diana MD Unavailable [phone] Raúl Pike MD Unavailable [phone] Jorge Moreno DO Unavailable [phone] Arturo Bunn MD Unavailable Leatha Mc Unavailable [phone] Encounter Details Date Type Department Care Team (Late st Contact Info) Description 02/17/2025 Scanned Document [facility] Neurosurgery [address] [address] Leatha Mc PA [address] [address] Social History Tobacco Use Types [...] any time in the past 12 m [facility], were you homeless or living in a assisted (including now)? No 02/05/2025 [facility] Utilities Answer Date Recorded In the past [...] Description 04/26/2025 1:00 PM EST Office Visit [facility] Plastic & Reconstructive Surgery [address] [place] [address] Clyde Martin PA 399 [facility] 210 [place] [address] 06/01/2025 10:00 AM EST Office Visit [facility] Neurosurgery [place] 85 [facility] [address] [place] [phone] Samara Mendoza PA-C [address] [address] documented as of this encounter Visit Diagnoses Not on filedocumented in this encounter Care Teams Ski Molder Relationship Specialty Start Date End Date Brett Sharma NP 262 [place] [address] PCP - General Family Medicine 03/03/24 Isis Young, DANE 80 [place] [address] Nurse Navigator Surgery, Neurosurgery 01/25/25 Tip Campos MD [address] [place] [address] Surgery, Neurosurgery 02/01/25 Magnus Perez MD [address] [place] [phone] Cardiovascular Disease 02/01/25 System, Provider Not In [address] [place] [address] Hematology Oncology 02/01/25 Miki Blackwood MD [address] [place] [address] Endocrinology 02/01/25 Raúl Pike MD [address] [place] [address] 102 [place] [address] Gastroenterology 02/01/25 Jorge Moreno DO 269 [facility] 201 [place] [address] Immunology 02/01/25 Arturo Bunn MD [address] [place] [address] Otolaryngology 02/01/25 Leatha Mc PA [address] [place] [address] 1003 [place] [address] Physician Sound Engineer Surgery, Neurosurgery 02/05/25 documented as of this encounter
--- OUTSIDE RECORDS SUMMARY | 2025-04-04 16:48 | XMS_ITS | Encounter Summary ---
Author Organization [facility] Address 100 [place] [address] Care Team Providers Care Template Fitter Name Role Phone Brett Sharma NP Primary Care Provider [phone] Isis Young RN Unavailable Tip Campos MD Unavailable Magnus Perez MD Unavailable [phone] System, Provider Not In Unavailable Unavaila Miki Diana MD Unavailable [phone] Raúl Pike MD Unavailable Jorge Moreno DO Unavailable [phone] Arturo Bunn MD Unavailable Leatha Mc Unavailable [phone] Encounter Details Date Type Department Care Team (Late st Contact Info) Description 02/03/2025 Results Follow-Up [facility] [address] [place] [address] [address] [place] [address] Ginny White PA [address] [place] [address] [address] [place] [address] Social History Tobacco Use Types [...] any time in the past 12 m [facility], were you homeless or living in a jail (including now)? No 02/05/2025 [facility] Utilities Answer Date Recorded In the past 12 months has th e [employer], gas, oil, or water [employer] threatened to shut off services in your [...] Description 04/26/2025 1:00 PM EST Office Visit [facility] Plastic & Reconstructive Surgery [address] [address] Clyde Martin PA [address] [place] [address] 06/01/2025 10:00 AM EST Office Visit [facility] Neurosurgery [place] [address] [phone] Samara Mendoza PA-C [address] [phone] documented as of this encounter Visit Diagnoses Not on filedocumented in this encounter Care Teams Template Fitter Relationship Specialty Start Date End Date Brett Sharma NP [address] [place] [address] PCP - General Family Medicine 03/03/24 Isis Young RN 80 [place] [address] Nurse Navigator Surgery, Neurosurgery 01/25/25 Tip Campos MD [address] [place] 650413 [place] [address] Surgery, Neurosurgery 02/01/25 Magnus Perez MD [address] [place] [phone] Cardiovascular Disease 02/01/25 System, Provider Not In [address] [place] [address] Hematology Oncology 02/01/25 Miki Blackwood MD [address] [place] [address] Endocrinology 02/01/25 Raúl Pike MD [address] [place] [address] Gastroenterology 02/01/25 Jorge Moreno DO 269 [facility] 201 [place] [address] Immunology 02/01/25 Arturo Bunn MD [address] [place] [address] Otolaryngology 02/01/25 Leatha Mc PA 85 [facility] 1003 [place] [address] Physician Surveillance Supervisor Surgery, Neurosurgery 02/05/25 documented as of this encounter
--- OUTSIDE RECORDS SUMMARY | 2025-04-04 16:48 | XMS_ITS | Encounter Summary ---
Author Organization [facility] Address [address] [place] [address] Care Team Providers Care Filter Plant Supervisor Name Role Phone Pcp, No Primary Care Provider Unavailabl Brett Iqbal NP Primary Care Provider [phone] Isis Young RN Unavailable [phone] Tip Campos MD Unavailable Magnus Perez MD Unavailable System, Provider Not In Unavailable Unavaila Miki Diana MD Unavailable [phone] Raúl Pike MD Unavailable [phone] Jorge Moreno DO Unavailable Arturo Bunn MD Unavailable Leatha Mc Unavailable [phone] Encounter Details Date Type Department Care Team (Late st Contact Info) Description 02/27/2024 Scanned Document [facility] Plastic & Reconstructive Surgery [address] 210 [place] [phone] Michael Long MD [address] [place] [address] 210 [place] [address] Social History Tobacco Use Types Packs/Day Years [...] Description 04/26/2025 1:00 PM EST Office Visit [facility] Plastic & Reconstructive Surgery [address] [address] Clyde Martin PA [address] [place] [address] 06/01/2025 10:00 AM EST Office Visit [facility] Neurosurgery [place] [address] [phone] Samara Mendoza PA-C [address] [address] documented as of this encounter Visit Diagnoses Not on filedocumented in this encounter Care Teams Filter Plant Supervisor Relationship Specialty Start Date End Date Pcp, No PCP - General General Medicine 03/04/19 03/02/24 Brett Sharma NP [address] [place] [address] PCP - General Family Medicine 03/03/24 Isis Young RN 80 [place] [address] Nurse Navigator Surgery, Neurosurgery 01/25/25 Tip Campos MD [address] [address] Surgery, Neurosurgery 02/01/25 Magnus Perez MD [address] [place] [phone] Cardiovascular Disease 02/01/25 System, Provider Not In [address] [place] [address] Hematology Oncology 02/01/25 Miki Blackwood MD [address] [place] [address] Endocrinology 02/01/25 Raúl Pike MD [address] [place] [address] Gastroenterology 02/01/25 Jorge Moreno DO [address] [place] [address] Immunology 02/01/25 Arturo Bunn MD [address] [place] [address] Otolaryngology 02/01/25 Leatha Mc PA [address] [address] Physician People Greeter Surgery, Neurosurgery 02/05/25 documented as of this encounter
--- OUTSIDE RECORDS SUMMARY | 2025-04-04 16:48 | XMS_ITS | Encounter Summary ---
Author Organization [facility] Address [address] [place] [address] Care Team Providers Care Shoe Repair Supervisor Name Role Phone Brett Sharma NP Primary Care Provider + [phone] Isis Young RN Unavailable Tip Campos MD Unavailable Magnus Perez MD Unavailable System, Provider Not In Unavailable Unavaila Miki Diana MD Unavailable [phone] Raúl Pike MD Unavailable Jorge Moreno DO Unavailable Arturo Bunn MD Unavailable Leatha Mc Unavailable [phone] Encounter Details Date Type Department Care Team (Late st Contact Info) Description 04/21/2024 Scanned Document [facility] Plastic & Reconstructive Surgery [address] [place] [address] Mary Solomon LPN [address] [address] Social History Tobacco Use Types Packs/Day Years [...] Description 04/26/2025 1:00 PM EST Office Visit [facility] Plastic & Reconstructive Surgery [place] [address] [address] Clyde Martin PA [address] [address] 06/01/2025 10:00 AM EST Office Visit [facility] Neurosurgery [place] [address] [phone] Samara Mendoza PA-C [address] [phone] documented as of this encounter Visit Diagnoses Not on filedocumented in this encounter Care Teams Shoe Repair Supervisor Relationship Specialty Start Date End Date Brett Sharma NP [address] [place] [address] PCP - General Family Medicine 03/03/24 Isis Young RN 80 [place] [address] Nurse Navigator Surgery, Neurosurgery 01/25/25 Tip Campos MD [address] [address] Surgery, Neurosurgery 02/01/25 Magnus Perez MD [address] [place] [phone] Cardiovascular Disease 02/01/25 System, Provider Not In [address] [place] [phone] Hematology Oncology 02/01/25 Miki Blackwood MD [address] [place] [address] Endocrinology 02/01/25 Raúl Pike MD [address] [place] [address] Gastroenterology 02/01/25 Jorge Moreno DO 269 [facility] 201 [place] [address] Immunology 02/01/25 Arturo Bunn MD [address] [place] [address] Otolaryngology 02/01/25 Leatha Mc PA [address] [place] [address] Physician Reroller Hand Surgery, Neurosurgery 02/05/25 documented as of this encounter
--- OUTSIDE RECORDS SUMMARY | 2025-04-04 16:48 | XMS_ITS | Encounter Summary ---
Author Organization [facility] Address [address] [place] [address] Care Team Providers Care Support Merchandiser Name Role Phone Brett Sharma NP Primary Care Provider + [phone] Isis Young RN Unavailable Tip Campos MD Unavailable Magnus Perez MD Unavailable [phone] System, Provider Not In Unavailable Unavaila Miki Diana MD Unavailable [phone] Raúl Pike MD Unavailable Jorge Moreno DO Unavailable [phone] Arturo Bunn MD Unavailable Leatha Mc Unavailable [phone] Encounter Details Date Type Department Care Team (Late st Contact Info) Description 03/19/2025 Scanned Document [facility] Neurosurgery [address] [phone] Tip Campos MD [address] [place] [address] Social History Tobacco Use Types Packs/Day [...] time in the past 12 [facility], were you homeless or living in a prison (including now)? No 02/05/2025 [facility] Utilities Answer Date Recorded In the [...] Description 04/26/2025 1:00 PM EST Office Visit [facility]astic [facility]ive Surgery [address] [place] [address] Clyde Martin PA 399 [facility] 210 [place] [address] 06/01/2025 10:00 AM EST Office Visit [facility] Neuro[facility] [place] [address] [phone] Samara Mendoza PA-C [address] [address] documented as of this encounter Goals Goal Patient Goal Type Associated Problems Recent Progress Patient-Stated? Author ST LTG 1 Speech Therapy No Zeina Messer CCC-ELECTRICAL PROSPECTING ENGINEER Note: Pt will tolerate least restrictive diet without s/s aspiration. ST STG 1 Speech Therapy No Zeina Messer CCC-ELECTRICAL PROSPECTING ENGINEER Note: Pt will complete an instrumental swallowing evaluation within 2 weeks. Additional goals to be set as indicated. documented as of this encounter Visit Diagnoses Not on filedocumented in this encounter Care Teams Support Merchandiser Relationship Specialty Start Date End Date Brett Sharma NP [address] [place] [address] PCP - General Family Medicine 03/03/24 Iiss Young RN 80 [place] [address] Nurse Navigator Surgery, Neurosurgery 01/25/25 Tip Campos MD [address] [place] [address] Surgery, Neurosurgery 02/01/25 Magnus Perez MD [address] [place] [phone] Cardiovascular Disease 02/01/25 System, Provider Not In [address] [place] [phone] Hematology Oncology 02/01/25 Miki Blackwood MD 15 [place] [address] Endocrinology 02/01/25 Raúl Pike MD [address] [place] [address] Gastroenterology 02/01/25 Jorge Moreno DO 269 [facility] 201 [place] [address] Immunology 02/01/25 Arturo Bunn MD [address] [place] [address] Otolaryngology 02/01/25 Leatha Mc PA [address] [place] [address] [place] [address] Physician Core Blower Surgery, Neurosurgery 02/05/25 documented as of this encounter
--- OUTSIDE RECORDS SUMMARY | 2025-04-04 16:48 | XMS_ITS | Encounter Summary ---
Author Organization [facility] Address [address] [place] [address] Care Team Providers Care Counter Stacker Name Role Phone Brett Sharma NP Primary Care Provider + [phone] Isis Young RN Unavailable [phone] Tip Campos MD Unavailable Magnus Perez MD Unavailable [phone] System, Provider Not In Unavailable Unavaila Miki Diana MD Unavailable [phone] Raúl Pike MD Unavailable [phone] Jorge Moreno DO Unavailable [phone] Arturo Bunn MD Unavailable Leatha Mc Unavailable [phone] Encounter Details Date Type Department Care Team (Late st Contact Info) Description 03/04/2024 Scanned Document [facility] Plastic & Reconstructive Surgery [address] [place] [address] Michael Long MD [address] [place] [address] 210 [place] [address] Social History Tobacco Use Types Packs/Day Years [...] Description 04/26/2025 1:00 PM EST Office Visit [facility] Plastic & Reconstructive Surgery [place] [address] [address] Clyde Martin PA [address] [place] [address] 06/01/2025 10:00 AM EST Office Visit [facility] Neurosurgery [place] [address] [phone] Samara Mendoza PA-C [address] [phone] documented as of this encounter Visit Diagnoses Not on filedocumented in this encounter Care Teams Counter Stacker Relationship Specialty Start Date End Date Brett Sharma NP [address] [place] [address] PCP - General Family Medicine 03/03/24 Isis Young RN 80 [place] [address] Nurse Navigator Surgery, Neurosurgery 01/25/25 Tip Campos MD [address] [place] [address] [place] [address] Surgery, Neurosurgery 02/01/25 Magnus Perez MD [address] [place] [phone] Cardiovascular Disease 02/01/25 System, Provider Not In [address] [place] [phone] Hematology Oncology 02/01/25 Miki Blackwood MD [address] [place] [address] Endocrinology 02/01/25 Raúl Pike MD [address] [place] [address] Gastroenterology 02/01/25 Jorge Moreno DO 269 [facility] 201 [place] [address] Immunology 02/01/25 Arturo Bunn MD [address] [place] [address] Otolaryngology 02/01/25 Leatha Mc PA 85 [facility] [address] [place] [address] Physician Customs Patrol Officer Surgery, Neurosurgery 02/05/25 documented as of this encounter
--- OUTSIDE RECORDS SUMMARY | 2025-04-04 16:48 | XMS_ITS | Clinical Summary ---
Author Organization [facility] Address [address] [place] [address] Care Team Providers Care Throw Out Clerk Name Role Phone Rosalind Viczarra NP Primary Care Provider Isis Young RN Unavailable Makayla Campos MD Unavailable Magnus Perez MD Unavailable [phone] System, Provider Not In Unavailable Unavaila Miki Diana MD Unavailable [phone] Raúl Pike MD Unavailable Jorge Moreno DO Unavailable [phone] Arturo Bunn MD Unavailable Leatha Mc Unavailable [phone] Allergies Active Allergy Reactions Criticality Noted [...] BY MOUTH EVERY DAY; Duration: 90 Active LORazepam (ATIVAN) 1 MG tabletIndicatio ns:Fibromuscula r dysplasia Take one tab 30 minutes before MRI and may take one additional tab immediately before MRI if needed 2 tablet 5 Active Active Problems Problem Noted Date Diagnosed Date Fibromuscular dysplasia 03/31/2025 Cervical spondylosis 02/05/2025 Prediabetes 02/03/2025 Assessment & [...] (02/02/2025 1:29 PM EDT): Patient presented to H/H on 01/24/25 with incidental finding of heart [...] with cardiology ( Dr. Manuel Perez) in [place]. Per his recent notes (02/01/25)-Discussed pursuing a [...] Encounters Date Type Department Care Team Description 03/31/2025 10:00 AM EST Office Visit [facility] Neurosurgery [address] [place] [address] Samara Mendoza PA-C S/P cervical spinal fusion (Primary Dx); Cervical disc disorder with radiculopathy; Lumbar radiculopathy; Degeneration of intervertebral disc of lumbar region with discogenic back pain and lower extremity pain; Fibromuscular dysplasia 03/25/2025 Scanned Document [facility] Neurosurgery [address] [place] [address] Samara Mendoza PA-C 03/19/2025 Scanned Document [facility] Neurosurgery [address] [place] [address] Makayla Campos MD 03/19/2025 Scanned Document [facility] Neurosurgery [place] [address] [facility] [address] [place] [address] Makayla Campos MD 03/09/2025 Scanned Document [facility] Neurosurgery [place] [address] [facility] [address] [place] [address] Leatha Mc PA 03/05/2025 9:00 AM EST Office Visit [facility] [address] [address] Alonzo Root MD Dysphonia (Primary Dx); Laryngeal spasm; Muscle tension dysphonia; History of fusion of cervical spine; Chronic rhinitis; Unilateral partial vocal fold paralysis 02/26/2025 7:38 AM EST - 02/26/2025 11:59 PM EST Hospital Encounter [facility] Radiology [address] [place] [address] Samara Mendoza PA-C Dysphagia, unspecified type; S/P cervical spinal fusion Discharge Disposition: Home or Self Care 02/24/2025 1:00 PM EST Evaluation [address] [phone] Leatha Mc PA Falk, Janice, CCC-COOK FROZEN DESSERT Dysphagia, pharyngeal phase (Primary Dx); S/P cervical spinal fusion 02/24/2025 Plan of Care Documentation [address] [phone] 02/24/2025 Scanned Document [facility] Neurosurgery [place] [address] [facility] [address] [place] [address] Makayla Campos MD 02/19/2025 11:40 AM EDT Ancillary Procedure [facility] Radiology [address] [place] [address] Provider, File Room 02/19/2025 11:35 AM EDT Ancillary Procedure [facility]iology [address] [facility] [place] [address] Provider, File Room 02/19/2025 11:35 AM EDT Ancillary Procedure [facility] [address] [place] [address] Provider, File Room 02/19/2025 10:00 AM EDT Office Visit [facility] Neurosurgery [address] [place] [address] Leatha Mc PA S/P cervical spinal fusion (Primary Dx); Dysphonia; Cervical disc disorder with radiculopathy; Fibromuscular dysplasia 02/17/2025 Scanned Document [facility] Neurosurgery [address] [place] [address] Leatha Mc PA 02/09/2025 Scanned Document [facility] Neurosurgery [address] [address] Neurosurgery, Scan 02/05/2025 8:15 AM EDT - 02/05/2025 12:[address] [facility] Perioperative Surgical Services [address] [place] [address] Makayla Campos MD ACDF 4-6 02/05/2025 8:13 AM EDT Anesthesia Event [facility] Per[facility]operative Surgical Services [address] [place] [address] Conrad Jiang MD 02/05/2025 6:14 AM EDT - 02/07/2025 2:04 PM EDT Hospital Encounter [facility] [address] [place] [phone] Makayla Campos MD Cervical spondylosis (Primary Dx) Discharge Disposition: Home or Self Care 02/03/2025 Scanned Document [facility] Neurosurgery [address] [place] [address] Samara Mendoza PA-C 02/03/2025 Results [facility]-Up [facility] [address] [place] [address] Ginny White PA 02/02/2025 10:30 AM EDT Pre-Admission Testing [facility] [address] [facility] 2[address] [place] [address] Ginny White PA Pre-op evaluation (Primary Dx); Gastroesophageal reflux disease with esophagitis without hemorrhage; Hypoparathyroidism after procedure; Tachycardia, paroxysmal (HCC); Cervical stenosis of spine; Hemochromatosis, unspecified hemochromatosis type; History of asthma; Mitral valve prolapse; Complication of anesthesia, initial encounter; Prediabetes 02/02/2025 9:00 AM EDT Office Visit [facility] [address] [address] Alonzo Root MD Dysphonia (Primary Dx); Cervical disc disorder; Muscle tension dysphonia 01/27/2025 9:00 AM EDT Consult [facility] Neurosurgery [address] [place] [address] Makayla Campos MD Cervical disc disorder with radiculopathy (Primary Dx) 01/27/2025 Scanned Document [facility] Neurosurgery [address] [place] [address] Makayla Campos MD 01/24/2025 7:30 PM EDT - 01/25/2025 3:33 PM EDT Hospital Encounter [facility] Emergency Department [address] [place] [address] Jaswinder Valentine MD Alkasir, Amr, MD Khan, Sana, MD Cervical stenosis of spine (Primary Dx); Cervical stenosis of spinal canal; Chest pain Discharge Disposition: Home or Self Care 01/22/2025 11:20 AM EDT Ancillary Procedure [facility]iology [address] [place] [address] Provider, File Room 01/22/2025 Scanned Document [facility] [id number] [address] [facility] [address] [place] [address] Makayla Campos MD from Last 3 Months [...] any time in the past 12 m [facility], were you homeless or living in a detention (including now)? No 02/05/2025 [facility] Utilities Answer Date Recorded In the [...] Pressure 104/57 02/07/2025 5:00 AM EDT Pulse 80 03/31/2025 9:57 AM EST Temperature 36.6 C (97.8 F) 02/07/2025 5:00 AM EDT Respiratory Rate 18 02/07/2025 5:00 AM EDT Oxygen Saturation 97% 03/31/2025 9:57 AM EST Inhaled Oxygen Concentration - - Weight 66.2 kg (146 lb) 03/31/2025 9:57 AM EST Height 160 cm (5' 3 ) 03/31/2025 9:57 AM EST Body Mass Index 25.86 03/31/2025 9:57 AM EST Plan of Treatment Upcoming Encounters Date Type Department Care Team (Late st Contact Info) Description 04/26/2025 1:00 PM EST Office Visit [facility] Plastic & Reconstructive Surgery [address] [place] [phone] Clyde Martin PA [address] [facility] [address] [place] [address] 06/01/2025 10:00 AM EST Office Visit [facility] Neurosurgery [place] [address] [facility] [address] [place] [address] Samara Mendoza PA-C [address] [facility] [address] [place] [address] Health Maintenance Due Date Last Done Comments [...] Author ST [facility] 1 Speech Therapy No Ziena Messer CCC-COOK FROZEN DESSERT Note: Pt will tolerate least restrictive diet without s/s aspiration. ST ST[facility] 1 Speech Therapy No Zeina Messer CCC-COOK FROZEN DESSERT Note: Pt will complete an instrumental swallowing evaluation within 2 weeks. Additional goals to be set as indicated. Medical Devices Implanted Type Area Underwriting Specialist Device Identifier Shelf Expiration Date Model / Serial / Lot [id number] Plate Spine 37.5mm Bone Valentina Vs Elite - [id number] Implanted:Qty : 1 on 02/05/2025 by Makayla Campos MD at [facility] Plate N/A: Spine Cervical [employer] [id number] / / [id number] Screw Bone Spine Cervical Anterior Radium 14mm Ti 4mm - [id number] Implanted:Qty : 4 on 02/05/2025 by Makayla Campos MD at [facility] Spine N/A: Spine Cervical [employer] [id number] / / [id number] Screw Bone Spine Cervical Anterior Radium 13mm Ti 4mm - [id number] Implanted:Qty : 2 on 02/05/2025 by Makayla Campos MD at [facility] Spine N/A: Spine Cervical [employer] [id number] / / [id number] Aalograft Spacer [id number] - [id number] Implanted:Qty : 1 on 02/05/2025 by Makayla Campos MD at [facility] Tissue N/A: Spine Cervical [employer] 06/02/2027 [id number] / [id number] / [id number] Graft Bone Crstn Asr Lrdtc Canc Aureliano Algrf Spcr [id number] - [id number] Implanted:Qty : 1 on 02/05/2025 by Makayla Campos MD at [facility] Tissue N/A: Spine Cervical [employer] 05/25/2027 [id number] / [id number] / [id number] Procedures Procedure Name Priority Date/Time Associated Diagnosis Comments XR CERVICAL SPINE W/FLEX+EXT 6+ VIEWS Routine 03/26/2025 4:13 PM EST S/P cervical spinal fusion XR LUMBAR SPINE COMPLETE W/BENDING 6+ VIEWS [...] ANES INTUBATION Routine 02/05/2025 9:05 AM EDT RI ARTHRD ANT INTERBODY DECOMPRESS CERVICAL BELW C2 [...] from Last 3 Months Results * XR Cervical spine w/flex+ext 6+ views (03/26/2025 4:13 PM EST) Only the most recent of2 resultswithin the time period is included. Anatomical Region Laterality Modality C-spine Computed Radiogr aphy 03/26/2025 4:00 PM EST 03/26/2025 4:00 PM EST Impressions 03/30/2025 7:26 AM EST Postoperative changes C4-C6. Positioning appears good. No instability is seen. Electronically signed by: Juan Moran MD 03/30/2025 07:26 AM EST RP Thank you for referring your patient to us, Juan Moran MD [phone] (Electronically Signed - 03/30/2025 07:26) Copy: PATIENT , Narrative 03/30/2025 7:26 AM EST Cervical spine 4 views HISTORY: Postoperative, new left arm numbness Postoperative changes are seen from C4 through C6 anteriorly with plate and [...] no instability is felt to be present. Surgical clips are seen in the anterior aspect of the lower neck likely related to prior thyroid surgery. Procedure Note Juan Moran MD - 03/30/2025 Cervical spine 4 views HISTORY: Postoperative, new left arm numbness Postoperative changes are seen from C4 through C6 anteriorly with plateand screws. Disc spacers are seen at C4-5 and C5-6. Positioning appearsgood. No interval changes are noted from prior exam. Minimal subluxation is seen at C2-3 with C2 anterior to C5 3 by a fewmillimeters. There is mild arthropathy seen throughout the facets apparent inferiorly.A miniscule subluxation is seen C7-T1 with C7 anterior to T1 by 2 mm. Thisalso appears unchanged. On flexion and extension views no instability is felt to be present. Surgical clips are seen in the anterior aspect of the lower neck likelyrelated to prior thyroid surgery. IMPRESSION: Postoperative changes C4-C6. Positioning appears good. No instability isseen. Electronically signed by: Juan Moran MD 03/30/2025 07:26 AM EST RPWorkstation: [id number] Thank you for referring your patient to us, Juan Moran MD [phone] (Electronically Signed - 03/30/2025 07:26) Copy: PATIENT , Lambert MOSS IMArnoldo DIAGNOSTIC IMAGING ORDERABLE S Final Result * XR Lumbar spine complete w/bending 6+ [...] your patient to us, Minh Nayak MD [id number] (Electronically Signed - 03/17/2025 15:47) Copy: ROSALIND VIZCARRA NP [facility] [address] [place] [address] Narrative 03/17/2025 3:47 PM EST EXAMINATION: XR [...] Nayak MD 03/17/2025 03:47 PM EST RPWorkstation: [id number] Thank you for referring your patient to us, Minh Nayak MD [id number] (Electronically Signed - 03/17/2025 15:47) Copy: ROSALIND VIZCARRA ASSOCIATE DOCTOR [address] [place] [address] us Leatha MOSS IMG DIAGNOSTIC IMAGING ORDERAB LES Final Result * FL Modified barium swallow w/speech (02/26/2025 8:56 AM EST) Anatomical Region Laterality Modality Radio Fluoroscop y 02/26/2025 8:21 AM EST Impressions 02/26/2025 4:44 PM EST 1. No aspiration or penetration with tested consistencies. 2. Please see speech language therapist's note for further details. Interpreted by: Manuel Shabazz MD Commission Broker I personally reviewed the images and the [...] penetration with tested consistencies. Procedure Note Efrain Lind, DO - 02/26/2025 EXAMINATION: FL MODIFIED BARIUM [...] further details. Interpreted by: Manuel Shabazz MD Commission Broker I personally reviewed the images and the [...] your patient to us, Juan Moran MD [phone] (Electronically Signed - 03/01/2025 17:56) Copy: MAKAYLA Samra BENNETTNBA [facility] [place] [address] [facility] [address] [place] [address] ROSALIND VIZCARRA [facility] [address] [facility] [place] [address] PATIENT , Narrative 03/01/2025 5:56 PM EST [...] Moran MD 03/01/2025 05:56 PM EST RPWorkstation: [id number] Thank you for referring your patient to us, Juan Moran MD [phone] (Electronically Signed - 03/01/2025 17:56) Copy: MAKAYLA CAMPOS [facility] [place] [address] [facility] [address] [place] [address] ROSALIND VIZCARRA ASSOCIATE DOCTOR [facility] [address] [place] [address] PATIENT , Leatha MOSS IMG DIAGNOSTIC IMAGING ORDERAB LES Final Result * CT Head Archive for Reference Only (02/19/2025 11:33 AM EDT) Only the most recent of2 resultswithin the time period is included. Narrative [place] - 02/19/2025 11:33 AM EDT This study has been auto finalized and does not contain a result. File Room Provider IMG DIGITIZE FILMS Final Resu lt Performing Organization Address [facility] de Phone Number RACHEL [phone] * MR Head Archive for Reference Only (02/19/2025 11:32 AM EDT) Narrative [facility] - 02/19/2025 11:32 AM EDT This study has been auto finalized and does not contain a result. File Room Provider IMG DIGITIZE FILMS Final Resu lt Performing Organization Address [facility] de Phone Number [facility] [phone] * XR Chest 1 view-Portable (02/06/2025 6:08 [...] Final Result * XR OR FLUORO <=1HR (HH) (02/05/2025 11:05 AM EDT) Anatomical Region Laterality [...] * Peripheral Line (02/05/2025 9:05 AM EDT) Narrative Conrad Jiang MD - 02/05/2025 9:05 AM EDT Conrad [...] length, in right hand Insertion attempts: 1 us Conrad Jiang MD RI ANESTHESIA Final Result * ANES INTUBATION (02/05/2025 9:05 AM EDT) Narrative Conrad Jiang MD - 02/05/2025 9:05 AM EDT Conrad [...] Complications: no complications us Conrad Jiang MD RI ANESTHESIA Final Result * POCT , Urine (02/05/2025 6:48 AM EDT) Preg Test, Ur Negative Negative Lot Number [id number] [place] Pass Urine 02/05/2025 6:48 AM EDT us Conrad Jiang MD POINT OF CARE TEST ORD ERABLES Final Result * Type and Screen (02/05/2025 6:34 AM EDT) Only the most recent of2 resultswithin the time period is included. ABO/Rh A NEGATIVE 02/05/2025 8:37 AM EDT [facility] Antibody Screen NEGATIVE 8:37 AM EDT [facility] Specimen Expiration 02/08/2025 02/05/2025 8:37 AM EDT [facility] Blood Blood specimen / Unknown 02/05/2025 6:34 AM EDT 02/05/2025 7:26 AM EDT Lambert MOSS BLOOD BANK TEST ORDERABLES Final Result Performing Organization Address [facility] [place] [address], [place] [address] * (ABNORMAL) Hemoglobin A1c with Estimated Average Glucose (02/02/2025 11:39 AM EDT) Pathologist [facility] Hemoglobin A1C 5.7(H) <5.7 % 02/03/2025 4:30 AM EDT [facility] Comment: A1c% Interpretation 5.7 - 6.0 Increase risk of diabetes 6.1 - 6.4 Higher risk of diabetes > or = 6.5 Consistent with diabetes Diabetes Care, 33(Supp 1):S1-S61, 2009 Estimated Average Glucose 117 mg/dL 02/03/2025 4:30 AM EDT [facility] Blood Blood specimen / Unknown 02/02/2025 11:39 AM EDT 02/02/2025 8:26 PM EDT Ginny MOSS LAB BLOOD ORDERABLES Final Resul t Performing Organization Address [facility] Co [place] [address], [place] [address] * MRSA PCR Screen, Qualitative: (02/02/2025 11:39 AM EDT) Pathologist [facility] MRSA Result Not Detected Not Detected 10/14/202 5 10:27 PM EDT [facility] Comment:Performed by the Xpe rt MRSA NxG Assay Swab, Anterior Nares Specimen from nose / Unknown 02/02/2025 11:39 AM EDT 02/02/2025 8:25 PM EDT Ginny Christopher PA MICROBIOLOGY - GENERAL ORDERABLE S Final Result Performing Organization Address [facility] [place] [address], [place] [address] * Partial Thromboplastin Time (PTT) (02/02/2025 11:39 AM EDT) Anticoagulant Information not given 02/02/2025 10:32 AM EDT [facility] Partial Thromboplastin Time (PTT) 25 25 - 36 seconds 02/02/2025 8:44 PM EDT [facility] Blood Blood specimen / Unknown 02/02/2025 11:39 AM EDT 02/02/2025 8:26 PM EDT Ginny White PA LAB BLOOD ORDERABLES Final Resul t Performing Organization Address City/[facility] [place] [address], [place] [address] * Protime-INR (02/02/2025 11:39 AM EDT) Anticoagulant Information not given 02/02/2025 10:32 AM EDT [facility] Prothrombin Time (PT) 10.8 10.0 - 13.5 seconds 02/02/2025 8:44 PM EDT [facility] INR 0.9 02/02/2025 8:44 PM EDT [facility] Comment:INR Therapeutic Rang es: Standard dose anticoagulant 2.0 to 3.0, High dose anticoagulant 2.5-3.5. Blood Blood specimen / Unknown 02/02/2025 11:39 AM EDT 02/02/2025 8:26 PM EDT us Ginny Otoo PA LAB BLOOD ORDERABLES Final Resul t Performing Organization Address [facility] [place] [address], [address] [address] * Transferrin (02/02/2025 11:39 AM EDT) Transferrin 209 200 - 360 mg/dL 02/02/2025 8:50 PM EDT [facility] Blood Blood specimen / Unknown 02/02/2025 11:39 AM EDT 02/02/2025 8:26 PM EDT us Ginny Otoo PA LAB BLOOD ORDERABLES Final Resul t Performing Organization Address [facility] [place] [address], [address] [address] * Prealbumin (02/02/2025 11:39 AM EDT) Pathologist [facility] Prealbumin 33 20 - 40 mg/dL 02/02/2025 8:50 PM EDT [facility] Blood Blood specimen / Unknown 02/02/2025 11:39 AM EDT 02/02/2025 8:26 PM EDT us Ginny Otoo PA LAB BLOOD ORDERABLES Final Resul t Performing Organization Address [facility] [place] [address], [place] [address] * LAB RESULT (02/01/2025) us Scan Primary Care HX AMB PROCEDURES Final Result * (ABNORMAL) High Sensitivity Troponin T (Once) (01/25/2025 3:31 AM EDT) Only the most recent of4 resultswithin the time period is included. High Sensitivity Troponin T 38(H) <15 ng/L 01/25/2025 4:07 AM EDT [facility] Delta (Change) 13(H) <3 01/25/2025 4:07 AM EDT [facility] Comment:Decreased Blood Blood specimen / Unknown 01/25/2025 3:31 AM EDT 01/25/2025 3:35 AM EDT Zaira Stewart MD LAB BLOOD ORDERABLES Final Resul t [address] [address], [address] [address] * ECG 12 lead (01/25/2025 2:58 AM EDT) Only the most recent of2 resultswithin the time period is included. Ventricular rate 99 BPM EKG [facility] Atrial rate 99 BPM EKG [facility] P-R interval 182 ms [facility] QRS duration 88 ms EKG [facility] Q-T interval 344 ms EKG [facility] QTC calculation (Bazett) 442 ms EKG [facility] P axis 60 degrees EKG [facility] R axis -52 degrees EKG [facility] T axis 30 degrees EKG [facility] 01/25/2025 2:58 AM EDT Narrative EKG [facility] - 01/25/2025 12:02 PM EDT Normal sinus rhythm Left axis deviation Inferior infarct (cited on or before 24-Jan-2025) Cannot rule out Anterior infarct (cited on or before 24-Jan-2025) Abnormal ECG When compared with ECG of 24-Jan-2025 19:20, No significant change was found Confirmed by MD Forte Eric ([id number]) on 01/25/2025 12:02:53 PM Procedure Note Gloden Forte MD - 01/25/2025 Normal sinus rhythm Left axis deviation Inferior infarct (cited on or before 24-Jan-2025) Cannot rule out Anterior infarct (cited on or before 24-Jan-2025) Abnormal ECG When compared with ECG of 24-Jan-2025 19:20, No significant change was found Confirmed by MD Jann, Golden ([id number]) on 01/25/2025 12:02:53 PM us Jaswinder Valentine MD ECG ORDERABLES Final Result Performing Organization Address [facility] Co de Phone Number EKG [facility] * Magnesium (01/24/2025 11:49 PM EDT) Magnesium 2.1 1.6 - 2.7 mg/dL 01/25/2025 2:44 AM EDT [facility] 01/24/2025 11:4 9 PM EDT 01/25/2025 12:01 AM EDT us Jaswinder Valentine MD LAB BLOOD ORDERABLES Final Res ult Performing Organization Address [facility] de Phone Number [address] [address], [address] [address] * MRI Cervical spine w/o contrast (01/24/2025 10:41 PM EDT) Anatomical Region Laterality Modality C-spine Magnetic Resonan ce 01/24/2025 9:4 2 PM EDT Addenda Addendum by Capo Constantino MD on 01/26/2025 8:50 AM EDT ADDENDUM #1 Results Acknowledgement: This was communicated to Dr. Jaswinder Valentine by a physician retail support manager at 11:25 PM on 01/24/2025. Impressions 01/24/2025 [...] right foraminal stenosis. us Jaswinder Valentine MD [facility] MRI ORDERABLES Edited Resu lt - Final * MRI Brain w/o contrast (01/24/2025 10:41 PM EDT) Anatomical Region Laterality Modality Head Magnetic Resonan ce 01/24/2025 9:43 PM EDT Addenda Addendum by Capo Constantino MD on 01/26/2025 8:50 AM EDT ADDENDUM #1 Results Acknowledgement: This was communicated to Dr. Jaswinder Valentine by a physician retail support manager at 11:25 PM on 01/24/2025. Impressions 01/24/2025 [...] 4.0 - 11.0 Thou/uL 01/24/2025 9:07 PM [facility] Platelet Count 364 150 - 450 Thou/uL 01/24/2025 9:07 PM [facility] Hemoglobin 15.2 11.7 - 15.7 g/dL 01/24/2025 9:07 PM [facility] Hematocrit 45.1 35.0 - 47.0 % 01/24/2025 9:07 PM [facility] Red Blood Cell Count 5.10 4.00 - 5.40 Mil/uL 01/24/2025 9:07 PM [facility] MCV 88 80 - 100 fL 01/24/2025 9:07 PM [facility] MCH 29.8 26.0 - 34.0 pg 01/24/2025 9:07 PM [facility] MCHC 33.7 30.0 - 36.0 g/dL 01/24/2025 9:07 PM [facility] [facility] RDW 14.1 11.5 - 14.5 % 01/24/2025 9:07 PM [facility] MPV 10.0 7.5 - 12.5 fL 01/24/2025 9:07 PM [facility] Neutrophils Auto 65.3 % 01/25/20 25 9:07 PM [facility] Immature Granulocytes 1.0 % [facility] Lymph[facility] Auto 24.4 % 01/25/20 9:07 PM EDT [facility] Monocytes Auto 7.8 % 01/24/2025 9:07 PM [facility] Eosinophils Auto 0.6 % 01/25/20 9:07 PM [facility] Basophils Auto 0.9 % 01/24/2025 9:07 PM [facility] Abs Neutrophils Auto 6.04 2.00 - 7.50 Thou/uL 01/24/2025 9:07 PM [facility] Abs Immature Granulocytes 0.09 0.00 - 0.10 Thou/uL 01/24/2025 9:07 [facility] Abs Lymphocytes Auto 2.26 1.50 - 4.50 Thou/uL 01/24/2025 9:07 PM [facility] Abs Monocytes Auto 0.72 0.20 - 1.50 Thou/uL 01/24/2025 9:07 [facility] Abs Eosinophils Auto 0.06 0.00 - 0.70 Thou/uL 01/24/2025 9:07 PM [facility] Abs Basophils Auto 0.08 0.00 - 0.20 Thou/uL 01/24/2025 9:07 PM [facility] Blood Blood specimen / Unknown 01/24/2025 8:06 PM EDT 01/24/2025 8:57 PM EDT Jaswinder Valentine MD LAB BLOOD ORDERABLES Final Res ult [address] [address], [address] [address] * (ABNORMAL) Comprehensive Metabolic Panel (01/24/2025 8:06 PM EDT) Glucose 101(H) 65 - 99 mg/dL 01/24/2025 9:59 PM EDT [facility] Comment:Fasting: <100 mg/dL, Non-Fasting: <200 mg/dL (ADA 2005) Blood Urea Nitrogen (BUN) 23(H) 8 - 21 mg/dL 01/24/2025 9:59 PM [facility] Creatinine 0.78 0.40 - 1.10 mg/dL 01/24/2025 9:59 PM [facility] eGFR >90 >59 01/24/2025 9:59 PM [facility] Comment:CKD-EPI (2020) in mL /min/1.73 sq meters. Sodium 141 136 - 145 mmol/L 01/24/2025 9:59 PM [facility] Potassium 3.8 3.4 - 5.3 mmol/L 01/24/2025 9:59 PM [facility] Chloride 108(H) 98 - 107 mmol/L 01/24/2025 9:59 PM [facility] CO2 23 22 - 33 mmol/L 01/24/2025 9:59 PM [facility] Calcium 9.3 8.7 - 10.5 mg/dL 01/24/2025 9:59 PM [facility] Alkaline Phosphatase 59 32 - 122 U/L 01/24/2025 9:59 PM [facility] Aspartate Aminotrans (AST) 15 10 - 50 U/L 01/24/2025 9:59 PM [facility] Alanine Aminotrans (ALT) 17 10 - 50 U/L 01/24/2025 9:59 PM [facility] Bilirubin, Total <0.2(L) 0.2 - 1.0 mg/dL 01/24/2025 9:59 PM [facility] Protein, Total 6.6 6.3 - 8.3 g/dL 01/24/2025 9:59 PM [facility] Albumin 4.1 3.5 - 5.0 g/dL 01/24/2025 9:59 PM [facility] BUN/Creatinine Ratio 29(H) 10.0 - 25.0 Ratio 01/24/2025 9:59 PM [facility] Globulin 2.5 1.5 - 3.9 g/dL 01/24/2025 9:59 PM [facility] Albumin/Globulin Ratio 1.6 1.0 - 3.0 Ratio 01/24/2025 9:59 PM [facility] Anion Gap 10 7 - 17 01/24/2025 9:59 PM EDT [facility] Blood Blood specimen / Unknown 01/24/2025 8:06 PM EDT 01/24/2025 8:57 PM EDT Jaswinder Valentine MD LAB BLOOD ORDERABLES Final Res ult Performing Organization Address City/[facility]/ZIP Co de Phone Number [address] [address], [address] [address] * MR Spine Archive for Reference Only (01/22/2025 11:15 AM EDT) Narrative RACHEL - 01/22/2025 11:15 AM EDT This study has been auto finalized and does not contain a result. us File Room Provider IMG DIGITIZE FILMS Final Resu lt Performing Organization Address City/[facility]/ZIP Co de Phone Number RACHEL [phone] from Last 3 Months Insurance [facility] PPO [facility] PPO Advance Directives * Full Code (Latest [...] 12:17 PM 03/03/2024 9:09 PM Care Teams Throw Out Clerk Relationship Specialty Start Date End Date Rosalind Vizcarra NP [address] [place] [address] PCP - General Family Medicine 03/03/24 Isis Young RN 80 [place] [address] Nurse Navigator Surgery, Neurosurgery 01/25/25 Makayla Campos MD [address] [address] Surgery, Neurosurgery 02/01/25 Magnus Perez MD [address] [place] [phone] Cardiovascular Disease 02/01/25 System, Provider Not In [address] [place] [phone] Hematology Oncology 02/01/25 Miki Blackwood MD [address] [place] [address] Endocrinology 02/01/25 Raúl Pike MD [address] [place] [address] 102 [place] [address] Gastroenterology 02/01/25 Jorge Moreno DO [address] [place] [address] 201 [place] [address] Immunology 02/01/25 Arturo Bunn MD [address] [place] [address] Otolaryngology 02/01/25 Leatha Mc PA 85 [facility] 1003 [place] [address] Physician Chief Engineering Division Surgery, Neurosurgery 02/05/25
--- OUTSIDE RECORDS SUMMARY | 2025-04-04 16:48 | XMS_ITS | Encounter Summary ---
Author Organization [facility] Address [address] [place] [address] Care Team Providers Care Senior Clinical Research Scientist Name Role Phone Brett Sharma NP Primary Care Provider + [phone] Isis Young RN Unavailable [phone] Tip Campos MD Unavailable [phone] Magnus Perez MD Unavailable [phone] System, Provider Not In Unavailable Unavaila Miki Diana MD Unavailable [phone] Raúl Pike MD Unavailable Jorge Moreno DO Unavailable Arturo Bunn MD Unavailable Leatha Mc Unavailable [phone] Encounter Details Date Type Department Care Team (Late st Contact Info) Description 03/25/2025 Scanned Document [facility] Neurosurgery [place] 85 [facility] [address] [place] [phone] Samara Mendoza PA-C 85 [facility] Joshua [address] [place] [address] Social History Tobacco Use Types Packs/Day [...] any time in the past 12 m [facility], were you homeless or living in a jail (including now)? No 02/05/2025 [facility] Utilities Answer Date Recorded In [...] [facility] [address] [place] [address] Clyde Martin PA 399 [facility] 210 [place] [address] 06/01/2025 10:00 AM EST Office Visit [facility] Neurosurgery [place] [address] [phone] Samara Mendoza PA-C [address] [address] documented as of this encounter Goals Goal Patient Goal Type Associated Problems Recent Progress Patient-Stated? Author ST LTG 1 Speech Therapy No Zeina Messer CCC-SAMPLE COORDINATOR Note: Pt will tolerate least restrictive diet without s/s aspiration. ST STG 1 Speech Therapy No Zeina Messer CCC-SAMPLE COORDINATOR Note: Pt will complete an instrumental swallowing evaluation within 2 weeks. Additional goals to be set as indicated. documented as of this encounter Visit Diagnoses Not on filedocumented in this encounter Care Teams Senior Clinical Research Scientist Relationship Specialty Start Date End Date Brett Sharma NP 262 [place] [address] PCP - General Family Medicine 03/03/24 Isis Young RN 80 [place] [address] Nurse Navigator Surgery, Neurosurgery 01/25/25 Tip Campos MD [address] [place] [address] Surgery, Neurosurgery 02/01/25 Magnus Perez MD [address] [place] [phone] Cardiovascular Disease 02/01/25 System, Provider Not In [address] [place] [phone] Hematology Oncology 02/01/25 Miki Blackwood MD 15 [place] [address] Endocrinology 02/01/25 Raúl Pike MD [address] [place] [address] Gastroenterology 02/01/25 Jorge Moreno DO 269 [facility] 201 [place] [address] Immunology 02/01/25 Arturo Bunn MD [address] [place] [address] Otolaryngology 02/01/25 Leatha Mc PA [address] [place] [address] [place] [address] Physician Tight Cooper Surgery, Neurosurgery 02/05/25 documented as of this encounter
--- OUTSIDE RECORDS SUMMARY | 2025-04-04 16:48 | XMS_ITS | Encounter Summary ---
Author Organization [facility] Address [address] [place] [address] Care Team Providers Care Die Fitter Name Role Phone Brett Sharma NP Primary Care Provider + [phone] Isis Young RN Unavailable Tip Campos MD Unavailable [phone] Magnus Perez MD Unavailable [phone] System, Provider Not In Unavailable Unavaila Miki Diana MD Unavailable [phone] Raúl Pike MD Unavailable Jorge Moreno DO Unavailable [phone] Arturo Bunn MD Unavailable Leatha Mc Unavailable [phone] Encounter Details Date Type Department Care Team (Late st Contact Info) Description 02/09/2025 Scanned Document [facility] Neurosurgery [address] [phone] Neurosurgery, Scan Social History Tobacco Use Types [...] any time in the past 12 m [facility], were you homeless or living in a penitentiary (including now)? No 02/05/2025 [facility] Utilities Answer Date Recorded In the past [...] Description 04/26/2025 1:00 PM EST Office Visit [facility] Plastic & Reconstructive Surgery [place] 399 [facility] 210 [place] [address] Clyde Martin PA [address] [place] [address] 210 [place] [address] 06/01/2025 10:00 AM EST Office Visit [facility] Neurosurgery [place] 85 [facility] [address] [place] [phone] Samara Mendoza PA-C [address] [address] documented as of this encounter Visit Diagnoses Not on filedocumented in this encounter Care Teams Die Fitter Relationship Specialty Start Date End Date Brett Sharma NP [address] [place] [address] PCP - General Family Medicine 03/03/24 Isis Young RN 80 [place] [address] Nurse Navigator Surgery, Neurosurgery 01/25/25 Tip Campos MD [address] [place] [address] Surgery, Neurosurgery 02/01/25 Magnus Perez MD [address] [place] [phone] Cardiovascular Disease 02/01/25 System, Provider Not In [address] [place] [phone] Hematology Oncology 02/01/25 Miki Blackwood MD [address] [place] [address] Endocrinology 02/01/25 Raúl Pike MD [address] [place] [address] Dr [address] [place] [address] Gastroenterology 02/01/25 Jorge Moreno DO 269 [facility] 201 [place] [address] Immunology 02/01/25 Arturo Bunn MD [address] [place] [address] Otolaryngology 02/01/25 Leatha Mc PA 85 [facility] [address] [place] [address] Physician Balloon Seller Surgery, Neurosurgery 02/05/25 documented as of this encounter
--- OUTSIDE RECORDS SUMMARY | 2025-04-04 16:48 | XMS_ITS | Encounter Summary ---
Author Organization [facility] Address [address] [place] [address] Care Team Providers Care Sales And Retail Management Recruiter Name Role Phone Pcp, No Primary Care Provider Unavailabl Brett Iqbal NP Primary Care Provider [phone] Isis Young RN Unavailable [phone] Tip Campos MD Unavailable Magnus Perez MD Unavailable System, Provider Not In Unavailable Unavaila Miki Diana MD Unavailable Raúl Pike MD Unavailable [phone] Jorge Moreno DO Unavailable Arturo Bunn MD Unavailable Leatha Mc Unavailable [phone] Encounter Details Date Type Department Care Team (Late st Contact Info) Description 02/27/2024 Scanned Document [facility] Plastic & Reconstructive Surgery [address] 210 [place] [phone] Michael Long MD [address] [place] [address] 210 [place] [address] Social History Tobacco Use Types Packs/Day Years [...] Description 04/26/2025 1:00 PM EST Office Visit [facility] Plastic & Reconstructive Surgery [address] [phone] Clyde Martin PA [address] [place] [address] 06/01/2025 10:00 AM EST Office Visit [facility] Neurosurgery [place] [address] [phone] Samara Mendoza PA-C [address] [address] documented as of this encounter Visit Diagnoses Not on filedocumented in this encounter Care Teams Sales And Retail Management Recruiter Relationship Specialty Start Date End Date Pcp, No PCP - General General Medicine 03/04/19 03/02/24 Brett Sharma NP [address] [place] [address] PCP - General Family Medicine 03/03/24 Isis Young RN 80 [place] [address] Nurse Navigator Surgery, Neurosurgery 01/25/25 Tip Campos MD [address] [address] Surgery, Neurosurgery 02/01/25 Magnus Perez MD [address] [place] [phone] Cardiovascular Disease 02/01/25 System, Provider Not In [address] [place] [phone] Hematology Oncology 02/01/25 Miki Blackwood MD [address] [place] [address] Endocrinology 02/01/25 Raúl Pike MD [address] [place] [address] Gastroenterology 02/01/25 Jorge Moreno DO [address] [place] [address] Immunology 02/01/25 Arturo Bunn MD [address] [place] [address] Otolaryngology 02/01/25 Leatha Mc PA [address] [address] Physician Photoengraving Proofer Surgery, Neurosurgery 02/05/25 documented as of this encounter
--- OUTSIDE RECORDS SUMMARY | 2025-04-04 16:48 | XMS_ITS | Encounter Summary ---
Author Organization [facility] Address [address] [place] [address] Care Team Providers Care Shaft Mechanic Name Role Phone Brett Sharma NP Primary Care Provider + [phone] Isis Young RN Unavailable [phone] Tip Campos MD Unavailable Magnus Perez MD Unavailable [phone] System, Provider Not In Unavailable Unavaila Miki Diana MD Unavailable [phone] Raúl Pike MD Unavailable [phone] Jorge Moreno DO Unavailable Arturo Bunn MD Unavailable Leatha Mc Unavailable [phone] Encounter Details Date Type Department Care Team (Late st Contact Info) Description 03/04/2024 Scanned Document [facility] Plastic & Reconstructive Surgery [address] [place] [address] Michael Long MD [address] [place] [address] 210 [place] [address] Social History Tobacco Use Types Packs/Day Years [...] Description 04/26/2025 1:00 PM EST Office Visit [facility] Plastic & Reconstructive Surgery [place] [address] [phone] Clyde Martin PA [address] [place] [address] 06/01/2025 10:00 AM EST Office Visit [facility] Neurosurgery [place] [address] [phone] Samara Mendoza PA-C [address] [phone] documented as of this encounter Visit Diagnoses Not on filedocumented in this encounter Care Teams Shaft Mechanic Relationship Specialty Start Date End Date Brett Sharma NP [address] [place] [address] PCP - General Family Medicine 03/03/24 Isis Young RN 80 [place] [address] Nurse Navigator Surgery, Neurosurgery 01/25/25 Tip Campos MD [address] [place] [address] [place] [address] Surgery, Neurosurgery 02/01/25 Magnus Perez MD [address] [place] [phone] Cardiovascular Disease 02/01/25 System, Provider Not In [address] [place] [phone] Hematology Oncology 02/01/25 Miki Blackwood MD [address] [place] [address] Endocrinology 02/01/25 Raúl Pike MD [address] [place] [address] Gastroenterology 02/01/25 Jorge Moreno DO 269 [facility] 201 [place] [address] Immunology 02/01/25 Arturo Bunn MD [address] [place] [address] Otolaryngology 02/01/25 Leatha Mc PA 85 [facility] [address] [place] [address] Physician Resolution Agent Surgery, Neurosurgery 02/05/25 documented as of this encounter
--- OUTSIDE RECORDS SUMMARY | 2025-04-04 16:49 | XMS_ITS | Encounter Summary ---
Author Organization [facility] Address [address] [address] Phone Care Team Providers Care Sales Clerk Name Role Phone Pcp, Not Required Primary Care Provider Unavaila Arturo Tong MD, PhD Unavailable [phone] Rylee Zendejas BURRER OPERATOR Primary Care Provider Unknown, Unknown Primary Care Provider Rylee Sanchez BURRER OPERATOR Primary Care Provider Brett Sharma BURRER OPERATOR Primary Care Provider + Encounter Details Date Type Department Care Team (Late st Contact Info) Description 08/14/2018 Transcribe Orders [facility] Phleb Main 30 [place] [address] Arturo Lawrence MD, PhD [address] [place] [address] [address] [email or web address] Social History Tobacco Use Types [...] Description 04/13/2025 3:00 PM EST Office Visit [facility] 15 [facility], [address] [place] [address] Miki Blackwood MD 55 [facility] [address] [place] [address] [email or web address] 04/29/2025 10:30 AM EST Office Visit [facility] 55 [facility], 5th [place] [address] Ranjit Morley MD [address] [address] [email or web address] 05/18/2025 8:45 AM EST Evaluation [facility] Audiology [address] [address] Charissa Lew AuD 243 [place] [address] [email or web address] 05/18/2025 9:30 AM EST Office Visit [facility] Otology [address] [address] Arturo Bunn MD, PhD [address] [place] [address] [email or web address] 08/27/2025 9:10 AM EDT Office Visit [facility] 70 [place] [address] Pooja Jacob MD [address] [address] [email or web address] 09/24/2025 10:30 AM EDT Office Visit [facility] Cardiology [facility] [address] [facility] [address] [place] [address] Magnus Perez MD 55 [facility] 5B [place] [address] [email or web address] documented as of this encounter Visit Diagnoses Not on filedocumented in this encounter Care Teams Sales Clerk Relationship Specialty Start Date End Date Pcp, Not Required PCP - General 08/24/16 04/26/19 Rylee Zendejas, SELWYN [address] [place] [address] [email or web address] PCP - General Family Medicine 04/27/19 06/15/19 Unknown, Cesario, [address] [place] [address] PCP - General 06/16/19 06/22/19 Rylee Zendejas NP [address] [place] [address] [place] [address] [email or web address] PCP - General Family Medicine 06/23/19 08/15/21 Brett Sharma, SELWYN [address] [place] [address] [place] [address] PCP - General Family Medicine 08/16/21 Arturo Lawrence MD, PhD 55 [facility] Outpatient Care[facility] 7[address] [place] [address] [email or web address] Hematology and Oncology 07/06/17 documented as of this encounter Additional Source Comments The information contained in this document represents components of the legal health record. It is not the complete legal health record.[facility]
--- OUTSIDE RECORDS SUMMARY | 2025-04-04 16:49 | XMS_ITS | Encounter Summary ---
Author Organization [facility] Address 399 [facility] [address] [place] [address] Phone Care Team Providers Care Abstract Writer Name Role Phone Arturo Lawrence MD, PhD Unavailable [phone] Brett Sharma NP Primary Care Provider + Encounter Details Date Type Department Care Team (Late st Contact Info) Description 08/28/2022 Procedure [facility], Ct Scan - [address] [address] Social History Tobacco Use Types Packs/Day Years [...] 08/28/2022 4:56 AM Eli Rios, RN * [place] Suicide Severity Rating Scale (Screener/Recent Self-Report) Question [...] Description 04/13/2025 3:00 PM EST Office Visit [facility] 15 [facility], [address] [place] [address] Miki Blackwood MD [address] [place] [address] [address] [place] [address] [email or web address] 04/29/2025 10:30 AM EST Office Visit [facility] [address] [place] [address], [address] [place] [address] Ranjit Morley MD [address] [address] [email or web address] 05/18/2025 8:45 AM EST Evaluation [facility] Audiology [address] [address] Charissa Lew AuD [address] [place] [address] [email or web address] 05/18/2025 9:30 AM EST Office Visit [facility] Otology [address] [address] Arturo Bunn MD, PhD [address] [place] [address] [email or web address] 08/27/2025 9:10 AM EDT Office Visit [facility] [address] [place] [address] Pooja Jacob MD 75 [facility]3 [place] [address] [email or web address] 09/24/2025 10:30 AM EDT Office Visit [facility] [address] [facility], [address] [place] [address] Magnus Perez MD 55 [facility] YA 5B [place] [address] [email or web address] documented as of this encounter Visit Diagnoses Not on filedocumented in this encounter Care Teams Abstract Writer Relationship Specialty Start Date End Date Brett Sharma NP [address] [place] [address] PCP - General Family Medicine 08/16/21 Arturo Lawrence MD, PhD 55 [facility] Outpatient Care[facility] 7B [place] [address] [email or web address] Hematology and Oncology 07/06/17 documented as of this encounter Additional Source Comments The information contained in this document represents components of the legal health record. It is not the complete legal health record.[facility]
--- OUTSIDE RECORDS SUMMARY | 2025-04-04 16:49 | XMS_ITS | Encounter Summary ---
Author Organization [facility] Address [address] [facility] [address] [place] [address] Phone Care Team Providers Care Manager Long Term Care Name Role Phone Arturo Lawrence MD, PhD Unavailable [phone] Brett Sharma NP Primary Care Provider + Reason for Visit * Reason Onset Date Comments s/p procedure question 10/08/2023 Shannen Hernandez Encounter Details Date Type Department Care Team (Late st Contact Info) Description 10/08/2023 Telephone [facility] Gynecology [address] [facility], 4th Floor, [address] [place] [address] Shannen Hayward MD [address] [place] [address] [email or web address] s/p procedure question (Shannen Hayward) [...] Description 04/13/2025 3:00 PM EST Office Visit [facility] [address] [facility], [address] [place] [address] Miki Blackwood MD 55 [facility] [address] [place] [address] [email or web address] 04/29/2025 10:30 AM EST Office Visit [facility] [address] [facility], 5th [place] [address] Ranjit Morley MD [address] [address] [email or web address] 05/18/2025 8:45 AM EST Evaluation [facility] Audiology [address] [address] Charissa Lew AuD [address] [place] [address] [email or web address] 05/18/2025 9:30 AM EST Office Visit [facility] Otology [address] [address] Arturo Bunn MD, PhD [address] [place] [address] [email or web address] 08/27/2025 9:10 AM EDT Office Visit [facility] Cardiovascular Clinic [address] [place] [address] Pooja Jacob MD 75 [facility]3 [place] [address] [email or web address] 09/24/2025 10:30 AM EDT Office Visit [facility] [address] [facility], [address] [place] [address] Magnus Perez MD 55 [facility] Y[address] 5[address] [place] [address] [email or web address] documented as of this encounter Visit Diagnoses Not on filedocumented in this encounter Care Teams Manager Long Term Care Relationship Specialty Start Date End Date Brett Sharma NP [address] [facility] [place] [address] PCP - General Family Medicine 08/16/21 Arturo Lawrence MD, PhD 55 [facility] Outpatient CareYAW 7B [place] [address] [email or web address] Hematology and Oncology 07/06/17 documented as of this encounter Additional Source Comments The information contained in this document represents components of the legal health record. It is not the complete legal health record.[facility]
--- OUTSIDE RECORDS SUMMARY | 2025-04-04 16:49 | XMS_ITS | Encounter Summary ---
Author Organization [facility] Address [address] [place] [address] Care Team Providers Care Medical Coding Manager Name Role Phone Brett Sharma NP Primary Care Provider + [phone] Isis Young RN Unavailable [phone] Tip Campos MD Unavailable Magnus Perez MD Unavailable [phone] System, Provider Not In Unavailable Unavaila Miki Diana MD Unavailable [phone] Raúl Pike MD Unavailable [phone] Jorge Moreno DO Unavailable [phone] Arturo Bunn MD Unavailable Leatha Mc Unavailable [phone] Encounter Details Date Type Department Care Team (Late st Contact Info) Description 01/22/2025 Scanned Document [facility] [id number] [address] [place] [phone] Tip Campos MD [address] [place] [address] [place] [address] Social History Tobacco Use Types Packs/Day [...] 1:00 PM EST Office Visit [facility]ive [facility] [place] [address] [phone] Clyde Martin PA [address] [place] [address] 06/01/2025 10:00 AM EST Office Visit [facility] Neurosurgery [place] [address] [phone] Samara Mendoza PA-C [address] [phone] documented as of this encounter Visit Diagnoses Not on filedocumented in this encounter Care Teams Medical Coding Manager Relationship Specialty Start Date End Date Brett Sharma NP [address] [place] [address] PCP - General Family Medicine 03/03/24 Isis Young RN 80 [place] [address] Nurse Navigator Surgery, Neurosurgery 01/25/25 Tip Campos MD [address] [address] Surgery, Neurosurgery 02/01/25 Magnus Perez MD [address] [place] [phone] Cardiovascular Disease 02/01/25 System, Provider Not In [address] [place] [phone] Hematology Oncology 02/01/25 Miki Blackwood MD [address] [place] [address] Endocrinology 02/01/25 Raúl Pike MD [address] [place] [address] Gastroenterology 02/01/25 Jorge Moreno DO 269 [facility] 201 [place] [address] Immunology 02/01/25 Arturo Bunn MD [address] [place] [address] Otolaryngology 02/01/25 Leatha Mc PA [address] [address] Physician Pipe And Boiler Covers Supervisor Surgery, Neurosurgery 02/05/25 documented as of this encounter
--- OUTSIDE RECORDS SUMMARY | 2025-04-04 16:49 | XMS_ITS | Encounter Summary ---
Author Organization [facility] Address [address] [facility] [address] [place] [address] Phone Care Team Providers Care Sponge Clipper Name Role Phone Arturo Lawrence MD, PhD Unavailable [phone] Brett Sharma NP Primary Care Provider + Encounter Details Date Type Department Care Team (Late st Contact Info) Description 11/30/2021 Procedure Pass [facility] [address] [facility], [address] [place] [id number] Social History Tobacco Use Types Packs/Day Years [...] Description 04/13/2025 3:00 PM EST Office Visit [facility] [address] [facility], [address] [place] [address] Miki Blackwood MD [address] [place] [address] [address] [place] [address] [email or web address] 04/29/2025 10:30 AM EST Office Visit [facility] 55 [facility], 5th [place] [address] Ranijt Morley MD [address] [address] [email or web address] 05/18/2025 8:45 AM EST Evaluation [facility] Audiology [address] [address] Charissa Lew AuD 243 [place] [address] [email or web address] 05/18/2025 9:30 AM EST Office Visit [facility] Otology [address] [address] Arturo Bunn MD, PhD [address] [place] [address] [email or web address] 08/27/2025 9:10 AM EDT Office Visit [facility] Cardiovascular Clinic 70 [place] [address] Pooja Jacob MD [address] [address] [email or web address] 09/24/2025 10:30 AM EDT Office Visit [facility] Card[facility] [address] [facility], [address] [place] [address] Magnus Perez MD 55 [facility] [address] [place] [address] [email or web address] documented as of this encounter Visit Diagnoses Not on filedocumented in this encounter Care Teams Sponge Clipper Relationship Specialty Start Date End Date Brett Sharma NP [address] [place] [address] PCP - General Family Medicine 08/16/21 Arturo Lawrence MD, PhD [address] [place] [address] [facility] 7B [place] [address] [email or web address] Hematology and Oncology 07/06/17 documented as of this encounter Additional Source Comments The information contained in this document represents components of the legal health record. It is not the complete legal health record.[facility]
--- OUTSIDE RECORDS SUMMARY | 2025-04-04 16:49 | XMS_ITS | Encounter Summary ---
Author Organization [facility] Address [address] [facility] [address] [place] [address] Phone Care Team Providers Care Geropsychologist Name Role Phone Pcp, Not Required Primary Care Provider Arturo Castillo MD, PhD Unavailable [phone] Rylee Zendejas OPERATOR VACUUM Primary Care Provider Unknown, Unknown Primary Care Provider Rylee Sanchez OPERATOR VACUUM Primary Care Provider Brett Sharma OPERATOR VACUUM Primary Care Provider + Encounter Details Date Type Department Care Team (Late st Contact Info) Description 02/03/2018 Procedure Pass [facility] Imaging 55 [place] [address] Social History Tobacco Use Types Packs/Day Years [...] Description 04/13/2025 3:00 PM EST Office Visit [facility] [address] [facility], [address] [place] [address] Miki Blackwood MD [address] [place] [address] [address] [place] [address] [email or web address] 04/29/2025 10:30 AM EST Office Visit [facility] 55 [facility], 5th [place] [address] Ranjit Morley MD 15 [facility] 535 [place] [address] MARCELA@[facility] 05/18/2025 8:45 AM EST Evaluation [facility] [place] [address] [address] Charissa Lew AuD [address] [place] [phone] [email or web address] 05/18/2025 9:30 AM EST Office [place] [facility] [place] [address] [address] Arturo Bunn MD, PhD [address] [place] [phone] [email or web address] 08/27/2025 9:10 AM EDT Office Visit [facility] Cardiovascular Clinic 70 [place] [address] Pooja Jacob MD [address] [address] [email or web address] 09/24/2025 10:30 AM EDT Office Visit [facility] Cardiology [facility] [address] [facility], [address] [place] [address] Magnus Perez MD 55 [facility] YAW 5[address] [place] [address] [email or web address] documented as of this encounter Visit Diagnoses Not on filedocumented in this encounter Care Teams Geropsychologist Relationship Specialty Start Date End Date Pcp, Not Required PCP - General 08/24/16 04/26/19 Rylee Zendejas, SELWYN [address] [place] [address] [email or web address] PCP - General Family Medicine 04/27/19 06/15/19 Unknown, Unknown, [address] [place] [address] PCP - General 06/16/19 06/22/19 Rylee Zendejas NP [address] [place] [address] [place] [address] [email or web address] PCP - General Family Medicine 06/23/19 08/15/21 Brett Sharma, SELWNY [address] [place] [address] [place] [address] PCP - General Family Medicine 08/16/21 Arturo Lawrence MD, PhD [address] [place] [address] Outpatient CareW 7B [place] [address] [email or web address] Hematology and Oncology 07/06/17 documented as of this encounter Additional Source Comments The information contained in this document represents components of the legal health record. It is not the complete legal health record.[facility]
--- OUTSIDE RECORDS SUMMARY | 2025-04-04 16:49 | XMS_ITS | Clinical Summary ---
Author Organization [facility] Address [address] [address] Phone Care Team Providers Care Senior Pl Sql Developer Name Role Phone Arturo Lawrence MD, PhD Unavailable [phone] Brett Sharma NP Primary Care Provider + Allergies Active Allergy Reactions Criticality Noted Date Comments [place]inta Oil Rash Low 04/04/2017 Amoxicillin-Pot Clavulanate Anaphylaxis High 10/19/2013 Flavoring Agent (Bulk) Rash Low 04/04/2017 Meperidine Swelling 05/03/2017 Doxycycline Hyclate Anaphylaxis High 05/03/2017 Ibuprofen 05/23/2022 Throat tightness feels like asthma attack Latex, Natural Rubber Rash Low 05/21/2019 Morphine Itching,Swelling 10/19/2013 Other 08/28/2022 turnip Oxycodone-Acetaminophen Swelling 05/03/2017 Ok with tylenol Prednisone Neuropathy Medium 08/28/2022 [place] Hives Medium 04/04/2017 Tramadol Itching Low 09/12/2023 [...] a review, she has been followed at [facility] in [place]. A prior echocardiogram reports mild posterior mitral [...] the study from July 2017 done in [facility]. She will try to send me [...] repeat echocardiogram in July 2018 at the [facility] facility and then one week later an office visit with me to review the findings. Follow up in July 2018, one week after the repeat echocardiogram. 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 Lawrence for hemochromatosis and receives therapeutic phlebotomy. There is a plan from her varnishing machine operator, Dr. Castle at [place] to perform a cardiac MRI to assess [...] Type Department Care Team Description 02/01/2025 Telephone [facility] Card[facility] 55 [place] [address] Magnus Perez MD 01/25/2025 Telephone [facility] [address] [facility], [address] [place] [address] Magnus Perez MD 01/20/2025 Ancillary Orders [facility] 55 [place] [address] Cesario, MD Cesario 01/19/2025 4:26 PM EDT - 01/19/2025 11:59 PM EDT Hospital Encounter [facility] [address] [place] [address] Jorge Moreno DO Discharge Disposition: Home or Self Care 01/19/2025 Transcribe Orders [facility] 30 [place] [address] Jorge Moreno DO Adverse food reaction, subsequent encounter (Primary Dx); Allergy to other foods 01/18/2025 Orders Only [facility] Center for Hematology [address] [facility], 7th Floor, [address] [place] [address] Arturo Lawrence MD, PhD 01/17/2025 - 01/17/2025 11:59 PM EDT Hospital Encounter [facility] 55 [place] [address] Unknown, Unknown, MD Discharge Disposition: Home or Self Care 01/15/2025 11:30 AM EDT Evaluation [facility] Audiology [address] [address] Arturo Bunn MD, PhD Edison Alecia Yangwell Sensorineural hearing loss (SNHL) of both ears (Primary Dx) 01/15/2025 11:00 AM EDT Evaluation [facility] Audiology [address] [address] Arturo Bunn MD, PhD Sharon Borrego AuD Sensorineural hearing loss, bilateral 01/15/2025 9:30 AM EDT Office Visit [facility] Otology [address] [address] Arturo Bunn MD, PhD Sudden left hearing loss (Primary Dx); Sensorineural hearing loss (SNHL), bilateral 01/15/2025 Transcribe Orders [facility] Audiology [address] [address] Arturo Bunn MD, PhD Hearing disorder, unspecified laterality (Primary Dx) 01/06/2025 1:10 PM EDT - 01/06/2025 11:59 PM EDT Hospital Encounter [facility] [address] [place] [address] Jorge Moreno DO Discharge Disposition: Home or Self Care 01/06/2025 Transcribe Orders [facility] Main [address] [place] [address] Jorge Moreno DO Anaphylaxis, subsequent encounter (Primary Dx) 01/04/2025 12:08 AM EDT - 01/04/2025 2:28 AM EDT Emergency [facility] [address] [place] [address] Discharge Disposition: Home or Self Care from [...] have you moved in the past 12 sat ths? Unable to assess 01/04/2025 Paying for [...] Description 04/13/2025 3:00 PM EST Office Visit [facility] [address] [facility], [address] [place] [address] Miki lBackwood MD [address] [place] [address] [address] [place] [address] KALPANA@[email or web address] 04/29/2025 10:30 AM EST Office Visit [facility] [address] [place] [address], 5th [place] [address] Ranjit Morley MD [address] [place] [address] MARCELA@[email or web address] 05/18/2025 8:45 AM EST Evaluation [facility] Audiology [facility] [address] [address] Charissa Lew AuD 243 [place] [address] [email or web address] 05/18/2025 9:30 AM EST Office Visit [facility] Otology [facility] [address] [address] Arturo Bunn MD, PhD 243 [place] [address] [email or web address] 08/27/2025 9:10 AM EDT Office Visit [facility] Cardiovascular Clinic 70 [place] [address] Pooja Jacob MD [address] [address] NINI@[facility] 09/24/2025 10:30 AM EDT Office Visit [facility] [address] [facility], [address] [place] [address] Magnus Perez MD [address] [address] [email or web address] Health Maintenance Due Date Last Done Comments [...] this topic Medical Devices Implanted Type Area Nurse Gynecology Device Identifier Shelf Expiration Date Model / Serial / Lot Dental-Left Upper Procedures Procedure Name Priority Date/Time Associated Diagnosis Comments ALLAN IGE Routine 01/19/2025 4:41 PM EDT Adverse food reaction, subsequent encounter Allergy to other foods IMMUNOGLOBULIN E, TOTAL Routine 01/20/20 4:41 PM EDT Anaphylaxis, subsequent encounter MRI SPINE MUSCULOSKELETAL FOCUS OUTSIDE (NO INTERPRETATION) Routine 01/17/2025 12:00 AM EDT AUDIOLOGY ORDERS 01/15/2025 11:1 3 AM EDT THYROID STIMULATING HORMONE (TSH) Routine 12/24/2024 4:54 PM EDT Hypothyroidism, postop Thyroid cancer from Last 3 Months or Most Recently Relevant to Health Maintenance Results * Allan IgE (01/19/2025 4:41 PM EDT) ALLAN IGE <0.10 <0.70 kU/L [facility]/PATH SUPERIOR Comment: (NOTE) Class 0 (Negative <0.10) ADDITIONAL INFORMATION This test was developed and its performance characteristics determined by [facility] in a manner consistent with CLIA requirements. This test has not been cleared or approved by the U.S. Food and Drug Administration. Blood 01/19/2025 4:41 PM EDT 01/19/2025 4:47 PM EDT Jorge Bhavani [employer] LAB BLOOD ORDERABLES Final R esult Performing Organization Address [facility] Co de Phone Number [facility] MED/PATH [address] [place] [address] * Immunoglobulin E, total (01/19/2025 4:41 PM EDT) IGE 27.8 <=214 kU/L [facility]/PATH SUPERIOR Blood 01/19/2025 4:41 PM EDT 01/19/2025 4:47 PM EDT Jorge Bhavani [facility] LAB BLOOD BKR ORDERABLES Fin al Result Performing Organization Address [facility] Phone Number [facility] MED/PATH [address] [place] [address] * MRI Spine (Bone) Outside (No Interpretation) (01/17/2025 12:00 AM EDT) Narrative [facility] IMG INTERFACES - 01/20/2025 1:35 PM EDT This study is for PACS storage only and not for interpretation. us Unknown Unknown MD IMG OUTSIDE IMAGING W/OUT INT ERPRETATION Final Result Performing Organization Address [facility] de Phone Number [facility] IMG INTERFACES * Audiology Orders (01/15/2025 11:13 AM EDT) 01/15/2025 11:1 3 AM EDT us Provider Not In System PhD AUDIOLOGY SERVICES OR DERABLES Final Result Performing Organization Address [facility] de Phone Number DR BERNAL AUD * TSH (12/24/2024 4:54 PM EDT) TSH 0.47 0.27 - 4.20 uIU/mL [facility] Blood 12/24/2024 4:54 PM EDT 12/24/2024 5:01 PM EDT us Miki Blackwood MD LAB BLOOD BKR ORDERABLES F inal Result [facility] [address] [place] [address] from Last 3 Months or Most Recently Relevant to Health Maintenance Insurance AENA PPO AETNA PPO AETNA PPO AETNA PPO AETNA PPO AETNA PPO AETNA PPO AETNA PPO AETNA PPO AETNA PPO Care Teams Senior Pl Sql Developer Relationship Specialty Start Date End Date Brett Sharma NP [address] [place] [address] PCP - General Family Medicine 08/16/21 Arturo Lawrence MD, PhD [address] [place] [address] [address] [email or web address] Hematology and Oncology 07/06/17 Additional Source Comments The information contained in this document represents components of the legal health record. It is not the complete legal health record.[facility]
--- OUTSIDE RECORDS SUMMARY | 2025-04-04 16:49 | XMS_ITS | Encounter Summary ---
Author Organization [facility] Address [address] [facility] [address] [place] [address] Phone Care Team Providers Care Computer Teacher Name Role Phone Arturo Lawrence MD, PhD Unavailable [phone] Brett Sahrma NP Primary Care Provider + Encounter Details Date Type Department Care Team (Late st Contact Info) Description 09/28/2022 Procedure Pass [facility] [place] [address] [facility], 6th [place] [address] Social History Tobacco Use Types Packs/Day Years [...] 04/13/2025 3:00 PM EST Office Visit [facility] [address] [facility], [address] [place] [address] Miki Blackwood MD 55 [facility] [address] [place] [address] KALPANA@[email or web address] 04/29/2025 10:30 AM EST Office Visit [facility] Associates 55 [facility], 5th [place] [address] Ranjit Morley MD 15 [facility] 535 [place] [address] MARCELA@[email or web address] 05/18/2025 8:45 AM EST Evaluation [facility] Audiology [address] [address] Charissa Lew AuD [address] [place] [address] Amanda@[email or web address] 05/18/2025 9:30 AM EST Office Visit [facility] Otology [address] [address] Arturo Bunn MD, PhD [address] [place] [address] [email or web address] 08/27/2025 9:10 AM EDT Office Visit [facility] Cardiovascular Clinic 70 [place] [address] Pooja Jacob MD [address] [address] [email or web address]@[email or web address] 09/24/2025 10:30 AM EDT Office Visit [facility] Cardiology [place] [facility] [address] [facility], [address] [place] [address] Magnus Perez MD [address] [address] [email or web address] documented as of this encounter Visit Diagnoses Not on filedocumented in this encounter Care Teams Computer Teacher Relationship Specialty Start Date End Date Brett Sharma NP [address] [place] [address] PCP - General Family Medicine 08/16/21 Arturo Lawrence MD, PhD 55 [facility] Outpatient CareYAW 7B [place] [address] [email or web address] Hematology and Oncology 07/06/17 documented as of this encounter Additional Source Comments The information contained in this document represents components of the legal health record. It is not the complete legal health record.[facility]
--- OUTSIDE RECORDS SUMMARY | 2025-04-04 16:49 | XMS_ITS | Encounter Summary ---
Author Organization [facility] Address [address] [place] [address] Phone Care Team Providers Care Home Sales Consultant Name Role Phone Arturo Lawrence MD, PhD Unavailable [phone] Brett Sharma NP Primary Care Provider + Encounter Details Date Type Department Care Team (Late st Contact Info) Description 10/04/2023 Procedure Pass [facility] Cardiology [facility] [place] [address] [facility], [address] [place] [address] Social History Tobacco Use Types Packs/Day Years [facility] [address] [facility], [address] [place] [address] Miki Blackwood MD 55 [facility] [address] [place] [address] [email or web address] 04/29/2025 10:30 AM EST Office Visit [facility] Associates [address] [facility], 5th [place] [address] Ranjit Morley MD [address] [address] [email or web address] 05/18/2025 8:45 AM EST Evaluation [facility] Audiology [address] [address] Charissa Lew AuD 243 [place] [address] [email or web address] 05/18/2025 9:30 AM EST Office Visit [facility] Otology [address] [address] Arturo Bunn MD, PhD [address] [place] [address] [email or web address] 08/27/2025 9:10 AM EDT Office Visit [facility] Clinic 70 [place] [address] Pooja Jacob MD [address] [address] [email or web address] 09/24/2025 10:30 AM EDT Office Visit [facility] Cardiology [facility] [address] [facility], [address] [place] [address] Magnus Perez MD 55 [facility] [address] [place] [address] [email or web address] documented as of this encounter Visit Diagnoses Not on filedocumented in this encounter Care Teams Home Sales Consultant Relationship Specialty Start Date End Date Brett Sharma, SELWYN [address] [place] [address] PCP - General Family Medicine 08/16/21 Arturo Lawrence MD, PhD 55 [facility] Outpatient CareY[facility] [address]B [place] [address] [email or web address] Hematology and Oncology 07/06/17 documented as of this encounter Additional Source Comments The information contained in this document represents components of the legal health record. It is not the complete legal health record.[facility]
--- OUTSIDE RECORDS SUMMARY | 2025-04-04 16:49 | XMS_ITS | Encounter Summary ---
Author Organization [facility] Address [address] [place] [address] Care Team Providers Care Steward/Steward[employer] Dining Car Name Role Phone Brett Sharma NP Primary Care Provider [phone] Isis Young RN Unavailable [phone] Tip Campos MD Unavailable Magnus Perez MD Unavailable [phone] System, Provider Not In Unavailable Unavaila Miki Diana MD Unavailable [phone] Raúl Pike MD Unavailable Jorge Moreno DO Unavailable [phone] Arturo Bunn MD Unavailable Leatha Mc Unavailable [phone] Encounter Details Date Type Department Care Team (Late st Contact Info) Description 01/27/2025 Scanned Document [facility] Neurosurgery [address] [place] [address] Tip Campos MD [address] [place] [address] 1003 [place] [address] Social History Tobacco Use Types [...] PM EST Office Visit [facility] Plastic & Reconstructive Surgery [address] [address] Clyde Martin PA [address] [place] [address] 06/01/2025 10:00 AM EST Office Visit [facility] Neurosurgery [address] [address] Samara Mendoza PA-C [address] [address] documented as of this encounter Visit Diagnoses Not on filedocumented in this encounter Care Teams Steward/[employer] Dining Car Relationship Specialty Start Date End Date Brett Sharma NP [address] [place] [address] PCP - General Family Medicine 03/03/24 Isis Young RN 80 [place] [address] Nurse Navigator Surgery, Neurosurgery 01/25/25 Tip Campos MD [address] [address] Surgery, Neurosurgery 02/01/25 Magnus Perez MD [address] [place] [phone] Cardiovascular Disease 02/01/25 System, Provider Not In [address] [place] [phone] Hematology Oncology 02/01/25 Miki Blcakwood MD [address] [place] [address] Endocrinology 02/01/25 Raúl Pike MD [address] [place] [address] Gastroenterology 02/01/25 Jorge Moreno DO [address] [facility] [address] [place] [address] Immunology 02/01/25 Arturo Bunn MD [address] [place] [address] Otolaryngology 02/01/25 Leatha Mc PA [address] [place] [address] Physician Public Health Analyst Surgery, Neurosurgery 02/05/25 documented as of this encounter
--- OUTSIDE RECORDS SUMMARY | 2025-04-04 16:49 | XMS_ITS | Encounter Summary ---
Author Organization [facility] Address [address] [facility] [address] [place] [address] Phone Care Team Providers Care Green End Department Supervisor Name Role Phone Arturo Lawrence MD, PhD Unavailable [phone] Brett Sharma NP Primary Care Provider + Encounter Details Date Type Department Care Team (Late Contact Info) Description 09/25/2023 Procedure Pass [facility] [address] [place] [id number] Social History Tobacco Use Types Packs/Day Years [...] [facility] 15 [facility], [address] [place] [address] Miki Blackwood MD 55 [facility] [address] [place] [address] [email or web address] 04/29/2025 10:30 AM EST Office Visit [facility] 55 [facility], 5th [place] [address] Ranjit Morley MD 15 [facility] 535 [place] [address] [email or web address] 05/18/2025 8:45 AM EST Evaluation [facility] Audiology [address] [address] Charissa Lew AuD [address] [place] [address] [email or web address] 05/18/2025 9:30 AM EST Office Visit [facility] Otology [address] [address] Arturo Bunn MD, PhD [address] [place] [address] [email or web address] 08/27/2025 9:10 AM EDT Office Visit [facility] Cardiovascular Clinic 70 [place] [address] Pooja Jacob MD [address] [address] [email or web address] 09/24/2025 10:30 AM EDT Office Visit [facility] Cardiology [facility] [address] [facility], [address] [place] [address] Magnus Perez MD 55 [facility] [address] [place] [address] [email or web address] documented as of this encounter Visit Diagnoses Not on filedocumented in this encounter Care Teams Green End Department Supervisor Relationship Specialty Start Date End Date Brett Sharma NP [address] [place] [address] PCP - General Family Medicine 08/16/21 Arturo Lawrence MD, PhD [address] [place] [address] Outpatient CareYAW [address]B [place] [address] [email or web address] Hematology and Oncology 07/06/17 documented as of this encounter Additional Source Comments The information contained in this document represents components of the legal health record. It is not the complete legal health record.[facility]
--- OUTSIDE RECORDS SUMMARY | 2025-04-04 16:49 | XMS_ITS | Patient Health Record ---
Author Organization [facility] Address [address] [place] [address] Care Team Providers Care Patch Driller Name Role Phone Rylee Dang Primary Care Provider Raúl Turner Jr Unavailable Allergies Allergen (clinical drug ingredient) Drug/Non Drug Allergy documented on EMR Reaction Allergy Type Onset Date Status meperidine Demerol (uncoded) Unknown Allergy A ctive acetaminophen / oxycodone Percocet (uncoded) Unknown Allergy Active Vicodin (uncoded) Unknown Allergy Ac tive Latex Gloves Unknown Drug Allergy Acti ve prednisone Prednisone neuropathy Drug Allergy Acti ve Results Component Value Reference Range Notes Ur Preg Test Reviewed date:09/09/2024 08:27:13 AM Interpretation: Performing Lab:[facility], [address] [place] [id number] Notes/Report: Urine NEGATIVE NEGATIVE This test was developed to detect early . False negative results may occur after the 5th - 7th week of when using this test method. If clinically indicated, consider a serum hCG. Pathology Reviewed date:09/11/2024 04:05:40 PM Interpretation: Performing Lab:[address] [address] Notes/Report: Reason For Referral No Information Medications Medication SIG (Take, Route, Frequency, Duration) Notes Start Date End Date Status Ventolin HFA 108 (90 Base) MCG/ACT Aerosol Solution 2 puffs as needed Inhalation every 6 hrs/prn Active Pantoprazole Sodium 40 MG Tablet Delayed Release TAKE 1 TABLET BY MOUTH EVERY DAY FOR 30 DAYS; Duration: 90 Active Xiidra 5 % Solution INSTILL 1 DROP INTO BOTH EYES TWICE A DAY Ophthalmic; Duration: 30 Active Symbicort 160-4.5 MCG/ACT Aerosol 2 puffs Inhalation Twice a day Active Esomeprazole Magnesium 40 MG Capsule Delayed Release TAKE 1 CAPSULE BY MOUTH EVERY DAY; Duration: 90 Active Levothyroxine Sodium 125 MCG Tablet Oral; Duration: 90 Active Calcitriol 0.25 MCG Capsule Oral; Duration: 90 Active Immunizations Vaccine Route Administration Date Status Comme nts Influenza Unknown 02/04/2018 Administered Influenza Unknown 11/20/2018 Administered Influenza Unknown 01/27/2020 Administered Influenza Unknown 05/10/2021 Administered Social History Social History Additional Details Category Social Info Options Details Miscellaneous: Marital status: 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 Problems Problem Type SNOMED Code ICD Code Onset Dates Problem Status W/U Status Risk Notes Problem Colon cancer screening (533850975) Colon cancer screening (Z12.11) Active confirmed Problem 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 Problem Dysphagia (13530661) Dysphagia (R13.10) Active confirmed Problem Gastroesophageal reflux disease (293185612) Gastroesophageal reflux disease (K21.9) Active confirmed Problem Elevated liver enzymes level (595884425) Elevated liver function tests (R79.89) Active confirmed Problem Dysphagia (56343031) Dysphagia, unspecified type (R13.10) Active confirmed Problem Hepatic hemangioma (95916477) Hepatic hemangioma (D18.03) Active confirmed Problem Elevated liver enzymes level (755147892) Elevated liver function tests (R94.5) Active confirmed Problem Gastroesophageal reflux disease (560105068) Gastroesophageal reflux disease, unspecified whether esophagitis present (K21.9) Active confirmed Encounters Encounter Location Date Provider Diagnosis [facility] Outpatient [address] [place] [phone] 09/08/2024 Raúl Pike Jr Gamino esophagus K22.70 [facility] [address] [place] [phone] 09/11/2024 Raúl Pike Jr [facility] [address] [place] [phone] 09/16/2024 Raúl Pike Jr Assessments Encounter Date [...] Insured Coverage Start Date Coverage End Date [facility] [address] [place] [id number] [phone] [id number] ONDINA WINN Self - patient is the insured Medical (General) History Medical History History ICD Code Asthma hemochromatosis, Dr. Arturo Lawrence [facility] mitral valve prolapse Hepatic hemangioma Elevated liver [...]
--- OUTSIDE RECORDS SUMMARY | 2025-04-04 16:49 | XMS_ITS | Encounter Summary ---
Author Organization [facility] Address [address] [address] Phone Care Team Providers Care Cookie Breaker Name Role Phone Pcp, Not Required Primary Care Provider Unavaila Arturo Tong MD, PhD Unavailable [phone] Rylee Zendejas PROCESSING LEAD Primary Care Provider Unknown, Unknown Primary Care Provider Rylee Sanchez PROCESSING LEAD Primary Care Provider Brett Sharma PROCESSING LEAD Primary Care Provider + Encounter Details Date Type Department Care Team (Late st Contact Info) Description 04/07/2019 Transcribe Orders [facility] Phleb Main 30 [place] [address] Arturo Lawrence MD, PhD [address] [place] [address] [address] [email or web address] Pigment cirrhosis (Primary Dx) Social History Tobacco [...] Description 04/13/2025 3:00 PM EST Office Visit [facility] 15 [facility], [address] [place] [address] Miki Blackwood MD 55 [facility] [address] [place] [address] [email or web address] 04/29/2025 10:30 AM EST Office Visit [facility] 55 [facility], 5th [place] [address] Ranjit Morley MD [address] [address] [email or web address] 05/18/2025 8:45 AM EST Evaluation [facility] Audiology [address] [address] Charissa Lew AuD [address] [place] [address] [email or web address] 05/18/2025 9:30 AM EST Office Visit [facility] Otology [address] [address] Arturo Bunn MD, PhD [address] [place] [address] [email or web address] 08/27/2025 9:10 AM EDT Office Visit [facility] Cardiovascular Clinic 70 [place] [address] Pooja Jacob MD [address] [address] [email or web address] 09/24/2025 10:30 AM EDT Office Visit [facility] Cardiology [facility] [address] [facility], [address] [place] [address] Magnus Perez MD [address] YAW [address] [place] [address] [email or web address] documented as of this encounter Results * Ferritin (04/07/2019 9:28 AM EST) FERRITIN 22 13 - 150 ug/L [facility] Blood 04/07/2019 9:28 AM EST 04/07/2019 9:30 AM EST Arturo Lawrence MD, PhD LAB BLOOD BKR ORDERABL ES Final Result Performing Organization Address City/[facility]/ZIP Co de Phone Number [address] [address] * Iron and iron binding capacity (04/07/2019 9:28 AM EST) IRON 67 30 - 160 ug/dL [facility] IRON BINDING CAPACITY 230 228 - 428 ug/dL [facility] TRANSFERRIN SATURAT. 29 15 - 50 % [facility] Blood 04/07/2019 9:2 8 AM EST 04/07/2019 9:30 AM EST Arturo Lawrence MD, PhD LAB BLOOD BKR ORDERABL ES Final Result Performing Organization Address City/[facility]/ZIP Co de Phone Number [address] [address] documented in this encounter Visit Diagnoses Diagnosis Pigment cirrhosis- Primary Disorders of iron metabolism documented in this encounter Care Teams Cookie Breaker Relationship Specialty Start Date End Date Pcp, Not Required PCP - General 08/24/16 04/26/19 Rylee Zendejas NP [address] [place] [address] [email or web address] PCP - General Family Medicine 04/27/19 06/15/19 Unknown, Cesario, [address] [place] [address] PCP - General 06/16/19 06/22/19 Rylee Zendejas, SELWYN [address] [place] [address] [place] [address] [email or web address] PCP - General Family Medicine 06/23/19 08/15/21 Brett Sharma, SELWYN [address] [place] [address] [place] [address] PCP - General Family Medicine 08/16/21 Arturo Lawrence MD, PhD [address] [place] [address] Outpatient CareW 7B [place] [address] [email or web address] Hematology and Oncology 07/06/17 documented as of this encounter Additional Source Comments The information contained in this document represents components of the legal health record. It is not the complete legal health record.[facility]
--- OUTSIDE RECORDS SUMMARY | 2025-04-04 16:49 | XMS_ITS | Encounter Summary ---
Author Organization [facility] Address [address] [address] Phone Care Team Providers Care Summer Sessions Director Name Role Phone Pcp, Not Required Primary Care Provider Unavaila Arturo Tong MD, PhD Unavailable [phone] Rylee Zendejas UNDERPRESSER HAND Primary Care Provider Unknown, Unknown Primary Care Provider Rylee Sanchez UNDERPRESSER HAND Primary Care Provider Brett Sharma UNDERPRESSER HAND Primary Care Provider + Encounter Details Date Type Department Care Team (Late st Contact Info) Description 08/14/2018 Transcribe Orders [facility] Phleb Main 30 [place] [address] Arturo Lawrence MD, PhD [address] [place] [address] [address] [email or web address] u Social History Tobacco Use Types Packs/Day [...] PM EST Office Visit [facility] Thy[facility] Associates [address] [facility], [address] [place] [address] Miki Blackwood MD 55 [facility] [address] [place] [address] [email or web address] 04/29/2025 10:30 AM EST Office Visit [facility] 55 [facility], 5th [place] [address] Ranjit Morley MD [address] [address] [email or web address] 05/18/2025 8:45 AM EST Evaluation [facility] Audiology [address] [address] Charsisa Lew AuD [address] [place] [address] [email or web address] 05/18/2025 9:30 AM EST Office Visit [facility] Otology [address] [address] Arturo Bunn MD, PhD [address] [place] [address] [email or web address] 08/27/2025 9:10 AM EDT Office Visit [facility] Cardiovascular Clinic 70 [place] [address] Pooja Jacob MD [address] [address] [email or web address] 09/24/2025 10:30 AM EDT Office Visit [facility] Cardiology [facility] [address] [facility] [address] [place] [address] Magnus Perez MD 55 [facility] [address] [place] [address] [email or web address] documented as of this encounter Visit Diagnoses Not on filedocumented in this encounter Care Teams Summer Sessions Director Relationship Specialty Start Date End Date Pcp, Not Required PCP - General 08/24/16 04/26/19 Rylee Zendejas, SELWYN [address] [place] [address] [email or web address] PCP - General Family Medicine 04/27/19 06/15/19 Unknown, Cesario, [address] [place] [address] PCP - General 06/16/19 06/22/19 Rylee Zendejas NP [address] [place] [address] [place] [address] [email or web address] PCP - General Family Medicine 06/23/19 08/15/21 Brett Sharma, SELWYN [address] [place] [address] [place] [address] PCP - General Family Medicine 08/16/21 Arturo Lawrence MD, PhD 55 [place] [facility] Outpatient CareYAW 7[address] [place] [address] [email or web address] Hematology and Oncology 07/06/17 documented as of this encounter Additional Source Comments The information contained in this document represents components of the legal health record. It is not the complete legal health record.[facility]
--- OUTSIDE RECORDS SUMMARY | 2025-04-04 16:49 | XMS_ITS | Clinical Summary ---
Author Organization [facility] Prior to 09/19/[address] [place] [address] Care Team Providers Care Beater Worker Helper Name Role Phone Brett Sharma Primary Care Provider [phone] Allergies Active Allergy Reactions Criticality Noted Date Comments Amoxicillin-Pot Clavulanate Anaphylaxis High 10/19/2013 Cinnamon 12/31/2023 Doxycycline Anaphylaxis High 05/03/2017 Hydrocodone-Acetaminoph en Swelling 05/03/2017 Ibuprofen Anaphylaxis High 12/31/2023 Latex Rash Low 05/21/2019 Meperidine Swelling 05/03/2017 Morphine 09/12/2021 Other Rash Low 04/04/2017 turnips Oxycodone-Acetaminophen Rash,Swelling Low 8 Prednisone Other (See Comments) Medium 08/28/2022 [place] Hives Medium 04/04/2017 Tramadol Itching Low 09/12/2023 [...] age to complete this topic Care Teams Beater Worker Helper Relationship Specialty Start Date End Date Brett Sharma [address] [facility] [place] [address] PCP - General Family Medicine 09/11/21
--- OUTSIDE RECORDS SUMMARY | 2025-04-04 16:50 | XMS_ITS | Encounter Summary ---
Author Organization [facility] Address 399 [facility] [address] [place] [address] Phone Care Team Providers Care Pharmacy Technologist Name Role Phone Arturo Lawrence MD, PhD Unavailable [phone] Brett Sharma NP Primary Care Provider + Encounter Details Date Type Department Care Team (Late st Contact Info) Description 02/12/2023 Procedure Pass [facility] PERIOPERATIVE DEPT [address] [place], [place] [id number] Social History Tobacco Use Types Packs/Day Years [...] Description 04/13/2025 3:00 PM EST Office [facility] 15 [facility], [address] [place] [address] Miki Blackwood MD 55 [facility] [address] [place] [address] [email or web address] 04/29/2025 10:30 AM EST Office [facility] 55 [facility], 5th [place] [address] Ranjit Morley MD 15 [facility] [address] [place] [address] [email or web address] 05/18/2025 8:45 AM EST Evaluation [facility] [address] [address] Charissa Lew AuD [address] [place] [phone] [email or web address] 05/18/2025 9:30 AM EST Office Visit [facility] [address] [address] Arturo Bunn MD, PhD [address] [place] [address] [email or web address] 08/27/2025 9:10 AM EDT Office Visit [facility] 70 [place] [address] Pooja Jacob MD [address] [address] [email or web address] 09/24/2025 10:30 AM EDT Office Visit [facility] [address] [facility], [address] [place] [address] Magnus Perez MD 55 [facility] [address] [place] [address] [email or web address] documented as of this encounter Visit Diagnoses Not on filedocumented in this encounter Care Teams Pharmacy Technologist Relationship Specialty Start Date End Date Brett Sharma NP [facility] [place] [address] PCP - General Family Medicine 08/16/21 Arturo Lawrence MD, PhD [address] [place] [address] Outpatient [facility] [address] [place] [address] [email or web address] Hematology and Oncology 07/06/17 documented as of this encounter Additional Source Comments The information contained in this document represents components of the legal health record. It is not the complete legal health record.[facility]
--- OUTSIDE RECORDS SUMMARY | 2025-04-04 16:50 | XMS_ITS | Encounter Summary ---
Author Organization [facility] Address [address] [address] Phone Care Team Providers Care Breakfast Host Name Role Phone Pcp, Not Required Primary Care Provider Arturo Castillo MD, PhD Unavailable [phone] Rylee Zendejas ROOM SERVICE SUPERVISOR Primary Care Provider Unknown, Unknown Primary Care Provider Rylee Sanchez ROOM SERVICE SUPERVISOR Primary Care Provider Brett Sharma ROOM SERVICE SUPERVISOR Primary Care Provider + Reason for Referral * Consultation (Elective) - Closed Specialty Diagnoses / Procedures Referred By Contact Referred To Contact Pediatric Gastroenterology Diagnoses Non-celiac gluten sensitivity System, Provider Not In, PhD [address] [address] Referral ID Status Reason Start Date Expiration Date Visits Re quested Visits Authorized [id number] Closed 08/24/2016 08/24/2017 1 1 Encounter Details Date Type Department Care Team (Late st Contact Info) Description 08/24/2016 Transcribe Orders [facility] [address] [place] [address] Pcp, Not Required Non-celiac gluten sensitivity (Primary [place] [facility] 15 [facility], [address] [place] [address] Miki Blackwood MD [address] [facility] [address] [place] [address] [email or web address] 04/29/2025 10:30 AM EST Office Visit [facility] 55 [facility], 5th [place] [address] Ranjit Morley MD [address] [address] [email or web address] 05/18/2025 8:45 AM EST Evaluation [facility] Audiology [address] [address] Charissa Lwe AuD [address] [place] [address] [email or web address] 05/18/2025 9:30 AM EST Office Visit [facility] Otology [address] [address] Arturo Bunn MD, PhD [address] [place] [phone] [email or web address] 08/27/2025 9:10 AM EDT Office Visit [facility] 70 [place] [address] Pooja Jacob MD [address] [address] [email or web address] 09/24/2025 10:30 AM EDT Office Visit [facility] [address] [facility] [facility], [address] [place] [address] Magnus Perez MD [address] [address] [email or web address] Scheduled Referrals Name Type Priority Associated Diagnoses Orde r Schedule Ambulatory referral to [facility] Pediatric GI/Nutrition Outpatient Referral Routine Non-celiac gluten sensitivity Ordered: 08/24/2016 documented as of this encounter Visit Diagnoses Diagnosis 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 PCP - General Family Medicine 04/27/19 06/15/19 Cesario, MD Cesario [address] [place] [address] PCP - General 06/16/19 06/22/19 Rylee Zendejas NP [address] [place] [address] [place] [address] [email or web address] PCP - General Family Medicine 06/23/19 08/15/21 Brett Sharma NP [address] [place] [address] [place] [address] PCP - General Family Medicine 08/16/21 Arturo Lawrence MD, PhD 55 [facility] Out[facility] [address] [place] [address] [email or web address] Hematology and Oncology 07/06/17 documented as of this encounter Additional Source Comments The information contained in this document represents components of the legal health record. It is not the complete legal health record.[facility]
--- OUTSIDE RECORDS SUMMARY | 2025-04-04 16:50 | XMS_ITS | Encounter Summary ---
Author Organization [facility] Address 399 [facility] [address] [place] [address] Phone Care Team Providers Care Evp Name Role Phone Arturo Lawrence MD, PhD Unavailable [phone] Brett Sharma NP Primary Care Provider + Encounter Details Date Type Department Care Team (Late st Contact Info) Description 06/21/2023 Procedure Pass [facility] Cardiology [address] [facility], [address] [place], [place] [id number] Social History Tobacco Use Types Packs/Day Years [...] 04/13/2025 3:00 PM EST Office Visit [facility] 15 [facility], [address] [place] [address] Miki Blackwood MD 55 [facility] [address] [place] [address] [email or web address] 04/29/2025 10:30 AM EST Office [facility] 55 [facility], 5th [place] [address] Ranjit Morley MD [address] [address] [email or web address] 05/18/2025 8:45 AM EST Evaluation [facility] [address] [address] Charissa Lew AuD [address] [place] [phone] [email or web address] 05/18/2025 9:30 AM EST Office Visit [facility] [address] [address] Arturo Bunn MD, PhD [address] [place] [address] [email or web address] 08/27/2025 9:10 AM EDT Office Visit [facility] 70 [place] [address] Pooja Jacob MD [address] [address] [email or web address] 09/24/2025 10:30 AM EDT Office Visit [facility] 52 [facility], [address] [place] [address] Magnus Perez MD 55 [facility] [address] [place] [address] [email or web address] documented as of this encounter Visit Diagnoses Not on filedocumented in this encounter Care Teams Evp Relationship Specialty Start Date End Date Brett Sharma NP [facility] [place] [address] PCP - General Family Medicine 08/16/21 Arturo Lawrence MD, PhD [address] [place] [address] Outpatient [facility] [address] [place] [address] [email or web address] Hematology and Oncology 07/06/17 documented as of this encounter Additional Source Comments The information contained in this document represents components of the legal health record. It is not the complete legal health record.[facility]
[2025-04-04 17:32] VITALS: BP 117/72; PULSE 87; RESP 18; TEMP 36.8; O2SAT 95
[2025-04-04] MEDS: iohexoL 350 MG/ML 100 ML INFUS..BTL IV (17:58)
[2025-04-04] MEDS: Albuterol Sulfate 2.5 MG, Albuterol/Iprat 2.5/0.5MG 3 ML 3 ML INHALE (18:14)
[2025-04-04 18:15] VITALS: PULSE 92; RESP 18; O2SAT 95
[2025-04-04 18:36] LABS: NT Pro B Type Natriuretic Pept 54.2 pg/mL (<300)
[2025-04-04] MEDS: Magnesium Sulfate/H2O 2 GM/50 ML PIGGYBACK IV (18:39)
--- NOTE | 2025-04-04 19:09 | PC.NURSE ---
Assumed pt care @ 1900. Pt a&ox4, no signs of distress Pt sitting up in bed speaking with visitor family at bedside Pt denies pain at this time Plan of care ongoing.
[2025-04-04 19:17] LABS: Resp Syncy Virus RNA Qual PCR POSITIVE (Negative); SARS COV2 PCR INHOUSE NEGATIVE (Negative)
--- NOTE | 2025-04-04 19:38 | PC.NURSE ---
Pt assisted to restroom with 02 sat monitoring Plan of care ongoing.
--- NOTE | 2025-04-04 19:51 | MHC.EDTECH ---
@1945 Patient did a walking 02 trial. Rm Air while sitting patient stated at 95%, While walking the patient decreased to 93%, the patient started to become Tachy HR of 121, strider sounds coming from patient while working to catch her breath and started coughing.
[2025-04-04 20:01] VITALS: O2SAT 93
--- NOTE | 2025-04-04 20:03 | PC.NURSE ---
Pt requested and given pudding Plan of care ongoing.
--- NOTE | 2025-04-04 20:44 | PM.IMHP ---
History of Present Illness Date of Service: 04/04/25 Chief Complaint: dyspnea on exertion, shortness of breath A 49-year-old female with a complex past medical history including thyroid cancer status post total thyroidectomy (2022), recent anterior cervical spinal fusion (7 weeks ago), asthma, hemochromatosis, hypertension, hyperlipidemia, mitral valve prolapse, fibromuscular dysplasia, and pre-diabetes presents with 10 days of progressive respiratory symptoms. She was diagnosed with RSV infection 5 days ago, and repeat testing today remains positive. Two weeks prior to this admission, she was treated with azithromycin for pneumonia with initial improvement. Over the past week, she has developed worsening dyspnea on exertion, profound fatigue, and markedly decreased energy level. She has been treated with methylprednisolone for one week without symptomatic improvement. She reports significant shortness of breath with minimal exertion and during speaking. She denies chest pain. She underwent a speech and swallow evaluation approximately 2?3 weeks ago and was advised to follow a modified diet. Emergency department evaluation included CTA chest negative for pulmonary embolism or pneumonia, reassuring laboratory studies, and a non-ischemic EKG. She continues to have wheezing in the lower lung wade. During ambulation in the ED, she became tachypneic and tachycardic to the 120s, with oxygen saturation around 93% on room air. Given persistent symptoms, exertional intolerance, and patient?s concern about safety at home, she does not feel comfortable with discharge and is being admitted for observation for further management and monitoring. Review of Systems Review of Systems: No fever, reports chills and weakness No chest pain, palpitation having exertional shortness of breath and coughing No abdominal pain, nausea or vomiting No urinary symptoms No any rash or wounds PMFSH Medical History Degenerative lumbar disc Neck pain with history of cervical spinal surgery Degenerative cervical disc Foraminal stenosis of cervical region Fibromuscular dysplasia of carotid artery Tinnitus Hearing loss Hernia GERD (gastroesophageal reflux disease) Thyroid cancer Elevated liver function tests Barretts esophagus Enlarged thyroid MVP (mitral valve prolapse) Fibroadenoma of left breast Renal cyst Hepatic hemangioma Hepatic adenoma Asthma Hemochromatosis Nodular thyroid disease Family History Father HTN (hypertension) Type 2 diabetes mellitus High cholesterol Ulcerative colitis Mother Pulmonary embolism Multiple myeloma Maternal Grandmother Diabetes mellitus CVD (cardiovascular disease) Maternal Grandfather CVD (cardiovascular disease) Paternal Grandfather Substance use disorder Paternal Grandmother Uterine cancer Maternal Uncle CVD (cardiovascular disease) Substance use disorder Sister No problems noted. Son No problems noted. Daughter No problems noted. Surgical History Hx of prior ablation treatment Hx of partial thyroidectomy History of esophagogastroduodenoscopy (EGD) H/O colonoscopy H/O thyroidectomy History of tonsillectomy and adenoidectomy History of section Social History Housing: House Alcohol intake: current Alcohol intake frequency: holidays/special occasions only Patient Tobacco Use Status: Never used Tobacco Smoked in Last 30 Days: No e-Cigarette/Vaping Use: Never Used Second Hand Smoke Exposure: No Use of substances other than those prescribed or required for medical reasons: No Advance Directives: No Advance Directives Information Provided: Yes Patient : No service: No Current occupational status: employed Current occupation: [employer] Current occupational exposures/hazards: No Cognitive needs: No Hearing needs: No Vision needs: No Meds Allergies Allergy/AdvReac Type Severity Reaction Status Date / Time hydrocodone (HYDROCODONE) Allergy Intermediate HIVES Verified 02/01/25 10:21 amoxicillin (Augmentin) Allergy Unknown unknown Verified 02/01/25 10:21 chlorhexidine Allergy Unknown unknown Verified 02/01/25 10:21 clavulanic acid (Augmentin) Allergy Unknown unknown Verified 02/01/25 10:21 doxycycline Allergy Unknown anaphylaxis Verified 02/01/25 10:21 ibuprofen (IBUPROFEN) Allergy Unknown HIVES Verified 02/01/25 10:21 meperidine (Demerol) Allergy Unknown unknown Verified 02/01/25 10:21 morphine (MORPHINE) Allergy Unknown HIVES Verified 02/01/25 10:21 acetaminophen Allergy Anaphylaxis Verified 02/01/25 10:21 cephalexin (From Keflex) Allergy Anaphylaxis Verified 02/01/25 10:21 latex Allergy Unknown Verified 02/01/25 10:21 lidocaine (From LidoPatch) Allergy Rash Verified 04/04/25 13:37 menthol (From LidoPatch) Allergy Rash Verified 04/04/25 13:37 mupirocin Allergy Rash Verified 04/04/25 13:37 prednisone Allergy neuropathy Verified 02/01/25 10:21 oxycodone (From PERCOCET) AdvReac Unknown HIVES Verified 02/01/25 10:21 Active Medications: Current Medications Acetaminophen (Acetaminophen 325 Mg Tablet) 650 mg PO Q6H PRN PRN Reason: Pain, Mild 1-3,fever,headache Albuterol Sulfate (Albuterol Sulfate (0.083%) 2.5 Mg/3 Ml Vial.Neb) 2.5 mg INHALE RQ4H WHILE AWAKE [facility] Albuterol/Ipratropium (Albuterol/Iprat 2.5/0.5mg 3 Ml Ampul.Neb) 3 ml INHALE Q4H PRN PRN Reason: Shortness of Breath/Wheezing Benzonatate (Benzonatate 100 Mg Capsule) 100 mg PO TID DIANE Buspirone HCl (Buspirone Hcl 5 Mg Tablet) 5 mg PO BID [facility] Calcium Carbonate (Calcium Carbonate 750 Mg Tab.Chew) 750 mg PO Q4H PRN PRN Reason: Heartburn Enoxaparin Sodium (Enoxaparin Sodium 40 Mg/0.4 Ml Syringe) 40 mg SUBCUT Q24H [facility] Guaifenesin/Dextromethorphan (Guaifenesin Dm 600/30 1 Tab Tab.Er.12h) 2 tab PO BID DIANE Levothyroxine Sodium (Levothyroxine Sodium 125 Mcg Tablet) 125 mcg PO DAILY@0600 [facility] Magnesium Hydroxide (Milk Of Magnesia 30 Ml Oral.Susp) 30 ml PO DAILY PRN PRN Reason: Constipation Melatonin (Melatonin 3 Mg Tablet) 6 mg PO BEDTIME PRN PRN Reason: Insomnia Methylprednisolone Sodium Succinate (Methylprednisolone Sod Succ 40 Mg/Ml Vial) 40 mg IVPUSH Q12H [facility] Montelukast Sodium (Montelukast Sodium 10 Mg Tablet) 10 mg PO BEDTIME DIANE Ondansetron HCl (Ondansetron Hcl 4 Mg/2 Ml Vial) 4 mg IVPUSH Q8H PRN PRN Reason: Nausea and Vomiting Pregabalin (Pregabalin 50 Mg Capsule) 50 mg PO TID [facility] Sodium Chloride (0.9 % Sodium Chloride Flush 3 Ml Syringe) 3 ml IVFLUSH QSHIFT [facility] Home Medications ?Medication ?Instructions ?Recorded ?Confirmed ?Last Taken ?Type budesonide-formoterol HFA 160 2 puff inhalation BID 04/04/22 02/01/25 09/08/24 History mcg-4.5 mcg/actuation aerosol inhaler (Symbicort) esomeprazole magnesium 40 mg 40 mg PO DAILY 06/27/23 02/01/25 09/08/24 History capsule,delayed release levothyroxine 125 mcg tablet 125 mcg PO DAILY 07/23/24 02/01/25 09/08/24 History albuterol sulfate 90 mcg/actuation 2 puff inhalation Q6H PRN 09/04/24 02/01/25 Unknown History aerosol inhaler (Ventolin HFA) Shortness Of Breath Or Wheezing calcitriol 0.25 mcg capsule 0.25 mcg PO DAILY 09/04/24 02/01/25 Unknown History cetirizine 10 mg tablet (Zyrtec) 10 mg PO DAILY 09/08/24 02/01/25 Unknown History montelukast 10 mg tablet 10 mg PO DAILY 09/08/24 02/01/25 Unknown History (Singulair) acyclovir 200 mg capsule 200 mg PO QID 02/01/25 02/01/25 Unknown History pregabalin 50 mg capsule (Lyrica) 50 mg PO TID 02/01/25 02/01/25 Unknown History Physical Exam Vital Signs and Narrative: Vital Signs: Last Vital Signs Temp 98.2 F 04/04/25 17:32 Pulse 92 04/04/25 18:15 Resp 18 04/04/25 18:15 BP 117/72 04/04/25 17:32 Pulse Ox 93 04/04/25 20:01 O2 Del Method Room Air 04/04/25 17:32 BMI result Body Mass Index 24.8 Const: Other: Constitutional : Awake, interactive, not in distress Neck : Normal inspection, Supple Cardiovascular : RRR, no JVP, no lower extremity edema Respiratory : decreased bilateral air entry, no crackles, scattered bilateral wheezes Gastrointestinal: soft, lax, Normal bowel sounds, Non tender Skin : Warm, Dry Neurological : Alert & oriented x3, No focal deficit Results Labs 04/04/25 13:57 04/04/25 13:57 Labs: Laboratory Results - last 24 hr 04/04/25 04/04/25 13:57 18:32 MCV 90.0 MCH 31.0 MCHC 34.4 RDW 12.9 Plt Count 388 D MPV 9.6 Immature Gran % (Auto) 1.5 H Neut % (Auto) 78.7 H Lymph % (Auto) 13.1 L Cass % (Auto) 6.4 Eos % (Auto) 0.1 Baso % (Auto) 0.2 Lymph # (Auto) 1.5 Cass # (Auto) 0.7 Eos # (Auto) 0.0 Baso # (Auto) 0.0 Abs Immat Gran (auto) 0.17 H Absolute Neuts (auto) 8.7 H Absolute Nucleated RBC 0.000 Nucleated RBC % (auto) 0.0 PT 12.3 INR 1.0 Anion Gap 13 Estim Creat Clear Calc 97.9 Estimated GFR > 60 Random Glucose 117 H Calcium 9.1 Magnesium 2.3 Total Bilirubin 0.3 AST 17 ALT 26 Alkaline Phosphatase 62 Troponin I High Sens < 2.7 NT-Pro-B Natriuret Pep 54.2 Total Protein 6.8 Albumin 4.3 Influenza Type A (PCR) NEGATIVE Influenza Type B (PCR) NEGATIVE RSV RNA Qual (PCR) POSITIVE A SARS-CoV-2 RNA (RT-PCR) NEGATIVE Assessment and Plan (1) Tachycardia: Status: Acute (2) Barretts esophagus: Status: Acute (3) Respiratory syncytial virus (RSV): Status: Acute (4) Asthma exacerbation: Status: Acute Plan A 49-year-old female with a complex past medical history including thyroid cancer status post total thyroidectomy (2022), recent anterior cervical spinal fusion (7 weeks ago), asthma, hemochromatosis, hypertension, hyperlipidemia, mitral valve prolapse, fibromuscular dysplasia, and pre-diabetes presents with 10 days of progressive respiratory symptoms. # Persistent asthma with acute exacerbation # Acute RSV infection Likely 2/[address] scan reveiwed: no acute infiltrates\PE Start steroid therapy IV Albuterol nebulizers Q4 and PRN Duonebs Monitor O2 sat and respiratory status Continue Trelegy inh Dysphagia report ELECTRONICS MECHANIC and MBSS done few weeks ago as the chocking sensation and aspiration resolved with modified diet continue modified diet ELECTRONICS MECHANIC Team eval if needed Hx Thyrodectomy 2/2 thyroid CA cotinue Levothyroxine GERD PPI PEnding med rec for rest of problems. DVT PPX Lovenox Quality Stroke Does the patient have a stroke diagnosis?: No VTE Prior VTE?: No VTE Risk Level:: Medical - moderate - high VTE Device Contraindication: Treatment Not Indicated VTE Drug Contraindication: N/A - Med Ordered
--- NOTE | 2025-04-04 21:24 | PC.NURSE ---
Pt medicated per jun Pt refused Lyrica, states I'm not on that anymore med wasted No mucinex in pyxis, med requested from pharm. Plan of care ongoing.
[2025-04-04] MEDS: guaiFENesin DM 600/30 1 TAB TAB.ER.12H 2 TAB PO (21:59)
--- NOTE | 2025-04-04 22:14 | PC.NURSE ---
Moe rec'd from pharmacy Pt medicated per jun Plan of care ongoing.
--- NOTE | 2025-04-04 22:17 | PC.NURSE ---
Pt reports she no longer takes lyrica, hospitalist notified and aware will d/c med Pt also reported she took her night time trelegy inhaler dose and asked if she should keep here as last time she was admitted pharmacy did not carry it, hospitalist notified and aware and ok with pt keeping her home med here with her Plan of care ongoing.
--- NOTE | 2025-04-04 23:53 | PC.NURSE ---
Pt requested neb tx, RT called and aware Plan of care ongoing.
[2025-04-04] MEDS: Albuterol/Iprat 2.5/0.5MG 3 ML AMPUL.NEB INHALE (23:56)
[2025-04-04 23:57] VITALS: PULSE 88; RESP 18; O2SAT 95
[2025-04-05] VITALS (10 sets, daily range): BP systolic 103–131; BP diastolic 60–87; PULSE 82–124; RESP 13–20; TEMP 36.3–36.8; O2SAT 93–99; BMI 24.8; BMI 25.0
--- NOTE | 2025-04-05 00:12 | PC.NURSE ---
Pt requesting if light in the hallway can be turned off Pt advised lights cannot be turned off in the hallway for safety reasons Pt requesting bed be moved, pt given eye mask Plan of care ongoing.
[2025-04-05] MEDS: 0.9 % Sodium Chloride Flush 3 ML SYRINGE IVFLUSH ×2 (00:21→09:02)
[2025-04-05 04:42] LABS: MANUAL DIFF FLAG NO
[2025-04-05 04:43] LABS: Hematocrit 38.8 % (37.0-47.0); Hemoglobin 13.4 g/dl (12.0-16.0); Imm Gran Abs Auto 0.14 X10*3/uL (0.00-0.03); Imm Gran Pct Auto 1.1 % (0.0-0.4); Lymphocytes Absolute Auto 1.2 X10*3/uL (1.2-4.9); Mean Corpuscular HGB Conc 34.5 g/dl (31.0-35.0); Mean Corpuscular Hemoglobin 30.9 pg (27.0-33.0); Mean Corpuscular Volume 89.6 fL (80.0-98.0); NRBC Abs Auto 0.000 X10*3/uL (0.0-0.012); NRBC Pct Auto 0.0 /100WBC (0.0-0.2); Platelet Count 353 X10*3/uL (160-400); Red Blood Count 4.33 X10*6/uL (4.20-5.50); White Blood Count 12.6 X10*3/uL (4.8-10.8)
[2025-04-05 04:59] LABS: Anion Gap 12 (12-20); Blood Urea Nitrogen 14 mg/dL (9-16); Calcium 8.8 mg/dL (8.4-10.2); Carbon Dioxide 24 mmol/L (22-29); Chloride 107 mmol/L (96-108); Creatinine Clr Calc Pharmacy 97.9; Estimated Glomerular Filt Rate > 60; Potassium 4.2 mmol/L (3.3-5.1); Sodium 139 mmol/L (135-145)
[2025-04-05] MEDS: Albuterol/Iprat 2.5/0.5MG 3 ML AMPUL.NEB INHALE ×2 (05:28→15:03)
--- NOTE | 2025-04-05 06:50 | HO.NURTONUR ---
Chief Complaint: dyspnea on exertion, shortness of breath A 49-year-old female with a complex past medical history including thyroid cancer status post total thyroidectomy (2022), recent anterior cervical spinal fusion (7 weeks ago), asthma, hemochromatosis, hypertension, hyperlipidemia, mitral valve prolapse, fibromuscular dysplasia, and pre-diabetes presents with 10 days of progressive respiratory symptoms. She was diagnosed with RSV infection 5 days ago, and repeat testing today remains positive. Two weeks prior to this admission, she was treated with azithromycin for pneumonia with initial improvement. Over the past week, she has developed worsening dyspnea on exertion, profound fatigue, and markedly decreased energy level. She has been treated with methylprednisolone for one week without symptomatic improvement. She reports significant shortness of breath with minimal exertion and during speaking. She denies chest pain. She underwent a speech and swallow evaluation approximately 2?3 weeks ago and was advised to follow a modified diet. Emergency department evaluation included CTA chest negative for pulmonary embolism or pneumonia, reassuring laboratory studies, and a non-ischemic EKG. She continues to have wheezing in the lower lung wade. During ambulation in the ED, she became tachypneic and tachycardic to the 120s, with oxygen saturation around 93% on room air. Given persistent symptoms, exertional intolerance, and patient?s concern about safety at home, she does not feel comfortable with discharge and is being admitted for observation for further management and monitoring. Labs: RSV+ IMAGING: CXR: Impression: 1. No acute pulmonary disease. Chest CTA: Impression: 1. No pulmonary embolism, aortic dissection or pulmonary consolidation. Very minimal pulmonary mosaic attenuation as described above. Cervicle Spine CT: Impression: 1. Interval ACDF C4-C6. No evidence of hardware failure. Plan: Start steroid therapy IV Albuterol nebulizers Q4 and PRN Duonebs Monitor O2 sat and respiratory status Continue Trelegy inh report COSMETIC CHEMIST and MBSS done few weeks ago as the chocking sensation and aspiration resolved with modified diet continue modified diet puree COSMETIC CHEMIST Team eval if needed Can drink meds whole w/ water, has difficulty at times with larger pills. Amblates independently
[2025-04-05] MEDS: guaiFENesin DM 600/30 1 TAB TAB.ER.12H 2 TAB PO (08:59)
[2025-04-05] MEDS: Albuterol Sulfate (0.083%) 2.5 MG/3 ML VIAL.NEB INHALE ×2 (09:05→11:22)
--- NOTE | 2025-04-05 09:26 | PHA.MEDREC ---
Addendum entered by Navya Chen RPh 04/05/25 13:42: Spoke to patient..she said she does NOT take calcitriol nor Breo. She takes trelegy 200 mg 1 puff at bedtime (has the inhaler with her). Med rec updated, Dr. Marie made aware. MED REC REVIEWED BY [facility]. Original Note: Pharmacy Consult ? Medication Reconciliation Pharmacy has completed the medication reconciliation. Spoke with pt and she confirmed her medications. Pt confirmed she takes Acyclovir and Calcitriol as needed for outbreaks, Methlprednisolone changed Saturday by pt Dr; pt now taking 5 tabs in the morning and then 2 hours later will take 5 more tabs. Pt no longer taking Budesonide inhaler; not working for pt, pt was taking Ipratropium [place] after a procedure she had but stopped that a few weeks ago and she was prescribed Oseltamivir 04/02 for 5 days; pt states she was prescribed that by her Dr if she tests positive for the Flu. PT
--- NOTE | 2025-04-05 14:38 | PM.DS ---
DS: Providers Provider Date of admission: 04/04/25 20:31 Date of discharge: 04/05/25 [facility] Attending physician on discharge: Danitza Marie Discharging clinician: Danitza Marie DS: Diagnosis Discharge Diagnosis (1) Tachycardia: Status: Acute (2) Barretts esophagus: Status: Acute (3) Respiratory syncytial virus (RSV): Status: Acute (4) Asthma exacerbation: Status: Acute DS: Summary Hospital Course Hospital Course: HPI:49-year-old female with a complex past medical history including thyroid cancer status post total thyroidectomy (2022), recent anterior cervical spinal fusion (7 weeks ago), asthma, hemochromatosis, hypertension, hyperlipidemia, mitral valve prolapse, fibromuscular dysplasia, and pre-diabetes presents with 10 days of progressive respiratory symptoms. She was diagnosed with RSV infection 5 days ago, and repeat testing today remains positive. Two weeks prior to this admission, she was treated with azithromycin for pneumonia with initial improvement. Over the past week, she has developed worsening dyspnea on exertion, profound fatigue, and markedly decreased energy level. She has been treated with methylprednisolone for one week without symptomatic improvement. She reports significant shortness of breath with minimal exertion and during speaking. She denies chest pain. She underwent a speech and swallow evaluation approximately 2?3 weeks ago and was advised to follow a modified diet. Emergency department evaluation included CTA chest negative for pulmonary embolism or pneumonia, reassuring laboratory studies, and a non-ischemic EKG. She continues to have wheezing in the lower lung wade. During ambulation in the ED, she became tachypneic and tachycardic to the 120s, with oxygen saturation around 93% on room air. Given persistent symptoms, exertional intolerance, and patient?s concern about safety at home, she does not feel comfortable with discharge and is being admitted for observation for further management and monitoring. Hospital course: 49-year-old female with a complex past medical history including thyroid cancer status post total thyroidectomy (2022), recent anterior cervical spinal fusion (7 weeks ago), asthma, hemochromatosis, hypertension, hyperlipidemia, mitral valve prolapse, fibromuscular dysplasia, and pre-diabetes presents with 10 days of progressive respiratory symptoms. Patient was admitted for persistent asthma with acute exacerbation in the setting of acute RSV infection: Started on nebs, steroids, cough medication, CTA-no infiltrate or pulmonary emboli. With the above supportive care , sats are 95% on room air, asymptomatic when with walking. Patient says that she has methylprednisone at home-continue that. She asked for cough medications which are ordered. 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 Plan: methylprednisone at home-continue that. cough medications p.r.n. Above management discussed with the patient detail length she understand and in agreement with the above plan, time spent 50 minute. Time Attestation Total time managing care of this patient today: 50 mintues. Discharge Coordination Time (in mins): 50 minute. Quality: Safe Use of Opioids Does Pt have an Active Cancer Diagnosis on the Problem List?: No Quality: Stroke Does the patient have a stroke diagnosis?: No Physical Exam Exam: Exam: Constitutional : Awake, interactive, not in distress Cardiovascular : RRR, no JVP, no lower extremity edema Respiratory : air entry fair ,no rales or wheezing Gastrointestinal: soft, lax, Normal bowel sounds, Non tender Skin : Warm, Dry Neurological : Alert & oriented x3, No focal deficit Vital Signs: Vital Signs: Last Vital Signs Temp 98.3 F 04/05/25 10:36 Pulse 92 04/05/25 11:25 Resp 20 04/05/25 11:25 BP 130/60 04/05/25 10:36 Pulse Ox 93 04/05/25 10:36 O2 Del Method Room Air 04/05/25 10:36 BMI result Body Mass Index 25.0 DS: Data Data Completed and Pending Labs on day of discharge: Laboratory Results - last 24 hr 04/04/25 04/04/25 04/05/25 13:57 18:32 04:23 WBC 12.6 H RBC 4.33 Hgb 13.4 Hct 38.8 MCV 89.6 MCH 30.9 MCHC 34.5 RDW 12.9 Plt Count 353 MPV 9.3 L Immature Gran % (Auto) 1.1 H Neut % (Auto) 85.5 H Lymph % (Auto) 9.5 L [place] % (Auto) 3.7 Eos % (Auto) 0.0 Baso % (Auto) 0.2 Lymph # (Auto) 1.2 [place] # (Auto) 0.5 Eos # (Auto) 0.0 Baso # (Auto) 0.0 Abs Immat Gran (auto) 0.14 H Absolute Neuts (auto) 10.8 H Absolute Nucleated RBC 0.000 Nucleated RBC % (auto) 0.0 Sodium 139 Potassium 4.2 Chloride 107 Carbon Dioxide 24 Anion Gap 12 BUN 14 Creatinine 0.63 Estim Creat Clear Calc 97.9 Estimated GFR > 60 Random Glucose 148 H Estimat Average Glucose 114 Hemoglobin A1c % 5.6 Calcium 8.8 NT-Pro-B Natriuret Pep 54.2 Influenza Type A (PCR) NEGATIVE Influenza Type B (PCR) NEGATIVE RSV RNA Qual (PCR) POSITIVE A SARS-CoV-2 RNA (RT-PCR) NEGATIVE Imaging CT scan - abdomen: My impression: cta : 1. No pulmonary embolism, aortic dissection or pulmonary consolidation. Very minimal pulmonary mosaic attenuation as described above. C-spine xray: Impression: 1. Interval ACDF C4-C6. No evidence of hardware failure. Discharge Plan Discharge Anticipated Discharge Date/Time: 04/05/25 14:25 Patient Disposition: Home, Self-Care Discharge Diagnosis: Acute asthma exacerbation with RSV URI. Referrals: Brett Sharma, [facility]- [Primary Care Provider, Internal Medicine] - 1 Week Discharge Medications: New Mucus DM 30-600 mg Tablet Extended Release 12 Hr 2 tab PO BID Qty: 20 0RF benzonatate 100 mg Capsule 100 mg PO TID Qty: 20 0RF Continued buspirone 5 mg tablet 5 mg PO BID 30 Days Qty: 60 2RF albuterol sulfate 2.5 mg /3 mL (0.083 %) solution for nebulization 2.5 mg inhalation Q4H PRN (Reason: Shortness Of Breath Or Wheezing) methylprednisolone 4 mg tablet 20 mg PO BID@0900,1100 Airsupra 90-80 mcg/actuation HFA aerosol inhaler 2 inh inhalation Q4H PRN (Reason: Shortness Of Breath Or Wheezing) acetaminophen [Tylenol] 325 mg Tablet 975 mg PO Q6H PRN (Reason: Pain) Metamucil Packet 1 packet PO TID PRN (Reason: Constipation) Rx Instructions: mix into at least 8 oz of water or juice before administering baclofen 10 mg tablet 10 mg PO TID PRN (Reason: muscle spasm) calcium carbonate [Calcium 500] 500 mg calcium (1,250 mg) Tablet,Chewable 500 mg PO DAILY carboxymethylcellulose sodium [Refresh] 1 % Drops, Liquid Gel 1 drp OPHTHALMIC (EYE) BID PRN (Reason: Dry Eye(S)) cyclosporine [Restasis] 0.05 % dropperette 1 drp ophthalmic (eye) BID cholecalciferol (vitamin D3) [Vitamin D3] 50 mcg (2,000 unit) Tablet 50 mcg PO DAILY Trelegy Ellipta 200-62.5-25 mcg Blister With Device 1 inh INHALATION BEDTIME montelukast [Singulair] 10 mg Tablet 10 mg PO DAILY esomeprazole magnesium 40 mg capsule,delayed release(DR/EC) 40 mg PO DAILY@0630 levothyroxine 125 mcg tablet 125 mcg PO DAILY@0600 acyclovir 200 mg capsule 200 mg PO QID PRN (Reason: Outbreak) Discharge Orders: Discharge Order (Routine); Ordered 04/05/25 Ordered By: Danitza Marie Diet: Advance to usual diet Activity on Discharge: As tolerated Stand Alone Forms: Patient Portal Discharge page Print Language: Uzbek Care Plan Goals: Complete methylprednisone as taking at home. Added cough medications Follow up with the PCP and consider outpatient pulmonary follow-up Health Concerns: as above. Plan of Treatment: as above. Assessment: as above.
--- NOTE | 2025-04-05 14:55 | MHC.CM.PN ---
pt is indepedent working and klives with tyrone plasrolando home self care
--- NOTE | 2025-04-05 14:58 | MHC.CM.PN ---
pt dcd home self care
== END 2025-04-05 18:17 | disposition home or self-care (01) ==
LOC: HO.ED 16:45 → HO.EDOVER 20:43 → HO.S3 04-05 09:50
PROVIDERS: Physician Assistant Medical; Admitting Provider Student in an Organized Health Care Education/Training Program; Emergency Provider Emergency Medicine Emergency Medical Services; PCP Nurse Practitioner Family; Visit Provider Internal Medicine
DX: J45.901 Unspecified asthma with (acute) exacerbation (principal); R00.0 Tachycardia, unspecified; K22.70 Barrett's esophagus without dysplasia; B33.8 Other specified viral diseases; Z03.818 Encounter for observation for suspected exposure to other biological agents ruled out; R06.00 Dyspnea, unspecified; K21.9 Gastro-esophageal reflux disease without esophagitis; R05.9 Cough, unspecified; R07.9 Chest pain, unspecified; R06.02 Shortness of breath; I45.10 Unspecified right bundle-branch block; R94.31 Abnormal electrocardiogram [ECG] [EKG]; Z98.1 Arthrodesis status; Z85.850 Personal history of malignant neoplasm of thyroid; Z79.51 Long term (current) use of inhaled steroids; Z79.899 Other long term (current) drug therapy
CPT/HCPCS: 36415; 71046; 71275; 72040; 80048; 80053; 83036; 83735; 83880; 84484; 85025; 85610; 87637; 93005; 94640; 96365; 96372; 96375; 96376; 99221; 99285; J1650; J2919; J3475; Q9967

== ENCOUNTER → 2025-04-04 13:37 | Outpatient (BNV) | payer OTHER, SELFPAY | PROVIDERS: PCP Nurse Practitioner Family; Visit Provider Radiology Diagnostic Radiology | DX: R07.1 Chest pain on breathing (principal); R05.9 Cough, unspecified; R06.02 Shortness of breath; M43.22 Fusion of spine, cervical region | CPT/HCPCS: 71046; 71275; 72040 ==

== ENCOUNTER → 2025-04-04 13:37 | Outpatient (BNV) | payer OTHER, SELFPAY | PROVIDERS: Admitting Provider Student in an Organized Health Care Education/Training Program; Emergency Provider Emergency Medicine Emergency Medical Services; PCP Nurse Practitioner Family; Visit Provider Internal Medicine Cardiovascular Disease | DX: I45.10 Unspecified right bundle-branch block (principal) | CPT/HCPCS: 93010 ==

== ENCOUNTER → 2025-04-04 20:31 | Outpatient (BNV) | payer OTHER, SELFPAY | PROVIDERS: Admitting Provider Student in an Organized Health Care Education/Training Program; Emergency Provider Emergency Medicine Emergency Medical Services; PCP Nurse Practitioner Family; Visit Provider Student in an Organized Health Care Education/Training Program | DX: R00.0 Tachycardia, unspecified (principal); K22.70 Barrett's esophagus without dysplasia; B33.8 Other specified viral diseases; J45.901 Unspecified asthma with (acute) exacerbation | CPT/HCPCS: 99223 ==

== ENCOUNTER 2025-04-08 11:21 | Outpatient (AMB) | payer OTHER, SELFPAY ==
--- OUTSIDE RECORDS SUMMARY | 2024-09-08 03:20 | XMS_ITS ---
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 B arrett esophagus - K22.70 (Primary) Plan: * Procedure Codes: 4 3239 UPPER GI ENDOSCOPY, BIOPSY Billing Information: * Procedure Codes: 68043 UPPER GI ENDOSCOPY, BIOPSY. * The named appointment provid er may or may not be the originator of this progress note, and it is not deemed complete until electronically signed by the appointment provider. Sign off status: Pending * Provider: Ulices Pike MD Date: 0 09/08/2024 Generated for Chitra ordaz/Consuelo/Oscar on: 1 06/09/2024 02:53 PM EST
--- OUTSIDE RECORDS SUMMARY | 2025-04-05 07:55 | XMS_ITS | Encounter Summary ---
Author Organization [facility] Address [address] [place] [address] Care Team Providers Care Accountant Helper Name Role Phone Brett Sharma NP Primary Care Provider + [phone] Isis Young RN Unavailable Tip Campos MD Unavailable [phone] Magnus Perez MD Unavailable [phone] System, Provider Not In Unavailable Unavaila Miki Diana MD Unavailable [phone] Raúl Pike MD Unavailable [phone] Jorge Moreno DO Unavailable [phone] Arturo Bunn MD Unavailable Leatha Mc Unavailable [phone] Encounter Details Date Type Department Care Team (Late st Contact Info) Description 04/05/2025 7:55 AM EST Ancillary Procedure [facility] Radiology [address] [place] [address] Provider, File Room Arrived Social History Tobacco Use Types Packs/Day Years [...] any time in the past 12 m [facility], were you homeless or living in a [place] health care facility (including now)? No 02/05/2025 [facility] Utilities Answer Date Recorded In the past [...] Description 04/26/2025 1:00 PM EST Office Visit [facility] Plastic & Reconstructive Surgery [address] [place] [address] Clyde Martin PA [address] [place] [address] [address] [place] [address] 06/01/2025 10:00 AM EST Office Visit [facility] Neurosurgery [place] [address] [facility] [address] [place] [address] Samara Mendoza PA-C 85 [facility] [address] [place] [address] documented as of this encounter Goals Goal Patient Goal Type Associated Problems Recent Progress Patient-Stated? Author ST LTG 1 Speech Therapy No Zeina Messer CCC-SCRAPER TENDER Note: Pt will tolerate least restrictive diet without s/s aspiration. ST STG 1 Speech Therapy No Zeina Messer CCC-SCRAPER TENDER Note: Pt will complete an instrumental swallowing evaluation within 2 weeks. Additional goals to be set as indicated. documented as of this encounter Procedures Procedure Name Priority Date/Time Associated Diagnosis Comments CR SPINE ARCHIVE FOR REFERENCE ONLY Routine 04/05/2025 7:54 AM EST documented in this encounter Results * CR Spine Archive for Reference only (04/05/2025 7:54 AM EST) Narrative RACHEL - 04/05/2025 7:54 AM EST This study has been auto finalized and does not contain a result. us File Room Provider IMG DIGITIZE FILMS Final Resu lt Performing Organization Address City/State/[facility] Co de Phone Number RACHEL [phone] documented in this encounter Visit Diagnoses Not on filedocumented in this encounter Care Teams Accountant Helper Relationship Specialty Start Date End Date Brett Sharma NP [address] [place] [address] PCP - General Family Medicine 03/03/24 Isis Young RN [address] [place] [address] Nurse Navigator Surgery, Neurosurgery 01/25/25 Tip Campos MD [address] [address] Surgery, Neurosurgery 02/01/25 Magnus Perez MD [address] [place] [phone] Cardiovascular Disease 02/01/25 System, Provider Not In [address] [place] [phone] Hematology Oncology 02/01/25 Miki Blackwood MD [address] [place] [address] Endocrinology 02/01/25 Raúl Pike MD [address] [place] [address] Gastroenterology 02/01/25 Jorge Moreno DO [address] [place] [address] Immunology 02/01/25 Arturo Bunn MD [address] [place] [address] Otolaryngology 02/01/25 Leatha Mc PA [address] [address] Physician Air Export Logistics Manager Surgery, Neurosurgery 02/05/25 documented as of this encounter
--- OUTSIDE RECORDS SUMMARY | 2025-04-05 07:55 | XMS_ITS | Encounter Summary ---
Author Organization [facility] Address [address] [place] [address] Care Team Providers Care Computer Network Engineer Name Role Phone Brett Sharma NP Primary Care Provider + [phone] Isis Young RN Unavailable [phone] Tip Campos MD Unavailable [phone] Magnus Perez MD Unavailable [phone] System, Provider Not In Unavailable Unavaila Miki Diana MD Unavailable [phone] Raúl Pike MD Unavailable [phone] Jorge Moreno DO Unavailable [phone] Arturo Bunn MD Unavailable Leatha Mc Unavailable [phone] Encounter Details Date Type Department Care Team (Late st Contact Info) Description 04/05/2025 7:55 AM EST Ancillary Procedure [facility] Radiology [address] [place] [address] Provider, File Room Arrived Social History Tobacco [...] any time in the past 12 m [facility], were you homeless or living in a long-term (including now)? No 02/05/2025 [facility] Utilities Answer Date Recorded In [...] Description 04/26/2025 1:00 PM EST Office Visit [facility] Plastic & Reconstructive Surgery [address] [place] [address] Clyde Martin PA [address] [place] [address] [address] [place] [address] 06/01/2025 10:00 AM EST Office Visit [facility] Neurosurgery [place] 85 [facility] [address] [place] [address] Samara Mendoza PA-C 85 [facility] [address] [place] [address] documented as of this encounter Goals Goal Patient Goal Type Associated Problems Recent Progress Patient-Stated? Author ST LTG 1 Speech Therapy No Zeina Messer CCC-VENDOR MANAGEMENT ASSOCIATE Note: Pt will tolerate least restrictive diet without s/s aspiration. ST STG 1 Speech Therapy No Zeina Messer CCC-VENDOR MANAGEMENT ASSOCIATE Note: Pt will complete an instrumental swallowing evaluation within 2 weeks. Additional goals to be set as indicated. documented as of this encounter Procedures Procedure Name Priority Date/Time Associated Diagnosis Comments CT CHEST ARCHIVE FOR REFERENCE ONLY Routine 04/05/2025 7:54 AM EST documented in this encounter Results * CT Chest Archive for Reference Only (04/05/2025 7:54 AM EST) Narrative RACHEL - 04/05/2025 7:54 AM EST This study has been auto finalized and does not contain a result. us File Room Provider IMG DIGITIZE FILMS Final Resu lt Performing Organization Address City/State/[facility] Co de Phone Number RACHEL [phone] documented in this encounter Visit Diagnoses Not on filedocumented in this encounter Care Teams Computer Network Engineer Relationship Specialty Start Date End Date Brett Sharma NP [address] [place] [address] PCP - General Family Medicine 03/03/24 Isis Young RN [address] [place] [address] Nurse Navigator Surgery, Neurosurgery 01/25/25 Tip Campos MD [address] [address] Surgery, Neurosurgery 02/01/25 Magnus Perez MD [address] [place] [phone] Cardiovascular Disease 02/01/25 System, Provider Not In [address] [place] [phone] Hematology Oncology 02/01/25 Miki Blackwood MD [address] [place] [address] Endocrinology 02/01/25 Raúl Pike MD [address] [place] [address] Gastroenterology 02/01/25 Jorge Moreno DO [address] [place] [address] Immunology 02/01/25 Arturo Bunn MD [address] [place] [address] Otolaryngology 02/01/25 Leatha Mc PA [address] [address] Physician Pattern And Chain Maker Surgery, Neurosurgery 02/05/25 documented as of this encounter
--- OUTSIDE RECORDS SUMMARY | 2025-04-05 08:00 | XMS_ITS | Encounter Summary ---
Author Organization [facility] Address [address] [place] [address] Care Team Providers Care Internet Programmer Name Role Phone Brett Sharma NP Primary Care Provider + [phone] Isis Young RN Unavailable [phone] Tip Campos MD Unavailable [phone] Magnus Perez MD Unavailable [phone] System, Provider Not In Unavailable Unavaila Miki Diana MD Unavailable [phone] Raúl Pike MD Unavailable [phone] Jorge Moreno DO Unavailable [phone] Arturo Bunn MD Unavailable Leatha Mc Unavailable [phone] Encounter Details Date Type Department Care Team (Late st Contact Info) Description 04/05/2025 8:00 AM EST Ancillary Procedure [facility] Radiology [address] [place] [address] Provider, File Room Arrived Social History Tobacco [...] time in the past [address] [facility], were you homeless or living in a jail (including now)? No 02/05/2025 [facility] Utilities Answer Date Recorded In the [...] Description 04/26/2025 1:00 PM EST Office Visit [facility] Plastic & Reconstructive Surgery [address] [place] [address] Clyde Martin PA [address] [place] [address] [address] [place] [address] 06/01/2025 10:00 AM EST Office Visit [facility] Neurosurgery [place] 85 [facility] [address] [place] [address] Samara Mendoza PA-C 85 [facility] [address] [place] [address] documented as of this encounter Goals Goal Patient Goal Type Associated Problems Recent Progress Patient-Stated? Author ST LTG 1 Speech Therapy No Zeina Messer CCC-LEGISLATIVE ASSISTANT Note: Pt will tolerate least restrictive diet without s/s aspiration. ST STG 1 Speech Therapy No Zeina Messer CCC-LEGISLATIVE ASSISTANT Note: Pt will complete an instrumental swallowing [...] FILMS Final Resu lt Performing Organization Address City/State/[facility] Co de Phone Number RACHEL [phone] documented in this encounter Visit Diagnoses Not on filedocumented in this encounter Care Teams Internet Programmer Relationship Specialty Start Date End Date Brett Sharma NP [address] [place] [address] PCP - General Family Medicine 03/03/24 Isis Young RN [address] [place] [address] Nurse Navigator Surgery, Neurosurgery 01/25/25 Tip Campos MD [address] [address] Surgery, Neurosurgery 02/01/25 Magnus Perez MD [address] [place] [phone] Cardiovascular Disease 02/01/25 System, Provider Not In [address] [place] [phone] Hematology Oncology 02/01/25 Miki Blackwood MD [address] [place] [address] Endocrinology 02/01/25 Raúl Pike MD [address] [place] [address] Gastroenterology 02/01/25 Jorge Moreno DO [address] [place] [address] Immunology 02/01/25 Arturo Bunn MD [address] [place] [address] Otolaryngology 02/01/25 Leatha Mc PA [address] [address] Physician Director Statistical Programming Surgery, Neurosurgery 02/05/25 documented as of this encounter
--- NOTE | 2025-04-08 11:26 | A.OFFPC_ITS ---
Vital Signs 04/08/25 11:33 Height 5 ft 3 in Weight 138 lb BMI 24.4 BP 102/68 Blood Pressure Location Lt brachial Position Sitting Respiration 16 Pulse 104 H Pulse Source Pulse Oximeter Pulse Oximetry (%) 97 Oxygen Delivery Method Room Air Intake Visit Reasons: 3m follow up Watershed Program Manager Required: No Accompanied by: Self / Same As Patient Allergies hydrocodone (HYDROCODONE) Allergy (Intermediate, Verified 04/08/25 11:35) HIVES amoxicillin (Augmentin) Allergy (Unknown, Verified 04/08/25 11:35) unknown chlorhexidine Allergy (Unknown, Verified 04/08/25 11:35) unknown clavulanic acid (Augmentin) Allergy (Unknown, Verified 04/08/25 11:35) unknown doxycycline Allergy (Unknown, Verified 04/08/25 11:35) anaphylaxis ibuprofen (IBUPROFEN) Allergy (Unknown, Verified 04/08/25 11:35) HIVES meperidine (Demerol) Allergy (Unknown, Verified 04/08/25 11:35) unknown morphine (MORPHINE) Allergy (Unknown, Verified 04/08/25 11:35) HIVES acetaminophen Allergy (Verified 04/08/25 11:35) Anaphylaxis cephalexin (From Keflex) Allergy (Verified 04/08/25 11:35) Anaphylaxis cinnamon Allergy (Verified 04/08/25 11:35) Anaphylaxis latex Allergy (Verified 04/08/25 11:35) Unknown lidocaine (From LidoPatch) Allergy (Verified 04/08/25 11:35) Rash menthol (From LidoPatch) Allergy (Verified 04/08/25 11:35) Rash mupirocin Allergy (Verified 04/08/25 11:35) Rash prednisone Allergy (Verified 04/08/25 11:35) neuropathy strawberry Allergy (Verified 04/08/25 11:35) Anaphylaxis oxycodone (From PERCOCET) Adverse Reaction (Unknown, Verified 04/08/25 11:35) HIVES Medication List - Last Reconciled 04/08/25 by REX Briones-HEIDI acetaminophen (Tylenol) 975 mg PO Q6H PRN acyclovir 200 mg PO QID PRN albuterol sulfate 2.5 mg inhalation Q4H PRN albuterol-budesonide 90-80 mcg/actuation (Airsupra) 2 inhalations inhalation Q4H PRN baclofen 10 mg PO TID PRN benzonatate 100 mg PO TID buspirone 5 mg PO BID 30 days calcium carbonate (Calcium 500) 500 mg PO DAILY carboxymethylcellulose sodium 1% 1 drp ophthalmic (eye) BID PRN cholecalciferol (vitamin D3) (Vitamin D3) 50 mcg PO DAILY cyclosporine 0.05% (Restasis) 1 drp ophthalmic (eye) BID dextromethorphan-guaifenesin 30-600 mg (Mucus DM) 2 tabs PO BID esomeprazole magnesium 40 mg PO DAILY@0630 lhmzuwjpboh-ftgcvivzb-eoojztnl 200-62.5-25 mcg (Trelegy Ellipta) 1 inh inhalat ion BEDTIME ipratropium-albuterol 0.5 mg-3 mg(2.5 mg base)/3 mL 3 mL inhalation Q6-8H PRN levothyroxine 125 mcg PO DAILY@0600 methylprednisolone 20 mg PO BID@0900,1100 montelukast (Singulair) 10 mg PO DAILY psyllium 1 packet PO TID PRN Tobacco use date assessed: 04/08/25 Dental Screening Dental Screen Date: 04/08/25 Did you have a dental visit in the last 12 months?: Yes Did you have a dental problem in the last 6 months where you did not have access to dental care?: No Was dental information given to patient?: Patient has dentist HPI 3m follow up HPI Details Chief Complaint The patient is here for a follow-up visit after a recent hospitalization for worsening dyspnea and fatigue. History of Present Illness The patient is a 49 year old female presenting for a hospital discharge follow up. She was recently hospitalized on 04/04/2025 for worsening dyspnea on exertion and profound fatigue and was discharged the next day. Her symptoms began five days prior to admission, at which time she was diagnosed with RSV and was treated with a Z-Arnulfo with some improvement. During her hospitalization, her oxygen saturation was 93% on room air. A CTA scan was negative for pulmonary embolism or pneumonia, labs were reassuring, and her EKG was non-ischemic. She had some wheezing on her lung exam and was treated with prednisone, which she is currently tapering, and is now doing quite well. The patient's past medical history is notable for thyroid cancer treated with thyroidectomy, an anterior cervical spinal fusion performed about 7 weeks prior, asthma, hemochromatosis, hypertension, hyperlipidemia, mitral valve prolapse, fibromuscular dysplasia, and prediabetes. She also has a history of aspiration, which has required a modified dysphagia diet. Social History - Diet: The patient follows a modified d iet for dysphagia related to a prior aspiration event. Health Maintenance - The patient follows up with her pulmon luzma team and siding installer. Review of Systems - General: Denies fevers. - Cardiovascular: Denies chest pain. - Respiratory: Denies current shortness of breath or wheezing. Physical Exam General: Cooperative, healthy appearing, comfortable, no acute distress and well developed, talking in complete sentences with mask on. Orientation: Patient oriented x3 Limitations: No limitations Head: Normal to inspection Ears: Hearing grossly normal bilaterally Nose: Normal external nose present Face and sinus: Normal facial exam Eyes: Appearance normal, both eyes and all related structures Neck: Normal visual inspection and Yes full ROM Respiratory: Normal respiratory effort and able to speak in complete sentences. Clear to auscultation bilaterally, no wheezing noted Cardiovascular: Regular rate and rhythm. Normal S1 and S2 GI: Normal to inspection. Soft to palpation and nontender Skin: No rashes or lesions noted Neuro: Patient oriented x3 Extremities: Normal to inspection Results - Labs: Reassuring during recent hospita lization. - Imaging: CTA was negative for pulmonar y embolism or pneumonia. - Diagnostics: EKG was non-ischemic. Plan 1. Rsv Infection And Asthma Exacerbation The patient is recovering well following her recent hospitalization. She will continue to taper off her methylprednisone until it is completed and was also given cough medicine. 2. Dysphagia Given her history of aspiration, she will continue her modified diet for dysphagia. 3. Chronic Condition Management The patient will follow up with her pulmonary and allergy specialists in approximately 3 weeks for ongoing management. She has been advised to contact the office with any further questions or concerns. Discussion Notes I confirmed that the patient is recovering well from her recent hospitalization for an RSV infection. We discussed the plan to continue her methylprednisone taper as prescribed and the importance of adhering to her modified dysphagia diet. I recommended she maintain her follow-up appointment with her pulmonary and allergy teams in approximately three weeks. I advised her to contact me with any further questions or concerns. Patient Instructions - Please continue to take your methylpre dnisone medication until it is finished. - You were also given a cough medicine t o use as needed. - It is important to continue with your special diet for swallowing to prevent issues like aspiration. - You are recovering well, your breathin g is good, and your vitals are stable. - Please make sure to follow up with you r lung doctor (teacher drama) and your siding installer in about 3 weeks. - Contact us if you have any questions o r concerns. [facility] Medical History Degenerative lumbar disc Neck pain with history of cervical spinal surgery Degenerative cervical disc Foraminal stenosis of cervical region Fibromuscular dysplasia of carotid artery Tinnitus Hearing loss Hernia GERD (gastroesophageal reflux disease) Thyroid cancer Elevated liver function tests Barretts esophagus Enlarged thyroid MVP (mitral valve prolapse) Fibroadenoma of left breast Renal cyst Hepatic hemangioma Hepatic adenoma Asthma Hemochromatosis Nodular thyroid disease Surgical History Hx of prior ablation treatment Hx of partial thyroidectomy History of esophagogastroduodenoscopy (EGD) H/O colonoscopy H/O thyroidectomy History of tonsillectomy and adenoidectomy History of section Family History Father HTN (hypertension) Type 2 diabetes mellitus High cholesterol Ulcerative colitis Mother Pulmonary embolism Multiple myeloma Maternal Grandmother Diabetes mellitus CVD (cardiovascular disease) Maternal Grandfather CVD (cardiovascular disease) Paternal Grandfather Substance use disorder Paternal Grandmother Uterine cancer Maternal Uncle CVD (cardiovascular disease) Substance use disorder Sister No problems noted. Son No problems noted. Daughter No problems noted. Social History Household Members: Spouse and Children Housing: House Alcohol intake: current Alcohol intake frequency: holidays/special occasions only Patient Tobacco Use Status: Never used Tobacco e-Cigarette/Vaping Use: Never Used Second Hand Smoke Exposure: No service: No Current occupational status: employed Current occupation: [employer] Current occupational exposures/hazards: No Cognitive needs: No Hearing needs: No Vision needs: No Questionnaire PHQ-9 Over the last 2 weeks, how often have you been bothered by any of the following problems? 1. Little interest or pleasure in doing things: not at all 2. Feeling down, depressed, or hopeless: not at all 3. Trouble falling or staying asleep, or sleeping too much: not at all 4. Feeling tired or having little energy: several days 5. Poor appetite or overeating: not at all 6. Feeling bad about yourself - or that you are a failure or have let yourself or your family down: not at all 7. Trouble concentrating on things, such as reading the newspaper or watching television: not at all 8. Moving or speaking so slowly that other people could have noticed. Or the opposite - being so fidgety or restless that you have been moving around a lot more than usual: not at all 9. Thoughts that you would be better off or of hurting yourself in some way: not at all Total score: 1 Depression Screening Interpretation: Negative Depression Screening Done: Yes 12559 - PHQ-9 Billing: Yes Source: Developed by Drs. Rosales Rose, Thelma Willams, King Larson and colleagues, with an educational marjorie from [employer]. Thrive Questionnaire Date Thrive assessed: 04/05/25 I am a: Patient What is your living situation today?: I have a steady place to live Within the past 12 months, did the food you bought not last and you didn't have the money to get more?: Never true Within the past 12 months, did you worry whether your food would run out before you got money to buy more?: Never true Do you have trouble paying for medicines?: No Do you have trouble getting transportation to medical appointments?: No Do you have trouble paying your heating and electricity bill?: No Do you have trouble taking care of your child, family member or friend?: No Do you have trouble with day-to-day activities such as bathing, preparing meals, shopping, managing finances, etc.?: No Are you currently unemployed and looking for a job?: No Are you interested in more education?: No Please select the resources that you would like help with: None Currently or been in a relationship where the following occur: No concerns reported THRIVE Score: 0 ABI-7 AMB Questionnaire ABI-7 Date ABI - 7 assessed: 04/08/25 Feeling nervous, anxious, or on edge: 0 = Not at all Not being able to stop or control worryin = Not at all Worrying too much about different things: 0 = Not at all Trouble relaxin = Not at all Being so restless that it is hard to sit still: 0 = Not at all Becoming easily annoyed or irritable: 0 = Not at all Feeling afraid as if something awful might happen: 0 = Not at all Total ABI-7 score (0-4 normal; 5-9 mild; 10-14 moderate; 15-21 severe): 0 Source: Developed by Drs. Rosales Rose, Thelma Willams, King aLrson and colleagues, with an educational marjorie from [employer]. ABI-7 Assessment Billing ABI-7 Assessment Tool: ABI-7 Assessment 11460 Physical exam (Primary Care) Vital Signs: Last Vital Signs Pulse 104 H 04/08/25 11:33 Resp 16 04/08/25 11:33 BP 102/68 04/08/25 11:33 Pulse Ox 97 04/08/25 11:33 Oxygen Delivery Method Room Air 04/08/25 11:33 BMI result Body Mass Index 24.4 Tobacco/Smoking Status: Tobacco use Status Tobacco use date assessed 04/08/25 04/08/25 11:36 Patient Tobacco Use Status Never used Tobacco 04/08/25 11:27 e-Cigarette/Vaping Use Never Used 04/08/25 11:27 PHQ-9: PHQ-9 Score PHQ-9: Total score 1 04/08/25 11:36 Depression Screening Interpretation: Negative Thrive Assessment: Date of Thrive Assessment Date Thrive assessed 04/05/25 04/08/25 11:27 Currently or been in a relationship where the following occur: No concerns reported Coding Level of Care Code TCM Mod MDM <= 7 Days Diagnoses Asthma J45.909 RSV (acute bronchiolitis due to respiratory syncytial virus) J21.0 Dysphagia R13.10 Additional Codes ABI-7 Assessment Billing - ABI-7 Assessment Tool: ABI-7 Assessment 44444 ([id number]) PHQ-9 - 79198 - PHQ-9 Billing: Yes ([id number]) Assessment & Plan Assessment & Plan (1) Asthma: Code(s): J45.909 - Unspecified asthma, uncomplicated Category: Medical (2) RSV (acute bronchiolitis due to respiratory syncytial virus): Code(s): J21.0 - Acute bronchiolitis due to respiratory syncytial virus Category: Medical (3) Dysphagia: Code(s): R13.10 - Dysphagia, unspecified Category: Medical Plan . Medications: New ipratropium-albuterol 0.5 mg-3 mg(2.5 mg base)/3 mL 3 mL inhalation Q6-8H PRN 180 mL 0RF wheezing Changed From buspirone 5 mg PO BID 30 days 60 tabs 2RF To buspirone 7.5 mg PO BID 60 tabs 2RF 30 days
[2025-04-08 11:33] VITALS: BP 102/68; PULSE 104; RESP 16; O2SAT 97; BMI 24.4
--- OUTSIDE RECORDS SUMMARY | 2025-04-08 14:54 | XMS_ITS | Encounter Summary ---
Author Organization Formerly [facility] Address [address] [place] [address] Care Team Providers Care Continuous Linter Drier Operator Name Role Phone Brett Sharma NP Primary Care Provider + [phone] Isis Young RN Unavailable [phone] Tip Campos MD Unavailable [phone] Magnus Perez MD Unavailable [phone] System, Provider Not In Unavailable Unavaila Miki Diana MD Unavailable [phone] Raúl Pike MD Unavailable Jorge Moreno DO Unavailable Arturo Bunn MD Unavailable Leatha Mc Unavailable [phone] Encounter Details Date Type Department Care Team (Late st Contact Info) Description 03/25/2025 Scanned Document [facility] Neurosurgery [place] 85 [facility] [address] [place] [phone] Samara Mendoza PA-C 85 [facility] Joshua [address] [place] [address] Social History Tobacco Use Types Packs/Day [...] any time in the past 12 m [facility], were you homeless or living in a alf (including now)? No 02/05/2025 [facility] Utilities Answer Date Recorded In the [...] [facility] Plastic & Reconstructive Surgery [address] [place] [address] [place] [address] Clyde Martin PA 399 [facility] 210 [place] [address] 06/01/2025 10:00 AM EST Office Visit [facility] Neurosurgery [place] [address] [phone] Samara Mendoza PA-C [address] [address] documented as of this encounter Goals Goal Patient Goal Type Associated Problems Recent Progress Patient-Stated? Author ST LTG 1 Speech Therapy No Zeina Messer CCC-OPEN WINDER Note: Pt will tolerate least restrictive diet without s/s aspiration. ST STG 1 Speech Therapy No Zeina Messer CCC-OPEN WINDER Note: Pt will complete an instrumental swallowing evaluation within 2 weeks. Additional goals to be set as indicated. documented as of this encounter Visit Diagnoses Not on filedocumented in this encounter Care Teams Continuous Linter Drier Operator Relationship Specialty Start Date End Date Brett Sharma NP [address] [place] [address] PCP - General Family Medicine 03/03/24 Isis Young RN 80 [place] [address] Nurse Navigator Surgery, Neurosurgery 01/25/25 Tip Campos MD [address] [place] [address] Surgery, Neurosurgery 02/01/25 Magnus Perez MD [address] [place] [phone] Cardiovascular Disease 02/01/25 System, Provider Not In [address] [place] [phone] Hematology Oncology 02/01/25 Miki Blackwood MD 15 [place] [address] Endocrinology 02/01/25 Raúl Pike MD [address] [place] [address] Gastroenterology 02/01/25 Jorge Moreno DO 269 [facility] 201 [place] [address] Immunology 02/01/25 Arturo Bunn MD [address] [place] [address] Otolaryngology 02/01/25 Leatha Mc PA [address] [place] [address] [place] [address] Physician Deputy Felony Clerk Surgery, Neurosurgery 02/05/25 documented as of this encounter
--- OUTSIDE RECORDS SUMMARY | 2025-04-08 14:54 | XMS_ITS | Encounter Summary ---
Author Organization [facility] Address [address] [place] [address] Care Team Providers Care Rolled Glass Crosscutter Name Role Phone Brett Sharma NP Primary Care Provider + [phone] Isis Young RN Unavailable Tip Campos MD Unavailable [phone] Magnus Perez MD Unavailable [phone] System, Provider Not In Unavailable Unavaila Miki Diana MD Unavailable [phone] Raúl Pike MD Unavailable Jorge Moreno DO Unavailable [phone] Arturo Bunn MD Unavailable Leatha Mc Unavailable [phone] Encounter Details Date Type Department Care Team (Late st Contact Info) Description 03/04/[address] [facility] Plastic & Reconstructive Surgery [address] [place] [address] Michael Long MD [address] [place] [address] 210 [place] [address] Social History Tobacco Use Types Packs/Day Years [...] Description 04/26/2025 1:00 PM EST Office Visit [facility] Plastic & Reconstructive Surgery [place] [address] [phone] Clyde Martin PA [address] [place] [address] 06/01/2025 10:00 AM EST Office Visit [facility] Neurosurgery [place] [address] [phone] Samara Mendoza PA-C [address] [phone] documented as of this encounter Visit Diagnoses Not on filedocumented in this encounter Care Teams Rolled Glass Crosscutter Relationship Specialty Start Date End Date Brett Sharma NP [address] [place] [address] PCP - General Family Medicine 03/03/24 Isis Young RN 80 [place] [address] Nurse Navigator Surgery, Neurosurgery 01/25/25 Tip Campos MD [address] [place] [address] [place] [address] Surgery, Neurosurgery 02/01/25 Magnus Perez MD [address] [place] [phone] Cardiovascular Disease 02/01/25 System, Provider Not In [address] [place] [phone] Hematology Oncology 02/01/25 Miki Blackwood MD [address] [place] [address] Endocrinology 02/01/25 Raúl Pike MD [address] [place] [address] Gastroenterology 02/01/25 Jorge Moreno DO 269 [facility] 201 [place] [address] Immunology 02/01/25 Arturo Bunn MD [address] [place] [address] Otolaryngology 02/01/25 Leatha Mc PA 85 [facility] [address] [place] [address] Physician Art Consultant Surgery, Neurosurgery 02/05/25 documented as of this encounter
--- OUTSIDE RECORDS SUMMARY | 2025-04-08 14:54 | XMS_ITS | Encounter Summary ---
Author Organization [facility] Address [address] [place] [address] Care Team Providers Care Rn Wound Name Role Phone Brett Sharma NP Primary Care Provider + [phone] Isis Young RN Unavailable Tip Campos MD Unavailable [phone] Magnus Perez MD Unavailable [phone] System, Provider Not In Unavailable Unavaila Miki Diana MD Unavailable [phone] Raúl Pike MD Unavailable Jorge Moreno DO Unavailable [phone] Arturo Bunn MD Unavailable Leatha Mc Unavailable [phone] Encounter Details Date Type Department Care Team (Late st Contact Info) Description 02/24/2025 Scanned Document [facility] Neurosurgery [address] [phone] Tip Campos MD [address] [place] [address] Social History Tobacco Use Types Packs/Day [...] time in the past 12 m [facility], were you homeless or living in a jail (including now)? No 02/05/2025 [facility] Utilities Answer Date Recorded In [...] Description 04/26/2025 1:00 PM EST Office Visit [facility] Plastic & Reconstructive Surgery [address] [place] [address] Clyde Martin PA 399 [facility] [address] [place] [address] 06/01/2025 10:00 AM EST Office Visit [facility] Neurosurgery [place] [address] [phone] Samara Mendoza PA-C [address] [address] documented as of this encounter Goals Goal Patient Goal Type Associated Problems Recent Progress Patient-Stated? Author ST LTG 1 Speech Therapy No Zeina Messer CCC-STRUCTURAL ENGINEERING PROJECT MANAGER Note: Pt will tolerate least restrictive diet without s/s aspiration. ST STG 1 Speech Therapy No Zeina Messer CCC-STRUCTURAL ENGINEERING PROJECT MANAGER Note: Pt will complete an instrumental swallowing evaluation within 2 weeks. Additional goals to be set as indicated. documented as of this encounter Visit Diagnoses Not on filedocumented in this encounter Care Teams Rn Wound Relationship Specialty Start Date End Date Brett Sharma NP 262 [place] [address] PCP - General Family Medicine 03/03/24 Isis Young RN 80 [place] [address] Nurse Navigator Surgery, Neurosurgery 01/25/25 Tip Campos MD [address] [place] [address] Surgery, Neurosurgery 02/01/25 Magnus Perez MD [address] [place] [phone] Cardiovascular Disease 02/01/25 System, Provider Not In [address] [place] [phone] Hematology Oncology 02/01/25 Miki Blackwood MD 15 [place] [address] Endocrinology 02/01/25 Raúl Pike MD [address] [place] [address] Gastroenterology 02/01/25 Jorge Moreno DO 269 [facility] 201 [place] [address] Immunology 02/01/25 Arturo Bunn MD [address] [place] [address] Otolaryngology 02/01/25 Leatha Mc PA [address] [place] [address] [place] [address] Physician Electrical Wirer Surgery, Neurosurgery 02/05/25 documented as of this encounter
--- OUTSIDE RECORDS SUMMARY | 2025-04-08 14:54 | XMS_ITS | Encounter Summary ---
Author Organization [facility] Address [address] [place] [address] Care Team Providers Care Mathematical Engineer Name Role Phone Brett Sharma NP Primary Care Provider + [phone] Isis Young RN Unavailable Tip Campos MD Unavailable Magnus Perez MD Unavailable [phone] System, Provider Not In Unavailable Unavaila Miki Diana MD Unavailable [phone] Raúl Pike MD Unavailable [phone] Jorge Moreno DO Unavailable [phone] Arturo Bunn MD Unavailable Leatha Mc Unavailable [phone] Encounter Details Date Type Department Care Team (Late st Contact Info) Description 03/19/[address] [facility] Neurosurgery [address] [phone] Tip Campos MD [address] [place] [address] Social History Tobacco Use Types Packs/Day [...] in a alf (including now)? No 02/05/2025 [facility] Utilities Answer Date Recorded In the [...] 04/26/2025 1:00 PM EST Office Visit [facility] Plastic & Reconstructive Surgery [address] [place] [address] Clyde Martin PA 399 [facility] 210 [place] [address] 06/01/2025 10:00 AM EST Office Visit [facility] Neurosurgery [place] [address] [phone] Samara Mendoza PA-C [address] [address] documented as of this encounter Goals Goal Patient Goal Type Associated Problems Recent Progress Patient-Stated? Author ST LTG 1 Speech Therapy No Zeina Messer CCC-MANGANESE BREAKER Note: Pt will tolerate least restrictive diet without s/s aspiration. ST STG 1 Speech Therapy No Zeina Messer CCC-MANGANESE BREAKER Note: Pt will complete an instrumental swallowing evaluation within 2 weeks. Additional goals to be set as indicated. documented as of this encounter Visit Diagnoses Not on filedocumented in this encounter Care Teams Mathematical Engineer Relationship Specialty Start Date End Date Brett Sharma NP [address] [place] [address] PCP - General Family Medicine 03/03/24 Isis Young RN [address] [place] [address] Nurse Navigator Surgery, Neurosurgery 01/25/25 iTp Campos MD [address] [place] [address] Surgery, Neurosurgery 02/01/25 Magnus Perez MD [address] [place] [phone] Cardiovascular Disease 02/01/25 System, Provider Not In [address] [place] [phone] Hematology Oncology 02/01/25 Miki Blackwood MD [address] [place] [address] Endocrinology 02/01/25 Raúl Pike MD [address] [place] [address] Gastroenterology 02/01/25 Jorge Moreno DO 269 [facility] 201 [place] [address] Immunology 02/01/25 Arturo Bunn MD [address] [place] [address] Otolaryngology 02/01/25 Leatha Mc PA [address] [place] [address] [place] [address] Physician Surgical First Assistant Surgery, Neurosurgery 02/05/25 documented as of this encounter
--- OUTSIDE RECORDS SUMMARY | 2025-04-08 14:54 | XMS_ITS | Encounter Summary ---
Author Organization [facility] Address [address] [place] [address] Care Team Providers Care Security Ambassador Name Role Phone Brett Sharma NP Primary Care Provider + [phone] Isis Young RN Unavailable Tip Campos MD Unavailable [phone] Magnus Perez MD Unavailable [phone] System, Provider Not In Unavailable Unavaila Miki Diana MD Unavailable [phone] Raúl Pike MD Unavailable Jorge Moreno DO Unavailable [phone] Arturo Bunn MD Unavailable Leatha Mc Unavailable [phone] Encounter Details Date Type Department Care Team (Late st Contact Info) Description 02/09/2025 Scanned Document [facility] Neurosurgery [address] [phone] Neurosurgery, Scan Social History Tobacco Use Types [...] were you homeless or living in a retirement (including now)? No 02/05/2025 [facility] Utilities Answer Date Recorded In [...] 1:00 PM EST Office Visit [facility] Plastic & Reconstructive Surgery [place] 399 [facility] 210 [place] [address] Clyde Martin PA [address] [place] [address] [address] [place] [address] 06/01/2025 10:00 AM EST Office Visit [facility] Neurosurgery [place] 85 [facility] [address] [place] [phone] Samara Mendoza PA-C [address] [address] documented as of this encounter Visit Diagnoses Not on filedocumented in this encounter Care Teams Security Ambassador Relationship Specialty Start Date End Date Brett Sharma NP [address] [place] [address] PCP - General Family Medicine 03/03/24 Isis Young RN [address] [place] [address] Nurse Navigator Surgery, Neurosurgery 01/25/25 Tip Campos MD [address] [place] [address] Surgery, Neurosurgery 02/01/25 Magnus Perez MD [address] [place] [phone] Cardiovascular Disease 02/01/25 System, Provider Not In [address] [place] [phone] Hematology Oncology 02/01/25 Miki Blackwood MD [address] [place] [address] Endocrinology 02/01/25 Raúl Pike MD [address] [place] [address] Dr [address] [place] [address] Gastroenterology 02/01/25 Jorge Moreno DO 269 [facility] 201 [place] [address] Immunology 02/01/25 Arturo Bunn MD [address] [place] [address] Otolaryngology 02/01/25 Leatha Mc PA 85 [facility] [address] [place] [address] Physician Spacer Type Bar And Segment Surgery, Neurosurgery 02/05/25 documented as of this encounter
--- OUTSIDE RECORDS SUMMARY | 2025-04-08 14:54 | XMS_ITS | Clinical Summary ---
Author Organization [facility] Address [address] [place] [address] Care Team Providers Care Coffee Grinder Name Role Phone Rosalind Vizcarra NP Primary Care Provider [phone] Isis Young RN Unavailable Makayla Campos MD Unavailable [phone] Magnus Perez MD Unavailable [phone] System, Provider Not In Unavailable Unavaila Miki Diana MD Unavailable Raúl Pike MD Unavailable Jorge Moreno DO Unavailable [phone] Arturo Bunn MD Unavailable Leatha Mc Unavailable [phone] Allergies Active Allergy Reactions Criticality Noted [...] with cardiology ( Dr. Manuel Perez) in [place]. Per his recent notes (02/01/25)-Discussed pursuing a [...] Encounters Date Type Department Care Team Description 04/05/2025 8:00 AM EST Ancillary Procedure [facility] [address] [place] [phone] Provider, File Room Arrived 04/05/2025 7:55 AM EST Ancillary Procedure [facility] [address] [place] [phone] Provider, File Room Arrived 04/05/2025 7:55 AM EST Ancillary Procedure [facility] [address] [place] [phone] Provider, File Room Arrived 03/31/2025 10:00 AM EST Office Visit [facility] [place] [address] [facility] [address] [place] [address] Samara Mendoza PA-C S/P cervical spinal fusion (Primary Dx); Cervical disc disorder with radiculopathy; Lumbar radiculopathy; Degeneration of intervertebral disc of lumbar region with discogenic back pain and lower extremity pain; Fibromuscular dysplasia 03/25/2025 Scanned Document [facility] [address] [place] [phone] Samara Mendoza PA-C 03/19/2025 Scanned Document [facility] [address] [place] [phone] Makayla Campos MD 03/19/2025 Scanned Document [facility] [address] [place] [address] Makayla Campos MD 03/09/2025 Scanned Document [facility] [address] [place] [address] Leatha Mc PA 03/05/2025 9:00 AM EST Office Visit [facility] [address] [address] Alonzo Root MD Dysphonia (Primary Dx); Laryngeal spasm; Muscle tension dysphonia; History of fusion of cervical spine; Chronic rhinitis; Unilateral partial vocal fold paralysis 02/26/2025 7:38 AM EST - 02/26/2025 11:59 PM EST Hospital Encounter [facility] [address] [place] [address] Samara Mendoza PA-C Dysphagia, unspecified type; S/P cervical spinal fusion Discharge Disposition: Home or Self Care 02/24/2025 1:00 PM EST Evaluation [facility] [address] [phone] Leatha Mc PA Falk, Janice, [facility] Dysphagia, pharyngeal phase (Primary Dx); S/P cervical spinal fusion 02/24/2025 Plan of Care Documentation [facility]- [address] [place] [phone] 02/24/2025 Scanned Document [facility] [place] [address] [facility] [address] [place] [address] Makayla Campos MD 02/19/2025 11:40 AM EDT Ancillary Procedure [facility] [address] [place] [phone] Provider, File Room 02/19/2025 11:35 AM EDT Ancillary Procedure [facility] [address] [place] [phone] Provider, File Room 02/19/2025 11:35 AM EDT Ancillary Procedure [facility] [address] [place] [phone] Provider, File Room 02/19/2025 10:00 AM EDT Office Visit [facility] [address] [facility] [address] [place] [address] Leatha Mc PA S/P cervical spinal fusion (Primary Dx); Dysphonia; Cervical disc disorder with radiculopathy; Fibromuscular dysplasia 02/17/2025 Scanned Document [facility] [address] [place] [address] Leatha Mc PA 02/09/2025 Scanned Document [facility] [address] [phone] Neurosurgery, Scan 02/05/2025 8:15 AM EDT - 02/05/2025 12:00 PM EDT Surgery [facility] Services [address] [place] [phone] Makayla Campos MD ACDF 4-6 02/05/2025 8:13 AM EDT Anesthesia Event [facility] [address] [place] [phone] Conrad Jiang MD 02/05/2025 6:14 AM EDT - 02/07/2025 2:04 PM EDT Hospital Encounter [facility] [address] [place] [phone] Makayla Campos MD Cervical spondylosis (Primary Dx) Discharge Disposition: Home or Self Care 02/03/2025 Scanned Document [facility] [address] [facility] [address] [place] [address] Samara Mendoza PA-C 02/03/2025 Results Follow-Up [facility] [address] [place] [address] [place] [address] Ginny White PA 02/02/2025 10:30 AM EDT Pre-Admission Testing [facility] [address] [place] [address] [place] [address] Ginny White PA Pre-op evaluation (Primary Dx); Gastroesophageal reflux disease with esophagitis without hemorrhage; Hypoparathyroidism after procedure; Tachycardia, paroxysmal (HCC); Cervical stenosis of spine; Hemochromatosis, unspecified hemochromatosis type; History of asthma; Mitral valve prolapse; Complication of anesthesia, initial encounter; Prediabetes 02/02/2025 9:00 AM EDT Office Visit [facility] [address] [place] [address] Alonzo Root MD Dysphonia (Primary Dx); Cervical disc disorder; Muscle tension dysphonia 01/27/2025 9:00 AM EDT Consult [facility] [address] [place] [address] Makayla Campos MD Cervical disc disorder with radiculopathy (Primary Dx) 01/27/2025 Scanned Document [facility] [address] [place] [address] Makayla Campos MD 01/24/2025 7:30 PM EDT - 01/25/2025 3:33 PM EDT Hospital Encounter [facility] Emergency Department [address] [facility] [address] Jaswinder Valentine MD Alkasir, Amr, MD Khan, Sana, MD Cervical stenosis of spine (Primary Dx); Cervical stenosis of spinal canal; Chest pain Discharge Disposition: Home or Self Care 01/22/2025 11:20 AM EDT Ancillary Procedure [facility] [address] [facility] [place] [address] Provider, File Room 01/22/2025 Scanned Document [facility] [id number] [address] [facility] [address] [place] [address] Makayla Campos MD from Last 3 Months [...] any time in the past 12 m [facility], were you homeless or living in a [place] health care facility (including now)? No 02/05/2025 [facility] [...] [facility] [place] [address] [facility] [address] [place] [address] Clyde Martin PA [address] [facility] [address] [place] [address] 06/01/2025 10:00 AM EST Office Visit [facility] [address] [facility] [address] [place] [address] Samara Mendoza PA-C [address] [facility] [address] [place] [address] Health Maintenance Due Date Last Done Comments [...] LTG 1 Speech Therapy No Zeina Messer CCC-KITMAN Note: Pt will tolerate least restrictive diet without s/s aspiration. STG 1 Speech Therapy No Zeina Messer [facility]MAN Note: Pt will complete an instrumental swallowing evaluation within 2 weeks. Additional goals to be set as indicated. Medical Devices Implanted Type Area Polystyrene Bead Molder Device Identifier Shelf Expiration Date Model / Serial / Lot [id number] Plate Spine 37.5mm Bone Valentina Vs Elite - [id number] Implanted:Qty : 1 on 02/05/2025 by Makayla Campos MD at [facility] Plate N/A: Spine Cervical [employer] [place] [id number] / / [id number] Screw Bone Spine Cervical Anterior Mcdowell 14mm Ti 4mm - [id number] Implanted:Qty : 4 on 02/05/2025 by Makayla Campos MD at [facility] Spine N/A: Spine Cervical [employer] [place] [id number] / / [id number] Screw Bone Spine Cervical Anterior Mcdowell 13mm Ti 4mm - [id number] Implanted:Qty : 2 on 02/05/2025 by Makayla Campos MD at [facility] Spine N/A: Spine Cervical [employer] [place] [id number] / / [id number] Aalograft Spacer [id number] - [id number] Implanted:Qty : 1 on 02/05/2025 by Makayla Campos MD at [facility] Tissue N/A: Spine Cervical [employer] [facility] 06/02/2027 [id number] / [id number] / [id number] Graft Bone Crstn Asr Lrdtc Canc Aureliano Algrf Spcr [id number] - [id number] Implanted:Qty : 1 on 02/05/2025 by Makayla Campos MD at [facility] Tissue N/A: Spine Cervical [employer] [facility] [place] 05/25/2027 [id number] / [id number] / [id number] Procedures Procedure Name Priority Date/Time Associated Diagnosis Comments CT CHEST ARCHIVE FOR REFERENCE ONLY Routine 04/05/2025 7:54 AM EST CR SPINE ARCHIVE FOR REFERENCE ONLY Routine 04/05/2025 7:[address] CHEST ARCHIVE FOR REFERENCE ONLY Routine 04/05/2025 7:54 AM EST XR CERVICAL SPINE W/FLEX+EXT 6+ VIEWS Routine [...] ANES INTUBATION Routine 02/05/2025 9:05 AM EDT SC ARTHRD ANT INTERBODY DECOMPRESS CERVICAL BELW C2 [...] EDT from Last 3 Months Results * CR Spine Archive for Reference only (04/05/2025 7:54 AM EST) Narrative RACHEL - 04/05/2025 7:54 AM EST This study has been auto finalized and does not contain a result. us File Room Provider IMG DIGITIZE FILMS Final Resu lt RACHEL [phone] * CT Chest Archive for Reference Only (04/05/2025 7:54 AM EST) Only the most recent of2 resultswithin the time period is included. Narrative RACHEL - 04/05/2025 7:54 AM EST This study has been auto finalized and does not contain a result. us File Room Provider IMG DIGITIZE FILMS Final Resu lt RACHEL [phone] * XR Cervical spine w/flex+ext 6+ views (03/26/2025 4:13 PM EST) Only the most recent of2 resultswithin the time period is included. Anatomical Region Laterality Modality C-spine Computed Radiogr aphy 03/26/2025 4:00 PM EST 03/26/2025 4:00 PM EST Impressions 03/30/2025 7:26 AM EST Postoperative changes C4-C6. Positioning appears good. No instability is seen. Electronically signed by: Juan Moran MD 03/30/2025 07:26 AM EST Thank you for referring your patient to us, Juan Moran MD [phone] (Electronically Signed - 03/30/2025 07:26) Copy: PATIENT [...] Moran MD 03/30/2025 07:26 AM EST RPWorkstation: [id number] Thank you for referring your patient to us, Juan Moran MD [phone] (Electronically Signed - 03/30/2025 07:26) Copy: PATIENT , us Lambert MOSS IMG DIAGNOSTIC IMAGING ORDERABLE S Final Result * [...] for referring your patient to us, Minh Nyaak MD [phone] (Electronically Signed - 03/17/2025 15:47) Copy: ROSALIND VIZCARRA NP [facility] [address] [address] Narrative 03/17/2025 3:47 PM EST EXAMINATION: XR [...] Nayak MD 03/17/2025 03:47 PM EST RPWorkstation: [id number] Thank you for referring your patient to us, Minh Nayak MD [phone] (Electronically Signed - 03/17/2025 15:47) Copy: ROSALIND VIZCARRA NP [facility] [address] [place] [address] us Leatha MOSS IMG DIAGNOSTIC IMAGING ORDERAB LES Final Result * FL Modified barium swallow w/speech (02/26/2025 8:56 AM EST) Anatomical Region Laterality Modality Radio Fluoroscop y 02/26/2025 8:21 AM EST Impressions 02/26/2025 4:44 PM EST 1. No aspiration or penetration with tested consistencies. 2. Please see speech language therapist's note for further details. Interpreted by: Manuel Shabazz MD Staff Air Tactical Officer I personally reviewed the images and the [...] further details. Interpreted by: Manuel Shabazz MD Staff Air Tactical Officer I personally reviewed the images and the [...] your patient to us, Juan Moran MD [id number] (Electronically Signed - 03/01/2025 17:56) Copy: MAKAYLA CAMPOS [facility] [place] [address] [facility] [address] [place] [address] [phone] ROSALIND DIAZ ZACKERY WASH TUB MACHINE OPERATOR [facility] [address] [place] [address] PATIENT , Narrative 03/01/2025 5:56 PM EST [...] Moran MD 03/01/2025 05:56 PM EST RPWorkstation: [id number] Thank you for referring your patient to us, Juan Moran MD [id number] (Electronically Signed - 03/01/2025 17:56) Copy: MAKAYLA CAMPOS [facility] [place] [address] [facility] [address] [place], [place] [id number] ROSALIND VIZCARRA WASH TUB MACHINE OPERATOR [facility] [address] [place] [address] PATIENT , us Leatha MOSS IMG DIAGNOSTIC IMAGING ORDERAB LES Final Result * CT Head Archive for Reference Only (02/19/2025 11:33 AM EDT) Only the most recent of2 resultswithin the time period is included. Pito RAMOS - 02/19/2025 11:33 AM EDT This study has been auto finalized and does not contain a result. us File Room Provider IMG DIGITIZE FILMS Final Resu lt Performing Organization Address [facility] de Phone Number RACHEL [phone] * MR Head Archive for Reference Only (02/19/2025 11:32 AM EDT) Pito RAMOS - 02/19/2025 11:32 AM EDT This study has been auto finalized and does not contain a result. File Room Provider IMG DIGITIZE FILMS Final Resu lt Performing Organization Address [facility] de Phone Number RACHEL [phone] * XR Chest 1 view-Portable (02/06/2025 6:08 [...] No acute cardiopulmonary findings. Rosalind Stephens PA-C IMG DIAGNOSTIC IMAGING OR DERABLES Final Result * [...] disc disease at C6-C7, unchanged. Leatha MOSS IMArnoldo DIAGNOSTIC IMAGING ORDERAB LES Final Result * [...] Insertion attempts: 1 us Conrad Jiang MD SC ANESTHESIA Final Result * ANES INTUBATION (02/05/2025 [...] Complications: no complications us Conrad Jiang MD SC ANESTHESIA Final Result * POCT , Urine (02/05/2025 6:48 AM EDT) Preg Test, Ur Negative Negative Lot Number [id number] Interventional Cardiologist Pass Pass Urine 02/05/2025 6:48 AM EDT us Conrad Jiang MD POINT OF CARE TEST ORD ERABLES Final Result * Type and Screen (02/05/2025 6:34 AM EDT) Only the most recent of2 resultswithin the time period is included. ABO/Rh A NEGATIVE 02/05/2025 8:37 AM EDT [facility] Antibody Screen NEGATIVE 8:37 AM EDT [facility] Specimen Expiration 02/08/2025 02/05/2025 8:37 AM EDT [facility] Blood Blood specimen / Unknown 02/05/2025 6:34 AM EDT 02/05/2025 7:26 AM EDT Lambert MOSS BLOOD BANK TEST ORDERABLES Final Result Performing Organization Address City/[facility] Co de Phone Number [address] [address], [address] [address] * (ABNORMAL) Hemoglobin A1c with Estimated Average Glucose (02/02/2025 11:39 AM EDT) Hemoglobin A1C 5.7(H) <5.7 % 02/03/2025 4:30 AM EDT [facility] Comment: A1c% Interpretation 5.7 - 6.0 Increase risk of diabetes 6.1 - 6.4 Higher risk of diabetes > or = 6.5 Consistent with diabetes Diabetes Care, 33(Supp 1):S1-S61, 2009 Estimated Average Glucose 117 mg/dL 02/03/2025 4:30 AM EDT [facility] Blood Blood specimen / Unknown 02/02/2025 11:39 AM EDT 02/02/2025 8:26 PM EDT Ginny MOSS LAB BLOOD ORDERABLES Final Resul t Performing Organization Address City/[facility]/ZIP Co de Phone Number [address] [address], [address] [address] * MRSA PCR Screen, Qualitative: (02/02/2025 11:39 AM EDT) MRSA Result Not Detected Not Detected 10:27 PM EDT [facility] Comment:Performed by the Xpe rt MRSA NxG Assay Swab, Anterior Nares Specimen from nose / Unknown 02/02/2025 11:39 AM EDT 02/02/2025 8:25 PM EDT us Ginny Otoo PA MICROBIOLOGY - GENERAL ORDERABLE S Final Result Performing Organization Address [facility] Co de Phone Number [address] [address], [address] [address] * Partial Thromboplastin Time (PTT) (02/02/2025 11:39 AM EDT) Anticoagulant Information not given 02/02/2025 10:32 AM EDT [facility] Partial Thromboplastin Time (PTT) 25 25 - 36 seconds 02/02/2025 8:44 PM EDT [facility] Blood Blood specimen / Unknown 02/02/2025 11:39 AM EDT 02/02/2025 8:26 PM EDT Ginny Otoo PA LAB BLOOD ORDERABLES Final Resul t Performing Organization Address [facility] Co de Phone Number [address] [address], [address] [address] * Protime-INR (02/02/2025 11:39 AM EDT) [facility] Anticoagulant Information not given 02/02/2025 10:32 AM EDT [facility] Prothrombin Time (PT) 10.8 10.0 - 13.5 seconds 02/02/2025 8:44 PM EDT [facility] INR 0.9 02/02/2025 8:44 PM EDT [facility] Comment:INR Therapeutic Rang es: Standard dose anticoagulant 2.0 to 3.0, High dose anticoagulant 2.5-3.5. Blood Blood specimen / Unknown 02/02/2025 11:39 AM EDT 02/02/2025 8:26 PM EDT Ginny Otoo PA LAB BLOOD ORDERABLES Final Resul t Performing Organization Address City/[facility] [place] [address], [address] [address] * Transferrin (02/02/2025 11:39 AM EDT) Transferrin 209 200 - 360 mg/dL 02/02/2025 8:50 PM EDT [facility] Blood Blood specimen / Unknown 02/02/2025 11:39 AM EDT 02/02/2025 8:26 PM EDT us Ginny Otoo PA LAB BLOOD ORDERABLES Final Resul t Performing Organization Address City/[facility]/ZIP Co de Phone Number [address] [address], [address] [address] * Prealbumin (02/02/2025 11:39 AM EDT) Pathologist [facility] Prealbumin 33 20 - 40 mg/dL 02/02/2025 8:50 PM EDT [facility] Blood Blood specimen / Unknown 02/02/2025 11:39 AM EDT 02/02/2025 8:26 PM EDT us Ginny Otoo PA LAB BLOOD ORDERABLES Final Resul t Performing Organization Address City/[facility] Co de Phone Number [address] [address], [address] [address] * LAB RESULT (02/01/2025) us Scan Primary Care HX AMB PROCEDURES Final Result * (ABNORMAL) High Sensitivity Troponin T (Once) (01/25/2025 3:31 AM EDT) Only the most recent of4 resultswithin the time period is included. Pathologist [facility] High Sensitivity Troponin T 38(H) <15 ng/L 01/25/2025 4:07 AM EDT [facility] Delta (Change) 13(H) <3 01/25/2025 4:07 AM EDT [facility] Comment:Decreased Blood Blood specimen / Unknown 01/25/2025 3:31 AM EDT 01/25/2025 3:35 AM EDT Zaira Stewart MD LAB BLOOD ORDERABLES Final Resul t [facility] [address] [place] [address], [address] [address] * ECG 12 lead (01/25/2025 2:58 AM EDT) Only the most recent of2 resultswithin the time period is included. Pathologist [facility] Ventricular rate 99 BPM EKG [facility] Atrial rate 99 BPM EKG [facility] P-R interval 182 ms EKG [facility] QRS duration 88 ms EKG [facility] Q-T interval 344 ms EKG [facility] QTC calculation (Bazett) 442 ms EKG [facility] P axis 60 degrees EKG [facility] R axis -52 degrees EKG [facility] T axis 30 degrees EKG [facility] 01/25/2025 2:58 AM EDT Narrative EKG [facility] - 01/25/2025 12:02 PM EDT Normal sinus rhythm Left axis deviation Inferior infarct (cited on or before 24-Jan-2025) Cannot rule out Anterior infarct (cited on or before 24-Jan-2025) Abnormal ECG When compared with ECG of 24-Jan-2025 19:20, No significant change was found Confirmed by MD Forte Eric ([id number]) on 01/25/2025 12:02:53 PM Procedure Note Golden [...] ECG ORDERABLES Final Result Performing Organization Address City/[facility]/ZIP Co de Phone Number EKG [facility] * Magnesium (01/24/2025 11:49 PM EDT) Magnesium 2.1 1.6 - 2.7 mg/dL 01/25/2025 2:44 AM EDT [facility] 01/24/2025 11:4 9 PM EDT 01/25/2025 12:01 AM EDT us Jaswinder Valentine MD LAB BLOOD ORDERABLES Final Res ult Performing Organization Address [facility] Co de Phone Number [address] [address], [address] [address] * MRI Cervical spine w/o contrast (01/24/2025 10:41 PM EDT) Anatomical Region Laterality Modality C-spine Magnetic Resonan ce 01/24/2025 9:42 PM EDT Addenda Addendum by Capo Constantino MD on 01/26/2025 8:50 AM EDT ADDENDUM #1 Results Acknowledgement: This was communicated to Dr. Jaswinder Valentine by a physician community support associate at 11:25 PM on 01/24/2025. Impressions 01/24/2025 [...] Acknowledgement: This was communicated to Dr. Jaswinder Valentnie by a physician community support associate at 11:25 PM on 01/24/2025. Impressions 01/24/2025 [...] 4.0 - 11.0 Thou/uL 01/24/2025 9:07 PM [facility] Platelet Count 364 150 - 450 Thou/uL 01/24/2025 9:07 PM [facility] Hemoglobin 15.2 11.7 - 15.7 g/dL 01/24/2025 9:07 PM [facility] Hematocrit 45.1 35.0 - 47.0 % 01/24/2025 9:07 PM [facility] Red Blood Cell Count 5.10 4.00 - 5.40 Mil/uL 01/24/2025 9:07 PM [facility] MCV 88 80 - 100 fL 01/24/2025 9:07 PM [facility] MCH 29.8 26.0 - 34.0 pg 01/24/2025 9:07 PM [facility] MCHC 33.7 30.0 - 36.0 g/dL 01/24/2025 9:07 PM [facility] RDW 14.1 11.5 - 14.5 % 01/24/2025 9:07 PM [facility] MPV 10.0 7.5 - 12.5 fL 01/24/2025 9:07 PM [facility] Neutrophils Auto 65.3 % 01/25/20 9:07 PM [facility] Immature Granulocytes 1.0 % 01/24/2025 9:07 PM [facility] Lymphocytes Auto 24.4 % 01/25/20 9:07 PM [facility] Monocytes Auto 7.8 % 01/24/2025 9:07 PM EDT [facility] Eosinophils Auto 0.6 % 01/25/20 9:07 PM EDT [facility] Basophils Auto 0.9 % 01/24[facility]25 [facility] PM [facility] Neutrophils Auto 6.04 2.00 - 7.50 Thou/uL 01/24/2025 9:07 PM EDT [facility] Abs Immature Granulocytes 0.09 0.00 - 0.10 Thou/uL 01/24/2025 9:07 PM EDT [facility] Abs Lymphocytes Auto 2.26 1.50 - 4.50 Thou/uL 01/24/2025 9:07 PM EDT [facility] Abs Monocytes Auto 0.72 0.20 - 1.50 Thou/uL 01/24/2025 9:07 PM [facility] Eosinophils Auto 0.06 0.00 - 0.70 Thou/uL 01/24/2025 9:07 PM [facility] Abs Basophils Auto 0.08 0.00 - 0.20 Thou/uL 01/24/2025 9:07 PM EDT [facility] Blood Blood specimen / Unknown 01/24/2025 8:06 PM EDT 01/24/2025 8:57 PM EDT Jaswinder Valentine MD LAB BLOOD ORDERABLES Final Res ult [address] [address], [address] [address] * (ABNORMAL) Comprehensive Metabolic Panel (01/24/2025 8:06 PM EDT) Glucose 101(H) 65 - 99 mg/dL 01/24/2025 9:59 PM EDT [facility] Comment:Fasting: <100 mg/dL, Non-Fasting: <200 mg/dL (ADA 2005) Blood Urea Nitrogen (BUN) 23(H) 8 - 21 mg/dL 01/24/2025 9:59 PM EDT [facility] Creatinine 0.78 0.40 - 1.10 mg/dL 01/24/2025 9:59 PM [facility] eGFR >90 >59 01/24/2025 9:59 PM [facility] Comment:CKD-EPI (2020) in mL /min/1.73 sq meters. Sodium 141 136 - 145 mmol/L 01/24/2025 9:59 PM [facility] Potassium 3.8 3.4 - 5.3 mmol/L 01/24/2025 9:59 PM [facility] Chloride 108(H) 98 - 107 mmol/L 01/24/2025 9:59 PM [facility] CO2 23 22 - 33 mmol/L 01/24/2025 9:59 PM [facility] [facility] Calcium 9.3 8.7 - 10.5 mg/dL 01/24/2025 9:59 PM [facility] Alkaline Phosphatase 59 32 - 122 U/L 01/24/2025 9:59 PM [facility] Aspartate Aminotrans (AST) 15 10 - 50 U/L 01/24/2025 9:59 PM [facility] Alanine Aminotrans (ALT) 17 10 - 50 U/L 01/24/2025 9:59 PM [facility] Bilirubin, Total <0.2(L) 0.2 - 1.0 mg/dL 01/24/2025 9:59 PM [facility] Protein, Total 6.6 6.3 - 8.3 g/dL 01/24/2025 9:59 PM [facility] Albumin 4.1 3.5 - 5.0 g/dL 01/24/2025 9:59 PM [facility] BUN/Creatinine Ratio 29(H) 10.0 - 25.0 Ratio 01/24/2025 9:59 PM [facility] Globulin 2.5 1.5 - 3.9 g/dL 01/24/2025 9:59 PM [facility] Albumin/Globulin Ratio 1.6 1.0 - 3.0 Ratio 01/24/2025 9:59 PM [facility] Anion Gap 10 7 - 17 01/24/2025 9:59 PM [facility] Blood Blood specimen / Unknown 01/24/2025 8:06 PM EDT 01/24/2025 8:57 PM EDT Jaswinder Valentine MD LAB BLOOD ORDERABLES Final Res ult [address] [address], [address] [address] * MR Spine Archive for Reference Only (01/22/2025 11:15 AM EDT) Narrative RACHEL - 01/22/2025 11:15 AM EDT This study has been auto finalized and does not contain a result. us File Room Provider IMG DIGITIZE FILMS Final Resu lt Performing Organization Address City/[facility]/ZIP Co de Phone Number RACHEL [phone] from Last 3 Months Insurance T PPO Advance Directives * Full Code [...] 12:17 PM 03/03/2024 9:09 PM Care Teams Coffee Grinder Relationship Specialty Start Date End Date Rosalind Vizcarra NP [address] [place] [address] PCP - General Family Medicine 03/03/24 Isis Young RN 80 [place] [address] Nurse Navigator Surgery, Neurosurgery 01/25/25 Makayla Campos MD [address] [address] Surgery, Neurosurgery 02/01/25 Magnus Perez MD [address] [place] [phone] Cardiovascular Disease 02/01/25 System, Provider Not In [address] [place] [address] Hematology Oncology 02/01/25 Miki Blackwood MD [address] [place] [address] Endocrinology 02/01/25 Raúl Pike MD [address] [place] [address] 102 [place] [address] Gastroenterology 02/01/25 Jorge Moreno DO [address] [facility] 201 [place] [address] Immunology 02/01/25 Arturo Bunn MD [address] [place] [address] Otolaryngology 02/01/25 Leatha Mc PA [address] [place] [address] 1003 [place] [address] Physician Strapping Machine Operator Surgery, Neurosurgery 02/05/25
--- OUTSIDE RECORDS SUMMARY | 2025-04-08 14:54 | XMS_ITS | Clinical Summary ---
Author Organization [facility] Address [address] [place] [address] Phone Care Team Providers Care Drafter Geological Name Role Phone Brett Sharma NP Primary Care Provider Allergies Active Allergy Reactions Criticality Noted Date Comments [place] Oil Rash Low 04/04/2017 Amoxicillin-Pot Clavulanate Anaphylaxis High 10/19/2013 Cinnamon Unknown Medium 12/31/2023 Doxycycline Anaphylaxis High 05/03/2017 Flavoring Agent (Bulk) Rash Low 04/04/2017 Hydrocodone-Acetaminophen Swelling 05/03/2017 Ibuprofen Anaphylaxis High 12/31/2023 Latex Rash Low 05/21/2019 Meperidine Swelling 05/03/2017 Morphine 09/12/2021 Other Rash Low 04/04/2017 turnips Oxycodone-Acetaminophen Rash,Swelling Low 8 Prednisone Medium 08/28/2022 Other Reaction(s): Other (See Comments) Gustavus Hives Medium 04/04/2017 Tramadol Itching Low 09/12/2023 [...] care for your loved ones. For example, director child or elderly care for an older [...] EST Office Visit Obstetrics and Gynecology - [address] [place] [phone] Faustina Weaver MD [address] [facility] 10[address] [place] [address] Health Maintenance Due Date Last Done Comments [...] Results * Cervical Cancer Screening: HPV (12/31/2023) [facility] Cervical Cancer Screening: HPV Negative, Abstracted Historical Provider HEALTH MAINTENANCE Final Result * HIV Screening (10/17/2022) [facility] HIV Screening Abstracted [facility] Provider HEALTH MAINTENANCE Final Result * Hepatitis C Screening (10/17/2022) [facility] Hepatitis C Screening Abstracted [facility] Provider HEALTH MAINTENANCE Final Result from Last 3 Months or Most Recently Relevant to Health Maintenance Insurance Care Teams Drafter Geological Relationship Specialty Start Date End Date Brett Sharma NP [address] [place], [place] PCP - General Family Medicine 09/11/21
--- OUTSIDE RECORDS SUMMARY | 2025-04-08 14:54 | XMS_ITS | Encounter Summary ---
Author Organization [facility] Address [address] [place] [address] Care Team Providers Care Valet Parking Attendant Name Role Phone Brett Sharma NP Primary Care Provider + [phone] Isis Young RN Unavailable Tip Campos MD Unavailable [phone] Magnus Perez MD Unavailable [phone] System, Provider Not In Unavailable Unavaila Miki Diana MD Unavailable [phone] Raúl Pike MD Unavailable Jorge Moreno DO Unavailable [phone] Arturo Bunn MD Unavailable Leatha Mc Unavailable [phone] Encounter Details Date Type Department Care Team (Late st Contact Info) Description 04/21/2024 Scanned Document [facility] Plastic & Reconstructive Surgery [address] [place] [address] Mary Solomon LPN [address] [address] Social History Tobacco Use Types Packs/Day Years [...] Description 04/26/2025 1:00 PM EST Office Visit [facility] Plastic & Reconstructive Surgery [place] [address] [address] Clyde Martin PA [address] [address] 06/01/2025 10:00 AM EST Office Visit [facility] Neurosurgery [facility] [address] [phone] Samara Mendoza PA-C [address] [phone] documented as of this encounter Visit Diagnoses Not on filedocumented in this encounter Care Teams Valet Parking Attendant Relationship Specialty Start Date End Date Brett Sharma NP [address] [place] [address] PCP - General Family Medicine 03/03/24 Isis Young RN 80 [place] [address] Nurse Navigator Surgery, Neurosurgery 01/25/25 Tip Campos MD [address] [address] Surgery, Neurosurgery 02/01/25 Magnus Perez MD [address] [place] [phone] Cardiovascular Disease 02/01/25 System, Provider Not In [address] [place] [address] Hematology Oncology 02/01/25 Miki Blackwood MD [address] [place] [address] Endocrinology 02/01/25 Raúl Pike MD [address] [place] [address] Gastroenterology 02/01/25 Jorge Moreno DO 269 [facility] 201 [place] [address] Immunology 02/01/25 Arturo Bunn MD [address] [place] [address] Otolaryngology 02/01/25 Leatha Mc PA [address] [place] [address] Physician Greige Goods Inspector Surgery, Neurosurgery 02/05/25 documented as of this encounter
--- OUTSIDE RECORDS SUMMARY | 2025-04-08 14:54 | XMS_ITS | Encounter Summary ---
Author Organization [facility] Address [address] [place] [address] Care Team Providers Care Care Technician Name Role Phone Brett Sharma NP Primary Care Provider + [phone] Isis Young RN Unavailable Tip Campos MD Unavailable [phone] Magnus Perez MD Unavailable [phone] System, Provider Not In Unavailable Unavaila Miki Diana MD Unavailable [phone] Raúl Pike MD Unavailable [phone] Jorge Moreno DO Unavailable [phone] Arturo Bunn MD Unavailable Leatha Mc Unavailable [phone] Encounter Details Date Type Department Care Team (Late st Contact Info) Description 03/09/2025 Scanned Document [facility] Neurosurgery [address] [address] Leatha Mc PA [address] [address] Social History Tobacco Use Types [...] any time in the past 12 m [facility], were you homeless or living in a senior care (including now)? No 02/05/2025 [facility] Utilities Answer Date Recorded In the [...] Description 04/26/2025 1:00 PM EST Office Visit [facility] Plastic & Reconstructive Surgery [address] [place] [address] Clyde Martin PA 399 [facility] 210 [place] [address] 06/01/2025 10:00 AM EST Office Visit [facility] Neurosurgery [place] [address] [phone] Samara Mendoza PA-C [address] [address] documented as of this encounter Goals Goal Patient Goal Type Associated Problems Recent Progress Patient-Stated? Author ST LTG 1 Speech Therapy No Zeina Messer CCC-SCIENTIFIC RECRUITER Note: Pt will tolerate least restrictive diet without s/s aspiration. ST STG 1 Speech Therapy No Zeina Messer CCC-SCIENTIFIC RECRUITER Note: Pt will complete an instrumental swallowing evaluation within 2 weeks. Additional goals to be set as indicated. documented as of this encounter Visit Diagnoses Not on filedocumented in this encounter Care Teams Care Technician Relationship Specialty Start Date End Date Brett Sharma NP 262 [place] [address] PCP - General Family Medicine 03/03/24 Isis Young RN 80 [place] [address] Nurse Navigator Surgery, Neurosurgery 01/25/25 Tip Campos MD [address] [place] [address] Surgery, Neurosurgery 02/01/25 Magnus Perez MD [address] [place] [phone] Cardiovascular Disease 02/01/25 System, Provider Not In [address] [place] [address] Hematology Oncology 02/01/25 Miki Blackwood MD 15 [place] [address] Endocrinology 02/01/25 Raúl Pike MD [address] [place] [address] Gastroenterology 02/01/25 Jorge Moreno DO 269 [facility] 201 [place] [address] Immunology 02/01/25 Arturo Bunn MD [address] [place] [address] Otolaryngology 02/01/25 Leatha Mc PA [address] [place] [address] [place] [address] Physician Transit Planning Manager Surgery, Neurosurgery 02/05/25 documented as of this encounter
--- OUTSIDE RECORDS SUMMARY | 2025-04-08 14:54 | XMS_ITS | Encounter Summary ---
Author Organization [facility] Address [address] [place] [address] Care Team Providers Care Senior Sql Database Developer Name Role Phone Brett Sharma NP Primary Care Provider + [phone] Isis Young RN Unavailable Tip Campos MD Unavailable [phone] Magnus Perez MD Unavailable [phone] System, Provider Not In Unavailable Unavaila Miki Diana MD Unavailable [phone] Raúl Pike MD Unavailable Jorge Moreno DO Unavailable Arturo Bunn MD Unavailable Leatha Mc Unavailable [phone] Encounter Details Date Type Department Care Team (Late st Contact Info) Description 02/03/2025 Scanned Document [facility] Neurosurgery [place] 85 [facility] [address] [place] [address] Samara Mendoza PA-C 85 [facility] Joshua [address] [place] [address] Social History Tobacco Use Types Packs/Day [...] time in the past 12 m [facility], were you homeless or living in a prison (including now)? No 02/05/2025 [facility] Utilities Answer Date Recorded In [...] Description 04/26/2025 1:00 PM EST Office Visit [facility] Plastic & Reconstructive Surgery [place] 399 [facility] 210 [place] [address] Clyde Martin PA [address] [place] [address] 06/01/2025 10:00 AM EST Office Visit [facility] Neurosurgery [place] 85 [facility] 1003 [place] [phone] Samara Mendoza PA-C 85 [facility] [address] [place] [phone] documented as of this encounter Visit Diagnoses Not on filedocumented in this encounter Care Teams Senior Sql Database Developer Relationship Specialty Start Date End Date Brett Sharma NP [address] [place] [address] PCP - General Family Medicine 03/03/24 Isis Young RN 80 [place] [address] Nurse Navigator Surgery, Neurosurgery 01/25/25 Tip Campos MD 85 [facility] [place] 1003 [place] [address] Surgery, Neurosurgery 02/01/25 Magnus Perez MD [address] [place] [phone] Cardiovascular Disease 02/01/25 System, Provider Not In [address] [place] [phone] Hematology Oncology 02/01/25 Miki Blackwood MD [address] [place] [address] Endocrinology 02/01/25 Raúl Pike MD [address] [place] [address] Gastroenterology 02/01/25 Jorge Moreno DO [address] [place] [address] 201 [place] [address] Immunology 02/01/25 Arturo Bunn MD [address] [place] [address] Otolaryngology 02/01/25 Leatha Mc PA 85 [facility] 1003 [place] [address] Physician Men'S Swim Coach Surgery, Neurosurgery 02/05/25 documented as of this encounter
--- OUTSIDE RECORDS SUMMARY | 2025-04-08 14:54 | XMS_ITS | Encounter Summary ---
Author Organization [facility] Address [address] [place] [address] Care Team Providers Care Plumbing Foreman Name Role Phone Brett Sharma NP Primary Care Provider + [phone] Isis Young RN Unavailable [phone] Tip Campos MD Unavailable [phone] Magnus Perez MD Unavailable [phone] System, Provider Not In Unavailable Unavaila Miki Diana MD Unavailable [phone] Raúl Pike MD Unavailable Jorge Moreno DO Unavailable [phone] Arturo Bunn MD Unavailable Leatha Mc Unavailable [phone] Encounter Details Date Type Department Care Team (Late st Contact Info) Description 03/19/2025 Scanned Document [facility] Neurosurgery [address] [address] Tip Campos MD [address] [place] [address] Social History Tobacco Use Types Packs/Day [...] any time in the past 12 m [facility], were you homeless or living in a assisted (including now)? No 02/05/2025 [facility] Utilities Answer Date Recorded In the [...] Description 04/26/2025 1:00 PM EST Office Visit [facility] Plastic & Reconstructive Surgery [address] [place] [address] Clyde Martin PA 399 [facility] 210 [place] [address] 06/01/2025 10:00 AM EST Office Visit [facility] Neurosurgery [place] [address] [phone] Samara Mendoza PA-C [address] [address] documented as of this encounter Goals Goal Patient Goal Type Associated Problems Recent Progress Patient-Stated? Author ST LTG 1 Speech Therapy No Zeina Messer CCC-NEON SIGN SERVICER Note: Pt will tolerate least restrictive diet without s/s aspiration. ST STG 1 Speech Therapy No Zeina Messer CCC-NEON SIGN SERVICER Note: Pt will complete an instrumental swallowing evaluation within 2 weeks. Additional goals to be set as indicated. documented as of this encounter Visit Diagnoses Not on filedocumented in this encounter Care Teams Plumbing Foreman Relationship Specialty Start Date End Date Brett Sharma NP 262 [place] [address] PCP - General Family Medicine 03/03/24 Isis Young RN 80 [place] [address] Nurse Navigator Surgery, Neurosurgery 01/25/25 Tip Campos MD [address] [place] [address] Surgery, Neurosurgery 02/01/25 Magnus Perez MD [address] [place] [phone] Cardiovascular Disease 02/01/25 System, Provider Not In [address] [place] [address] Hematology Oncology 02/01/25 Miki Blackwood MD 15 [place] [address] Endocrinology 02/01/25 Raúl Pike MD [address] [place] [address] Gastroenterology 02/01/25 Jorge Moreno DO 269 [facility] 201 [place] [address] Immunology 02/01/25 Arturo Bunn MD [address] [place] [address] Otolaryngology 02/01/25 Leatha Mc PA [address] [place] [address] [place] [address] Physician Residential Housekeeper Surgery, Neurosurgery 02/05/25 documented as of this encounter
--- OUTSIDE RECORDS SUMMARY | 2025-04-08 14:54 | XMS_ITS | Encounter Summary ---
Author Organization [facility] Address [address] [place] [address] Care Team Providers Care Sales Trainer Name Role Phone Brett Sharma NP Primary Care Provider + [phone] Isis Young RN Unavailable Tip Campos MD Unavailable [phone] Magnus Perez MD Unavailable System, Provider Not In Unavailable Unavaila Miki Diana MD Unavailable [phone] Raúl Pike MD Unavailable Jorge Moreno DO Unavailable Arturo Bunn MD Unavailable Leatha Mc Unavailable [phone] Encounter Details Date Type Department Care Team (Late st Contact Info) Description 03/04/2024 Scanned Document [facility] Plastic & Reconstructive Surgery [address] [place] [address] Michael Long MD [address] [place] [address] 210 [place] [address] Social History Tobacco Use Types Packs/Day Years [...] Description 04/26/2025 1:00 PM EST Office Visit [facility] Plastic & Reconstructive Surgery [place] [address] [phone] Clyde Martin PA [address] [place] [address] 06/01/2025 10:00 AM EST Office Visit [facility] Neurosurgery [place] [address] [phone] Samara Mendoza PA-C [address] [phone] documented as of this encounter Visit Diagnoses Not on filedocumented in this encounter Care Teams Sales Trainer Relationship Specialty Start Date End Date Brett Sharma NP [address] [place] [address] PCP - General Family Medicine 03/03/24 Isis Young RN 80 [place] [address] Nurse Navigator Surgery, Neurosurgery 01/25/25 Tip Campos MD [address] [place] [address] [place] [address] Surgery, Neurosurgery 02/01/25 Magnus Perez MD [address] [place] [phone] Cardiovascular Disease 02/01/25 System, Provider Not In [address] [place] [phone] Hematology Oncology 02/01/25 Miki Blackwood MD [address] [place] [address] Endocrinology 02/01/25 Raúl Pike MD [address] [place] [address] Gastroenterology 02/01/25 oJrge Moreno DO 269 [facility] 201 [place] [address] Immunology 02/01/25 Arturo Bunn MD [address] [place] [address] Otolaryngology 02/01/25 Leatha Mc PA 85 [facility] [address] [place] [address] Physician Pulp House Supervisor Surgery, Neurosurgery 02/05/25 documented as of this encounter
--- OUTSIDE RECORDS SUMMARY | 2025-04-08 14:54 | XMS_ITS | Encounter Summary ---
Author Organization [facility] Address 100 [place] [address] Care Team Providers Care Digital Community Manager Name Role Phone Brett Sharma NP Primary Care Provider [phone] Isis Young RN Unavailable [phone] Tip Campos MD Unavailable Magnus Perez MD Unavailable System, Provider Not In Unavailable Unavaila Miki Diana MD Unavailable [phone] Raúl Pike MD Unavailable Jorge Moreno DO Unavailable Arturo Bunn MD Unavailable Leatha Mc Unavailable [phone] Encounter Details Date Type Department Care Team (Late st Contact Info) Description 02/03/2025 Results Follow-Up [facility] [place] [address] [place] [address] 2nd [address] [place] [address] Ginny White PA [address] [place] [address] [address] [place] [address] Social History Tobacco Use Types [...] any time in the past 12 m [facility], were you homeless or living in a retirement (including now)? No 02/05/2025 [facility] Utilities Answer Date Recorded In the past 12 months has th e REEL Qualified, gas, oil, or water [employer] threatened to shut off services in your [...] things Not at all 02/05/2025 6:49 AM [facility] Lisa Anaya RN Feeling down, depressed, or hopeless Not at all 02/05/2025 6:49 AM EDT Lisa Anaya R N * Over the past 2 weeks, how [...] Description 04/26/2025 1:00 PM EST Office Visit [facility] Plastic & Reconstructive Surgery [address] [address] Clyde Martin PA [address] [place] [address] 06/01/2025 10:00 AM EST Office Visit [facility] Neurosurgery [place] 85 [facility] [address] [place] [phone] Samara Mendoza PA-C [address] [address] documented as of this encounter Goals Goal Patient Goal Type Associated Problems Recent Progress Patient-Stated? Author LTG 1 Speech Therapy No Zeina Messer CCC-MARINE ENGINE MACHINIST APPRENTICE Note: Pt will tolerate least restrictive diet without s/s aspiration. STG 1 Speech Therapy No Zeina Messer CCC-MARINE ENGINE MACHINIST APPRENTICE Note: Pt will complete an instrumental swallowing evaluation within 2 weeks. Additional goals to be set as indicated. documented as of this encounter Visit Diagnoses Not on filedocumented in this encounter Care Teams Digital Community Manager Relationship Specialty Start Date End Date Brett Sharma NP 262 [place] [address] PCP - General Family Medicine 03/03/24 Isis Young RN 80 [place] [address] Nurse Navigator Surgery, Neurosurgery 01/25/25 Tip Campos MD [address] [place] [address] Surgery, Neurosurgery 02/01/25 Magnus Perez MD [address] [place] [phone] Cardiovascular Disease 02/01/25 System, Provider Not In [address] [place] [phone] Hematology Oncology 02/01/25 Miki Blackwood MD [address] [place] [address] Endocrinology 02/01/25 Raúl Pike MD [address] [place] [address] Gastroenterology 02/01/25 Jorge Moreno DO [address] [place] [address] Immunology 02/01/25 Arturo Bunn MD [address] [place] [address] Otolaryngology 02/01/25 Leatha Mc PA [address] [address] Physician Roof Tile Layer Surgery, Neurosurgery 02/05/25 documented as of this encounter
--- OUTSIDE RECORDS SUMMARY | 2025-04-08 14:54 | XMS_ITS | Encounter Summary ---
Author Organization [facility] Address [address] [place] [address] Care Team Providers Care Information Broker Name Role Phone Brett Sharma NP Primary Care Provider + [phone] Isis Young RN Unavailable Tip Campos MD Unavailable [phone] Magnus Perez MD Unavailable [phone] System, Provider Not In Unavailable Unavaila Miki Diana MD Unavailable [phone] Raúl Pike MD Unavailable [phone] Jorge Moreno DO Unavailable [phone] Arturo Bunn MD Unavailable Leatha Mc Unavailable [phone] Encounter Details Date Type Department Care Team (Late st Contact Info) Description 02/17/2025 Scanned Document [facility] Neurosurgery [address] [address] Leatha Mc PA [address] [address] Social History Tobacco Use Types [...] were you homeless or living in a halfway (including now)? No 02/05/2025 [facility] Util[facility] Answer Date Recorded In the [...] Description 04/26/2025 1:00 PM EST Office Visit [facility] Plastic & Reconstructive Surgery [address] [place] [address] Clyde Martin PA 399 [facility] 210 [place] [address] 06/01/2025 10:00 AM EST Office Visit [facility] Neurosurgery [place] 85 [facility] [address] [place] [phone] Samara Mendoza PA-C [address] [address] documented as of this encounter Visit Diagnoses Not on filedocumented in this encounter Care Teams Information Broker Relationship Specialty Start Date End Date Brett Sharma NP 262 [place] [address] PCP - General Family Medicine 03/03/24 Isis Young, DANE 80 [place] [address] Nurse Navigator Surgery, Neurosurgery 01/25/25 Tip Campos MD [address] [place] [address] Surgery, Neurosurgery 02/01/25 Magnus Perez MD [address] [place] [phone] Cardiovascular Disease 02/01/25 System, Provider Not In [address] [place] [phone] Hematology Oncology 02/01/25 Miki Blackwood MD [address] [place] [address] Endocrinology 02/01/25 Raúl Pike MD [address] [place] [address] 102 [place] [address] Gastroenterology 02/01/25 Jorge Moreno DO 269 [facility] 201 [place] [address] Immunology 02/01/25 Arturo Bunn MD [address] [place] [address] Otolaryngology 02/01/25 Leatha Mc PA [address] [place] [address] 1003 [place] [address] Physician Dragsaw Operator Surgery, Neurosurgery 02/05/25 documented as of this encounter
--- OUTSIDE RECORDS SUMMARY | 2025-04-08 14:55 | XMS_ITS | Encounter Summary ---
Author Organization [facility] Address [address] [facility] [address] [place] [address] Phone Care Team Providers Care Crane Rigger Name Role Phone Pcp, Not Required Primary Care Provider Arturo Castillo MD, PhD Unavailable [phone] Rylee Zendejas INSURANCE UNDERWRITING ASSISTANT Primary Care Provider Unknown, Unknown Primary Care Provider Rylee Sanchez INSURANCE UNDERWRITING ASSISTANT Primary Care Provider Brett Sharma INSURANCE UNDERWRITING ASSISTANT Primary Care Provider + Encounter Details Date Type Department Care Team (Late st Contact Info) Description 02/03/2018 Procedure Pass [facility] General Imaging 55 [place] [address] Social History Tobacco Use Types Packs/Day Years [...] Description 04/13/2025 3:00 PM EST Office Visit [facility] 15 [facility], [address] [place] [address] Miki Blackwood MD [address] [place] [address] [address] [place] [address] [email or web address] 04/29/2025 10:30 AM EST Office Visit [facility] 55 [facility], 5th [place] [address] Ranjit Morley MD 15 [facility] 535 [place] [address] MARCELA@[email or web address] 05/18/2025 8:45 AM EST Evaluation [facility] [address] [place] [address] Charissa Lew AuD [address] [place] [address] [email or web address] 05/18/2025 9:30 AM EST Office Visit [facility] Otology [facility] [address] [place] [address] Arturo Bunn MD, PhD [address] [place] [address] [email or web address] 08/27/2025 9:10 AM EDT Office Visit [facility] 70 [place] [address] Pooja Jacob MD [address] [address] [email or web address] 09/24/2025 10:30 AM EDT Office Visit [facility] Cardiology Clinic [address] [facility], [address] [place] [address] Magnus Perez MD 55 [facility] YAW [address] [place] [address] [email or web address] documented as of this encounter Visit Diagnoses Not on filedocumented in this encounter Care Teams Crane Rigger Relationship Specialty Start Date End Date Pcp, Not Required PCP - General 08/24/16 04/26/19 Rylee Zendejas NP [address] [place] [address] [email or web address] PCP - General Family Medicine 04/27/19 06/15/19 Unknown, Cesario, [address] [place] [address] PCP - General 06/16/19 06/22/19 Rylee Zendejas NP [address] [place] [address] [place] [address] [email or web address] PCP - General Family Medicine 06/23/19 08/15/21 Brett Sharma, SELWYN [address] [place] [address] [place] [address] PCP - General Family Medicine 08/16/21 Arturo Lawrence MD, PhD [address] [place] [address] [facility] 7[address] [place] [address] [email or web address] Hematology and Oncology 07/06/17 documented as of this encounter Additional Source Comments The information contained in this document represents components of the legal health record. It is not the complete legal health record.[facility]
--- OUTSIDE RECORDS SUMMARY | 2025-04-08 14:55 | XMS_ITS | Encounter Summary ---
Author Organization [facility] Address 399 [facility] [address] [place] [address] Phone Care Team Providers Care Medical Record Consultant Name Role Phone Arturo Lawrence MD, PhD Unavailable [phone] Brett Sharma NP Primary Care Provider + Encounter Details Date Type Department Care Team (Late st Contact Info) Description 09/28/2022 Procedure Pass [facility] [place] 32 [facility], 6th [place] [address] Social History Tobacco Use Types Packs/Day Years [...] Description 04/13/2025 3:00 PM EST Office Visit [facility] 15 [facility], [address] [place] [address] Miki Blackwood MD 55 [facility] [address] [place] [address] [email or web address] 04/29/2025 10:30 AM EST Office Visit [facility] 55 [facility], 5th [place] [address] Ranjit Morley MD 15 [facility] 535 [place] [address] [email or web address] 05/18/2025 8:45 AM EST Evaluation [facility] Aud[facility] [address] [place] [address] Charissa Lew AuD [address] [place] [address] Amanda@[email or web address] 05/18/2025 9:30 AM EST Office Visit [facility]ology [facility] [address] [place] [address] Arturo Bunn MD, PhD [address] [place] [address] [email or web address] 08/27/2025 9:10 AM EDT Office Visit [facility] 70 [place] [address] Pooja Jacob MD [address] [address] [email or web address] 09/24/2025 10:30 AM EDT Office Visit [facility] 52 [facility], [address] [place] [address] Magnus Perez MD 55 [facility] 5[address] [place] [address] [email or web address] documented as of this encounter Visit Diagnoses Not on filedocumented in this encounter Care Teams Medical Record Consultant Relationship Specialty Start Date End Date Brett Sharma NP [address] [place] [address] PCP - General Family Medicine 08/16/21 Arturo Lawrence MD, PhD [address] [place] [address] Outpatient CareYAW 7B [place] [address] [email or web address] Hematology and Oncology 07/06/17 documented as of this encounter Additional Source Comments The information contained in this document represents components of the legal health record. It is not the complete legal health record.[facility]
--- OUTSIDE RECORDS SUMMARY | 2025-04-08 14:55 | XMS_ITS | Encounter Summary ---
Author Organization [facility] Address [address] [place] [address] Care Team Providers Care Canteen Operator Name Role Phone Pcp, No Primary Care Provider Unavailabl Brett Iqbal NP Primary Care Provider [phone] Isis Young RN Unavailable [phone] Tip Campos MD Unavailable Magnus Perez MD Unavailable System, Provider Not In Unavailable Unavaila Miki Diana MD Unavailable Raúl Pike MD Unavailable [phone] Jorge Moreno DO Unavailable [phone] Arturo Bunn MD Unavailable Leatha Mc Unavailable [phone] Encounter Details Date Type Department Care Team (Late st Contact Info) Description 02/27/2024 Scanned Document [facility] Plastic & Reconstructive Surgery [address] 210 [place] [phone] Michael Long MD [address] [place] [address] 210 [place] [address] Social History Tobacco Use Types Packs/Day Years [...] Description 04/26/2025 1:00 PM EST Office Visit [facility] Plastic & Reconstructive Surgery [address] [address] Cldye Martin PA [address] [place] [address] 06/01/2025 10:00 AM EST Office Visit [facility] Neurosurgery [place] [address] [phone] Samara Mendoza PA-C [address] [address] documented as of this encounter Visit Diagnoses Not on filedocumented in this encounter Care Teams Canteen Operator Relationship Specialty Start Date End Date Pcp, No PCP - General General Medicine 03/04/19 03/02/24 Brett Sharma NP [address] [place] [address] PCP - General Family Medicine 03/03/24 Isis Young RN 80 [place] [address] Nurse Navigator Surgery, Neurosurgery 01/25/25 Tip Campos MD [address] [address] Surgery, Neurosurgery 02/01/25 Magnus Perez MD [address] [place] [phone] Cardiovascular Disease 02/01/25 System, Provider Not In [address] [place] [phone] Hematology Oncology 02/01/25 Miki Blackwood MD [address] [place] [address] Endocrinology 02/01/25 Raúl Pike MD [address] [place] [address] Gastroenterology 02/01/25 Jorge Moreno DO [address] [place] [address] Immunology 02/01/25 Arturo Bunn MD [address] [place] [address] Otolaryngology 02/01/25 Leatha Mc PA [address] [address] Physician Train System Operator Surgery, Neurosurgery 02/05/25 documented as of this encounter
--- OUTSIDE RECORDS SUMMARY | 2025-04-08 14:55 | XMS_ITS | Encounter Summary ---
Author Organization [facility] Address 399 [facility] [address] [place] [address] Phone Care Team Providers Care Heat And Frost Insulator Name Role Phone Arturo Lawrence MD, PhD Unavailable [phone] Brett Sharma NP Primary Care Provider + Encounter Details Date Type Department Care Team (Late Contact Info) Description 09/25/2023 Procedure Pass [facility] [address] [place] [phone] Social History Tobacco Use Types Packs/Day Years [...] Description 04/13/2025 3:00 PM EST Office Visit [facility] 15 [facility], [address] [place] [address] Miki Blackwood MD 55 [facility] [address] [place] [address] [email or web address] 04/29/2025 10:30 AM EST Office Visit [facility] 55 [facility], 5th [place] [address] Ranjit Morley MD 15 [facility] 535 [place] [address] [email or web address] 05/18/2025 8:45 AM EST Evaluation [facility] Ear Audiology Clinic [address] [place] [address] Charissa Lew AuD [address] [place] [address] [email or web address] 05/18/2025 9:30 AM EST Office Visit [facility] Otology [facility] [address] [place] [address] Atruro Bunn MD, PhD [address] [place] [address] [email or web address] 08/27/2025 9:10 AM EDT Office Visit [facility] 70 [place] [address] Pooja Jacob MD [address] [address] [email or web address] 09/24/2025 10:30 AM EDT Office Visit [facility] [address] [facility], [address] [place] [address] Magnus Perez MD 55 [facility] 5B [place] [address] [email or web address] documented as of this encounter Visit Diagnoses Not on filedocumented in this encounter Care Teams Heat And Frost Insulator Relationship Specialty Start Date End Date Brett Sharma, SELWYN [address] [facility] [place] [address] PCP - General Family Medicine 08/16/21 Arturo Lawrence MD, PhD [address] [place] [address] Outpatient CareY[facility] 7[address] [place] [address] [email or web address] Hematology and Oncology 07/06/17 documented as of this encounter Additional Source Comments The information contained in this document represents components of the legal health record. It is not the complete legal health record.[facility]
--- OUTSIDE RECORDS SUMMARY | 2025-04-08 14:55 | XMS_ITS | Encounter Summary ---
Author Organization [facility] Address [address] [place] [address] Care Team Providers Care Business Services Specialist Sales Name Role Phone Brett Sharma NP Primary Care Provider + [phone] Isis Young RN Unavailable [phone] Tip Campos MD Unavailable Magnus Perez MD Unavailable [phone] System, Provider Not In Unavailable Unavaila Miki Diana MD Unavailable [phone] Raúl Pike MD Unavailable [phone] Jorge Moreno DO Unavailable [phone] Arturo Bunn MD Unavailable Leatha Mc Unavailable [phone] Encounter Details Date Type Department Care Team (Late st Contact Info) Description 01/22/2025 Scanned Document [id number] [address] [place] [phone] Tip Campos MD [address] [place] [address] [place] [address] Social History Tobacco Use Types Packs/Day [...] [facility] Plastic & Re[facility]ive Surgery [place] [address] [address] Clyde Martin PA [address] [place] [address] 06/01/2025 10:00 AM EST Office [facility] Neurosurgery [place] [address] [phone] Samara Mendoza PA-C [address] [phone] documented as of this encounter Visit Diagnoses Not on filedocumented in this encounter Care Teams Business Services Specialist Sales Relationship Specialty Start Date End Date Brett Sharma NP [address] [place] [address] PCP - General Family Medicine 03/03/24 Isis Young RN 80 [place] [address] Nurse Navigator Surgery, Neurosurgery 01/25/25 Tip Campos MD [address] [address] Surgery, Neurosurgery 02/01/25 Magnus Perez MD [address] [place] [phone] Cardiovascular Disease 02/01/25 System, Provider Not In [address] [place] [phone] Hematology Oncology 02/01/25 Miki Blackwood MD [address] [place] [address] Endocrinology 02/01/25 Raúl Pike MD [address] [place] [address] Gastroenterology 02/01/25 Jorge Moreno DO 269 [facility] 201 [place] [address] Immunology 02/01/25 Arturo Bunn MD [address] [place] [address] Otolaryngology 02/01/25 Leatha Mc PA [address] [address] Physician Loom Operator Apprentice Surgery, Neurosurgery 02/05/25 documented as of this encounter
--- OUTSIDE RECORDS SUMMARY | 2025-04-08 14:55 | XMS_ITS | Encounter Summary ---
Author Organization [facility] Address 399 [facility] [address] [place] [address] Phone Care Team Providers Care Investigative Writer Name Role Phone Arturo Lawrence MD, PhD Unavailable [phone] Brett Sharma NP Primary Care Provider + Encounter Details Date Type Department Care Team (Late st Contact Info) Description 08/28/2022 Procedure Pass [facility], Ct Scan - [address] [address] Social History Tobacco Use Types Packs/Day Years [...] 08/28/2022 4:56 AM Eli Rios, RN * [place] Suicide Severity Rating Scale (Screener/Recent Self-Report) Question [...] Description 04/13/2025 3:00 PM EST Office Visit [facility] 15 [facility], [address] [place] [address] Miki Blackwood MD [address] [place] [address] [address] [place] [address] [email or web address] 04/29/2025 10:30 AM EST Office Visit [facility] [address] [place] [address], 5th [place] [address] Ranjit Morley MD [address] [address] MARCELA@[email or web address] 05/18/2025 8:45 AM EST Evaluation [facility] Audiology Clinic [address] [place] [address] Charissa Lew AuD [address] [place] [address] [email or web address] 05/18/2025 9:30 AM EST [facility] [address] [place] [address] Arturo Bunn MD, PhD [address] [place] [address] [email or web address] 08/27/2025 9:10 AM EDT Office Visit [facility] 70 [place] [address] Pooja Jacob MD 75 [facility]3 [place] [address] [email or web address] 09/24/2025 10:30 AM EDT Office Visit [facility] Cardiology [facility] [address] [facility], [address] [place] [address] Magnus Perez MD 55 [facility] 5B [place] [address] [email or web address] documented as of this encounter Visit Diagnoses Not on filedocumented in this encounter Care Teams Investigative Writer Relationship Specialty Start Date End Date Brett Sharma NP [address] [facility] [place] [address] PCP - General Family Medicine 08/16/21 Arturo Lawrence MD, PhD 55 [facility] Care[facility] 7[address] [place] [address] [email or web address] Hematology and Oncology 07/06/17 documented as of this encounter Additional Source Comments The information contained in this document represents components of the legal health record. It is not the complete legal health record.[facility]
--- OUTSIDE RECORDS SUMMARY | 2025-04-08 14:55 | XMS_ITS | Patient Health Record ---
Author Organization [facility] Address [address] [place] [address] Care Team Providers Care Cardio Tech Name Role Phone Rylee Dang Primary Care [...] Test Reviewed date:09/09/2024 08:27:13 AM Interpretation: Performing Lab:[facility], [address] [place] [phone] Notes/Report: Urine NEGATIVE NEGATIVE This test was developed to detect early . False negative results may occur after the 5th - 7th week of when using this test method. If clinically indicated, consider a serum hCG. 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 Problem Dysphagia (66984865) Dysphagia (R13.10) Active confirmed Problem Gastroesophageal reflux disease (773753621) Gastroesophageal reflux disease (K21.9) Active confirmed Problem Elevated liver enzymes level (212622035) Elevated liver function tests (R79.89) Active confirmed Problem Dysphagia (18278878) Dysphagia, unspecified type (R13.10) Active confirmed Problem Hepatic hemangioma (98084502) Hepatic hemangioma (D18.03) Active confirmed Problem Elevated liver enzymes level (697202187) Elevated liver function tests (R94.5) Active confirmed Problem Gastroesophageal reflux disease (695386524) Gastroesophageal reflux disease, unspecified whether esophagitis present (K21.9) Active confirmed Encounters Encounter Location Date Provider Diagnosis [facility] Outpatient [address] [place] [id number] 09/08/2024 Raúl Pike Jr Gamino esophagus K22.70 [facility] [address] [place] [phone] 09/11/2024 Raúl Pike Jr [facility] [address] [place] [phone] 09/16/2024 Raúl Pike Jr Assessments Encounter Date [...] Insured Coverage Start Date Coverage End Date [facility] [address] [place] [id number] ONDINA WINN Self - patient is the insured Medical (General) History Medical History History ICD Code Asthma hemochromatosis, Dr. Arturo Lawrence [facility] mitral valve prolapse Hepatic hemangioma [...]
--- OUTSIDE RECORDS SUMMARY | 2025-04-08 14:55 | XMS_ITS | Encounter Summary ---
Author Organization [facility] Address [address] [place] [address] Care Team Providers Care Spring Assembler Name Role Phone Brett Sharma NP Primary Care Provider + [phone] Isis Young RN Unavailable Tip Campos MD Unavailable [phone] Magnus Perez MD Unavailable [phone] System, Provider Not In Unavailable Unavaila Miki Diana MD Unavailable [phone] Raúl Pike MD Unavailable Jorge Moreno DO Unavailable Arturo Bunn MD Unavailable Leatha cM Unavailable [phone] Encounter Details Date Type Department Care Team (Late st Contact Info) Description 01/27/2025 Scanned Document [facility] Neurosurgery [address] [place] [address] Tip Campos MD [address] [place] [address] 1003 [place] [address] Social History Tobacco Use Types [...] 1:00 PM EST Office Visit [facility] Plastic & Reconstructive Surgery [address] [address] Clyde Martin PA [address] [place] [address] 06/01/2025 10:00 AM EST Office Visit [facility] Neurosurgery [address] [address] Samara Mendoza PA-C [address] [address] documented as of this encounter Visit Diagnoses Not on filedocumented in this encounter Care Teams Spring Assembler Relationship Specialty Start Date End Date Brett Sharma NP [address] [place] [address] PCP - General Family Medicine 03/03/24 Isis Young RN 80 [place] [address] Nurse Navigator Surgery, Neurosurgery 01/25/25 Tip Campos MD [address] [address] Surgery, Neurosurgery 02/01/25 Magnus Perez MD [address] [place] [phone] Cardiovascular Disease 02/01/25 System, Provider Not In [address] [place] [phone] Hematology Oncology 02/01/25 Miki Blackwood MD [address] [place] [address] Endocrinology 02/01/25 Raúl Pike MD [address] [place] [address] Gastroenterology 02/01/25 Jorge Moreno DO 269 [facility] [address] [place] [address] Immunology 02/01/25 Arturo Bunn MD [address] [place] [address] Otolaryngology 02/01/25 Leatha cM PA [address] [place] [address] Physician Laboratory Monitor Surgery, Neurosurgery 02/05/25 documented as of this encounter
--- OUTSIDE RECORDS SUMMARY | 2025-04-08 14:55 | XMS_ITS | Encounter Summary ---
Author Organization [facility] Address [address] [place] [address] Phone Care Team Providers Care Chauffeur Name Role Phone Arturo Lawrence MD, PhD Unavailable [phone] Brett Sharma NP Primary Care Provider + Reason for Visit * Reason Onset Date Comments s/p procedure question 10/08/2023 Shannen Hernandez Encounter Details Date Type Department Care Team (Late st Contact Info) Description 10/08/2023 Telephone [facility] [address] [facility], 4th Floor, [address] [place] [address] Shannen Hayward MD [address] [place] [address] [email or web address] s/p procedure question (Shannen Hayward) [...] Description 04/13/2025 3:00 PM EST Office Visit [facility] [address] [facility], [address] [place] [address] Miki Blackwood MD 55 [facility] [address] [place] [address] [email or web address] 04/29/2025 10:30 AM EST Office Visit [facility] [address] [place] [address], 5th [place] [address] Ranjit Morley MD [address] [address] [email or web address] 05/18/2025 8:45 AM EST Evaluation [facility] [address] [place] [address] Charissa Lew AuD 243 [place] [address] [email or web address] 05/18/2025 9:30 AM EST Office Visit [facility] [address] [place] [address] Arturo Bunn MD, PhD [address] [place] [address] [email or web address] 08/27/2025 9:10 AM EDT Office Visit [facility] 70 [place] [address] Pooja Jacob MD 75 [facility]3 [place] [address] [email or web address] 09/24/2025 10:30 AM EDT Office Visit [facility] Cardiology [facility] [address] [facility], [address] [place] [address] Magnus Perez MD 55 [facility] [address]B [place] [address] [email or web address] documented as of this encounter Visit Diagnoses Not on filedocumented in this encounter Care Teams Chauffeur Relationship Specialty Start Date End Date Brett Sharma NP [address] [facility] [place] [address] PCP - General Family Medicine 08/16/21 Arturo Lawrence MD, PhD 55 [facility] [address]B [place] [address] [email or web address] Hematology and Oncology 07/06/17 documented as of this encounter Additional Source Comments The information contained in this document represents components of the legal health record. It is not the complete legal health record.[facility]
--- OUTSIDE RECORDS SUMMARY | 2025-04-08 14:55 | XMS_ITS | Clinical Summary ---
Author Organization [facility] Prior to 09/19/[address] [place] [address] Care Team Providers Care Pot Filler Name Role Phone Brett Sharma Primary Care Provider [phone] Allergies Active Allergy Reactions Criticality Noted Date Comments Amoxicillin-Pot Clavulanate Anaphylaxis High 10/19/2013 Cinnamon 12/31/2023 Doxycycline Anaphylaxis High 05/03/2017 Hydrocodone-Acetaminoph en Swelling 05/03/2017 Ibuprofen Anaphylaxis High 12/31/2023 Latex Rash Low 05/21/2019 Meperidine Swelling 05/03/2017 Morphine 09/12/2021 Other Rash Low 04/04/2017 turnips Oxycodone-Acetaminophen Rash,Swelling Low 8 Prednisone Other (See Comments) Medium 08/28/2022 Eland Hives Medium 04/04/2017 Tramadol Itching Low 09/12/2023 [...] age to complete this topic Care Teams Pot Filler Relationship Specialty Start Date End Date Brett Sharma [address] [facility] [place] [address] PCP - General Family Medicine 09/11/21
--- OUTSIDE RECORDS SUMMARY | 2025-04-08 14:55 | XMS_ITS | Encounter Summary ---
Author Organization [facility] Address [address] [place] [address] Care Team Providers Care Drug And Alcohol Counselor Name Role Phone Pcp, No Primary Care Provider Unavailabl Brett Iqbal NP Primary Care Provider [phone] Isis Young RN Unavailable Tip Campos MD Unavailable Magnus Perez MD Unavailable System, Provider Not In Unavailable Unavaila Miki Diana MD Unavailable Raúl Pike MD Unavailable Jorge Moreno DO Unavailable Arturo Bunn MD Unavailable Leatha Mc Unavailable [phone] Encounter Details Date Type Department Care Team (Late st Contact Info) Description 02/27/2024 Scanned Document [facility] Plastic & Reconstructive Surgery [address] [place] [address] Michael Long MD [address] [place] [address] 210 [place] [address] Social History Tobacco Use Types Packs/Day Years [...] 04/26/2025 1:00 PM EST Office Visit [facility] Plastic & Reconstructive Surgery [address] [address] Clyde Martin PA [address] [place] [address] 06/01/2025 10:00 AM EST Office Visit [facility] [place] [address] [phone] Samara Mendoza PA-C [address] [address] documented as of this encounter Visit Diagnoses Not on filedocumented in this encounter Care Teams Drug And Alcohol Counselor Relationship Specialty Start Date End Date Pcp, No PCP - General General Medicine 03/04/19 03/02/24 Brett Sharma NP [address] [place] [address] PCP - General Family Medicine 03/03/24 Isis Young RN 80 [place] [address] Nurse Navigator Surgery, Neurosurgery 01/25/25 Tip Campos MD [address] [address] Surgery, Neurosurgery 02/01/25 Magnus Perez MD [address] [place] [phone] Cardiovascular Disease 02/01/25 System, Provider Not In [address] [place] [phone] Hematology Oncology 02/01/25 Miki Blackwood MD [address] [place] [address] Endocrinology 02/01/25 Raúl Pike MD [address] [place] [address] Gastroenterology 02/01/25 Jorge Moreno DO [address] [place] [address] Immunology 02/01/25 Arturo Bunn MD [address] [place] [address] Otolaryngology 02/01/25 Leatha Mc PA [address] [address] Physician Cadastral Engineer Surgery, Neurosurgery 02/05/25 documented as of this encounter
--- OUTSIDE RECORDS SUMMARY | 2025-04-08 14:55 | XMS_ITS | Clinical Summary ---
Author Organization [facility] Address [address] [address] Phone Care Team Providers Care Process Engineering Technician Name Role Phone Arturo Lawrence MD, PhD Unavailable [phone] Brett Sharma NP Primary Care Provider + Allergies Active Allergy Reactions Criticality Noted Date Comments Allyn Oil Rash Low 04/04/2017 Amoxicillin-Pot Clavulanate Anaphylaxis High 10/19/2013 Flavoring Agent (Bulk) Rash Low 04/04/2017 Meperidine Swelling 05/03/2017 Doxycycline Hyclate Anaphylaxis High 05/03/2017 Ibuprofen 05/23/2022 Throat tightness feels like asthma attack Latex, Natural Rubber Rash Low 05/21/2019 Morphine Itching,Swelling 10/19/2013 Other 08/28/2022 turnip Oxycodone-Acetaminophen Swelling 05/03/2017 Ok with tylenol Prednisone Neuropathy Medium 08/28/2022 [place] Hives Medium 04/04/2017 Tramadol Itching Low 09/12/2023 [...] a review, she has been followed at [facility] in [place]. A prior echocardiogram reports mild posterior mitral [...] the study from July 2017 done in [facility]. She will try to send me [...] repeat echocardiogram in July 2018 at the [facility] facility and then one week later an office visit with me to review the findings. Follow up in July 2018, one week after the repeat echocardiogram. 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 Lawrence for hemochromatosis and receives therapeutic phlebotomy. There is a plan from her tea bag machine tender, Dr. Castle at [place] to perform a cardiac MRI to assess [...] Type Department Care Team Description 02/01/2025 Telephone [facility] Cardiology 55 [place] [address] Magnus Perez MD 01/25/2025 Telephone [facility] [address] [facility], [address] [place] [address] Magnus Perez MD 01/20/2025 Ancillary Orders [facility] Imaging 55 [place] [address] Cesario, MD Cesario 01/19/2025 4:26 PM EDT - 01/19/2025 11:59 PM EDT Hospital Encounter [facility] [address] [place] [address] Jorge Moreno DO Discharge Disposition: Home or Self Care 01/19/2025 Transcribe Orders [facility] 30 [place] [address] Jorge Moreno DO Adverse food reaction, subsequent encounter (Primary Dx); Allergy to other foods 01/18/2025 Orders Only [facility] [address] [facility], 7th [address], [address] [place] [address] Arturo Lawrence MD, PhD 01/17/2025 - 01/17/2025 11:59 PM EDT Hospital Encounter [facility] 55 [place] [address] Unknown, Unknown, MD Discharge Disposition: Home or Self Care 01/15/2025 11:30 AM EDT Evaluation [facility] Audiology [facility] [address] [place] [address] Arturo Bunn MD, PhD Alecia Hogan Sensorineural hearing loss (SNHL) of both ears (Primary Dx) 01/15/2025 11:00 AM EDT Evaluation [facility] [address] [place] [address] Arturo Bunn MD, PhD Sharon Borrego, Luis Sensorineural hearing loss, bilateral 01/15/2025 9:30 AM EDT Office Visit [facility] Otology Clinic [address] [place], [place] [address] Arturo Bunn MD, PhD Sudden left hearing loss (Primary Dx); Sensorineural hearing loss (SNHL), bilateral 01/15/2025 Transcribe Orders [facility] [address] [place] [address] Arturo Bunn MD, PhD Hearing disorder, unspecified laterality (Primary Dx) from Last 3 Months Immunizations [...] Description 04/13/2025 3:00 PM EST Office Visit [facility] [address] [facility], [address] [place] [address] Miki Blackwood MD 55 [facility] [address] [place] [address] [email or web address] 04/29/2025 10:30 AM EST Office Visit [facility]astroenter[facility] 55 [facility], 5th [place] [address] Ranjit Morley MD [address] [address] [email or web address] 05/18/2025 8:45 AM EST Evaluation [facility] [address] [place] [address] Charissa Lew AuD [address] [place] [address] [email or web address] 05/18/2025 9:30 AM EST Office Visit [facility] Otology [facility] [address] [place] [address] Arturo Bunn MD, PhD [address] [place] [address] [email or web address] 08/27/2025 9:10 AM EDT Office Visit [facility] [address] [place] [address] Pooja Jacob MD [address] [address] [email or web address] 09/24/2025 10:30 AM EDT Office Visit [facility] Cardiology [facility] [address] [facility], [address] [place] [address] Magnus Perez MD 55 [facility] [address] [address] [email or web address] Health Maintenance Due Date Last Done Comments [...] this topic Medical Devices Implanted Type Area Endoscope Technician Device Identifier Shelf Expiration Date Model / [...] Recently Relevant to Health Maintenance Results * Sofia Conklin (01/19/2025 4:41 PM EDT) ALLAN IGE <0.10 <0.70 kU/L [facility]PATH SUPERIOR Comment: (NOTE) Class 0 (Negative <0.10) ADDITIONAL INFORMATION This test was developed and its performance characteristics determined by [facility] in a manner consistent with CLIA requirements. This test has not been cleared or approved by the U.S. Food and Drug Administration. Blood 01/19/2025 4:41 PM EDT 01/19/2025 4:47 PM EDT Jorge Moreno DO LAB BLOOD ORDERABLES Final R esult [facility]/PATH SUPERIOR [address] [place] [address] * Immunoglobulin E, total (01/19/2025 4:41 PM EDT) IGE 27.8 <=214 kU/L [facility] MED/PATH SUPERIOR Blood 01/19/2025 4:41 PM EDT 01/19/2025 4:47 PM EDT us Jorge Moreno DO LAB BLOOD BKR ORDERABLES Fin al Result Performing Organization Address City/[facility] Co de Phone Number [facility] LAB MED/PATH SUPERIOR [address] [place] [address] * MRI Spine (Bone) Outside (No Interpretation) (01/17/2025 12:00 AM EDT) Narrative [facility] IMG INTERFACES - 01/20/2025 1:35 PM EDT This study is for PACS storage only and not for interpretation. us Unknown Unknown IMG OUTSIDE IMAGING W/OUT INT ERPRETATION Final Result Performing Organization Address [facility]/ZIP Co de Phone Number [facility] IMG INTERFACES * Audiology Orders (01/15/2025 11:13 AM EDT) 01/15/2025 11:1 3 AM EDT us Provider Not In System PhD AUDIOLOGY SERVICES OR DERABLES Final Result Performing Organization Address City/[facility]/ZIP Co de Phone Number DR BERNAL AUD * TSH (12/24/2024 4:54 PM EDT) TSH 0.47 0.27 - 4.20 uIU/mL [facility] Blood 12/24/2024 4:54 PM EDT 12/24/2024 5:01 PM EDT us Miki Blackwood MD LAB BLOOD BKR ORDERABLES F inal Result Performing Organization Address City/[facility]/ZIP Co de Phone Number [facility] 30 [place] [address] from Last 3 Months or Most Recently Relevant to Health Maintenance Insurance [employer] PPO AETNA PPO AETNA PPO AETNA PPO AETNA PPO AET[employer] PPO [employer] PPO [place] [address] Care Teams Process Engineering Technician Relationship Specialty Start Date End Date Brett Sharma NP [address] [facility] [place] [address] PCP - General Family Medicine 08/16/21 Arturo Lawrence MD, PhD [address] [place] [address] [facility] 7B [place] [address] [email or web address] Hematology and Oncology 07/06/17 Additional Source Comments The information contained in this document represents components of the legal health record. It is not the complete legal health record.[facility]
--- OUTSIDE RECORDS SUMMARY | 2025-04-08 14:55 | XMS_ITS | Encounter Summary ---
Author Organization [facility] Address [address] [facility] [address] [place] [address] Phone Care Team Providers Care Prototype Fabricator Name Role Phone Arturo Lawrence MD, PhD Unavailable [phone] Brett Sharma NP Primary Care Provider + Encounter Details Date Type Department Care Team (Late st Contact Info) Description 11/30/2021 Procedure Pass [facility] Cardiology [address] [facility], [address] [place] [phone] Social History Tobacco Use Types Packs/Day Years [...] Description 04/13/2025 3:00 PM EST Office Visit [facility] [address] [facility], [address] [place] [address] Miki Blackwood MD [address] [place] [address] [address] [place] [address] [email or web address] 04/29/2025 10:30 AM EST Office Visit [facility] [address] [facility], 5th [place] [address] Ranjit Morley MD 15 [facility] 535 [place] [address] [email or web address] 05/18/2025 8:45 AM EST Evaluation [facility] Aud[facility] [address] [place] [address] Charissa Lew AuD 243 [place] [address] [email or web address] 05/18/2025 9:30 AM EST Office Visit [facility] Otology [facility] [address] [place] [address] Arturo Bunn MD, PhD [address] [place] [address] [email or web address] 08/27/2025 9:10 AM EDT Office Visit [facility] 70 [place] [address] Pooja Jacob MD 75 [facility] [place] [address] [email or web address] 09/24/2025 10:30 AM EDT Office Visit [facility] Cardiology Clinic [address] [facility], [address] [place] [address] Magnus Perez MD 55 [facility] [address] [place] [address] [email or web address] documented as of this encounter Visit Diagnoses Not on filedocumented in this encounter Care Teams Prototype Fabricator Relationship Specialty Start Date End Date Brett Sharma NP [address] [place] [address] PCP - General Family Medicine 08/16/21 Arturo Lawrence MD, PhD [address] [place] [address] Outpatient Care[facility] [address] [place] [address] [email or web address] Hematology and Oncology 07/06/17 documented as of this encounter Additional Source Comments The information contained in this document represents components of the legal health record. It is not the complete legal health record.[facility]
--- OUTSIDE RECORDS SUMMARY | 2025-04-08 14:55 | XMS_ITS | Encounter Summary ---
Author Organization [facility] Address [address] [address] Phone Care Team Providers Care Stem Roller Name Role Phone Pcp, Not Required Primary Care Provider Unavaila Arturo Tong MD, PhD Unavailable [phone] Rylee Zendejas ROUTE CARRIER Primary Care Provider Unknown, Unknown Primary Care Provider Rylee Sanchez ROUTE CARRIER Primary Care Provider Brett Sharma ROUTE CARRIER Primary Care Provider + Encounter Details Date Type Department Care Team (Late st Contact Info) Description 08/14/2018 Transcribe Orders [facility] Phleb Main 30 [place] [address] Arturo Lawrence MD, PhD [address] [place] [address] [address] [email or web address] Social History Tobacco Use Types [...] Description 04/13/2025 3:00 PM EST Office Visit [facility] [address] [facility], [address] [place] [address] Miki Blackwood MD 55 [facility] [address] [place] [address] [email or web address] 04/29/2025 10:30 AM EST Office Visit [facility] [address] [facility], 5th [place] [address] Ranjit Morley MD [address] [address] [email or web address] 05/18/2025 8:45 AM EST Evaluation [facility] [address] [place] [address] Charissa Lew AuD [address] [place] [address] [email or web address] 05/18/2025 9:30 AM EST Office [facility] Eye and Ear Otology Clinic [address] [place] [address] Arturo Bunn MD, PhD [address] [place] [address] [email or web address] 08/27/2025 9:10 AM EDT Office Visit [facility] 70 [place] [address] Pooja Jacob MD [address] [address] [email or web address] 09/24/2025 10:30 AM EDT Office Visit [facility] [address] [facility], [address] [place] [address] Magnus Perez MD 55 [facility] [address] [place] [address] [email or web address] documented as of this encounter Visit Diagnoses Not on filedocumented in this encounter Care Teams Stem Roller Relationship Specialty Start Date End Date Pcp, Not Required PCP - General 08/24/16 04/26/19 Rylee Zendejas, SELWYN [address] [place] [address] [email or web address] PCP - General Family Medicine 04/27/19 06/15/19 Unknown, Unknown, [address] [place] [address] PCP - General 06/16/19 06/22/19 Rylee Zendejas NP [address] [place] [address] [place] [address] [email or web address] PCP - General Family Medicine 06/23/19 08/15/21 Brett Sharma NP [address] [place] [address] [place] [address] PCP - General Family Medicine 08/16/21 Arturo Lawrence MD, PhD 55 [facility] Outpatient CareYAW [address] [place] [address] [email or web address] Hematology and Oncology 07/06/17 documented as of this encounter Additional Source Comments The information contained in this document represents components of the legal health record. It is not the complete legal health record.[facility]
--- OUTSIDE RECORDS SUMMARY | 2025-04-08 14:55 | XMS_ITS | Encounter Summary ---
Author Organization [facility] Address [address] [address] Phone Care Team Providers Care Director Pharmacy Services Name Role Phone Pcp, Not Required Primary Care Provider Unavaila Arturo Tong MD, PhD Unavailable [phone] Rylee Zendejas PUBLIC HEALTH WORKER Primary Care Provider Unknown, Unknown Primary Care Provider Rylee Sanchez PUBLIC HEALTH WORKER Primary Care Provider Brett Sharma PUBLIC HEALTH WORKER Primary Care Provider + Encounter Details Date Type Department Care Team (Late st Contact Info) Description 08/14/2018 Transcribe Orders [facility] Phleb Main 30 [place] [address] Arturo Lawrence MD, PhD [address] [place] [address] [address] [email or web address] Social History Tobacco Use [...] Description 04/13/2025 3:00 PM EST Office Visit [facility] 15 [facility], [address] [place] [address] Miki Blackwood MD 55 [facility] [address] [place] [address] KALPANA@[email or web address] 04/29/2025 10:30 AM EST Office Visit [facility] 55 [facility], 5th [place] [address] Ranjit Morley MD [address] [address] MARCELA@[facility] 05/18/2025 8:45 AM EST Evaluation [facility] [address] [place] [address] Charissa Lew AuD [address] [place] [address] Amanda@[facility] 05/18/2025 9:30 AM EST Office Visit [facility] [address] [place] [address] Arturo Bunn MD, PhD [address] [place] [address] [email or web address] 08/27/2025 9:10 AM EDT Office Visit [facility] 70 [place] [address] Pooja Jacob MD [address] [address] [email or web address]@[email or web address] 09/24/2025 10:30 AM EDT Office Visit [facility] [address] [facility], [address] [place] [address] Magnus Perez MD 55 [facility] [address] [place] [address] [email or web address] documented as of this encounter Visit Diagnoses Not on filedocumented in this encounter Care Teams Director Pharmacy Services Relationship Specialty Start Date End Date Pcp, Not Required PCP - General 08/24/16 04/26/19 Rylee Zendejas, SELWYN [address] [place] [address] [email or web address] [facility] PCP - General Family Medicine 04/27/19 06/15/19 Unknown, Unknown, [address] [place] [address] PCP - General 06/16/19 06/22/19 Rylee Zendejas NP [address] [place] [address] [place] [address] [email or web address] [facility] PCP - General Family Medicine 06/23/19 08/15/21 Brett Sharma NP [address] [place] [address] [place] [address] PCP - General Family Medicine 08/16/21 Arturo Lawrence MD, PhD 55 [facility] Outpatient CareYAW [address] [place] [address] AURELIA@[email or web address].[facility] Hematology and Oncology 07/06/17 documented as of this encounter Additional Source Comments The information contained in this document represents components of the legal health record. It is not the complete legal health record.[facility]
--- OUTSIDE RECORDS SUMMARY | 2025-04-08 14:55 | XMS_ITS | Encounter Summary ---
Author Organization [facility] Address [address] [address] Phone Care Team Providers Care Tank Farm Gauger Name Role Phone Pcp, Not Required Primary Care Provider Unavaila Arturo Tong MD, PhD Unavailable [phone] Rylee Zendejas NAVAL AIRCREWMAN TACTICAL HELICOPTER Primary Care Provider Unknown, Unknown Primary Care Provider Rylee Sanchez NAVAL AIRCREWMAN TACTICAL HELICOPTER Primary Care Provider Brett Sharma NAVAL AIRCREWMAN TACTICAL HELICOPTER Primary Care Provider + Encounter Details Date Type Department Care Team (Late st Contact Info) Description 04/07/2019 Transcribe Orders [facility] Phleb Main 30 [place] [address] Arturo Lawrence MD, PhD [address] [place] [address] [address] [email or web address] Pigment cirrhosis (Primary Dx) Social History [...] Description 04/13/2025 3:00 PM EST Office Visit [facility] 15 [facility], [address] [place] [address] Miki Blackwood MD 55 [facility] [address] [place] [address] KALPANA@[email or web address] 04/29/2025 10:30 AM EST Office Visit [facility] 55 [facility], 5th [place] [address] Ranjit Morley MD [address] [address] [email or web address] 05/18/2025 8:45 AM EST Evaluation [facility] [address] [place] [address] Charissa Lew AuD [address] [place] [address] [email or web address] 05/18/2025 9:30 AM EST Office Visit [facility] [address] [place] [address] Arturo Bunn MD, PhD [address] [place] [address] [email or web address] 08/27/2025 9:10 AM EDT Office Visit [facility] 70 [place] [address] Pooja Jacob MD [address] [address] [email or web address]@[facility] 09/24/2025 10:30 AM EDT Office Visit [facility] 52 [facility], [address] [place] [address] Magnus Perez MD [address] [facility] [address] Y[address] [place] [address] [email or web address] documented as of this encounter Results * Ferritin (04/07/2019 9:28 AM EST) FERRITIN 22 13 - 150 ug/L [facility] Blood 04/07/2019 9:28 AM EST 04/07/2019 9:30 AM EST us Arturo Lawrence MD, PhD LAB BLOOD BKR ORDERABL ES Final Result Performing Organization Address [facility] de Phone Number [address] [address] * Iron and iron binding capacity (04/07/2019 9:28 AM EST) IRON 67 30 - 160 ug/dL [facility] IRON BINDING CAPACITY 230 228 - 428 ug/dL [facility] TRANSFERRIN SATURAT. 29 15 - 50 % [facility] Blood 04/07/2019 9:28 AM EST 04/07/2019 9:30 AM EST Arturo Lawrence MD, PhD LAB BLOOD BKR ORDERABL ES Final Result Performing Organization Address City/[facility]/ZIP Co de Phone Number [address] [address] documented in this encounter Visit Diagnoses Diagnosis Pigment cirrhosis- Primary Disorders of iron metabolism documented in this encounter Care Teams Tank Farm Gauger Relationship Specialty Start Date End Date Pcp, Not Required PCP - General 08/24/16 04/26/19 Rylee Zendejas NP [address] [place] [address] [email or web address] PCP - General Family Medicine 04/27/19 06/15/19 Unknown, Cesario, [address] [place] [address] PCP - General 06/16/19 06/22/19 Rylee Zendejas, NAVAL AIRCREWMAN TACTICAL HELICOPTER [address] [place] [address] [place] [address] [email or web address] PCP - General Family Medicine 06/23/19 08/15/21 Brett Sharma, SELWYN [address] [place] [address] [place] [address] PCP - General Family Medicine 08/16/21 Arturo Lawrence MD, PhD [address] [place] [address] [facility] [address] [place] [address] [email or web address] Hematology and Oncology 07/06/17 documented as of this encounter Additional Source Comments The information contained in this document represents components of the legal health record. It is not the complete legal health record.[facility]
--- OUTSIDE RECORDS SUMMARY | 2025-04-08 14:55 | XMS_ITS | Encounter Summary ---
Author Organization [facility] Address [address] [place] [address] Phone Care Team Providers Care Mounter Sousaphones Name Role Phone Arturo Lawrence MD, PhD Unavailable [phone] Brett Sharma NP Primary Care Provider + Encounter Details Date Type Department Care Team (Late st Contact Info) Description 10/04/2023 Procedure Pass [facility] Cardiology Echo [facility] [address] [facility], [address] [place] [id number] Social History Tobacco Use Types Packs/Day Years [...] Description 04/13/2025 3:00 PM EST Office Visit [facility] 15 [facility], [address] [place] [address] Miki Blackwood MD 55 [facility] [address] [place] [address] KALPANA@[email or web address] 04/29/2025 10:30 AM EST Office Visit [facility] 55 [facility], 5th [place] [address] Ranjit Morley MD 15 [facility] 535 [place] [address] MARCELA@[email or web address] 05/18/2025 8:45 AM EST Evaluation [facility] [address] [place] [address] Charissa Lew AuD [address] [place] [address] Amanda@[facility] 05/18/2025 9:30 AM EST Office Visit [facility] [address] [place] [address] Arturo Bunn MD, PhD [address] [place] [address] [email or web address] 08/27/2025 9:10 AM EDT Office Visit [facility] 70 [place] [address] Pooja Jacob MD [address] [address] NINI@[email or web address] 09/24/2025 10:30 AM EDT Office Visit [facility] [address] [facility], [address] [place] [address] Magnus Perez MD 55 [facility] [address] [place] [address] [email or web address] documented as of this encounter Visit Diagnoses Not on filedocumented in this encounter Care Teams Mounter Sousaphones Relationship Specialty Start Date End Date Brett Sharma, SELWYN [address] [place] [address] PCP - General Family Medicine 08/16/21 Arturo Lawrence MD, PhD [address] [place] [address] Outpatient CareYAW [address] [place] [address] AURELIA@[email or web address].[place].[email or web address] Hematology and Oncology 07/06/17 documented as of this encounter Additional Source Comments The information contained in this document represents components of the legal health record. It is not the complete legal health record.[facility]
--- OUTSIDE RECORDS SUMMARY | 2025-04-08 14:56 | XMS_ITS | Encounter Summary ---
Author Organization [facility] Address [address] [place] [address] Phone Care Team Providers Care Water Leak Repairer Name Role Phone Arturo Lawrence MD, PhD Unavailable [phone] Brett Sharma NP Primary Care Provider + Encounter Details Date Type Department Care Team (Late st Contact Info) Description 06/21/2023 Procedure Pass [facility] Cardiology [address] [facility], [address] [place] [phone] Social History Tobacco Use Types Packs/Day Years [...] Description 04/13/2025 3:00 PM EST Office Visit [facility] Thyroid [facility] [address] [facility], [address] [place] [address] Miki Blackwood MD 55 [facility] [address] [place] [address] [email or web address] 04/29/2025 10:30 AM EST Office Visit [facility] 55 [facility], 5th [place] [address] Ranjit Morley MD 15 [facility] 535 [place] [address] MARCELA@[facility] 05/18/2025 8:45 AM EST Evaluation [facility] [address] [place] [address] Charissa Lew AuD [address] [place] [address] [email or web address] 05/18/2025 9:30 AM EST Office Visit [facility] [address] [place] [address] Arturo Bunn MD, PhD [address] [place] [address] [email or web address] 08/27/2025 9:10 AM EDT Office Visit [facility] 70 [place] [address] Pooja Jacob MD [address] [address] NINI@[facility] 09/24/2025 10:30 AM EDT Office Visit [facility] [address] [facility], [address] [place] [address] Magnus Perez MD 55 [facility] [address] [place] [address] [email or web address] documented as of this encounter Visit Diagnoses Not on filedocumented in this encounter Care Teams Water Leak Repairer Relationship Specialty Start Date End Date Brett Sharma NP [address] [facility] [place] [address] PCP - General Family Medicine 08/16/21 Arturo Lawrence MD, PhD 55 [facility] Outpatient CareYAW [address] [place] [address] AURELIA@[email or web address] Hematology and Oncology 07/06/17 documented as of this encounter Additional Source Comments The information contained in this document represents components of the legal health record. It is not the complete legal health record.[facility]
--- OUTSIDE RECORDS SUMMARY | 2025-04-08 14:56 | XMS_ITS | Encounter Summary ---
Author Organization [facility] Address [address] [address] Phone Care Team Providers Care Hand Coke Drawer Name Role Phone Pcp, Not Required Primary Care Provider Arturo Castillo MD, PhD Unavailable [phone] Rylee Zendejas INDUSTRIAL MACHINERY MECHANIC Primary Care Provider Unknown, Unknown Primary Care Provider Rylee Sanchez INDUSTRIAL MACHINERY MECHANIC Primary Care Provider Brett Sharma INDUSTRIAL MACHINERY MECHANIC Primary Care Provider + Reason for Referral * Consultation (Elective) - Closed Specialty Diagnoses / Procedures Referred By Contact Referred To Contact Pediatric Gastroenterology Diagnoses Non-celiac gluten sensitivity System, Provider Not In, PhD [address] [address] Referral ID Status Reason Start Date Expiration Date Visits Re quested Visits Authorized [id number] Closed 08/24/2016 08/24/2017 1 1 Encounter Details Date Type Department Care Team (Late st Contact Info) Description 08/24/2016 Transcribe Orders [facility] [address] [place] [address] Pcp, Not Required Non-celiac gluten sensitivity (Primary [...] Description 04/13/2025 3:00 PM EST Office Visit [facility] Thyroid [facility] 15 [facility], [address] [place] [address] Miki Blackwood MD [address] [facility] [address] [place] [address] [email or web address] 04/29/2025 10:30 AM EST Office Visit [facility] 55 [facility], 5th [place] [address] Ranjit Morley MD [address] [address] [email or web address] 05/18/2025 8:45 AM EST Evaluation [facility] [address] [place] [address] Charissa Lew AuD [address] [place] [address] Amanda@[email or web address] 05/18/2025 9:30 AM EST [facility] [address] [place] [address] Arturo Bunn MD, PhD [address] [place] [address] Xin@[email or web address] 08/27/2025 9:10 AM EDT Office Visit [facility] 70 [place] [address] Pooja Jacob MD [address] [place] [address] [place] [address] NINI@[facility] 09/24/2025 10:30 AM EDT Office Visit [facility] Cardiology [facility] 52 [facility], [address] [place] [address] Magnus Perez MD [address] [address] [email or web address] Scheduled Referrals Name Type Priority Associated Diagnoses Orde r Schedule Ambulatory referral to [facility] Pediatric GI/Nutrition Outpatient Referral Routine Non-celiac gluten sensitivity Ordered: 08/24/2016 documented as of this encounter Visit Diagnoses Diagnosis Non-celiac gluten sensitivity- Primary Intestinal malabsorption, unspecified type documented in this encounter Care Teams Hand Coke Drawer Relationship Specialty Start Date End Date Pcp, Not Required PCP - General 08/24/16 04/26/19 Rylee Zendejas NP [address] [place] [address] [email or web address] PCP - General Family Medicine 04/27/19 06/15/19 Unknown, Cesario, [address] [place] [address] PCP - General 06/16/19 06/22/19 Rylee Zendejas NP [address] [place] [address] [place] [address] [email or web address] PCP - General Family Medicine 06/23/19 08/15/21 Brett Sharma NP [address] [place] [address] [place] [address] PCP - General Family Medicine 08/16/21 Arturo Lawrence MD, PhD 55 [facility] Outpatient CareYAW [address] [place] [address] [email or web address] Hematology and Oncology 07/06/17 documented as of this encounter Additional Source Comments The information contained in this document represents components of the legal health record. It is not the complete legal health record.[facility]
--- OUTSIDE RECORDS SUMMARY | 2025-04-08 14:56 | XMS_ITS | Encounter Summary ---
Author Organization [facility] Address 399 [facility] [address] [place] [address] Phone Care Team Providers Care Appraiser Real Estate Name Role Phone Arturo Lawrence MD, PhD Unavailable [phone] Brett Sharma NP Primary Care Provider + Encounter Details Date Type Department Care Team (Late st Contact Info) Description 02/12/2023 Procedure Pass [facility] PERIOPERATIVE DEPT [address] [place], [place] [phone] Social History Tobacco Use Types Packs/Day Years [...] Description 04/13/2025 3:00 PM EST Office Visit [facility] 15 [facility], [address] [place] [address] Miki Blackwood MD 55 [facility] [address] [place] [address] KALPANA@[facility] 04/29/2025 10:30 AM EST Office Visit [facility] 55 [facility], 5th [place] [address] Ranjit Morley MD 15 [facility] 535 [place] [address] MARCELA@[facility] 05/18/2025 8:45 AM EST Evaluation [facility] [address] [place] [address] Charissa Lew AuD [address] [place] [address] Amanda@[facility] 05/18/2025 9:30 AM EST Office Visit [facility] [address] [place] [address] Arturo Bunn MD, PhD [address] [place] [address] [email or web address] 08/27/2025 9:10 AM EDT Office [facility] 70 [place] [address] Pooja Jacob MD [address] [address] NINI@[facility] 09/24/2025 10:30 AM EDT Office Visit [facility] [address] [facility], [address] [place] [address] Magnus Perez MD 55 [facility] 5[address] [place] [address] [email or web address] documented as of this encounter Visit Diagnoses Not on filedocumented in this encounter Care Teams Appraiser Real Estate Relationship Specialty Start Date End Date Brett Sharma NP [address] [place] [address] PCP - General Family Medicine 08/16/21 Arturo Lawrence MD, PhD 55 [facility] Outpatient CareYAW [address] [place] [address] AURELIA@[email or web address] Hematology and Oncology 07/06/17 documented as of this encounter Additional Source Comments The information contained in this document represents components of the legal health record. It is not the complete legal health record.[facility]
== END 2025-04-08 12:35 | disposition home or self-care (01) ==
LOC: HO.HMCC 11:22
PROVIDERS: PCP Nurse Practitioner Family; Visit Provider Nurse Practitioner Family
DX: J45.909 Unspecified asthma, uncomplicated (principal); J21.0 Acute bronchiolitis due to respiratory syncytial virus; R13.10 Dysphagia, unspecified

== ENCOUNTER → 2025-04-08 11:21 | Outpatient (BNVA) | payer OTHER, SELFPAY | PROVIDERS: PCP Nurse Practitioner Family; Visit Provider Nurse Practitioner Family | DX: J21.0 Acute bronchiolitis due to respiratory syncytial virus (principal); J45.901 Unspecified asthma with (acute) exacerbation; R13.10 Dysphagia, unspecified | CPT/HCPCS: 96127 ==

== ENCOUNTER 2025-04-14 22:11 | Emergency (ER) | payer OTHER, SELFPAY ==
--- OUTSIDE RECORDS SUMMARY | 2024-09-08 03:20 | XMS_ITS ---
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 B arrett esophagus - K22.70 (Primary) Plan: * Procedure Codes: 4 3239 UPPER GI ENDOSCOPY, BIOPSY Billing Information: * Procedure Codes: 61234 UPPER GI ENDOSCOPY, BIOPSY. * The named appointment provid er may or may not be the originator of this progress note, and it is not deemed complete until electronically signed by the appointment provider. Sign off status: Pending * Provider: Ulices Pike MD Date: 0 09/08/2024 Generated for Chitra ordaz/Consuelo/Oscar on: 1 06/15/2024 10:49 PM EST
--- NOTE | 2025-04-14 | ECG_ITS ---
Test Reason : CP Blood Pressure : */* mmHG Vent. Rate : 88 BPM Atrial Rate : 88 BPM P-R Int : 174 ms QRS Dur : 90 ms QT Int : 340 ms P-R-T Axes : 40 -48 19 degrees QTcB Int : 411 ms Normal sinus rhythm Low voltage QRS Left anterior fascicular block Inferior infarct (cited on or before 04-Apr-2025) Cannot rule out Anterior infarct , age undetermined Abnormal ECG When compared with ECG of 04-Apr-2025 13:48, No significant change was found Referred By: Generic ED Physician Electronically Signed By: VINNIE TOMLIN MD
--- NOTE | ~2025-04-14 | XR_ITS ---
CLINICAL HISTORY: cp 2 view chest x-ray Comparison: Chest x-ray 04/04/2025 Findings: No consolidation or effusion. Heart size is normal. No acute fracture. IMPRESSION: 1. No acute findings. This document has been electronically signed by: Jeni Campuzano MD on 04/15/2025 00:41:32
--- NOTE | ~2025-04-14 | US_ITS ---
CLINICAL HISTORY: pain Venous duplex ultrasound left lower extremity Comparison: None provided Findings: The visualized deep veins are fully compressible with normal Doppler color flow and spectral tracings. No popliteal cyst. IMPRESSION: 1. Negative for left lower extremity deep vein thrombosis. This document has been electronically signed by: Jeni Campuzano MD on 04/15/2025 01:28:34
[2025-04-14 22:23] VITALS: BP 104/66; PULSE 88; RESP 18; TEMP 36.8; O2SAT 99; BMI 23.9
[2025-04-14 22:43] LABS: MANUAL DIFF FLAG NO
[2025-04-14 22:44] LABS: Hematocrit 40.3 % (37.0-47.0); Hemoglobin 13.9 g/dl (12.0-16.0); Imm Gran Abs Auto 0.09 X10*3/uL (0.00-0.03); Imm Gran Pct Auto 0.9 % (0.0-0.4); Lymphocytes Absolute Auto 2.3 X10*3/uL (1.2-4.9); Mean Corpuscular HGB Conc 34.5 g/dl (31.0-35.0); Mean Corpuscular Hemoglobin 31.1 pg (27.0-33.0); Mean Corpuscular Volume 90.2 fL (80.0-98.0); NRBC Abs Auto 0.000 X10*3/uL (0.0-0.012); NRBC Pct Auto 0.0 /100WBC (0.0-0.2); Platelet Count 321 X10*3/uL (160-400); Red Blood Count 4.47 X10*6/uL (4.20-5.50); White Blood Count 9.8 X10*3/uL (4.8-10.8)
--- OUTSIDE RECORDS SUMMARY | 2025-04-14 22:48 | XMS_ITS | Encounter Summary ---
Author Organization [facility] Address [address] [place] [address] Care Team Providers Care Analytical Chemistry Teacher Name Role Phone Brett Sharma NP Primary Care Provider + [phone] Isis Young RN Unavailable [phone] Tip Campos MD Unavailable Magnus Perez MD Unavailable [phone] System, Provider Not In Unavailable Unavaila Miki Diana MD Unavailable [phone] Raúl Pike MD Unavailable [phone] Jorge Moreno DO Unavailable [phone] Arturo Bunn MD Unavailable Leatha Mc Unavailable [phone] Encounter Details Date Type Department Care Team (Late st Contact Info) Description 03/19/2025 Scanned Document [facility] Neurosurgery [address] [address] Tip Campos MD [address] [place] [address] Social History Tobacco Use Types Packs/Day [...] any time in the past [address] [facility], were you homeless or living in a assisted (including now)? No 02/05/2025 [facility] Utilities Answer Date Recorded [...] 04/26/2025 1:00 PM EST Office Visit [facility] Plastic & Reconstructive Surgery [address] [place] [address] Clyde Martin PA 399 [facility] 210 [place] [address] 06/01/2025 10:00 AM EST Office Visit [facility] Neurosurgery [place] [address] [phone] Samara Mendoza PA-C [address] [address] documented as of this encounter Goals Goal Patient Goal Type Associated Problems Recent Progress Patient-Stated? Author ST LTG 1 Speech Therapy No Zeina Messer CCC-GEOTECHNICAL FIELD TECHNICIAN Note: Pt will tolerate least restrictive diet without s/s aspiration. ST STG 1 Speech Therapy No Zeina Messer CCC-GEOTECHNICAL FIELD TECHNICIAN Note: Pt will complete an instrumental swallowing evaluation within 2 weeks. Additional goals to be set as indicated. documented as of this encounter Visit Diagnoses Not on filedocumented in this encounter Care Teams Analytical Chemistry Teacher Relationship Specialty Start Date End Date Brett Sharma NP 262 [place] [address] PCP - General Family Medicine 03/03/24 Isis Young RN 80 [place] [address] Nurse Navigator Surgery, Neurosurgery 01/25/25 Tip Campos MD [address] [place] [address] Surgery, Neurosurgery 02/01/25 Magnus Perez MD [address] [place] [phone] Cardiovascular Disease 02/01/25 System, Provider Not In [address] [place] [phone] Hematology Oncology 02/01/25 Miki Blackwood MD 15 [place] [address] Endocrinology 02/01/25 Raúl Pike MD [address] [place] [address] Gastroenterology 02/01/25 Jorge Moreno DO 269 [facility] 201 [place] [address] Immunology 02/01/25 Arturo Bunn MD [address] [place] [address] Otolaryngology 02/01/25 Leatha Mc PA [address] [place] [address] [place] [address] Physician Portable Irrigation Operator Surgery, Neurosurgery 02/05/25 documented as of this encounter
--- OUTSIDE RECORDS SUMMARY | 2025-04-14 22:48 | XMS_ITS | Encounter Summary ---
Author Organization [facility] Address [address] [place] [address] Care Team Providers Care Information Systems Security Officer Name Role Phone Brett Sharma NP Primary Care Provider + [phone] Isis Young RN Unavailable [phone] Tip Campos MD Unavailable [phone] Magnus Perez MD Unavailable [phone] System, Provider Not In Unavailable Unavaila Miki Diana MD Unavailable [phone] Raúl Pkie MD Unavailable Jorge Moreno DO Unavailable [phone] Arturo Bunn MD Unavailable Leatha Mc Unavailable [phone] Encounter Details Date Type Department Care Team (Late st Contact Info) Description 03/25/2025 Scanned Document [facility] Neurosurgery [place] 85 [facility] [address] [place] [address] Samara Mendoza PA-C 85 [facility] Joshua [address] [place] [address] Social History Tobacco Use Types Packs/Day [...] any time in the past 12 m [facility], were you homeless or living in a care home (including now)? No 02/05/2025 [facility] Utilities Answer Date Recorded In the [...] [facility] [address] [place] [address] Clyde Martin PA 399 [facility] 210 [place] [address] 06/01/2025 10:00 AM EST Office Visit [facility] Neurosurgery [place] [address] [phone] Samara Mendoza PA-C [address] [address] documented as of this encounter Goals Goal Patient Goal Type Associated Problems Recent Progress Patient-Stated? Author ST LTG 1 Speech Therapy No Zeina Messer CCC-CLUB CAR ATTENDANT Note: Pt will tolerate least restrictive diet without s/s aspiration. ST STG 1 Speech Therapy No Zeina Messer CCC-CLUB CAR ATTENDANT Note: Pt will complete an instrumental swallowing evaluation within 2 weeks. Additional goals to be set as indicated. documented as of this encounter Visit Diagnoses Not on filedocumented in this encounter Care Teams Information Systems Security Officer Relationship Specialty Start Date End Date Brett Sharma NP 262 [place] [address] PCP - General Family Medicine 03/03/24 Isis Young RN 80 [place] [address] Nurse Navigator Surgery, Neurosurgery 01/25/25 Tip Campos MD [address] [place] [address] Surgery, Neurosurgery 02/01/25 Magnus Perez MD [address] [place] [phone] Cardiovascular Disease 02/01/25 System, Provider Not In [address] [place] [address] Hematology Oncology 02/01/25 Miki Blackwood MD 15 [place] [address] Endocrinology 02/01/25 Raúl Pike MD [address] [place] [address] Gastroenterology 02/01/25 Jorge Moreno DO 269 [facility] 201 [place] [address] Immunology 02/01/25 Arturo Bunn MD [address] [place] [address] Otolaryngology 02/01/25 Leatha Mc PA [address] [place] [address] [place] [address] Physician Granulating Machine Operator Surgery, Neurosurgery 02/05/25 documented as of this encounter
--- OUTSIDE RECORDS SUMMARY | 2025-04-14 22:48 | XMS_ITS | Encounter Summary ---
Author Organization [facility] Address [address] [place] [address] Care Team Providers Care Hide Puller Name Role Phone Brett Sharma NP Primary Care Provider + [phone] Isis Young RN Unavailable [phone] Tip Campos MD Unavailable [phone] Magnus Perez MD Unavailable [phone] System, Provider Not In Unavailable Unavaila Miki Diana MD Unavailable [phone] Raúl Pike MD Unavailable [phone] Jorge Moreno DO Unavailable Arturo Bunn MD Unavailable Leatha Mc Unavailable [phone] Encounter Details Date Type Department Care Team (Late st Contact Info) Description 02/03/2025 Scanned Document [facility] Neurosurgery [place] 85 [facility] [address] [place] [address] Samara Mendoza PA-C 85 [facility] Joshua [address] [place] [address] Social History Tobacco Use Types Packs/Day [...] time in the past 12 m [facility], were you homeless or living in a nursing home (including now)? No 02/05/2025 [facility] Utilities Answer Date Recorded In the past [...] Not at all 02/05/2025 6:49 AM EDT Lsia Anaya RN Feeling down, depressed, or hopeless [...] Description 04/26/2025 1:00 PM EST Office Visit [facility] Plastic & Reconstructive Surgery [place] 399 [facility] 210 [place] [address] Clyde Martin PA [address] [place] [address] 06/01/2025 10:00 AM EST Office Visit [facility] Neurosurgery [place] 85 [facility] 1003 [place] [phone] Samara Mendoza PA-C 85 [facility] [address] [place] [phone] documented as of this encounter Visit Diagnoses Not on filedocumented in this encounter Care Teams Hide Puller Relationship Specialty Start Date End Date Brett Sharma NP [address] [place] [address] PCP - General Family Medicine 03/03/24 Isis Young RN 80 [place] [address] Nurse Navigator Surgery, Neurosurgery 01/25/25 Tip Campos MD 85 [facility] 1003 [place] [address] Surgery, Neurosurgery 02/01/25 Magnus Perez MD [address] [place] [phone] Cardiovascular Disease 02/01/25 System, Provider Not In [address] [place] [phone] Hematology Oncology 02/01/25 Miki Blackwood MD [address] [place] [address] Endocrinology 02/01/25 Raúl Pike MD [address] [place] [address] Gastroenterology 02/01/25 Jorge Moreno DO [address] [place] [address] 201 [place] [address] Immunology 02/01/25 Arturo Bunn MD [address] [place] [address] Otolaryngology 02/01/25 Leatha Mc PA 85 [facility] 1003 [place] [address] Physician Litigation Paralegal Surgery, Neurosurgery 02/05/25 documented as of this encounter
--- OUTSIDE RECORDS SUMMARY | 2025-04-14 22:49 | XMS_ITS | Encounter Summary ---
Author Organization [facility] Address [address] [place] [address] Care Team Providers Care Group Exercise Class Instructor Name Role Phone Brett Sharma NP Primary Care Provider + [phone] Isis Young RN Unavailable Tip Campos MD Unavailable Magnus Perez MD Unavailable System, Provider Not In Unavailable Unavaila Miki Diana MD Unavailable [phone] Raúl Pike MD Unavailable Jorge Moreno DO Unavailable [phone] Arturo Bunn MD Unavailable Leatha Mc Unavailable [phone] Encounter Details Date Type Department Care Team (Late st Contact Info) Description 04/21/[address] [facility] Plastic & Reconstructive Surgery [address] [place] [address] Mary Solomon LPN [address] [address] Social History Tobacco Use Types Packs/Day Years [...] Description 04/26/2025 1:00 PM EST Office Visit [facility] Plastic & Reconstructive Surgery [place] [address] [address] Clyde Martin PA [address] [address] 06/01/2025 10:00 AM EST Office Visit [facility] Neurosurgery [place] [address] [phone] Samara Mendoza PA-C [address] [phone] documented as of this encounter Visit Diagnoses Not on filedocumented in this encounter Care Teams Group Exercise Class Instructor Relationship Specialty Start Date End Date Brett Sharma NP [address] [place] [address] PCP - General Family Medicine 03/03/24 Isis Young RN 80 [place] [address] Nurse Navigator Surgery, Neurosurgery 01/25/25 Tip Campos MD [address] [address] Surgery, Neurosurgery 02/01/25 Magnus Perez MD [address] [place] [phone] Cardiovascular Disease 02/01/25 System, Provider Not In [address] [place] [address] Hematology Oncology 02/01/25 Miki Blackwood MD [address] [place] [address] Endocrinology 02/01/25 Raúl Pike MD [address] [place] [address] Gastroenterology 02/01/25 Jorge Moreno DO 269 [facility] 201 [place] [address] Immunology 02/01/25 Arturo Bunn MD [address] [place] [address] Otolaryngology 02/01/25 Leatha Mc PA [address] [place] [address] Physician Drilling Supervisor Surgery, Neurosurgery 02/05/25 documented as of this encounter
--- OUTSIDE RECORDS SUMMARY | 2025-04-14 22:49 | XMS_ITS | Encounter Summary ---
Author Organization [facility] Address [address] [place] [address] Care Team Providers Care Duck Operator Name Role Phone Brett Sharma NP Primary Care Provider + [phone] Isis Young RN Unavailable [phone] Tip Campos MD Unavailable [phone] Magnus Perez MD Unavailable [phone] System, Provider Not In Unavailable Unavaila Miki Diana MD Unavailable [phone] Raúl Pike MD Unavailable [phone] Jorge Moreno DO Unavailable [phone] Arturo Bunn MD Unavailable Leatha Mc Unavailable [phone] Encounter Details Date Type Department Care Team (Late st Contact Info) Description 03/04/2024 Scanned Document [facility] Plastic & Reconstructive Surgery [address] [place] [address] Michael Long MD [address] [place] [address] 210 [place] [address] Social History Tobacco Use Types Packs/Day Years [...] PM EST Office Visit [facility] Plastic & Reconstructive Surgery [place] [address] [address] Clyde Martin PA [address] [place] [address] 06/01/2025 10:00 AM EST Office Visit [facility] Neurosurgery [place] [address] [phone] Samara Mendoza PA-C [address] [phone] documented as of this encounter Visit Diagnoses Not on filedocumented in this encounter Care Teams Duck Operator Relationship Specialty Start Date End Date Brett Sharma NP [address] [place] [address] PCP - General Family Medicine 03/03/24 Isis Young RN 80 [place] [address] Nurse Navigator Surgery, Neurosurgery 01/25/25 Tip Campos MD [address] [place] [address] [place] [address] Surgery, Neurosurgery 02/01/25 Magnus Perez MD [address] [place] [phone] Cardiovascular Disease 02/01/25 System, Provider Not In [address] [place] [phone] Hematology Oncology 02/01/25 Miki Blackwood MD [address] [place] [address] Endocrinology 02/01/25 Raúl Pike MD [address] [place] [address] Gastroenterology 02/01/25 Jorge Moreno DO 269 [facility] 201 [place] [address] Immunology 02/01/25 Arturo Bunn MD [address] [place] [address] Otolaryngology 02/01/25 Leatha Mc PA 85 [facility] [address] [place] [address] Physician Pearl Fisherman Surgery, Neurosurgery 02/05/25 documented as of this encounter
--- OUTSIDE RECORDS SUMMARY | 2025-04-14 22:49 | XMS_ITS | Encounter Summary ---
Author Organization [facility] Address [address] [place] [address] Care Team Providers Care Data Warehousing Engineer Name Role Phone Brett Sharma NP Primary Care Provider + [phone] Isis Young RN Unavailable Tip Campos MD Unavailable [phone] Magnus Perez MD Unavailable [phone] System, Provider Not In Unavailable Unavaila Miki Diana MD Unavailable [phone] Raúl Pike MD Unavailable [phone] Jorge Moreno DO Unavailable [phone] Arturo Bunn MD Unavailable Leatha Mc Unavailable [phone] Encounter Details Date Type Department Care Team (Late st Contact Info) Description 03/09/2025 Scanned Document [facility] Neurosurgery [address] [address] Leatha Mc PA [address] [address] Social History Tobacco Use Types [...] in a alf (including now)? No 02/05/2025 [facility] Utilities Answer Date Recorded In the [...] 04/26/2025 1:00 PM EST Office Visit [facility] Plastic & Reconstructive Surgery [address] [place] [address] Clyde Martin PA 399 [facility] 210 [place] [address] 06/01/2025 10:00 AM EST Office Visit [facility] Neurosurgery [place] [address] [phone] Samara Mendoza PA-C [address] [address] documented as of this encounter Goals Goal Patient Goal Type Associated Problems Recent Progress Patient-Stated? Author ST LTG 1 Speech Therapy No Zeina Messer CCC-AUTO TRANSMISSION TECHNICIAN Note: Pt will tolerate least restrictive diet without s/s aspiration. ST STG 1 Speech Therapy No Zeina Messer CCC-AUTO TRANSMISSION TECHNICIAN Note: Pt will complete an instrumental swallowing evaluation within 2 weeks. Additional goals to be set as indicated. documented as of this encounter Visit Diagnoses Not on filedocumented in this encounter Care Teams Data Warehousing Engineer Relationship Specialty Start Date End Date Brett Sharma NP 262 [place] [address] PCP - General Family Medicine 03/03/24 Isis Young RN 80 [place] [address] Nurse Navigator Surgery, Neurosurgery 01/25/25 Tip Campos MD [address] [place] [address] Surgery, Neurosurgery 02/01/25 Magnus Perez MD [address] [place] [phone] Cardiovascular Disease 02/01/25 System, Provider Not In [address] [place] [phone] Hematology Oncology 02/01/25 Miki Blackwood MD 15 [place] [address] Endocrinology 02/01/25 Raúl Pike MD [address] [place] [address] Gastroenterology 02/01/25 Jorge Moreno DO 269 [facility] 201 [place] [address] Immunology 02/01/25 Arturo Bunn MD [address] [place] [address] Otolaryngology 02/01/25 Leatha Mc PA [address] [place] [address] [place] [address] Physician Grass Farmer Surgery, Neurosurgery 02/05/25 documented as of this encounter
--- OUTSIDE RECORDS SUMMARY | 2025-04-14 22:49 | XMS_ITS | Encounter Summary ---
Author Organization [facility] Address [address] [place] [address] Care Team Providers Care Life Management Teacher Name Role Phone Brett Sharma NP Primary Care Provider + [phone] Isis Young RN Unavailable Tip Campos MD Unavailable [phone] Magnus Perez MD Unavailable [phone] System, Provider Not In Unavailable Unavaila Miki Diana MD Unavailable [phone] Raúl Pike MD Unavailable Jorge Moreno DO Unavailable [phone] Arturo Bunn MD Unavailable Leatha Mc Unavailable [phone] Encounter Details Date Type Department Care Team (Late st Contact Info) Description 02/24/2025 Scanned Document [facility] Neurosurgery [address] [address] Tip Campos MD [address] [place] [address] Social History Tobacco Use Types Packs/Day [...] any time in the past 12 m [facility], were you homeless or living in a long term (including now)? No 02/05/2025 [facility] Utilities Answer Date Recorded In the [...] Description 04/26/2025 1:00 PM EST Office Visit [facility] Plastic & Reconstructive Surgery [address] [place] [address] Clyde Martin PA 399 [facility] 210 [place] [address] 06/01/2025 10:00 AM EST Office Visit [facility] Neurosurgery [place] [address] [phone] Samara Mendoza PA-C [address] [address] documented as of this encounter Goals Goal Patient Goal Type Associated Problems Recent Progress Patient-Stated? Author ST LTG 1 Speech Therapy No Zeina Messer CCC-INSURANCE LICENSING SUPERVISOR Note: Pt will tolerate least restrictive diet without s/s aspiration. ST STG 1 Speech Therapy No Zeina Messer CCC-INSURANCE LICENSING SUPERVISOR Note: Pt will complete an instrumental swallowing evaluation within 2 weeks. Additional goals to be set as indicated. documented as of this encounter Visit Diagnoses Not on filedocumented in this encounter Care Teams Life Management Teacher Relationship Specialty Start Date End Date Brett Sharma NP 262 [place] [address] PCP - General Family Medicine 03/03/24 Isis Young RN 80 [place] [address] Nurse Navigator Surgery, Neurosurgery 01/25/25 Tip Campos MD [address] [place] [address] Surgery, Neurosurgery 02/01/25 Magnus Perez MD [address] [place] [phone] Cardiovascular Disease 02/01/25 System, Provider Not In [address] [place] [phone] Hematology Oncology 02/01/25 Miki Blackwood MD 15 [place] [address] Endocrinology 02/01/25 Raúl Pike MD [address] [place] [address] Gastroenterology 02/01/25 Jorge Moreno DO 269 [facility] 201 [place] [address] Immunology 02/01/25 Arturo Bunn MD [address] [place] [address] Otolaryngology 02/01/25 Leatha Mc PA [address] [place] [address] [place] [address] Physician Medical Records Tech Surgery, Neurosurgery 02/05/25 documented as of this encounter
--- OUTSIDE RECORDS SUMMARY | 2025-04-14 22:49 | XMS_ITS | Clinical Summary ---
Author Organization [facility] Prior to 09/19/[address] [place] [address] Care Team Providers Care Community Relations Police Lieutenant Name Role Phone Brett Sharma Primary Care Provider [phone] Allergies Active Allergy Reactions Criticality Noted Date Comments Amoxicillin-Pot Clavulanate Anaphylaxis High 10/19/2013 Cinnamon 12/31/2023 Doxycycline Anaphylaxis High 05/03/2017 Hydrocodone-Acetaminoph en Swelling 05/03/2017 Ibuprofen Anaphylaxis High 12/31/2023 Latex Rash Low 05/21/2019 Meperidine Swelling 05/03/2017 Morphine 09/12/2021 Other Rash Low 04/04/2017 turnips Oxycodone-Acetaminophen Rash,Swelling Low 8 Prednisone Other (See Comments) Medium 08/28/2022 [place] Hives Medium 04/04/2017 Tramadol Itching Low 09/12/2023 [...] age to complete this topic Care Teams Community Relations Police Lieutenant Relationship Specialty Start Date End Date Brett Sharma [address] [facility] [place] [address] PCP - General Family Medicine 09/11/21
--- OUTSIDE RECORDS SUMMARY | 2025-04-14 22:49 | XMS_ITS | Clinical Summary ---
Author Organization [facility] Address [address] [place] [address] Phone Care Team Providers Care Cross Tie Turner Name Role Phone Brett Sharma NP Primary Care Provider Allergies Active Allergy Reactions Criticality Noted Date Comments [place] Oil Rash Low 04/04/2017 Amoxicillin-Pot Clavulanate Anaphylaxis High 10/19/2013 Cinnamon Unknown Medium 12/31/2023 Doxycycline Anaphylaxis High 05/03/2017 Flavoring Agent (Bulk) Rash Low 04/04/2017 Hydrocodone-Acetaminophen Swelling 05/03/2017 Ibuprofen Anaphylaxis High 12/31/2023 Latex Rash Low 05/21/2019 Meperidine Swelling 05/03/2017 Morphine 09/12/2021 Other Rash Low 04/04/2017 [place] Oxycodone-Acetaminophen Rash,Swelling Low 8 Prednisone Medium 08/28/2022 Other Reaction(s): Other (See Comments) [place] Hives Medium 04/04/2017 Tramadol Itching Low 09/12/2023 [...] your loved ones. For example, child and adolescent psychologist or elderly care for an older adult? [...] EST Office Visit Obstetrics and Gynecology - [address] [place] [phone] Faustina Weaver MD [address] [facility] 10[address] [place] [address] Health Maintenance Due Date Last Done Comments [...] Results * Cervical Cancer Screening: HPV (12/31/2023) [facility] Cervical Cancer Screening: HPV Negative, Abstracted Historical Provider HEALTH MAINTENANCE Final Result * HIV Screening (10/17/2022) [facility] HIV Screening Abstracted [facility] Provider HEALTH MAINTENANCE Final Result * Hepatitis C Screening (10/17/2022) [facility] Hepatitis C Screening Abstracted [facility] Provider HEALTH MAINTENANCE Final Result from Last 3 Months or Most Recently Relevant to Health Maintenance Insurance Care Teams Cross Tie Turner Relationship Specialty Start Date End Date Brett Sharma NP 262 [place], [place] PCP - General Family Medicine 09/11/21
--- OUTSIDE RECORDS SUMMARY | 2025-04-14 22:49 | XMS_ITS | Encounter Summary ---
Author Organization [facility]ly [facility] Address [address] [place] [address] Care Team Providers Care Refueling Ramp Supervisor Name Role Phone Brett Sharma NP Primary Care Provider + [phone] Isis Young RN Unavailable Tip Campos MD Unavailable [phone] Magnus Perez MD Unavailable [phone] System, Provider Not In Unavailable Unavaila Miki Diana MD Unavailable [phone] Raúl Pike MD Unavailable Jorge Moreno DO Unavailable [phone] Arturo Bunn MD Unavailable Leatha Mc Unavailable [phone] Encounter Details Date Type Department Care Team (Late st Contact Info) Description 03/19/2025 Scanned Document [facility] Neurosurgery [address] [address] Tip Campos MD [address] [place] [address] Social History Tobacco Use Types Packs/Day [...] any time in the past 12 [facility], were you homeless or living in a care home (including now)? No 02/05/2025 [facility] Utilities Answer Date Recorded In [...] [facility] [address] [place] [address] Clyde Martin PA 399 [facility] 210 [place] [address] 06/01/2025 10:00 AM EST Office Visit [facility] Neurosurgery [place] [address] [phone] Samara Mendoza PA-C [address] [address] documented as of this encounter Goals Goal Patient Goal Type Associated Problems Recent Progress Patient-Stated? Author ST LTG 1 Speech Therapy No Zeina Messer CCC-LOAN ANALYST Note: Pt will tolerate least restrictive diet without s/s aspiration. ST STG 1 Speech Therapy No Zeina Messer CCC-LOAN ANALYST Note: Pt will complete an instrumental swallowing evaluation within 2 weeks. Additional goals to be set as indicated. documented as of this encounter Visit Diagnoses Not on filedocumented in this encounter Care Teams Refueling Ramp Supervisor Relationship Specialty Start Date End Date Brett Sharma NP 262 [place] [address] PCP - General Family Medicine 03/03/24 Isis Young RN 80 [place] [address] Nurse Navigator Surgery, Neurosurgery 01/25/25 Tip Campos MD [address] [place] [address] Surgery, Neurosurgery 02/01/25 Magnus Perez MD [address] [place] [phone] Cardiovascular Disease 02/01/25 System, Provider Not In [address] [place] [address] Hematology Oncology 02/01/25 Miki Blackwood MD 15 [place] [address] Endocrinology 02/01/25 Raúl Pike MD [address] [place] [address] Gastroenterology 02/01/25 Jorge Moreno DO 269 [facility] 201 [place] [address] Immunology 02/01/25 Arturo Bunn MD [address] [place] [address] Otolaryngology 02/01/25 Leatha Mc PA [address] [place] [address] [place] [address] Physician Information Systems Supervisor Surgery, Neurosurgery 02/05/25 documented as of this encounter
--- OUTSIDE RECORDS SUMMARY | 2025-04-14 22:49 | XMS_ITS | Encounter Summary ---
Author Organization [facility] Address [address] [place] [address] Care Team Providers Care Community Pharmacist Name Role Phone Brett Sharma NP Primary Care Provider + [phone] Isis Young RN Unavailable [phone] Tip Campos MD Unavailable [phone] Magnus Perez MD Unavailable [phone] System, Provider Not In Unavailable Unavaila Miki Diana MD Unavailable [phone] Raúl Pike MD Unavailable [phone] Jorge Moreno DO Unavailable Arturo Bunn MD Unavailable Leatha Mc Unavailable [phone] Encounter Details Date Type Department Care Team (Late st Contact Info) Description 01/27/2025 Scanned Document [facility] Neurosurgery [address] [place] [address] Tip Campos MD [address] [place] [address] 1003 [place] [address] Social History Tobacco Use Types [...] Description 04/26/2025 1:00 PM EST Office Visit [facility] Plastic & Reconstructive Surgery [address] [address] Clyde Martin PA [address] [place] [address] 06/01/2025 10:00 AM EST Office Visit [facility] Neurosurgery [address] [address] Samara Mendoza PA-C [address] [address] documented as of this encounter Visit Diagnoses Not on filedocumented in this encounter Care Teams Community Pharmacist Relationship Specialty Start Date End Date Brett Sharma NP [address] [place] [address] PCP - General Family Medicine 03/03/24 Isis Young RN 80 [place] [address] Nurse Navigator Surgery, Neurosurgery 01/25/25 Tip Campos MD [address] [address] Surgery, Neurosurgery 02/01/25 Magnus Perez MD [address] [place] [phone] Cardiovascular Disease 02/01/25 System, Provider Not In [address] [place] [phone] Hematology Oncology 02/01/25 Miki Blackwood MD [address] [place] [address] Endocrinology 02/01/25 Raúl Pike MD [address] [place] [address] Gastroenterology 02/01/25 Jorge Moreno DO 269 [facility] [address] [place] [address] Immunology 02/01/25 Arturo Bunn MD [address] [place] [address] Otolaryngology 02/01/25 Leatha Mc PA [address] [place] [address] Physician Pot Room Tapper Surgery, Neurosurgery 02/05/25 documented as of this encounter
--- OUTSIDE RECORDS SUMMARY | 2025-04-14 22:49 | XMS_ITS | Encounter Summary ---
Author Organization [facility] Address [address] [place] [address] Care Team Providers Care Commercial Driver Name Role Phone Pcp, No Primary Care Provider Unavailabl Brett Iqbal NP Primary Care Provider [phone] Isis Young RN Unavailable [phone] Tip Campos MD Unavailable [phone] Magnus Perez MD Unavailable System, Provider Not In Unavailable Unavaila Miki Diana MD Unavailable Raúl Pike MD Unavailable Jorge Moreno DO Unavailable Arturo Bunn MD Unavailable Leatha Mc Unavailable [phone] Encounter Details Date Type Department Care Team (Late st Contact Info) Description 02/27/2024 Scanned Document [facility] Plastic & Reconstructive Surgery [address] 210 [place] [phone] Michael Long MD [address] [place] [address] 210 [place] [address] Social History Tobacco Use Types Packs/Day Years [...] Description 04/26/2025 1:00 PM EST Office Visit [facility] Plastic & Reconstructive Surgery [address] [address] Clyde Martin PA [address] [place] [address] 06/01/2025 10:00 AM EST Office Visit [facility] Neurosurgery [place] [address] [phone] Samara Mendoza PA-C [address] [address] documented as of this encounter Visit Diagnoses Not on filedocumented in this encounter Care Teams Commercial Driver Relationship Specialty Start Date End Date Pcp, No PCP - General General Medicine 03/04/19 03/02/24 Brett Sharma NP [address] [place] [address] PCP - General Family Medicine 03/03/24 Isis Young RN 80 [place] [address] Nurse Navigator Surgery, Neurosurgery 01/25/25 Tip Campos MD [address] [address] Surgery, Neurosurgery 02/01/25 Magnus Perez MD [address] [place] [phone] Cardiovascular Disease 02/01/25 System, Provider Not In [address] [place] [phone] Hematology Oncology 02/01/25 Miki Blackwood MD [address] [place] [address] Endocrinology 02/01/25 Raúl Pike MD [address] [place] [address] Gastroenterology 02/01/25 Jorge Moreno DO [address] [place] [address] Immunology 02/01/25 Arturo Bunn MD [address] [place] [address] Otolaryngology 02/01/25 Leatha Mc PA [address] [address] Physician Loading Unit Operator Crimping Surgery, Neurosurgery 02/05/25 documented as of this encounter
--- OUTSIDE RECORDS SUMMARY | 2025-04-14 22:49 | XMS_ITS | Encounter Summary ---
Author Organization [facility]ly [facility] Address [address] [place] [address] Care Team Providers Care Tire Bagger Name Role Phone Brett Sharma NP Primary Care Provider + [phone] Isis Young RN Unavailable [phone] Tip Campos MD Unavailable Magnus Perez MD Unavailable [phone] System, Provider Not In Unavailable Unavaila Miki Diana MD Unavailable [phone] Raúl Pike MD Unavailable Jorge Moreno DO Unavailable [phone] Arturo Bunn MD Unavailable Leatha Mc Unavailable [phone] Encounter Details Date Type Department Care Team (Late st Contact Info) Description 01/22/2025 Scanned Document [facility] [id number] [address] [place] [address] Tip Campos MD [address] [place] [address] [place] [address] Social History Tobacco Use Types Packs/Day [...] PM EST Office Visit [facility] Plastic & Reconstructive Surgery [place] [address] [address] Clyde Martin PA [address] [place] [address] 06/01/2025 10:00 AM EST Office Visit [facility] Neurosurgery [place] [address] [phone] Samara Mendoza PA-C [address] [phone] documented as of this encounter Visit Diagnoses Not on filedocumented in this encounter Care Teams Tire Bagger Relationship Specialty Start Date End Date Brett Sharma NP [address] [place] [address] PCP - General Family Medicine 03/03/24 Isis Young RN 80 [place] [address] Nurse Navigator Surgery, Neurosurgery 01/25/25 Tip Campos MD [address] [address] Surgery, Neurosurgery 02/01/25 Magnus Perez MD [address] [place] [phone] Cardiovascular Disease 02/01/25 System, Provider Not In [address] [place] [phone] Hematology Oncology 02/01/25 Miki Blackwood MD [address] [place] [address] Endocrinology 02/01/25 Raúl Pike MD [address] [place] [address] Gastroenterology 02/01/25 Jorge Moreno DO 269 [facility] 201 [place] [address] Immunology 02/01/25 Arturo Bunn MD [address] [place] [address] Otolaryngology 02/01/25 Leatha Mc PA [address] [address] Physician Biomedical Specialist Surgery, Neurosurgery 02/05/25 documented as of this encounter
--- OUTSIDE RECORDS SUMMARY | 2025-04-14 22:49 | XMS_ITS | Patient Health Record ---
Author Organization [facility] Address [address] [place] [address] Care Team Providers Care Balloon Dipper Name Role Phone Rylee Dang Primary Care Provider Raúl Turner Jr Unavailable [phone] Allergies Allergen (clinical drug ingredient) Drug/Non Drug [...] Test Reviewed date:09/09/2024 08:27:13 AM Interpretation: Performing Lab:[facility], [address] [place] [phone] Notes/Report: Urine NEGATIVE NEGATIVE This test was developed to detect early . False negative results may occur after the 5th - 7th week of when using this test method. If clinically indicated, consider a serum hCG. 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 Problem Dysphagia (40377918) Dysphagia (R13.10) Active confirmed Problem Gastroesophageal reflux disease (785716025) Gastroesophageal reflux disease (K21.9) Active confirmed Problem Elevated liver enzymes level (103601675) Elevated liver function tests (R79.89) Active confirmed Problem Dysphagia (38256262) Dysphagia, unspecified type (R13.10) Active confirmed Problem Hepatic hemangioma (08926147) Hepatic hemangioma (D18.03) Active confirmed Problem Elevated liver enzymes level (545748161) Elevated liver function tests (R94.5) Active confirmed Problem Gastroesophageal reflux disease (876902103) Gastroesophageal reflux disease, unspecified whether esophagitis present (K21.9) Active confirmed Encounters Encounter Location Date Provider Diagnosis [facility] Outpatient [address] [place] [phone] 09/08/2024 Raúl Pike Jr Gamino esophagus K22.70 [facility] [address] [place] [phone] 09/11/2024 Raúl Pike Jr [facility] [address] [place] [address] 09/16/2024 Raúl iPke Jr Assessments Encounter Date Diagnosis (ICD Code) [...] Insured Coverage Start Date Coverage End Date [facility] [address] [place] [id number] ONDINA WINN Self - patient is the insured Medical (General) History Medical History History ICD Code Asthma hemochromatosis, Dr. Arturo Lawrence [facility] mitral valve prolapse Hepatic hemangioma Elevated liver [...]
--- OUTSIDE RECORDS SUMMARY | 2025-04-14 22:49 | XMS_ITS | Encounter Summary ---
Author Organization [facility] Address [address] [place] [address] Phone Care Team Providers Care Die Engraving Supervisor Name Role Phone Arturo Lawrence MD, PhD Unavailable [phone] Brett Sharma NP Primary Care Provider + Reason for Visit * Reason Onset Date Comments s/p procedure question 10/08/2023 Shannen Hernandez Encounter Details Date Type Department Care Team (Late st Contact Info) Description 10/08/2023 Telephone [facility] 55 [facility], 4th Floor, [address] [place] [address] Shannen Hayward MD [address] [place] [place] [address] [email or web address] s/p procedure question (Shannen Hayward) [...] Care Team (Late st Contact Info) Description 04/29/2025 10:30 AM EST Office Visit [facility] 55 [facility], 5th [place] [address] Ranjit Morley MD [address] [address] [email or web address] 05/18/2025 8:45 AM EST Evaluation [facility] [address] [place] [address] Charissa Lew AuD [address] [place] [address] [email or web address] 05/18/2025 9:30 AM EST Office Visit [facility] [address] [place] [address] Arturo Bunn MD, PhD [address] [place] [address] [email or web address] 06/08/2025 3:00 PM EST Office Visit [facility] 15 [facility], [address] [place] [address] Miki Blackwood MD 55 [facility] [address] [place] [address] [email or web address] 08/27/2025 9:10 AM EDT Office Visit [facility] 70 [place] [address] Pooja Jacob MD 75 [facility]3 [place] [address] [email or web address] 09/24/2025 10:30 AM EDT Office Visit [facility] Cardiology [facility] 52 [facility], [address] [place] [address] Magnus Perez MD 55 [facility] 5[address] [place] [address] [email or web address] documented as of this encounter Visit Diagnoses Not on filedocumented in this encounter Care Teams Die Engraving Supervisor Relationship Specialty Start Date End Date Brett Sharma NP [address] [facility] [place] [facility] [place] [address] PCP - General Family Medicine 08/16/21 Arturo Lawrence MD, PhD 55 [facility] Care[facility] [address] [place] [address] [email or web address] Hematology and Oncology 07/06/17 documented as of this encounter Additional Source Comments The information contained in this document represents components of the legal health record. It is not the complete legal health record.[facility]
--- OUTSIDE RECORDS SUMMARY | 2025-04-14 22:49 | XMS_ITS | Encounter Summary ---
Author Organization [facility] Address [address] [facility] [address] [place] [address] Phone Care Team Providers Care Quahogger Name Role Phone Arturo Lawrence MD, PhD Unavailable [phone] Brett Sharma NP Primary Care Provider + Encounter Details Date Type Department Care Team (Late st Contact Info) Description 08/28/2022 Procedure Pass [facility], Ct Scan - [address] [address] Social History Tobacco Use Types Packs/Day Years [...] Description 04/29/2025 10:30 AM EST Office Visit [facility] 55 [facility], 5th [place] [address] Ranjit Morley MD [address] [address] [email or web address] 05/18/2025 8:45 AM EST Evaluation [facility] [address] [place] [address] Charissa Lew AuD [address] [place] [address] [email or web address] 05/18/2025 9:30 AM EST Office Visit [facility] [address] [place] [address] Arturo Bunn MD, PhD [address] [place] [address] [email or web address] 06/08/2025 3:00 PM EST Office Visit [facility] 15 [facility], [address] [place] [address] Miki Blackwood MD [address] [place] [address] [place] [address] [email or web address] 08/27/2025 9:10 AM EDT Office Visit [facility] 70 [place] [address] Pooja Jacob MD [address] [place] [address] [email or web address] 09/24/2025 10:30 AM EDT Office Visit [facility] 52 [facility], [address] [place] [address] Magnus Perez MD [address] [address] [email or web address] documented as of this encounter Visit Diagnoses Not on filedocumented in this encounter Care Teams Quahogger Relationship Specialty Start Date End Date Brett Sharma NP [address] [place] [address] PCP - General Family Medicine 08/16/21 Arturo Lawrence MD, PhD [address] [place] [address] [address] [email or web address] Hematology and Oncology 07/06/17 documented as of this encounter Additional Source Comments The information contained in this document represents components of the legal health record. It is not the complete legal health record.[facility]
--- OUTSIDE RECORDS SUMMARY | 2025-04-14 22:49 | XMS_ITS | Encounter Summary ---
Author Organization [facility] Address [address] [facility] [address] [place] [address] Phone Care Team Providers Care Ordnance Truck Installation Mechanic Name Role Phone Arturo Lawrence MD, PhD Unavailable [phone] Brett Sharma NP Primary Care Provider + Encounter Details Date Type Department Care Team (Late st Contact Info) Description 02/12/2023 Procedure Pass [facility] PERIOPERATIVE DEPT 2013 [place], [place] [phone] Social History Tobacco Use Types Packs/Day Years [...] Description 04/29/2025 10:30 AM EST Office Visit [facility] 55 [facility], 5th [place] [address] Ranjit Morley MD 15 [facility] 535 [place] [address] [email or web address] 05/18/2025 8:45 AM EST Evaluation [facility] [address] [place] [address] Charissa Lew AuD 243 [place] [address] [email or web address] 05/18/2025 9:30 AM EST Office Visit [facility] [address] [place] [address] Arturo Bunn MD, PhD [address] [place] [address] [email or web address] 06/08/2025 3:00 PM EST Office Visit [facility] 15 [facility], [address] [place] [address] Miki Blackwood MD 55 [facility] [address] [place] [address] [email or web address] 08/27/2025 9:10 AM EDT Office Visit [facility] 70 [place] [address] Pooja Jacob MD [address] [address] [email or web address] 09/24/2025 10:30 AM EDT Office Visit [facility] [address] [facility], [address] [place] [address] Magnus Perez MD 55 [facility] 5B [place] [address] [email or web address] documented as of this encounter Visit Diagnoses Not on filedocumented in this encounter Care Teams Ordnance Truck Installation Mechanic Relationship Specialty Start Date End Date Brett Sharma NP [address] [facility] [place] [address] PCP - General Family Medicine 08/16/21 Arturo Lawrence MD, PhD 55 [facility] Out[facility] CareYAW 7[address] [place] [address] [email or web address] Hematology and Oncology 07/06/17 documented as of this encounter Additional Source Comments The information contained in this document represents components of the legal health record. It is not the complete legal health record.[facility]
--- OUTSIDE RECORDS SUMMARY | 2025-04-14 22:49 | XMS_ITS | Encounter Summary ---
Author Organization [facility] Address [address] [facility] [address] [place] [address] Phone Care Team Providers Care Procedure Writer Name Role Phone Pcp, Not Required Primary Care Provider Arturo Castillo MD, PhD Unavailable [phone] Rylee Zendejas BANK GUARD Primary Care Provider Unknown, Unknown Primary Care Provider Rylee Sanchez BANK GUARD Primary Care Provider Brett Sharma BANK GUARD Primary Care Provider + Encounter Details Date Type Department Care Team (Late st Contact Info) Description 02/03/2018 Procedure Pass [facility] General Imaging [address] [place] [address] Social History Tobacco Use Types Packs/Day Years [...] Description 04/29/2025 10:30 AM EST Office Visit [facility] 55 [facility], 5th [place] [address] Ranjit Morley MD [address] [place] [address] [email or web address] 05/18/2025 8:45 AM EST Evaluation [facility] [address] [place] [address] Charissa Lew AuD 243 [place] [address] [email or web address] 05/18/2025 9:30 AM EST Office Visit [facility] [address] [place] [address] Arturo Bunn MD, PhD [address] [place] [address] [email or web address] 06/08/2025 3:00 PM EST Office Visit [facility] 15 [facility], [address] [place] [address] Miki Blackwood MD [address] [place] [address] [address] [place] [address] [email or web address] 08/27/2025 9:10 AM EDT Office Visit [facility] 70 [place] [address] Pooja Jacob MD [address] [place] [address] [email or web address] 09/24/2025 10:30 AM EDT Office Visit [facility] Card[facility] [address] [facility], [address] [place] [address] Magnus Perez MD [address] [facility] YAW [address] [place] [address] [email or web address] documented as of this encounter Visit Diagnoses Not on filedocumented in this encounter Care Teams Procedure Writer Relationship Specialty Start Date End Date Pcp, Not Required PCP - General 08/24/16 04/26/19 Rylee Zendejas NP [address] [place] [address] [email or web address] PCP - General Family Medicine 04/27/19 06/15/19 Unknown, Cesario, [address] [place] [address] PCP - General 06/16/19 06/22/19 Rylee Zendejas NP [address] [place] [address] [place] [address] [email or web address] PCP - General Family Medicine 06/23/19 08/15/21 Brett Sharma, SELWYN [address] [place] [address] [place] [address] PCP - General Family Medicine 08/16/21 Arturo Lawrence MD, PhD [address] [place] [address] [facility] 7B [place] [address] [email or web address] Hematology and Oncology 07/06/17 documented as of this encounter Additional Source Comments The information contained in this document represents components of the legal health record. It is not the complete legal health record.[facility]
--- OUTSIDE RECORDS SUMMARY | 2025-04-14 22:49 | XMS_ITS | Encounter Summary ---
Author Organization [facility] Address [address] [facility] [address] [place] [address] Phone Care Team Providers Care Die Cast Supervisor Name Role Phone Arturo Lawrence MD, PhD Unavailable [phone] Brett Sharma NP Primary Care Provider + Encounter Details Date Type Department Care Team (Late st Contact Info) Description 11/30/2021 Procedure Pass [facility] Cardiology [address] [facility], [address] [place] [address] Social History Tobacco Use Types Packs/Day Years [...] Description 04/29/2025 10:30 AM EST Office Visit [facility] 55 [facility], 5th [place] [address] Ranjit Morley MD [address] [address] [email or web address] 05/18/2025 8:45 AM EST [facility] [address] [address] Charissa Lew AuD 243 [place] [address] [email or web address] 05/18/2025 9:30 AM EST Office Visit [facility] [address] [place] [address] Arturo Bunn MD, PhD 243 [place] [address] [email or web address] 06/08/2025 3:00 PM EST Office Visit [facility] 15 [facility], [address] [place] [address] Miki Blackwood MD [address] [place] [address] [address] [place] [address] [email or web address] 08/27/2025 9:10 AM EDT Office Visit [facility] 70 [place] [address] Pooja Jacob MD [address] [address] [email or web address] 09/24/2025 10:30 AM EDT Office Visit [facility] 52 [facility], [address] [place] [address] Magnus Perez MD 55 [facility] YA 5[address] [place] [address] [email or web address] documented as of this encounter Visit Diagnoses Not on filedocumented in this encounter Care Teams Die Cast Supervisor Relationship Specialty Start Date End Date Brett Sharma NP [address] [facility] [place] [address] PCP - General Family Medicine 08/16/21 Arturo Lawrence MD, PhD [address] [place] [address] Outpatient CareYA [address]B [place] [address] AURELIA@[email or web address] Hematology and Oncology 07/06/17 documented as of this encounter Additional Source Comments The information contained in this document represents components of the legal health record. It is not the complete legal health record.[facility]
--- OUTSIDE RECORDS SUMMARY | 2025-04-14 22:49 | XMS_ITS | Clinical Summary ---
Author Organization [facility] Address [address] [address] Phone Care Team Providers Care Production Finisher Name Role Phone Arturo Lawrence MD, PhD Unavailable [phone] Brett Sharma NP Primary Care Provider + Allergies Active Allergy Reactions Criticality Noted Date Comments [place] Oil Rash Low 04/04/2017 Amoxicillin-Pot Clavulanate Anaphylaxis High 10/19/2013 Flavoring Agent (Bulk) Rash Low 04/04/2017 Meperidine Swelling 05/03/2017 Doxycycline Hyclate Anaphylaxis High 05/03/2017 Ibuprofen 05/23/2022 Throat tightness feels like asthma attack Latex, Natural Rubber Rash Low 05/21/2019 Morphine Itching,Swelling 10/19/2013 Other 08/28/2022 turnip Oxycodone-Acetaminophen Swelling 05/03/2017 Ok with tylenol Prednisone Neuropathy Medium 08/28/2022 [place] Hives Medium 04/04/2017 Tramadol Itching Low 09/12/2023 [...] a review, she has been followed at [facility] in [place]. A prior echocardiogram reports mild posterior mitral [...] the study from July 2017 done in [facility]. She will try to send me the [...] repeat echocardiogram in July 2018 at the [facility] facility and then one week later an office visit with me to review the findings. Follow up in July 2018, one week after the repeat echocardiogram. 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 Lawrence for hemochromatosis and receives therapeutic phlebotomy. There is a plan from her computer programmer chief, Dr. Castle at [place] to perform a cardiac MRI to assess [...] Type Department Care Team Description 02/01/2025 Telephone [facility] Cardiology 55 [place] [address] Magnus Perez MD 01/25/2025 Telephone [facility] 52 [facility], [address] [place] [address] Magnus Perez MD 01/20/2025 Ancillary Orders [facility] Imaging 55 [place] [address] Cesario, MD Cesario 01/19/2025 4:26 PM EDT - 01/19/2025 11:59 PM EDT Hospital Encounter [facility] [address] [place] [address] Jorge Moreno DO Discharge Disposition: Home or Self Care 01/19/2025 Transcribe Orders [facility] 30 [place] [address] Jorge Moreno DO Adverse food reaction, subsequent encounter (Primary Dx); Allergy to other foods 01/18/2025 Orders Only [facility] 32 [facility], 7th Floor, [address] [place] [address] Arturo Lawrence MD, PhD 01/17/2025 - 01/17/2025 11:59 PM EDT Hospital Encounter [facility] 55 [place] [address] Unknown, Unknown, MD Discharge Disposition: Home or Self Care 01/15/2025 11:30 AM EDT Evaluation [facility] [address] [place] [address] Arturo Bunn MD, PhD Alecia Hogan Sensorineural hearing loss (SNHL) of both ears (Primary Dx) 01/15/2025 11:00 AM EDT Evaluation [facility] [address] [place] [address] Arturo Bunn MD, PhD Sharon Borrego, Luis Sensorineural hearing loss, bilateral 01/15/2025 9:30 AM EDT Office Visit [facility] [address] [place], [place] [address] Arturo Bunn MD, PhD Sudden left hearing loss (Primary Dx); Sensorineural hearing loss (SNHL), bilateral 01/15/2025 Transcribe Orders [facility] [address] [place] [address] Arturo Bunn MD, PhD Hearing disorder, unspecified [...] Description 04/29/2025 10:30 AM EST Office Visit [facility] 55 [facility], 5th [place] [address] Ranjit Morley MD [address] [address] [email or web address] 05/18/2025 8:45 AM EST Evaluation [facility] [address] [place] [address] Charissa Lew AuD 243 [place] [address] Amanda@[email or web address] 05/18/2025 9:30 AM EST Office Visit [facility] [address] [place] [address] Arturo Bunn MD, PhD 243 [place] [address] [email or web address] 06/08/2025 3:00 PM EST Office Visit [facility] [address] [employer], [address] [place] [address] Miki Blackwood MD 55 [facility] [address] [place] [address] [email or web address] 08/27/2025 9:10 AM EDT Office Visit [facility] 70 [place] [address] Pooja Jacob MD 75 [facility] [place] [address] [email or web address] 09/24/2025 10:30 AM EDT Office Visit [facility] Card[facility] 52 [facility], [address] [place] [address] Magnus Perez MD 55 [facility] [address] [address] [email or web address] Health Maintenance Due Date Last Done Comments [...] this topic Medical Devices Implanted Type Area Configuration Developer Device Identifier Shelf Expiration Date Model / [...] PM EDT) ALLAN IGE <0.10 <0.70 kU/L [facility]PATH SUPERIOR Comment: (NOTE) Class 0 (Negative <0.10) ADDITIONAL INFORMATION This test was developed and its performance characteristics determined by [facility] in a manner consistent with CLIA requirements. This test has not been cleared or approved by the U.S. Food and Drug Administration. Blood 01/19/2025 4:41 PM EDT 01/19/2025 4:47 PM EDT Jorge Moreno DO LAB BLOOD ORDERABLES Final R esult [facility]/PATH SU[place] [address] * Immunoglobulin E, total (01/19/2025 4:41 PM EDT) IGE 27.8 <=214 kU/L [facility] LAB MED/PATH SUPERIOR Blood 01/19/2025 4:41 PM EDT 01/19/2025 4:47 PM EDT us Jorge Moreno DO LAB BLOOD BKR ORDERABLES Fin al Result Performing Organization Address City/[facility] Co de Phone Number [facility] LAB MED/PATH SUPERIOR [place] [address] * MRI Spine (Bone) Outside (No Interpretation) (01/17/2025 12:00 AM EDT) Narrative [facility] IMG INTERFACES - 01/20/2025 1:35 PM EDT This study is for PACS storage only and not for interpretation. us Unknown Unknown IMG OUTSIDE IMAGING W/OUT INT ERPRETATION Final Result Performing Organization Address [facility]/ZIP Co de Phone Number [facility] IMG INTERFACES * Audiology Orders (01/15/2025 11:13 AM EDT) 01/15/2025 11:1 3 AM EDT us Provider Not In System PhD AUDIOLOGY SERVICES OR DERABLES Final Result Performing Organization Address City/[facility]/ZIP Co de Phone Number DR BERNAL AUD * TSH (12/24/2024 4:54 PM EDT) TSH 0.47 0.27 - 4.20 uIU/mL [facility] Blood 12/24/2024 4:54 PM EDT 12/24/2024 5:01 PM EDT us Miki Blackwood MD LAB BLOOD BKR ORDERABLES F inal Result Performing Organization Address City/[facility]/ZIP Co de Phone Number [facility] 30 [place] [address] from Last 3 Months or Most Recently Relevant to Health Maintenance Insurance AETNA PPO AETNA PPO AETNA PPO AETNA PPO AETNA PPO AETNA PPO AET[employer] PPO [place] [address] Care Teams Production Finisher Relationship Specialty Start Date End Date Brett Sharma NP [address] [place] [address] PCP - General Family Medicine 08/16/21 Arturo Lawrence MD, PhD [address] [place] [address] [facility] [address] [place] [address] [email or web address] Hematology and Oncology 07/06/17 Additional Source Comments The information contained in this document represents components of the legal health record. It is not the complete legal health record.[facility]
--- OUTSIDE RECORDS SUMMARY | 2025-04-14 22:49 | XMS_ITS | Encounter Summary ---
Author Organization [facility] Address [address] [facility] [address] [place] [address] Phone Care Team Providers Care Appraisal Technician Name Role Phone Arturo Lawrence MD, PhD Unavailable [phone] Brett Sharma NP Primary Care Provider + Encounter Details Date Type Department Care Team (Late st Contact Info) Description 09/28/2022 Procedure Pass [facility] [place] 32 [facility], 6th [place] [address] Social History Tobacco Use Types Packs/Day Years [...] Description 04/29/2025 10:30 AM EST Office Visit [facility] 55 [facility], 5th [place] [address] Ranjit Morley MD 15 [facility] 535 [place] [address] [email or web address] 05/18/2025 8:45 AM EST Evaluation [facility] [address] [place] [address] Charissa Lew AuD 243 [place] [address] Amanda@[email or web address] 05/18/2025 9:30 AM EST Office Visit [facility] [address] [place] [address] Arturo Bunn MD, PhD [address] [place] [address] [email or web address] 06/08/2025 3:00 PM EST Office Visit [facility] 15 [facility], [address] [place] [address] Miki Blackwood MD 55 [facility] [address] [place] [address] KALPANA@[facility] 08/27/2025 9:10 AM EDT Office Visit [facility] 70 [place] [address] Pooja Jacob MD [address] [address] NINI@[email or web address] 09/24/2025 10:30 AM EDT Office Visit [facility] 52 [facility], [address] [place] [address] Magnus Perez MD 55 [facility] 5B [place] [address] [email or web address] documented as of this encounter Visit Diagnoses Not on filedocumented in this encounter Care Teams Appraisal Technician Relationship Specialty Start Date End Date Brett Sharma NP [address] [facility] [place] [address] PCP - General Family Medicine 08/16/21 Arturo Lawrence MD, PhD [address] [place] [address] Outpatient CareYAW 7B [place] [address] AURELIA@[email or web address].[facility] Hematology and Oncology 07/06/17 documented as of this encounter Additional Source Comments The information contained in this document represents components of the legal health record. It is not the complete legal health record.[facility]
--- OUTSIDE RECORDS SUMMARY | 2025-04-14 22:49 | XMS_ITS | Encounter Summary ---
Author Organization [facility] Address [address] [place] [address] Care Team Providers Care Resident Care Director Name Role Phone Brett Sharma NP Primary Care Provider + [phone] Isis Young RN Unavailable Tip Campos MD Unavailable Magnus Perez MD Unavailable [phone] System, Provider Not In Unavailable Unavaila Miki Diana MD Unavailable [phone] Raúl Pike MD Unavailable Jogre Moreno DO Unavailable [phone] Arturo Bunn MD Unavailable Leatha Mc Unavailable [phone] Encounter Details Date Type Department Care Team (Late st Contact Info) Description 03/04/2024 Scanned Document [facility] Plastic & Reconstructive Surgery [address] [place] [address] Michael Long MD [address] [place] [address] 210 [place] [address] Social History Tobacco Use Types Packs/Day Years [...] [facility] [place] [address] [address] Clyde Martin PA [address] [place] [address] 06/01/2025 10:00 AM EST Office Visit [facility] Neurosurgery [place] [address] [phone] Samara Mendoza PA-C [address] [phone] documented as of this encounter Visit Diagnoses Not on filedocumented in this encounter Care Teams Resident Care Director Relationship Specialty Start Date End Date Brett Sharma NP [address] [place] [address] PCP - General Family Medicine 03/03/24 Isis Young RN 80 [place] [address] Nurse Navigator Surgery, Neurosurgery 01/25/25 Tip Campos MD [address] [place] [address] [place] [address] Surgery, Neurosurgery 02/01/25 Magnus Perez MD [address] [place] [phone] Cardiovascular Disease 02/01/25 System, Provider Not In [address] [place] [phone] Hematology Oncology 02/01/25 Miki Blackwood MD [address] [place] [address] Endocrinology 02/01/25 Raúl Pike MD [address] [place] [address] Gastroenterology 02/01/25 Jorge Moreno DO [address] [facility] 201 [place] [address] Immunology 02/01/25 Arturo Bunn MD [address] [place] [address] Otolaryngology 02/01/25 Leatha Mc PA 85 [facility] [address] [place] [address] Physician St[facility] Surgery, Neurosurgery 02/05/25 documented as of this encounter
--- OUTSIDE RECORDS SUMMARY | 2025-04-14 22:49 | XMS_ITS | Encounter Summary ---
Author Organization [facility] Address [address] [place] [address] Phone Care Team Providers Care Freight Tallier Name Role Phone Arturo Lawrence MD, PhD Unavailable [phone] Brett Sharma NP Primary Care Provider + Encounter Details Date Type Department Care Team (Late st Contact Info) Description 10/04/2023 Procedure Pass [facility] Cardiology Echo [facility] [address] [facility], [address] [place] [id number] Social History Tobacco Use Types Packs/Day Years [...] Description 04/29/2025 10:30 AM EST Office Visit [facility] 55 [facility], 5th [place] [address] Ranjit Morley MD 15 [facility] 535 [place] [address] [email or web address]@[email or web address] 05/18/2025 8:45 AM EST Evaluation [facility] [address] [place] [address] Charissa Lew AuD [address] [place] [address] Amanda@[email or web address] 05/18/2025 9:30 AM EST [facility] [address] [place] [address] Arturo Bunn MD, PhD [address] [place] [address] [email or web address]@[facility] 06/08/2025 3:00 PM EST Office Visit [facility] 15 [facility], [address] [place] [address] Miki Blackwood MD 55 [facility] [address] [place] [address] KALPANA@[facility] 08/27/2025 9:10 AM EDT Office Visit [facility] 70 [place] [address] Pooja Jacob MD [address] [address] NINI@[facility] 09/24/2025 10:30 AM EDT Office Visit [facility] [address] [facility], [address] [place] [address] Magnus Perez MD [address] [facility] 5B [place] [address] [email or web address] documented as of this encounter Visit Diagnoses Not on filedocumented in this encounter Care Teams Freight Tallier Relationship Specialty Start Date End Date Brett Sharma, SELWYN [address] [place] [address] PCP - General Family Medicine 08/16/21 Arturo Lawrence MD, PhD [address] [place] [address] Outpatient CareYAW [address]B [place] [address] AURELIA@[email or web address].[facility] Hematology and Oncology 07/06/17 documented as of this encounter Additional Source Comments The information contained in this document represents components of the legal health record. It is not the complete legal health record.[facility]
--- OUTSIDE RECORDS SUMMARY | 2025-04-14 22:49 | XMS_ITS | Encounter Summary ---
Author Organization [facility] Address [address] [place] [address] Care Team Providers Care Brick Offbearer Name Role Phone Pcp, No Primary Care Provider Unavailabl Brett Iqbal NP Primary Care Provider [phone] Isis Young RN Unavailable Tip Campos MD Unavailable [phone] Magnus Perez MD Unavailable System, Provider Not In Unavailable Unavaila Miki Diana MD Unavailable [phone] Raúl Pike MD Unavailable Jorge Moreno DO Unavailable Arturo Bunn MD Unavailable Laetha Mc Unavailable [phone] Encounter Details Date Type Department Care Team (Late st Contact Info) Description 02/27/2024 Scanned Document [facility] Plastic & Reconstructive Surgery [address] [place] [phone] Michael Long MD [address] [place] [address] 210 [place] [address] Social History Tobacco Use Types Packs/Day Years [...] [facility] Plastic & Reconstructive Surgery [address] [phone] Clyde Martin PA [address] [place] [address] 06/01/2025 10:00 AM EST Office Visit [facility] Neurosurgery [place] [address] [phone] Samara Mendoza PA-C [address] [address] documented as of this encounter Visit Diagnoses Not on filedocumented in this encounter Care Teams Brick Offbearer Relationship Specialty Start Date End Date Pcp, No PCP - General General Medicine 03/04/19 03/02/24 Brett Sharma NP [address] [place] [address] PCP - General Family Medicine 03/03/24 Isis Young RN 80 [place] [address] Nurse Navigator Surgery, Neurosurgery 01/25/25 Tip Campos MD [address] [address] Surgery, Neurosurgery 02/01/25 Magnus Perez MD [address] [place] [phone] Cardiovascular Disease 02/01/25 System, Provider Not In [address] [place] [phone] Hematology Oncology 02/01/25 Miki Blackwood MD [address] [place] [address] Endocrinology 02/01/25 Raúl Pike MD [address] [place] [address] Gastroenterology 02/01/25 Jorge Moreno DO [address] [place] [address] Immunology 02/01/25 Arturo Bunn MD [address] [place] [address] Otolaryngology 02/01/25 Leatha Mc PA [address] [address] Physician Core Inspector Surgery, Neurosurgery 02/05/25 documented as of this encounter
--- OUTSIDE RECORDS SUMMARY | 2025-04-14 22:49 | XMS_ITS | Encounter Summary ---
Author Organization [facility] Address [address] [address] Phone Care Team Providers Care Shipping Room Helper Name Role Phone Pcp, Not Required Primary Care Provider Unavaila Arturo Tong MD, PhD Unavailable [phone] Rylee Zendejas RAILWAY SIGNAL TECHNICIAN Primary Care Provider Unknown, Unknown Primary Care Provider Rylee Sanchez RAILWAY SIGNAL TECHNICIAN Primary Care Provider Brett Sharma RAILWAY SIGNAL TECHNICIAN Primary Care Provider + Encounter Details Date Type Department Care Team (Late st Contact Info) Description 08/14/2018 Transcribe Orders [facility] Phleb Main 30 [place] [address] Arturo Lawrence MD, PhD [address] [place] [address] [address] [email or web address] u Social History Tobacco Use [...] Description 04/29/2025 10:30 AM EST Office Visit [facility] 55 [facility], 5th [place] [address] Ranjit Morley MD 15 [facility] 535 [place] [address] [email or web address] 05/18/2025 8:45 AM EST Evaluation [facility] [address] [place] [address] Charissa Lew AuD [address] [place] [address] [email or web address] 05/18/2025 9:30 AM EST Office Visit [facility] [address] [place] [address] Arturo Bunn MD, PhD [address] [place] [address] [email or web address] 06/08/2025 3:00 PM EST Office Visit [facility] 15 [facility], [address] [place] [address] Miki Blackwood MD 55 [facility] [address] [place] [address] [email or web address] 08/27/2025 9:10 AM EDT Office Visit [facility] 70 [place] [address] Pooja Jacob MD [address] [address] [email or web address] 09/24/2025 10:30 AM EDT Office Visit [facility] 52 [facility], [address] [place] [address] Magnus Perez MD 55 [facility] 5B [place] [address] [email or web address] documented as of this encounter Visit Diagnoses Not on filedocumented in this encounter Care Teams Shipping Room Helper Relationship Specialty Start Date End Date Pcp, Not Required PCP - General 08/24/16 04/26/19 Rylee Zendejas, SELWYN [address] [place] [address] [email or web address] PCP - General Family Medicine 04/27/19 06/15/19 Unknown, Unknown, [address] [place] [address] PCP - General 06/16/19 06/22/19 Rylee Zendejas NP [address] [place] [address] [place] [address] [email or web address] PCP - General Family Medicine 06/23/19 08/15/21 Brett Sharma NP [address] [place] [address] [place] [address] PCP - General Family Medicine 08/16/21 Arturo Lawrence MD, PhD 55 [facility] Outpatient CareY[facility] 7B [place] [address] [email or web address] Hematology and Oncology 07/06/17 documented as of this encounter Additional Source Comments The information contained in this document represents components of the legal health record. It is not the complete legal health record.[facility]
--- OUTSIDE RECORDS SUMMARY | 2025-04-14 22:49 | XMS_ITS | Encounter Summary ---
Author Organization [facility] Address [address] [address] Phone Care Team Providers Care Pharmaceutical Plant Operator Name Role Phone Pcp, Not Required Primary Care Provider Unavaila Arturo Tong MD, PhD Unavailable [phone] Rylee Zendejas LAUNDRY OPERATOR FINISHING Primary Care Provider Unknown, Unknown Primary Care Provider Rylee Sanchez LAUNDRY OPERATOR FINISHING Primary Care Provider Brett Sharma LAUNDRY OPERATOR FINISHING Primary Care Provider + Encounter Details Date Type Department Care Team (Late st Contact Info) Description 04/07/2019 Transcribe Orders [facility] Phleb Main 30 [place] [address] Arturo Lawrence MD, PhD [address] [place] [address] [address] [email or web address] Pigment cirrhosis (Primary Dx) Social History [...] Description 04/29/2025 10:30 AM EST Office Visit [facility] 55 [facility], 5th [place] [address] Ranjit Morley MD 15 [facility] 535 [place] [address] [email or web address]@[email or web address] 05/18/2025 8:45 AM EST [facility] [address] [place] [address] Charissa Lew AuD [address] [place] [address] Amanda@[email or web address] 05/18/2025 9:30 AM EST Office [facility] [address] [place] [address] Arturo Bunn MD, PhD [address] [place] [address] [email or web address] 06/08/2025 3:00 PM EST Office Visit [facility] 15 [facility], [address] [place] [address] Miki Blackwood MD 55 [facility] [address] [place] [address] [email or web address] 08/27/2025 9:10 AM EDT Office Visit [facility] 70 [place] [address] Pooja Jacob MD [address] [address] [email or web address] 09/24/2025 10:30 AM EDT Office Visit [facility] 52 [facility], [address] [place] [address] Magnus Perez MD [address] [facility] [address] YAW [address] [place] [address] [email or web address] documented as of this encounter Results * Ferritin (04/07/2019 9:28 AM EST) FERRITIN 22 13 - 150 ug/L [facility] Blood 04/07/2019 9:28 AM EST 04/07/2019 9:30 AM EST us Arturo Lawrence MD, PhD LAB BLOOD BKR ORDERABL ES Final Result Performing Organization Address [facility] de Phone Number [address] [address] * Iron and iron binding capacity (04/07/2019 9:28 AM EST) IRON 67 30 - 160 ug/dL [facility] IRON BINDING CAPACITY 230 228 - 428 ug/dL [facility] TRANSFERRIN SATURAT. 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 PCP - General Family Medicine 04/27/19 06/15/19 Unknown, Cesario, [address] [place] [address] PCP - General 06/16/19 06/22/19 Rylee Zendejas, LAUNDRY OPERATOR FINISHING [address] [place] [address] [place] [address] [email or web address] PCP - General Family Medicine 06/23/19 08/15/21 Brett Sharma, SELWYN [address] [place] [address] [place] [address] PCP - General Family Medicine 08/16/21 Arturo Lawrence MD, PhD [address] [place] [address] [facility] 7B [place] [address] [email or web address] Hematology and Oncology 07/06/17 documented as of this encounter Additional Source Comments The information contained in this document represents components of the legal health record. It is not the complete legal health record.[facility]
--- OUTSIDE RECORDS SUMMARY | 2025-04-14 22:49 | XMS_ITS | Encounter Summary ---
Author Organization [facility] Address [address] [address] Phone Care Team Providers Care Molasses Coloring Operator Name Role Phone Pcp, Not Required Primary Care Provider Unavaila Arturo Tong MD, PhD Unavailable [phone] Rylee Zendejas PREFORM PLATE MAKER Primary Care Provider Unknown, Unknown Primary Care Provider Rylee Sanchez PREFORM PLATE MAKER Primary Care Provider Brett Sharma PREFORM PLATE MAKER Primary Care Provider + Encounter Details Date Type Department Care Team (Late st Contact Info) Description 08/14/2018 Transcribe Orders [facility] Phleb Main 30 [place] [address] Arturo Lawrence MD, PhD [address] [place] [address] [address] [email or web address] u Social History Tobacco Use Types [...] Visit [facility] 55 [facility], 5th [place] [address] Ranjit Morley MD 15 [facility] 535 [place] [address] [email or web address]@[email or web address] 05/18/2025 8:45 AM EST Evaluation [facility] [address] [place] [address] Charissa Lew AuD [address] [place] [address] [email or web address] 05/18/2025 9:30 AM EST Office Visit [facility] [address] [place] [address] Arturo Bunn MD, PhD [address] [place] [address] [email or web address] 06/08/2025 3:00 PM EST Office Visit [facility] 15 [facility], [address] [place] [address] Miki Blackwood MD [address] [facility] [address] [place] [address] [email or web address] 08/27/2025 9:10 AM EDT Office Visit [facility] 70 [place] [address] Pooja Jacob MD [address] [address] NINI@[email or web address] 09/24/2025 10:30 AM EDT Office Visit [facility] 52 [facility], [address] [place] [address] Magnus Perez MD 55 [facility] 5[address] [place] [address] [email or web address] documented as of this encounter Visit Diagnoses Not on filedocumented in this encounter Care Teams Molasses Coloring Operator Relationship Specialty Start Date End Date Pcp, Not Required PCP - General 08/24/16 04/26/19 Rylee Zendejas, SELWYN [address] [place] [address] [email or web address] PCP - General Family Medicine 04/27/19 06/15/19 Unknown, Unknown, [address] [place] [address] PCP - General 06/16/19 06/22/19 Rylee Zendejas NP [address] [place] [address] [place] [address] [email or web address] PCP - General Family Medicine 06/23/19 08/15/21 Brett Sharma NP [address] [place] [address] [place] [address] PCP - General Family Medicine 08/16/21 Arturo Lawrence MD, PhD 55 [facility] Outpatient CareYAW [address] [place] [address] [email or web address] Hematology and Oncology 07/06/17 documented as of this encounter Additional Source Comments The information contained in this document represents components of the legal health record. It is not the complete legal health record.[facility]
--- OUTSIDE RECORDS SUMMARY | 2025-04-14 22:49 | XMS_ITS | Encounter Summary ---
Author Organization [facility] Address 399 [facility] [address] [place] [address] Phone Care Team Providers Care Cold Rolling Machine Setter Name Role Phone Arturo Lawrence MD, PhD Unavailable [phone] Brett Sharma NP Primary Care Provider + Encounter Details Date Type Department Care Team (Late Contact Info) Description 09/25/2023 Procedure Pass [facility] [address] [place] [id number] Social History Tobacco Use Types Packs/Day Years [...] Description 04/29/2025 10:30 AM EST Office Visit [facility] 55 [facility], 5th [place] [address] Ranjit Morley MD [address] [address] [email or web address] 05/18/2025 8:45 AM EST Evaluation [facility] [address] [place] [address] Charissa Lew AuD 243 [place] [address] [email or web address] 05/18/2025 9:30 AM EST Office Visit [facility] [address] [place] [address] Arturo Bunn MD, PhD [address] [place] [address] [email or web address] 06/08/2025 3:00 PM EST Office Visit [facility] 15 [facility], [address] [place] [address] Miki Blackwood MD 55 [facility] [address] [place] [address] [email or web address] 08/27/2025 9:10 AM EDT Office Visit [facility] 70 [place] [address] Pooja Jacob MD [address] [address] [email or web address] 09/24/2025 10:30 AM EDT Office Visit [facility] [address] [facility], [address] [place] [address] Magnus Perez MD 55 [facility] 5B [place] [address] [email or web address] documented as of this encounter Visit Diagnoses Not on filedocumented in this encounter Care Teams Cold Rolling Machine Setter Relationship Specialty Start Date End Date Brett Sharma, SELWYN [address] [facility] [address] PCP - General Family Medicine 08/16/21 Arturo Lawrence MD, PhD [address] [place] [address] Outpatient CareYAW 7B [place] [address] [email or web address] Hematology and Oncology 07/06/17 documented as of this encounter Additional Source Comments The information contained in this document represents components of the legal health record. It is not the complete legal health record.[facility]
--- OUTSIDE RECORDS SUMMARY | 2025-04-14 22:49 | XMS_ITS | Encounter Summary ---
Author Organization [facility] Address [address] [place] [address] Care Team Providers Care Debt Management Counselor Name Role Phone Brett Sharma NP Primary Care Provider [phone] Isis Young RN Unavailable [phone] Tip Campos MD Unavailable [phone] Magnus Perez MD Unavailable [phone] System, Provider Not In Unavailable Unavaila Miki Diana MD Unavailable [phone] Raúl Pike MD Unavailable Jorge Moreno DO Unavailable [phone] Arturo Bunn MD Unavailable Leatha Mc Unavailable [phone] Encounter Details Date Type Department Care Team (Late st Contact Info) Description 02/09/2025 Scanned Document [facility] Neurosurgery [address] [phone] Neurosurgery, Scan Social History Tobacco Use Types [...] the past [address] [facility], were you homeless or living in a [...] Description 04/26/2025 1:00 PM EST Office Visit [facility] Plastic & Reconstructive Surgery [place] 399 [facility] 210 [place] [address] Clyde Martin PA [address] [place] [address] 210 [place] [address] 06/01/2025 10:00 AM EST Office Visit [facility] Neurosurgery [place] 85 [facility] [address] [place] [phone] Samara Mendoza PA-C [address] [address] documented as of this encounter Visit Diagnoses Not on filedocumented in this encounter Care Teams Debt Management Counselor Relationship Specialty Start Date End Date Brett Sharma NP [address] [place] [address] PCP - General Family Medicine 03/03/24 Isis Young RN 80 [place] [address] Nurse Navigator Surgery, Neurosurgery 01/25/25 Tip Campos MD [address] [place] [address] Surgery, Neurosurgery 02/01/25 Magnus Perez MD [address] [place] [phone] Cardiovascular Disease 02/01/25 System, Provider Not In [address] [place] [phone] Hematology Oncology 02/01/25 Miki Blackwood MD [address] [place] [address] Endocrinology 02/01/25 Raúl Pike MD [address] [place] [address] Dr [address] [place] [address] Gastroenterology 02/01/25 Jorge Moreno DO 269 [facility] 201 [place] [address] Immunology 02/01/25 Arturo Bunn MD [address] [place] [address] Otolaryngology 02/01/25 Leatha Mc PA 85 [facility] [address] [place] [address] Physician Railway Head Tender Surgery, Neurosurgery 02/05/25 documented as of this encounter
--- OUTSIDE RECORDS SUMMARY | 2025-04-14 22:49 | XMS_ITS | Clinical Summary ---
Author Organization Formerly [facility] Address [address] [place] [address] Care Team Providers Care Trauma Doctor Name Role Phone Rosalind Vizcarra NP Primary Care Provider Isis Young RN Unavailable Makayla Campos MD Unavailable Magnus Perez MD Unavailable [phone] System, Provider Not In Unavailable Unavaila Miki Diana MD Unavailable [phone] Raúl Pike MD Unavailable [phone] Jorge Moreno DO Unavailable [phone] Arturo Bunn MD Unavailable Leatha Mc Unavailable [phone] Allergies Active Allergy Reactions Criticality Noted [...] with cardiology ( Dr. Manuel Perez) in [place]. Per his recent notes (02/01/25)-Discussed pursuing a [...] Description 04/05/2025 8:00 AM EST Ancillary Procedure [facility] [address] [place] [address] Provider, File Room 04/05/2025 7:55 AM EST Ancillary Procedure [facility] [address] [place] [address] Provider, File Room 04/05/2025 7:55 AM EST Ancillary Procedure [facility] [address] [place] [address] Provider, File Room 03/31/2025 10:00 AM EST Office Visit [facility] [place] [address] [facility] [address] [place] [address] Samara Mendoza PA-C S/P cervical spinal fusion (Primary Dx); Cervical disc disorder with radiculopathy; Lumbar radiculopathy; Degeneration of intervertebral disc of lumbar region with discogenic back pain and lower extremity pain; Fibromuscular dysplasia 03/25/2025 Scanned Document [facility] [address] [place] [address] Samara Mendoza PA-C 03/19/2025 Scanned Document [facility] [address] [place] [address] Makayla Campos MD 03/19/2025 Scanned Document [facility] [address] [place] [address] Makayla Campos MD 03/09/2025 Scanned Document [facility] [address] [place] [address] Leatha Mc PA 03/05/2025 9:00 AM EST Office Visit [facility] [address] [address] Alonzo Root MD Dysphonia (Primary Dx); Laryngeal spasm; Muscle tension dysphonia; History of fusion of cervical spine; Chronic rhinitis; Unilateral partial vocal fold paralysis 02/26/2025 7:38 AM EST - 02/26/2025 11:59 PM EST Hospital Encounter [facility] [address] [place] [address] Samara Mendoza PA-C Dysphagia, unspecified type; S/P cervical spinal fusion Discharge Disposition: Home or Self Care 02/24/2025 1:00 PM EST Evaluation [facility] [address] [address] Leatha Mc PA Falk, Janice, [facility]-DISTRICT REPRESENTATIVE Dysphagia, pharyngeal phase (Primary Dx); S/P cervical spinal fusion 02/24/2025 Plan of Care Documentation [facility] [address] [facility] [place] [address] 02/24/2025 Scanned Document [facility] [place] [address] [facility] [address] [place] [address] Makayla Campos MD 02/19/2025 11:40 AM EDT Ancillary Procedure [facility] [address] [place] [address] Provider, File Room 02/19/2025 11:35 AM EDT Ancillary Procedure [facility] [address] [place] [phone] Provider, File Room 02/19/2025 11:35 AM EDT Ancillary Procedure [facility] [address] [place] [address] Provider, File Room 02/19/2025 10:00 AM EDT Office Visit [facility] [place] [address] [facility] [address] [place] [address] Leatha Mc PA S/P cervical spinal fusion (Primary Dx); Dysphonia; Cervical disc disorder with radiculopathy; Fibromuscular dysplasia 02/17/2025 Scanned Document [facility] [place] [address] [facility] [address] [place] [address] Leatha Mc PA 02/09/2025 Scanned Document [facility] [place] [address] [place] [address] Neurosurgery, Scan 02/05/2025 8:15 AM EDT - 02/05/2025 12:00 PM EDT Surgery [facility] Services [address] [place] [address] Makayla Campos MD ACDF 4-6 02/05/2025 8:13 AM EDT Anesthesia Event [facility] [address] [place] [address] Conrad Jiang MD 02/05/2025 6:14 AM EDT - 02/07/2025 2:04 PM EDT Hospital Encounter [facility] [address] [place] [address] Makayla Campos MD Cervical spondylosis (Primary Dx) Discharge Disposition: Home or Self Care 02/03/2025 Scanned Document [facility] [place] [address] [facility] [address] [place] [address] Samara Mendoza PA-C 02/03/2025 Results Follow-Up [facility] [address] [place] [address] Ginny White PA 02/02/2025 10:30 AM EDT Pre-Admission Testing [facility] [address] [place] [address] Ginny White PA Pre-op evaluation (Primary Dx); Gastroesophageal reflux disease with esophagitis without hemorrhage; Hypoparathyroidism after procedure; Tachycardia, paroxysmal (HCC); Cervical stenosis of spine; Hemochromatosis, unspecified hemochromatosis type; History of asthma; Mitral valve prolapse; Complication of anesthesia, initial encounter; Prediabetes 02/02/2025 9:00 AM EDT Office Visit [facility] [address] [place] [address] Alonzo Root MD Dysphonia (Primary Dx); Cervical disc disorder; Muscle tension dysphonia 01/27/2025 9:00 AM EDT Consult [facility] [address] [place] [address] Makayla Campos MD Cervical disc disorder with radiculopathy (Primary Dx) 01/27/2025 Scanned Document [facility] [address] [place] [address] Makayla Campos MD 01/24/2025 7:30 PM EDT - 01/25/2025 3:33 PM EDT Hospital Encounter [facility] Emergency Department [address] [facility] [place] [address] Jaswinder Valentine MD Alkasir, Amr, MD Khan, Sana, MD Cervical stenosis of spine (Primary Dx); Cervical stenosis of spinal canal; Chest pain Discharge Disposition: Home or Self Care 01/22/2025 11:20 AM EDT Ancillary Procedure [facility] [address] [facility] [place] [address] Provider, File Room 01/22/2025 Scanned Document [id number] [address] [facility] [address] [place] [address] Makayla Campos MD from Last 3 Months [...] any time in the past 12 m ont, were you homeless or living in a jail (including now)? No 02/05/2025 [facility] [...] Department Care Team (Late Contact Info) Description 04/26/2025 1:00 PM EST Office Visit [facility] [place] [address] [facility] [address] [place] [address] Clyde Martin PA [address] [facility] [address] [place] [address] 06/01/2025 10:00 AM EST Office Visit [facility] [place] [address] [facility] [address] [place] [address] Samara Mendoza PA-C 85 [facility] [address] [place] [address] Health Maintenance Due Date Last Done Comments [...] LTG 1 Speech Therapy No Zeina Messer CCC-DISTRICT REPRESENTATIVE Note: Pt will tolerate least restrictive diet without s/s aspiration. ST STG 1 Speech Therapy No Zeina Messer CCC-DISTRICT REPRESENTATIVE Note: Pt will complete an instrumental swallowing evaluation within 2 weeks. Additional goals to be set as indicated. Medical Devices Implanted Type Area Prints And Drawings Curator Device Identifier Shelf Expiration Date Model / Serial / Lot [id number] Plate Spine 37.5mm Bone Valentina Vs Elite - [id number] Implanted:Qty : 1 on 02/05/2025 by Makayla Campos MD at [facility] Plate N/A: Spine Cervical [employer] MINIMALLY INVASIVE T [id number] / / [id number] Screw Bone Spine Cervical Anterior Pavo 14mm Ti 4mm - [id number] Implanted:Qty : 4 on 02/05/2025 by Makayla Campos MD at [facility] Spine N/A: Spine Cervical [employer] MINIMALLY INVASIVE T [id number] / / [id number] Screw Bone Spine Cervical Anterior Pavo 13mm Ti 4mm - [id number] Implanted:Qty : 2 on 02/05/2025 by Makayla Campos MD at [facility] Spine N/A: Spine Cervical [employer] MINIMALLY INVASIVE T [id number] / / [id number] Aalograft Spacer [id number] - [id number] Implanted:Qty : 1 on 02/05/2025 by Makayla Campos MD at [facility] Tissue N/A: Spine Cervical [employer]im 06/02/2027 [id number] / [id number] / [id number] Graft Bone Crstn Asr Lrdtc Canc Aureliano Algrf Spcr [id number] - [id number] Implanted:Qty : 1 on 02/05/2025 by Makayla Campos MD at [facility] Tissue N/A: Spine Cervical [employer] MINIMALLY INVASIVE T 05/25/2027 [id number] / [id number] / [id number] Procedures Procedure Name Priority Date/Time Associated Diagnosis Comments XR CERVICAL SPINE W/FLEX+EXT 6+ VIEWS Routine 04/08/2025 4:14 PM EST Neck pain CT CHEST ARCHIVE FOR REFERENCE ONLY Routine [...] ANES INTUBATION Routine 02/05/2025 9:05 AM EDT MD ARTHRD ANT INTERBODY DECOMPRESS CERVICAL BELW C2 [...] * XR Cervical spine w/flex+ext 6+ views (04/08/2025 4:14 PM EST) Only the most recent of3 resultswithin the time period is included. Anatomical Region Laterality Modality C-spine Computed Radiogr aphy 04/08/2025 3:45 PM EST 04/08/2025 3:45 PM EST Impressions 04/14/2025 10:11 AM EST Postoperative changes in good position. Minimal subluxations are seen. No instability is present Electronically signed by: Juan Moran MD 04/14/2025 10:11 AM EST RP Thank you for referring your patient to us, Juan Moran MD [phone] (Electronically Signed - 04/14/2025 10:11) Copy: PATIENT , Narrative 04/14/2025 10:11 AM EST EXAMINATION: XR CERVICAL SPINE CLINICAL INFORMATION: Cervicalgia. COMPARISON: X-ray cervical spine 04/04/2025 TECHNIQUE: AP, lateral, both oblique, and open mouth odontoid views of the cervical spine. Flexion and extension lateral views were also obtained FINDINGS: Postoperative changes seen anteriorly from C4 through C6 with plate and screws as well as disc spacer devices. Positioning appears good. There is no malalignment. Minimal subluxation is seen with C3 to anterior to C3 by 1 to 2 mm. Mild arthropathy is seen in the facets. At C7-T1 there is a minimal subluxation present with C7 anterior to T1 by 2 mm. This is also unchanged. There appears to be prominent arthropathy in the facets at this level also unchanged. On flexion and extension views no instability is seen. On the oblique views there is slight narrowing of the left neural foramina at C4-5 and C5-6. No narrowing is seen on the right. Procedure Note Juan Moran MD - 04/14/2025 EXAMINATION: XR CERVICAL SPINE CLINICAL INFORMATION: Cervicalgia. COMPARISON: X-ray cervical spine 04/04/2025 TECHNIQUE: AP, lateral, both oblique, and open mouth odontoid views of the cervicalspine. Flexion and extension lateral views were also obtained FINDINGS: Postoperative changes seen anteriorly from C4 through C6 with plate andscrews as well as disc spacer devices. Positioning appears good. There isno malalignment. Minimal subluxation is seen with C3 to anterior to C3 by1 to 2 mm. Mild arthropathy is seen in the facets. At C7-T1 there is a minimal subluxation present with C7 anterior to T1 by2 mm. This is also unchanged. There appears to be prominent arthropathy inthe facets at this level also unchanged. On flexion and extension views no instability is seen. On the oblique views there is slight narrowing of the left neural foraminaat C4- 5 and C5-6. No narrowing is seen on the right. IMPRESSION: Postoperative changes in good position. Minimal subluxations are seen. Noinstability is present Electronically signed by: Juan Moran MD 04/14/2025 10:11 AM EST RPWorkstation: [id number] Thank you for referring your patient to us, Juan Moran MD [phone] (Electronically Signed - 04/14/2025 10:11) Copy: PATIENT , Lambert MOSS IMG DIAGNOSTIC IMAGING ORDERABLE S Final Result * CR Spine Archive for Reference only (04/05/2025 7:54 AM EST) Narrative RACHEL - 04/05/2025 7:54 AM EST This study has been auto finalized and does not contain a result. us File Room Provider IMG DIGITIZE FILMS Final Resu lt Performing Organization Address [facility] de Phone Number RACHEL [phone] * CT Chest Archive for Reference Only (04/05/2025 7:54 AM EST) Only the most recent of2 resultswithin the time period is included. Narrative RACHEL - 04/05/2025 7:54 AM EST This study has been auto finalized and does not contain a result. us File Room Provider IMG DIGITIZE FILMS Final Resu lt Performing Organization Address [facility] de Phone Number RACHEL [phone] * XR Lumbar spine complete w/bending 6+ [...] your patient to us, Minh Nayak MD [phone] (Electronically Signed - 03/17/2025 15:47) Copy: ROSALIND VIZCARRA [facility] [address] [place] [address] Narrative 03/17/2025 3:47 PM EST EXAMINATION: XR [...] Nayak MD 03/17/2025 03:47 PM EST RPWorkstation: [id number] Thank you for referring your patient to us, Minh Nayak MD [phone] (Electronically Signed - 03/17/2025 15:47) Copy: ROSALIND VIZCARRA NP [facility] [address] [place] [address] us Leatha MOSS IMG DIAGNOSTIC IMAGING ORDERAB LES Final Result * [place] Modified barium swallow w/speech (02/26/2025 8:56 AM EST) Anatomical Region Laterality Modality Radio Fluoroscop y 02/26/2025 8:21 AM EST Impressions 02/26/2025 4:44 PM EST 1. No aspiration or penetration with tested consistencies. 2. Please see speech language therapist's note for further details. Interpreted by: Manuel Shabazz MD Change Management Facilitator I personally reviewed the images and the [...] further details. Interpreted by: Manuel Shabazz MD Change Management Facilitator I personally reviewed the images and the [...] Juan Moran MD 03/01/2025 05:56 PM EST RP Thank you for referring your patient to us, Juan Moran MD [phone] (Electronically Signed - 03/01/2025 17:56) Copy: MAKAYLA CAMPOS [facility]- [facility]- [place] [address] [facility] [address] [place] [address] ROSALIND VIZCARRA TOP EDGE BEVELER [facility] [address] [place] [address] PATIENT , Narrative 03/01/2025 5:56 PM EST [...] Moran MD 03/01/2025 05:56 PM EST RPWorkstation: [id number] Thank you for referring your patient to us, Juan Moran MD [phone] (Electronically Signed - 03/01/2025 17:56) Copy: MAKAYLA CAMPOS [facility] [place] [address] [place] [address] ROSALIND VIZCARRA NP [facility] [address] [place] [id number] PATIENT , us Leatha MOSS IMG DIAGNOSTIC IMAGING ORDERAB LES Final Result * CT Head Archive for Reference Only (02/19/2025 11:33 AM EDT) Only the most recent of2 resultswithin the time period is included. [facility] [place] - 02/19/2025 11:33 AM EDT This study has been auto finalized and does not contain a result. us File Room Provider IMG DIGITIZE FILMS Final Resu lt Performing Organization Address [facility] de Phone Number RACHEL [phone] * MR Head Archive for Reference Only (02/19/2025 11:32 AM EDT) [facility] [place] - 02/19/2025 11:32 AM EDT This study has been auto finalized and does not contain a result. us File Room Provider IMG DIGITIZE FILMS Final Resu lt Performing Organization Address [facility] de Phone Number RACHEL [phone] * XR Chest 1 view-Portable (02/06/2025 6:08 [...] hand Insertion attempts: 1 Conrad Jiang MD MD ANESTHESIA Final Result * ANES INTUBATION (02/05/2025 [...] Dentition: same as baseline Complications: no complications Conrad Jiang MD MD ANESTHESIA Final Result * POCT , Urine (02/05/2025 6:48 AM EDT) Preg Test, Ur Negative Negative Lot Number [id number] Stage Set Designer Pass Pass Urine 02/05/2025 6:48 AM EDT us Conrad Jiang MD POINT OF CARE TEST ORD ERABLES Final Result * Type and Screen (02/05/2025 6:34 AM EDT) Only the most recent of2 resultswithin the time period is included. ABO/Rh A NEGATIVE 02/05/2025 8:37 AM EDT [facility] Antibody Screen NEGATIVE 8:37 AM EDT [facility] Specimen Expiration 02/08/2025 02/05/2025 8:37 AM EDT [facility] Blood Blood specimen / Unknown 02/05/2025 6:34 AM EDT 02/05/2025 7:26 AM EDT Lambert MOSS BLOOD BANK TEST ORDERABLES Final Result Performing Organization Address [facility] [place] [address], [place] [address] * (ABNORMAL) Hemoglobin A1c with Estimated Average Glucose (02/02/2025 11:39 AM EDT) Hemoglobin A1C 5.7(H) <5.7 % 02/03/2025 4:30 AM EDT [facility] Comment: A1c% Interpretation 5.7 - 6.0 Increase risk of diabetes 6.1 - 6.4 Higher risk of diabetes > or = 6.5 Consistent with diabetes Diabetes Care, 33(Supp 1):S1-S61, 2010 Estimated Average Glucose 117 mg/dL 02/03/2025 4:30 AM EDT [facility] Blood Blood specimen / Unknown 02/02/2025 11:39 AM EDT 02/02/2025 8:26 PM EDT Ginny MOSS LAB BLOOD ORDERABLES Final Resul t [address] [place] [address], [address] [address] * MRSA PCR Screen, Qualitative: (02/02/2025 11:39 AM EDT) MRSA Result Not Detected Not Detected 10:27 PM EDT [facility] Comment:Performed by the Xpe rt MRSA NxG Assay Swab, Anterior Nares Specimen from nose / Unknown 02/02/2025 11:39 AM EDT 02/02/2025 8:25 PM EDT Ginny MOSS MICROBIOLOGY - GENERAL ORDERABLE S Final Result Performing Organization Address [facility] [place] [address], [address] [address] * Partial Thromboplastin Time (PTT) (02/02/2025 11:39 AM EDT) Pathologist [facility] Anticoagulant Information not given 02/02/2025 10:32 AM EDT [facility] Partial Thromboplastin Time (PTT) 25 25 - 36 seconds 02/02/2025 8:44 PM EDT [facility] Blood Blood specimen / Unknown 02/02/2025 11:39 AM EDT 02/02/2025 8:26 PM EDT Ginny MOSS LAB BLOOD ORDERABLES Final Resul t Performing Organization Address [facility]/ZIP [place] [address], [address] [address] * Protime-INR (02/02/2025 11:39 AM EDT) Pathologist [facility] Anticoagulant Information not given 02/02/2025 10:32 AM EDT [facility] Prothrombin Time (PT) 10.8 10.0 - 13.5 seconds 02/02/2025 8:44 PM EDT [facility] INR 0.9 02/02/2025 8:44 PM EDT [facility] Comment:INR Therapeutic Rang es: Standard dose anticoagulant 2.0 to 3.0, High dose anticoagulant 2.5-3.5. Blood Blood specimen / Unknown 02/02/2025 11:39 AM EDT 02/02/2025 8:26 PM EDT us Ginny Otoo PA LAB BLOOD ORDERABLES Final Resul t Performing Organization Address [facility] Co de Phone Number [address] [address], [address] [address] * Transferrin (02/02/2025 11:39 AM EDT) Transferrin 209 200 - 360 mg/dL 02/02/2025 8:50 PM EDT [facility] Blood Blood specimen / Unknown 02/02/2025 11:39 AM EDT 02/02/2025 8:26 PM EDT us Ginny Otoo PA LAB BLOOD ORDERABLES Final Resul t Performing Organization Address [facility] Co de Phone Number [address] [address], [address] [address] * Prealbumin (02/02/2025 11:39 AM EDT) Prealbumin 33 20 - 40 mg/dL 02/02/2025 8:50 PM EDT [facility] Blood Blood specimen / Unknown 02/02/2025 11:39 AM EDT 02/02/2025 8:26 PM EDT us Ginny Otoo PA LAB BLOOD ORDERABLES Final Resul t Performing Organization Address [facility] Co de Phone Number [address] [address], [address] [address] * LAB RESULT (02/01/2025) us Scan Primary Care HX AMB PROCEDURES Final Result * (ABNORMAL) High Sensitivity Troponin T (Once) (01/25/2025 3:31 AM EDT) Only the most recent of4 resultswithin the time period is included. [facility] High Sensitivity Troponin T 38(H) <15 ng/L 01/25/2025 4:07 AM EDT [facility] Delta (Change) 13(H) <3 01/25/2025 4:07 AM EDT [facility] Comment:Decreased Blood Blood specimen / Unknown 01/25/2025 3:31 AM EDT 01/25/2025 3:35 AM EDT us Zaira Stewart MD LAB BLOOD ORDERABLES [place] [address], [place] [address] * ECG 12 lead (01/25/2025 2:58 AM EDT) Only the most recent of2 resultswithin the time period is included. [facility] Ventricular rate 99 BPM EKG [facility] Atrial rate 99 BPM EKG [facility] P-R interval 182 ms EKG [facility] QRS duration 88 ms EKG [facility] Q-T interval 344 ms EKG [facility] QTC calculation (Bazett) 442 ms EKG [facility] P axis 60 degrees EKG [facility] R axis -52 degrees EKG [facility] T axis 30 degrees EKG [facility] 01/25/2025 2:58 AM EDT Narrative EKG [facility] - 01/25/2025 12:02 PM EDT Normal sinus [...] was found Confirmed by MD Forte Eric ([id number]) on 01/25/2025 12:02:53 PM us Jaswinder Valentine MD ECG ORDERABLES Final Result Performing Organization Address City/[facility]/ZIP Co de Phone Number EKG [facility] * Magnesium (01/24/2025 11:49 PM EDT) [facility] Magnesium 2.1 1.6 - 2.7 mg/dL 01/25/2025 2:44 AM EDT [facility] 01/24/2025 11:4 9 PM EDT 01/25/2025 12:01 AM EDT Jaswinder Valentine MD LAB BLOOD ORDERABLES Final Res ult Performing Organization Address [facility] [place] [address], [place] [address] * MRI Cervical spine w/o contrast (01/24/2025 10:41 PM EDT) Anatomical Region Laterality Modality C-spine Magnetic Resonan ce 01/24/2025 9:42 PM EDT Addenda Addendum by Capo Constantino MD on 01/26/2025 8:50 AM EDT ADDENDUM #1 Results Acknowledgement: This was communicated to Dr. Jaswinder Valentine by a physician sales support specialist at 11:25 PM on 01/24/2025. Impressions 01/24/2025 [...] to Dr. Jaswinder Valentine by a physician sales support specialist at 11:25 PM on 01/24/2025. Impressions 01/24/2025 [...] 4.0 - 11.0 Thou/uL 01/24/2025 9:07 PM [facility] Platelet Count 364 150 - 450 Thou/uL 01/24/2025 9:07 PM [facility] Hemoglobin 15.2 11.7 - 15.7 g/dL 01/24/2025 9:07 PM [facility] Hematocrit 45.1 35.0 - 47.0 % 01/24/2025 9:07 PM [facility] Red Blood Cell Count 5.10 4.00 - 5.40 Mil/uL 01/24/2025 9:07 PM [facility] MCV 88 80 - 100 fL 01/24/2025 9:07 PM [facility] MCH 29.8 26.0 - 34.0 pg 01/24/2025 9:07 PM [facility] MCHC 33.7 30.0 - 36.0 g/dL 01/24/2025 9:07 PM [facility] RDW 14.1 11.5 - 14.5 % 01/24/2025 9:07 PM [facility] MPV 10.0 7.5 - 12.5 fL 01/24/2025 9:07 PM [facility] Neutrophils Auto 65.3 % 01/25/20 9:07 PM EDT [facility] Immature Granulocytes 1.0 % 01/24/2025 9:07 PM EDT [facility] Lymphocytes Auto 24.4 % 01/25/20 9:07 PM EDT [facility] Monocytes Auto 7.8 % 01/24/2025 9:07 PM EDT [facility] Eosinophils Auto 0.6 % 01/25/20 9:07 PM EDT [facility] Basophils Auto 0.9 % 01/24/2025 9:07 [facility] Abs Neutrophils Auto 6.04 2.00 - 7.50 Thou/uL 01/24/2025 9:07 PM EDT [facility] Abs Immature Granulocytes 0.09 0.00 - 0.10 Thou/uL 01/24/2025 9:07 PM EDT [facility] Abs Lymphocytes Auto 2.26 1.50 - 4.50 Thou/uL 01/24/2025 9:07 [facility] Abs Monocytes Auto 0.72 0.20 - 1.50 Thou/uL 01/24/2025 9:07 PM [facility] Abs Eosinophils Auto 0.06 0.00 - 0.70 Thou/uL 01/24/2025 9:07 [facility] Basophils Auto 0.08 0.00 - 0.20 Thou/uL 01/24/2025 9:07 PM [facility] Blood Blood specimen / Unknown 01/24/2025 8:06 PM EDT 01/24/2025 8:57 PM EDT us Jaswinder Valentine MD LAB BLOOD ORDERABLES Final Res ult [address] [address], [address] [address] * (ABNORMAL) Comprehensive Metabolic Panel (01/24/2025 8:06 PM EDT) Pathologist [facility] Glucose 101(H) 65 - 99 mg/dL 01/24/2025 9:59 PM [facility] Comment:Fasting: <100 mg/dL, Non-Fasting: <200 mg/dL (ADA 2004) Blood Urea Nitrogen (BUN) 23(H) 8 - 21 mg/dL 01/24/2025 9:59 PM [facility] Creatinine 0.78 0.40 - 1.10 mg/dL 01/24/2025 9:59 PM [facility] eGFR >90 >59 01/24/2025 9:59 PM [facility] Comment:CKD-EPI (2020) in mL /min/1.73 sq meters. Sodium 141 136 - 145 mmol/L 01/24/2025 9:59 PM [facility] Potassium 3.8 3.4 - 5.3 mmol/L 01/24/2025 9:59 PM [facility] Chloride 108(H) 98 - 107 mmol/L 01/24/2025 9:59 PM [facility] CO2 23 22 - 33 mmol/L 01/24/2025 9:59 PM [facility] Calcium 9.3 8.7 - 10.5 mg/dL 01/24/2025 9:59 PM [facility] Alkaline Phosphatase 59 32 - 122 U/L 01/24/2025 9:59 PM [facility] Aspartate Aminotrans (AST) 15 10 - 50 U/L 01/24/2025 9:59 PM [facility] Alanine Aminotrans (ALT) 17 10 - 50 U/L 01/24/2025 9:59 PM [facility] Bilirubin, Total <0.2(L) 0.2 - 1.0 mg/dL 01/24/2025 9:59 PM [facility] Protein, Total 6.6 6.3 - 8.3 g/dL 01/24/2025 9:59 PM [facility] Albumin 4.1 3.5 - 5.0 g/dL 01/24/2025 9:59 PM [facility] BUN/Creatinine Ratio 29(H) 10.0 - 25.0 Ratio 01/24/2025 9:59 PM [facility] Globulin 2.5 1.5 - 3.9 g/dL 01/24/2025 9:59 PM EDT [facility] Albumin/Globulin Ratio 1.6 1.0 - 3.0 Ratio 01/24/2025 9:59 PM EDT [facility] Anion Gap 10 7 - 17 01/24/2025 9:59 PM EDT [facility] Blood Blood specimen / Unknown 01/24/2025 8:06 PM EDT 01/24/2025 8:57 PM EDT Jaswinder Valentine MD LAB BLOOD ORDERABLES Final Res ult Performing Organization Address [facility]/ZIP Co de Phone Number [address] [address], [address] [address] * MR Spine Archive for Reference Only (01/22/2025 11:15 AM EDT) Narrative RACHEL - 01/22/2025 11:15 AM EDT This study has been auto finalized and does not contain a result. us File Room Provider IMG DIGITIZE FILMS Final Resu lt Performing Organization Address City/[facility]/ZIP Co de Phone Number RACHEL [phone] from Last 3 Months Insurance Advance Directives * Full Code (Latest [...] 12:17 PM 03/03/2024 9:09 PM Care Teams Trauma Doctor Relationship Specialty Start Date End Date Rosalind Vizcarra NP [address] [place] [address] PCP - General Family Medicine 03/03/24 Isis Young RN 80 [place] [address] Nurse Navigator Surgery, Neurosurgery 01/25/25 Makayla Campos MD [address] [address] Surgery, Neurosurgery 02/01/25 Magnus Perez MD [address] [place] [phone] Cardiovascular Disease 02/01/25 System, Provider Not In [address] [place] [phone] Hematology Oncology 02/01/25 Miki Blackwood MD [address] [place] [address] Endocrinology 02/01/25 Raúl Pike MD [address] [place] [address] Gastroenterology 02/01/25 Jorge Moreno DO 269 [facility] 201 [place] [address] Immunology 02/01/25 Arturo Bunn MD [address] [place] [address] Otolaryngology 02/01/25 Leatha Mc PA [address] [place] [address] [place] [address] Physician Hotel Registration Clerk Surgery, Neurosurgery 02/05/25
--- OUTSIDE RECORDS SUMMARY | 2025-04-14 22:49 | XMS_ITS | Encounter Summary ---
Author Organization [facility] Address [address] [place] [address] Care Team Providers Care Paraoptometric Name Role Phone Brett Sharma NP Primary Care Provider + [phone] Isis Young RN Unavailable Tip Campos MD Unavailable [phone] Magnus Perez MD Unavailable [phone] System, Provider Not In Unavailable Unavaila Miki Diana MD Unavailable [phone] Raúl Pike MD Unavailable [phone] Jorge Moreno DO Unavailable [phone] Arturo Bunn MD Unavailable Leatha Mc Unavailable [phone] Encounter Details Date Type Department Care Team (Late st Contact Info) Description 02/17/2025 Scanned Document [facility] Neurosurgery [address] [phone] Leatha Mc PA [address] [address] Social History Tobacco Use Types [...] time in the past 12 m [facility], were you homeless or living in a halfway (including now)? No 02/05/2025 [facility] Utilities Answer Date Recorded In the past [...] Description 04/26/2025 1:00 PM EST Office Visit [facility] Plastic & Reconstructive Surgery [address] [place] [address] Clyde Martin PA 399 [facility] 210 [place] [address] 06/01/2025 10:00 AM EST Office Visit [facility] Neurosurgery [place] 85 [facility] [address] [place] [phone] Samara Mendoza PA-C [address] [address] documented as of this encounter Visit Diagnoses Not on filedocumented in this encounter Care Teams Paraoptometric Relationship Specialty Start Date End Date Brett Shrama NP [address] [place] [address] PCP - General Family Medicine 03/03/24 Isis Young, DANE [address] [place] [address] Nurse Navigator Surgery, Neurosurgery 01/25/25 Tip Campos MD [address] [place] [address] Surgery, Neurosurgery 02/01/25 Magnus Perez MD [address] [place] [phone] Cardiovascular Disease 02/01/25 System, Provider Not In [address] [place] [phone] Hematology Oncology 02/01/25 Miki Blackwood MD [address] [place] [address] Endocrinology 02/01/25 Raúl Pike MD [address] [place] [address] 102 [place] [address] Gastroenterology 02/01/25 Jorge Moreno DO 269 [facility] 201 [place] [address] Immunology 02/01/25 Arturo Bunn MD [address] [place] [address] Otolaryngology 02/01/25 Leatha Mc PA [address] [place] [address] 100[address] [place] [address] Physician [place]vel Mill Operator Surgery, Neurosurgery 02/05/25 documented as of this encounter
--- OUTSIDE RECORDS SUMMARY | 2025-04-14 22:50 | XMS_ITS | Encounter Summary ---
Author Organization [facility] Address [address] [address] Phone Care Team Providers Care Integrated Pest Management Technician Name Role Phone Pcp, Not Required Primary Care Provider Arturo Castillo MD, PhD Unavailable [phone] Rylee Zendejas GAUGE CONTROLLER Primary Care Provider Unknown, Unknown Primary Care Provider Rylee Sanchez GAUGE CONTROLLER Primary Care Provider Brett Shrama GAUGE CONTROLLER Primary Care Provider + Reason for Referral * Consultation (Elective) - Closed Specialty Diagnoses / Procedures Referred By Contact Referred To Contact Pediatric Gastroenterology Diagnoses Non-celiac gluten sensitivity System, Provider Not In, PhD [address] [address] Referral ID Status Reason Start Date Expiration Date Visits Re quested Visits Authorized [id number] Closed 08/24/2016 08/24/2017 1 1 Encounter Details Date Type Department Care Team (Late st Contact Info) Description 08/24/2016 Transcribe Orders [facility] [address] [place] [address] Pcp, Not Required Non-celiac gluten sensitivity (Primary [...] Description 04/29/2025 10:30 AM EST Office Visit [facility] 55 [facility], 5th [place] [address] Ranjit Morley MD [address] [address] [email or web address] 05/18/2025 8:45 AM EST Evaluation [facility] [address] [place] [address] Charissa Lew AuD [address] [place] [address] [email or web address] 05/18/2025 9:30 AM EST Office Visit [facility] [address] [place] [address] Arturo Bunn MD, PhD [address] [place] [address] [email or web address] 06/08/2025 3:00 PM EST Office Visit [facility] 15 [facility], [address] [place] [address] Miki Blackwood MD 55 [facility] [address] [place] [address] [email or web address] 08/27/2025 9:10 AM EDT Office Visit [facility] 70 [place] [address] Pooja Jacob MD [address] [place], [place] [address] [place] [address] [email or web address] 09/24/2025 10:30 AM EDT Office Visit [facility] Card[facility] 52 [facility], [address] [place] [address] Magnus Perez MD [address] [address] [email or web address] Scheduled Referrals Name Type Priority Associated Diagnoses Orde r Schedule Ambulatory referral to [facility] Pediatric GI/Nutrition Outpatient Referral Routine Non-celiac gluten sensitivity Ordered: 08/24/2016 documented as of this encounter Visit Diagnoses Diagnosis Non-celiac gluten sensitivity- Primary Intestinal malabsorption, unspecified type documented in this encounter Care Teams Integrated Pest Management Technician Relationship Specialty Start Date End Date Pcp, Not Required PCP - General 08/24/16 04/26/19 Rylee Zendejas NP [address] [place] [address] [email or web address] PCP - General Family Medicine 04/27/19 06/15/19 Unknown, Cesario, [address] [place] [address] PCP - General 06/16/19 06/22/19 Rylee Zendejas NP [address] [place] [address] [place] [address] [email or web address] PCP - General Family Medicine 06/23/19 08/15/21 Brett Sharma NP [address] [place] [address] [place] [address] PCP - General Family Medicine 08/16/21 Arturo Lawrence MD, PhD 55 [facility] Out[facility] [address] [place] [address] [email or web address] Hematology and Oncology 07/06/17 documented as of this encounter Additional Source Comments The information contained in this document represents components of the legal health record. It is not the complete legal health record.[facility]
--- OUTSIDE RECORDS SUMMARY | 2025-04-14 22:50 | XMS_ITS | Encounter Summary ---
Author Organization [facility] Address [address] [place] [address] Phone Care Team Providers Care Civil Engineer Name Role Phone Arturo Lawrence MD, PhD Unavailable [phone] Brett Sharma NP Primary Care Provider + Encounter Details Date Type Department Care Team (Late st Contact Info) Description 06/21/2023 Procedure Pass [facility] Cardiology [address] [facility] [place] [phone] Social History Tobacco Use Types Packs/Day Years [...] Description 04/29/2025 10:30 AM EST Office Visit [facility] 55 [facility], 5th [place] [address] Ranjit Morley MD [address] [address] [email or web address] 05/18/2025 8:45 AM EST Evaluation [facility] [address] [place] [address] Charissa Lew AuD [address] [place] [address] [email or web address] 05/18/2025 9:30 AM EST Office Visit [facility] [address] [place] [address] Arturo Bunn MD, PhD [address] [place] [address] [email or web address] 06/08/2025 3:00 PM EST Office Visit [facility] 15 [facility], [address] [place] [address] Miki Blackwood MD 55 [facility] [address] [place] [address] [email or web address] 08/27/2025 9:10 AM EDT Office Visit [facility] 70 [place] [address] Pooja Jacob MD [address] [address] [email or web address] 09/24/2025 10:30 AM EDT Office Visit [facility] Clinic [address] [facility] [place] [address] Magnus Perez MD 55 [facility] [address] [place] [address] [email or web address] documented as of this encounter Visit Diagnoses Not on filedocumented in this encounter Care Teams Civil Engineer Relationship Specialty Start Date End Date Brett Sharma NP [address] [place] [address] PCP - General Family Medicine 08/16/21 Arturo Lawrence MD, PhD 55 [facility] Out[facility] Care[facility] [address] [place] [address] [email or web address] Hematology and Oncology 07/06/17 documented as of this encounter Additional Source Comments The information contained in this document represents components of the legal health record. It is not the complete legal health record.[facility]
[2025-04-14 22:58] LABS: Alanine Aminotransferase 30 U/L (0-31); Albumin Level 4.2 g/dL (3.5-5.0); Alkaline Phosphatase 53 U/L (39-117); Anion Gap 11 (12-20); Aspartate Amino Transferase 19 U/L (5-31); Blood Urea Nitrogen 20 mg/dL (9-16); Calcium 9.1 mg/dL (8.4-10.2); Carbon Dioxide 23 mmol/L (22-29); Chloride 108 mmol/L (96-108); Creatinine Clr Calc Pharmacy 88.9; Estimated Glomerular Filt Rate > 60; Lipase 122 U/L (8-78); Magnesium 2.3 mg/dL (1.6-2.6); Potassium 4.2 mmol/L (3.3-5.1); Sodium 138 mmol/L (135-145); Total Protein 6.6 g/dL (6.5-8.0)
[2025-04-14 23:05] VITALS: PULSE 68
[2025-04-14 23:11] LABS: NT Pro B Type Natriuretic Pept 46.6 pg/mL (<300)
[2025-04-14 23:13] LABS: Troponin-I High Sensitivity < 2.7 ng/L (<3.5-17.0)
[2025-04-14 23:17] LABS: Appearance Urine Clear; Glucose Urine UA Negative (Negative); PH 5.5 (5.0-9.0); Specific Gravity - Urine 1.020 (1.005-1.025)
[2025-04-14 23:19] LABS: Resp Syncy Virus RNA Qual PCR NEGATIVE (Negative); SARS COV2 PCR INHOUSE NEGATIVE (Negative)
--- NOTE | 2025-04-14 23:52 | ED.CHESTPAIN ---
HPI - Chest Pain General Chief Complaint: Chest Pain Stated Complaint: sob, cp started today, leg pain for days Time Seen by Provider: 04/14/25 22:40 Source: patient, family, RN notes reviewed and old records reviewed Mode of arrival: ambulatory Limitations: no limitations History of Present Illness ED Provider: Francia HPI narrative: 49-year-old female past medical history significant for thyroid cancer status post thyroidectomy, recent cervical spinal fusion, asthma, hemochromatosis, hyperlipidemia fibromuscular dysplasia, prediabetes presents for evaluation of cough and shortness of breath. She reports that she has been sick for the last 3 weeks. She is diagnosed with RSV on 03/29/2025. She was seen here on 04/04/2025 for similar symptoms, at the time she had a CT angiography that ruled out PE, there was no evidence of pneumonia at that time. The patient reports that she did take 3 days' worth of azithromycin and is now on Omnicef for a sinus infection. She reports feeling increased shortness of breath and cough. She would not take her temperature. she reports that she has pitting edema to left lower extremity which she feels is new for her she also has some abdominal discomfort which she feels may be related to her persistent coughing. She has not had any nausea or vomiting, she is passing flatus in her last bowel movement was earlier today. Denies any burning with urination or urinary frequency Related Data Home Medications ?Medication ?Instructions ?Recorded ?Confirmed esomeprazole magnesium 40 mg 40 mg PO DAILY@0630 06/27/23 04/08/25 capsule,delayed release levothyroxine 125 mcg tablet 125 mcg PO DAILY@0600 07/23/24 04/08/25 montelukast 10 mg tablet 10 mg PO DAILY 09/08/24 04/08/25 (Singulair) acyclovir 200 mg capsule 200 mg PO QID PRN Outbreak 02/01/25 04/08/25 acetaminophen 325 mg tablet 975 mg PO Q6H PRN Pain 04/05/25 04/08/25 (Tylenol) albuterol 90 mcg-budesonide 80 2 inh inhalation Q4H PRN Shortness 04/05/25 04/08/25 mcg/actuation HFA aerosol inhaler Of Breath Or Wheezing (Airsupra) albuterol sulfate 2.5 mg/3 mL 2.5 mg inhalation Q4H PRN 04/05/25 04/08/25 (0.083 %) solution for nebulization Shortness Of Breath Or Wheezing baclofen 10 mg tablet 10 mg PO TID PRN muscle spasm 04/05/25 04/08/25 calcium carbonate (Calcium 500) 500 mg PO DAILY 04/05/25 04/08/25 carboxymethylcellulose sodium 1 % 1 drp ophthalmic (eye) BID PRN Dry 04/05/25 04/08/25 eye liquid gel drops Eye(S) cholecalciferol (vitamin D3) 50 50 mcg PO DAILY 04/05/25 04/08/25 mcg (2,000 unit) tablet (Vitamin D3) cyclosporine 0.05 % eye drops in a 1 drp ophthalmic (eye) BID 04/05/25 04/08/25 dropperette (Restasis) fluticasone fur. 200 mcg-umeclid 1 inh inhalation BEDTIME 04/05/25 04/08/25 62.5 mcg-vilant 25 mcg inhalat.powder (Trelegy Ellipta) methylprednisolone 4 mg tablet 20 mg PO BID@0900,1100 04/05/25 04/08/25 psyllium 1 packet PO TID PRN Constipation 04/05/25 04/08/25 Previous Rx's ?Medication ?Instructions ?Recorded benzonatate 100 mg capsule 100 mg PO TID #20 caps 04/05/25 dextromethorphan-guaifenesin 30 2 tab PO BID #20 tabs 04/05/25 mg-600 mg tablet extended [id number] hr (Mucus DM) buspirone 7.5 mg tablet 7.5 mg PO BID 30 days #60 tabs 04/08/25 ipratropium 0.5 mg-albuterol 3 mg 3 ml inhalation Q6-8H PRN wheezing 04/08/25 (2.5 mg base)/3 mL nebulization #180 mL soln Allergies Allergy/AdvReac Type Severity Reaction Status Date / Time hydrocodone (HYDROCODONE) Allergy Intermediate HIVES Verified 04/14/25 22:27 amoxicillin (Augmentin) Allergy Unknown unknown Verified 04/14/25 22:27 chlorhexidine Allergy Unknown unknown Verified 04/14/25 22:27 clavulanic acid (Augmentin) Allergy Unknown unknown Verified 04/14/25 22:27 doxycycline Allergy Unknown anaphylaxis Verified 04/14/25 22:27 ibuprofen (IBUPROFEN) Allergy Unknown HIVES Verified 04/14/25 22:27 meperidine (Demerol) Allergy Unknown unknown Verified 04/14/25 22:27 morphine (MORPHINE) Allergy Unknown HIVES Verified 04/14/25 22:27 cephalexin (From Keflex) Allergy Anaphylaxis Verified 04/14/25 22:27 cinnamon Allergy Anaphylaxis Verified 04/14/25 22:27 latex Allergy Unknown Verified 04/14/25 22:27 lidocaine (From LidoPatch) Allergy Rash Verified 04/14/25 22:27 menthol (From LidoPatch) Allergy Rash Verified 04/14/25 22:27 mupirocin Allergy Rash Verified 04/14/25 22:27 prednisone Allergy neuropathy Verified 04/14/25 22:27 strawberry Allergy Anaphylaxis Verified 04/14/25 22:27 oxycodone (From PERCOCET) AdvReac Unknown HIVES Verified 04/14/25 22:27 Review of Systems Constitutional: Constitutional: Denies body ache(s), Denies chills, Denies fever(s) and Denies headache(s) Eyes: Eyes: Denies blurry vision ENT: Denies vertigo, Denies dizziness and Denies headache(s) Cardiovascular: Cardiovascular: Reports leg edema, Reports dyspnea and Reports dyspnea on exertion Respiratory: Respiratory: Denies change in phlegm color, Reports chest congestion, Reports cough, Reports pain with cough, Reports dyspnea and Reports dyspnea on exertion Gastrointestinal: Gastrointestinal: Reports abdominal pain, Denies nausea and Denies vomiting Musculoskeletal: Musculoskeletal: Denies back pain Integumentary/Breasts: Skin/Breast: Denies rash Neurologic: Denies vertigo, Denies dizziness and Denies headache(s) Psychiatric: Psychiatric: Reports anxiety PMFSH Past Medical History Medical History Degenerative lumbar disc Neck pain with history of cervical spinal surgery Degenerative cervical disc Foraminal stenosis of cervical region Fibromuscular dysplasia of carotid artery Tinnitus Hearing loss Hernia GERD (gastroesophageal reflux disease) Thyroid cancer Elevated liver function tests Barretts esophagus Enlarged thyroid MVP (mitral valve prolapse) Fibroadenoma of left breast Renal cyst Hepatic hemangioma Hepatic adenoma Asthma Hemochromatosis Nodular thyroid disease Surgical History Hx of prior ablation treatment Hx of partial thyroidectomy History of esophagogastroduodenoscopy (EGD) H/O colonoscopy H/O thyroidectomy History of tonsillectomy and adenoidectomy History of section Family History Family History Father HTN (hypertension) Type 2 diabetes mellitus High cholesterol Ulcerative colitis Mother Pulmonary embolism Multiple myeloma Maternal Grandmother Diabetes mellitus CVD (cardiovascular disease) Maternal Grandfather CVD (cardiovascular disease) Paternal Grandfather Substance use disorder Paternal Grandmother Uterine cancer Maternal Uncle CVD (cardiovascular disease) Substance use disorder Sister No problems noted. Son No problems noted. Daughter No problems noted. Social History Social History Household Members: Spouse and Children Housing: House Alcohol intake: current Alcohol intake frequency: holidays/special occasions only Patient Tobacco Use Status: Never used Tobacco e-Cigarette/Vaping Use: Never Used Second Hand Smoke Exposure: No Advance Directives: Yes Advance Directives on File: Yes Advance Directives Date on File: 04/06/25 Do you have a plan to hurt others: No Plan service: No Current occupational status: employed Current occupation: [employer] Current occupational exposures/hazards: No Cognitive needs: No Hearing needs: No Vision needs: No Physical Exam Vital Signs: Vital Signs: Last Vital Signs Temp 97.4 F 04/15/25 00:55 Pulse 77 04/15/25 00:55 Resp 17 04/15/25 00:55 BP 115/60 04/15/25 00:55 Pulse Ox 96 04/15/25 00:55 O2 Del Method Room Air 04/15/25 00:55 BMI result Body Mass Index 23.9 Const: General: healthy appearing, comfortable, no acute distress, alert and awake Nutritional Appearance: well nourished Orientation/consciousness: patient oriented x3 HEENT: Head: Yes normocephalic and Yes atraumatic Eyes: Eyelids: Yes eyelids normal Conjunctivae: conjunctivae normal Sclerae: sclerae normal Corneas: corneas normal Pupils: Equal, round and reactive pupils present EOM: EOMs intact bilaterally Neck: Neck: Yes full ROM Resp: Effort & Inspection: normal respiratory effort, able to speak in complete sentences, no audible wheezes and not labored Auscultation: clear to auscultation bilaterally Cardio: Other: there was no significant edema to lower extremities bilaterally. Rate: regular rate Rhythm: regular rhythm GI: Inspection: No distended Palpation (GI): Soft to palpation, not firm, nontender, no guarding and not rigid Skin: General skin exam: elasticity normal Neuro: General: patient oriented x3 Cranial nerves: Yes Equal, round and reactive pupils present and Yes Bilaterally intact EOM present Cognition (Neuro): normal cognition Medical Decision Making Medical Decision Making [facility] Narrative: 41-year-old female presents for evaluation of cough, shortness of breath and left-sided chest pain. She has been having respiratory symptoms for 3 weeks now. Her vital signs are within normal limits on arrival, lungs are clear to auscultation, she has no significant lower extremity edema but given the she complains of swelling unilaterally in the left with left calf pain we will get an ultrasound to rule out DVT. Given that she had a CT angiography 10 days ago I do not see any indication to repeat this as the patient is not hypoxic or tachycardic. A chest x-ray will be ordered to evaluate for postviral pneumonia. We will check basic labs and repeat viral swabs Differential Diagnosis Differential Diagnoses: The differential diagnosis associated with the presentation includes upper respiratory infection Influenza COVID-19 Pneumonia Bronchitis DVT Lab Data [facility] Lab Attestation statement: I reviewed the patient's lab results. no leukocytosis or anemia, normal platelet count. No electrolyte abnormalities warranting intervention. Troponin and pro BNP within normal limits 04/14/25 22:35 04/14/25 22:35 Labs: Lab Results 04/14/25 04/14/25 Range/Units 22:35 23:05 WBC 9.8 (4.8-10.8) X10*3/uL RBC 4.47 (4.20-5.50) X10*6/uL Hgb 13.9 (12.0-16.0) g/dl Hct 40.3 (37.0-47.0) % MCV 90.2 (80.0-98.0) fL MCH 31.1 (27.0-33.0) pg MCHC 34.5 (31.0-35.0) g/dl RDW 13.2 (11.0-16.0) % Plt Count 321 (160-400) X10*3/uL MPV 9.3 L (9.4-12.3) fL Immature Gran % (Auto) 0.9 H (0.0-0.4) % Neut % (Auto) 67.9 (45-73) % Lymph % (Auto) 23.2 (20-40) % [place] % (Auto) 6.8 (2-11) % Eos % (Auto) 1.0 (0-4) % Baso % (Auto) 0.2 (0-2) % Lymph # (Auto) 2.3 (1.2-4.9) X10*3/uL [place] # (Auto) 0.7 (0.1-1.2) X10*3/uL Eos # (Auto) 0.1 (0.0-0.4) X10*3/uL Baso # (Auto) 0.0 (0.0-0.2) X10*3/uL Abs Immat Gran (auto) 0.09 H (0.00-0.03) X10*3/uL Absolute Neuts (auto) 6.6 (2.0-8.3) x10*3/uL Absolute Nucleated RBC 0.000 (0.0-0.012) X10*3/uL Nucleated RBC % (auto) 0.0 (0.0-0.2) /100WBC Sodium 138 (135-145) mmol/L Potassium 4.2 (3.3-5.1) mmol/L Chloride 108 (96-108) mmol/L Carbon Dioxide 23 (22-29) mmol/L Anion Gap 11 L (12-20) BUN 20 H (9-16) mg/dL Creatinine 0.64 (0.5-1.4) mg/dL Estim Creat Clear Calc 88.9 Estimated GFR > 60 Random Glucose 111 (60-115) mg/dL Calcium 9.1 (8.4-10.2) mg/dL Magnesium 2.3 (1.6-2.6) mg/dL Total Bilirubin 0.2 (0.0-1.0) mg/dL AST 19 (5-31) U/L ALT 30 (0-31) U/L Alkaline Phosphatase 53 (39-117) U/L Troponin I High Sens < 2.7 (<3.5-17.0) ng/L NT-Pro-B Natriuret Pep 46.6 (<300) pg/mL Total Protein 6.6 (6.5-8.0) g/dL Albumin 4.2 (3.5-5.0) g/dL Lipase 122 H (8-78) U/L Urine Color Yellow Urine Appearance Clear Urine pH 5.5 (5.0-9.0) Ur Specific [place] 1.020 (1.005-1.025) Urine Protein Negative (Neg-Trace) mg/dL Urine Glucose (UA) Negative (Negative) mg/dL Urine Ketones Negative (Negative) mg/dL Urine Blood Negative (Negative) Urine Nitrite Negative (Negative) Ur Leukocyte Esterase Negative (Negative) Urine RBC 0-2 (0-2) /HPF Urine WBC 0-5 (0-5) /HPF Ur Squamous Epith Cells 3-5 (0-2) /HPF Urine Bacteria None Seen (None Seen) Hyaline Casts 0-2 (0-2) /LPF Influenza Type A (PCR) NEGATIVE (Negative) Influenza Type B (PCR) NEGATIVE (Negative) RSV RNA Qual (PCR) NEGATIVE (Negative) SARS-CoV-2 RNA (RT-PCR) NEGATIVE (Negative) Radiology Impression Discussion of test interpretation with radiology: I have reviewed the radiologist's reading. Radiologist Impression: Findings: No consolidation or effusion. Heart size is normal. No acute fracture. IMPRESSION: 1. No acute findings. This document has been electronically signed by: Jeni Campuzano MD on 04/15/2025 00:41:32 Discharge Plan Discharge Clinical Impression: Chest pain Patient Disposition: Home, Self-Care Instructions: Chest Pain (ED) Additional Instructions: your workup in the ER today was reassuring. This includes your screening labs, your EKG, your chest x-ray as well as your ultrasound. You also tested negative for influenza, COVID-19, RSV I recommend continue your current treatment regimen, follow up with your primary doctor and return for new or worsening symptoms Prescriptions: No Action albuterol sulfate 2.5 mg /3 mL (0.083 %) solution for nebulization 2.5 mg inhalation Q4H PRN (Reason: Shortness Of Breath Or Wheezing) methylprednisolone 4 mg tablet 20 mg PO BID@0900,1100 Airsupra 90-80 mcg/actuation HFA aerosol inhaler 2 inh inhalation Q4H PRN (Reason: Shortness Of Breath Or Wheezing) acetaminophen [Tylenol] 325 mg Tablet 975 mg PO Q6H PRN (Reason: Pain) psyllium Packet 1 packet PO TID PRN (Reason: Constipation) Rx Instructions: mix into at least 8 oz of water or juice before administering baclofen 10 mg tablet 10 mg PO TID PRN (Reason: muscle spasm) calcium carbonate [Calcium 500] 500 mg calcium (1,250 mg) Tablet,Chewable 500 mg PO DAILY carboxymethylcellulose sodium 1 % Drops, Liquid Gel 1 drp OPHTHALMIC (EYE) BID PRN (Reason: Dry Eye(S)) cyclosporine [Restasis] 0.05 % dropperette 1 drp ophthalmic (eye) BID cholecalciferol (vitamin D3) [Vitamin D3] 50 mcg (2,000 unit) Tablet 50 mcg PO DAILY Trelegy Ellipta 200-62.5-25 mcg Blister With Device 1 inh INHALATION BEDTIME benzonatate 100 mg Capsule 100 mg PO TID Qty: 20 0RF Mucus DM 30-600 mg Tablet Extended Release 12 Hr 2 tab PO BID Qty: 20 0RF montelukast [Singulair] 10 mg Tablet 10 mg PO DAILY esomeprazole magnesium 40 mg capsule,delayed release(DR/EC) 40 mg PO DAILY@0630 levothyroxine 125 mcg tablet 125 mcg PO DAILY@0600 ipratropium-albuterol 0.5 mg-3 mg(2.5 mg base)/3 mL solution for nebulization 3 ml inhalation Q6-8H PRN (Reason: wheezing) Qty: 180 0RF buspirone 7.5 mg tablet 7.5 mg PO BID 30 Days Qty: 60 2RF acyclovir 200 mg capsule 200 mg PO QID PRN (Reason: Outbreak) Print Language: Sami
[2025-04-15 00:55] VITALS: BP 115/60; PULSE 77; RESP 17; TEMP 36.3; O2SAT 96
[2025-04-15 01:24] VITALS: BP 115/60; PULSE 77; RESP 17; TEMP 36.3; O2SAT 96
== END 2025-04-15 01:36 | disposition home or self-care (01) ==
PROVIDERS: Physician Assistant; Emergency Provider Emergency Medicine; PCP Nurse Practitioner Family
DX: R07.9 Chest pain, unspecified (principal); R05.9 Cough, unspecified; R06.02 Shortness of breath; M79.662 Pain in left lower leg; R60.0 Localized edema; Z03.818 Encounter for observation for suspected exposure to other biological agents ruled out; Z85.850 Personal history of malignant neoplasm of thyroid
CPT/HCPCS: 71046; 80053; 81001; 83690; 83735; 83880; 84484; 85025; 87637; 93005; 93971; 99284

== ENCOUNTER → 2025-04-14 22:13 | Outpatient (BNV) | payer OTHER, SELFPAY | PROVIDERS: Emergency Provider Emergency Medicine; PCP Nurse Practitioner Family; Visit Provider Internal Medicine Cardiovascular Disease | DX: I44.4 Left anterior fascicular block (principal); I25.2 Old myocardial infarction | CPT/HCPCS: 93010 ==

== ENCOUNTER → 2025-04-15 | Outpatient (BNV) | payer OTHER, SELFPAY | PROVIDERS: Emergency Provider Emergency Medicine; PCP Nurse Practitioner Family; Visit Provider Radiology Diagnostic Radiology | DX: M79.662 Pain in left lower leg (principal); R07.9 Chest pain, unspecified | CPT/HCPCS: 71046; 93971 ==

== ENCOUNTER 2025-04-20 06:57 | Outpatient (AMB) | payer OTHER, SELFPAY ==
--- OUTSIDE RECORDS SUMMARY | 2024-09-08 03:20 | XMS_ITS ---
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 B arrett esophagus - K22.70 (Primary) Plan: * Procedure Codes: 4 3239 UPPER GI ENDOSCOPY, BIOPSY Billing Information: * Procedure Codes: 69371 UPPER GI ENDOSCOPY, BIOPSY. * The named appointment provid er may or may not be the originator of this progress note, and it is not deemed complete until electronically signed by the appointment provider. Sign off status: Pending * Provider: Ulices Pike MD Date: 0 09/08/2024 Generated for Chitra ordaz/Consuelo/Oscar on: 08:39 AM EST
--- OUTSIDE RECORDS SUMMARY | 2025-04-17 12:40 | XMS_ITS | Encounter Summary ---
Author Organization [facility] Address [address] [place] [address] Phone Care Team Providers Care Compensation Specialist Name Role Phone Arturo Lawrence MD, PhD Unavailable [phone] Brett Sharma NP Primary Care Provider + Encounter Details Date Type Department Care Team (Late st Contact Info) Description 04/17/2025 12:40 PM EST Telemedicine [facility] [address] [place] [address] Armen Rodriguez, CLARIBEL [address] [facility] [place] [place] [address] [email or web address] Acute non-recurrent pansinusitis (Primary Dx) Social History Tobacco Use Types [...] PM EST documented as of this encounter Patient Instructions * Patient Instructions* Armen Rodriguez CNP - 04/17/2025 12:40 PM EST [facility] You were evaluated by [facility]. Your symptoms are consistent with an acute recurrent bacterial sinusitis. In addition to the prescribed antibiotics to be taken with food and water. I would recommend the following to help alleviate your symptoms: 1. Flonase 2 puffs into each nostril 1x daily. 2. Zyrtec-D, Claritin-D or Vibha - D. 3. You may also wish to try nasal sinus rinses or Pooja pot. 4. Tylenol and/or Ibuprofen for pain, fever, headache. Seek medical advice or treatment if: Symptoms are getting worse after 7 days. Symptoms are unchanged or getting worse after 10 days. You experience shortness of breath or have any respiratory difficulty. You experience a high fever (> 102 F). You develop eye pain/ swelling and/or vision changes. You develop severe head or facial pain/swelling. If you have any additional questions after your visit, please call [facility] [phone] between the hours of 9am-9pm. If you wish to be evaluated in person for ongoing symptoms, please contact your Primary Care Physician or visit a [facility] site. [email or web address] documented in this encounter Progress Notes * Armen Rodriguez CNP - 04/17/2025 12:40 PM EST Images from the original note were not included. Subjective: Patient ID: Camryn Quach is a 49 y.o. female. Past medical history noted below. Presenting to [facility] urgent care with concerns for continued sinus infection. Patient reports she was diagnosed with a sinus infection and treated with a Z-Arnulfo on March 23. She is allergic to both Augmentin and doxycycline. She reports during this time she also had an asthma exacerbation and was then placed on methylprednisone which helped resolved her asthma exacerbation. She reports that her sinus symptoms are returned and they once again placed on a Z-Pakwhich improved her symptoms briefly but now she has returning facial pain and pressure over the maxillary and frontal sinuses and purulent nasal discharge. She has remained afebrile. Currently denieschest pain, shortness of breath, dizziness, lightheadedness or palpitations. 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 HENT: Positive for congestion, rhinorrhea and sinus pressure. Negative for ear pain and sore throat. Eyes: Negative for redness and unexpected vision change. Respiratory: Negative for cough and shortness of breath. Cardiovascular: Negative for chest pain and palpitations. Gastrointestinal: Negative for abdominal pain, diarrhea, nausea and vomiting. Genitourinary: Negative for problems with urination. Neurological: Negative for dizziness, speech difficulty, weakness, light- headedness and headaches. Psychiatric/Behavioral: Negative for agitation and confusion. All other systems reviewed and are negative. Skin: Negative for persistent rash and wound. Musculoskeletal: Negative for joint pain, myalgias and neck stiffness. There were no vitals filed for this visit. Objective: Physical Exam Constitutional: General: She is not in acute distress. Appearance: Normal appearance. She is not ill-appearing or toxic-appearing. HENT: Head: Normocephalic and atraumatic. Nose: Congestion and rhinorrhea present. Right Sinus: Maxillary sinus tenderness and frontal sinus tenderness present. Left Sinus: Maxillary sinus tenderness and frontal sinus tenderness present. Mouth/Throat: Pharynx: No oropharyngeal exudate or posterior oropharyngeal erythema. Eyes: Conjunctiva/sclera: Conjunctivae normal. Pulmonary: Effort: Pulmonary effort is normal. No respiratory distress. Comments: No laboring or difficulty breathing noted, no audible wheeze or stridor and no evidence of respiratory distress Abdominal: General: Abdomen is flat. There is no distension. Musculoskeletal: General: Normal range of motion. Cervical back: Normal range of motion. Skin: General: Skin is dry. Neurological: Mental Status: She is alert and oriented to person, place, and time. Psychiatric: Mood and Affect: Mood normal. Behavior: Behavior normal. No results found for this visit on 04/17/25. Procedure: Procedures Assessment/Plan: Diagnosis Plan 1. Acute non-recurrent pansinusitis levoFLOXacin (LEVAQUIN) 750 MG tablet Results and Data Reviewed: I personally reviewed relevant previous medical records. I personally reviewed family history and it is noncontributory. Assessment and Plan: 49-year-old female Presenting to virtual urgent care with concerns for continued sinus infection. Currently on virtual exam patient is alert and oriented x3, no acute distress, no pallor/diaphoresis and communicating appropriately in full sentences without mental status changes. Limited virtually but OP appears pink and clear, no obvious exudate, tonsils symmetric and uvula midline without deviation. Patient denies any cervical lymphadenopathy on self exam. Patient does not sound hoarse, no obvious hot potato voice, no drooling or trismus and is managing secretions well. Centor criteria is 0 with low suspicion for strep pharyngitis and no evidence of deep space infectionor abscess. Currently on self exam patient reports bilateral maxillary and frontal sinus tendernesswith associated thick purulent nasal discharge and facial pressure. Patient was treated on with azithromycin because she is allergic to both Augmentin and doxycycline. During the same timeshe was on methylprednisone for an asthma exacerbation. She was once again placed on azithromycin which she reports mildly improved her symptoms but symptoms have returned and worsened. Patient has remained afebrile denies any severe fatigue, chills or myalgias. denies any known or confirmed sick exposures and given duration of symptoms low suspicion for COVID or influenza. No reports of cough at this time, no complaints of shortness of breath, pleuritic chest pain or palpitations and no evidence of PE. No laboring or difficulty breathing noted, no audible wheezing or stridor no evidence of respiratory distress. Given lack of fevers, shortness of breath or significant systemic symptoms low suspicion for pneumonia. Patient reports she was recently on high-dose methylprednisone given asthma exacerbation. She briefly develops neuropathy in her fingertips which resolved after completing the methylprednisone. Acute non-recurrent pansinusitis (primary encounter diagnosis) Plan: levoFLOXacin (LEVAQUIN) 750 MG tablet Reviewed Medication and Possible Side effects in detail. Advised food and water and recommended probiotic especially since patient has been on multiple antibiotics recently. Reviewed risk of tendon rupture. Advised rest, hydration and humidified air. Reviewed over the counter medications for symptom support, highlighted in AVS Advised if symptoms persist or worsen to please be evaluated in person and patient expressed understanding AVS with further instructions This telemedicine encounter was conducted virtually using HIPAA compliant videoconferencing technology. Portions of the exam reflect limitations in the virtual environment and may be limited to camera quality. This note was created with [employer] software. I have read the note but there are often subtle changes that are difficult to identify. As a result, there may be errors within the document. Please contact me for clarification if necessary. documented in this encounter Plan of Treatment Upcoming Encounters Date Type Department Care Team (Late st Contact Info) Description 04/29/2025 10:30 AM EST Office Visit [facility] [address] [facility], 5th [place] [address] Ranjit Morley MD [address] [address] [email or web address] 05/18/2025 8:45 AM EST Evaluation [facility] [address] [place] [address] Charissa Lew AuD [address] [place] [phone] [email or web address] 05/18/2025 9:30 AM EST Office Visit [facility] [address] [place] [address] Arturo Bunn MD, PhD [address] [place] [phone] [email or web address] 06/08/2025 3:00 PM EST Office Visit [facility] [address] [facility], [address] [place] [address] Miki Blackwood MD 55 [facility] [address] [place] [address] [email or web address] 08/27/2025 9:10 AM EDT Office Visit [facility] [address] [place] [address] Pooja Jacob MD [address] [place] [address] [email or web address] 09/24/2025 10:30 AM EDT Office Visit [facility] [address] [facility], [address] [place] [address] Magnus Perez MD [address] [place] [phone] [email or web address] documented as of this encounter Visit Diagnoses Diagnosis Acute non-recurrent pansinusitis- Primary documented in this encounter Care Teams Compensation Specialist Relationship Specialty Start Date End Date Brett Sharma NP [address] [facility] [place] [address] PCP - General Family Medicine 08/16/21 Arturo Lawrence MD, PhD [address] [place] [address] Outpatient [facility] [address] [place] [address] [email or web address] Hematology and Oncology 07/06/17 documented as of this encounter Additional Source Comments The information contained in this document represents components of the legal health record. It is not the complete legal health record.[facility]
--- OUTSIDE RECORDS SUMMARY | 2025-04-17 16:00 | XMS_ITS | Encounter Summary ---
Author Organization [facility] Address [address] [place] [address] Phone Care Team Providers Care Casino Accountant Name Role Phone Arturo Lawrence MD, PhD Unavailable [phone] Brett Sharma NP Primary Care Provider + Encounter Details Date Type Department Care Team (Late st Contact Info) Description 04/17/2025 4:00 PM EST Telemedicine [facility] [address] [place] [address] Jen Cuenca [address] [place] [address]. [place] [address] [email or web address] Acute non-recurrent pansinusitis (Primary Dx) Social History [...] PM EST documented as of this encounter Progress Notes * Jen Cuenca - 04/17/2025 4:00 PM EST Patient did not require additional visit. Had question from earlier today. Patient wanted to ensurethat we knew that she was on both albuterol and the DuoNeb as she had read that could potentially interact with the Levaquin that she was prescribed. Discussed there is an increased risk of QT prolongation. Patient does not have history of long QT. Patient has been experiencing both sinusitis and asthma exacerbation. Patient is limited in what she is able to use for antibiotics as she is allergicto Keflex and doxycycline and has failed 2 rounds of azithromycin for sinusitis. Patient will continue albuterol and use Levaquin as prescribed. Patient will monitor for side effects. documented in this encounter Plan of Treatment Upcoming Encounters Date Type Department Care Team (Late st Contact Info) Description 04/29/2025 10:30 AM EST Office Visit [facility] [address] [place] [address], 5th [place] [address] Ranjit Morley MD [address] [place] [address] [email or web address] 05/18/2025 8:45 AM EST Evaluation [facility] [address] [place] [address] Charissa Lew AuD [address] [place] [phone] [email or web address] 05/18/2025 9:30 AM EST Office Visit [facility] [address] [place] [address] Arturo Bunn MD, PhD [address] [place] [address] [email or web address] 06/08/2025 3:00 PM EST Office Visit [facility] [address] [place] [address], [address] [place] [address] Miki Blackwood MD [address] [place] [address] [address] [place] [address] [email or web address] 08/27/2025 9:10 AM EDT Office Visit [facility] [address] [place] [address] Pooja Jacob MD 75 [facility] [place] [address] [email or web address] 09/24/2025 10:30 AM EDT Office Visit [facility] [address] [facility], [address] [place] [address] Magnus Perez MD 55 [facility] [address] [place] [address] [email or web address] documented as of this encounter Visit Diagnoses Diagnosis Acute non-recurrent pansinusitis- Primary documented in this encounter Care Teams Casino Accountant Relationship Specialty Start Date End Date Brett Sharma NP [address] [facility] [place] [address] PCP - General Family Medicine 08/16/21 Arturo Lawrence MD, PhD 55 [facility] [address] [place] [address] [email or web address] Hematology and Oncology 07/06/17 documented as of this encounter Additional Source Comments The information contained in this document represents components of the legal health record. It is not the complete legal health record.[facility]
--- NOTE | 2025-04-20 07:35 | A.OFFPC_ITS ---
Intake Visit Reasons: Ed follow up Allergies hydrocodone (HYDROCODONE) Allergy (Intermediate, Verified 04/20/25 07:35) HIVES amoxicillin (Augmentin) Allergy (Unknown, Verified 04/20/25 07:35) unknown chlorhexidine Allergy (Unknown, Verified 04/20/25 07:35) unknown clavulanic acid (Augmentin) Allergy (Unknown, Verified 04/20/25 07:35) unknown doxycycline Allergy (Unknown, Verified 04/20/25 07:35) anaphylaxis ibuprofen (IBUPROFEN) Allergy (Unknown, Verified 04/20/25 07:35) HIVES meperidine (Demerol) Allergy (Unknown, Verified 04/20/25 07:35) unknown morphine (MORPHINE) Allergy (Unknown, Verified 04/20/25 07:35) HIVES cephalexin (From Keflex) Allergy (Verified 04/20/25 07:35) Anaphylaxis cinnamon Allergy (Verified 04/20/25 07:35) Anaphylaxis latex Allergy (Verified 04/20/25 07:35) Unknown lidocaine (From LidoPatch) Allergy (Verified 04/20/25 07:35) Rash menthol (From LidoPatch) Allergy (Verified 04/20/25 07:35) Rash mupirocin Allergy (Verified 04/20/25 07:35) Rash prednisone Allergy (Verified 04/20/25 07:35) neuropathy strawberry Allergy (Verified 04/20/25 07:35) Anaphylaxis oxycodone (From PERCOCET) Adverse Reaction (Unknown, Verified 04/20/25 07:35) HIVES Medication List - Last Reconciled 04/20/25 by REX Briones- acetaminophen (Tylenol) 975 mg PO Q6H PRN acyclovir 200 mg PO QID PRN albuterol sulfate 2.5 mg inhalation Q4H PRN albuterol-budesonide 90-80 mcg/actuation (Airsupra) 2 inhalations inhalation Q4H PRN baclofen 10 mg PO TID PRN benzonatate 100 mg PO TID buspirone 7.5 mg PO BID 30 days calcium carbonate (Calcium 500) 500 mg PO DAILY carboxymethylcellulose sodium 1% 1 drp ophthalmic (eye) BID PRN cholecalciferol (vitamin D3) (Vitamin D3) 50 mcg PO DAILY cyclosporine 0.05% (Restasis) 1 drp ophthalmic (eye) BID dextromethorphan-guaifenesin 30-600 mg (Mucus DM) 2 tabs PO BID esomeprazole magnesium 40 mg PO DAILY@0630 fluconazole 150 mg PO Q3D 2 doses ylwrsxceksd-wfcyejdxl-zwtscdjr 200-62.5-25 mcg (Trelegy Ellipta) 1 inh inhalation BEDTIME ipratropium-albuterol 0.5 mg-3 mg(2.5 mg base)/3 mL 3 mL inhalation Q6-8H PRN levofloxacin 750 mg PO DAILY levothyroxine 125 mcg PO DAILY@0600 methylprednisolone 20 mg PO BID@0900,1100 montelukast (Singulair) 10 mg PO DAILY nystatin 4 mL PO TID psyllium 1 packet PO TID PRN Tobacco use date assessed: 04/08/25 Dental Screening Dental Screen Date: 04/08/25 [facility] Medical History Degenerative lumbar disc Neck pain with history of cervical spinal surgery Degenerative cervical disc Foraminal stenosis of cervical region Fibromuscular dysplasia of carotid artery Tinnitus Hearing loss Hernia GERD (gastroesophageal reflux disease) Thyroid cancer Elevated liver function tests Barretts esophagus Enlarged thyroid MVP (mitral valve prolapse) Fibroadenoma of left breast Renal cyst Hepatic hemangioma Hepatic adenoma Asthma Hemochromatosis Nodular thyroid disease Surgical History Hx of prior ablation treatment Hx of partial thyroidectomy History of esophagogastroduodenoscopy (EGD) H/O colonoscopy H/O thyroidectomy History of tonsillectomy and adenoidectomy History of section Family History Father HTN (hypertension) Type 2 diabetes mellitus High cholesterol Ulcerative colitis Mother Pulmonary embolism Multiple myeloma Maternal Grandmother Diabetes mellitus CVD (cardiovascular disease) Maternal Grandfather CVD (cardiovascular disease) Paternal Grandfather Substance use disorder Paternal Grandmother Uterine cancer Maternal Uncle CVD (cardiovascular disease) Substance use disorder Sister No problems noted. Son No problems noted. Daughter No problems noted. Social History Household Members: Spouse and Children Housing: House Alcohol intake: current Alcohol intake frequency: does not drink Patient Tobacco Use Status: Never used Tobacco e-Cigarette/Vaping Use: Never Used Second Hand Smoke Exposure: No Advance Directives Date on File: 04/06/25 service: No Current occupational status: employed Current occupation: [employer] Current occupational exposures/hazards: No Cognitive needs: No Hearing needs: No Vision needs: No Questionnaire Thrive Questionnaire Date Thrive assessed: 04/05/25 ABI-7 AMB Questionnaire ABI-7 Date ABI - 7 assessed: 04/08/25 Source: Developed by Drs. Rosales Rose, Thelma Willams, King Larson and colleagues, with an educational marjorie from [employer]. Physical exam (Primary Care) Tobacco/Smoking Status: Tobacco use Status Tobacco use date assessed 04/08/25 04/08/25 11:36 Patient Tobacco Use Status Never used Tobacco 04/08/25 11:27 e-Cigarette/Vaping Use Never Used 04/08/25 11:27 Thrive Assessment: Date of Thrive Assessment Date Thrive assessed 04/05/25 04/08/25 11:27 Coding Level of Care Code TCM Mod MDM <= 7 Days Diagnoses Viral illness B34.9 Respiratory syncytial virus (RSV) B33.8 Cough R05.9 Tinea B35.9 Assessment & Plan Assessment & Plan (1) Viral illness: Code(s): B34.9 - Viral infection, unspecified Category: Medical (2) Respiratory syncytial virus (RSV): Code(s): B33.8 - Other specified viral diseases Category: Medical (3) Cough: Code(s): R05.9 - Cough, unspecified Category: Medical (4) Tinea: Code(s): B35.9 - Dermatophytosis, unspecified Category: Medical Plan . Medications: New nystatin swish and swallow 4 mL PO TID 60 mL 0RF fluconazole 150 mg PO Q3D 2 tabs 1RF 2 doses
--- OUTSIDE RECORDS SUMMARY | 2025-04-20 08:38 | XMS_ITS | Encounter Summary ---
Author Organization [facility] Address [address] [place] [address] Care Team Providers Care Flight Test Shop Mechanic Name Role Phone Brett Sharma NP Primary Care Provider + [phone] Isis Young RN Unavailable [phone] Tip Campos MD Unavailable [phone] Magnus Perez MD Unavailable [phone] System, Provider Not In Unavailable Unavaila Miki Diana MD Unavailable [phone] Raúl Pike MD Unavailable Jorge Moreno DO Unavailable Arturo Bunn MD Unavailable Leatha Mc Unavailable [phone] Encounter Details Date Type Department Care Team (Late st Contact Info) Description 02/03/2025 Scanned Document [facility] [place] [address] [facility] [address] [place] [phone] Samara Mendoza PA-C 85 [facility] Joshua [address] [place] [address] Social History Tobacco Use Types Packs/Day [...] any time in the past 12 m [facility], were you homeless or living in a custodial (including now)? No 02/05/2025 [facility] Utilities Answer Date Recorded In [...] 1:00 PM EST Office Visit [facility] [place] [address] [facility] [address] [place] [address] Clyde Martin PA 399 [facility] [address] [place] [address] 04/28/2025 3:45 PM EST Office Visit [facility] [address] [address] Alonzo Root MD 988 [place], [place] [id number] 06/01/2025 10:00 AM EST Office Visit [facility] [place] [address] [facility] [address] [place] [phone] Samara Mendoza PA-C 85 [facility] [address] [place] [phone] documented as of this encounter Visit Diagnoses Not on filedocumented in this encounter Care Teams Flight Test Shop Mechanic Relationship Specialty Start Date End Date Brett Sharma NP [address] [place] [address] PCP - General Family Medicine 03/03/24 Isis Young, DANE 80 [place] [address] Nurse Navigator Surgery, Neurosurgery 01/25/25 Tip Campos MD [address] [address] Surgery, Neurosurgery 02/01/25 Magnus Perez MD [address] [place] [phone] Cardiovascular Disease 02/01/25 System, Provider Not In [address] [place] [phone] Hematology Oncology 02/01/25 Miki Blackwood MD [address] [place] [address] Endocrinology 02/01/25 Raúl Pike MD [address] [place] [address] Gastroenterology 02/01/25 Jorge Moreno DO [address] [place] [address] Immunology 02/01/25 Arturo Bunn MD [address] [place] [address] Otolaryngology 02/01/25 Leatha Mc PA [address] [address] Physician Therapy Manager Surgery, Neurosurgery 02/05/25 documented as of this encounter
--- OUTSIDE RECORDS SUMMARY | 2025-04-20 08:39 | XMS_ITS | Clinical Summary ---
Author Organization Formerly [facility] Address [address] [place] [address] Care Team Providers Care Buzzsaw Operator Helper Name Role Phone Rosalind Vizcarra NP Primary Care Provider Isis Young RN Unavailable Makayla Campos MD Unavailable [phone] Magnus Perez MD Unavailable [phone] System, Provider Not In Unavailable Unavaila Miki Diana MD Unavailable [phone] Raúl Pike MD Unavailable [phone] Jorge Moreno DO Unavailable [phone] Arturo Bunn MD Unavailable Leatha Mc Unavailable [phone] Allergies Active Allergy Reactions Criticality Noted [...] with cardiology ( Dr. Manuel Perez) in [place]. Per his recent notes (02/01/25)-Discussed pursuing a [...] Description 04/05/2025 8:00 AM EST Ancillary Procedure [facility] Radiology [address] [place] [address] Provider, File Room 04/05/2025 7:55 AM EST Ancillary Procedure [facility] [address] [place] [address] Provider, File Room 04/05/2025 7:55 AM EST Ancillary Procedure [facility] [address] [place] [address] Provider, File Room 03/31/2025 10:00 AM EST Office Visit [facility] Neuro[facility] [place] [address] [facility] [address] [place] [address] Samara Mendoza PA-C S/P cervical spinal fusion (Primary Dx); Cervical disc disorder with radiculopathy; Lumbar radiculopathy; Degeneration of intervertebral disc of lumbar region with discogenic back pain and lower extremity pain; Fibromuscular dysplasia 03/25/2025 Scanned Document [facility] Neurosurgery [address] [place] [address] Samara Mendoza PA-C 03/19/2025 Scanned Document [facility] Neurosurgery [address] [place] [address] Makayla Campos MD 03/19/2025 Scanned Document [facility] Neurosurgery [address] [place] [address] Makayla Campos MD 03/09/2025 Scanned Document [facility] Neurosurgery [address] [place] [address] Leatha Mc PA 03/05/2025 9:00 AM EST Office Visit [facility] [address] [address] Alonzo Root MD Dysphonia (Primary Dx); Laryngeal spasm; Muscle tension dysphonia; History of fusion of cervical spine; Chronic rhinitis; Unilateral partial vocal fold paralysis 02/26/2025 7:38 AM EST - 02/26/2025 11:59 PM EST Hospital Encounter [facility] [address] [place] [address] Samara Mendoza PA-C Dysphagia, unspecified type; S/P cervical spinal fusion Discharge Disposition: Home or Self Care 02/24/2025 1:00 PM EST Evaluation [facility]- [address] [phone] Leatha Mc PA Falk, Janice, [facility]-AUTO BODY SHOP MANAGER Dysphagia, pharyngeal phase (Primary Dx); S/P cervical spinal fusion 02/24/2025 Plan of Care [facility]ation [facility] [address] [place] [address] 02/24/2025 Scanned Document [facility]surgery [place] [address] [facility] [address] [place] [address] Makayla Campos MD 02/19/2025 11:40 AM EDT Ancillary Procedure [facility]iology [address] [place] [address] Provider, File Room 02/19/2025 11:35 AM EDT Ancillary Procedure [facility] [address] [place] [address] Provider, File Room 02/19/2025 11:35 AM EDT Ancillary Procedure [facility] [address] [place] [phone] Provider, File Room 02/19/2025 10:00 AM EDT Office Visit [facility]surgery [place] [address] [facility] [address] [place] [address] Leatha Mc PA S/P cervical spinal fusion (Primary Dx); Dysphonia; Cervical disc disorder with radiculopathy; Fibromuscular dysplasia 02/17/2025 Scanned Document [facility]surgery [place] [address] [facility] [address] [place] [address] Leatha Mc PA 02/09/2025 Scanned Document [facility] Neurosurgery [place] [address] [place] [address] Neurosurgery, Scan 02/05/2025 8:15 AM EDT - 02/05/2025 12:00 PM EDT Surgery [facility] Perioperative Surgical Services [address] [place] [address] Makayla Campos MD ACDF 4-6 02/05/2025 8:13 AM EDT Anesthesia Event [facility] Services [address] [place] [phone] Conrad Jiang MD 02/05/2025 6:14 AM EDT - 02/07/2025 2:04 PM EDT Hospital Encounter [facility] [address] [place] [address] Makayla Campos MD Cervical spondylosis (Primary Dx) Discharge Disposition: Home or Self Care 02/03/2025 Scanned Document [facility] [place] [address] [facility] [address] [place] [address] Samara Mendoza PA-C 02/03/2025 Results Follow-Up [facility] [address] [place] [address] Ginny White PA 02/02/2025 10:30 AM EDT Pre-Admission Testing [facility] [address] [place] [address] Ginny White PA Pre-op evaluation (Primary Dx); Gastroesophageal reflux disease with esophagitis without hemorrhage; Hypoparathyroidism after procedure; Tachycardia, paroxysmal (HCC); Cervical stenosis of spine; Hemochromatosis, unspecified hemochromatosis type; History of asthma; Mitral valve prolapse; Complication of anesthesia, initial encounter; Prediabetes 02/02/2025 9:00 AM EDT Office Visit [facility] [address] [place] [address] Alonzo Root MD Dysphonia (Primary Dx); Cervical disc disorder; Muscle tension dysphonia 01/27/2025 9:00 AM EDT Consult [facility] Neurosurgery [address] [place] [address] Makayla Campos MD Cervical disc disorder with radiculopathy (Primary Dx) 01/27/2025 Scanned Document [facility] Neurosurgery [address] [place] [address] Makayla Campos MD 01/24/2025 7:30 PM EDT - 01/25/2025 3:33 PM EDT Hospital Encounter [facility] Emergency Department [address] [facility] [place] [address] Jaswinder Valentine MD Alkasir, Amr, MD Khan, Sana, MD Cervical stenosis of spine (Primary Dx); Cervical stenosis of spinal canal; Chest pain Discharge Disposition: Home or Self Care 01/22/2025 11:20 AM EDT Ancillary Procedure [facility] [address] [facility] [place] [address] Provider, File Room 01/22/2025 Scanned Document [facility] [id number] [address] [facility] [address] [place] [address] Makayla Campos MD from Last 3 Months [...] in a longterm (including now)? No 02/05/2025 [facility] Utilities Answer Date Recorded In the [...] Description 04/26/2025 1:00 PM EST Office Visit [facility] Plastic & Reconstructive Surgery [place] [address] [facility] [address] [place] [address] Clyde Martin PA [address] [facility] [address] [place] [address] 04/28/2025 3:45 PM EST Office Visit [facility] [place] [address] [place] [address] Alonzo Root MD [address] [place] [address] 06/01/2025 10:00 AM EST Office Visit [facility] Neurosurgery [place] [address] [facility] [address] [place] [address] Samara Mendoza PA-C 85 [facility] [address] [place] [address] Health Maintenance Due Date Last Done Comments [...] Author ST [facility] 1 Speech Therapy No Gui, Zeina, CCC-AUTO BODY SHOP MANAGER Note: Pt will tolerate least restrictive diet without s/s aspiration. ST ST[facility] 1 Speech Therapy No Zeina Messer, CCC-AUTO BODY SHOP MANAGER Note: Pt will complete an instrumental swallowing evaluation within 2 weeks. Additional goals to be set as indicated. Medical Devices Implanted Type Area Semi Conductor Assembler Device Identifier Shelf Expiration Date Model / Serial / Lot [id number] Plate Spine 37.5mm Bone Valentina Vs Elite - [id number] Implanted:Qty : 1 on 02/05/2025 by Makayla Campos MD at [facility] Plate N/A: Spine Cervical [employer] MINIMALLY INVASIVE T [id number] / / [id number] Screw Bone Spine Cervical Anterior [place] 14mm Ti 4mm - [id number] Implanted:Qty : 4 on 02/05/2025 by Makayla Campos MD at [facility] Spine N/A: Spine Cervical [employer] MINIMALLY INVASIVE T [id number] / / [id number] Screw Bone Spine Cervical Anterior [place] 13mm Ti 4mm - [id number] Implanted:Qty : 2 on 02/05/2025 by Makayla Campos MD at [facility] Spine N/A: Spine Cervical [employer] MINIM[employer] INVASIVE T [id number] / / [id number] Aalograft Spacer [id number] - [id number] Implanted:Qty : 1 on 02/05/2025 by Makayla Campos MD at [facility] Tissue N/A: Spine Cervical [employer] 06/02/2027 [id number] / [id number] / [id number] Graft Bone Crstn Asr Lrdtc Canc Aureliano Algrf Spcr [id number] - [id number] Implanted:Qty : 1 on 02/05/2025 by Makayla Campos MD at [facility] Tissue N/A: Spine Cervical [employer] MIN[employer] INVAS[employer] T 05/25/2027 [id number] / [id number] / [id number] Procedures Procedure Name Priority Date/Time Associated Diagnosis [...] ANES INTUBATION Routine 02/05/2025 9:[address] ARTHRD ANT INTERBODY DECOMPRESS CERVICAL BELW C2 [...] your patient to us, Juan Moran MD [id number] (Electronically Signed - 04/14/2025 10:11) Copy: PATIENT [...] Moran MD 04/14/2025 10:11 AM EST RPWorkstation: [id number] Thank you for referring your patient to us, Juan Moran MD [id number] (Electronically Signed - 04/14/2025 10:11) Copy: PATIENT , Lambert MOSS IMG DIAGNOSTIC IMAGING ORDERABLE S Final Result * CR Spine Archive for Reference only (04/05/2025 7:54 AM EST) [facility] - 04/05/2025 7:54 AM EST This study has been auto finalized and does not contain a result. us File Room Provider IMG DIGITIZE FILMS Final Resu lt Performing Organization Address [facility] de Phone Number [place] [phone] * CT Chest Archive for Reference Only (04/05/2025 7:54 AM EST) Only the most recent of2 resultswithin the time period is included. Narrative [place] - 04/05/2025 7:54 AM EST This study has been auto finalized and does not contain a result. us File Room Provider IMG DIGITIZE FILMS Final Resu lt Performing Organization Address [facility] Co de Phone Number [place] [phone] * XR Lumbar spine complete w/bending 6+ [...] your patient to us, Minh Nayak MD [id number] (Electronically Signed - 03/17/2025 15:47) Copy: ROSALIND VIZCARRA [facility] [address] [place] [address] [facility] 03/17/2025 3:47 PM EST EXAMINATION: XR LUMBAR [...] Nayak MD 03/17/2025 03:47 PM EST RPWorkstation: [id number] Thank you for referring your patient to us, Minh Nayak MD [id number] (Electronically Signed - 03/17/2025 15:47) Copy: ROSALIND VIZCARRA NP [facility] [address] [facility] [place] [address] Leatha MOSS IMG DIAGNOSTIC IMAGING ORDERAB LES Final Result * [place] Modified barium swallow w/speech (02/26/2025 8:56 AM EST) Anatomical Region Laterality Modality Radio Fluoroscop y 02/26/2025 8:21 AM EST Impressions 02/26/2025 4:44 PM EST 1. No aspiration or penetration with tested consistencies. 2. Please see speech language therapist's note for further details. Interpreted by: Manuel Shabazz MD Branch Library Clerk I personally reviewed the images and the [...] with tested consistencies. Procedure Note Efrain Lind, - 02/26/2025 EXAMINATION: [place] MODIFIED BARIUM SWALLOW [...] further details. Interpreted by: Manuel Shabazz MD Branch Library Clerk I personally reviewed the images and the [...] your patient to us, Juan Moran MD [id number] (Electronically Signed - 03/01/2025 17:56) Copy: MAKAYLA CAMPOS [facility]- [facility]GERY- [place] [address] [place] [address] ROSALIND VIZCARRA [facility] [address] [place] [address] PATIENT , Narrative 03/01/2025 5:56 PM EST [...] Moran MD 03/01/2025 05:56 PM EST RPWorkstation: [id number] Thank you for referring your patient to us, Juan Moran MD [id number] (Electronically Signed - 03/01/2025 17:56) Copy: MAKAYLA CAMPOS [facility] [place] [address] [place] [address] ROSALIND VIZCARRA [facility] [address] [place] [place] [address] PATIENT , Leatha MOSS IMG DIAGNOSTIC IMAGING ORDERAB LES Final Result * CT Head Archive for Reference Only (02/19/2025 11:33 AM EDT) Only the most recent of2 resultswithin the time period is included. Narrative [place] - 02/19/2025 11:33 AM EDT This study has been auto finalized and does not contain a result. us File Room Provider IMG DIGITIZE FILMS Final Resu lt Performing Organization Address [facility] de Phone Number [place] [phone] * MR Head Archive for Reference Only (02/19/2025 11:32 AM EDT) Narrative [place] - 02/19/2025 11:32 AM EDT This study has been auto finalized and does not contain a result. us File Room Provider IMG DIGITIZE FILMS Final Resu lt Performing Organization Address [facility] Co de Phone Number [place] [phone] * XR Chest 1 view-Portable (02/06/2025 6:08 [...] Mild degenerative disc disease at C6-C7, unchanged. us Leatha MOSS IMG DIAGNOSTIC IMAGING ORDERAB [...] hand Insertion attempts: [address] ANESTHESIA Final Result * ANES INTUBATION (02/05/2025 [...] Complications: no complications us Conrad Jiang MD CT ANESTHESIA Final Result * POCT , Urine (02/05/2025 6:48 AM EDT) Preg Test, Ur Negative Negative Lot Number [id number] Yard Loader Operator Pass Pass Urine 02/05/2025 6:48 AM EDT [...] MOSS BLOOD BANK TEST [place] [address], [address] [address] * (ABNORMAL) Hemoglobin A1c with Estimated Average [...] ORDERABLES Final Resul t Performing Organization Address [facility] Co de Phone Number [address] [address], [address] [address] * MRSA PCR Screen, Qualitative: (02/02/2025 11:39 AM EDT) MRSA Result Not Detected Not Detected 10:27 PM EDT [facility] Comment:Performed by the Xpe rt MRSA NxG Assay Swab, Anterior Nares Specimen from nose / Unknown 02/02/2025 11:39 AM EDT 02/02/2025 8:25 PM EDT us Ginny Otoo PA MICROBIOLOGY - GENERAL ORDERABLE S Final Result Performing Organization Address [facility] [place] [address], [address] [address] * Partial Thromboplastin Time (PTT) (02/02/2025 11:39 [...] ORDERABLES Final Resul t Performing Organization Address [facility] Co de Phone Number [address] [address], [address] [address] * Protime-INR (02/02/2025 11:39 AM EDT) Anticoagulant [...] ORDERABLES Final Resul t Performing Organization Address City/[facility] [place] [address], [place] [address] * Transferrin (02/02/2025 11:39 AM EDT) Transferrin 209 200 - 360 mg/dL 02/02/2025 8:50 PM EDT [facility] Blood Blood specimen / Unknown 02/02/2025 11:39 AM EDT 02/02/2025 8:26 PM EDT us Ginny Otoo PA LAB BLOOD ORDERABLES Final Resul t Performing Organization Address City/[facility] [place] [address], [place] [address] * Prealbumin (02/02/2025 11:39 AM EDT) Prealbumin 33 20 - 40 mg/dL 02/02/2025 8:50 PM EDT [facility] Blood Blood specimen / Unknown 02/02/2025 11:39 AM EDT 02/02/2025 8:26 PM EDT us Ginny Otoo PA LAB BLOOD ORDERABLES Final Resul t Performing Organization Address [facility]/ZIP Co de Phone Number [address] [address], [address] [address] * LAB RESULT (02/01/2025) us Scan Primary Care HX AMB PROCEDURES Final Result * (ABNORMAL) High Sensitivity Troponin T (Once) (01/25/2025 3:31 AM EDT) Only the most recent of4 resultswithin the time period is included. [facility] High Sensitivity Troponin T 38(H) <15 ng/L 01/25/2025 4:07 AM EDT [facility] Delta (Change) 13(H) <3 01/25/2025 4:07 AM EDT [facility] Comment:Decreased Blood Blood specimen / Unknown 01/25/2025 3:31 AM EDT 01/25/2025 3:35 AM EDT us Zaira Stewart MD LAB BLOOD ORDERABLES Final Resul t Performing Organization Address [facility] Co de Phone Number [address] [address], [address] [address] * ECG 12 lead (01/25/2025 2:58 AM EDT) Only the most recent of2 resultswithin the time period is included. [facility] Ventricular rate 99 BPM EKG [facility] Atrial rate 99 BPM EKG [facility] P-R interval 182 ms EKG [facility] QRS duration 88 ms EKG [facility] Q-T interval 344 ms EKG [facility] QTC calculation (Bazett) 442 ms EKG [facility] P axis 60 degrees EKG [facility] R axis -52 degrees EKG [facility] T axis 30 degrees EKG [facility] 01/25/2025 2:58 AM EDT Narrative EKG [facility] - 01/25/2025 12:02 PM EDT Normal sinus rhythm Left axis deviation Inferior infarct (cited on or before 24-Jan-2025) Cannot rule out Anterior infarct (cited on or before 24-Jan-2025) Abnormal ECG When compared with ECG of 24-Jan-2025 19:20, No significant change was found Confirmed by MD Forte Eric ([id number]) on 01/25/2025 12:02:53 PM Procedure Note Golden Forte MD - 01/25/2025 Normal sinus rhythm Left axis deviation Inferior infarct (cited on or before 24-Jan-2025) Cannot rule out Anterior infarct (cited on or before 24-Jan-2025) Abnormal ECG When compared with ECG of 24-Jan-2025 19:20, No significant change was found Confirmed by MD Forte Eric ([id number]) on 01/25/2025 12:02:53 PM us Jaswinder Valentine MD ECG ORDERABLES Final Result Performing Organization Address City/[facility]/ZIP Co de Phone Number EKG [facility] * Magnesium (01/24/2025 11:49 PM EDT) Magnesium 2.1 1.6 - 2.7 mg/dL 01/25/2025 2:44 AM EDT [facility] 01/24/2025 11:4 9 PM EDT 01/25/2025 12:01 AM EDT us Jaswinder Valentine MD LAB BLOOD ORDERABLES Final Res ult Performing Organization Address [facility] Co de Phone Number [address] [address], [address] [address] * MRI Cervical spine w/o contrast (01/24/2025 10:41 PM EDT) Anatomical Region Laterality Modality C-spine Magnetic Resonan ce 01/24/2025 9:42 PM EDT Addenda Addendum by Capo Constantino MD on 01/26/2025 8:50 AM EDT ADDENDUM #1 Results Acknowledgement: This was communicated to Dr. Jaswinder Valentine by a physician field support engineer at 11:25 PM on 01/24/2025. Impressions 01/24/2025 [...] severe right foraminal stenosis. Jaswinder Valentine MD [facility] MRI ORDERABLES Edited Resu lt - Final * MRI Brain w/o contrast (01/24/2025 10:41 PM EDT) Anatomical Region Laterality Modality Head Magnetic Resonan ce 01/24/2025 9:43 PM EDT Addenda Addendum by Capo Constantino MD on 01/26/2025 8:50 AM EDT ADDENDUM #1 Results Acknowledgement: This was communicated to Dr. Jaswinder Valentine by a physician field support engineer at 11:25 PM on 01/24/2025. Impressions 01/24/2025 [...] right foraminal stenosis. us Jaswinder Valentine MD [facility] [place] ORDERABLES Edited Resu lt - Final * Complete Blood Count, with Differential (01/24/2025 8:06 PM EDT) [facility] White Blood Cell Count 9.3 4.0 - 11.0 Thou/uL 01/24/2025 9:07 PM [facility] Platelet Count 364 150 - 450 Thou/uL 01/24/2025 9:07 PM [facility] Hemoglobin 15.2 11.7 - 15.7 g/dL 01/24/2025 9:07 PM [facility] Hematocrit 45.1 35.0 - 47.0 % 01/24/2025 9:07 PM [facility] Red Blood Cell Count 5.10 4.00 - 5.40 Mil/uL 01/24/2025 9:07 PM [facility] MCV 88 80 - 100 fL 01/24/2025 9:07 PM [facility] MCH 29.8 26.0 - 34.0 pg 01/24/2025 9:07 PM [facility] MCHC 33.7 30.0 - 36.0 g/dL 01/24/2025 9:07 PM [facility] RDW 14.1 11.5 - 14.5 % 01/24/2025 9:07 PM [facility] MPV 10.0 7.5 - 12.5 fL 01/24/2025 9:07 PM [facility] Neutrophils Auto 65.3 % 01/25/20 9:07 PM [facility] Immature Granulocytes 1.0 % 01/24/2025 9:07 PM [facility] Lymphocytes Auto 24.4 % 01/25/20 9:07 PM [facility] Monocytes Auto 7.8 % 01/24/2025 9:07 PM [facility] Eosinophils Auto 0.6 % 01/25/20 9:07 PM [facility] Basophils Auto 0.9 % 01/24/2025 9:07 PM [facility] Abs Neutrophils Auto 6.04 2.00 - 7.50 Thou/uL 01/24/2025 9:07 PM [facility] Abs Immature Granulocytes 0.09 0.00 - 0.10 Thou/uL 01/24/2025 9:07 PM [facility] Abs Lymphocytes Auto 2.26 1.50 - 4.50 Thou/uL 01/24/2025 9:07 PM [facility] Abs Monocytes Auto 0.72 0.20 - 1.50 Thou/uL 01/24/2025 9:07 PM [facility] Abs Eosinophils Auto 0.06 0.00 - 0.70 Thou/uL 01/24/2025 9:07 PM [facility] Abs Basophils Auto 0.08 0.00 - 0.20 Thou/uL 01/24/2025 9:07 PM [facility] Blood Blood specimen / Unknown 01/24/2025 8:06 PM EDT 01/24/2025 8:57 PM EDT us Jaswinder Valentine MD LAB BLOOD ORDERABLES Final Res ult [facility] [address] [place] [address], [facility] [address] [place] [address] * (ABNORMAL) Comprehensive Metabolic Panel (01/24/2025 8:06 PM EDT) Glucose 101(H) 65 - 99 mg/dL 01/24/2025 9:59 PM EDT [facility] Comment:Fasting: <100 mg/dL, Non-Fasting: <200 mg/dL (ADA 2004) Blood Urea Nitrogen (BUN) 23(H) 8 - 21 mg/dL 01/24/2025 9:59 PM [facility] Creatinine 0.78 0.40 - 1.10 mg/dL 01/24/2025 9:59 PM [facility] eGFR >90 >59 01/24/2025 9:59 PM [facility] Comment:CKD-EPI (2020) in mL /min/1.73 sq meters. Sodium 141 136 - 145 mmol/L 01/24/2025 9:59 PM [facility] Potassium 3.8 3.4 - 5.3 mmol/L 01/24/2025 9:59 PM [facility] Chloride 108(H) 98 - 107 mmol/L 01/24/2025 9:59 PM [facility] CO2 23 22 - 33 mmol/L 01/24/2025 9:59 PM [facility] Calcium 9.3 8.7 - 10.5 mg/dL 01/24/2025 9:59 PM [facility] Alkaline Phosphatase 59 32 - 122 U/L 01/24/2025 9:59 PM [facility] Aspartate Aminotrans (AST) 15 10 - 50 U/L 01/24/2025 9:59 PM [facility] Alanine Aminotrans (ALT) 17 10 - 50 U/L 01/24/2025 9:59 PM [facility] Bilirubin, Total <0.2(L) 0.2 - 1.0 mg/dL 01/24/2025 9:59 PM EDT [facility] [facility] Protein, Total 6.6 6.3 - 8.3 g/dL 01/24/2025 9:59 PM EDT [facility] Albumin 4.1 3.5 - 5.0 g/dL 01/24/2025 9:59 PM EDT [facility] BUN/Creatinine Ratio 29(H) 10.0 - 25.0 Ratio 01/24/2025 9:59 PM EDT [facility] Globulin 2.5 1.5 - 3.9 g/dL 01/24/2025 9:59 PM EDT [facility] Albumin/Globulin Ratio 1.6 1.0 - 3.0 Ratio 01/24/2025 9:59 PM EDT [facility] Anion Gap 10 7 - 17 01/24/2025 9:59 PM EDT [facility] Blood Blood specimen / Unknown 01/24/2025 8:06 PM EDT 01/24/2025 8:57 PM EDT Jaswinder Valentine MD LAB BLOOD ORDERABLES Final Res ult Performing Organization Address [facility]/[place] [address], [place] [address] * MR Spine Archive for Reference Only (01/22/2025 11:15 AM EDT) Narrative RACHEL - 01/22/2025 11:15 AM EDT This study has been auto finalized and does not contain a result. File Room Provider IMG DIGITIZE FILMS Final Resu lt [place] [phone] from Last 3 Months Insurance Advance Directives [...] 12:17 PM 03/03/2024 9:09 PM Care Teams Buzzsaw Operator Helper Relationship Specialty Start Date End Date Rosalind Vizcarra NP [address] [place] [address] PCP - General Family Medicine 03/03/24 Isis Young, DANE 80 [place] [address] Nurse Navigator Surgery, Neurosurgery 01/25/25 Makayla Campos MD [address] [address] Surgery, Neurosurgery 02/01/25 Magnus Perez MD [address] [place] [phone] Cardiovascular Disease 02/01/25 System, Provider Not In [address] [place] [phone] Hematology Oncology 02/01/25 Mkii Blackwood MD [address] [place] [address] Endocrinology 02/01/25 Raúl Pike MD [address] [place] [address] Gastroenterology 02/01/25 Jorge Moreno DO [address] [place] [address] 201 [place] [address] Immunology 02/01/25 Arturo Bunn MD [address] [place] [address] Otolaryngology 02/01/25 Leatha Mc PA [address] [place] [address] Physician Senior Marketing Coordinator Surgery, Neurosurgery 02/05/25
--- OUTSIDE RECORDS SUMMARY | 2025-04-20 08:39 | XMS_ITS | Encounter Summary ---
Author Organization [facility] Address [address] [place] [address] Care Team Providers Care Associate Professor Of Mathematics Name Role Phone Brett Sharma NP Primary Care Provider + [phone] Isis Young RN Unavailable Tip Campos MD Unavailable Magnus Perez MD Unavailable System, Provider Not In Unavailable Unavaila Miki Diana MD Unavailable [phone] Raúl Pike MD Unavailable Jorge Moreno DO Unavailable Arturo Bunn MD Unavailable Leatha Mc Unavailable [phone] Encounter Details Date Type Department Care Team (Late st Contact Info) Description 04/21/2024 Scanned Document [facility] Plastic & Reconstructive Surgery [address] [place] [address] Mary Solomon LPN [address] [address] Social History Tobacco Use Types Packs/Day Years [...] PM EST Office Visit [facility] Plastic & Reconstructive Surgery [place] 399 [facility] [address] [place] [address] Clyde Martin PA 399 [facility] 210 [place] [address] 04/28/2025 3:45 PM EST Office Visit [facility] [address] [address] Alonzo Root MD 8 [place], [place] [phone] 06/01/2025 10:00 AM EST Office Visit [facility] Neurosurgery [place] 85 [facility] [address] [place] [address] Samara Mendoza PA-C 85 [facility] [address] [place] [address] [phone] documented as of this encounter Visit Diagnoses Not on filedocumented in this encounter Care Teams Associate Professor Of Mathematics Relationship Specialty Start Date End Date Brett Sharma NP [address] [place] [address] PCP - General Family Medicine 03/03/24 Isis Young, RN 80 [place] [address] Nurse Navigator Surgery, Neurosurgery 01/25/25 Tip Campos MD [address] [address] Surgery, Neurosurgery 02/01/25 Magnus Perez MD [address] [place] [phone] Cardiovascular Disease 02/01/25 System, Provider Not In [address] [place] [phone] Hematology Oncology 02/01/25 Miki Blackwood MD [address] [place] [address] Endocrinology 02/01/25 Raúl Pike MD [address] [place] [address] Gastroenterology 02/01/25 Jorge Moreno DO [address] [place] [address] Immunology 02/01/25 Arturo Bunn MD [address] [place] [address] Otolaryngology 02/01/25 Leatha Mc PA [address] [address] Physician Operations Manager Surgery, Neurosurgery 02/05/25 documented as of this encounter
--- OUTSIDE RECORDS SUMMARY | 2025-04-20 08:39 | XMS_ITS | Encounter Summary ---
Author Organization [facility] Address [address] [place] [address] Phone Care Team Providers Care Roofing Laborer Name Role Phone Arturo Lawrence MD, PhD Unavailable [phone] Brett Sharma NP Primary Care Provider + Encounter Details Date Type Department Care Team (Late st Contact Info) Description 10/04/2023 Procedure Pass [facility] Cardiology Echo [facility] [address] [facility], [address] [place] [phone] Social History Tobacco Use Types Packs/Day Years [...] Description 04/29/2025 10:30 AM EST Office Visit [facility] 55 [facility], 5th [place] [address] Ranjit Morley MD 15 [facility] 535 [place] [address] [email or web address] 05/18/2025 8:45 AM EST Evaluation [facility] [address] [place] [address] Charissa Lew AuD [address] [place] [address] [email or web address] 05/18/2025 9:30 AM EST Office Visit [facility] [address] [place] [address] Arturo Bunn MD, PhD [address] [place] [address] [email or web address] 06/08/2025 3:00 PM EST Office Visit [facility] [address] [facility], [address] [place] [address] Miki Blackwood MD 55 [facility] [address] [place] [address] [email or web address] 08/27/2025 9:10 AM EDT Office Visit [facility] 70 [place] [address] Pooja Jacob MD [address] [address] [email or web address] 09/24/2025 10:30 AM EDT Office Visit [facility] [address] [facility], [address] [place] [address] Magnus Perez MD [address] [place] [address] [place] [address] [email or web address] documented as of this encounter Visit Diagnoses Not on filedocumented in this encounter Care Teams Roofing Laborer Relationship Specialty Start Date End Date Brett Sharma, SELWYN [address] [facility] [place] [address] PCP - General Family Medicine 08/16/21 Arturo Lawrence MD, PhD [address] [place] [address] Outpatient [facility] [address] [place] [address] [email or web address] Hematology and Oncology 07/06/17 documented as of this encounter Additional Source Comments The information contained in this document represents components of the legal health record. It is not the complete legal health record.[facility]
--- OUTSIDE RECORDS SUMMARY | 2025-04-20 08:39 | XMS_ITS | Encounter Summary ---
Author Organization [facility] Address [address] [place] [address] Care Team Providers Care Ton Cylinder Inspector Name Role Phone Pcp, No Primary Care Provider Unavailabl Brett Iqbal NP Primary Care Provider [phone] Isis Young RN Unavailable Tip Campos MD Unavailable Magnus Perez MD Unavailable [phone] System, Provider Not In Unavailable Unavaila Miki Diana MD Unavailable Raúl Pike MD Unavailable Jorge Moreno DO Unavailable Arturo Bunn MD Unavailable Leatha Mc Unavailable [phone] Encounter Details Date Type Department Care Team (Late st Contact Info) Description 02/27/2024 Scanned Document [facility] Plastic & Reconstructive Surgery [address] 210 [place] [address] Michael Long MD [address] [place] [address] 210 [place] [address] Social History Tobacco Use Types Packs/Day Years [...] Description 04/26/2025 1:00 PM EST Office Visit [facility] Plastic & Reconstructive Surgery [address] 210 [place] [address] Clyde Martin PA [address] [place] [address] 04/28/2025 3:45 PM EST Office Visit [facility] [address] [address] Alonzo Root MD [address] [place] [address] 06/01/2025 10:00 AM EST Office Visit [facility] Neurosurgery [place] 85 [facility] [address] [place] [address] Samara Mendoza PA-C 85 [facility] [address] [place] [phone] documented as of this encounter Visit Diagnoses Not on filedocumented in this encounter Care Teams Ton Cylinder Inspector Relationship Specialty Start Date End Date Pcp, No PCP - General General Medicine 03/04/19 03/02/24 Brett Sharma NP 262 [facility] [place] [address] PCP - General Family Medicine 03/03/24 Isis Young RN 80 [place] [address] Nurse Navigator Surgery, Neurosurgery 01/25/25 Tip Campos MD [address] [place] [address] Surgery, Neurosurgery 02/01/25 Magnus Perez MD [address] [place] [phone] Cardiovascular Disease 02/01/25 System, Provider Not In [address] [place] [phone] Hematology Oncology 02/01/25 Miki Blackwood MD [address] [place] [address] Endocrinology 02/01/25 Raúl Pike MD [address] [place] [address] Gastroenterology 02/01/25 Jorge Moreno DO [address] [place] [address] Immunology 02/01/25 Arturo Bunn MD [address] [place] [address] Otolaryngology 02/01/25 Leatha Mc PA [address] [address] Physician Applique Cutter Surgery, Neurosurgery 02/05/25 documented as of this encounter
--- OUTSIDE RECORDS SUMMARY | 2025-04-20 08:39 | XMS_ITS | Clinical Summary ---
Author Organization [facility] Prior to 09/19/[address] [place] [address] Care Team Providers Care Truck Headlight Assembler Name Role Phone Brett Sharma Primary Care Provider [phone] Allergies Active Allergy Reactions Criticality Noted Date Comments Amoxicillin-Pot Clavulanate Anaphylaxis High 10/19/2013 Cinnamon 12/31/2023 Doxycycline Anaphylaxis High 05/03/2017 Hydrocodone-Acetaminoph en Swelling 05/03/2017 Ibuprofen Anaphylaxis High 12/31/2023 Latex Rash Low 05/21/2019 Meperidine Swelling 05/03/2017 Morphine 09/12/2021 Other Rash Low 04/04/2017 turnips Oxycodone-Acetaminophen Rash,Swelling Low 8 Prednisone Other (See Comments) Medium 08/28/2022 [place] Hives Medium 04/04/2017 Tramadol Itching Low 09/12/2023 [...] age to complete this topic Care Teams Truck Headlight Assembler Relationship Specialty Start Date End Date Brett Sharma [address] [facility] [place] [address] PCP - General Family Medicine 09/11/21
--- OUTSIDE RECORDS SUMMARY | 2025-04-20 08:39 | XMS_ITS | Encounter Summary ---
Author Organization [facility] Address [address] [place] [address] Care Team Providers Care Uniformer Name Role Phone Brett Sharma NP Primary Care Provider + [phone] Isis Young RN Unavailable [phone] Tip Campos MD Unavailable [phone] Magnus Perez MD Unavailable [phone] System, Provider Not In Unavailable Unavaila Miki Diana MD Unavailable [phone] Raúl Pike MD Unavailable Jorge Moreno DO Unavailable [phone] Arturo Bunn MD Unavailable Leatha Mc Unavailable [phone] Encounter Details Date Type Department Care Team (Late st Contact Info) Description 02/24/2025 Scanned Document [facility] Neurosurgery [address] [address] Tip Campos MD [address] [place] [address] Social History Tobacco Use Types Packs/Day [...] any time in the past 12 m [facility], were you homeless or living in a fdc (including now)? No 02/05/2025 [facility] [...] [facility] Plastic & Reconstructive Surgery [address] [place] [address] Clyde Martin PA 399 [facility] 210 [place] [address] 04/28/2025 3:45 PM EST Office Visit [facility] [address] [address] Alonzo Root MD 988 [place] [address] 06/01/2025 10:00 AM EST Office Visit [facility] Neurosurgery [place] 85 [facility] 1003 [place] [phone] Samara Mendoza PA-C 85 [facility] [address] [place] [phone] documented as of this encounter Goals Goal Patient Goal Type Associated Problems Recent Progress Patient-Stated? Author ST LTG 1 Speech Therapy No Zeina Messer CCC-ASSOCIATE CURATOR Note: Pt will tolerate least restrictive diet without s/s aspiration. ST STG 1 Speech Therapy No Zeina Messer CCC-ASSOCIATE CURATOR Note: Pt will complete an instrumental swallowing evaluation within 2 weeks. Additional goals to be set as indicated. documented as of this encounter Visit Diagnoses Not on filedocumented in this encounter Care Teams Uniformer Relationship Specialty Start Date End Date Brett Sharma NP [address] [place] [address] PCP - General Family Medicine 03/03/24 Isis Young RN 80 [place] [address] Nurse Navigator Surgery, Neurosurgery 01/25/25 Tip Campos MD [address] [address] Surgery, Neurosurgery 02/01/25 Magnus Perez MD [address] [place] [phone] Cardiovascular Disease 02/01/25 System, Provider Not In [address] [place] [phone] Hematology Oncology 02/01/25 Miki Blackwood MD [address] [place] [address] Endocrinology 02/01/25 Raúl Pike MD [address] [place] [address] Gastroenterology 02/01/25 Jorge Moreno DO 269 [facility] 201 [place] [address] Immunology 02/01/25 Arturo Bunn MD [address] [place] [address] Otolaryngology 02/01/25 Leatha Mc PA [address] [address] Physician Shell Shop Supervisor Surgery, Neurosurgery 02/05/25 documented as of this encounter
--- OUTSIDE RECORDS SUMMARY | 2025-04-20 08:39 | XMS_ITS | Encounter Summary ---
Author Organization [facility] Address [address] [place] [address] Care Team Providers Care Test Evaluator Name Role Phone Brett Sharma NP Primary Care Provider + [phone] Isis Young RN Unavailable [phone] Tip Campos MD Unavailable [phone] Magnus Perez MD Unavailable [phone] System, Provider Not In Unavailable Unavaila Miki Diana MD Unavailable [phone] Raúl Pike MD Unavailable [phone] Jorge Moreno DO Unavailable [phone] Arturo Bunn MD Unavailable Leatha Mc Unavailable [phone] Encounter Details Date Type Department Care Team (Late st Contact Info) Description 03/09/2025 Scanned Document [facility] Neurosurgery [address] [address] Leatha Mc PA [address] [address] Social History Tobacco Use Types [...] in a longterm (including now)? No 02/05/2025 [facility] Utilities Answer Date Recorded In the past [...] Description 04/26/2025 1:00 PM EST Office Visit [facility] Plastic & Reconstructive Surgery [address] [place] [address] Clyde Martin PA 399 [facility] 210 [place] [address] 04/28/2025 3:45 PM EST Office Visit [facility] [address] [address] Alonzo Root MD 988 [place] [address] 06/01/2025 10:00 AM EST Office Visit [facility] Neurosurgery [place] 85 [facility] 1003 [place] [address] Samara Mendoza PA-C 85 [facility] [address] [place] [phone] documented as of this encounter Goals Goal Patient Goal Type Associated Problems Recent Progress Patient-Stated? Author ST LTG 1 Speech Therapy No Zeina Messer CCC-TENNIS DESK TEAM MEMBER Note: Pt will tolerate least restrictive diet without s/s aspiration. ST STG 1 Speech Therapy No Zeina Messer CCC-TENNIS DESK TEAM MEMBER Note: Pt will complete an instrumental swallowing evaluation within 2 weeks. Additional goals to be set as indicated. documented as of this encounter Visit Diagnoses Not on filedocumented in this encounter Care Teams Test Evaluator Relationship Specialty Start Date End Date Brett Sharma NP [address] [place] [address] PCP - General Family Medicine 03/03/24 Isis Young RN 80 [place] [address] Nurse Navigator Surgery, Neurosurgery 01/25/25 Tip Campos MD [address] [address] Surgery, Neurosurgery 02/01/25 Magnus Perez MD [address] [place] [phone] Cardiovascular Disease 02/01/25 System, Provider Not In [address] [place] [phone] Hematology Oncology 02/01/25 Miki Blackwood MD [address] [place] [address] Endocrinology 02/01/25 Raúl Pike MD [address] [place] [address] Gastroenterology 02/01/25 Jorge Moreno DO 269 [facility] 201 [place] [address] Immunology 02/01/25 Arturo Bunn MD [address] [place] [address] Otolaryngology 02/01/25 Leatha Mc PA [address] [address] Physician Medication Manager Surgery, Neurosurgery 02/05/25 documented as of this encounter
--- OUTSIDE RECORDS SUMMARY | 2025-04-20 08:39 | XMS_ITS | Encounter Summary ---
Author Organization [facility] Address [address] [place] [address] Care Team Providers Care Welder First Class Name Role Phone Brett Sharma NP Primary Care Provider + [phone] Isis Young RN Unavailable [phone] Tip Campos MD Unavailable [phone] Magnus Perez MD Unavailable [phone] System, Provider Not In Unavailable Unavaila Miki Diana MD Unavailable [phone] Raúl Pike MD Unavailable Jorge Moreno DO Unavailable [phone] Arturo Bunn MD Unavailable Leatha Mc Unavailable [phone] Encounter Details Date Type Department Care Team (Late st Contact Info) Description 03/25/2025 Scanned Document [facility] Neuro[facility] [place] 85 [facility] [address] [place] [address] Samara Mendoza PA-C 85 [facility] [place] [address] [place] [address] Social History Tobacco Use Types Packs/Day [...] any time in the past 12 m [facility], were you homeless or living in a nursing home (including now)? No 02/05/2025 [facility] Utilities Answer Date Recorded In the [...] [place] [facility]ive Surgery [address] [place] [address] Clyde Martin PA 399 [facility] 210 [place] [address] 04/28/2025 3:45 PM EST Office Visit [facility] [address] [address] Alonzo Root MD 988 [place] [address] 06/01/2025 10:00 AM EST Office Visit [facility] Neurosurgery [place] 85 [facility] 1003 [place] [phone] Samara Mendoza PA-C 85 [facility] [address] [place] [phone] documented as of this encounter Goals Goal Patient Goal Type Associated Problems Recent Progress Patient-Stated? Author ST LTG 1 Speech Therapy No Zeina Messer CCC-PRODUCE RUNNER Note: Pt will tolerate least restrictive diet without s/s aspiration. ST STG 1 Speech Therapy No Zeina Messer CCC-PRODUCE RUNNER Note: Pt will complete an instrumental swallowing evaluation within 2 weeks. Additional goals to be set as indicated. documented as of this encounter Visit Diagnoses Not on filedocumented in this encounter Care Teams Welder First Class Relationship Specialty Start Date End Date Brett Sharma NP [address] [place] [address] PCP - General Family Medicine 03/03/24 Isis Young RN 80 [place] [address] Nurse Navigator Surgery, Neurosurgery 01/25/25 Tip Campos MD [address] [address] Surgery, Neurosurgery 02/01/25 Magnus Perez MD [address] [place] [phone] Cardiovascular Disease 02/01/25 System, Provider Not In [address] [place] [phone] Hematology Oncology 02/01/25 Miki Blackwood MD [address] [place] [address] Endocrinology 02/01/25 Raúl Pike MD [address] [place] [address] Gastroenterology 02/01/25 Jorge Moreno DO 269 [facility] 201 [place] [address] Immunology 02/01/25 Arturo Bunn MD [address] [place] [address] Otolaryngology 02/01/25 Leatha Mc PA [address] [address] Physician Associate Director Data & Analytics Surgery, Neurosurgery 02/05/25 documented as of this encounter
--- OUTSIDE RECORDS SUMMARY | 2025-04-20 08:39 | XMS_ITS | Encounter Summary ---
Author Organization [facility] Address [address] [place] [address] Care Team Providers Care On Site Coordinator Name Role Phone Brett Sharma NP Primary Care Provider + [phone] Isis Young RN Unavailable [phone] Tip Campos MD Unavailable Magnus Perez MD Unavailable [phone] System, Provider Not In Unavailable Unavaila Miki Diana MD Unavailable [phone] Raúl Pike MD Unavailable Jorge Moreno DO Unavailable [phone] Arturo Bunn MD Unavailable Leatha Mc Unavailable [phone] Encounter Details Date Type Department Care Team (Late st Contact Info) Description 03/19/2025 Scanned Document [facility] Neuro[facility] [address] [address] Tip Campos MD [address] [place] [address] Social History Tobacco Use Types Packs/Day [...] time in the past 12 m [facility], were you homeless or living in a usp (including now)? No 02/05/2025 [facility] Utilities Answer Date Recorded In the [...] 04/26/2025 1:00 PM EST [facility] [address] [place] [address] Clyde Martin PA 399 [facility] 210 [place] [address] 04/28/2025 3:45 PM EST Office Visit [facility] [address] [address] Alonzo Root MD 988 [place] [address] 06/01/2025 10:00 AM EST [facility] [place] 85 [facility] 1003 [place] [phone] Samara Mendoza PA-C 85 [facility] [address] [place] [phone] documented as of this encounter Goals Goal Patient Goal Type Associated Problems Recent Progress Patient-Stated? Author ST LTG 1 Speech Therapy No Zeina Messer CCC-AREA ATTENDANT Note: Pt will tolerate least restrictive diet without s/s aspiration. ST STG 1 Speech Therapy No Zeina Messer CCC-AREA ATTENDANT Note: Pt will complete an instrumental swallowing evaluation within 2 weeks. Additional goals to be set as indicated. documented as of this encounter Visit Diagnoses Not on filedocumented in this encounter Care Teams On Site Coordinator Relationship Specialty Start Date End Date Brett Sharma NP [address] [place] [address] PCP - General Family Medicine 03/03/24 Isis Young RN 80 [place] [address] Nurse Navigator Surgery, Neurosurgery 01/25/25 Tip Campos MD [address] [address] Surgery, Neurosurgery 02/01/25 Magnus Perez MD [address] [place] [phone] Cardiovascular Disease 02/01/25 System, Provider Not In [address] [place] [phone] Hematology Oncology 02/01/25 Miki Blackwood MD [address] [place] [address] Endocrinology 02/01/25 Raúl Pike MD [address] [place] [address] Gastroenterology 02/01/25 Jorge Moreno DO 269 [facility] 201 [place] [address] Immunology 02/01/25 Arturo Bunn MD [address] [place] [address] Otolaryngology 02/01/25 Leatha Mc PA [address] [address] Physician Transportation Refrigeration Technician Surgery, Neurosurgery 02/05/25 documented as of this encounter
--- OUTSIDE RECORDS SUMMARY | 2025-04-20 08:39 | XMS_ITS | Encounter Summary ---
Author Organization [facility] Address [address] [place] [address] Care Team Providers Care Variety Lathe Operator Name Role Phone Brett Sharma NP Primary Care Provider + [phone] Isis Young RN Unavailable Tip Campos MD Unavailable [phone] Magnus Perez MD Unavailable System, Provider Not In Unavailable Unavaila Miki Diana MD Unavailable [phone] Raúl Pike MD Unavailable Jorge Moreno DO Unavailable Arturo Bunn MD Unavailable Leatha Mc Unavailable [phone] Encounter Details Date Type Department Care Team (Late st Contact Info) Description 03/04/2024 Scanned Document [facility]astic & Reconstructive Surgery [address] [place] [address] Michael Long MD [address] [place] [address] 210 [place] [address] Social History Tobacco Use Types Packs/Day Years [...] Description 04/26/2025 1:00 PM EST Office Visit [facility] Reconstructive Surgery [place] [address] [address] Clyde Martin PA [address] [place] [address] 04/28/2025 3:45 PM EST Office Visit [facility] [address] [address] Alonzo Root MD [address] [place] [address] 06/01/2025 10:00 AM EST Office Visit [facility] Neurosurgery [place] 85 [facility] [address] [place] [phone] Samara Mendoza PA-C [address] [phone] documented as of this encounter Visit Diagnoses Not on filedocumented in this encounter Care Teams Variety Lathe Operator Relationship Specialty Start Date End Date Brett Sharma NP [address] [place] [address] PCP - General Family Medicine 03/03/24 Isis Young, DANE 80 [place] [address] Nurse Navigator Surgery, Neurosurgery 01/25/25 Tip Campos MD [address] [address] Surgery, Neurosurgery 02/01/25 Magnus Perez MD [address] [place] [phone] Cardiovascular Disease 02/01/25 System, Provider Not In [address] [place] [phone] Hematology Oncology 02/01/25 Miki Blackwood MD [address] [place] [address] Endocrinology 02/01/25 Raúl Pike MD [address] [place] [address] Gastroenterology 02/01/25 Jorge Moreno DO [address] [place] [address] Immunology 02/01/25 Arturo Bunn MD [address] [place] [address] Otolaryngology 02/01/25 Leatha Mc PA [address] [address] Physician Hand Clerical Verifier Surgery, Neurosurgery 02/05/25 documented as of this encounter
--- OUTSIDE RECORDS SUMMARY | 2025-04-20 08:39 | XMS_ITS | Clinical Summary ---
Author Organization [facility] Address 114 [place] [address] Phone Care Team Providers Care Facing Machine Operator Name Role Phone Brett Sharma NP Primary Care Provider Allergies Active Allergy Reactions Criticality Noted Date Comments [place] Oil Rash Low 04/04/2017 Amoxicillin-Pot Clavulanate Anaphylaxis High 10/19/2013 Cinnamon Unknown Medium 12/31/2023 Doxycycline Anaphylaxis High 05/03/2017 Flavoring Agent (Bulk) Rash Low 04/04/2017 Hydrocodone-Acetaminophen Swelling 05/03/2017 Ibuprofen Anaphylaxis High 12/31/2023 Latex Rash Low 05/21/2019 Meperidine Swelling 05/03/2017 Morphine 09/12/2021 Other Rash Low 04/04/2017 turnips Oxycodone-Acetaminophen Rash,Swelling Low 8 Prednisone Medium 08/28/2022 Other Reaction(s): Other (See Comments) Stone Hives Medium 04/04/2017 Tramadol Itching Low 09/12/2023 [...] your loved ones. For example, early childhood coordinator or elderly care for an older adult? [...] EST Office Visit Obstetrics and Gynecology - [address] [place] [phone] Faustina Weaver MD [address] [facility] 1026 [place] [address] Health Maintenance Due Date Last Done Comments [...] Results * Cervical Cancer Screening: HPV (12/31/2023) [facility] Cervical Cancer Screening: HPV Negative, Abstracted Historical Provider HEALTH MAINTENANCE Final Result * HIV Screening (10/17/2022) [facility] HIV Screening Abstracted [facility] [place] Provider HEALTH MAINTENANCE Final Result * Hepatitis C Screening (10/17/2022) [facility] Hepatitis C Screening Abstracted [facility] [place] Provider HEALTH MAINTENANCE Final Result from Last 3 Months or Most Recently Relevant to Health Maintenance Insurance Member Subscriber Plan / Payer (Ef fective 2019-Present) Name:JULIENNE WINNI Relation to Subscriber:Self Name:Julienne Winni Lolis Payer ID:[id number] ([facility]) Type:Not on file Address: [facility] [id number] [place] [address] Care Teams Facing Machine Operator Relationship Specialty Start Date End Date Brett Sharma NP 262 [place], [place] PCP - General Family Medicine 09/11/21
--- OUTSIDE RECORDS SUMMARY | 2025-04-20 08:39 | XMS_ITS | Encounter Summary ---
Author Organization [facility] Address [address] [place] [address] Care Team Providers Care Epic Application Coordinator Name Role Phone Brett Sharma NP Primary Care Provider + [phone] Isis Young RN Unavailable [phone] Tip Campos MD Unavailable Magnus Perez MD Unavailable [phone] System, Provider Not In Unavailable Unavaila Miki Diana MD Unavailable [phone] Ralú Pike MD Unavailable Jorge Moreno DO Unavailable [phone] Arturo Bunn MD Unavailable Leatha Mc Unavailable [phone] Encounter Details Date Type Department Care Team (Late st Contact Info) Description 03/19/2025 Scanned Document [facility] Neurosurgery [address] [address] Tip Campos MD [address] [place] [address] Social History Tobacco Use Types Packs/Day [...] were you homeless or living in a group home (including now)? No 02/05/2025 [facility] Utilities Answer Date Recorded In the [...] Description 04/26/2025 1:00 PM EST Office Visit [facility] Plastic & Reconstructive Surgery [address] [place] [address] Clyde Martin PA 399 [facility] 210 [place] [address] 04/28/2025 3:45 PM EST Office Visit [facility] [address] [address] Alonzo Root MD 988 [place] [address] 06/01/2025 10:00 AM EST Office Visit [facility] Neurosurgery [place] 85 [facility] 1003 [place] [phone] Samara Mendoza PA-C 85 [facility] [address] [place] [phone] documented as of this encounter Goals Goal Patient Goal Type Associated Problems Recent Progress Patient-Stated? Author ST LTG 1 Speech Therapy No Zeina Messer CCC-QA AUTOMATION DEVELOPER Note: Pt will tolerate least restrictive diet without s/s aspiration. ST STG 1 Speech Therapy No Zeina Messer CCC-QA AUTOMATION DEVELOPER Note: Pt will complete an instrumental swallowing evaluation within 2 weeks. Additional goals to be set as indicated. documented as of this encounter Visit Diagnoses Not on filedocumented in this encounter Care Teams Epic Application Coordinator Relationship Specialty Start Date End Date Brett Sharma NP [address] [place] [address] PCP - General Family Medicine 03/03/24 Isis Young RN 80 [place] [address] Nurse Navigator Surgery, Neurosurgery 01/25/25 Tip Campos MD [address] [address] Surgery, Neurosurgery 02/01/25 Magnus Perez MD [address] [place] [phone] Cardiovascular Disease 02/01/25 System, Provider Not In [address] [place] [phone] Hematology Oncology 02/01/25 Miki Blackwood MD [address] [place] [address] Endocrinology 02/01/25 Raúl Pike MD [address] [place] [address] Gastroenterology 02/01/25 Jorge Moreno DO 269 [facility] 201 [place] [address] Immunology 02/01/25 Arturo Bunn MD [address] [place] [address] Otolaryngology 02/01/25 Leatha Mc PA [address] [address] Physician Scow Hand Surgery, Neurosurgery 02/05/25 documented as of this encounter
--- OUTSIDE RECORDS SUMMARY | 2025-04-20 08:39 | XMS_ITS | Encounter Summary ---
Author Organization [facility] Address [address] [place] [address] Care Team Providers Care Spring Tester Name Role Phone Brett Sharma NP Primary Care Provider + [phone] Isis Young RN Unavailable [phone] Tip Campos MD Unavailable [phone] Magnus Perez MD Unavailable [phone] System, Provider Not In Unavailable Unavaila Miki Diana MD Unavailable [phone] Raúl Pike MD Unavailable Jorge Moreno DO Unavailable [phone] Arturo Bunn MD Unavailable Leatha Mc Unavailable [phone] Encounter Details Date Type Department Care Team (Late st Contact Info) Description 02/09/2025 Scanned Document [facility] Neurosurgery [address] [phone] Neurosurgery, Scan Social History Tobacco Use Types [...] any time in the past 12 m [facility], were you homeless or living in a [place] [facility] facility (including now)? No 02/05/2025 [facility] Utilities Answer Date Recorded In [...] PM EST Office Visit [facility] Plastic & Reconstructive Surgery [place] 399 [facility] 210 [place] [address] Clyde Martin PA [address] [place] [address] 210 [place] [address] 04/28/2025 3:45 PM EST Office Visit [facility] [address] [phone] Alonzo Root MD 8 [place], [place] [phone] 06/01/2025 10:00 AM EST Office Visit [facility] Neurosurgery [place] [address] [phone] Samara Mendoza PA-C [address] [address] documented as of this encounter Visit Diagnoses Not on filedocumented in this encounter Care Teams Spring Tester Relationship Specialty Start Date End Date Brett Sharma NP 262 [place] [address] PCP - General Family Medicine 03/03/24 Isis Young RN 80 [place] [address] Nurse Navigator Surgery, Neurosurgery 01/25/25 Tip Campos MD [address] [place] [address] Surgery, Neurosurgery 02/01/25 Magnus Perez MD [address] [place] [phone] Cardiovascular Disease 02/01/25 System, Provider Not In [address] [place] [phone] Hematology Oncology 02/01/25 Miki Blackwood MD 15 [place] [address] Endocrinology 02/01/25 Raúl Pike MD [address] [place] [address] Gastroenterology 02/01/25 Jorge Moreno DO [address] [place] [address] 201 [place] [address] Immunology 02/01/25 Arturo Bunn MD [address] [place] [address] Otolaryngology 02/01/25 Leatha Mc PA [address] [place] [address] 1003 [place] [address] Physician Manager Operations Surgery, Neurosurgery 02/05/25 documented as of this encounter
--- OUTSIDE RECORDS SUMMARY | 2025-04-20 08:39 | XMS_ITS | Encounter Summary ---
Author Organization [facility] Address 399 [facility] [address] [place] [address] Phone Care Team Providers Care Process Laboratory Specialist Name Role Phone Arturo Lawrence MD, PhD Unavailable [phone] Brett Sharma NP Primary Care Provider + Encounter Details Date Type Department Care Team (Late st Contact Info) Description 11/30/2021 Procedure Pass [facility] Cardiology [address] [facility], [address] [place] [address] Social History Tobacco Use Types Packs/Day Years [...] Description 04/29/2025 10:30 AM EST Office Visit [facility] 55 [facility], 5th [place] [address] Ranjit Morley MD [address] [address] [email or web address] 05/18/2025 8:45 AM EST Evaluation [facility] [address] [address] Charissa Lew AuD 243 [place] [address] [email or web address] 05/18/2025 9:30 AM EST Office Visit [facility] [address] [place] [address] Arturo Bunn MD, PhD 243 [place] [address] [email or web address] 06/08/2025 3:00 PM EST Office Visit [facility] 15 [facility], [address] [place] [address] Miki Blackwood MD [address] [place] [address] [address] [place] [address] [email or web address] 08/27/2025 9:10 AM EDT Office Visit [facility] 70 [place] [address] Pooja Jacob MD [address] [address] [email or web address] 09/24/2025 10:30 AM EDT Office Visit [facility] 52 [facility], [address] [place] [address] Magnus Perez MD 55 [facility] Y[facility] [address] [place] [address] [email or web address] documented as of this encounter Visit Diagnoses Not on filedocumented in this encounter Care Teams Process Laboratory Specialist Relationship Specialty Start Date End Date Brett Sharma NP [address] [place] [address] PCP - General Family Medicine 08/16/21 Arturo Lawrence MD, PhD [address] [place] [address] [facility] [address] [place] [address] [email or web address] Hematology and Oncology 07/06/17 documented as of this encounter Additional Source Comments The information contained in this document represents components of the legal health record. It is not the complete legal health record.[facility]
--- OUTSIDE RECORDS SUMMARY | 2025-04-20 08:39 | XMS_ITS | Patient Health Record ---
Author Organization [facility] Address [address] [place] [address] Care Team Providers Care Claims Processor Name Role Phone Rylee Dang Primary Care Provider Raúl Turner Jr Unavailable [phone] Allergies Allergen (clinical drug ingredient) Drug/Non Drug [...] Test Reviewed date:09/09/2024 08:27:13 AM Interpretation: Performing Lab:[facility], [address] [place] [phone] Notes/Report: Urine NEGATIVE NEGATIVE This test was developed to detect early . False negative results may occur after the 5th - 7th week of when using this test method. If clinically indicated, consider a serum hCG. 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 Problem Dysphagia (65249267) Dysphagia (R13.10) Active confirmed Problem Gastroesophageal reflux disease (686011932) Gastroesophageal reflux disease (K21.9) Active confirmed Problem Elevated liver enzymes level (461443714) Elevated liver function tests (R79.89) Active confirmed Problem Dysphagia (70226596) Dysphagia, unspecified type (R13.10) Active confirmed Problem Hepatic hemangioma (52849197) Hepatic hemangioma (D18.03) Active confirmed Problem Elevated liver enzymes level (464793468) Elevated liver function tests (R94.5) Active confirmed Problem Gastroesophageal reflux disease (741657007) Gastroesophageal reflux disease, unspecified whether esophagitis present (K21.9) Active confirmed Encounters Encounter Location Date Provider Diagnosis [facility] [address] [place] [phone] 09/08/2024 Raúl Pike Jr Gamino esophagus K22.70 [facility] [address] [place] [phone] 09/11/2024 Raúl Pike Jr [facility] [address] [place] [phone] 09/16/2024 Raúl Pike Jr Assessments Encounter Date [...] Insured Coverage Start Date Coverage End Date [facility] [id number] [place] [id number] ONDINA WINN Self - patient is the [...]
--- OUTSIDE RECORDS SUMMARY | 2025-04-20 08:39 | XMS_ITS | Encounter Summary ---
Author Organization [facility] Address [address] [address] Phone Care Team Providers Care Plant Engineering Manager Name Role Phone Pcp, Not Required Primary Care Provider Unavaila Arturo Tong MD, PhD Unavailable [phone] Rylee Zendejas MOTOR VEHICLE ASSEMBLER Primary Care Provider Unknown, Unknown Primary Care Provider Rylee Sanchez MOTOR VEHICLE ASSEMBLER Primary Care Provider Brett Sharma MOTOR VEHICLE ASSEMBLER Primary Care Provider + Encounter Details Date Type Department Care Team (Late st Contact Info) Description 04/07/2019 Transcribe Orders [facility] Phleb Main 30 [place] [address] Arturo Lawrence MD, PhD [address] [place] [address] [address] [email or web address] Pigment cirrhosis (Primary Dx) Social [...] Description 04/29/2025 10:30 AM EST Office Visit [facility] 55 [facility], 5th [place] [address] Ranjit Morley MD 15 [facility] 535 [place] [address] [email or web address] 05/18/2025 8:45 AM EST Evaluation [facility] [address] [place] [address] Charissa Lew AuD [address] [place] [address] [email or web address] 05/18/2025 9:30 AM EST Office Visit [facility] [address] [place] [address] Arturo Bunn MD, PhD [address] [place] [email or web address] 06/08/2025 3:00 PM EST Office Visit [facility] [address] [facility], [address] [place] [address] Miki Blackwood MD 55 [facility] [address] [place] [address] [email or web address] 08/27/2025 9:10 AM EDT Office Visit [facility] 70 [place] [address] Pooja Jacob MD [address] [address] [email or web address] 09/24/2025 10:30 AM EDT Office Visit [facility] [address] [facility], [address] [place] [address] Magnus Perez MD [address] [facility] [address] [place] [address] [email or web address] documented as of this encounter Results * Ferritin (04/07/2019 9:28 AM EST) FERRITIN 22 13 - 150 ug/L [facility] Blood 04/07/2019 9:28 AM EST 04/07/2019 9:30 AM EST us Arturo Lawrence MD, PhD LAB BLOOD BKR ORDERABL ES Final Result Performing Organization Address [facility] de Phone Number [address] [address] * Iron and iron binding capacity (04/07/2019 9:28 AM EST) IRON 67 30 - 160 ug/dL [facility] IRON BINDING CAPACITY 230 228 - 428 ug/dL [facility] TRANSFERRIN SATURAT. 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 documented in this encounter Care Teams Plant Engineering Manager Relationship Specialty Start Date End Date Pcp, Not Required PCP - General 08/24/16 04/26/19 Rylee Zendejas NP [address] [place] [address] [email or web address] PCP - General Family Medicine 04/27/19 06/15/19 Unknown, Cesario, [address] [place] [address] PCP - General 06/16/19 06/22/19 Rylee Zendejas, MOTOR VEHICLE ASSEMBLER [address] [place] [address] [place] [address] [email or web address] PCP - General Family Medicine 06/23/19 08/15/21 Brett Sharma, SELWYN [address] [place] [address] [place] [address] PCP - General Family Medicine 08/16/21 Arturo Lawrence MD, PhD [address] [place] [address] [facility] [address] [place] [address] [email or web address] Hematology and Oncology 07/06/17 documented as of this encounter Additional Source Comments The information contained in this document represents components of the legal health record. It is not the complete legal health record.[facility]
--- OUTSIDE RECORDS SUMMARY | 2025-04-20 08:39 | XMS_ITS | Encounter Summary ---
Author Organization [facility] Address [address] [place] [address] Care Team Providers Care Avionics Test Technician Name Role Phone Pcp, No Primary Care Provider Unavailabl Brett Iqbal NP Primary Care Provider [phone] Isis Young RN Unavailable [phone] Tip Campos MD Unavailable Magnus Perez MD Unavailable System, Provider Not In Unavailable Unavaila Miki Diana MD Unavailable Raúl Pike MD Unavailable Jorge Moreno DO Unavailable [phone] Arturo Bunn MD Unavailable Leatha Mc Unavailable [phone] Encounter Details Date Type Department Care Team (Late st Contact Info) Description 02/27/2024 Scanned Document [facility] Plastic & Reconstructive Surgery [address] 210 [place] [phone] Michael Long MD [address] [place] [address] 210 [place] [address] Social History Tobacco Use Types Packs/Day Years [...] Description 04/26/2025 1:00 PM EST Office Visit [facility] Plastic & Reconstructive Surgery [address] 210 [place] [address] Clyde Martin PA [address] [place] [address] 04/28/2025 3:45 PM EST Office Visit [facility] [address] [address] Alonzo Root MD [address] [place] [address] 06/01/2025 10:00 AM EST Office Visit [facility] Neurosurgery [place] 85 [facility] [address] [place] [address] Samara Mendoza PA-C 85 [facility] [address] [place] [phone] documented as of this encounter Visit Diagnoses Not on filedocumented in this encounter Care Teams Avionics Test Technician Relationship Specialty Start Date End Date Pcp, No PCP - General General Medicine 03/04/19 03/02/24 Brett Sharma NP 262 [facility] [place] [address] PCP - General Family Medicine 03/03/24 Isis Young RN 80 [place] [address] Nurse Navigator Surgery, Neurosurgery 01/25/25 Tip Campos MD [address] [place] [address] Surgery, Neurosurgery 02/01/25 Magnus Perez MD [address] [place] [phone] Cardiovascular Disease 02/01/25 System, Provider Not In [address] [place] [address] Hematology Oncology 02/01/25 Miki Blackwood MD [address] [place] [address] Endocrinology 02/01/25 Raúl Pike MD [address] [place] [address] Gastroenterology 02/01/25 Jorge Moreno DO [address] [place] [address] Immunology 02/01/25 Arturo Bunn MD [address] [place] [address] Otolaryngology 02/01/25 Leatha Mc PA [address] [address] Physician Elevator Service Technician Surgery, Neurosurgery 02/05/25 documented as of this encounter
--- OUTSIDE RECORDS SUMMARY | 2025-04-20 08:39 | XMS_ITS | Encounter Summary ---
Author Organization [facility] Address [address] [place] [address] Care Team Providers Care Still Operator Batch Or Continuous Name Role Phone Brett Sharma NP Primary Care Provider + [phone] Isis Young RN Unavailable [phone] Tip Campos MD Unavailable [phone] Magnus Perez MD Unavailable [phone] System, Provider Not In Unavailable Unavaila Miki Diana MD Unavailable [phone] Raúl Pike MD Unavailable Jorge Moreno DO Unavailable [phone] Arturo Bunn MD Unavailable Leatha Mc Unavailable [phone] Encounter Details Date Type Department Care Team (Late st Contact Info) Description 02/17/2025 Scanned Document [facility] Neurosurgery [address] [address] Leatha Mc PA [address] [address] Social History Tobacco Use Types [...] any time in the past 12 [facility], were you homeless or living in a long term (including now)? No 02/05/[address] [facility] Utilities Answer Date Recorded In the [...] 1:00 PM EST Office Visit [facility] Plastic & Reconstructive Surgery [address] [place] [address] Clyde Martin PA 399 [facility] 210 [place] [address] 04/28/2025 3:45 PM EST Office Visit [facility] [address] [phone] Alonzo Root MD [address] [place] [address] 06/01/2025 10:00 AM EST Office Visit [facility] Neurosurgery [place] [address] [phone] Samara Mendoza PA-C [address] [address] documented as of this encounter Visit Diagnoses Not on filedocumented in this encounter Care Teams Still Operator Batch Or Continuous Relationship Specialty Start Date End Date Brett Sharma NP 262 [place] [address] PCP - General Family Medicine 03/03/24 Isis Young RN 80 [place] [address] Nurse Navigator Surgery, Neurosurgery 01/25/25 Tip Campos MD [address] [address] Surgery, Neurosurgery 02/01/25 Magnus Perez MD [address] [place] [phone] Cardiovascular Disease 02/01/25 System, Provider Not In [address] [place] [address] [address] Hematology Oncology 02/01/25 Miki Blackwood MD 15 [place] [address] Endocrinology 02/01/25 Raúl Pike MD [address] [place] [address] Gastroenterology 02/01/25 Jorge Moreno DO 269 [facility] 201 [place] [address] Immunology 02/01/25 Arturo Bunn MD [address] [place] [address] Otolaryngology 02/01/25 Leatha Mc PA 85 [facility] [address] [place] [address] Physician Adjutant General Surgery, Neurosurgery 02/05/25 documented as of this encounter
--- OUTSIDE RECORDS SUMMARY | 2025-04-20 08:39 | XMS_ITS | Encounter Summary ---
Author Organization [facility] Address [address] [place] [address] Care Team Providers Care Tattoo And Body Artist Name Role Phone Brett Sharma NP Primary Care Provider [phone] Isis Young RN Unavailable Tip Campos MD Unavailable [phone] Magnus Perez MD Unavailable System, Provider Not In Unavailable Unavaila Miki Diana MD Unavailable [phone] Raúl Pike MD Unavailable [phone] Jorge Moreno DO Unavailable Arturo Bunn MD Unavailable Leatha Mc Unavailable [phone] Encounter Details Date Type Department Care Team (Late st Contact Info) Description 03/04/2024 Scanned Document [facility] Plastic & Reconstructive Surgery [address] [place] [address] Michael Long MD [address] [place] [address] 210 [place] [address] Social History Tobacco Use Types Packs/Day Years [...] Description 04/26/2025 1:00 PM EST Office Visit [facility] Plastic & Reconstructive Surgery [place] [address] [address] Clyde Martin PA [address] [place] [address] 04/28/2025 3:45 PM EST Office Visit [facility] [address] [address] Alonzo Root MD [address] [place] [address] 06/01/2025 10:00 AM EST Office Visit [facility] Neurosurgery [place] 85 [facility] [address] [place] [phone] Samara Mendoza PA-C [address] [phone] documented as of this encounter Visit Diagnoses Not on filedocumented in this encounter Care Teams Tattoo And Body Artist Relationship Specialty Start Date End Date Brett Sharma NP [address] [place] [address] PCP - General Family Medicine 03/03/24 Isis Young, DANE 80 [place] [address] Nurse Navigator Surgery, Neurosurgery 01/25/25 Tip Campos MD [address] [address] Surgery, Neurosurgery 02/01/25 Magnus Perez MD [address] [place] [phone] Cardiovascular Disease 02/01/25 System, Provider Not In [address] [place] [phone] Hematology Oncology 02/01/25 Miki Blackwood MD [address] [place] [address] Endocrinology 02/01/25 Raúl Pike MD [address] [place] [address] Gastroenterology 02/01/25 Jorge Moreno DO [address] [place] [address] Immunology 02/01/25 Arturo Bunn MD [address] [place] [address] Otolaryngology 02/01/25 Leatha Mc PA [address] [address] Physician Pulp Mixer Surgery, Neurosurgery 02/05/25 documented as of this encounter
--- OUTSIDE RECORDS SUMMARY | 2025-04-20 08:40 | XMS_ITS | Clinical Summary ---
Author Organization [facility] Address [address] [address] Phone Care Team Providers Care Telephone Interceptor Operator Name Role Phone Arturo Lawrence MD, PhD Unavailable [phone] Brett Sharma NP Primary Care Provider + Allergies Active Allergy Reactions Criticality Noted Date Comments Blue Earth Oil Rash Low 04/04/2017 Amoxicillin-Pot Clavulanate Anaphylaxis High 10/19/2013 Flavoring Agent (Bulk) Rash Low 04/04/2017 Meperidine Swelling 05/03/2017 Doxycycline Hyclate Anaphylaxis High 05/03/2017 Ibuprofen 05/23/2022 Throat tightness feels like asthma attack Latex, Natural Rubber Rash Low 05/21/2019 Morphine Itching,Swelling 10/19/2013 Other 08/28/2022 turnip Oxycodone-Acetaminophen Swelling 05/03/2017 Ok with tylenol Prednisone Neuropathy Medium 08/28/2022 [place] Hives Medium 04/04/2017 Tramadol Itching Low 09/12/2023 Itchy throat Valacyclovir Neuropathy Medium 08/28/2022 Hydrocodone-Acetaminophe n Swelling 05/03/2017 Ok with tylenol Medications albuterol 90 mcg/actuation inhaler Inhale 2 puffs into the lungs every 6 (six) hours as needed for wheezing. 1 Inhaler 0 Active budesonide-formot anahi (SYMBICORT) 160-4.5 mcg/actuation inhaler 2 (two) times [...] 90 tablet 3 5 09/09/19 26 Active levoFLOXacin (LEVAQUIN) 750 MG tabletIndications :Acute non-recurrent pansinusitis Take 1 tablet (750 mg total) by mouth daily for 7 days. 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 A prior echocardiogram reports mild posterior mitral [...] the study from July 2017 done in [facility]. She will try to send me [...] repeat echocardiogram in July 2018 at the [facility] facility and then one week later an office visit with me to review the findings. Follow up in July 2018, one week after the repeat echocardiogram. 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 Lawrence for hemochromatosis and receives therapeutic phlebotomy. There is a plan from her rewrite editor, Dr. Castle at [place] to perform a cardiac MRI to assess [...] Encounters Date Type Department Care Team Description 04/17/2025 4:00 PM EST Telemedicine [facility] Urgent Care [address] [place] [address] Jen Cuenca Acute non-recurrent pansinusitis (Primary Dx) 04/17/2025 12:40 PM EST Telemedicine [facility] [address] [place] [address] Armen Rodriguez CNP Acute non-recurrent pansinusitis (Primary Dx) 02/01/2025 Telephone [facility] Cardiology [address] [place] [address] Magnus Perez MD 01/25/2025 Telephone [facility] [address] [facility], [address] [place] [address] Magnus Perez MD 01/20/2025 Ancillary Orders [facility] Imaging [address] [place] [address] Unknown, Cesario, 01/19/2025 4:26 PM EDT - 01/19/2025 11:59 PM EDT Hospital Encounter [facility] Main 30 [place] [address] Jorge Moreno, DO Discharge Disposition: Home or Self Care 01/19/2025 Transcribe Orders [facility] Phleb Main 30 [place] [address] Jorge Moreno, DO Adverse food reaction, subsequent encounter (Primary Dx); Allergy to other foods from Last 3 Months Immunizations Immunization Administration [...] Description 04/29/2025 10:30 AM EST Office Visit [facility] 55 [facility], 5th [place] [address] Ranjit Morley MD [address] [place] [address] [email or web address] 05/18/2025 8:45 AM EST Evaluation [facility] Aud[facility] [address] [place] [address] Charissa Lew AuD [address] [place] [address] [email or web address] 05/18/2025 9:30 AM EST Office Visit [facility] [address] [place] [address] Arturo Bunn MD, PhD [address] [place] [address] [email or web address] 06/08/2025 3:00 PM EST Office Visit [facility] 15 [facility], [address] [place] [address] Miki Blackwood MD [address] [place] [address] [address] [place] [address] [email or web address] 08/27/2025 9:10 AM EDT Office Visit [facility] 70 [place] [address] Pooja Jacob MD [address] [address] [email or web address] 09/24/2025 10:30 AM EDT Office Visit [facility] [address] [facility], [address] [place] [address] Magnus Perez MD [address] [address] [email or web address] Health Maintenance Due Date Last [...] 12/30/2026 12/31/2023 HEPATITIS C SCREENING Completed 10/17/2022 INFLUENZA VACCINE Completed 01/22/2025, , 12/29/2019, Additional history exists SMOKING STATUS SCREENING (Once After 26 Yrs) Completed 04/17/2025 HEPATITIS A VACCINES Aged Out No long [...] this topic Medical Devices Implanted Type Area Cow Washer Device Identifier Shelf Expiration Date Model / Serial / Lot Dental-Left Upper Procedures Procedure Name Priority Date/Time Associated Diagnosis Comments CINNAMON, IGE Routine 01/19/2025 4:41 PM EDT Adverse food reaction, subsequent encounter Allergy to other foods IMMUNOGLOBULIN E, TOTAL Routine 01/20/20 4:41 PM EDT Anaphylaxis, subsequent encounter THYROID STIMULATING HORMONE (TSH) Routine 12/24/2024 4:54 PM EDT Hypothyroidism, postop Thyroid cancer from Last 3 Months or Most Recently Relevant to Health Maintenance Results * Cinnamjori, IgE (01/19/2025 4:41 PM EDT) ALLAN, IGE <0.10 <0.70 kU/L [facility]PATH SUPERIOR Comment: (NOTE) Class 0 (Negative <0.10) ADDITIONAL INFORMATION This test was developed and its performance characteristics determined by [facility] in a manner consistent with CLIA requirements. This test has not been cleared or approved by the U.S. Food and Drug Administration. Blood 01/19/2025 4:41 PM EDT 01/19/2025 4:47 PM EDT [facility] LAB BLOOD ORDERABLES Final R esult Performing Organization Address City/[facility]/ZIP Co de Phone Number [facility]PATH SUPERIOR [place] [address] * Immunoglobulin E, total (01/19/2025 4:41 PM EDT) Pathologist [facility] IGE 27.8 <=214 kU/L [facility]/PATH SUPERIOR Blood 01/19/2025 4:41 PM EDT 01/19/2025 4:47 PM EDT [facility] LAB BLOOD BKR ORDERABLES Fin al Result Performing Organization Address City/[facility]/ZIP Co de Phone Number [facility] LAB MED/PATH SUPERIOR [address] [place] [address] * TSH (12/24/2024 4:54 PM EDT) Pathologist [facility] Department TSH 0.47 0.27 - 4.20 uIU/mL [facility] Blood 12/24/2024 4:54 PM EDT 12/24/2024 5:01 PM EDT us Miki Blackwood MD LAB BLOOD BKR ORDERABLES F inal Result [address] [address] from Last 3 Months or Most Recently Relevant to Health Maintenance Insurance [employer] PPO AETNA PPO AETNA PPO AETNA PPO AET PPO AETNA PPO AETNA PPO AETNA PPO AETNA PPO AETNA PPO Care Teams Telephone Interceptor Operator Relationship Specialty Start Date End Date Brett Sharma NP [address] [place] [address] PCP - General Family Medicine 08/16/21 Arturo Lawrence MD, PhD [address] [place] [address] [address] [email or web address] Hematology and Oncology 07/06/17 Additional Source Comments The information contained in this document represents components of the legal health record. It is not the complete legal health record.[facility]
--- OUTSIDE RECORDS SUMMARY | 2025-04-20 08:40 | XMS_ITS | Encounter Summary ---
Author Organization [facility] Address 399 [facility] [address] [place] [address] Phone Care Team Providers Care Casino Enforcement Agent Name Role Phone Pcp, Not Required Primary Care Provider Arturo Castillo MD, PhD Unavailable [phone] Rylee Zendejas SKIN WASHER Primary Care Provider Unknown, Unknown Primary Care Provider Rylee Sanchez SKIN WASHER Primary Care Provider Brett Sharma SKIN WASHER Primary Care Provider + Encounter Details Date Type Department Care Team (Late st Contact Info) Description 02/03/2018 Procedure Pass [facility] [address] [place] [address] Social History Tobacco Use Types Packs/Day Years [...] Description 04/29/2025 10:30 AM EST Office Visit [facility] 55 [facility], 5th [place] [address] Ranjit Morley MD [address] [place] [address] [email or web address] 05/18/2025 8:45 AM EST Evaluation [facility] [address] [place] [address] Charissa Lew AuD 243 [place] [address] [email or web address] 05/18/2025 9:30 AM EST Office Visit [facility] [address] [place] [address] Arturo Bunn MD, PhD [address] [place] [address] [email or web address] 06/08/2025 3:00 PM EST Office Visit [facility] Thyroid Associates 15 [facility], [address] [place] [address] Miki Blackwood MD [address] [place] [address] [address] [place] [address] [email or web address] 08/27/2025 9:10 AM EDT Office Visit [facility] 70 [place] [address] Pooja Jacob MD [address] [place] [address] [email or web address] 09/24/2025 10:30 AM EDT Office Visit [facility] Cardiology Clinic 52 [facility], [address] [place] [address] Magnus Perez MD 55 [facility] YAW [address]B [place] [address] [email or web address] documented as of this encounter Visit Diagnoses Not on filedocumented in this encounter Care Teams Casino Enforcement Agent Relationship Specialty Start Date End Date Pcp, Not Required PCP - General 08/24/16 04/26/19 Rylee Zendejas NP [address] [place] [address] [email or web address] PCP - General Family Medicine 04/27/19 06/15/19 Unknown, Cesario, [address] [place] [address] PCP - General 06/16/19 06/22/19 Rylee Zendejas NP [address] [place] [address] [place] [address] [email or web address] PCP - General Family Medicine 06/23/19 08/15/21 Brett Sharma, SELWYN [address] [place] [address] [place] [address] PCP - General Family Medicine 08/16/21 Arturo Lawrence MD, PhD [address] [place] [address] Out[facility] [address] [place] [address] AURELIA@[email or web address] Hematology and Oncology 07/06/17 documented as of this encounter Additional Source Comments The information contained in this document represents components of the legal health record. It is not the complete legal health record.[facility]
--- OUTSIDE RECORDS SUMMARY | 2025-04-20 08:40 | XMS_ITS | Encounter Summary ---
Author Organization [facility] Address [address] [facility] [address] [place] [address] Phone Care Team Providers Care Event Marketing Specialist Name Role Phone Arturo Lawrence MD, PhD Unavailable [phone] Brett Sharma NP Primary Care Provider + Encounter Details Date Type Department Care Team (Late st Contact Info) Description 02/12/2023 Procedure Pass [facility] PERIOPERATIVE DEPT 2013 [place], [place] [id number] Social History Tobacco Use Types Packs/Day Years [...] Description 04/29/2025 10:30 AM EST Office Visit [facility] 55 [facility], 5th [place] [address] aRnjit Morley MD 15 [facility] 535 [place] [address] [email or web address] 05/18/2025 8:45 AM EST Evaluation [facility] [address] [place] [address] Charissa Lew AuD 243 [place] [address] [email or web address] 05/18/2025 9:30 AM EST Office Visit [facility] [address] [place] [address] Arturo Bunn MD, PhD [address] [place] [address] [email or web address] 06/08/2025 3:00 PM EST Office Visit [facility] 15 [facility], [address] [place] [address] Miki Blackwood MD 55 [facility] [address] [place] [address] [email or web address] 08/27/2025 9:10 AM EDT Office Visit [facility] 70 [place] [address] Pooja Jacob MD [address] [address] [email or web address] [place] [email or web address] 09/24/2025 10:30 AM EDT Office Visit [facility] Card[facility] 52 [facility], [address] [place] [address] Magnus Perez MD 55 [facility] 5B [place] [address] [email or web address] documented as of this encounter Visit Diagnoses Not on filedocumented in this encounter Care Teams Event Marketing Specialist Relationship Specialty Start Date End Date Brett Sharma NP [address] [place] [address] PCP - General Family Medicine 08/16/21 Arturo Lawrence MD, PhD 55 [facility] Outpatient CareYAW 7B [place] [address] AURELIA@[email or web address].[facility] Hematology and Oncology 07/06/17 documented as of this encounter Additional Source Comments The information contained in this document represents components of the legal health record. It is not the complete legal health record.[facility]
--- OUTSIDE RECORDS SUMMARY | 2025-04-20 08:40 | XMS_ITS | Encounter Summary ---
Author Organization [facility] Address [address] [place] [address] Care Team Providers Care Home Health Care Social Worker Name Role Phone Brett Sharma NP Primary Care Provider + [phone] Isis Young RN Unavailable [phone] Tip Campos MD Unavailable [phone] Magnus Perez MD Unavailable [phone] System, Provider Not In Unavailable Unavaila Miki iDana MD Unavailable [phone] Raúl Pike MD Unavailable Jorge Moreno DO Unavailable [phone] Arturo Bunn MD Unavailable Leatha Mc Unavailable [phone] Encounter Details Date Type Department Care Team (Late st Contact Info) Description 01/22/2025 Scanned Document [facility] [id number] [address] [place] [address] Tip Campos MD [address] [place] [address] [place] [address] Social History Tobacco Use Types Packs/Day [...] [facility] Plastic & Reconstructive Surgery [place] 399 [facility] [address] [place] [phone] Clyde Martin PA [address] [place] [address] 04/28/2025 3:45 PM EST Office Visit [facility] [address] [address] Alonzo Root MD 8 [place] [address] 06/01/2025 10:00 AM EST Office Visit [facility] Neurosurgery [place] 85 [facility] [address] [place] [phone] Samara Mendoza PA-C 85 [facility] [address] [place] [phone] documented as of this encounter Visit Diagnoses Not on filedocumented in this encounter Care Teams Home Health Care Social Worker Relationship Specialty Start Date End Date Brett Sharma NP [address] [place] [address] PCP - General Family Medicine 03/03/24 Isis Young, DANE 80 [place] [address] Nurse Navigator Surgery, Neurosurgery 01/25/25 Tip Campos MD [address] [address] Surgery, Neurosurgery 02/01/25 Magnus Perez MD [address] [place] [phone] Cardiovascular Disease 02/01/25 System, Provider Not In [address] [place] [phone] Hematology Oncology 02/01/25 Miki Blackwood MD [address] [place] [address] Endocrinology 02/01/25 Raúl Pike MD [address] [place] [address] Gastroenterology 02/01/25 Jorge Moreno DO [address] [place] [address] Immunology 02/01/25 Arturo Bunn MD [address] [place] [address] Otolaryngology 02/01/25 Leatha Mc PA [address] [address] Physician Ware Carrier Surgery, Neurosurgery 02/05/25 documented as of this encounter
--- OUTSIDE RECORDS SUMMARY | 2025-04-20 08:40 | XMS_ITS | Encounter Summary ---
Author Organization [facility] Address [address] [place] [address] Phone Care Team Providers Care Gardening Supervisor Name Role Phone Arturo Lawrence MD, PhD Unavailable [phone] Brett Sharma NP Primary Care Provider + Reason for Visit * Reason Onset Date Comments s/p procedure question 10/08/2023 Shannen Hernandez Encounter Details Date Type Department Care Team (Late st Contact Info) Description 10/08/2023 Telephone [facility]necology [facility] 55 [facility], 4th Floor, [address] [place] [address] Shannen [place] MD [address] [place] [place] [address] [email or web address] s/p procedure question (Shannen [place]) [...] Description 04/29/2025 10:30 AM EST Office Visit [facility] 55 [facility], 5th [place] [address] Ranjit Morley MD [address] [address] [email or web address] 05/18/2025 8:45 AM EST Evaluation [facility] [address] [place] [address] Chraissa Lew AuD [address] [place] [address] [email or web address] 05/18/2025 9:30 AM EST Office Visit [facility] [address] [place] [address] Arturo Bunn MD, PhD [address] [place] [address] [email or web address] 06/08/2025 3:00 PM EST Office Visit [facility] 15 [facility], [address] [place] [address] Miki lBackwood MD 55 [facility] [address] [place] [address] [email or web address] 08/27/2025 9:10 AM EDT Office Visit [facility] 70 [place] [address] Pooja Jacob MD 75 [facility]3 [place] [address] [email or web address] 09/24/2025 10:30 AM EDT Office Visit [facility] Cardiology [facility] 52 [facility], [address] [place] [address] Magnus Perez MD 55 [facility] 5[address] [place] [address] [email or web address] documented as of this encounter Visit Diagnoses Not on filedocumented in this encounter Care Teams Gardening Supervisor Relationship Specialty Start Date End Date Brett Sharma NP [address] [place] [address] PCP - General Family Medicine 08/16/21 Arturo Lawrence MD, PhD 55 [facility] for Outpatient CareYAW 7[address] [place] [address] AURELIA@[email or web address] Hematology and Oncology 07/06/17 documented as of this encounter Additional Source Comments The information contained in this document represents components of the legal health record. It is not the complete legal health record.[facility]
--- OUTSIDE RECORDS SUMMARY | 2025-04-20 08:40 | XMS_ITS | Encounter Summary ---
Author Organization [facility] Address 399 [facility] [address] [place] [address] Phone Care Team Providers Care Facs Teacher Name Role Phone Arturo Lawrence MD, PhD Unavailable [phone] Brett Sharma NP Primary Care Provider + Encounter Details Date Type Department Care Team (Late Contact Info) Description 09/25/2023 Procedure Pass [facility] [address] [place] [id number] Social History Tobacco Use Types Packs/Day Years [...] Description 04/29/2025 10:30 AM EST Office Visit [facility] 55 [facility], 5th [place] [address] Ranjit Morley MD [address] [address] [email or web address] 05/18/2025 8:45 AM EST [facility] [address] [place] [address] Charissa Lew AuD 243 [place] [address] [email or web address] 05/18/2025 9:30 AM EST Office Visit [facility] Otology [facility] [address] [place] [address] Arturo Bunn MD, PhD [address] [place] [address] [email or web address] 06/08/2025 3:00 PM EST Office Visit [facility] 15 [facility], [address] [place] [address] Miki Blackwood MD 55 [facility] [address] [place] [address] KALPANA@[email or web address] 08/27/2025 9:10 AM EDT Office Visit [facility] 70 [place] [address] Pooja Jacob MD [address] [address] NINI@[facility] 09/24/2025 10:30 AM EDT Office Visit [facility] Cardiology Clinic [address] [place] [facility], [address] [place] [address] Magnus Perez MD 55 [facility] 5B [place] [address] [email or web address] documented as of this encounter Visit Diagnoses Not on filedocumented in this encounter Care Teams Facs Teacher Relationship Specialty Start Date End Date Brett Sharma, SELWYN [address] [facility] [place] [address] PCP - General Family Medicine 08/16/21 Arturo Lawrence MD, PhD [address] [place] [address] Outpatient CareYAW 7B [place] [address] AURELIA@[email or web address] Hematology and Oncology 07/06/17 documented as of this encounter Additional Source Comments The information contained in this document represents components of the legal health record. It is not the complete legal health record.[facility]
--- OUTSIDE RECORDS SUMMARY | 2025-04-20 08:40 | XMS_ITS | Encounter Summary ---
Author Organization [facility] Address 399 [facility] [address] [place] [address] Phone Care Team Providers Care Registered Client Associate Name Role Phone Arturo Lawrence MD, PhD Unavailable [phone] Brett Sharma NP Primary Care Provider + Encounter Details Date Type Department Care Team (Late st Contact Info) Description 09/28/2022 Procedure Pass [facility] [place] [address] [facility], 6th [place] [address] Social History Tobacco Use Types Packs/Day Years [...] Description 04/29/2025 10:30 AM EST Office Visit [facility] 55 [facility], 5th [place] [address] Ranjit Morley MD 15 [facility] 535 [place] [address] [email or web address] 05/18/2025 8:45 AM EST [facility] [address] [place] [address] Charissa Lew AuD 243 [place] [address] [email or web address] 05/18/2025 9:30 AM EST Office Visit [facility] [address] [place] [address] Arturo Bunn MD, PhD [address] [place] [address] [email or web address]@[facility] 06/08/2025 3:00 PM EST Office Visit [facility] 15 [facility], [address] [place] [address] Miki Blackwood MD 55 [facility] [address] [place] [address] KALPANA@[email or web address] 08/27/2025 9:10 AM EDT Office Visit [facility] 70 [place] [address] Pooja Jacob MD [address] [address] [email or web address] 09/24/2025 10:30 AM EDT Office Visit [facility] 52 [facility], [address] [place] [address] Magnus Perez MD 55 [facility] 5B [place] [address] [email or web address] documented as of this encounter Visit Diagnoses Not on filedocumented in this encounter Care Teams Registered Client Associate Relationship Specialty Start Date End Date Brett Sharma NP 1961 [facility] [address] PCP - General Family Medicine 08/16/21 Arturo Lawrence MD, PhD [address] [place] [address] Outpatient CareYAW 7B [place] [address] AURELIA@[email or web address].[facility] Hematology and Oncology 07/06/17 documented as of this encounter Additional Source Comments The information contained in this document represents components of the legal health record. It is not the complete legal health record.[facility]
--- OUTSIDE RECORDS SUMMARY | 2025-04-20 08:40 | XMS_ITS | Encounter Summary ---
Author Organization [facility] Address 399 [facility] [address] [place] [address] Phone Care Team Providers Care Branch Manager Trainee Name Role Phone Arturo Lawrence MD, PhD Unavailable [phone] Brett Sharma NP Primary Care Provider + Encounter Details Date Type Department Care Team (Late st Contact Info) Description 08/28/2022 Procedure Pass [facility], Ct Scan - [address] [address] Social History Tobacco Use Types Packs/Day Years [...] Description 04/29/2025 10:30 AM EST Office Visit [facility] 55 [facility], 5th [place] [address] Ranjit Morley MD [address] [address] [email or web address] 05/18/2025 8:45 AM EST Evaluation [facility] [address] [place] [address] Charissa Lew AuD [address] [place] [address] Amanda@[email or web address] 05/18/2025 9:30 AM EST Office Visit [facility] [address] [place] [address] Arturo Bunn MD, PhD [address] [place] [address] [email or web address] 06/08/2025 3:00 PM EST Office Visit [facility] 15 [facility], [address] [place] [address] Miki Blackwood MD [address] [place] [address] 7[address] [place] [address] KALPANA@[facility] 08/27/2025 9:10 AM EDT Office Visit [facility] 70 [place] [address] Pooja Jacob MD [address] [place] [address] NINI@[email or web address] 09/24/2025 10:30 AM EDT Office Visit [facility] Cardiology Clinic 52 [facility], [address] [place] [address] Magnus Perez MD [address] [address] [email or web address] documented as of this encounter Visit Diagnoses Not on filedocumented in this encounter Care Teams Branch Manager Trainee Relationship Specialty Start Date End Date Brett Sharma NP [address] [facility] [place] [address] PCP - General Family Medicine 08/16/21 Arturo Lawrence MD, PhD [address] [place] [address] [address] AURELIA@[email or web address] H[facility]ology and Oncology 07/06/17 documented as of this encounter Additional Source Comments The information contained in this document represents components of the legal health record. It is not the complete legal health record.[facility]
--- OUTSIDE RECORDS SUMMARY | 2025-04-20 08:40 | XMS_ITS | Encounter Summary ---
Author Organization [facility] Address [address] [place] [address] Care Team Providers Care Demolition Expert Name Role Phone Brett Sharma NP Primary Care Provider + [phone] Isis Young RN Unavailable Tip Campos MD Unavailable Magnus Perez MD Unavailable [phone] System, Provider Not In Unavailable Unavaila Miki Diana MD Unavailable [phone] Raúl Pike MD Unavailable Jorge Moreno DO Unavailable [phone] Arturo Bunn MD Unavailable Leatha Mc Unavailable [phone] Encounter Details Date Type Department Care Team (Late st Contact Info) Description 01/27/2025 Scanned Document [facility] Neurosurgery [address] [place] [address] Tip Campos MD [address] [place] [address] 1003 [place] [address] Social History Tobacco Use Types [...] Description 04/26/2025 1:00 PM EST Office Visit [facility] Plastic & Reconstructive Surgery [place] 399 [facility] 210 [place] [address] Clyde Martin, AJAY 399 [facility] 210 [place] [address] 04/28/2025 3:45 PM EST Office Visit [facility] [place] [address] [place] [phone] Alonzo Root MD 9 [place] [address] 06/01/2025 10:00 AM EST Office Visit [facility] Neurosurgery [place] 85 [facility] [address] [place] [phone] Samara Mendoza PA-C [address] [address] documented as of this encounter Visit Diagnoses Not on filedocumented in this encounter Care Teams Demolition Expert Relationship Specialty Start Date End Date Brett Sharma NP 262 [place] [address] PCP - General Family Medicine 03/03/24 Isis Young RN 80 [place] [address] Nurse Navigator Surgery, Neurosurgery 01/25/25 Tip Campos MD [address] [address] Surgery, Neurosurgery 02/01/25 Magnus Perez MD [address] [place] [phone] Cardiovascular Disease 02/01/25 System, Provider Not In [address] [place] [phone] Hematology Oncology 02/01/25 Miki Blackwood MD [address] [place] [address] Endocrinology 02/01/25 Raúl Pike MD [address] [place] [address] [address] [facility] [place] [address] Gastroenterology 02/01/25 Jorge Moreno DO 269 [facility] 201 [place] [address] Immunology 02/01/25 Arturo Bunn MD [address] [place] [address] Otolaryngology 02/01/25 Leatha Mc PA [address] [address] Physician Rigger Helper Surgery, Neurosurgery 02/05/25 documented as of this encounter
--- OUTSIDE RECORDS SUMMARY | 2025-04-20 08:40 | XMS_ITS | Encounter Summary ---
Author Organization [facility] Address [address] [address] Phone Care Team Providers Care Automatic Hemmer Name Role Phone Pcp, Not Required Primary Care Provider Unavaila Arturo Tong MD, PhD Unavailable [phone] Rylee Zendejas JAVA SECURITY ARCHITECT Primary Care Provider Unknown, Unknown Primary Care Provider Rylee Sanchez JAVA SECURITY ARCHITECT Primary Care Provider Brett Sharma JAVA SECURITY ARCHITECT Primary Care Provider + Encounter Details Date Type Department Care Team (Late st Contact Info) Description 08/14/2018 Transcribe Orders [facility] Phleb Main 30 [place] [address] Arturo Lawrence MD, PhD [address] [place] [address] [address] [email or web address] u Social History Tobacco Use [...] Description 04/29/2025 10:30 AM EST Office Visit [facility] 55 [facility], 5th [place] [address] Ranjit Morley MD 15 [facility] 535 [place] [address] [email or web address] 05/18/2025 8:45 AM EST Evaluation [facility] [address] [place] [address] Charissa Lew AuD [address] [place] [address] [email or web address] 05/18/2025 9:30 AM EST Office Visit [facility] [address] [place] [address] Arturo Bunn MD, PhD [address] [place] [address] [email or web address] 06/08/2025 3:00 PM EST Office Visit [facility] [address] [facility], [address] [place] [address] Miki Blackwood MD 55 [facility] [address] [place] [address] [email or web address] 08/27/2025 9:10 AM EDT Office Visit [facility] 70 [place] [address] Pooja Jacob MD [address] [address] [email or web address] 09/24/2025 10:30 AM EDT Office Visit [facility] [address] [facility], [address] [place] [address] Magnus Perez MD 55 [facility] 5B [place] [address] [email or web address] documented as of this encounter Visit Diagnoses Not on filedocumented in this encounter Care Teams Automatic Hemmer Relationship Specialty Start Date End Date Pcp, Not Required PCP - General 08/24/16 04/26/19 Rylee Zendejas, SELWYN [address] [place] [address] [email or web address] PCP - General Family Medicine 04/27/19 06/15/19 Unknown, Unknown, [address] [place] [address] PCP - General 06/16/19 06/22/19 Rylee Zendejas NP [address] [place] [address] [place] [address] [email or web address] PCP - General Family Medicine 06/23/19 08/15/21 Brett Sharma NP [address] [place] [address] [place] [address] PCP - General Family Medicine 08/16/21 Arturo Lawrence MD, PhD 55 [facility] Outpatient Care[facility] [address] [place] [address] [email or web address] Hematology and Oncology 07/06/17 documented as of this encounter Additional Source Comments The information contained in this document represents components of the legal health record. It is not the complete legal health record.[facility]
--- OUTSIDE RECORDS SUMMARY | 2025-04-20 08:40 | XMS_ITS | Encounter Summary ---
Author Organization [facility] Address [address] [address] Phone Care Team Providers Care Filler And Trimmer Name Role Phone Pcp, Not Required Primary Care Provider Unavaila Arturo Tong MD, PhD Unavailable [phone] Rylee Zendejas NATIONAL SECRETARY Primary Care Provider Unknown, Unknown Primary Care Provider Rylee Sanchez NATIONAL SECRETARY Primary Care Provider Brett Sharma NATIONAL SECRETARY Primary Care Provider + Encounter Details Date Type Department Care Team (Late st Contact Info) Description 08/14/2018 Transcribe Orders [facility] Phleb Main 30 [place] [address] Arturo Lawrence MD, PhD [address] [place] [address] [address] [email or web address] u Social History Tobacco Use Types Packs/Day [...] Visit [facility] 55 [facility], 5th [place] [address] Ranjit Morley MD 15 [facility] 535 [place] [address] [email or web address] 05/18/2025 8:45 AM EST Evaluation [facility] [address] [place] [address] Charissa Lew AuD [address] [place] [address] [email or web address] 05/18/2025 9:30 AM EST Office Visit [facility] [address] [place] [address] Arturo Bunn MD, PhD [address] [place] [address] [email or web address] 06/08/2025 3:00 PM EST Office Visit [facility] 15 [facility], [address] [place] [address] Miki Blackwood MD 55 [facility] [address] [place] [address] [email or web address] 08/27/2025 9:10 AM EDT Office Visit [facility] 70 [place] [address] Pooja Jacob MD [address] [address] [email or web address] 09/24/2025 10:30 AM EDT Office Visit [facility] [address] [facility], [address] [place] [address] Magnus Perez MD [address] [facility] 5[address] [place] [address] [email or web address] documented as of this encounter Visit Diagnoses Not on filedocumented in this encounter Care Teams Filler And Trimmer Relationship Specialty Start Date End Date Pcp, Not Required PCP - General 08/24/16 04/26/19 Ryele Zendejas, SELWYN [address] [place] [address] [email or web address] PCP - General Family Medicine 04/27/19 06/15/19 Unknown, Unknown, [address] [place] [address] PCP - General 06/16/19 06/22/19 Rylee Zendejas NP [address] [place] [address] [place] [address] [email or web address] PCP - General Family Medicine 06/23/19 08/15/21 Brett Sharma NP [address] [place] [address] [place] [address] PCP - General Family Medicine 08/16/21 Arturo Lawrence MD, PhD 55 [facility] Outpatient CareYAW [address] [place] [address] [email or web address] Hematology and Oncology 07/06/17 documented as of this encounter Additional Source Comments The information contained in this document represents components of the legal health record. It is not the complete legal health record.[facility]
--- OUTSIDE RECORDS SUMMARY | 2025-04-20 08:41 | XMS_ITS | Encounter Summary ---
Author Organization [facility] Address [address] [address] Phone Care Team Providers Care Diesel Pile Driver Operator Name Role Phone Pcp, Not Required Primary Care Provider Arturo Castillo MD, PhD Unavailable [phone] SPECIALIST Primary Care Provider Unknown, Unknown Primary Care Provider Rylee Sanchez COURT SPECIALIST Primary Care Provider Brett Sharma COURT SPECIALIST Primary Care Provider + Reason for Referral * Consultation (Elective) - Closed Specialty Diagnoses / Procedures Referred By Contact Referred To Contact Pediatric Gastroenterology Diagnoses Non-celiac gluten sensitivity System, Provider Not In, PhD [address] [address] Referral ID Status Reason Start Date Expiration Date Visits Re quested Visits Authorized [id number] Closed 08/24/2016 08/24/2017 1 1 Encounter Details Date Type Department Care Team (Late st Contact Info) Description 08/24/2016 Transcribe Orders [facility] [address] [place] [address] Pcp, Not Required Non-celiac gluten sensitivity (Primary [...] Description 04/29/2025 10:30 AM EST Office Visit [facility] 55 [facility], 5th [place] [address] Ranjit Morley MD [address] [address] [email or web address] 05/18/2025 8:45 AM EST Evaluation [facility] [address] [place] [address] Charissa Lew AuD [address] [place] [address] [email or web address] 05/18/2025 9:30 AM EST Office Visit [facility] [address] [place] [address] Arturo Bunn MD, PhD [address] [place] [id number] [email or web address] 06/08/2025 3:00 PM EST Office Visit [facility] 15 [facility], [address] [place] [address] Miki Blackwood MD 55 [facility] [address] [place] [address] [email or web address] 08/27/2025 9:10 AM EDT Office Visit [facility] 70 [place] [address] Pooja Jacob MD [address] [place], [place] [address] [place] [address] [email or web address] 09/24/2025 10:30 AM EDT Office Visit [facility] Cardiology [facility] 52 [facility], [address] [place] [address] Magnus Perez MD [address] [address] [email or web address] Scheduled Referrals Name Type Priority Associated Diagnoses Orde r Schedule [facility]ulatory referral [facility] GI/Nutrition Outpatient Referral Routine Non-celiac gluten sensitivity Ordered: 08/24/2016 documented as of this encounter Visit Diagnoses Diagnosis 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 PCP - General Family Medicine 04/27/19 06/15/19 Unknown, Cesario, [address] [place] [address] PCP - General 06/16/19 06/22/19 Rylee Zendejas NP [address] [place] [address] [place] [address] [email or web address] PCP - General Family Medicine 06/23/19 08/15/21 Brett Sharma NP [address] [place] [address] [place] [address] PCP - General Family Medicine 08/16/21 Arturo Lawrence MD, PhD 55 [facility] Outpatient CareYAW [address] [place] [address] [email or web address] Hematology and Oncology 07/06/17 documented as of this encounter Additional Source Comments The information contained in this document represents components of the legal health record. It is not the complete legal health record.[facility]
--- OUTSIDE RECORDS SUMMARY | 2025-04-20 08:41 | XMS_ITS | Encounter Summary ---
Author Organization [facility] Address [address] [place] [address] Phone Care Team Providers Care Live Hanger Name Role Phone Arturo Lawrence MD, PhD Unavailable [phone] Brett Sharma NP Primary Care Provider + Encounter Details Date Type Department Care Team (Late st Contact Info) Description 06/21/2023 Procedure Pass [facility] [address] [facility], [address] [place] [id number] Social History Tobacco Use Types Packs/Day Years [...] Description 04/29/2025 10:30 AM EST Office Visit [facility] 55 [facility], 5th [place] [address] Ranjit Morley MD [address] [address] [email or web address] 05/18/2025 8:45 AM EST Evaluation [facility] [address] [place] [address] Charissa Lew AuD [address] [place] [address] [email or web address] 05/18/2025 9:30 AM EST Office Visit [facility] [address] [place] [address] Arturo Bunn MD, PhD [address] [place] [address] [email or web address] 06/08/2025 3:00 PM EST Office Visit [facility] 15 [facility], [address] [place] [address] Miki Blackwood MD 55 [facility] [address] [place] [address] [email or web address] 08/27/2025 9:10 AM EDT Office Visit [facility] 70 [place] [address] Pooja Jacob MD [address] [address] [email or web address]@[email or web address] 09/24/2025 10:30 AM EDT Office Visit [facility] [address] [facility], [address] [place] [address] Magnus Perez MD 55 [facility] 5B [place] [address] [email or web address] documented as of this encounter Visit Diagnoses Not on filedocumented in this encounter Care Teams Live Hanger Relationship Specialty Start Date End Date Brett Sharma NP [address] [place] [address] PCP - General Family Medicine 08/16/21 Arturo Lawrence MD, PhD 55 [facility] Outpatient CareYAW [address] [place] [address] [email or web address] Hematology and Oncology 07/06/17 documented as of this encounter Additional Source Comments The information contained in this document represents components of the legal health record. It is not the complete legal health record.[facility]
== END 2025-04-20 08:05 | disposition home or self-care (01) ==
LOC: HO.HMCC 06:57
PROVIDERS: PCP Nurse Practitioner Family; Visit Provider Nurse Practitioner Family
DX: J06.9 Acute upper respiratory infection, unspecified (principal); B37.0 Candidal stomatitis; B35.9 Dermatophytosis, unspecified